=== PATIENT | female | born 1950 | race Caucasian/White ===

== ENCOUNTER 2022-05-25 09:00 | Outpatient (RCR) | payer MEDICARE, BC, SELFPAY | END 2022-06-28 11:31 | disposition home or self-care (01) | PROVIDERS: PCP Family Medicine; Visit Provider Orthopaedic Surgery | DX: M25.562 Pain in left knee (principal) | CPT/HCPCS: 97110 ==

== ENCOUNTER 2022-09-07 10:57 | Outpatient (CLI) | payer MEDICARE, BC, SELFPAY ==
[2022-09-07 11:09] VITALS: BP 186/77; PULSE 76; RESP 18; O2SAT 96
[2022-09-07] MEDS: TETRACAINE 0.5% OPHTH 1 DROP EYE-LEFT ×3 (11:11→11:39)
[2022-09-07] MEDS: BRIMONIDINE TARTRATE 0.2% OPHTH 1 DROP EYE-LEFT ×2 (11:12→11:48)
--- NOTE | 2022-09-07 13:37 | P.OPTPRC_ITS ---
Procedure Note Date of procedure: 09/07/22 Will [facility] bill your pro fee for this procedure?: Yes Procedure Description: SURGEON: Karley West MD PREOPERATIVE DIAGNOSIS: Posterior capsular opacity, left eye POSTOPERATIVE DIAGNOSIS: Posterior capsular opacity, left eye PROCEDURE: YAG laser capsulotomy, left eye ANESTHESIA: Topical. ESTIMATED BLOOD LOSS: None PATHOLOGY SPECIMEN: None COMPLICATIONS: None INDICATIONS: See consult note for details. The risks, benefits and alternatives of the procedure were explained to the patient, who elected to proceed and signed informed consent to do so. PROCEDURE: The patient was brought to the pre-holding area where the left eye was identified as the operative eye. I placed my initials above this eye. The patient received 2 sets of 1 drop of 0.5% tetracaine and 1 drop of 1% tropicamide. They also received 1 drop of 0.2% brimonidine. They received 1 drop of 0.5% tetracaine immediately prior to bringing them back for the procedure. The patient was then brought to the procedure room where the left eye was again identified as the operative eye. A YAG Nile capsulotomy lens was placed on the eye. The laser was administered using a total number of 15 shots with an energy of 2.4 mJ per shot for a total energy of 36 mJ. The patient tolerated the procedure well. DISPOSITION: The patient was taken back to the pre-holding area and given 1 drop of 0.2% brimonidine in the left eye. They were discharged to home in stable condition. The patient was instructed to call me or go to the emergency department with any sudden change, including dramatic loss of vision, severe pain in the eye or eyebrow region, nausea, or vomiting. The patient was instructed to use the 0.2% brimonidine 1 drop 2 times a day in the left eye for 1 week. The patient will follow up in the clinic in 1-2 weeks Surgeon: Karley West MD
== END 2022-09-07 11:54 | disposition home or self-care (01) ==
PROVIDERS: PCP Family Medicine; Visit Provider Ophthalmology
DX: H26.9 Unspecified cataract (principal)
CPT/HCPCS: 66821; A9270

== ENCOUNTER 2023-09-03 15:14 | Outpatient (CLI) | payer MEDICARE, BC, SELFPAY | END 2023-09-03 15:15 | disposition home or self-care (01) | LOC: AMB 09-06 11:44 | PROVIDERS: PCP Family Medicine; Visit Provider Emergency Medicine | DX: R53.1 Weakness (principal) | CPT/HCPCS: A0998 ==

== ENCOUNTER 2023-09-17 13:28 | Outpatient (CLI) | payer MEDICARE, BC, SELFPAY | END 2023-09-17 13:29 | disposition home or self-care (01) | LOC: AMB 09-18 10:12 | PROVIDERS: PCP Family Medicine; Visit Provider Family Medicine | DX: R20.0 Anesthesia of skin (principal); R53.1 Weakness | CPT/HCPCS: A0425; A0429 ==

== ENCOUNTER 2023-09-17 13:56 | Emergency (ER) | payer MEDICARE, BC, SELFPAY ==
[2023-09-17] VITALS (17 sets, daily range): BP systolic 146–182; BP diastolic 81–119; PULSE 67–90; TEMP 36.2; O2SAT 87–98; BMI 36.9
--- NOTE | 2023-09-17 14:37 | ED_ITS ---
HPI - General Adult General Time Seen by Provider: 14:37 Date Seen: 09/17/23 Chief complaint: Flank Pain Stated complaint: Flank pain Time Seen by Provider: 09/17/23 14:00 Source: patient and RN notes reviewed Mode of arrival: ambulatory Limitations: no limitations History of Present Illness HPI narrative: This 73-year-old female presents with her with concern of left-sided pain in left leg pain. History is complex. She admits she is sleep deprived it, oxycodone is still not helping her sleep due to her symptoms. About 4 weeks ago she was being treated for sciatica, eventually had a CT done in clinic with her primary provider Dr. Sterling. This showed a obstructing kidney stone on the left side reportedly and an ovarian cyst. She does endorse that she has had a follow-up ultrasound, there still working on the follow-up on the definitive care for the ovary. With the kidney stone found, she was having flank pain as well as left leg pain. Initially thought she was just having sciatica but the stone was found. Two weeks ago the parking enforcement manager had Sanjay get her off the floor as she fell because of her left leg symptoms, she is walking with a walker at home, does not really trust her leg to not give out. She feels like this left leg is no longer strong. She saw a urologist in [place] about 3 weeks ago, had a stent placed at [place]. She states they were not going to be able to do the stone removal until October. Her doctor called the urologist at [place], he was able to get her in and she had the left kidney stone removed on September 13. The urologist in [place] replace the stent last week, she is scheduled to see him this upcoming weekend likely have it removed. 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 She has had a numb left leg since then, states she did see Neurology, sounds if she had EMG is to diagnosis. She originally had a footdrop on this side in more brace. After about a year waiting, she was able to wean out of the brace. They stated that this nerve damage was idiopathic, had really no reason for it. They told her that the nerve would heal about an inch per month but she has never develope sensation back in this leg. It is numb from the hip down to the toes. She is not having any footdrop now. She did have a left total knee arthroplasty about a urine half ago, had a prior scope on this knee for cartilage damage. Her right knee has been replaced as well. She just noting that the left leg just seems to be giving out, does not really have any pain in the knee. She is getting sharp shooting pain up and down the leg, worse at night when she goes to bed. It is not precipitated by exercise. As far as urinary incontinence, she can not really tell as there has been incontinent since the stents have been placed at times. She has been using oxycodone for pain, this is not helping at night, she is not sleeping. She feels like she still having normal stools, is not noting constipation from her use of oxycodone. She knows that having stents in can be painful, does endorse ongoing left flank pain as well. No fevers. Related Data Home Medications Medication Instructions Recorded Confirmed cholecalciferol (vitamin D3) 25 25 mcg PO DAILY 06/14/22 09/17/23 mcg (1,000 unit) tablet diphenhydramine 25 2 tab PO .Bedtime 06/14/22 12/14/22 mg-acetaminophen 500 mg tablet fluoxetine 60 mg tablet 60 mg PO QAM 06/14/22 12/14/22 lisinopril 40 mg tablet 40 mg PO QDAY 06/14/22 09/17/23 rosuvastatin 10 mg tablet 10 mg PO .Bedtime 06/14/22 09/17/23 triamterene 37.5 1 tab PO DAILY 06/14/22 09/17/23 mg-hydrochlorothiazide 25 mg tablet fluoxetine 40 mg capsule 40 mg PO 12/14/22 12/14/22 cefdinir 300 mg capsule 300 mg PO Q12H 09/17/23 09/17/23 methocarbamol 500 mg tablet PO 09/17/23 omeprazole 40 mg capsule,delayed 40 mg PO DAILY 09/17/23 09/17/23 release oxycodone 5 mg tablet 5 mg PO Q6H PRN pain 09/17/23 09/17/23 Previous Rx's Medication Instructions Recorded gabapentin 100 mg capsule 100 mg PO QHS #10 caps 09/17/23 Allergies Allergy/AdvReac Type Severity Reaction Status Date / Time shellfish derived AdvReac Verified 09/17/23 14:15 Review of Systems Status of ROS: Reports: 10 or more systems reviewed and unremarkable except as noted in History and below [facility] Medical History High cholesterol ?E78.00 - Pure hypercholesterolemia, unspecified (ICD-10) Shingles ?B02.9 - Zoster without complications (ICD-10) Kidney stones ?N20.0 - Calculus of kidney (ICD-10) Surgical History History of cholecystectomy ?Z90.49 - Acquired absence of other specified parts of digestive tract (ICD- 10) Previous section (1981) ?Z98.891 - History of uterine scar from previous surgery (ICD-10) History of medial meniscus repair of left knee (12/08/06) ?Z98.890 - Other specified postprocedural states (ICD-10) 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) ?Z96.651 - Presence of right artificial knee joint (ICD-10) Status post left knee replacement (12/30/21) ?Z96.652 - Presence of left artificial knee joint (ICD-10) Social History Smoking Status: Never smoker Do you use any of these nicotine containing products: None Second hand tobacco smoke exposure: No How often do you have a drink containing alcohol: never How often do you have six or more drinks on one occasion: Never AUDIT-C Alcohol total score: 0 Non-prescribed substance use: denies use Exam Const: Vital Signs, click to edit/add: Vital Signs - 24 hr 09/17/23 13:58 09/17/23 14:31 09/17/23 14:32 Temperature 97.1 F L Pulse Rate 71 67 Pulse Rate [Right Pulse Oximeter] 83 Blood Pressure 167/88 H Blood Pressure [Le ft Upper Arm] 159/100 H Pulse Oximetry 98 93 95 Oxygen Delivery Me thod Room Air 09/17/23 14:45 09/17/23 15:00 09/17/23 15:02 Temperature Pulse Rate 76 73 72 Pulse Rate [Right Pulse Oximeter] Blood Pressure 182/104 H Blood Pressure [Le ft Upper Arm] Pulse Oximetry 97 94 93 Oxygen Delivery Me thod 09/17/23 16:01 09/17/23 16:02 09/17/23 16:15 Temperature Pulse Rate 77 75 79 Pulse Rate [Right Pulse Oximeter] Blood Pressure 146/97 H Blood Pressure [Le ft Upper Arm] Pulse Oximetry 97 98 96 Oxygen Delivery Me thod 09/17/23 16:30 09/17/23 16:32 Temperature Pulse Rate 70 69 Pulse Rate [Right Pulse Oximeter] Blood Pressure 153/81 H Blood Pressure [Le ft Upper Arm] Pulse Oximetry 96 96 Oxygen Delivery Me thod Patient is a very pleasant 73-year-old female in very talkative, speech is normal. She is alert, interactive, no parents stress, lying in the bed in exam room 8. Pupils equal round reactive, sclera clear, extraocular muscles intact. Symmetrical facial function. Neck is supple, no cervical adenopathy or thyromegaly masses or nodules. Lungs are clear, no wheezing or crackles, no tachypnea. CV regular rate and rhythm, no murmur, normal S1-S2, no S3 or S4. Abdomen is soft, nontender, no organomegaly or masses. She can lift each leg off the bed although on the left hip flexor, is maybe 4-5 instead of 5/5. Strength about the ankles is 5/5 and symmetric. There is no pitting edema in her lower extremities. She has normal sensation right leg, states the left leg he just feels numb when I touch it. Pulses are symmetric, no evidence of any vascular changes of her extremities. Documenting provider has reviewed patient's vital signs: yes Course Course ED Course: This is a difficult situation, patient has a known left leg idiopathic nerve damage of some sort, has left flank pain with known stent in place, no symptoms of infection. Is also an ovarian cyst of some sort. Do feel that we need to proceed with a lumbar MRI if I am able to secure this. Patient understands that we do not typically have coverage on the weekend, can see if we have staff that can do this at this time however. Certainly her stent can be giving her ongoing left flank pain, will get complement of labs including urinalysis, want to ensure no concern for infection. She indeed could have cord pathology or discogenic disease complicating the picture. If MRI of her back is not showing any evidence of anything acute, patient is idiopathic nerve damage which she reports might just be complicated by pain issues. Reevaluation(s) Time of Reevaluation #1: 17:47 Reevaluation #1: Reviewed with patient that her MRI is not suggestive of radiculopathy further the causation of her left leg symptoms. They do see the left adnexal mass, she reports she has had an ultrasound, her primary is working with her on definitive treatment of this as well. She likely just has ongoing pain from the stent as well, no evidence of infection at this time. She is on antibiotics, believe it is cefdinir. She should continue on this. Will certainly let her know if the urine culture shows any concerns. We are going to try gabapentin, do wonder if these leg symptoms are neuropathic or peripheral nerve pain, she may need to follow up with Neurology. She remembers taking gabapentin, tried once before, it did give her symptoms, sounds if she felt really lightheaded or woozy with it. We will try 100 mg just at bedtime, she is more than willing to try this, she states the pain at bedtime is really problematic for her. Thus, this really sounds like a neuropathic pain in the leg, think gabapentin might be a great place to start but will do so at a low dose of 100 mg. She understands that this may need to be titrated up with her primary care doctor. Vital Signs Vital signs: Initial Vital Signs Temperature 97.1 F L 09/17/23 13:58 Temperature Source Temporal Artery Scan 09/17/23 13:58 Pulse Rate 83 09/17/23 13:58 Blood Pressure 159/100 H 09/17/23 13:58 Blood Pressure Mean 119 H 09/17/23 13:58 Blood Pressure Position Semi-Fowlers 09/17/23 13:58 Pulse Oximetry 98 09/17/23 13:58 Oxygen Delivery Method Room Air 09/17/23 13:58 Vital Signs Temperature 97.1 F L 09/17/23 13:58 Pulse Rate 83 09/17/23 13:58 Blood Pressure 159/100 H 09/17/23 13:58 Pulse Oximetry 98 09/17/23 13:58 Oxygen Delivery Method Room Air 09/17/23 13:58 Temperature 97.1 F L 09/17/23 13:58 Pulse Rate 69 09/17/23 16:32 Blood Pressure 153/81 H 09/17/23 16:32 Pulse Oximetry 96 09/17/23 16:32 Oxygen Delivery Method Room Air 09/17/23 13:58 Medical Decision Making Lab Data Lab results reviewed: Yes I reviewed the patient's lab results Labs: Lab Results 09/17/23 09/17/23 Range/Units 15:11 15:25 WBC 8.88 (4.50-11.00) K/uL RBC 4.69 (4.00-5.20) m/uL Hgb 13.7 (12.0-16.0) gm/dL Hct 42.4 (33.0-51.0) % MCV 90 (80-100) fL MCH 29 (26-34) pg MCHC 32 (32-36) gm/dL RDW Coeff of Vilma 13.2 (11.5-15.5) % Plt Count 269 (140-440) K/uL Neut % (Auto) 67.3 (42.0-72.0) % Lymph % (Auto) 20.7 (20-44) % [place] % (Auto) 10.1 (0.0-11.0) % Eos % (Auto) 1.5 (0.0-7.0) % Baso % (Auto) 0.2 (0.0-3.0) % Neut # (Auto) 5.97 (1.7-7.0) K/uL Lymph # (Auto) 1.84 (0.90-2.90) K/uL [place] # (Auto) 0.90 (0.00-0.90) K/UL Eos # (Auto) 0.13 (0.00-0.50) K/uL Baso # (Auto) 0.02 (0.00-0.30) K/uL Abs Immat Gran (auto) 0.02 (0.00-0.30) K/uL Imm/Tot Granulo (auto) 0.2 % Sodium 136 (135-149) mmol/L Potassium 3.6 (3.6-5.1) mmol/L Chloride 105 (96-114) mmol/L Carbon Dioxide 26 (20-32) mmol/L Anion Gap 5 L (7-15) mEq/L BUN 16 (7-30) mg/dL Creatinine 0.5 (0.5-1.5) mg/dL Estimated Creat Clear 45.09 Estimated GFR 99 ml/min Glucose 105 (60-115) mg/dL Lactate 1.1 (0.5-1.9) mmol/L Calcium 8.9 (8.4-10.6) mg/dL Total Bilirubin 0.4 (0.1-1.5) mg/dL AST 23 (12-35) U/L ALT 18 (4-35) U/L Alkaline Phosphatase 60 (40-150) U/L C-Reactive Protein 0.8 (0.5-1.0) mg/dL Total Protein 6.9 (6.0-8.3) g/dL Albumin 3.7 (3.3-5.0) g/dL Urine Color Yellow (Yellow) Urine Appearance Cloudy A (Clear) Urine pH 7.0 (5.0-8.5) Ur Specific [place] 1.015 (1.000-1.030) Urine Protein 2+ A (Negative) Urine Glucose (UA) Negative (Negative) Urine Ketones Negative (Negative) Urine Blood 3+ A (Negative) Urine Nitrite Negative (Negative) Urine Bilirubin Negative (Negative) Urine Urobilinogen 0.2 (0.2-1.0) Ur Leukocyte Esterase 2+ A (Negative) Urine RBC 50-100 A (0-2) Urine WBC 5-10 A (0-5) Ur Squamous Epith Cells Few (None-Few) Urine Bacteria Few A (None) Imaging Data MR lumbar spine: Attestation: I have reviewed the pertinent imaging results. Radiologist's impression: [facility] Facility:[facility] Patient ID:?[id number] Site Patient ID:?[id number]. Site :?[id number] Study:?MRI Spine Lumbar WO-09/17/2023 4:08:22 PM Ordering Physician:Og Smith Final Report: Indication: Leg pain, numbness, weakness Technique: Multiplanar, multisequence, MRI of the lumbar spine, obtained without contrast. Comparison: CT abdomen pelvis 08/16/2023 Findings: Exaggerated lumbar lordosis. Trace retrolisthesis at L1-2, L2-3 and L3-4, trace anterolisthesis at L4-5 and L5-S1. No acute osseus abnormality. Unremarkable bone marrow signal. Conus medullaris terminates at approximately L2-3. No suspicious findings identified in the paraspinal soft tissues. Unremarkable including SI joints. Partially redemonstrated large left presumed adnexal cyst. T12-L1: Mild diffuse disc bulge. No neural foramina or spinal canal stenosis. L1-L2: Diffuse disc bulge, left asymmetric facet arthropathy. Mild bilateral neural foraminal narrowing. No spinal canal stenosis. L2-L3: Mild diffuse disc bulge, mild facet arthropathy. No significant neural f oraminal or spinal canal stenosis. L3-L4: Mild diffuse disc bulge, mild facet arthropathy. No significant neural foramina or spinal canal stenosis. L4-L5: Moderate facet arthropathy. No significant neural foraminal or spinal canal stenosis. L5-S1: Moderate facet arthropathy/ankylosis. No significant neural foraminal or spinal canal stenosis. Impression: 1. Exaggerated lumbar lordosis with multilevel trace degenerative spondylolisthesis. 2. Scattered spondylosis, without significant neural foraminal or spinal canal stenosis. 3. Redemonstration of large presumed left adnexal cyst, better assessed on prior CT abdomen and pelvis. Dictated by Eunice Fu MD @ 09/17/2023 4:51:01 PM (Electronic Signature) Critical Care Time Critical Care Time Critical Care Time: No Discharge Plan Discharge Clinical Impression: Neuropathy of left lower extremity, History of renal stent, Cyst of left ovary Patient Disposition: Home, Self-Care Condition: Stable Instructions: Peripheral Neuropathy (ED) Additional Instructions: Try gabapentin 100 mg at bedtime to start, this can be titrated up quite a bit, work with your primary care provider on doing this. You need to contact her tomorrow, see if you can get a follow-up within the next few days for re- evaluation/recheck. I would recommend considering going back to Neurology for further evaluation of your left leg symptoms. Bring a copy of the MRI report of your lumbar spine to your primary care provider. Can continue with your other medicines including oxycodone for pain management. Follow-up with urology as planned this week. Hopefully they will be able to take the stent out, this may help with some of the left flank pain. Need to continue to proceed with further workup and evaluation of the left ovarian cyst. Activity Level: Activity as Tolerated Prescriptions: New gabapentin 100 mg capsule 100 mg PO QHS Qty: 10 0RF No Action cholecalciferol (vitamin D3) 25 mcg (1,000 unit) tablet 25 mcg PO DAILY rosuvastatin 10 mg tablet 10 mg PO .Bedtime triamterene-hydrochlorothiazid 37.5-25 mg tablet 1 tab PO DAILY diphenhydramine-acetaminophen 25-500 mg tablet 2 tab PO .Bedtime lisinopril 40 mg tablet 40 mg PO QDAY fluoxetine 60 mg tablet 60 mg PO QAM fluoxetine 40 mg capsule 40 mg PO oxycodone 5 mg tablet 5 mg PO Q6H PRN (Reason: pain) methocarbamol 500 mg tablet PO omeprazole 40 mg capsule,delayed release(DR/EC) 40 mg PO DAILY cefdinir 300 mg capsule 300 mg PO Q12H Follow Up/Referrals: Wandy Sterling MD [Primary Care Provider] - Stand Alone Forms: [employer] Info Instructions
--- NOTE | 2023-09-17 14:59 | CRLHL7_ITS ---
For Patients: As a result of the Century Cures Act, medical imaging exams and procedure reports are released immediately into your electronic medical record. You may view this report before your referring provider. If you have questions, please contact your health care provider. Indication: Leg pain, numbness, weakness Technique: Multiplanar, multisequence, MRI of the lumbar spine, obtained without contrast. Comparison: CT abdomen pelvis 08/16/2023 Findings: Exaggerated lumbar lordosis. Trace retrolisthesis at L1-2, L2-3 and L3-4, trace anterolisthesis at L4-5 and L5-S1. No acute osseus abnormality. Unremarkable bone marrow signal. Conus medullaris terminates at approximately L2-3. No suspicious findings identified in the paraspinal soft tissues. Unremarkable including SI joints. Partially redemonstrated large left presumed adnexal cyst. T12-L1: Mild diffuse disc bulge. No neural foramina or spinal canal stenosis. L1-L2: Diffuse disc bulge, left asymmetric facet arthropathy. Mild bilateral neural foraminal narrowing. No spinal canal stenosis. L2-L3: Mild diffuse disc bulge, mild facet arthropathy. No significant neural foraminal or spinal canal stenosis. L3-L4: Mild diffuse disc bulge, mild facet arthropathy. No significant neural foramina or spinal canal stenosis. L4-L5: Moderate facet arthropathy. No significant neural foraminal or spinal canal stenosis. L5-S1: Moderate facet arthropathy/ankylosis. No significant neural foraminal or spinal canal stenosis. Impression: 1. Exaggerated lumbar lordosis with multilevel trace degenerative spondylolisthesis. 2. Scattered spondylosis, without significant neural foraminal or spinal canal stenosis. 3. Redemonstration of large presumed left adnexal cyst, better assessed on prior CT abdomen and pelvis. Dictated by Eunice Fu MD @ 09/17/2023 4:51:01 PM (Electronically Signed)
[2023-09-17 15:18] LABS: Basophils Absolute Auto 0.02 K/uL (0.00-0.30); Basophils Percent Auto 0.2 % (0.0-3.0); Eosinophils Absolute Auto 0.13 K/uL (0.00-0.50); Eosinophils Percent Auto 1.5 % (0.0-7.0); Hematocrit 42.4 % (33.0-51.0); Hemoglobin* 13.7 gm/dL (12.0-16.0); Immature Granulocytes Abs Auto 0.02 K/uL (0.00-0.30); Immature Granulocytes Pct Auto 0.2 %; Lactate* 1.1 mmol/L (0.5-1.9); Lymphocytes Absolute Auto 1.84 K/uL (0.90-2.90); Lymphocytes Percent Auto 20.7 % (20-44); Mean Corpuscular HGB Conc 32 gm/dL (32-36); Mean Corpuscular Hemoglobin 29 pg (26-34); Mean Corpuscular Volume 90 fL (80-100); Monocytes Percent Auto 10.1 % (0.0-11.0); Neutrophils Absolute Auto 5.97 K/uL (1.7-7.0); Neutrophils Percent Auto 67.3 % (42.0-72.0); Platelet Count* 269 K/uL (140-440); RDW Coefficient of Variation % 13.2 % (11.5-15.5); Red Blood Count 4.69 m/uL (4.00-5.20); White Blood Count* 8.88 K/uL (4.50-11.00)
[2023-09-17 15:23] LABS: Slide Review Reflex No
[2023-09-17 15:32] LABS: Appearance Urine Cloudy (Clear); Bilirubin Urine Negative (Negative); Blood Urine 3+ (Negative); Color Urine Yellow (Yellow); Glucose Urine Negative (Negative); Ketones Urine Negative (Negative); Leukocyte Esterase Urine 2+ (Negative); Nitrite Urine Negative (Negative); Protein Urine 2+ (Negative); Specific Gravity Urine 1.015 (1.000-1.030); Urobilinogen Urine 0.2 (0.2-1.0)
[2023-09-17 15:38] LABS: Albumin* 3.7 g/dL (3.3-5.0); Chloride* 105 mmol/L (96-114); Potassium* 3.6 mmol/L (3.6-5.1); Sodium* 136 mmol/L (135-149)
[2023-09-17 15:40] LABS: Creatinine* 0.5 mg/dL (0.5-1.5); Est. Creatinine Clearance* 45.09; Estimated Glomerular Filt Rate 99 ml/min
[2023-09-17 15:41] LABS: Alanine Aminotransferase* 18 U/L (4-35); Alkaline Phosphatase* 60 U/L (40-150); Anion Gap 5 mEq/L (7-15); Aspartate Amino Transferase* 23 U/L (12-35); Bilirubin Total* 0.4 mg/dL (0.1-1.5); Blood Urea Nitrogen* 16 mg/dL (7-30); Calcium* 8.9 mg/dL (8.4-10.6); Carbon Dioxide* 26 mmol/L (20-32); Glucose* 105 mg/dL (60-115); Total Protein* 6.9 g/dL (6.0-8.3)
[2023-09-17 15:45] LABS: C Reactive Protein* 0.8 mg/dL (0.5-1.0)
[2023-09-17 16:18] LABS: Bacteria Urine Few; RBC Urine 50-100 (0-2); Squamous Epithelial Cell Urine Few (None-Few)
== END 2023-09-17 18:15 | disposition home or self-care (01) ==
PROVIDERS: Emergency Provider Family Medicine; PCP Family Medicine
DX: G62.9 Polyneuropathy, unspecified (principal); N83.202 Unspecified ovarian cyst, left side
CPT/HCPCS: 36415; 72148; 80053; 81001; 83605; 85025; 86140; 87086; 99283; 99284

== ENCOUNTER 2023-09-22 14:30 | Outpatient (REF) | payer MEDICARE, BC, SELFPAY | END 2023-09-22 14:31 | disposition home or self-care (01) | LOC: NFLDREF 14:30 | PROVIDERS: PCP Family Medicine; Referring Provider Family Medicine; Visit Provider Obstetrics & Gynecology | DX: N83.202 Unspecified ovarian cyst, left side (principal) | CPT/HCPCS: 82378; 86301; 86304 ==

== ENCOUNTER 2023-09-28 07:50 | Outpatient (CLI) | payer MEDICARE, BC, SELFPAY | END 2023-09-28 07:51 | disposition home or self-care (01) | LOC: AMB 09-30 05:25 | PROVIDERS: PCP Family Medicine; Visit Provider Family Medicine | DX: R53.1 Weakness (principal) | CPT/HCPCS: A0998 ==

== ENCOUNTER 2023-09-30 18:07 | Observation (INO) | payer MEDICARE, BC, SELFPAY ==
[2023-09-30] VITALS (9 sets, daily range): BP systolic 124–160; BP diastolic 68–98; PULSE 62–82; RESP 16–20; TEMP 36.7–36.9; O2SAT 89–99; BMI 34.3; BMI 37.7
--- NOTE | 2023-09-30 18:39 | CRLHL7_ITS ---
For Patients: As a result of the Century Cures Act, medical imaging exams and procedure reports are released immediately into your electronic medical record. You may view this report before your referring provider. If you have questions, please contact your health care provider. INDICATION: Injury. TECHNIQUE: Three views of the right wrist. FINDINGS: Skeletal demineralization. Acute dorsally angulated and mildly impacted fracture of the distal right radius. Surrounding soft tissue swelling. Dictated by Guilherme Muir MD @ 09/30/2023 8:50:38 PM (Electronically Signed)
--- NOTE | 2023-09-30 18:42 | ED.UPPEXIN ---
HPI - Extremity Injury (Upper) General Chief Complaint: Extremity Pain/Injury, Upper <Zain Roberts MD - Last Filed: 09/30/23 20:46> Stated Complaint: Fall; possible broken wrist <Zain Roberts MD - Last Filed: 09/30/23 20:46> Time Seen by Provider: 09/30/23 18:07 <Zain Roberts MD - Last Filed: 09/30/23 20:46> History of Present Illness HPI narrative: This 73-year-old female comes in with an injury to her right wrist. She has been having pain in her low back radiating down her left leg and has been using a walker more readily because of increasing weakness from what sounds like a lumbar radiculopathy. Under these circumstances she lost her balance and fell onto her right hand and has injury to her right wrist. She does not report any other injury. She did not hit her head or have loss of consciousness. <Zain Roberts MD - Last Filed: 09/30/23 20:46> Related Data Home Medications: Home Medications Medication Instructions Recorded Confirmed cholecalciferol (vitamin D3) 25 25 mcg PO DAILY 06/14/22 09/22/23 mcg (1,000 unit) tablet diphenhydramine 25 2 tab PO .Bedtime 06/14/22 09/22/23 mg-acetaminophen 500 mg tablet lisinopril 40 mg tablet 40 mg PO QDAY 06/14/22 09/22/23 rosuvastatin 10 mg tablet 10 mg PO .Bedtime 06/14/22 09/22/23 triamterene 37.5 1 tab PO DAILY 06/14/22 09/22/23 mg-hydrochlorothiazide 25 mg tablet omeprazole 40 mg capsule,delayed 40 mg PO DAILY 09/17/23 09/22/23 release oxycodone 5 mg tablet 5 mg PO Q6H PRN pain 09/17/23 09/22/23 fluoxetine 40 mg capsule 80 mg PO 09/22/23 09/22/23 Previous Rx's Medication Instructions Recorded gabapentin 100 mg capsule 100 mg PO QHS #10 caps 09/17/23 <Zain Roberts MD - Last Filed: 09/30/23 20:46> Allergies/Adverse Reactions: Allergies Allergy/AdvReac Type Severity Reaction Status Date / Time shellfish derived AdvReac Verified 09/22/23 13:23 <Zain Roberts MD - Last Filed: 09/30/23 20:46> Review of Systems Status of ROS: Reports: 10 or more systems reviewed and unremarkable except as noted in History and below <Zain Roberts MD - Last Filed: 09/30/23 20:46> Narrative: Constitutional: No fevers, no weight gain or loss. Eyes: No discharge. No vision changes. HENT: No congestion, no sore throat, no ear pain. Cardiovascular: No chest pain, no palpitations. Respiratory: No shortness of breath, no wheezes, no cough. Gastrointestinal: No abdominal pain, no vomiting, no diarrhea. Genitourinary: No dysuria, no hematuria. Musculoskeletal: Right wrist injury as described above. Skin: No rashes, no pruritis. Neurological: No dizziness, weakness, sensory change, speech change. Endo/Heme/Allergies: No bruising or bleeding. No polydipsia. Pysch: no suicidality, no anxiety, no insomnia. All other systems reviewed and are negative. <Zain Roberts MD - Last Filed: 09/30/23 20:46> [facility] Medical History: Medical History High cholesterol ?E78.00 - Pure hypercholesterolemia, unspecified (ICD-10) Shingles ?B02.9 - Zoster without complications (ICD-10) Kidney stones ?N20.0 - Calculus of kidney (ICD-10) <Zain Roberts MD - Last Filed: 09/30/23 20:46> Surgical History: Surgical History History of cholecystectomy ?Z90.49 - Acquired absence of other specified parts of digestive tract (ICD-10) Previous section (1981) ?Z98.891 - History of uterine scar from previous surgery (ICD-10) History of medial meniscus repair of left knee (12/08/06) ?Z98.890 - Other specified postprocedural states (ICD-10) 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) ?Z96.651 - Presence of right artificial knee joint (ICD-10) Status post left knee replacement (12/30/21) ?Z96.652 - Presence of left artificial knee joint (ICD-10) <Zain Roberts MD - Last Filed: 09/30/23 20:46> Social History: Social History Smoking Status: Never smoker Do you use any of these nicotine containing products: None Second hand tobacco smoke exposure: No How often do you have a drink containing alcohol: never How often do you have six or more drinks on one occasion: Never AUDIT-C Alcohol total score: 0 Non-prescribed substance use: denies use <Zain Roberts MD - Last Filed: 09/30/23 20:46> Exam Narrative: Exam Narrative: Constitutional: Well-developed, well-nourished, no acute distress. HEENT: Normocephalic, atraumatic. Neck: Normal range of motion. Nontender. Supple. Heart: Regular. No murmurs. Normal rate. Intact distal pulses. Lungs: Clear to auscultation. No chest discomfort. No wheezes, rhonchi, or rales. Abdomen: Normal bowel sounds. Nontender. No rebound tenderness. Genitalia: Deferred. Back: No midline tenderness. Normal range of motion. Extremities: Right wrist appears to have a deformity typical of a fracture. There is mild swelling. She is moving her fingers normally. Skin: Intact. No rash. Warm. No erythema or pallor. Neurologic: No altered sensation. No weakness. Alert and oriented. Psychiatric: No suicidality. No anxiety or depression. No insomnia. Nursing notes and vitals signs are reviewed. <Zain Roberts MD - Last Filed: 09/30/23 20:46> Const: Vital Signs, click to edit/add: Vital Signs - 24 hr 09/30/23 18:22 Temperature 98.5 F Pulse Rate [Right Pulse Oximeter] 82 Respiratory Rate 18 Blood Pressure [Ri ght Upper Arm] 154/68 H Pulse Oximetry 97 Oxygen Delivery Me thod Room Air <Zain Roberts MD - Last Filed: 09/30/23 20:46> Vital Signs, click to edit/add: Vital Signs - 24 hr 09/30/23 18:22 Temperature 98.5 F Pulse Rate [Right Pulse Oximeter] 82 Respiratory Rate 18 Blood Pressure [Ri ght Upper Arm] 154/68 H Pulse Oximetry 97 Oxygen Delivery Me thod Room Air <Sarah Gunn MD - Last Filed: 09/30/23 20:41> Course Reevaluation(s) Time of Reevaluation #1: 20:40 <Sarah Gunn MD - Last Filed: 09/30/23 20:41> Reevaluation #1: Assisted Dr. Roberts for anesthesia/respiratory care while he performed wrist reduction. Please see his note for his procedure. Patient was on appropriate cardiac monitoring, capnography, pulse oximetry and supplemental oxygen. A single IV push of 60 mg propofol fall was given with achievement of conscious sedation but maintained respiratory status. Patient had no adverse effects, recovered without any intervention. <Sarah Gunn MD - Last Filed: 09/30/23 20:41> Vital Signs Vital signs: Initial Vital Signs Temperature 98.5 F 09/30/23 18:22 Temperature Source Temporal Artery Scan 09/30/23 18:22 Pulse Rate 82 09/30/23 18:22 Respiratory Rate 18 09/30/23 18:22 Blood Pressure 154/68 H 09/30/23 18:22 Blood Pressure Mean 96 09/30/23 18:22 Blood Pressure Position Sitting 09/30/23 18:22 Pulse Oximetry 97 09/30/23 18:22 Oxygen Delivery Method Room Air 09/30/23 18:22 Vital Signs Temperature 98.5 F 09/30/23 18:22 Pulse Rate 82 09/30/23 18:22 Respiratory Rate 18 09/30/23 18:22 Blood Pressure 154/68 H 09/30/23 18:22 Pulse Oximetry 97 09/30/23 18:22 Oxygen Delivery Method Room Air 09/30/23 18:22 Temperature 98.5 F 09/30/23 18:22 Pulse Rate 82 09/30/23 18:22 Respiratory Rate 18 09/30/23 18:22 Blood Pressure 154/68 H 09/30/23 18:22 Pulse Oximetry 97 09/30/23 18:22 Oxygen Delivery Method Room Air 09/30/23 18:22 <Zain Roberts MD - Last Filed: 09/30/23 20:46> Initial Vital Signs Temperature 98.5 F 09/30/23 18:22 Temperature Source Temporal Artery Scan 09/30/23 18:22 Pulse Rate 82 09/30/23 18:22 Respiratory Rate 18 09/30/23 18:22 Blood Pressure 154/68 H 09/30/23 18:22 Blood Pressure Mean 96 09/30/23 18:22 Blood Pressure Position Sitting 09/30/23 18:22 Pulse Oximetry 97 09/30/23 18:22 Oxygen Delivery Method Room Air 09/30/23 18:22 Vital Signs Temperature 98.5 F 09/30/23 18:22 Pulse Rate 82 09/30/23 18:22 Respiratory Rate 18 09/30/23 18:22 Blood Pressure 154/68 H 09/30/23 18:22 Pulse Oximetry 97 09/30/23 18:22 Oxygen Delivery Method Room Air 09/30/23 18:22 Temperature 98.5 F 09/30/23 18:22 Pulse Rate 82 09/30/23 18:22 Respiratory Rate 18 09/30/23 18:22 Blood Pressure 154/68 H 09/30/23 18:22 Pulse Oximetry 97 09/30/23 18:22 Oxygen Delivery Method Room Air 09/30/23 18:22 <Sarah Gunn MD - Last Filed: 09/30/23 20:41> Medications Administered Medications: Generic Name Dose Route Start Last Admin Trade Name Freq PRN Reason Stop Dose Admin Lidocaine HCl 30 ml 09/30/23 19:23 09/30/23 19:32 Lidocaine 1 % Pf 30 Ml INJECTION 30 ml ONCE PRN Administration <Zain Roberts MD - Last Filed: 09/30/23 20:46> Generic Name Dose Route Start Last Admin Trade Name Freq PRN Reason Stop Dose Admin Lidocaine HCl 30 ml 09/30/23 19:23 09/30/23 19:32 Lidocaine 1 % Pf 30 Ml INJECTION 30 ml ONCE PRN Administration <Sarah Gunn MD - Last Filed: 09/30/23 20:41> MDM - Extremity Injury (Upper) MDM Narrative Medical decision making narrative: This patient comes in with an injury to her right wrist. X-ray imaging shows a fracture of the distal radius with possible ulna involvement. Radiology report is pending. There is an angulation to this injury that would improve with the reduction. I did discuss options with the patient including hematoma block and propofol sedation. An attempt at hematoma block was made using 1% lidocaine. This provided partial relief but not sufficient enough to accurately reduce the fracture. Arrangements were then made for deep sedation for reduction of the right wrist. Anesthesia was contacted in planning to come in to assist with this but was called into a emergency . Dr. Diaz assisted in this procedure. After acquiring informed consent the patient received 60 mg of propofol intravenously to acquire adequate sedation. A reduction was performed and x-ray images at the bedside showed improved position. The patient was placed in a sugar-tong type splint using Ortho Glass material. This patient needs to use a walker to ambulate because of significant pain and weakness in her left leg. She states that she will be unable to carry out activities of daily living with her right wrist in a splint. I did speak with the hospitalist behavioral health consultant, Dr. Urias, who agrees to her admission into the hospital to arrange some kind a rehab option for her. <Zain Roberts MD - Last Filed: 09/30/23 20:46> Discharge Plan Discharge Clinical Impression: Acute lumbar radiculopathy, Fracture of wrist <Zain Roberts MD - Last Filed: 09/30/23 20:46> Patient Disposition: Admitted As Observation <Zain Roberts MD - Last Filed: 09/30/23 20:46> Condition: Improved <Zain Roberts MD - Last Filed: 09/30/23 20:46> Prescriptions: No Action cholecalciferol (vitamin D3) 25 mcg (1,000 unit) tablet 25 mcg PO DAILY rosuvastatin 10 mg tablet 10 mg PO .Bedtime triamterene-hydrochlorothiazid 37.5-25 mg tablet 1 tab PO DAILY diphenhydramine-acetaminophen 25-500 mg tablet 2 tab PO .Bedtime lisinopril 40 mg tablet 40 mg PO QDAY fluoxetine 40 mg capsule 80 mg PO oxycodone 5 mg tablet 5 mg PO Q6H PRN (Reason: pain) omeprazole 40 mg capsule,delayed release(DR/EC) 40 mg PO DAILY gabapentin 100 mg capsule 100 mg PO QHS Qty: 10 0RF <Zain Roberts MD - Last Filed: 09/30/23 20:46> Follow Up/Referrals: Wandy Sterling MD [Primary Care Provider] - <Zain Roberts MD - Last Filed: 09/30/23 20:46>
[2023-09-30] MEDS: LIDOCAINE 1 % PF 30 ML INJECTION (19:32)
--- NOTE | 2023-09-30 20:19 | CRLHL7_ITS ---
For Patients: As a result of the Cures Act, medical imaging exams and procedure reports are released immediately into your electronic medical record. You may view this report before your referring provider. If you have questions, please contact your health care provider. Indication: Postreduction. Technique: Two views of the right wrist. Comparison: Right wrist radiographs earlier same day, dated 09/30/2023. Findings/Impression: Improved alignment of the distal radial metaphyseal fracture, with persistent 3 mm radial displacement and 4 mm dorsal displacement of the distal fracture fragment. No significant dorsal angulation. Possible additional small triquetral fracture. Associated soft tissue swelling is present. Bones are osteopenic. Dictated by Meghann Charles MD @ 09/30/2023 9:44:37 PM (Electronically Signed)
[2023-09-30] MEDS: 0.9 % SODIUM CHLORIDE 500 ML 500 ML IV (20:25)
[2023-09-30] MEDS: PROPOFOL 10 MG/ML INJ 200 MG IV (20:26)
[2023-09-30] MEDS: HYDROmorphone 0.5 mg/0.5 ml inj 0.3 MG IVP (21:30)
[2023-09-30 21:57] LABS: PCR FLU A Negative PCR FLU A (Negative); PCR FLU B Negative PCR FLU B (Negative); PCR RSV Negative PCR RSV (Negative)
[2023-09-30 22:13] LABS: SARS PCR* Negative SARS-CoV-2 (Negative)
--- NOTE | 2023-09-30 22:19 | PM.IMHP1 ---
Hospitalist- H&P: PALMER History of Present Illness Time Seen by Provider: 22:00 Date Seen: 09/30/23 Chief complaint: Fall; possible broken wrist Narrative: Martha Brooks is a 73 year old female who's struggled with left leg pain and weakness over the past few months which has lead her to using a walker and having several falls recently. Today she tripped in her study and broke her right wrist. She says this all started a few months ago when she developed severe pain in her left hip that radiated down her left leg. She denies any incontinence of bowel or bladder. 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 She saw Dr. Sterling on several occasions for this pain and was initially prescribed a Medrol Dosepak along with oxycodone p.r.n.. She did not notice any improvement with either these medications. She really only use oxycodone at night to try to help her sleep, but noticed no difference in pain. Her doctor then ordered a CT, which showed a renal stone and an ovarian cyst. She was referred to a urologist at [facility] and a enterprise resource planning consultant here at [facility]. The urologist she saw put in the stent and wanted to do surgery on her kidney stone, but the stent caused increased pain and so she saw a different urologist at [facility] who took out the stent and removed the stone via lithotripsy. The enterprise resource planning consultant said that the ovarian cyst was not likely the cause of her pain. Martha continued to have significant pain and felt like her leg was getting weak, so she went back to her doctor then as referred her to a senior quality assurance specialist at [facility]. She has had an MRI of her lumbar spine, the results of which are below. She was also recently started on gabapentin and finish another higher dose Medrol Dosepak. She feels like the gabapentin has been helpful, but her leg continues to be weak and so she uses a walker. In the last week and a half she has fallen 4 times. Today was the 4th time. She was in her study wrapping presents when she tripped and caught herself with her outstretched hand. She immediately had pain in was unable to get off floor. Some friends came over to deliver presents to her and found her on the floor, helped her get up and get to the emergency room. The other 3 time she has fallen, her has been unable to get her up himself because he has Parkinson's. They have had to call EMS to get her off the floor. Today she and her said that they just would not be able to care for her safely at home with a broken wrist since she would not be able to use her walker well enough to ambulate independently. Review of Systems Status of ROS: Reports: 10 or more systems reviewed and unremarkable except as noted in History and below [facility] Medical History (Updated 10/01/23 @ 00:15 by Erum Urias MD) Ulcer of esophagus without bleeding ?K22.10 - Ulcer of esophagus without bleeding (ICD-10) Left peroneal nerve palsy ?G57.32 - Lesion of lateral popliteal nerve, left lower limb (ICD-10) Small vessel disease, cerebrovascular ?I67.9 - Cerebrovascular disease, unspecified (ICD-10) Major depressive disorder ?F32.9 - Major depressive disorder, single episode, unspecified (ICD-10) Benign neoplasm of colon ?D12.6 - Benign neoplasm of colon, unspecified (ICD-10) Essential hypertension ?I10 - Essential (primary) hypertension (ICD-10) High cholesterol ?E78.00 - Pure hypercholesterolemia, unspecified (ICD-10) Shingles ?B02.9 - Zoster without complications (ICD-10) Kidney stones ?N20.0 - Calculus of kidney (ICD-10) Surgical History (Updated 09/30/23 @ 22:01 by Erum Urias MD) H/O lithotripsy (~2008) ?Z98.890 - Other specified postprocedural states (ICD-10) H/O dilation and curettage ?Z98.890 - Other specified postprocedural states (ICD-10) H/O esophagogastroduodenoscopy ?Z98.890 - Other specified postprocedural states (ICD-10) H/O colonoscopy ?Z98.890 - Other specified postprocedural states (ICD-10) History of cholecystectomy ?Z90.49 - Acquired absence of other specified parts of digestive tract (ICD-10) Previous section (1981) ?Z98.891 - History of uterine scar from previous surgery (ICD-10) History of medial meniscus repair of left knee (12/08/06) ?Z98.890 - Other specified postprocedural states (ICD-10) 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 Lifelong nonsmoker. 1-2 glasses of wine per week. FULL CODE. What is your current living situation?: I presently have a place to live Problems where you live: no known problems Problems where you live details: n/a In the past 12 months, utilities in danger of being shut off: no In past 12 months, lack of transportation kept you from medical appts, meetings, work, or getting things needed for daily living: no In the past 12 mos, have been you worried that your food would run out before you had money to buy more?: never true In the past 12 mos, the food you bought just didn't last and you didn't have money to buy more?: never true Highest level of school completed/degree received: Doctoral degree Smoking Status: Never smoker Do you use any of these nicotine containing products: None Second hand tobacco smoke exposure: No How often do you have a drink containing alcohol: 2-4 times a month How often do you have six or more drinks on one occasion: Never AUDIT-C Alcohol total score: 2 Non-prescribed substance use: denies use Caffeine: Yes (coffee) How often does anyone, including family, friends and others, physically hurt you: never How often does anyone, including family, friends and others, insult or talk down to you: never How often does anyone, including family, friends and others, threaten you with harm: never How often does anyone, including family, friends and others, scream or curse at you: never service: No Meds Home Medications and Allergies Home Medications Medication Instructions Recorded Confirmed Type cholecalciferol (vitamin D3) 25 25 mcg PO DAILY 06/14/22 09/30/23 History mcg (1,000 unit) tablet lisinopril 40 mg tablet 40 mg PO QDAY 06/14/22 09/30/23 History rosuvastatin 10 mg tablet 10 mg PO DAILY 06/14/22 09/30/23 History triamterene 37.5 1 tab PO DAILY 06/14/22 09/30/23 History mg-hydrochlorothiazide 25 mg tablet omeprazole 40 mg capsule,delayed 40 mg PO DAILY 09/17/23 09/30/23 History release oxycodone 5 mg tablet 5 mg PO Q6H PRN pain 09/17/23 09/30/23 History fluoxetine 40 mg capsule 40 mg PO DAILY 09/22/23 09/30/23 History acetaminophen 500 mg tablet 500 - 1,000 mg PO Q6H PRN 09/30/23 09/30/23 History gabapentin 100 mg capsule See Rx Instructions PO .COMPLEX 09/30/23 09/30/23 History Allergies Allergy/AdvReac Type Severity Reaction Status Date / Time shellfish derived AdvReac Verified 09/22/23 13:23 Exam Narrative: Exam Narrative: General: No acute distress. Awake alert oriented x3. Affect: Agitated. HEENT: Normocephalic atraumatic, pupils equally round and reactive to light and accommodation. Oropharynx clear. Mucous membranes are moist. No cervical lymphadenopathy, thyromegaly or carotid bruits. No JVD. Cardiovascular: Regular rate and rhythm. No murmurs, gallops, or rubs. Chest: No increased work of breathing. Clear to auscultation bilaterally. No crackles or wheezes. Abdomen: Bowel sounds present. Soft, nondistended, nontender. No hepatosplenomegaly or masses. Back: Pain at left SI joint with palpation, reproduces pain. Tender to palpation down through left lateral thigh then through left anterior lower leg. Extremities: Right wrist casted, in sling. Straight leg raises are negative for pain bilaterally. Good passive ROM of both hips without pain. No edema, no cyanosis or clubbing. Skin: No jaundice, no pallor, no rashes. Neuro: Limited exam of right arm due to wrist fracture. Strength is 5/5 in other 3 extremities with the exception of mild left foot drop. Light touch sensation is diminished in left perales, otherwise is intact in face body and extremities. Const: Vital Signs, click to edit/add: Vital Signs - 24 hr 09/30/23 18:22 09/30/23 19:58 09/30/23 20:25 Temperature 98.5 F Pulse Rate [Pulse Oximeter] Pulse Rate [Right Pulse Oximeter] 82 64 Respiratory Rate 18 16 Blood Pressure [Le ft Arm] Blood Pressure [Ri ght Upper Arm] 154/68 H 140/78 H Pulse Oximetry 97 99 96 Oxygen Delivery Me thod Room Air Nasal Cannula Oxygen Flow Rate 4 09/30/23 20:30 09/30/23 20:35 09/30/23 20:40 Temperature Pulse Rate [Pulse Oximeter] Pulse Rate [Right Pulse Oximeter] 67 69 62 Respiratory Rate 16 16 16 Blood Pressure [Le ft Arm] Blood Pressure [Ri ght Upper Arm] 124/90 H 145/98 H 150/86 H Pulse Oximetry 89 99 99 Oxygen Delivery Me thod Oxygen Flow Rate 09/30/23 20:45 09/30/23 21:34 Temperature 98.3 F Pulse Rate [Pulse Oximeter] 68 Pulse Rate [Right Pulse Oximeter] 66 Respiratory Rate 16 20 Blood Pressure [Le ft Arm] 160/81 H Blood Pressure [Ri ght Upper Arm] 151/95 H Pulse Oximetry 99 97 Oxygen Delivery Me thod Room Air Oxygen Flow Rate Hospitalist - H&P: Result Labs Labs: Ordering Physician: Sarah Gunn M.D. Date of Service: 09/17/23 Procedure(s): MR lumbar spine wo con Accession Number(s): [id number] cc: Wandy Sterling M.D.; Sarah Gunn M.D.~ For Patients: As a result of the Century Cures Act, medical imaging exams and procedure reports are released immediately into your electronic medical record. You may view this report before your referring provider. If you have questions, please contact your health care provider. Indication: Leg pain, numbness, weakness Technique: Multiplanar, multisequence, MRI of the lumbar spine, obtained without contrast. Comparison: CT abdomen pelvis 08/16/2023 Findings: Exaggerated lumbar lordosis. Trace retrolisthesis at L1-2, L2-3 and L3-4, trace anterolisthesis at L4-5 and L5-S1. No acute osseus abnormality. Unremarkable bone marrow signal. Conus medullaris terminates at approximately L2-3. No suspicious findings identified in the paraspinal soft tissues. Unremarkable including SI joints. Partially redemonstrated large left presumed adnexal cyst. T12-L1: Mild diffuse disc bulge. No neural foramina or spinal canal stenosis. L1-L2: Diffuse disc bulge, left asymmetric facet arthropathy. Mild bilateral neural foraminal narrowing. No spinal canal stenosis. L2-L3: Mild diffuse disc bulge, mild facet arthropathy. No significant neural foraminal or spinal canal stenosis. L3-L4: Mild diffuse disc bulge, mild facet arthropathy. No significant neural foramina or spinal canal stenosis. L4-L5: Moderate facet arthropathy. No significant neural foraminal or spinal canal stenosis. L5-S1: Moderate facet arthropathy/ankylosis. No significant neural foraminal or spinal canal stenosis. Impression: 1. Exaggerated lumbar lordosis with multilevel trace degenerative spondylolisthesis. 2. Scattered spondylosis, without significant neural foraminal or spinal canal stenosis. 3. Redemonstration of large presumed left adnexal cyst, better assessed on prior CT abdomen and pelvis. Dictated by Eunice Fu MD @ 09/17/2023 4:51:01 PM (Electronically Signed) Ordering Physician: Zain Roberts M.D. Date of Service: 09/30/23 Procedure(s): XR wrist RT min 3V Accession Number(s): [id number] cc: Zain Roberts M.D.; Wandy Sterling M.D.~ For Patients: As a result of the Century Cures Act, medical imaging exams and procedure reports are released immediately into your electronic medical record. You may view this report before your referring provider. If you have questions, please contact your health care provider. INDICATION: Injury. TECHNIQUE: Three views of the right wrist. FINDINGS: Skeletal demineralization. Acute dorsally angulated and mildly impacted fracture of the distal right radius. Surrounding soft tissue swelling. Dictated by Guilherme Muir MD @ 09/30/2023 8:50:38 PM (Electronically Signed) Ordering Physician: Zain Roberts M.D. Date of Service: 09/30/23 Procedure(s): XR wrist RT 2V Accession Number(s): [id number] cc: Zain Roberts M.D.; Wandy Sterling M.D.~ For Patients: As a result of the Cures Act, medical imaging exams and procedure reports are released immediately into your electronic medical record. You may view this report before your referring provider. If you have questions, please contact your health care provider. Indication: Postreduction. Technique: Two views of the right wrist. Comparison: Right wrist radiographs earlier same day, dated 09/30/2023. Findings/Impression: Improved alignment of the distal radial metaphyseal fracture, with persistent 3 mm radial displacement and 4 mm dorsal displacement of the distal fracture fragment. No significant dorsal angulation. Possible additional small triquetral fracture. Associated soft tissue swelling is present. Bones are osteopenic. Dictated by Meghann Charles MD @ 09/30/2023 9:44:37 PM (Electronically Signed) Assessment and Plan Assessment and plan (1) Fracture of wrist: Problem comment: - reduced in the emergency department and casted. - I have increased her gabapentin and have ordered oxycodone for pain. I have also ordered p.r.n. IV hydromorphone for breakthrough pain and continuous pulse oximeter. - disposition will be an issue since she is unable to use her walker with a broken wrist. She will likely need rehab. Await PT and OT evaluations tomorrow. Status: Acute (2) Osteoporosis: Problem comment: Bones appear osteoporotic on x-ray of wrist. Patient is already on vitamin D. Will add calcium. Status: Suspected (3) Acute lumbar radiculopathy: Problem comment: - increase gabapentin, as this was helpful. Add lidocaine patch. PT and OT evaluations. [facility] I am not finding any thing to suggest a need for urgent neurosurgery consult. Status: Acute (4) Essential hypertension: Problem comment: Continue home antihypertensives. Status: Chronic (5) High cholesterol: Problem comment: Continue rosuvastatin. Status: Chronic Plan VTE prophylaxis: Low-dose nightly enoxaparin and SCDs.
--- NOTE | 2023-09-30 22:26 | ED.NURSE ---
witnessed 140 of propofol wasted with alice grace
--- NOTE | 2023-10-01 00:20 | PC.NURSE ---
Patient arrived at 2135 from ED accompanied by her . Patient pleasant, alert and oriented. Reported pain rated 3/10 in right wrist and left leg upon arrival. Numbness to left foot. Stand/Pivot transferred to bedside commode with gait belt and assist of two. VSS.?
[2023-10-01] MEDS: LIDOCAINE 5% PATCH 1 PATCH TRANSDERMA (00:47)
[2023-10-01] MEDS: HYDROmorphone 0.5 mg/0.5 ml inj IVP (00:48)
[2023-10-01] MEDS: OXYCODONE 5 MG TABLET PO ×2 (00:50→08:55)
[2023-10-01] MEDS: SODIUM CHLORIDE 0.9 % (FLUSH) 10 ML SYRINGE 5 ML IVF ×3 (00:50→19:55)
[2023-10-01 02:30] VITALS: BP 121/72; PULSE 67; PULSE 70; RESP 16; RESP 18; O2SAT 95; O2SAT 97
[2023-10-01] MEDS: GABAPENTIN 100 MG CAPSULE 200 MG PO ×2 (08:54→13:32)
[2023-10-01] MEDS: FLUOXETINE HCL 20 MG CAPSULE 40 MG PO (08:54)
[2023-10-01] MEDS: OMEPRAZOLE 20 MG CAPSULE DR 40 MG PO (08:54)
[2023-10-01] MEDS: ROSUVASTATIN CALCIUM 10 MG TABLET PO (08:55)
[2023-10-01] MEDS: TRIAMTERENE-HCTZ 37.5-25 MG TB 1 TAB PO (08:55)
[2023-10-01] MEDS: CALCIUM CARBONATE 500 MG TABLET PO (08:55)
[2023-10-01] MEDS: ACETAMINOPHEN 325 MG TABLET PO ×3 (08:55→19:09)
[2023-10-01] MEDS: lisinopriL 20 MG TABLET 40 MG PO (08:56)
[2023-10-01 09:00] VITALS: BP 113/65; PULSE 82; RESP 16; TEMP 35.5; O2SAT 94; O2SAT 98
--- NOTE | 2023-10-01 09:05 | P.ORCN_ITS ---
History of Present Illness HPI Date Seen: 10/01/23 Consult date: 10/01/23 Requesting physician: Erick Simmons Chief complaint: Fall; possible broken wrist Narrative: Orthopedics consulted on new patient. Pleasant 73-year-old female presents with acute right wrist injury after fall on the outstretched right arm dated 09/30/2023. Patient was unable to get up because of this fall, was discovered by friends, who brought her to the ER. X-rays revealed right wrist fracture, which was improved through reduction under conscious sedation via propofol in the ED. She was splinted with sugar-tong and provided sling. Patient typically uses walker for ambulation assistance due to left lower extremity issues, numbness, and weakness. Does not seem that the weakness is progressive. She started noticing this LLE pain and weakness July 2023. The pain is sharp, intermittent, shooting, and she feels is nerve related. Has disturbed her sleep in the past. However, she had a history of left kidney stone since treated with lithotripsy, which may have been the culprit for her back pain when sleeping. Because of this left lower extremity pain weakness, she uses a walker for assistance and has had approximately 4 falls in the last 1.5 weeks. Three of the falls summoned EMS, this last fall resulted in wrist fracture. She also has a chronic left footdrop, not currently wearing AFO, which she feels has been present for approximately 7 years, diagnosed as idiopathic. She sees primary through [facility], and has seen marketing programs specialist at [place] who have since prescribed her gabapentin and increased her oral steroids. She has a lumbar spine MRI from 09/17/2023 without grossly significant findings to explain the left lower extremity weakness and numbness. Because of these recurrent falls, and now wrist fracture, she was made inpatient due to her fall risk and new problem of right wrist fracture. Of note, she lives with her who has Parkinson's. Also note, on CT, they discovered a left ovarian cyst which women's health feel is not causing her back pain. Patient states that prior to her LLE shooting pain issues, if walking for 15 minutes, she was not experiencing left lower extremity pain, tightness, or calf discomfort. [facility] Medical History Ulcer of esophagus without bleeding ?K22.10 - Ulcer of esophagus without bleeding (ICD-10) Left peroneal nerve palsy ?G57.32 - Lesion of lateral popliteal nerve, left lower limb (ICD-10) Small vessel disease, cerebrovascular ?I67.9 - Cerebrovascular disease, unspecified (ICD-10) Major depressive disorder ?F32.9 - Major depressive disorder, single episode, unspecified (ICD-10) Benign neoplasm of colon ?D12.6 - Benign neoplasm of colon, unspecified (ICD-10) Essential hypertension ?I10 - Essential (primary) hypertension (ICD-10) High cholesterol ?E78.00 - Pure hypercholesterolemia, unspecified (ICD-10) Shingles ?B02.9 - Zoster without complications (ICD-10) Kidney stones ?N20.0 - Calculus of kidney (ICD-10) Surgical History H/O lithotripsy (~2008) ?Z98.890 - Other specified postprocedural states (ICD-10) H/O dilation and curettage ?Z98.890 - Other specified postprocedural states (ICD-10) H/O esophagogastroduodenoscopy ?Z98.890 - Other specified postprocedural states (ICD-10) H/O colonoscopy ?Z98.890 - Other specified postprocedural states (ICD-10) History of cholecystectomy ?Z90.49 - Acquired absence of other specified parts of digestive tract (ICD- 10) Previous section (1981) ?Z98.891 - History of uterine scar from previous surgery (ICD-10) History of medial meniscus repair of left knee (12/08/06) ?Z98.890 - Other specified postprocedural states (ICD-10) 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) ?Z96.651 - Presence of right artificial knee joint (ICD-10) Status post left knee replacement (12/30/21) ?Z96.652 - Presence of left artificial knee joint (ICD-10) Family History Mother Breast cancer Stroke Father Diabetes Cardiovascular disease Sister Osteoporosis Maternal Grandfather Alzheimers disease Brother Stroke Social History Narrative: Lives independently with in a handicap accessible house. Lifelong nonsmoker. 1-2 glasses of wine per week. FULL CODE. What is your current living situation?: I presently have a place to live Problems where you live: no known problems Problems where you live details: n/a In the past 12 months, utilities in danger of being shut off: no In past 12 months, lack of transportation kept you from medical appts, meetings, work, or getting things needed for daily living: no In the past 12 mos, have been you worried that your food would run out before you had money to buy more?: never true In the past 12 mos, the food you bought just didn't last and you didn't have money to buy more?: never true Highest level of school completed/degree received: Doctoral degree Smoking Status: Never smoker Do you use any of these nicotine containing products: None Second hand tobacco smoke exposure: No How often do you have a drink containing alcohol: 2-4 times a month How often do you have six or more drinks on one occasion: Never AUDIT-C Alcohol total score: 2 Non-prescribed substance use: denies use Caffeine: Yes (coffee) How often does anyone, including family, friends and others, physically hurt you : never How often does anyone, including family, friends and others, insult or talk down to you: never How often does anyone, including family, friends and others, threaten you with harm: never How often does anyone, including family, friends and others, scream or curse at you: never service: No Meds Home Medications and Allergies Home Medications Medication Instructions Recorded Confirmed Type cholecalciferol (vitamin D3) 25 25 mcg PO DAILY 06/14/22 09/30/23 History mcg (1,000 unit) tablet lisinopril 40 mg tablet 40 mg PO QDAY 06/14/22 09/30/23 History rosuvastatin 10 mg tablet 10 mg PO DAILY 06/14/22 09/30/23 History triamterene 37.5 1 tab PO DAILY 06/14/22 09/30/23 History mg-hydrochlorothiazide 25 mg tablet omeprazole 40 mg capsule,delayed 40 mg PO DAILY 09/17/23 09/30/23 History release fluoxetine 40 mg capsule 40 mg PO DAILY 09/22/23 09/30/23 History acetaminophen 500 mg tablet 500 - 1,000 mg PO Q6H PRN 09/30/23 09/30/23 History gabapentin 100 mg capsule See Rx Instructions PO .COMPLEX 09/30/23 09/30/23 History prednisone 10 mg tablet 10 mg PO .UD 10/01/23 10/01/23 History Allergies Allergy/AdvReac Type Severity Reaction Status Date / Time shellfish derived AdvReac Verified 09/22/23 13:23 Ortho Exam Narrative Exam Narrative: General: Well-developed, well-nourished, A&Ox 3, no apparent acute distress. Pulmonary: Breathing pattern regular, even, without apparent distress or audible wheeze present. Right Wrist/upper extremity: Sling in place Sugar-tong splint in place, which extends distal to the MCP joints both palmar and dorsal Digits mildly swelling, no ecchymosis or erythema Able to freely move her digits with some mild discomfort [place], warm, appropriate capillary refill digits; intact dermatomes and myotomes distally (radial, ulnar, and median nerve distributions) Lower Extremity Spine/Neuro: Of note, much of the exam was obtained sitting in her chair No obvious leg muscle atrophy compared to contralateral TTP anterior mid perales, adipose region; non-tender bone. Patellar reflex: 1/4+ Achilles reflex: 1/4+ Lower extremity clonus negative Straight leg raise: no increased radicular pain, or numbness Full, unimpaired hip ROM, no groin pain No saddle anesthesia, or bowel/bladder incontinence 4/5 strength hip flexion; 5/5 strength hip adduction 4-/5 strength knee extension; 4-/5 strength ankle dorsiflexion 4/5 strength toe dorsiflexion; unable to assess hip extension strength, 5/5 strength hip abduction strength 5/5 strength foot plantar flexion 5/5 strength toe plantar flexion 1+ DP/PT pulses. Distal digits are pink and warm with appropriate capillary refill; mildly decreased sensation L4, L5 distribution Const Vital Signs, click to edit/add: Vital Signs - 24 hr 09/30/23 18:22 09/30/23 19:58 09/30/23 20:25 Temperature 98.5 F Pulse Rate [Pulse Oximeter] Pulse Rate [Right Pulse Oximeter] 82 64 Respiratory Rate 18 16 Blood Pressure [Left Arm] Blood Pressure [Right Upper Arm] 154/68 H 140/78 H Pulse Oximetry 97 99 96 Oxygen Delivery Method Room Air Nasal Cannula Oxygen Flow Rate 4 09/30/23 20:30 09/30/23 20:35 09/30/23 20:40 Temperature Pulse Rate [Pulse Oximeter] Pulse Rate [Right Pulse Oximeter] 67 69 62 Respiratory Rate 16 16 16 Blood Pressure [Left Arm] Blood Pressure [Right Upper Arm] 124/90 H 145/98 H 150/86 H Pulse Oximetry 89 99 99 Oxygen Delivery Method Oxygen Flow Rate 09/30/23 20:45 09/30/23 21:34 09/30/23 23:50 Temperature 98.3 F 98.1 F Pulse Rate [Pulse Oximeter] 68 67 Pulse Rate [Right Pulse Oximeter] 66 Respiratory Rate 16 20 18 Blood Pressure [Left Arm] 160/81 H 129/70 Blood Pressure [Right Upper Arm] 151/95 H Pulse Oximetry 99 97 97 Oxygen Delivery Method Room Air Room Air Oxygen Flow Rate 10/01/23 02:30 10/01/23 02:30 10/01/23 02:30 Temperature Pulse Rate [Pulse Oximeter] 67 70 Pulse Rate [Right Pulse Oximeter] Respiratory Rate 18 18 16 Blood Pressure [Left Arm] 121/72 Blood Pressure [Right Upper Arm] Pulse Oximetry 97 95 Oxygen Delivery Method Room Air Room Air Oxygen Flow Rate Results Labs Labs: Laboratory Results - last 48 hr 09/30/23 21:05 SARS-CoV-2 (PCR) Negative SARS-CoV-2 Influenza Type A (PCR) Negative PCR FLU A Influenza Type B (PCR) Negative PCR FLU B RSV (PCR) Negative PCR RSV Diagnostic results Wrist/Hand x-ray: report reviewed and image reviewed Lumbar MRI with/without contrast: report reviewed and image reviewed Additional Comments: Three views right wrist ordered by different provider [facility] dated 09/30/2023. These images were reviewed and corroborated with the radiology report showing right wrist he metaphyseal fracture, displaced, dorsally angulated. Dorsal angulation is difficult to completely measure on inadequate lateral view, but measures approximately 22?. There is radial translation of the distal radius metaphysis of approximately 6.5 mm. No obvious increased widening at the DRUJ. Fracture is ulnar neutral. No obvious ulnar styloid fracture. Noted possible triquetral avulsion fracture with segment of dorsal radiolucency. Two views right wrist ordered by different provider [facility] dated 09/30/2023; these are post right wrist reduction images. These images were reviewed and corroborated with the radiology report showing improved alignment of the metaphyseal distal radius fracture, improved length now ulnar negative, with appropriate radial inclination. Distal radius metaphyseal translation radially approximately 3 mm. Improved alignment on lateral view with improved dorsal angulation. Now there is noted dorsal translation of the distal radius fracture fragment approximately 5-6 mm. The dorsal distal radius column this not aligned with the dorsal distal radius diaphysis. Still questionable radiolucency dorsal triquetral relief region, possible nondisplaced ulnar styloid fracture with a mild transverse radiolucency seen on PA view. Noncontrast MRI lumbar spine ordered by different provider [facility] dated 09/17/2023. These images were reviewed and corroborated with the radiology report showing: * T12-L1: Mild diffuse disc bulge, no neural foraminal or spinal canal stenosis * L1-L2: Diffuse disc bulge, left asymmetric facet arthropathy; mild bilateral neural foraminal narrowing; no spinal canal stenosis * L2-L3: Mild diffuse disc bulge, mild facet arthropathy fall; no significant neural foraminal or spinal canal stenosis * L3-L4: Mild diffuse disc bulge, mild facet arthropathy; no significant neural foraminal or spinal canal stenosis * L4-L5: Moderate facet arthropathy; no significant neural foraminal or spinal canal stenosis * L5-S1: Moderate facet arthropathy/ankylosis; no significant neural foraminal or spinal canal stenosis * Exaggerated lumbar lordosis with multilevel straight degenerative spondylolisthesis Assessment and Plan Assessment and plan (1) Fracture of wrist: Problem comment: - reduced in the emergency department and casted. - I have increased her gabapentin and have ordered oxycodone for pain. I have also ordered p.r.n. IV hydromorphone for breakthrough pain and continuous pulse oximeter. - disposition will be an issue since she is unable to use her walker with a broken wrist. She will likely need rehab. Would recommend platform walker. Await PT and OT evaluations tomorrow. Status: Acute Total time spent: Total time spent is greater than 50% in coordination of care (as documented) at patient's floor/unit and/or counseling patient: (2) Osteoporosis: Problem comment: Bones appear osteoporotic on x-ray of wrist. Patient is already on vitamin D. Will add calcium. Status: Suspected Total time spent: Total time spent is greater than 50% in coordination of care (as documented) at patient's floor/unit and/or counseling patient: (3) Acute lumbar radiculopathy: Problem comment: - increase gabapentin, as this was helpful. Add lidocaine patch. PT and OT evaluations. She [facility] has [facility]. I am not finding any thing to suggest a need for urgent neurosurgery consult. This appears more acute on chronic. Scheduled EMG/NCS [facility] 10/15/2022 Status: Acute Total time spent: Total time spent is greater than 50% in coordination of care (as documented) at patient's floor/unit and/or counseling patient: (4) Essential hypertension: Problem comment: Continue home antihypertensives. Status: Chronic Total time spent: Total time spent is greater than 50% in coordination of care (as documented) at patient's floor/unit and/or counseling patient: (5) High cholesterol: Problem comment: Continue rosuvastatin. Status: Chronic Total time spent: Total time spent is greater than 50% in coordination of care (as documented) at patient's floor/unit and/or counseling patient: Plan We had a thorough discussion regarding pathologies: Regarding the right wrist fracture: Continue splint for immobilization, sling for comfort, encouraged motion of her digits and elevation. Tylenol should be sufficient for pain. Explained the fracture pattern and post reduction images. While the fracture is in reasonable position, as this is her dominant arm, and lack of congruent dorsal column is present, she may require CRPP of the right wrist. We can decide this further after her orthopedic follow-up in approximately 10 days. At that point, we can remove the splint, acquire three views of the right wrist, and discuss further if non operative management can continue or if CRPP should be entertained. Would not advise any weight-bearing through this right wrist. Because of her need to use a walker as a result of LLE weakness, will speak with physical therapy to consider platform walker allowing patient to place weight through the elbow and mid-proximal forearm with weight-bearing. Either med/surg can call for patient next week to help set up an appointment with orthopedics regarding the right wrist, or she can call on her own. Regarding the left lower extremity: This appears to be more of an acute on chronic issue. There appears to be an obvious correlation between this left lower extremity weakness and pain and her frequent falls. She appears to have both dermatomes and myotomes impact regarding the L2, L3, L4, L5 distributions. Her lumbar spine MRI does not objectively support these clinical/exam findings. We understand that she has a chronic peroneal nerve palsy resulting and left footdrop. This has been present for the past at least 7 years per patient, and she no longer wears an AFO brace; she is not sure why she stopped wearing this AFO brace. Ultimately, this issue should be addressed in the outpatient setting, but because of her frequent falls, she presents as quite a fall risk especially now with this right wrist fracture. Likely a combination of L2-L5 radicular issues and peroneal nerve palsy are causing these falls. Would recommend continuing gabapentin, as she feels this is the most beneficial for pain. In discussion with hospitalist, we agree that discontinuing the oral steroids is a prudent option. If there is discomfort, we may consider naproxen for discomfort in addition to acetaminophen. She may benefit from an epidural steroid injection, as both a therapeutic and diagnostic treatment modality. Dr. Simmons will speak with Dr. Chu to see if this can be entertained early next week prior to discharge. If not, this could be ordered as an outpatient proced ure. She should see one of the non operative spine specialists at our orthopedic clinic. She is encouraged to call our orthopedic clinic to schedule this possibly for next week. I am not sure of their schedule at this time. Lastly, we discussed using a knee immobilizer to help with the give out issues that result in her falls. After further discussion, this is likely not the best treatment option due to her left footdrop. With the knee immobilizer in place, she has less knee flexion, thus losing the compensatory mechanism for her foot drop, and thus increasing fall risk. This could be an option if she were to wear a low-profile AFO brace in addition to the knee immobilizer. She is not too keen on this combination. Ultimately, patient should follow-up with our non op spine specialists at [facility] as well as our orthopedic clinic regarding her right wrist fracture. These will be separate appointments. Encouraged her to keep her October 15 EMG/NCS at [facility]. Thank you for allowing me to participate in the patient's care.
[2023-10-01] MEDS: SENNOSIDES/DOCUSATE TABLET 1 TAB PO (09:06)
--- NOTE | 2023-10-01 11:09 | PC.NURSE ---
Addendum entered by Giana Marroquin RN 10/01/23 13:15: BP at 1230 108/80. Dr. Simmons aware of pts recent history of dizziness. states she needs Neurontin and may reduce Lisinopril dose. Original Note: alert and oriented. vs wnl. note bp 113/64 . gave lisinopril 20mg instead of 40mg. will recheck bp this afternoon. ls clear. heart reg. good cms rue. rue in sling and elevated on a pillow. poss pulses. due to LLE weakness pivot pt from bed to comode to chair with asst 2 and belt. pt did well. pain controlled with oxycontin 5mg this am. stacey po. good bs. had bm this am. voided 200cc this am. family here and attentive. seen by PT/OT for devices and discharge planning.
[2023-10-01 12:40] VITALS: BP 108/80; PULSE 72; RESP 16; TEMP 36.1; O2SAT 96
[2023-10-01 15:00] VITALS: BP 96/70; PULSE 77; RESP 22; TEMP 37.1; O2SAT 97
--- NOTE | 2023-10-01 18:53 | P.IMPN_ITS ---
Progress Note: A&P Assessment and plan (1) Acute lumbar radiculopathy: Problem details: Despite relative normal MRI findings I suspect this is a radiculopathy from the lumbar spine. Recommend spine surgery consultation. Also recommend physical therapy. Oxycodone has not been helpful. She is concerned gabapentin is making her dizzy so will continue this because it has been helpful but also making her dizzy Status: Acute (2) Fracture of wrist: Problem details: - reduced in the emergency department and casted. - I have increased her gabapentin and have ordered oxycodone for pain. I have also ordered p.r.n. IV hydromorphone for breakthrough pain and continuous pulse oximeter. - disposition will be an issue since she is unable to use her walker with a broken wrist. She will likely need rehab. Would recommend platform walker. Await PT and OT evaluations tomorrow. Status: Acute (3) Essential hypertension: Problem details: Continue home antihypertensives. Status: Chronic (4) Cyst of left ovary: Problem details: Pending outpatient evaluation and management. 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 Status: Acute Plan Continue in hospital for further evaluation of mobility. Goal is to return home with her . Will need to assess her mobility given her left arm fracture is now making walking with a walker much more difficult. Family is hoping that she can use a wheelchair but to do this she would still need to be able to transfer from bed to chair and chair to chair. I spoke with the family today about a plan of care. Total time spent is 55 minutes, 40 minutes in coordination of care and discussing with patient and family ongoing evaluation management of left lower extremity pain and weakness, right distal radius fracture and associated disabilities. Subjective Date Seen: 10/01/23 Interval history: 73-year-old female admitted to the hospital after a fall at home causing a right distal radius fracture. This was partially reduced and splinted in the emerge ncy department. She is admitted to the hospital due to inability to care for herself in the context of her fracture and other medical problems. Since July of this year patient has been having pain weakness and numbness going down her left leg. It starts in her low back and radiates down the anterior thigh towards the top of her foot. The pain is been severe. She has gotten some relief from gabapentin. She received Medrol Dosepak for presumed lumbar radiculopathy but this was of no significant benefit. In August and September she had CT scan which showed that she had a large left-sided kidney stone and a large ovarian cyst. There is some question as to whether these were causing her problems. I urologist in [place] treated her kidney stone and subsequently removed the stent in her ureter. This did not help her back pain. She is pending further evaluation treatment of her ovarian cyst. She had an MRI of her lumbar spine which did not show marked radiculopathy or spinal stenosis or other degenerative changes to account for her pain and disability. She has had weakness in her left leg and over the past couple weeks. She has been walking with a walker and has had 4 episodes of falling at home. With the last episode yesterday she fractured her distal radius. No other serious injuries. She has not yet had physical therapy for her back. Today she was evaluated by therapy but it did not go well with a platform walker. She felt dizzy and struggled to walk. She lives at home with her who has been providing most of the cares at home with her disability. She has been walking with a walker. They have a wheelchair at home as well. She has not yet been able to stand and transfer bed to chair or chair to chair yet today. She is hoping to return home with her though is concerned that this may be too hard for him to manage. Her left leg has a longstanding history of a footdrop presumably due to a perineal nerve injury in the remote past. Exam Narrative: Exam Narrative: She is alert and in no distress. She gives her own history. Corroborated by family who are present. Back is unremarkable on inspection. She has some edema of the fingers of the right hand but intact pulses and good capillary refill and sensation. Right form is in a splint. Back is unremarkable on inspection. Lower extremity strength testing shows 5/5 strength on the right with hip flexion, knee flexion and extension, ankle dorsiflexion and plantar flexion. On the left side she has 4/5 hip flexion, 4/5 knee extension, 5/5 knee flexion, 4/5 ankle dorsiflexion and 5/5 ankle plantar flexion. Intact pulses. No pain with palpation or range of motion or strength testing on the left Const: Vital Signs, click to edit/add: Vital Signs - 24 hr 09/30/23 19:58 09/30/23 20:25 09/30/23 20:30 Temperature Pulse Rate [Pulse Oximeter] Pulse Rate [Right Pulse Oximeter] 64 67 Respiratory Rate 16 16 Blood Pressure [Le ft Arm] Blood Pressure [Ri ght Upper Arm] 140/78 H 124/90 H Pulse Oximetry 99 96 89 Oxygen Delivery Me thod Nasal Cannula Oxygen Flow Rate 4 09/30/23 20:35 09/30/23 20:40 09/30/23 20:45 Temperature Pulse Rate [Pulse Oximeter] Pulse Rate [Right Pulse Oximeter] 69 62 66 Respiratory Rate 16 16 16 Blood Pressure [Le ft Arm] Blood Pressure [Ri ght Upper Arm] 145/98 H 150/86 H 151/95 H Pulse Oximetry 99 99 99 Oxygen Delivery Me thod Oxygen Flow Rate 09/30/23 21:34 09/30/23 23:50 10/01/23 02:30 Temperature 98.3 F 98.1 F Pulse Rate [Pulse Oximeter] 68 67 67 Pulse Rate [Right Pulse Oximeter] Respiratory Rate 20 18 18 Blood Pressure [Le ft Arm] 160/81 H 129/70 Blood Pressure [Ri ght Upper Arm] Pulse Oximetry 97 97 Oxygen Delivery Me thod Room Air Room Air Oxygen Flow Rate 10/01/23 02:30 10/01/23 02:30 10/01/23 09:00 Temperature Pulse Rate [Pulse Oximeter] 70 Pulse Rate [Right Pulse Oximeter] Respiratory Rate 18 16 Blood Pressure [Le ft Arm] 121/72 Blood Pressure [Ri ght Upper Arm] Pulse Oximetry 97 95 98 Oxygen Delivery Me thod Room Air Room Air Room Air Oxygen Flow Rate 10/01/23 09:00 10/01/23 12:40 10/01/23 15:00 Temperature 96 F L 97 F L Pulse Rate [Pulse Oximeter] 82 72 Pulse Rate [Right Pulse Oximeter] Respiratory Rate 16 16 Blood Pressure [Le ft Arm] 113/65 108/80 Blood Pressure [Ri ght Upper Arm] Pulse Oximetry 94 96 97 Oxygen Delivery Me thod Room Air Room Air Room Air Oxygen Flow Rate 10/01/23 15:00 Temperature 98.8 F Pulse Rate [Pulse Oximeter] 77 Pulse Rate [Right Pulse Oximeter] Respiratory Rate 22 Blood Pressure [Le ft Arm] 96/70 Blood Pressure [Ri ght Upper Arm] Pulse Oximetry 97 Oxygen Delivery Me thod Room Air Oxygen Flow Rate Documenting provider has reviewed patient's vital signs: yes Labs Labs: Laboratory Results - last 24 hr 09/30/23 21:05 SARS-CoV-2 (PCR) Negative SARS-CoV-2 Influenza Type A (PCR) Negative PCR FLU A Influenza Type B (PCR) Negative PCR FLU B RSV (PCR) Negative PCR RSV
[2023-10-01 19:00] VITALS: BP 107/68; PULSE 80; RESP 20; TEMP 37.1; O2SAT 95
[2023-10-01] MEDS: ENOXAPARIN 40 MG/0.4 ML INJ SUBCUT (19:54)
[2023-10-01] MEDS: GABAPENTIN 300 MG CAPSULE 600 MG PO (19:54)
[2023-10-01] MEDS: LOPERAMIDE HCL 2 MG CAPSULE PO (19:54)
--- NOTE | 2023-10-01 22:56 | PC.NURSE ---
End of shift report [id number]: Patient alert and oriented x 4. Pain to right hand and left knee reported, managed with prn tylenol and scheduled gabapentin. Transferred well with minimal assist x 1 and pivot transfer. Denies any dizziness or lightheadedness.
[2023-10-02] VITALS (8 sets, daily range): BP systolic 116–159; BP diastolic 69–88; PULSE 70–86; RESP 16–20; TEMP 36.3–37.3; O2SAT 92–97
[2023-10-02] MEDS: OXYCODONE 5 MG TABLET PO ×3 (00:28→20:21)
[2023-10-02] MEDS: LIDOCAINE 5% PATCH 1 PATCH TRANSDERMA (00:29)
[2023-10-02] MEDS: ACETAMINOPHEN 325 MG TABLET PO ×3 (04:25→19:19)
[2023-10-02] MEDS: GABAPENTIN 100 MG CAPSULE 200 MG PO ×2 (07:48→11:50)
[2023-10-02] MEDS: OMEPRAZOLE 20 MG CAPSULE DR 40 MG PO (09:39)
[2023-10-02] MEDS: CALCIUM CARBONATE 500 MG TABLET PO (09:40)
[2023-10-02] MEDS: FLUOXETINE HCL 20 MG CAPSULE 40 MG PO (09:40)
[2023-10-02] MEDS: ROSUVASTATIN CALCIUM 10 MG TABLET PO (09:40)
[2023-10-02] MEDS: SODIUM CHLORIDE 0.9 % (FLUSH) 10 ML SYRINGE 5 ML IVF ×2 (09:40→20:16)
--- NOTE | 2023-10-02 13:43 | P.IMPN_ITS ---
Progress Note: A&P Assessment and plan (1) Acute lumbar radiculopathy: Problem details: Approximately 2 months of weakness in left hip flexion and knee extension associated with back pain radiating down the anterior left leg to the foot. Despite relative normal MRI findings I suspect this is a radiculopathy from the lumbar spine. Recommend spine surgery consultation. Also recommend physical therapy. Oxycodone has not been helpful. She is concerned gabapentin is making her dizzy so will continue this because it has been helpful but use cautiously because it is also making her dizzy. Status: Acute (2) Fracture of wrist: Problem details: - reduced in the emergency department and splinted. Mobility is much improved today. Goal is to discharge to home with the support of her family and outpatient nursing and therapy as well as needed durable medical equipment. Status: Acute (3) Essential hypertension: Problem details: Continue home antihypertensives. Status: Chronic (4) Cyst of left ovary: Problem details: Pending outpatient evaluation and management. I doubt this is causing her left lower extremity symptoms Status: Inactive (5) Neuropathy of left lower extremity: Problem details: Chronic peroneal nerve injury with footdrop. Status: Inactive Plan Continue in hospital pending arrangement of services and support at home so she can be safely discharged there, probably tomorrow Time Spent With Patient Total time spent: Total time spent today is 40 minutes, 30 minutes in coordination of care discussing with patient and family and other providers ongoing management of her disabilities Subjective Date Seen: 10/02/23 Interval history: 73-year-old female admitted to the hospital after a fall at home causing a right distal radius fracture. This was partially reduced and splinted in the emergency department. She is admitted to the hospital due to inability to care for herself in the context of her fracture and other medical problems. Since July of this year patient has been having pain weakness and numbness going down her left leg. It starts in her low back and radiates down the anterior thigh towards the top of her foot. The pain is been severe. She has gotten some relief from gabapentin. She received Medrol Dosepak for presumed lumbar radiculopathy but this was of no significant benefit. In August and September she had CT scan which showed that she had a large left-sided kidney stone and a large ovarian cyst. There is some question as to whether these were causing her problems. I urologist in [place] treated her kidney stone and subsequently removed the stent in her ureter. This did not help her back pain. She is pending further evaluation treatment of her ovarian cyst. She had an MRI of her lumbar spine which did not show marked radiculopathy or spinal stenosis or other degenerative changes to account for her pain and disability. She has had weakness in her left leg and over the past couple weeks. She has been walking with a walker and has had 4 episodes of falling at home. With the last episode yesterday she fractured her distal radius. No other serious injuries. She has not yet had physical therapy for her back. Today she was evaluated by therapy but it did not go well with a platform walker. She felt dizzy and struggled to walk. She lives at home with her who has been providing most of the cares at home with her disability. She has been walking with a walker. They have a wheelchair at home as well. She has not yet been able to stand and transfer bed to chair or chair to chair yet today. She is hoping to return home with her though is concerned that this may be too hard for him to manage. Her left leg has a longstanding history of a footdrop presumably due to a perineal nerve injury in the remote past. Today patient did much better with therapy. She was able to walk 30 ft with a platform walker. She was able to transfer bed to chair and chair to chair with standby assist. She notes severe anxiety associated with transfers and concern about falling. Left leg continues to be quite weak. She has no other concerns today. Exam Narrative: Exam Narrative: She is alert pleasant in no distress. Respirations are clear to auscultation. Cardiovascular: S1, S2, regular rate and rhythm. Abdomen is soft without tenderness or mass right upper extremity still has edema of the fingers but intact sensation and good capillary refill. Examination of her lower extremities show similar findings to yesterday with strength testing 4/5 in the left hip flexion, 4-/5 in knee extension, 4+ /5 in ankle dorsiflexion. The rest of the muscle groups on the left are normal 5/5 and the right side is 5/5 in hip flexion, knee flexion and extension, ankle dorsiflexion and plantar flexion. Const: Vital Signs, click to edit/add: Vital Signs - 24 hr 10/01/23 15:00 10/01/23 15:00 10/01/23 19:00 Temperature 98.8 F 98.8 F Pulse Rate [Pulse Oximeter] 77 80 Respiratory Rate 22 20 Blood Pressure [Le ft Arm] 96/70 107/68 Pulse Oximetry 97 97 95 Oxygen Delivery Me thod Room Air Room Air Room Air 10/02/23 00:15 10/02/23 00:15 10/02/23 00:15 Temperature 97.8 F Pulse Rate [Pulse Oximeter] 77 77 Respiratory Rate 18 18 18 Blood Pressure [Le ft Arm] 116/73 Pulse Oximetry 96 96 Oxygen Delivery Me thod Room Air Room Air 10/02/23 03:00 10/02/23 07:00 10/02/23 07:00 Temperature 97.5 F L Pulse Rate [Pulse Oximeter] 77 79 Respiratory Rate 18 16 16 Blood Pressure [Le ft Arm] 126/75 Pulse Oximetry 93 95 Oxygen Delivery Me thod Room Air Room Air 10/02/23 07:00 10/02/23 09:00 10/02/23 11:00 Temperature 97.9 F 97.3 F L Pulse Rate [Pulse Oximeter] 79 83 Respiratory Rate 16 16 Blood Pressure [Le ft Arm] 159/88 H 134/83 Pulse Oximetry 95 95 92 Oxygen Delivery Me thod Room Air Room Air Documenting provider has reviewed patient's vital signs: yes
--- NOTE | 2023-10-02 15:34 | PC.NURSE ---
Shift Note: Pt cooperative with cares, needs reassurance with transfers. Does well with assist x1 to BSC. Pain well controlled and pt diligent about elevation. Fingers swollen, but warm to touch with good cap refill. VS WNL and LS COA. She is hoping to shower tomorrow and discharge to home.
[2023-10-02] MEDS: GABAPENTIN 300 MG CAPSULE 600 MG PO (20:15)
[2023-10-02] MEDS: ENOXAPARIN 40 MG/0.4 ML INJ SUBCUT (20:16)
--- NOTE | 2023-10-02 22:51 | PC.NURSE ---
End of shift report: Alert and oriented x 4. Pain to left hip and left leg reported, pain managed with scheduled and PRN medications. Transferred with min assist of 1-2, ambulated with splinted walker with gait belt and SBA. Patient was able to ambulate into bathroom to void. CMS intact to right hand, non pitting edema to fingers, patient continues to elevate extremity on pillows.
[2023-10-03 03:00] VITALS: PULSE 68; RESP 18; O2SAT 96
[2023-10-03] MEDS: LIDOCAINE 5% PATCH 1 PATCH TRANSDERMA (04:43)
[2023-10-03] MEDS: OXYCODONE 5 MG TABLET PO (04:43)
--- NOTE | 2023-10-03 06:09 | PC.NURSE ---
Shift note: Injured upper right extremity is warm, pulse present. [place] 5-7/10 treated per eMAR with relief. Pt ambulates with assist of 1/SBA and walker.
[2023-10-03 07:00] VITALS: BP 148/85; PULSE 77; RESP 16; TEMP 36.7; O2SAT 95; O2SAT 96
[2023-10-03] MEDS: ROSUVASTATIN CALCIUM 10 MG TABLET PO (08:12)
[2023-10-03] MEDS: OMEPRAZOLE 20 MG CAPSULE DR 40 MG PO (08:12)
[2023-10-03] MEDS: CALCIUM CARBONATE 500 MG TABLET PO (08:13)
[2023-10-03] MEDS: FLUOXETINE HCL 20 MG CAPSULE 40 MG PO (08:13)
[2023-10-03 09:00] VITALS: O2SAT 95
--- NOTE | 2023-10-03 11:30 | PC.SOCIAL ---
Addendum entered by ROXANNE Stuart 10/04/23 10:13: Discharge planning: [facility] will also open pt for OT and TAX INTERN. Face to Face sheet was sent over to [facility]. Pt has assistance at home from , as well. Pt and were pleased that [facility] can open pt for PT tomorrow. Social work to follow-up as needed. Addendum entered by ROXANNE Stuart 10/03/23 12:58: Discharge planning: [facility] will open pt tomorrow for PT. Social work to follow-up as needed. Original Note: Discharge planning: Met with pt and to discuss discharge planning. Waiting to hear back from [facility] about openings next week. [facility] may have potential openings next week and asked for a referral to be sent over. Social work to follow-up as needed.
[2023-10-03] MEDS: GABAPENTIN 100 MG CAPSULE 200 MG PO (12:49)
[2023-10-03] MEDS: ACETAMINOPHEN 325 MG TABLET PO (12:49)
--- NOTE | 2023-10-03 14:13 | PC.NURSE ---
Patient discharged home self care accompanied by her , Conrado. Patient transferred Ax1 with platform walker and escorted out via W/C. Patient A&O, afebrile & VSS at time of discharge. Pain adequately controlled with PRN Tylenol, PRN oxycodone and scheduled gabapentin. Discharge instructions and education reviewed with patient and her who both verbalized understanding.
--- NOTE | 2023-10-03 14:51 | P.DS_ITS ---
DS: Providers Provider Date Seen: 10/03/23 Date of admission: 09/30/23 20:45 Primary care physician: Wandy Sterling MD Admitting Clinician: Erum Urias MD Attending Physician on discharge: Dimitri Simmons MD Date of Discharge: 10/03/23 DS: Diagnosis Discharge Diagnosis (1) Acute lumbar radiculopathy: Status: Acute Problem details: Approximately 2 months of weakness in left hip flexion and knee extension associated with back pain radiating down the anterior left leg to the foot. Despite relative normal MRI findings I suspect this is a radiculopathy from the lumbar spine. Recommend spine surgery consultation. Also recommend physical therapy. Oxycodone has not been helpful. She is concerned gabapentin is making her dizzy so will continue this because it has been helpful but use cautiously because it is also making her dizzy. (2) Fracture of wrist: Status: Acute Problem details: - reduced in the emergency department and splinted. Mobility is much improved today. Goal is to discharge to home with the support of her family and outpatient nursing and therapy as well as needed durable medical equipment. Follow-up with orthopedics in the next week for management of the distal radius fracture (3) Essential hypertension: Status: Chronic Problem details: Continue home antihypertensives. (4) Cyst of left ovary: Status: Inactive Problem details: Pending outpatient evaluation and management. I doubt this is causing her left lower extremity symptoms (5) Neuropathy of left lower extremity: Status: Inactive Problem details: Chronic peroneal nerve injury with footdrop. DS: Summary Hospital Course Hospital Course: 73-year-old female admitted to the hospital after a fall at home. With the fall she sustained a distal radius fracture. This was partially reduced in the emergency department and she was splinted. She is admitted to the hospital because she was unable to manage at home due to multiple disabilities. Her disabilities include her right wrist fracture impairing her ability to walk with a walker, her normal means of mobility. She also has weakness in her hip flexors and knee extensors on the left causing her leg to give way and making her prone to fall. She thinks this contributed to this current fall and wrist fracture. This left leg week miss has been associated with pain coming from her back radiating down her anterior left thigh to her foot. She did have an MRI of her lumbar spine which was relatively unremarkable prior to admission. She also has a chronic left footdrop which is mild longstanding. She is not using an AFO. During her hospital stay she had evaluation and treatment with physical therapy as well as Ermias Regan from the orthopedic clinic. With this she was able to transfer chair to chair and bed to chair and walk with a platform walker. With this she is discharged to home for outpatient follow-up Status at Discharge Functional status at discharge: uses cane/walker Overall status at discharge: patient is progressing back to baseline Time Spent with Patient Time attestation: Total time spent providing and/or coordinating discharge services: 35 minutes Time spent: Greater than 30 minutes Exam Narrative: Exam Narrative: She is alert and appears in no distress. Still has mild swelling of the fingers of the right hand with intact sensation and pulses. Moved well with standby assistance of therapy. Const: Vital Signs, click to edit/add: Vital Signs - 24 hr 10/02/23 15:00 10/02/23 15:00 10/02/23 19:00 Temperature 99.1 F 98.8 F Pulse Rate [Pulse Oximeter] 70 86 Respiratory Rate 20 20 18 Blood Pressure [Le ft Arm] 124/72 125/78 Pulse Oximetry 96 96 97 Oxygen Delivery Me thod Room Air Room Air Room Air 10/02/23 23:00 10/02/23 23:00 10/02/23 23:00 Temperature 98.6 F Pulse Rate [Pulse Oximeter] 71 71 Respiratory Rate 18 18 18 Blood Pressure [Le ft Arm] 135/69 Pulse Oximetry 96 96 Oxygen Delivery Me thod Room Air Room Air 10/03/23 03:00 10/03/23 07:00 10/03/23 07:00 Temperature 98.1 F Pulse Rate [Pulse Oximeter] 68 77 Respiratory Rate 18 16 16 Blood Pressure [Le ft Arm] 148/85 H Pulse Oximetry 96 96 95 Oxygen Delivery Me thod Room Air Room Air Room Air 10/03/23 09:00 Temperature Pulse Rate [Pulse Oximeter] Respiratory Rate Blood Pressure [Le ft Arm] Pulse Oximetry 95 Oxygen Delivery Me thod Documenting provider has reviewed patient's vital signs: yes Discharge Plan Discharge Disposition: Home w/ Parent or Adult Date of Admission: 09/30/23 20:45 Attending Provider on Discharge: Erick Simmons Consulting Providers: Ermias Regan Primary Care Provider: Wandy Sterling Condition: Improved Anticipated Discharge Date/Time: 10/03/23 11:05 Discharge Medications: New calcium carbonate [Oyster Shell Calcium 500] 500 mg calcium (1,250 mg) Tablet 500 mg PO BID Qty: 60 0RF oxycodone 5 mg tablet 5 mg PO Q4H PRN (Reason: pain) Qty: 30 0RF sennosides-docusate sodium [Stool Softener-Laxative] 8.6-50 mg Tablet 1 tab PO BID PRNQty: 30 0RF Continued cholecalciferol (vitamin D3) 25 mcg (1,000 unit) tablet 25 mcg PO DAILY rosuvastatin 10 mg tablet 10 mg PO DAILY triamterene-hydrochlorothiazid 37.5-25 mg tablet 1 tab PO DAILY lisinopril 40 mg tablet 40 mg PO QDAY fluoxetine 40 mg capsule 40 mg PO DAILY omeprazole 40 mg capsule,delayed release(DR/EC) 40 mg PO DAILY gabapentin 100 mg capsule See Rx Instructions PO .COMPLEX Patient Comments: 200 mg TIDWM, 300 mg HS Rx Instructions: orally; acetaminophen 500 mg tablet 500 - 1,000 mg PO Q6H PRN Discontinued prednisone 10 mg tablet 10 mg PO .UD Rx Instructions: TAKE ACCORDING TO TAPER Discharge Orders: Discharge Order (Routine); Ordered 10/03/23 Ordered By: Erick Simmons Patient Education: Oxycodone, Rapid Release (By mouth), Calcium Supplement (By mouth), Senna (By mouth), Wrist Fracture in Adults (DC), Fall Prevention (DC), Closed Reduction (GEN) Additional Instructions: See Ermias Regan at the orthopedic clinic in the next week regarding your wrist fracture. Keep your other appointments for EMG/nerve testing. Activity Level: Activity as Tolerated and Use Walker Discharge Diet: Regular Follow Up Appointments: Wandy Sterling MD [Primary Care Provider] - 10/19/23 9:05 am () Ermias Regan PA-C [Physician Powerhouse Helper] - 10/10/23 1:20 pm (Arrive at 1:10 pm for your appointment) Forms: [facility] Info Instructions
== END 2023-10-03 13:25 | disposition home or self-care (01) ==
LOC: ED 20:46 → MEDSURG 21:34
PROVIDERS: Admitting Provider Family Medicine; Emergency Provider Emergency Medicine Emergency Medical Services; PCP Family Medicine; Visit Provider Family Medicine
DX: S62.109A Fracture of unspecified carpal bone, unspecified wrist, initial encounter for closed fracture (principal); M54.16 Radiculopathy, lumbar region; R53.1 Weakness; M79.662 Pain in left lower leg; M79.672 Pain in left foot; R60.0 Localized edema; W19.XXXA Unspecified fall, initial encounter; G57.32 Lesion of lateral popliteal nerve, left lower limb; M21.372 Foot drop, left foot; R29.6 Repeated falls; I10 Essential (primary) hypertension; K21.9 Gastro-esophageal reflux disease without esophagitis; M81.0 Age-related osteoporosis without current pathological fracture; D12.6 Benign neoplasm of colon, unspecified; E78.00 Pure hypercholesterolemia, unspecified; N83.202 Unspecified ovarian cyst, left side; G57.92 Unspecified mononeuropathy of left lower limb; Z90.49 Acquired absence of other specified parts of digestive tract; Z98.891 History of uterine scar from previous surgery; Z96.653 Presence of artificial knee joint, bilateral; Z99.89 Dependence on other enabling machines and devices; Z98.890 Other specified postprocedural states
CPT/HCPCS: 25605; 73100; 73110; 87631; 96361; 96372; 96374; 96376; 97116; 97161; 97165; 97530; 97535; 99284; A9270; G0378; J1170; J1650; J2001; J2704; J7120

== ENCOUNTER 2023-10-18 08:44 | Day surgery (SDC) | payer MEDICARE, BC, SELFPAY ==
--- NOTE | 2023-10-16 13:52 | PC.SOCIAL ---
Received a phone call from Cora in admissions at [facility]. Cora is requesting information on pt that is set to have same day surgery on Monday (10/18/23) per family and family is requesting that pt go to [facility] for rehab. This worker instructed Cora to have the family reach out to the Ortho and discuss discharge plans. Phone call to Nurse Furniture Sales Consultant Paulie Sims to provide an update on pt. Social work will follow up as needed.
--- NOTE | 2023-10-17 13:19 | PC.SOCIAL ---
Social worK: At husbands request, faxed information from last hospital stay and home care notes to [facility] for evaluation for admit after same day surgery, wrist surgery tomorrow morning. Received email stating they can not provide post-op care at [facility], so are refusing patient. Called , Conrado, who confirms [facility] has contacted him to decline pt. He states he is contacting home advisor care agencies to provide extra help in the home and hopes to have this set up by tomorrow. Called Telemarketing Agent and informed her of [facility] decision.
[2023-10-18] VITALS (16 sets, daily range): BP systolic 130–157; BP diastolic 65–108; PULSE 72–92; RESP 14–23; TEMP 36.4–37.3; O2SAT 90–99; BMI 82.5
--- OUTSIDE RECORDS SUMMARY | 2023-10-18 09:18 | XMS_ITS | Encounter Summary ---
Author Name Unknown Organization [facility] Address [address] [place] [address] Care Team Providers Care Aircraft Air Conditioning Mechanic Name Role Phone Elsewhere, Pcp Primary Care Provider Unavailabl e Reason for Visit * Reason Onset Date Comments Error 10/12/2023 Encounter Details Date Type Department Care Team (Late st Contact Info) Description 10/12/2023 Clinical Communication Department of Neurology in [place], [place] [address] [phone] Seven Awan M.D. [address] [phone] Error Social History Tobacco Use Types Packs/Day Years Used Date Smoking Tobacco: Never Smokeless Tobacco: Never Nutrition Answer Date Recorded Nutrition: EVOO Fat Source Unknown 12/14 Nutrition: Servings of Fruits/Vegetables per Day Not on file 12/14/2020 Dental Answer Date Recorded Dental: Regular Dentist Unknown 12/16/19 21 Sex and Gender Information Value Date Recorded Sex Assigned at Not on file Gender Identity Not on file Sexual Orientation Not on file documented as of this encounter Plan of Treatment Not on file documented as of this encounter Visit Diagnoses Not on filedocumented in this encounter Care Teams Aircraft Air Conditioning Mechanic Relationship Specialty Start Date End Date Elsewhere, Pcp PCP - General Internal Medicine 09/11/23 documented as of this encounter
--- OUTSIDE RECORDS SUMMARY | 2023-10-18 09:18 | XMS_ITS ---
Author Name Unknown Organization [facility] Address [address] [place] [address] Care Team Providers Care Hog Dropper Name Role Phone Unavailable Unavailable Unavailable Surgery Details Not on file Complications Check Surgery Details section. Procedure Estimated Blood Loss Check Surgery Details section. Procedure Findings Check Surgery Details section. Procedure Specimens Taken Check Surgery Details section.
--- OUTSIDE RECORDS SUMMARY | 2023-10-18 09:18 | XMS_ITS | Encounter Summary ---
Author Name Unknown Organization [facility] Address [address] [place] [address] Care Team Providers Care Link Knitting Machine Operator Name Role Phone Elsewhere, Pcp Primary Care Provider Unavailabl e Encounter Details Date Type Department Care Team (Late st Contact Info) Description 10/13/2023 Clinical Communication Department of Spine in [place], [place] [address] [place] [phone] Prescheduling, Provider Social History Tobacco Use Types Packs/Day Years [...] on file documented as of this encounter Miscellaneous Notes * Telephone Encounter - Ifeoma Mg - 10/13/2023 3:43 PM [facility] Questionnaire SFILL TECHNICIAN documented in this encounter Plan of Treatment Not on file documented as of this encounter Visit Diagnoses Not on filedocumented in this encounter Care Teams Link Knitting Machine Operator Relationship Specialty Start Date End Date Elsewhere, Pcp PCP - General Internal Medicine 09/11/23 documented as of this encounter
--- OUTSIDE RECORDS SUMMARY | 2023-10-18 09:18 | XMS_ITS | Referral Summary ---
Author Name Unknown Organization [facility] Address [address] [place] [address] Care Team Providers Care Sexual Health Physician Name Role Phone Elsewhere, Pcp Primary Care Provider Unavailabl e Source Comments Patient records contain information from all sites at [facility]. For routine questions regarding patient records, call [phone] during business hours, M-F 8:00 AM - 5:00 PM Central Time. Record requests for emergency care only can be directed to [phone] at any time.[facility] Encounters Date Type Department Care Team Description 10/13/2023 Clinical Communication Department of Spine in [place], [place] [address] [place] [address] Prescheduling, Provider 10/12/2023 Clinical Communication Department of Neurology in [place], [place] [address] [place] [phone] Seven Awan M.D. Error 09/18/2023 11:30 AM METAL SASH SETTER Office Visit Department of Urology in [place], [place] [address], [place] [address] Sanam Avilez APRN, C.N.P. Stone Kidney (Primary Dx) 09/15/2023 Orders Only Department of Urology in [place], [place] [address], [place] [phone] Sanam Avilez APRN, C.N.P. 09/13/2023 7:20 AM METAL SASH SETTER - 09/13/2023 11:59 PM METAL SASH SETTER Hospital Encounter Department of Radiology in [address] [phone] Gilson Smith M.D. Lithotripsy Extracoporeal Shock Wave Status Post Discharge Disposition: Home or Self Care 09/11/2023 Orders Only Department of Urology in [address] [phone] Gilson Smith M.D. 09/11/2023 9:30 AM METAL SASH SETTER Office Visit Department of Family Medicine, [facility], in [address] [phone] Nataly Ferraro APRN C.N.PChava, D.N.PChava Preoperative Exam (Primary Dx); Nephrolithiasis Calcium Oxalate 09/07/2023 Clinical Communication Department of Urology in [address] [phone] Gilson Smith M.D. 09/07/2023 3:36 PM METAL SASH SETTER - 09/07/2023 11:59 PM METAL SASH SETTER Hospital Encounter Department of Laboratory Medicine in [address] [phone] Gilson Smith M.D. Nephrolithiasis Calcium Oxalate Discharge Disposition: Home or Self Care 09/07/2023 2:30 PM METAL SASH SETTER Comprehensive Visit Department of Urology in [address] [phone] Gilson Smith M.D. Nephrolithiasis Calcium Oxalate (Primary Dx) from Last 3 Months Allergies Active Allergy Reactions Criticality Noted Date Comments Shellfish Derived GI intolerance 08/01/2023 Medications Medication Sig Dispensed Refills Start Date End Date Status cholecalciferol (VITAMIN D3) 25 mcg (1,000 Unit) capsule Take 1 capsule by mouth daily. 0 08/24/2012 Active FLUoxetine (PROzac) 40 mg capsule Take 80 mg by mouth daily. 0 10/20/2022 Active lisinopriL (PRINIVIL,ZESTRIL ) 40 mg tablet Take 40 mg by mouth. 0 10/20/2022 Active omeprazole (PriLOSEC) [address] capsule Take 40 mg by mouth. 0 02/23/2023 Active oxyCODONE (ROXICODONE) 5 mg immediate release tablet Take 5 mg by mouth every 6 (six) hours as needed. 0 08/28/2023 Active rosuvastatin (CRESTOR) 10 mg tablet Take 10 mg by mouth daily. 0 10/20/2022 Active triamterene-hydro CHLOROthiazide (MAXZIDE-25) 37.5-25 mg per tablet Take 1 tablet by mouth every morning. Holding due to hypotension 0 10/20/2022 Active tamsulosin (FLOMAX) 0.4 mg 24 hr capsule Take 1 capsule (0.4 mg total) by mouth daily. 14 capsule 0 09/15/2023 Active gabapentin (NEURONTIN) 100 mg capsule Take 100 mg by mouth. 0 09/17/2023 Active cefdinir (OMNICEF) 300 mg capsule Take 1 capsule (300 mg total) by mouth every 12 (twelve) hours for 10 days. 20 capsule 0 09/11/2023 09/21/2023 Active Problems Problem Noted Date Diagnosed Date History Of Falling 09/11/2023 Immunizations Name Administration Dates Next Due Influenza (IM) Preservative Free 08/16/2011 Influenza TIV (IM) 09/10/2019, 8,07/18/2017,2012,06/22/2012,08/16/2011,08/03/2010,1 ,08/05/2008,08/15/2007 Influenza high dose QV(65 ye ars or older) (PF) 07/04/2022 Influenza, Quadrivalent, Adj uvanted, Preservative Free 06/28/2023,08/18/2021,06/23/2020 Influenza, Seasonal, Injectable 08/29/20 13,06/22/2012,08/03/2010,2008,08/05/2008,08/15/2007,09/06/2006,1 10/16/2004,09/02/2003 Influenza, Unspecified 09/10/2019,2017,07/18/2017,2015,09/30/2015,08/29/2013,06/22/2012,1 10/16/2010,08/03/2010,07/23/2009, 008,08/15/2007,09/06/2006,08/16/2005, PCV13 09/20/2016 PPSV23 09/26/2017 RZV (SHINGRIX) 10/15/2022,08/05/2022 SARS-COV-2 (COVID-19) - PFIZ ER BIVALENT TS(12 YEARS OR OLDER) 07/04/2022 Tdap 09/26/2017,12/06/2006 influenza high dose (65 year s or older) (PF) 07/08/2016,09/30/2015 influenza vaccine quad (FLUZONE/FLUARIX) (6 months and older)(PF) 07/17/2014 Social History Tobacco Use Types Packs/Day Years Used Date Smoking Tobacco: Never Smokeless Tobacco: Never Tobacco Cessation:Counseling Given: Not Answered Nutrition Answer Date Recorded Nutrition: EVOO Fat Source Unknown 12/14 Nutrition: Servings of Fruits/Vegetables per Day Not on file 12/14/2020 Dental Answer Date Recorded Dental: Regular Dentist Unknown 12/16/19 21 Sex and Gender Information Value Date Recorded Sex Assigned at Not on file Gender Identity Not on file Sexual Orientation Not on file Last Filed Vital Signs Vital Sign Reading Time Taken Comments Blood Pressure 123/79 09/11/2023 9:37 AM METAL SASH SETTER Pulse 85 09/11/2023 9:37 AM METAL SASH SETTER Temperature 36.4 ??C (97.5 ??F) 09/11/2023 9 :37 AM METAL SASH SETTER Respiratory Rate 18 09/11/2023 9:37 AM METAL SASH SETTER Oxygen Saturation 97% 09/11/2023 9:3 7 AM METAL SASH SETTER Room air Inhaled Oxygen Concentration - - Weight 103 kg (226 lb 10.1 oz) 09/11/20 9:37 AM METAL SASH SETTER With shoes Height 166.3 cm (5' 5.47) 09/11/2023 9 :37 AM METAL SASH SETTER With shoes Body Mass Index 37.17 09/11/2023 9:37 AM METAL SASH SETTER Plan of Treatment Not on file Medical Devices Implanted Type Area Obstetrics Gynecology Md Device Identifier Shelf Expiration Date Model / Serial / Lot Stent Other Stent Other Kidney Procedures Procedure Name Priority Date/Time Associated Diagnosis Comments [place] CYSTHRSCPY RMVL FB/STENT SMPL Routine 09/18/2023 11:30 AM METAL SASH SETTER Stone Kidney OUTSIDE MR NEURO Routine 09/17/2023 3:10 PM METAL SASH SETTER FL FLUORO LESS THAN 1 HOUR RAD - Routine (most inpatients and all outpatients) 09/13/2023 4:48 PM METAL SASH SETTER Lithotripsy Extracoporeal Shock Wave Status Post BACTERIAL CULTURE, AEROBIC + SUSC, URINE Routine 09/07/2023 4:16 PM METAL SASH SETTER Nephrolithiasis Calcium Oxalate OUTSIDE US BODY Routine 09/07/2023 10:05 AM METAL SASH SETTER OUTSIDE CT BODY Routine 08/28/2023 3:55 PM METAL SASH SETTER OUTSIDE FL GI Routine 08/23/2023 12:55 PM METAL SASH SETTER OUTSIDE CT BODY Routine 08/16/2023 9:00 AM METAL SASH SETTER from Last 3 Months Results * IL CYSTHRSCPY RMVL FB/STENT SMPL (09/18/2023 11:30 AM METAL SASH SETTER) Narrative Sanam Avilez APRN, C.N.P. - 09/18/2023 11:30 AM METAL SASH SETTER Sanam Avilez APRN, C.N.P. ? 09/18/2023 12:44 PM Cystoscopy Performed by: Sanam Avilez APRN, C.N.P. Authorized by: Sanam Avilez APRN, C.N.P. ?? Care team members present 1. Sanam Avilez APRN, C.N.P. 2. Zoila Dickerson R.N. IMPRESSION ?? negative cystoscopy Additional procedures performed: cystoscopy and stent removal ?? PROCEDURE DETAILS Urethra (female): ??Normal: yes ?? Sphincter: ??Characteristic: coapting ?? Bladder: ??Normal: yes ?? Ureteral stent removed: ??Side performed: ??Left Removal: simple ?? Utilizing grasping forceps ureteral stent is removed in its entirety without complication. ??The patient tolerated this well. Blue light imaging agent used: ??no A flexible cystoscope was inserted through the urethra into the bladder. Cystoscope was removed at the end of procedure. CONSENT Consent obtained: verbal Consent given by: patient The benefits, risks and alternatives to the procedure and the potential need for sedation or anesthesia as well as the names, roles, and responsibilities of healthcare team members performing significant interventional tasks were discussed with the patient and/or decision maker. UNIVERSAL PROTOCOL All relevant documentation and testing were reviewed and available. All required blood products, implants, devices and or special equipment were made available as applicable. Pre-procedure verification was conducted and the correct site was marked if required. A fire risk assessment was done as applicable. The procedural time-out to verify correct patient, correct side/site, and procedure was conducted prior to performing the procedure and confirmed in a procedural pause. PRE-PROCEDURE DETAILS Procedure purpose: ??Therapeutic Indications: ??Left ureteral stent removal Appropriate hand hygiene, gown, cap, mask, protective eyewear, sterile gloves, skin preparation, sterile drape, and strict aseptic technique were utilized as applicable for the procedure.: yes ?? Site preparation: ??Povidone-iodine SEDATION / ANESTHESIA Anesthesia method: topical application Topical application type: lidocaine POST-PROCEDURE DETAILS Procedure completed successfully: yes ?? Complications: no apparent complications ?? COMMENTS Results from stone analysis are not yet available. ??We discussed options for prevent Ng further stone formation. ??She does not drink large amounts of fluid during the day, this has likely causative factor for stone formation. ??We discussed that she should drink 80-100 oz of fluid each day. ??She should eat a wide variety foods in moderation, paying attention to portion sizes. ??We discussed avoiding high-protein diet and avoiding begin protein sources that are soy based. ??When results of stone analysis are available, we will contact her and discuss next steps going forward. ?? She should complete antibiotics as prescribed, continue Flomax for additional 2-3 days. ??All questions answered today. Abel Gleason APRNNChavaP. UROLOGY O RDERABLES * MR lumbar spine wo con-Outside MR Neuro (09/17/2023 3:10 PM METAL SASH SETTER) Narrative [facility] - 10/13/2023 3:33 PM METAL SASH SETTER This order has been created and auto-finalized to support the import of outside images. If available, original interpretation can be found on the Media Tab in Chart Review, in Document Viewer, or as an image in QREADS. If a re-interpretation or overread is required please follow defined workflow. ?? Provider Not In System IMG MRI PROCEDURE S Performing Organization Address [facility] Co de Phone Number [facility] NA * FL Fluoro Less Than 1 Hour (09/13/2023 4:48 PM METAL SASH SETTER) Narrative [id number] LOS SEMN - 09/13/2023 5:07 PM METAL SASH SETTER This exam does not require a radiologist review or interpretation. Please refer to the patient's medical record on this date for clinical details. Gilson Smith M.D. IMG FLUOROSCOPY PROC EDURES Performing Organization Address [facility] Co de Phone Number [phone] LOS SEMN * (ABNORMAL) Bacterial Culture, Aerobic + Susceptibility, Urine (09/07/2023 4:16 PM METAL SASH SETTER) Urine Culture Mixed microbiota (A) 09/08/2023 4:11 PM METAL SASH SETTER [facility] Urine (Urine, Midstream) 09/07/2023 4:16 PM METAL SASH SETTER 09/07/2023 7:41 PM METAL SASH SETTER Comment:Specimen Source Site : Urine Gilson Smith M.D. LAB MICROBIOLOGY - G ENERAL ORDERABLES Performing Organization Address [facility] Co de Phone Number [facility] [place] [address], [facility] MKTO [facility] [place] [address] [place] [id number] * US PELVIS COMPLETE TV-Outside US Body (09/07/2023 10:05 AM METAL SASH SETTER) 09/07/2023 10:0 2 AM METAL SASH SETTER Narrative [facility] - 09/07/2023 11:09 AM METAL SASH SETTER This order has been created and auto-finalized to support the import of outside images. If available, original interpretation can be found on the Media Tab in Chart Review, in Document Viewer, or as an image in QREADS. If a re-interpretation or overread is required please follow defined workflow. ?? Provider Not In System IMG US PROCEDURES Performing Organization Address [facility] de Phone Number [facility] NA * CT Abdomen Pelvis W-Outside CT Body (08/28/2023 3:55 PM METAL SASH SETTER) Only the most recent of2 resultswithin the time period is included. Narrative [facility] - 09/07/2023 10:50 AM METAL SASH SETTER This order has been created and auto-finalized to support the import of outside images. If available, original interpretation can be found on the Media Tab in Chart Review, in Document Viewer, or as an image in QREADS. If a re-interpretation or overread is required please follow defined workflow. ?? Provider Not In System IMG CT PROCEDURES Performing Organization Address [facility] de Phone Number [facility] NA * XR RETROGRADE PYELOGRAM W/WO KUB-Outside RF GI (08/23/2023 12:55 PM METAL SASH SETTER) Narrative [facility] - 09/07/2023 10:49 AM METAL SASH SETTER This order has been created and auto-finalized to support the import of outside images. If available, original interpretation can be found on the Media Tab in Chart Review, in Document Viewer, or as an image in QREADS. If a re-interpretation or overread is required please follow defined workflow. ?? Provider Not In System IMG FLUOROSCOPY P ROCEDURES Performing Organization Address [facility] de Phone Number [facility] NA from Last 3 Months Care Teams Sexual Health Physician Relationship Specialty Start Date End Date Elsewhere, Pcp PCP - General Internal Medicine 09/11/23
--- OUTSIDE RECORDS SUMMARY | 2023-10-18 09:18 | XMS_ITS | Clinical Summary ---
Author Name Unknown Organization [facility] Address [address] [place] [address] Care Team Providers Care Nut Orchardist Name Role Phone Elsewhere, Pcp Primary Care Provider Unavailabl e Source Comments Patient records contain information from all sites at [facility]. For routine questions regarding patient records, call [phone] during business hours, M-F 8:00 AM - 5:00 PM Central Time. Record requests for emergency care only can be directed to [phone] at any time.[facility] Allergies Active Allergy Reactions Criticality Noted Date [...] Date Diagnosed Date History Of Falling 09/11/2023 Encounters Date Type Department Care Team Description 10/13/2023 Clinical Communication Department of Spine in [place], [place] [address] [place] [address] Prescheduling, Provider 10/12/2023 Clinical Communication Department of Neurology in [place], [place] [address] [place] [phone] Seven Awan M.D. Error 09/18/2023 11:30 AM SPECIAL SHOPPER Office Visit Department of Urology in [address] [place] [phone] Sanam Avilez APRN, C.N.P. Stone Kidney (Primary Dx) 09/15/2023 Orders Only Department of Urology in [place], [place] [address] [place] [phone] Sanam Avilez APRN, C.N.P. 09/13/2023 7:20 AM SPECIAL SHOPPER - 09/13/2023 11:59 PM SPECIAL SHOPPER Hospital Encounter Department of Radiology in [address] [phone] Gilson Smith M.D. Lithotripsy Extracoporeal Shock Wave Status Post Discharge Disposition: Home or Self Care 09/11/2023 9:30 AM SPECIAL SHOPPER Office Visit Department of Family Medicine, [facility], in [address] [phone] Nataly Ferraro APRN, C.N.P., D.N.P. Preoperative Exam (Primary Dx); Nephrolithiasis Calcium Oxalate 09/11/2023 Orders Only Department of Urology in [address] [phone] Gilson Smith M.D. 09/07/2023 3:36 PM SPECIAL SHOPPER - 09/07/2023 11:59 PM SPECIAL SHOPPER Hospital Encounter Department of Laboratory Medicine in [address] [phone] Gilson Smith M.D. Nephrolithiasis Calcium Oxalate Discharge Disposition: Home or Self Care 09/07/2023 2:30 PM SPECIAL SHOPPER Comprehensive Visit Department of Urology in [address] [phone] Gilson Smith M.D. Nephrolithiasis Calcium Oxalate (Primary Dx) 09/07/2023 Clinical Communication Department of Urology in [address] [phone] Gilson Smith M.D. from Last 3 Months Immunizations Name Administration Dates Next Due Influenza [...] Comments Blood Pressure 123/79 09/11/2023 9:37 AM SPECIAL SHOPPER Pulse 85 09/11/2023 9:37 AM SPECIAL SHOPPER Temperature 36.4 ??C (97.5 ??F) 09/11/2023 9 :37 AM SPECIAL SHOPPER Respiratory Rate 18 09/11/2023 9:37 AM SPECIAL SHOPPER Oxygen Saturation 97% 09/11/2023 9:3 7 AM SPECIAL SHOPPER Room air Inhaled Oxygen Concentration - - Weight 103 kg (226 lb 10.1 oz) 09/11/20 9:37 AM SPECIAL SHOPPER With shoes Height 166.3 cm (5' 5.47) 09/11/2023 9 :37 AM SPECIAL SHOPPER With shoes Body Mass Index 37.17 09/11/2023 9:37 AM SPECIAL SHOPPER Plan of Treatment Health Maintenance Due Date Last Done Comments Bone Density Scan (Osteoporo sis Screen) 1950 CT Colonography 1950 Cologuard 1950 Colonoscopy 1950 Colorectal Cancer Screening 1950 FIT 1950 Hepatitis C Screening 1950 COVID-19 Vaccine (7 2022-2 4 season) 2023 06/28/2023, 07/04/2022, 02/12/2022, Additional history exists Depression Screening (Annual PHQ-2) 10/09/2023 Fall Risk Screen (Annual) 10/09/2023 Mammogram 10/20/2023 10/20/2022, 10/09, 10/13/2020, Additional history exists Creatinine Level (Kidney Fun ction Test) 08/28/2024 08/28/2023, 08/16/2023, 10/20/2022, Additional history exists Potassium Level 08/28/2024 08/28/2023, 08/09, 10/20/2022, Additional history exists Sodium Level 08/28/2024 08/28/2023, 10/09, 12/21/2021, Additional history exists Fasting Glucose for Diabetes Screening 08/28/2026 08/28/2023, 10/20/2022, 12/21/2021, Additional history exists DTaP,Tdap,and Td Vaccines (3 - Td or Tdap) 09/26/2027 09/26/2017, 12/06/2006 Pneumococcal vaccine (65+ years) Completed 09/26/20, 09/20/2016 Zoster Vaccines Completed 10/15/2022, 08/05/2022 Influenza Vaccine Completed 06/28/2023, , 07/04/2022, Additional history exists Medical Devices Implanted Type Area Ram Car Operator Device Identifier Shelf Expiration Date Model / Serial / Lot Stent Other Stent Other Kidney Procedures Procedure Name Priority Date/Time Associated Diagnosis Comments IN CYSTHRSCPY RMVL FB/STENT SMPL Routine 09/18/2023 11:30 AM SPECIAL SHOPPER Stone Kidney OUTSIDE MR NEURO Routine 09/17/2023 3:10 PM SPECIAL SHOPPER FL FLUORO LESS THAN 1 HOUR RAD - Routine (most inpatients and all outpatients) 09/13/2023 4:48 PM SPECIAL SHOPPER Lithotripsy Extracoporeal Shock Wave Status Post BACTERIAL CULTURE, AEROBIC + SUSC, URINE Routine 09/07/2023 4:16 PM SPECIAL SHOPPER Nephrolithiasis Calcium Oxalate OUTSIDE US BODY Routine 09/07/2023 10:05 AM SPECIAL SHOPPER OUTSIDE CT BODY Routine 08/28/2023 3:55 PM SPECIAL SHOPPER OUTSIDE FL GI Routine 08/23/2023 12:55 PM SPECIAL SHOPPER OUTSIDE CT BODY Routine 08/16/2023 9:00 AM SPECIAL SHOPPER from Last 3 Months Results * IN CYSTHRSCPY RMVL FB/STENT SMPL (09/18/2023 11:30 AM SPECIAL SHOPPER) Narrative Sanam Avilez APRN, C.N.P. - 09/18/2023 11:30 AM SPECIAL SHOPPER Sanam Avilez APRN, C.N.P. ? 09/18/2023 12:44 [...] additional 2-3 days. ??All questions answered today. Sanam Avilez APRN, C.N.P. UROLOGY O RDERABLES * MR lumbar spine wo con-Outside MR Neuro (09/17/2023 3:10 PM SPECIAL SHOPPER) Narrative IIDE - 10/13/2023 3:33 PM SPECIAL SHOPPER This order has been created and auto-finalized to support the import of outside images. If available, original interpretation can be found on the Media Tab in Chart Review, in Document Viewer, or as an image in QREADS. If a re-interpretation or overread is required please follow defined workflow. ?? Provider Not In System IMG MRI PROCEDURE S Performing Organization Address [facility] Co de Phone Number IIDE NA * FL Fluoro Less Than 1 Hour (09/13/2023 4:48 PM SPECIAL SHOPPER) Narrative [id number] LOS SEMN - 09/13/2023 5:07 PM SPECIAL SHOPPER This exam does not require a radiologist review or interpretation. Please refer to the patient's medical record on this date for clinical details. Gilson Smith M.D. IMG FLUOROSCOPY PROC EDURES Performing Organization Address [facility] Co de Phone Number [phone] LOS SEMN * (ABNORMAL) Bacterial Culture, Aerobic + Susceptibility, Urine (09/07/2023 4:16 PM SPECIAL SHOPPER) Urine Culture Mixed microbiota (A) 09/08/2023 4:11 PM SPECIAL SHOPPER TO Urine (Urine, Midstream) 09/07/2023 4:16 PM SPECIAL SHOPPER 09/07/2023 7:41 PM SPECIAL SHOPPER Comment:Specimen Source Site : Urine Gilson Smith M.D. LAB MICROBIOLOGY - G ENERAL ORDERABLES Performing Organization Address [facility] Co de Phone Number [facility] [address] [place] [address], [facility] [place] [facility] [place] [place] [address] * US PELVIS COMPLETE TV-Outside US Body (09/07/2023 10:05 AM SPECIAL SHOPPER) 09/07/2023 10:0 2 AM SPECIAL SHOPPER Narrative IIMS - 09/07/2023 11:09 AM SPECIAL SHOPPER This order has been created and auto-finalized to support the import of outside images. If available, original interpretation can be found on the Media Tab in Chart Review, in Document Viewer, or as an image in QREADS. If a re-interpretation or overread is required please follow defined workflow. ?? Provider Not In System IMG US PROCEDURES Performing Organization Address [facility] de Phone Number IIMS NA * CT Abdomen Pelvis W-Outside CT Body (08/28/2023 3:55 PM SPECIAL SHOPPER) Only the most recent of2 resultswithin the time period is included. Narrative IIDE - 09/07/2023 10:50 AM SPECIAL SHOPPER This order has been created and auto-finalized to support the import of outside images. If available, original interpretation can be found on the Media Tab in Chart Review, in Document Viewer, or as an image in QREADS. If a re-interpretation or overread is required please follow defined workflow. ?? Provider Not In System IMG CT PROCEDURES Performing Organization Address [facility] de Phone Number II NA * XR RETROGRADE PYELOGRAM W/WO KUB-Outside RF GI (08/23/2023 12:55 PM SPECIAL SHOPPER) Narrative IIDE - 09/07/2023 10:49 AM SPECIAL SHOPPER This order has been created and auto-finalized to support the import of outside images. If available, original interpretation can be found on the Media Tab in Chart Review, in Document Viewer, or as an image in QREADS. If a re-interpretation or overread is required please follow defined workflow. ?? Provider Not In System IMG FLUOROSCOPY P ROCEDURES Performing Organization Address [facility] de Phone Number II NA from Last 3 Months Care Teams Nut Orchardist Relationship Specialty Start Date End Date Elsewhere, Pcp PCP - General Internal Medicine 09/11/23
--- OUTSIDE RECORDS SUMMARY | 2023-10-18 09:19 | XMS_ITS | Encounter Summary ---
Author Name Unknown Organization [facility] Address [address] [place] [address] Care Team Providers Care Javascript Software Engineer Name Role Phone Elsewhere, Pcp Primary Care Provider Unavailabl e Reason for Visit * Reason Comments Pre-op Exam LITHOTRIPSY URETEROS COPY WITH LASER-LEFT- [place]- 2:30pmSGilson villafuerte MDSurgery - UrologyNPI: [id number] [address]&&[facility] [address] Phone: Hlx: Other Patient would like t o talk about anesthesia concerns. * Appointment Request (Routine) - Closed Specialty Diagnoses / Procedures Referred By Shawn t Referred To Contact Family Medicine Referral ID Status Reason Start Date Expiration Date Visits Re quested Visits Authorized [id number] Closed 09/07/2023 09/06/2024 1 1 Encounter Details Date Type Department Care Team (Late Contact Info) Description 09/11/2023 9:30 AM INJECTION MOLDING MACHINE TENDER Office Visit Department of Family Medicine, [facility], in [place], [place] [address] [place] [phone] Frankie-Nataly Moore APRN, C.N.P., D.N.P. [address] [phone] Preoperative Exam (Primary Dx); Nephrolithiasis Calcium Oxalate Social History Tobacco Use Types Packs/Day Years [...] on file documented as of this encounter Last Filed Vital Signs Vital Sign Reading Time Taken Comments Blood Pressure 123/79 09/11/2023 9:37 AM INJECTION MOLDING MACHINE TENDER Pulse 85 09/11/2023 9:37 AM INJECTION MOLDING MACHINE TENDER Temperature 36.4 ??C (97.5 ??F) 09/11/2023 9 :37 AM INJECTION MOLDING MACHINE TENDER Respiratory Rate 18 09/11/2023 9:37 AM INJECTION MOLDING MACHINE TENDER Oxygen Saturation 97% 09/11/2023 9:3 7 AM INJECTION MOLDING MACHINE TENDER Room air Inhaled Oxygen Concentration - - Weight 103 kg (226 lb 10.1 oz) 09/11/20 23 9:37 AM INJECTION MOLDING MACHINE TENDER With shoes Height 166.3 cm (5' 5.47) 09/11/2023 9 :37 AM INJECTION MOLDING MACHINE TENDER With shoes Body Mass Index 37.17 09/11/2023 9:37 AM INJECTION MOLDING MACHINE TENDER documented in this encounter H&P Notes * Nataly Ferraro APRN, C.N.P., D.N.P. - 09/11/2023 9:30 AM INJECTION MOLDING MACHINE TENDER SUBJECTIVE PREOPERATIVE HISTORY AND PHYSICAL CHIEF COMPLAINT/REASON FOR VISIT Martha Brooks is a 73 y.o. female who presents for evaluation of Pre- op Exam (LITHOTRIPSY URETEROSCOPY WITH LASER-LEFT- [place]- 2:30pm///Gilson Smith MD/Surgery - Urology/ /[address] [address]/ /Phone: /Fax: /)and Other (Patient would like to talk about anesthesia concerns. /). HISTORY OF PRESENT ILLNESS Martha Brooks is a very pleasant 73-year-old female who presents for preop evaluation for upcoming lithotripsy ureteroscopy with laser- rober, [place] 2:30 p.m. with Gilson Smith MD/surgery. Patient has a history of Left renal calculus- 1.5 cm left renal pelvis stone and had a urethral stent placed 08/23/23 at [facility] but had an unhappy experience with the surgeon there. The patient is now working with Dr. Gutiérrez at [place] for the upcoming surgery. She reports no recent cold no flu use, no allergy to latex, no chest pain or palpitation or shortness a breath. The patient has ongoing hypertension with a blood pressure currently 123/79 and is taking antihypertensive medication. She has a history of GERD for which she takes Prilosec. She also takes a statin daily for hyperlipidemia. Elizabeth reports experiencing a negative reaction to anesthesia during the stent placement, with dizziness and unspecified blood pressure issues. She denies a history of malignant hyperthermia. She reports taking about 400-800 mg of ibuprofen daily to help manage renal colic and to assist with sleep. Patient had no other concerns or questions at this time. Current Outpatient Medications Medication Sig Dispense Refill cholecalciferol (VITAMIN D3) 25 mcg (1,000 Unit) capsule Take 1 capsule by mouth daily. FLUoxetine (PROzac) 40 mg capsule Take 80 mg by mouth. lisinopriL (PRINIVIL,ZESTRIL) 40 mg tablet Take 40 mg by mouth. omeprazole (PriLOSEC) [address] capsule Take 40 mg by mouth. oxyCODONE (ROXICODONE) 5 mg immediate release tablet Take 5 mg by mouth every 6 (six) hours as needed. rosuvastatin (CRESTOR) 10 mg tablet Take 10 mg by mouth. triamterene-hydroCHLOROthiazide (MAXZIDE-25) 37.5-25 mg per tablet Take 1 tablet by mouth every morning. Holding due to hypotension cefdinir (OMNICEF) 300 mg capsule Take 1 capsule (300 mg total) by mouth every 12 (twelve) hours for 10 days. (Patient not taking: Reported on 09/11/2023) 20 capsule 0 cyclobenzaprine (FLEXERIL) 5 mg tablet Take 5 mg by mouth at bedtime as needed. HYDROcodone-acetaminophen (NORCO) 7.5-325 mg per tablet Take 1 tablet by mouth every 4 (four) hoursas needed. methocarbamoL (ROBAXIN) 500 mg tablet Take 500 mg by mouth. sucralfate (CARAFATE) 1 gram tablet TAKE 1 TABLET (1 G) BY MOUTH FOUR TIMES DAILY BEFORE MEALS AND AT BEDTIME FOR 7 DAYS. tamsulosin (FLOMAX) 0.4 mg 24 hr capsule Take 0.4 mg by mouth. No current facility-administered medications for this visit. Allergies Allergen Reactions Shellfish Derived GI intolerance REVIEW OF SYSTEMS General: Denies recent fever, weight loss, or extreme fatigue. Eyes: Denies double vision or sudden loss of vision. ENT: Denies sore throat, runny nose, ear pain, or hearing loss. Heart: Denies chest pain or irregular heartbeats. Respiratory: Denies cough, wheezing, or shortness of breath. Digestion: Denies nausea, vomiting, diarrhea, or constipation. Genitourinary: Denies frequent or painful urination. Skin: Denies rash, sores, excessive bruising, or change of a mole. Nerves/Brain: Denies headache, persistent weakness, or numbness. Endocrine: Denies excessive thirst or urination, cold or heat intolerance. Blood: Denies unusual bruising or bleeding, or enlarged lymph nodes. AANA PREANESTHESIA QUESTIONS: -Have you recently had a cold or the flu? no -Are you allergic to latex (rubber) products? no -Have you experienced chest pain? no -Do you have a heart condition? -Do you have hypertension (high blood pressure)? Yes, blood pressure today 123/79 in his currently on antihypertensive. -Do you experience shortness of breath? no -Do you have asthma, bronchitis, obstructive sleep apnea? no -Do you snore loudly or have any other breathing problems? no -Do you (or did you) smoke? no -Do you consume alcohol? A glass of wine maybe once a week per patient -Do you take or have you taken recreational drugs? no -Have you taken cortisone (steroids) in the last 6 months? no -Do you take any nonsteroidal or anti-inflammatory drugs (NSAIDS) such as aspirin, ibuprofen, naproxen? Yes; 800 mg ibuprofen daily to manage and by by daily renal colic. -Do you take herbal supplements, or complementary or alternative medicines?no -Do you have diabetes? no -Have you had hepatitis, liver disease, or jaundice? no -Do you have a thyroid condition? no -Do you have or have you ever had kidney disease? no -Do you have ulcers or other stomach disorders? History of GERD currently taking Prilosec. -Do you have a hiatal hernia? no -Do you have back or neck pain? no -Do you have numbness, weakness, or paralysis of your extremities? no -Do you have any muscle or nerve disease? no -Do you or any of your family have sickle cell trait? no -Have you or any blood relatives had difficulties with anesthesia? No history malignant hyperthermia. Patient reports recent history of renal stent placement and delayed recovery status post anesthesia: -Do you have bleeding problems? no -Do you have loose, chipped or false teeth, bridge work, or oral piercings (such as studs or rings)in your tongue or lip? no -Do you wear contact lenses? no -Have you ever received a blood transfusion? no ASA PS CLASSIFICATION: II MEDICAL HISTORY There is no problem list on file for this patient. No past surgical history on file. Social History Tobacco Use Smoking status: Never Smokeless tobacco: Never Vaping Use Vaping Use: never used No family history on file. OBJECTIVE Vitals: 09/11/23 0937 BP: 123/79 BP Location: Left arm Patient Position: Sitting Cuff Size: Regular Pulse: 85 Resp: 18 Temp: 36.4 ??C TempSrc: Temporal SpO2: 97% Weight: 103 kg Height: 166.3 cm Body mass index is 37.17 kg/m??. PHYSICAL EXAMINATION Constitutional Appearance: Normal appearance. HENT Head: Normocephalic and atraumatic. Right Ear: Tympanic membrane normal. Left Ear: Tympanic membrane normal. Mouth/Throat: Mouth: Mucous membranes are moist. Pharynx: Oropharynx is clear. Cardiovascular Rate and Rhythm: Normal rate and regular rhythm. Pulmonary Effort: Pulmonary effort is normal. Breath sounds: Normal breath sounds. Abdominal General: Bowel sounds are normal. Musculoskeletal General: Normal range of motion. Cervical back: Normal range of motion and neck supple. Comments: Ambulates with a cane Skin General: Skin is warm and dry. Neurological General: No focal deficit present. Mental Status: She is alert and oriented to person, place, and time. Psychiatric Mood and Affect: Mood normal. Behavior: Behavior normal. ASSESSMENT / PLAN #1 Nephrolithiasis Calcium Oxalate #2 Preoperative exam - based on her culture seeing mixed pool Dr. Smith sent cefdinir to pharmacy as he would like to treat this prior to operating room on Monday-patient informed and agree with this plan. Patientrequested prescription be transferred to [place]. RISK ASSESSMENT Cardiovascular Risk: -Patient is able to perform ADL's without assistance and able to walk up a flight of stairs withoutchest pain. -The patient does not have chest pain at rest and with exertion. METS >4. -Patient does not have a history of congestive heart failure. -The patient does not have a history of stroke and does not have a history of valvular disease. MEDICATIONS: Do not use any aspirin, nonsteroidal anti-inflammatory medications (ibuprofen, Advil, Motrin, Aleve) or fish oil 10 days prior to your procedure. Nothing to eat or drink after midnight the night before your procedure. Patient should take their regular medications the morning of surgery unless otherwise instructed. ASA PS classification: II Patient is medically optimized for the upcoming surgery. She will proceed with the upcoming surgeryas planned. Patient agreed with the plan all her questions were answered. Billin minutes spent with this patient. All questions were answered. The patient verbalized understanding and agreement with the above plan. Nataly Ferraro APRN, C.N.P., D.N.P. CTION MOLDING MACHINE TENDER documented in this encounter Plan of Treatment Not on file documented as of this encounter Visit Diagnoses Diagnosis Preoperative Exam- Primary Nephrolithiasis Calcium Oxalate documented in this encounter Care Teams Javascript Software Engineer Relationship Specialty Start Date End Date Elsewhere, Pcp PCP - General Internal Medicine 09/11/23 documented as of this encounter
--- OUTSIDE RECORDS SUMMARY | 2023-10-18 09:19 | XMS_ITS | Encounter Summary ---
Author Name Unknown Organization [facility] Address [address] [place] [address] Care Team Providers Care Agricultural Scientist Name Role Phone Elsewhere, Pcp Primary Care Provider Unavailabl e Reason for Referral * Outpatient (Routine) - Closed Specialty Diagnoses / Procedures Referred By Shawn t Referred To Contact Diagnoses Stone Kidney Procedures Cystoscopy Sanam Avilez APRN, C.N.P. [address] [place] [address] [facility] Region Referral ID Status Reason Start Date Expiration Date Visits Re quested Visits Authorized [id number] Closed 09/18/2023 09/17/2024 1 1 D SALES CONSULTANT Reason for Visit * Reason Comments Post-op Urolithiasis * Appointment Request (Routine) - Closed Specialty Diagnoses / Procedures Referred By Contac t Referred To Contact Urology Referral ID Status Reason Start Date Expiration Date Visits Re quested Visits Authorized [id number] Closed 09/07/2023 09/06/2024 1 1 Encounter Details Date Type Department Care Team (Late st Contact Info) Description 09/18/2023 11:30 AM FIELD SALES CONSULTANT Office Visit Department of Urology in [place], [place] [address] [place] [address] Sanam Avilez APRN, C.N.P. [address] [phone] Stone Kidney (Primary Dx) Social History Tobacco Use Types Packs/Day Years [...] on file documented as of this encounter Procedure Notes * Sanam Avilez APRN C.N.P. - 09/18/2023 11:30 AM CSTAssociated Order(s): Cystoscopy Post-Procedure Diagnose(s): Stone Kidney Cystoscopy Performed by: Sanam Avilez APRN, C.N.P. Authorized by: Sanam Avilez APRN C.N.P. Care team members present 1. Sanam Avilez APRN C.N.P. 2. Zoila Dickerson R.N. IMPRESSION negative cystoscopy Additional procedures performed: cystoscopy and stent removal PROCEDURE DETAILS Urethra (female): Normal: yes Sphincter: Characteristic: coapting Bladder: Normal: yes Ureteral stent removed: Side performed: Left Removal: simple Utilizing grasping forceps ureteral stent is removed in its entirety without complication. The patient tolerated this well. Blue light imaging agent used: no A flexible cystoscope was inserted through the [...] a procedural pause. PRE-PROCEDURE DETAILS Procedure purpose: Therapeutic Indications: Left ureteral stent removal Appropriate hand hygiene, gown, cap, mask, protective eyewear, sterile gloves, skin preparation, sterile drape, and strict aseptic technique were utilized as applicable for the procedure.: yes Site preparation: Povidone-iodine SEDATION / ANESTHESIA Anesthesia method: topical application Topical application type: lidocaine POST-PROCEDURE DETAILS Procedure completed successfully: yes Complications: no apparent complications COMMENTS Results from stone analysis are not yet available. We discussed options for prevent Ng further stone formation. She does not drink large amounts of fluid during the day, this has likely causative factor for stone formation. We discussed that she should drink 80-100 oz of fluid each day. She should eat a wide variety foods in moderation, paying attention to portion sizes. We discussed avoiding high-protein diet and avoiding begin protein sources that are soy based. When results of stone analysisare available, we will contact her and discuss next steps going forward. She should complete antibiotics as prescribed, continue Flomax for additional 2- 3 days. All questions answered today. D SALES CONSULTANT documented in this encounter Plan of Treatment Not on file documented as of this encounter Procedures Procedure Name Priority Date/Time Associated Diagnosis Comments ND CYSTHRSCPY RMVL FB/STENT SMPL Routine 09/18/2023 11:30 AM FIELD SALES CONSULTANT Stone Kidney documented in this encounter Results * ND CYSTHRSCPY RMVL FB/STENT SMPL (09/18/2023 11:30 AM FIELD SALES CONSULTANT) Narrative Sanam Avilez APRN, C.N.P. - 09/18/2023 11:30 AM FIELD SALES CONSULTANT Sanam Avilez APRN, C.N.P. ? 09/18/2023 12:44 [...] today. Sanam Avilez APRN, C.N.P. UROLOGY O NADIRERAELDER documented in this encounter Visit Diagnoses Diagnosis Stone Kidney- Primary documented in this encounter Care Teams Agricultural Scientist Relationship Specialty Start Date End Date Elsewhere, Pcp PCP - General Internal Medicine 09/11/23 documented as of this encounter
--- OUTSIDE RECORDS SUMMARY | 2023-10-18 09:19 | XMS_ITS | Clinical Summary ---
Author Name Unknown Organization [facility] Address [place], [place] [address] Care Team Providers Care Pot Fluxer Name Role Phone Wandy Sterling MD Primary Care Provide r Allergies Active Allergy Reactions Criticality Noted Date Comments Shellfish Derived Vomiting 08/01/2023 Medications Medication Sig Dispensed Refills Start Date End Date Status cholecalciferol (VITAMIN D) 1,000 unit capsule Take 1 capsule by mouth once daily. 0 08/24/20 12 Active lisinopriL (PRINIVIL; ZESTRIL) 40 mg tabletIndications: Essential hypertension Take 1 Tablet (40 mg) by mouth once daily. 90 Tablet 3 10/20/19 23 Active triamterene-hydroc hlorothiazide, 37.5-25 mg, (MAXZIDE-25) 37.5-25 mg tabletIndications: Essential hypertension Take 1 Tablet by mouth every morning. 90 Tablet 3 10/20/19 23 Active FLUoxetine (PROZAC) 40 mg capsuleIndications :Major depressive disorder, recurrent episode, mild (HC) Take 2 Capsules (80 mg) by mouth every morning. 180 Capsule 3 10/20/19 23 Active tamsulosin (FLOMAX) 0.4 mg capsuleIndications :Renal calculus, left Take 1 Capsule (0.4 mg) by mouth once daily after a meal. 30 Capsule 1 08/23/20 23 Active rosuvastatin (CRESTOR) 10 mg tabletIndications: Hyperlipidemia, unspecified hyperlipidemia type TAKE 1 TABLET BY MOUTH EVERYDAY AT BEDTIME 90 Tablet 2 09/08/20 23 Active oxyCODONE (ROXICODONE) 5 mg immediate release tabletIndications: S/P ureteral stent placement,Left flank pain Take 1 Tablet (5 mg) by mouth every 6 hours if needed for Pain. 12 Tablet 0 09/13/20 23 Active omeprazole (PRILOSEC) 40 mg Delayed-Release capsuleIndications :Chronic GERD TAKE 1 CAPSULE BY MOUTH EVERY DAY BEFORE A MEAL 90 Capsule 3 10/07/20 23 Active gabapentin (NEURONTIN) 100 mg capsuleIndications :Lumbar radiculopathy Take 3 Capsules (300 mg) by mouth two times daily. 60 Capsule 2 10/06/20 23 Active gabapentin (NEURONTIN) 100 mg capsuleIndications :Lumbar radiculopathy Take 2 capsules (200mg) in AM, 2 capsules (200mg) at noon, 2 capsules (200mg) at 6pm and 3 capsules (300mg) at bedtime. 180 Capsule 0 10/06/20 23 Active omeprazole (PRILOSEC) 40 mg Delayed-Release capsuleIndications :Chronic GERD Take 1 Capsule (40 mg) by mouth once daily before a meal. 60 Capsule 3 02/24/20 23 023 Discontinued HYDROcodone-acetam inophen ([place]) (7.5-325 mg/tablet)Indicati ons:Kidney stone on left side Take 1 Tablet by mouth every 4 hours if needed for Pain. Max acetaminophen dose: 4000mg in 24 hrs. 20 Tablet 0 08/25/20 23 023 Discontinued(*M ed complete/Regime n complete/Level of care change) cefuroxime axetil (CEFTIN) 250 mg tabletIndications: Kidney stone Take 1 Tablet (250 mg) by mouth two times daily for 7 days. 14 Tablet 0 09/13/20 23 023 gabapentin (NEURONTIN) 100 mg capsule Take 100 mg by mouth. 0 09/17/20 23 023 Discontinued(Re order (E-cancel not sent)) cefdinir (OMNICEF) 300 mg capsule Take 300 mg by mouth every 12 hours. 0 09/11/20 23 023 gabapentin (NEURONTIN) 100 mg capsuleIndications :Lumbar radiculopathy Take 1 Capsule (100 mg) by mouth two times daily. 60 Capsule 2 09/21/20 23 023 Discontinued(*M edication adjustment) predniSONE (DELTASONE) 10 mg tabletIndications: Lumbar radiculopathy Take 4 Tablets (40 mg) by mouth once daily with a meal for 3 days, THEN 3 Tablets (30 mg) once daily with a meal for 3 days, THEN 2 Tablets (20 mg) once daily with a meal for 3 days, THEN 1 Tablet (10 mg) once daily with a meal for 3 days. 30 Tablet 0 09/26/20 23 023 gabapentin (NEURONTIN) 100 mg capsuleIndications :Lumbar radiculopathy Take 1 Capsule (100 mg) by mouth two times daily. 60 Capsule 2 10/06/20 23 023 Discontinued(*M edication adjustment) Active Problems Problem Noted Date Diagnosed Date Ulcer of esophagus without bleeding 01/11/2018 Overview: EGD 01/2018 esophageal ulcer, repeat EGD in 3-6 months Left peroneal nerve palsy 12/08/2017 Small vessel disease, cerebrovascular 01/25/2017 Arthritis of knee 08/16/2011 Other and unspecified ovarian cyst 12/09/2008 Benign neoplasm of colon 04/04/2008 Overview: Colonoscopy 08/2013 normal repeat in 5 years Colonoscopy 10/2018 hyperplastic polyp, repeat in 5 years Major depressive disorder, recurrent episode, mi ld 04/04/2008 Unspecified essential hypertension 04/03/2007 Resolved Problems Problem Noted Date Diagnosed Date Resolved Date Pseudopolyposis of colon without complication 10/13/19 21 10/14/2021 S/P knee replacement 03/28/2011 011 halfway (current) use of anticoagulants 03/22/2011 08/16/2011 Overview: INR Goal Range: 1.5 - 2.5 Encounters Date Type Department Care Team Description 10/18/2023 Telephone [facility] [address] [place] [address] Wandy Sterling MD Questions (DISCUSS PATIENT) 10/17/2023 Telephone [facility] [address] [place] [address] Wandy Sterling MD Questions 10/13/2023 Telephone [facility] [address] [place] [address] Wandy Sterling MD Error-please disregard 10/13/2023 Telephone [facility] [address] [place] [address] Wandy Sterling MD Referral 10/12/2023 12:49 PM ASSEMBLY OPERATOR - 10/12/2023 11:59 PM ASSEMBLY OPERATOR Hospital Encounter [facility]EP [address] [place] [address] Wandy Sterling MD Beck, Elizabeth Haule, MD Prelesnik, Jane D Lumbar radiculopathy; Acute midline low back pain with left-sided sciatica 10/12/2023 Telephone [facility] [address] [place] [address] Wandy Sterling MD Results 10/12/2023 Travel 10/11/2023 11:15 AM ASSEMBLY OPERATOR Ancillary Procedure [facility] [address] [place] [address] 10/11/2023 Travel 10/11/2023 Telephone [facility] [address] [facility] [address] Wandy Sterling MD Prior Authorization (gabapentin (NEURONTIN) 100 mg capsule - PA NOT NEEDED) 10/06/[address] [facility] Scanner 1 scan: (1-Ord) [facility], MULTIPLE LAB RESULTS, 10/06/2023 10/06/2023 Refill [facility] [address] [place] [address] Wandy Sterling MD 10/06/2023 Telephone [facility] [address] [address] Wandy Sterling MD 10/06/2023 Transcribe Orders [facility] [address] [place] [address] Chang nSow MD 10/05/2023 Refill [facility] [address] [place] [address] Wandy Sterling MD Refill Request (Omeprazole) 10/04/2023 Telephone [facility] [address] [place] [address] Wandy Sterling MD Appointment (LUNBAR SPINE PAIN - Lumbar radiculopathy) 10/04/2023 Telephone [facility] [address] [place] [address] Wandy Sterling MD Appointment Request (LUNBAR SPINE PAIN - Lumbar radiculopathy) 09/30/2023 Orders Only [facility] Scanner 1 scan: (1-Ord) [facility], XR WRIST RT 2V, 09/30/2023 09/30/2023 Orders Only [facility] Scanner 1 scan: (1-Ord) [facility], RT WRIST, 09/30/2023 09/27/2023 Telephone [facility] [address], [place] [address] Wandy Sterling MD Stomach Flu 09/26/2023 Medical Messaging [facility] [address], [place] [address] Wandy Sterling MD Martha needs to talk with you 09/21/2023 9:45 AM ASSEMBLY OPERATOR Telemedicine [facility] [address], [place] [address] Milena Ramirez, PhD, LP Individual Therapy 09/19/2023 11:30 AM ASSEMBLY OPERATOR Office Visit [facility] [address], [place] [address] Wandy Sterling MD ER Follow up (Seen Monday for Left leg pain./Unable to support self to walk. /Getting the stent out helped with one source of pain.) 09/19/2023 Travel 09/19/2023 Orders Only [facility] Scanner 1 scan: (1-Ord) INCOMING RECORDS-MRI, [facility], 09/19/2023 09/19/2023 Orders Only [facility] Scanner 1 scan: (1-Ord) INCOMING RECORDS-LABS, [facility], 09/19/2023 09/17/2023 Orders Only [facility] Scanner 1 scan: (1-Ord) [facility], MRI LUMBAR SPINE W/O CONTRAST, 09/17/2023 09/13/2023 3:26 PM ASSEMBLY OPERATOR Anesthesia Event [facility] [address] [place] [address] Jaciel Perea, 09/13/2023 2:25 PM ASSEMBLY OPERATOR - 09/13/2023 3:49 PM ASSEMBLY OPERATOR Surgery [facility] [address] [place] [address] Gilson Smith MD LITHOTRIPSY URETEROSCOPY WITH LASER-LEFT 09/13/2023 1:17 PM ASSEMBLY OPERATOR - 09/13/2023 6:50 PM ASSEMBLY OPERATOR Hospital Encounter [facility] [address] [place] [address] Gilson Smith MD Kidney stone (Primary Dx); S/P ureteral stent placement; Left flank pain Discharge Disposition: Home Self Care 09/13/2023 Travel 09/07/2023 9:45 AM ASSEMBLY OPERATOR Ancillary Procedure [facility] [address] [place] [address] 09/07/2023 8:40 AM ASSEMBLY OPERATOR Office Visit [facility] [address] [place] [address] Wandy Sterling MD Follow Up (Stent for stone 08/23 and ER visit 08/28./Things have been getting worse. Left leg not holding her. /History of nerve damage 6 years ago left side waist to foot. Wonders if this is part of a the problem./Fell Monday,09/03. fell to the and was not able to get up. Had to call EMT, to get helped up. Knee caps re sore. Missed a very special concert./Has a fear of falling and life changing events./Needs pain control and ability to get some sleep./Does not like the oxycodone and how it makes her feel. ); Medication Management (Has been taking Tylenol and ibuprofen every 4 hours) 09/07/2023 Refill [facility] [address] [place] [address] Wandy Sterling MD Refill Request (Rosuvastatin) 09/07/2023 Travel 09/06/2023 9:00 AM ASSEMBLY OPERATOR Telemedicine [facility] [address] [place] [phone] Milena Ramirez, PhD, LP Individual Therapy 08/30/2023 10:30 AM ASSEMBLY OPERATOR Telemedicine [facility] [address] [place] [phone] Milena Ramirez, PhD, LP Individual Therapy 08/30/2023 Travel 08/28/2023 1:05 PM ASSEMBLY OPERATOR - 08/28/2023 6:00 PM ASSEMBLY OPERATOR Emergency [facility] Emergency Department [address] [place] [address] Pam Aden PA S/P ureteral stent placement (Primary Dx); Left flank pain Discharge Disposition: Home Self Care 08/28/2023 Orders Only [facility] [address] [facility] [address] Wandy Sterling MD <No scans attached> 08/28/2023 Travel 08/25/2023 Telephone [facility] [address] [facility] [place] [address] Wandy Sterling MD Medication Management (PAIN AND SLEEP MEDICATION ) 08/23/2023 12:16 PM ASSEMBLY OPERATOR Anesthesia Event [facility] [address] [place] [address] aSrwat Cordero MD Johnson, Sally K, BLU 08/23/2023 12:00 PM ASSEMBLY OPERATOR - 08/23/2023 1:19 PM ASSEMBLY OPERATOR Surgery [facility] [address] [place] [address] Harsh Manzano MD CYSTOSCOPY LEFT URETERAL STENT PLACEMENT, RETROGRADE 08/23/2023 10:25 AM ASSEMBLY OPERATOR - 08/23/2023 6:35 PM ASSEMBLY OPERATOR Hospital Encounter [facility] [address] [place] [address] Harsh Manzano MD Renal calculus, left (Primary Dx) Discharge Disposition: Home Self Care 08/22/2023 Travel 08/21/2023 3:40 PM ASSEMBLY OPERATOR Preop Visit [facility] [address] [place] [address] Vivi Jiang MD Preoperative Exam 08/21/2023 10:30 AM ASSEMBLY OPERATOR Telemedicine [facility] [address] [place] [address] Milena Ramirez, PhD, [facility] Trmt Plan 08/21/2023 Travel 08/19/2023 Travel 08/17/2023 9:30 AM ASSEMBLY OPERATOR Office Visit [facility] [address] [place] [address] Wandy Sterling MD Follow Up (Review results) 08/17/2023 Travel 08/16/2023 9:00 AM ASSEMBLY OPERATOR Orders Only [facility] [address] [place] [address] Lab, [place] [facility] 08/16/2023 8:30 AM ASSEMBLY OPERATOR Ancillary Procedure [facility] [address] [facility] [place] [address] 08/15/2023 9:00 AM ASSEMBLY OPERATOR Ancillary Procedure [facility] [address] [place] [address] 08/15/2023 Travel 08/10/2023 1:40 PM CDT Office Visit [facility] [address] [place] [address] Jaylene Pan PA Hip Pain/problem (Left hip pain extending into leg/foot) 08/10/2023 Travel 08/10/2023 Nurse Triage [facility] [address] [place] [address] Wandy Sterling MD Hip Pain/problem 08/04/2023 10:30 AM CDT Telemedicine [facility] [address] [place] [address] Milena Ramirez, PhD, LP Telehealth 08/04/2023 Travel 08/01/2023 10:05 AM CDT Office Visit [facility] [address] [place] [address] Wandy Sterling MD Abdominal Pain (Digestive issues, some has been ongoing, some a little worse. Discuss Omeprazole, helped with the vomiting but not the diarrhea. Pain last week ) 08/01/2023 Travel 07/24/2023 9:40 AM CDT Office Visit [facility] [address] [place] [address] Vivi Jiang MD Back Pain (Upper mid back pain, sudden and sharp lasted 15 min- radiated to chest) 07/24/2023 Travel 07/21/2023 10:30 AM CDT Telemedicine [facility] [address] [place] [address] Milena Ramirez, PhD, Telehealth 07/21/2023 Travel from Last 3 Months Immunizations Name Administration Dates Next Due AMB INFLUENZA IIV3 (AGE 65+ YRS) PF (Flu Clinic Only) 07/18/2018 AMB Influenza, IIV3 (Age >=3 years)(Flu Clinic Only) 08/05/2008 AMB Influenza, IIV4 PF (=>6 mos Flulaval,Fluzone Fluarix)(Flu Clinic Only) 07/17/2014 Amb Influenza, Inact (High-d ose) (Flu Clinic Only) 07/08/2016 COVID-19 vaccine (Moderna 100mcg/0.5mL) PF, MDV 06/28/2023 COVID-19 vaccine (Pfizer-Bio NTech 30mcg/0.3mL) PF, MDV 07/27/2021,01/01/2021,12/11/2020 Influenza Virus, Unspecified 06/28/2023, 08/18/2021,06/23/2020,2018,07/18/2018,07/18/2017,07/08/2016,1 12/01/2014,08/29/2013,06/22/2012, 011,08/03/2010,07/23/2009,08/05/2008,,09/06/2006,08/16/2005,09/02/20 03 Influenza, High-dose Inactivated 09/30/2015 Influenza, High-dose Quadriv alent Inactivated 07/04/2022 Influenza, IIV3 (Age >=3 years) 08/29/20 13,06/22/2012,08/16/2011,2009,07/23/2009,08/15/2007 Influenza, Inactivated AIIV4 (Age 65+ Years) Preserv Free 06/28/2023,08/18/2021,06/23/2020 Influenza, Inactivated IIV3 (Age 65+ Years) Preserv Free 09/10/2019,07/18/2017 Pneumococcal Poly,23-Valent (Pneumovax) 09/26/2017 Pneumococcal conj 13-Valent (Prevnar 13) 09/20/2016 Tdap 09/26/2017,12/06/2006 Zoster (Shingrix-RZV, recombinant) 10/15/2022, Family History Medical History Relation Name Comments Stroke Brother 2 Postoperative, age 56 Diabetes Father Heart Disease Father Other Maternal Grandfather Alzheim ers Cancer-breast Mother Marluz age 70's Stroke Mother Sanya Osteoporosis Sister 2 Age 52, spine f racture, scoliosis Anesthesia Problem No Family History Blood Disease No Family History Clotting disorder No Family History Relation Name Status Comments Brother 1 Herbert Alive Brother 2 Daughter 1 Lisa Alive Daughter 2 Ivanna Alive Father (Age 55) Maternal Grandfather (Age 80) Maternal Grandmother (Age 98) Mother Sanya Paternal Grandfather Paternal Grandmother Sister 1 Beyrl Alive Sister 2 Social History Tobacco Use Types Packs/Day Years Used Date Smoking Tobacco: Never Smokeless Tobacco: Never Tobacco Cessation:Counseling Given: Not Answered Alcohol Use Standard Drinks/Week Comments Yes 2 (1 standard drink = 0.6 oz pur e alcohol) one drink per week PHQ-2 Answer Date Recorded PHQ-2 TOTAL SCORE 6 08/04/2023 Social Connections Answer Date Recorded Frequency of Communication with Friends and Fami ly 0 09/07/2023 Financial Resource Strain Answer Date R ecorded Difficulty of Paying Living Expenses 3 09/07/2023 Difficulty of Paying Living Expenses Not on file 09/07/2023 Food Insecurity Answer Date Recorded Worried About Running Out of Food in the Last Ye ar 1 09/07/2023 Transportation Needs Answer Date Record ed Lack of Transportation (Medical) 1 09/07/2023 Housing Stability Answer Date Recorded Unable to Pay for Housing in the Last Year 1 09/07/2023 Sex and Gender Information Value Date Recorded Sex Assigned at Not on file Gender Identity Not on file Sexual Orientation Not on file Obstetrics History Para Term AB IAB SAB Ectopic Multiple Livin g Live Births 2 2 2 2 2 Date Outcome GA Total Labor Labor//3rd Weight Sex Delivery Anes PTL Mala A1 A5 Name Cl in Term Toshia ng Term Vag Toshia ng Last Filed Vital Signs Vital Sign Reading Time Taken Comments Blood Pressure 115/75 09/19/2023 11:47 AM ASSEMBLY OPERATOR Pulse 86 09/19/2023 11:47 AM ASSEMBLY OPERATOR Temperature 36.4 ??C (97.5 ??F) 09/13/2023 5:15 PM CS T Respiratory Rate 18 09/13/2023 6:15 PM ASSEMBLY OPERATOR Oxygen Saturation 98% 09/19/2023 11:47 AM ASSEMBLY OPERATOR Inhaled Oxygen Concentration - - Weight 103 kg (227 lb) 09/19/2023 11:47 AM ASSEMBLY OPERATOR Height 165.1 cm (5' 5) 08/28/2023 11:47 AM ASSEMBLY OPERATOR Body Mass Index 37.77 08/28/2023 11:47 AM ASSEMBLY OPERATOR Plan of Treatment Upcoming Encounters Date Type Department Care Team (Late st Contact Info) Description 10/19/2023 9:05 AM ASSEMBLY OPERATOR Office Visit [facility] [address] [place] [address] Wandy Sterling MD [address] [place] [address] 11/03/2023 10:30 AM ASSEMBLY OPERATOR Telemedicine [facility] [address] [place] [phone] Milena Ramirez, PhD, [address] [address] 11/08/2023 2:20 PM ASSEMBLY OPERATOR Office Visit [facility] [address] [facility] [address] [phone] Colette Gomez MD [address] [facility] [address] [address] 11/10/2023 10:30 AM ASSEMBLY OPERATOR Telemedicine [facility] [address] [place] [phone] Milena Ramirez, PhD, LP [address] [place] [address] Health Maintenance Due Date Last Done Comments COVID-19 vaccine series ( season) 2023 06/28/2023, 07/04/2022, 02/12/2022, Additional history exists Mammogram for age 45-75 10/20/2023 10/20/19 23, 10/18/2021, 10/13/2020, Additional history exists Medicare Wellness for age 65+ 10/20/2023, 10/14/2021, 10/13/2020, Additional history exists Colonoscopy through age 75 10/25/202310/25, 10/25/2018, 08/30/2013, Additional history exists Depression screening for age 12+ 08/04/2024 08/04/2023, 07/10/2023, 07/03/2023, Additional history exists BMI (ht and wt on same day) for age 18+ 08/21/2024 08/21/2023, 08/17/2023, 07/24/2023, Additional history exists Tetanus booster 09/26/2027 09/26/2017, 12/06/2006 Lipids for age 45-75 10/20/2027 10/20/2022, 10/14/2021, 10/13/2020, Additional history exists Pneumococcal series for age 65+ Completed 7, 09/20/2016 Tdap Completed 09/26/2017, 12/06/2006 DEXA/DXA scan for age 65+ Completed 10/16/2017, Hepatitis C screening for ag e 18-79 Completed 10/10/2019 Zoster (shingles) series for age 50+ Completed 10/15/2022, 08/05/2022 Influenza for age 65+ Completed 06/28/2023 , 06/28/2023, 07/04/2022, Additional history exists Medical Devices Implanted Type Area Juvenile Probation Officer Device Identifier Shelf Expiration Date Model / Serial / Lot Stent Uret [id number] Contour - [id number] Implanted:Qty: 1 on 08/23/2023 by Harsh Manzano MD at [facility] Left: Ureter [facility] 04/13/2026 [id number] / / [id number] Stent Uret [id number] Contour - [id number] Implanted:Qty: 1 on 09/13/2023 by Gilson Smith MD at [facility] Left: Ureter [facility] 03/28/2026 [id number] / / [id number] Procedures Procedure Name Priority Date/Time Associated Diagnosis Comments EMG PETER 10/12/2023 Lumbar radiculopathy Acute midline low back pain with left-sided sciatica XR SPINE LUMBAR 2 VIEWS FLEXION EXTENSION Routine 10/11/2023 11:48 AM ASSEMBLY OPERATOR Lumbar pain SCAN-LABORATORY REPORT 10/06/2023 12:00 AM ASSEMBLY OPERATOR SCAN-RADIOLOGY REPORT 09/30/2023 12:00 AM ASSEMBLY OPERATOR SCAN-RADIOLOGY REPORT 09/30/2023 12:00 AM ASSEMBLY OPERATOR SCAN CORRESP-LABORATORY RESULTS 09/19/2023 12:00 AM ASSEMBLY OPERATOR SCAN CORRESP-IMAGING 09/19/2023 12:00 AM ASSEMBLY OPERATOR SCAN-MRI INTERPRETATION 09/17/2023 12:00 AM ASSEMBLY OPERATOR STONE ANALYSIS Today 09/13/2023 4:48 PM ASSEMBLY OPERATOR PATH NON INSURANCE COORDINATOR CYTOLOGY Today 09/13/2023 4:34 PM ASSEMBLY OPERATOR PATH TISSUE EXAM Today 09/13/2023 4:31 PM ASSEMBLY OPERATOR SUPRAGLOTTIC-LMA Routine 09/13/2023 3:32 PM ASSEMBLY OPERATOR CYSTOSCOPY PLACEMENT URETERAL STENT Elective 09/13/2023 3:26 PM ASSEMBLY OPERATOR URINARY STONE Case Notes BIG C-[facility] Special Needs [id number] LITHOTRIPSY URETEROSCOPY WITH LASER Elective 09/13/2023 3:26 PM ASSEMBLY OPERATOR URINARY STONE Case Notes [facility] C-ARM Special Needs [id number] US PELVIS COMPLETE TV Routine 09/07/2023 11:49 AM ASSEMBLY OPERATOR Left ovarian cyst CT ABDOMEN PELVIS W STAT 08/28/2023 4 :03 PM ASSEMBLY OPERATOR URINALYSIS MICROSCOPIC STAT 08/28/2023 1:55 PM ASSEMBLY OPERATOR UA W/ SEDIMENT EXAM REFLEXED PER CRITERIA STAT 08/28/2023 1:55 PM ASSEMBLY OPERATOR BASIC METABOLIC PANEL STAT 08/28/2023 1:23 PM ASSEMBLY OPERATOR CBC W PLT NO DIFF STAT 08/28/2023 1:2 3 PM ASSEMBLY OPERATOR GLUCOSE METER Timed 08/23/2023 7:08 PM ASSEMBLY OPERATOR XR RETROGRADE PYELOGRAM W/WO KUB Routine 08/23/2023 12:45 PM ASSEMBLY OPERATOR ENDOTRACHEAL TUBE Routine 08/23/2023 12:40 PM ASSEMBLY OPERATOR ENDOTRACHEAL TUBE Routine 08/23/2023 12:40 PM ASSEMBLY OPERATOR ENDOTRACHEAL TUBE Routine 08/23/2023 12:40 PM ASSEMBLY OPERATOR CYSTOSCOPY PLACEMENT URETERAL STENT RETROGRADES Class E Urgent 08/23/2023 12:03 PM ASSEMBLY OPERATOR kidney stone POTASSIUM,ISTAT STAT 08/21/2023 4:10 PM ASSEMBLY OPERATOR Pre-op examination CT ABDOMEN PELVIS W PETER 08/16/2023 2 :39 PM ASSEMBLY OPERATOR Lumbar radiculopathy Severe back pain Abdominal mass, unspecified abdominal location CREATININE,ISTAT Routine 08/16/2023 8:57 AM ASSEMBLY OPERATOR Observation or evaluation for suspected condition XR SPINE LUMBAR 3 VIEWS Routine 08/15/2023 9:14 AM ASSEMBLY OPERATOR Lumbar radiculopathy from Last 3 Months Results * EMG (10/12/2023) Wandy Sterling MD NEUROLOGY ORD * XR SPINE LUMBAR 2 VIEWS FLEXION EXTENSION (10/11/2023 11:48 AM ASSEMBLY OPERATOR) Anatomical Region Laterality Modality Spine, LUMBAR SPINE Digital Radi ography 10/11/2023 11:4 8 AM ASSEMBLY OPERATOR Impressions 10/11/2023 2:52 PM ASSEMBLY OPERATOR Lateral Flexion-extension views of the lumbar spine were obtained. Grade 1 anterolisthesis of L4 on L5 is unchanged with flexion and extension. Grade 1 retrolisthesis of L1 on L2 is unchanged with flexion and extension. No dynamic instability. Mild loss of disc space height at L1-L2. Severe degenerative facet changes at L4-L5 and L5-S1. Narrative 10/11/2023 2:52 PM ASSEMBLY OPERATOR For Patients: As a result of the Cures Act, medical imaging exams and procedure reports are released immediately into your electronic medical record. You may view this report before your referring provider. If you have questions, please contact your health care provider. EXAM: XR SPINE LUMBAR 2 VIEWS FLEXION EXTENSION LOCATION: [facility] DATE: 10/11/2023 INDICATION: Lumbar Pain COMPARISON: CT abdomen and pelvis 08/28/2023. Procedure Note Michi Olmedo MD - 10/11/2023 For Patients: As a result of the Cures Act, medical imagingexams and procedure reports are released immediately into your electronicmedical record. You may view this report before your referring provider.If you have questions, please contact your health care provider. EXAM: XR SPINE LUMBAR 2 VIEWS FLEXION EXTENSION LOCATION: [facility] DATE: 10/11/2023 INDICATION: Lumbar Pain COMPARISON: CT abdomen and pelvis 08/28/2023. IMPRESSION: Lateral Flexion-extension views of the lumbar spine were obtained. Grade 1anterolisthesis of L4 on L5 is unchanged with flexion and extension. Grade1 retrolisthesis of L1 on L2 is unchanged with flexion and extension. Nodynamic instability. Mild loss of disc space height at L1-L2. Severedegenerative facet changes at L4-L5 and L5-S1. Chang Snow MD GENERAL IMAGING * SCAN-LABORATORY REPORT (10/06/2023 12:00 AM ASSEMBLY OPERATOR) Scanner OTHER * SCAN-RADIOLOGY REPORT (09/30/2023 12:00 AM ASSEMBLY OPERATOR) Only the most recent of2 resultswithin the time period is included. Anatomical Region Laterality Modality Other Scanner OTHER * SCAN CORRESP-LABORATORY RESULTS (09/19/2023 12:00 AM ASSEMBLY OPERATOR) Scanner OTHER * SCAN CORRESP-IMAGING (09/19/2023 12:00 AM ASSEMBLY OPERATOR) Anatomical Region Laterality Modality Other Scanner OTHER * SCAN-MRI INTERPRETATION (09/17/2023 12:00 AM ASSEMBLY OPERATOR) Anatomical Region Laterality Modality Other Scanner OTHER * STONE ANALYSIS (09/13/2023 4:48 PM ASSEMBLY OPERATOR) Source Comment 09/21/2023 8:06 PM ASSEMBLY OPERATOR [facility] Comment:Left Kidney Color Brown 09/21/2023 8:06 PM ASSEMBLY OPERATOR [facility] Size 3x3 mm 09/21/2023 8:06 PM ASSEMBLY OPERATOR [facility] Comment: Multiple pieces received. ??Dimensions of the largest piece reported. Weight 20 mg 09/21/2023 8:[address] [facility] ([facility]) Composition Comment 09/21/2023 8:[address] [facility] ([facility]) Comment:Percentage (Represen ts the % composition) Calcium Oxalate Monoh 60 % 09/21/2023 8:[address] [facility] ([facility]) Calcium Oxalate Dihyd 40 % 09/21/2023 8:[address] [facility] ([facility]) Comment Comment 09/21/2023 8:[address] [facility] ([facility]) Comment:Source Provided: Lef t Renal Pelvis Comment Comment 09/21/2023 8:[address] [facility] ([facility]) Comment: Calculus received wet. Wet calculi must be dried before analysis, which delays reporting of results. Leaving calculi wet (such as water, saline, blood, urine) may lead to changes in composition. Photo Comment 09/21/2023 8:[address] [facility] ([facility]) Comment:Photograph will foll ow under a separate cover Comment: Comment 09/21/2023 8:[address] [facility] ([facility]) Comment: Physician questions regarding Calculi Analysis contact [facility] at: [phone]. Please note: Comment 09/21/2023 8:[address] [facility] ([facility]) Comment: Calculi report will follow via computer, mail or digital media analyst delivery. Disclaimer: Comment 09/21/2023 8:[address] [facility] ([facility]) Comment: This test was developed and its performance characteristics determined by [facility]. ??It has not been cleared or approved by the Food and Drug Administration. Calculi (stone) CALCULUS SPECIMEN / Unknown Non-Blood / Unknown 09/13/2023 4:48 PM ASSEMBLY OPERATOR 09/13/2023 5:30 PM ASSEMBLY OPERATOR Narrative [facility] ([facility]) - 09/21/2023 8:06 PM ASSEMBLY OPERATOR Performed at: ??01 - [facility] [address] [place], [place] ??[id number] Nuclear Waste Process Operator: Huy Justin PhD, Phone: ??[phone] Gilson Smith MD SEND OUTS [facility]) [address] [place] [address], * PATH NON INSURANCE COORDINATOR CYTOLOGY (09/13/2023 4:34 PM ASSEMBLY OPERATOR) Case Report Medical Cytology Report ? Case: [id number] ? Authorizing Provider: ??Gilson Smith MD ? Collected: ? 09/13/2023 1634 ? Ordering Location: ? [facility] ?Received: ?09/13/2023 1719 ? Pathologist: ? Cora Arroyo MD ? Specimen: ?Left Renal Pelvis Brushing ? 09/15/2023 3:02 PM [facility] Final Diagnosis A) KIDNEY, LEFT, RENAL PELVIS, BRUSHIN. Negative for high grade urothelial carcinoma 2. Scant cellularity 09/15/2023 3:02 PM [facility] Comment According to the Leora system of reporting urinary tract cytology, the diagnosis of negative for high grade urothelial carcinoma indicates the sample is composed of benign urothelial cells and that cells that could remotely raise the suspicion of high grade urothelial carcinoma are absent. This does not and cannot exclude the possibility of a low grade urothelial neoplasm. 09/15/2023 3:02 PM [facility] Clinical Information History of left renal pelvis stone. ??Ureteroscopy demonstrated stone located in the renal pelvis, severe mucosal changes most consistent with chronic inflammation. Biopsy taken ([id number], severe chronic ureteritis with calcifications). 09/15/2023 3:02 PM [facility] Gross Description A) SOURCE: Renal pelvis brushing, left The specimen consists of a brush in 1 drop of fluid from which the following is prepared: ? -1 Papanicolaou stained ThinPrep slide 09/15/2023 3:02 PM [facility] Microscopic Description All slides were reviewed microscopically. Specimen adequacy: Adequate for interpretation. The microscopic appearance substantiates the diagnosis. 09/15/2023 3:02 PM [facility] Additional Information Cytology is screened at [facility] - [address] [address] and [facility] - [address] [place] [address] and [facility] - [address] [place] [address] Interpreted at [facility] - [address], [place] [address] 09/15/2023 3:02 PM [facility] Brushing (Left Renal Pelvis Brushing) 09/13/2023 4:34 PM ASSEMBLY OPERATOR 09/13/2023 5:19 PM ASSEMBLY OPERATOR Gilson Smith MD PATHOLOGY/CYTOLOGY [facility] [address] [place] [address], * PATH TISSUE EXAM (09/13/2023 4:31 PM ASSEMBLY OPERATOR) Case Report Pathology Report ?Case: [id number] ? Authorizing Provider: ??Gilson Smith MD ? Collected: ? 09/13/2023 1631 ? Ordering Location: ? [facility] ?Received: ?09/13/2023 1718 ? Pathologist: ? Ander Swanson MD ? Specimen: ?Biopsy, left renal pelvis biopsy ? 09/15/2023 1:11 PM ASSEMBLY OPERATOR [facility] Final Diagnosis A) LEFT RENAL PELVIS, BIOPSY: 1. Severe chronic ureteritis with calcifications 2. Negative for tumor and malignancy 09/15/2023 1:11 PM ASSEMBLY OPERATOR [facility] Clinical Information 73-year-old with a history of left renal pelvis stone. Ureteroscopy demonstrated stone located in the renal pelvis, severe mucosal changes most consistent with chronic inflammation. Biopsy taken. 09/15/2023 1:11 PM ASSEMBLY OPERATOR [facility] Gross Description A) Received in formalin, labeled with the patient's name and left renal pelvis biopsy, are 3 isaac-brown tissue fragments ranging between 0.1 and 0.2 cm in greatest dimension. ??The specimen is submitted entirely in 1 cassette. JAL 09/14/2023 ? 09/15/2023 1:11 PM ASSEMBLY OPERATOR [facility] Microscopic Description The final diagnosis is based on microscopic examination of appropriate sections of all specimens. 09/15/2023 1:11 PM ASSEMBLY OPERATOR [facility] Additional Information Interpreted at [facility] - [address] [place] [address] 09/15/2023 1:11 PM ASSEMBLY OPERATOR [facility] Biopsy BIOPSY SPECIMEN / Unknown 09/13/2023 4:31 PM ASSEMBLY OPERATOR 09/13/2023 5:18 PM ASSEMBLY OPERATOR Gilson Smith MD PATHOLOGY/CYTOLOGY [facility] [address] [place] [address], * Supraglottic (09/13/2023 3:32 PM ASSEMBLY OPERATOR) Narrative Devin Centeno CRNA - 09/13/2023 3:32 PM ASSEMBLY OPERATOR Devin Centeno CRNA ? 09/13/2023 ??3:32 PM Procedure: Supraglottic Patient location during procedure: OR Supraglottic Airway Properties Mask Ventilation: not attempted Type: i-gel Tube Size: 3 Insertion Attempts: 1 Placement Verification: auscultation and CO2 detection Assessment Assessment: atraumatic and dentition unchanged Jaciel Perea DO ANESTHESIA PX NOTE ORDERABLES * US PELVIS COMPLETE TV (09/07/2023 11:49 AM ASSEMBLY OPERATOR) Anatomical Region Laterality Modality Pelvis, OVARIES, UTERUS Ultrasou nd 09/07/2023 3:47 PM ASSEMBLY OPERATOR Narrative 09/07/2023 3:47 PM ASSEMBLY OPERATOR For Patients: ??As a result of the Cures Act, medical imaging exams and procedure reports are released immediately into your electronic medical record. ??You may view this report before your referring provider. ??If you have questions, please contact your health care provider. INDICATION: Left jaden pelvic/ovarian cyst identified on a CT August 10, 2023. 73 year-old postmenopausal female. Follow-up. TECHNIQUE: Transvaginal pelvic ultrasound. COMPARISON: Correlation is made with an abdominopelvic CT August 28, 2023. FINDINGS: There is a large left adnexal simple cyst without blood flow within this. No septations. No internal debris. This measures 8.9 x 6.4 x 5.9 cm. The right ovary is not seen. The uterus measures 6.1 x 5.2 x 3.2 cm. The endometrial stripe is heterogeneous and mildly thickened. This measures up to 8 mm. Hyperplasia or polyps are in the differential. Please correlate clinically. Hysterosonography or hysteroscopy may be helpful. No free pelvic fluid. IMPRESSION : Large simple cyst left adnexa measuring up to 8.9 cm likely of ovarian origin. Mildly thickened endometrial stripe measuring up to 8 mm. Hysterosonography or hysteroscopy may be helpful. Dictated by Tacho Hamlin MD @ Sep 07 2023 ??3:47PM (Electronically Signed) ?? Procedure Note Tacho Hamlin MD - 09/07/2023 For Patients: As a result of the Cures Act, medical imagingexams and procedure reports are released immediately into your electronicmedical record. You may view this report before your referring provider.If you have questions, please contact your health care provider. INDICATION: Left jaden pelvic/ovarian cyst identified on a CT August 10, 2023. 73year-old postmenopausal female. Follow-up. TECHNIQUE: Transvaginal pelvic ultrasound. COMPARISON: Correlation is made with an abdominopelvic CT August 28, 2023. FINDINGS: There is a large left adnexal simple cyst without blood flow within this.No septations. No internal debris. This measures 8.9 x 6.4 x 5.9 cm. The right ovary is not seen. The uterus measures 6.1 x 5.2 x 3.2 cm. The endometrial stripe isheterogeneous and mildly thickened. This measures up to 8 mm. Hyperplasiaor polyps are in the differential. Please correlate clinically.Hysterosonography or hysteroscopy may be helpful. No free pelvic fluid. IMPRESSION : Large simple cyst left adnexa measuring up to 8.9 cm likely of ovarianorigin. Mildly thickened endometrial stripe measuring up to 8 mm.Hysterosonography or hysteroscopy may be helpful. Dictated by Tacho Hamlin MD @ Sep 07 2023 3:47PM (Electronically Signed) Wandy Sterling MD US * CT Abdomen Pelvis w IV (Oral Contrast NO) (08/28/2023 4:03 PM ASSEMBLY OPERATOR) Only the most recent of2 resultswithin the time period is included. Anatomical Region Laterality Modality Abdomen, Pelvis, AORTA, LIVER, SPLEEN Computed Tomography 08/28/2023 4:44 PM ASSEMBLY OPERATOR Impressions 08/28/2023 4:44 PM ASSEMBLY OPERATOR 1. New left-sided double-J urinary stent in good position. Residual stone material in the left renal pelvis. Resolution of left-sided hydronephrosis though there is some persistent distention of left renal collecting system and less so the right renal collecting system. 2. No acute inflammatory process. 3. Persistent posterior left adnexal cystic mass likely of ovarian origin. Given the patient`s post postmenopausal state, consideration to excision is recommended. Please note that all CT scans at this facility use dose modulation, iterative reconstruction, and/or weight-based dosing when appropriate to reduce radiation dose to as low as reasonably achievable. Dictated by Tacho Hamlin MD @ 08/28/2023 4:44:27 PM (Electronically Signed) Narrative 08/28/2023 4:44 PM ASSEMBLY OPERATOR For Patients: ??As a result of the 21st Century Cures Act, medical imaging exams and procedure reports are released immediately into your electronic medical record. ??You may view this report before your referring provider. ??If you have questions, please contact your health care provider. INDICATION: Left flank pain. History of urinary tract calculi. Cystoscopy and left ureteral stent placement August 23, 2013. FINDINGS: There is a new left-sided double-J urinary stent in good position. There is fairly dense stone material within the left renal pelvis, image 76 series 2 measuring in aggregate 9 x 14 mm. No convincing evidence for stones along the course of the left ureter or within the urinary bladder. The previous identified left-sided hydronephrosis has essentially resolved or other still slight distention of the renal collecting system. Mild distention of the right renal collecting system may be chronic The uterus is unremarkable. There is a 7.4 x 6.7 cm cystic mass in the low left hemipelvis posterior to the uterus likely a left ovarian cyst previously measuring 7.8 x 6.4 cm with a small calcification at one edge. No right adnexal mass. Normal appendix. No evidence for diverticulitis. No evidence for colonic constipation. The liver, spleen, stomach and duodenum, and adrenal glands are within normal limits. Surgically absent gallbladder. Vascular calcification within a tortuous abdominal aorta and iliac arteries. Tiny fat containing umbilical hernia. 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 Multilevel degenerative facet arthropathy. Clear included lung bases. Procedure Note Tacho Hamlin MD - 08/28/2023 For Patients: As a result of the Cures Act, medical imagingexams and procedure reports are released immediately into your electronicmedical record. You may view this report before your referring provider.If you have questions, please contact your health care provider. INDICATION: Left flank pain. History of urinary tract calculi. Cystoscopy and leftureteral stent placement August 23, 2013. FINDINGS: There is a new left-sided double-J urinary stent in good position. Thereis fairly dense stone material within the left renal pelvis, image 76series 2 measuring in aggregate 9 x 14 mm. No convincing evidence forstones along the course of the left ureter or within the urinary bladder.The previous identified left-sided hydronephrosis has essentially resolvedor other still slight distention of the renal collecting system. Milddistention of the right renal collecting system may be chronic The uterus is unremarkable. There is a 7.4 x 6.7 cm cystic mass in the lowleft hemipelvis posterior to the uterus likely a left ovarian cystpreviously measuring 7.8 x 6.4 cm with a small calcification at one edge.No right adnexal mass. Normal appendix. No evidence for diverticulitis. No evidence for colonicconstipation. The liver, spleen, stomach and duodenum, and adrenal glands are withinnormal limits. Surgically absent gallbladder. Vascular calcificationwithin a tortuous abdominal aorta and iliac arteries. Tiny fat containingumbilical hernia. 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 Multileveldegenerative facet arthropathy. Clear included lung bases. IMPRESSION: 1. New left-sided double-J urinary stent in good position. Residual stonematerial in the left renal pelvis. Resolution of left-sided hydronephrosisthough there is some persistent distention of left renal collecting systemand less so the right renal collecting system. 2. No acute inflammatory process. 3. Persistent posterior left adnexal cystic mass likely of ovarian origin.Given the patient`s post postmenopausal state, consideration to excisionis recommended. Please note that all CT scans at this facility use dose modulation,iterative reconstruction, and/or weight-based dosing when appropriate toreduce radiation dose to as low as reasonably achievable. Dictated by Tacho Hamlin MD @ 08/28/2023 4:44:27 PM (Electronically Signed) Pam [place] CT * (ABNORMAL) URINALYSIS MICROSCOPIC (08/28/2023 1:55 PM ASSEMBLY OPERATOR) RBC >100(A) 0-2, None Seen /HPF 08/28/2023 2:20 PM ASSEMBLY OPERATOR [facility] WBC >100(A) 0-2, 3-5, None Seen /HPF 08/28/2023 2:20 PM ASSEMBLY OPERATOR [facility] BACTERIA Few None Seen, Rare, Few Bacteria/H PF 08/28/2023 2:20 PM ASSEMBLY OPERATOR [facility] EPITHELIAL CELLS Few None Seen, Few Epi/HPF 08/28/2023 2:20 PM ASSEMBLY OPERATOR [facility] HYALINE CASTS 3-5 0-2, 3-5 /LPF 08/28/2023 2:20 PM ASSEMBLY OPERATOR [facility] Urine URINE SPECIMEN / Unknown Non-Blood / Unknown 08/28/2023 1:55 PM ASSEMBLY OPERATOR 08/28/2023 2:06 PM ASSEMBLY OPERATOR Anw Ed Triage URINE [facility] [address] [place] [address], * (ABNORMAL) UA W/ SEDIMENT EXAM REFLEXED PER CRITERIA (08/28/2023 1:55 PM ASSEMBLY OPERATOR) COLOR Yellow Yellow Color 08/28/2023 2:20 PM ASSEMBLY OPERATOR [facility] CLARITY Cloudy(A) Clear Clarity 08/28/2023 2:20 PM ASSEMBLY OPERATOR [facility] SPECIFIC GRAVITY,URINE 1.020 1.010, 1.015, 1.020, 1.025 08/28/2023 2:20 PM ASSEMBLY OPERATOR [facility] PH,URINE 6.5 6.0, 7.0, 8.0, 5.5, 6.5, 7.5, 8.5 08/28/2023 2:20 PM ASSEMBLY OPERATOR [facility] UROBILINOGEN, QUALITATIVE Normal Normal EU/dl 08/28/2023 2:20 PM ASSEMBLY OPERATOR [facility] PROTEIN, URINE 100(A) Negative mg/dL 08/28/2023 2:20 PM ASSEMBLY OPERATOR [facility] GLUCOSE, URINE Negative Negative mg/dL 08/28/2023 2:20 PM ASSEMBLY OPERATOR [facility] KETONES,URINE Negative Negative mg/dL 08/28/2023 2:20 PM ASSEMBLY OPERATOR [facility] BILIRUBIN,URI NE Negative Negative 08/28/2023 2:20 PM ASSEMBLY OPERATOR [facility] OCCULT BLOOD,URINE Large(A) Negative 08/28/2023 2:20 PM ASSEMBLY OPERATOR [facility] NITRITE Negative Negative 08/28/2023 2:20 PM ASSEMBLY OPERATOR [facility] LEUKOCYTE ESTERASE Large(A) Negative 08/28/2023 2:20 PM ASSEMBLY OPERATOR [facility] Urine URINE SPECIMEN / Unknown Non-Blood / Unknown 08/28/2023 1:55 PM ASSEMBLY OPERATOR 08/28/2023 2:06 PM ASSEMBLY OPERATOR Anw Ed Triage URINE [facility] [address] [place] [address], * CBC W PLT NO DIFF (08/28/2023 1:23 PM ASSEMBLY OPERATOR) WHITE BLOOD COUNT 10.0 4.5 - 11.0 thou/cu mm 08/28/2023 2:01 PM ASSEMBLY OPERATOR [facility] RED BLOOD COUNT 4.75 4.00 - 5.20 mil/cu mm 08/28/2023 2:01 PM ASSEMBLY OPERATOR [facility] HEMOGLOBIN 13.9 12.0 - 16.0 g/dL 08/28/2023 2:01 PM ASSEMBLY OPERATOR [facility] HEMATOCRIT 42.6 33.0 - 51.0 % 08/28/2023 2:01 PM ASSEMBLY OPERATOR [facility] MCV 90 80 - 100 fL 08/28/2023 2:01 PM ASSEMBLY OPERATOR [facility] MCH 29.3 26.0 - 34.0 pg 08/28/2023 2:01 PM ASSEMBLY OPERATOR [facility] MCHC 32.6 32.0 - 36.0 g/dL 08/28/2023 2:01 PM ASSEMBLY OPERATOR [facility] RDW 13.3 11.5 - 15.5 % 08/28/2023 2:01 PM ASSEMBLY OPERATOR [facility] PLATELET COUNT 248 140 - 440 thou/cu mm 08/28/2023 2:01 PM ASSEMBLY OPERATOR [facility] MPV 10.5 6.5 - 11.0 fL 08/28/2023 2:01 PM ASSEMBLY OPERATOR [facility] NRBC 0.0 % 08/28/2023 2:01 PM ASSEMBLY OPERATOR [facility] ABS NRBC 0.0 thou /cu mm 08/28/2023 2:01 PM ASSEMBLY OPERATOR [facility] Blood BLOOD SPECIMEN / Unknown Venipuncture / Unknown 08/28/2023 1:23 PM ASSEMBLY OPERATOR 08/28/2023 1:45 PM ASSEMBLY OPERATOR Anw Ed Triage HEMATOLOGY [facility] [address] [place] [address], * (ABNORMAL) BASIC METABOLIC PANEL (08/28/2023 1:23 PM ASSEMBLY OPERATOR) SODIUM 138 136 - 145 mmol/L 08/28/2023 2:28 PM [facility] POTASSIUM 3.7 3.5 - 5.1 mmol/L 08/28/2023 2:28 PM [facility] CHLORIDE 101 98 - 107 mmol/L 08/28/2023 2:28 PM [facility] CO2,TOTAL 29 22 - 29 mmol/L 08/28/2023 2:28 PM [facility] ANION GAP 8 5 - 18 08/28/2023 2:28 PM [facility] GLUCOSE 103(H) 70 - 99 mg/dL 08/28/2023 2:28 PM [facility] CALCIUM 9.3 8.8 - 10.2 mg/dL 08/28/2023 2:28 PM [facility] BUN 22 8 - 23 mg/dL 08/28/2023 2:28 PM [facility] CREATININE 0.65 0.50 - 0.90 mg/dL 08/28/2023 2:28 PM [facility] BUN/CREAT RATIO 34(H) - 2:28 PM [facility] eGFR >90 >90 mL/min/1.7 3m2 08/28/2023 2:28 PM [facility] Comment:As of 2021, eG FR is calculated by the CKD-EPI creatinine equation without race adjustment. ??eGFR can be influenced by muscle mass, exercise, and diet. ??The reported eGFR is an estimation only and is only applicable if the renal function is stable. Blood BLOOD SPECIMEN / Unknown Venipuncture / Unknown 08/28/2023 1:23 PM ASSEMBLY OPERATOR 08/28/2023 1:45 PM ASSEMBLY OPERATOR Anw Ed Triage CHEMISTRY [facility] [address] [place] [address], [place] * (ABNORMAL) GLUCOSE METER (08/23/2023 7:08 PM ASSEMBLY OPERATOR) GLUCOSE METER 206(H) 65 - 100 mg/dL 08/23/2023 6:08 PM ASSEMBLY OPERATOR [facility] Blood BLOOD SPECIMEN / Unknown 08/23/2023 7:08 PM ASSEMBLY OPERATOR 08/23/2023 6:08 PM ASSEMBLY OPERATOR Harsh Manzano MD CHEMISTRY Performing Organization Address [facility] Co de Phone Number [facility] [address] [place] [phone], [place] * XR RETROGRADE PYELOGRAM W/WO KUB (08/23/2023 12:45 PM ASSEMBLY OPERATOR) Anatomical Region Laterality Modality KIDNEYS, Abdomen Digital Radiogr aphy Narrative 08/23/2023 12:19 PM ASSEMBLY OPERATOR 10 seconds fluoroscopy time was provided. ??See operative/procedure report for further information. Harsh Manzano MD GENERAL IM AGING * [facility] TUBE PR1, [facility] INSTRUMENT DISP PR10, HCHG STYLET PR1 (08/23/2023 12:40 PM ASSEMBLY OPERATOR) Narrative Mireya Ortiz CRNA - 08/23/2023 12:40 PM ASSEMBLY OPERATOR Mireya Ortiz CRNA ? 08/23/2023 12:40 PM Procedure: ETT Patient location during procedure: OR ETT Properties Mask Ventilation: not attempted Final Technique: video laryngoscopy, cricoid pressure and rapid sequence induction Type: straight Location: oral Cuffed: yes Tube Size: 7.0 mm Stylet: yes Laryngoscope Blade: Glidescope Blade Size: 4 Cormack-Lehane Grade View: 1 Insertion Attempts: 1 Placement Verification: auscultation, end tidal CO2 and symmetrical chest wall movement Assessment: pharynx clear, atraumatic and dentition unchanged Secured at: 22 Measured From: lips Difficulty: 0 (not difficult) Sarwat Cordero MD ANESTHESIA PX NOTE O RDERABLES * POTASSIUM,ISTAT (08/21/2023 4:10 PM ASSEMBLY OPERATOR) POTASSIUM, POCT 3.9 3.5 - 5.0 mmol/L 08/21/2023 4:14 PM ASSEMBLY OPERATOR [facility] Blood BLOOD SPECIMEN / Unknown 08/21/2023 4:10 PM ASSEMBLY OPERATOR 08/21/2023 4:14 PM ASSEMBLY OPERATOR Vivi Jiang MD CHEMISTRY Performing Organization Address City/[facility]/ZIP Co de Phone Number [facility] [address] [place] [address], [place] [phone] * (ABNORMAL) CREATININE,ISTAT (08/16/2023 8:57 AM ASSEMBLY OPERATOR) CREATININE, POCT 0.90 0.57 - 1.11 mg/dL 08/16/2023 8:59 AM ASSEMBLY OPERATOR [facility] Comment:Caution: Patients ta jerry Hydroxyurea have falsely increased iStat Creatinine results. Verify creatinine results ordering a Creatinine (42913.2) eGFR 68(L) >90 mL/min/1.7 3m2 08/16/2023 8:59 AM ASSEMBLY OPERATOR [facility] Comment:As of 2021, eG FR is calculated by the CKD-EPI creatinine equation without race adjustment. eGFR can be influenced by muscle mass, exercise, and diet. The reported eGFR is an estimation only and is only applicable if the renal function is stable. Blood BLOOD SPECIMEN / Unknown 08/16/2023 8:57 AM ASSEMBLY OPERATOR 08/16/2023 8:59 AM ASSEMBLY OPERATOR Wandy Sterling MD CHEMISTRY [facility] [address] [place] [address], [place] [phone] * XR SPINE LUMBAR 3 VIEWS (08/15/2023 9:14 AM ASSEMBLY OPERATOR) Anatomical Region Laterality Modality LUMBAR SPINE Computed Radiogr aphy 08/15/2023 10:2 2 AM ASSEMBLY OPERATOR Impressions 08/15/2023 10:22 AM ASSEMBLY OPERATOR Grade 1 degenerative spondylolisthesis of L4 on L5. Indeterminate 1.8 cm nodular density projecting to the left of the lumbar spine, not present on CT abdomen 10/29/2009. CT abdomen pelvis recommended for further evaluation. Dictated by Herbert Karimi MD @ Nov ??7 2022 10:22AM (Electronically Signed) ?? Narrative 08/15/2023 10:22 AM ASSEMBLY OPERATOR For Patients: ??As a result of the Cures Act, medical imaging exams and procedure reports are released immediately into your electronic medical record. ??You may view this report before your referring provider. ??If you have questions, please contact your health care provider. INDICATION: Pain TECHNIQUE: 3-view lumbar spine. COMPARISON: none FINDINGS: Mild leftward curvature lumbar spine. Postop changes of cholecystectomy. Ovoid density left retroperitoneum measuring 1.8 cm. Slight anterolisthesis of L4 on L5. Degenerative facet arthropathy L3 through S1. Discogenic spurring upper lumbar spine. No vertebral body compression fracture. Procedure Note Herbert Karimi MD - 08/15/2023 For Patients: As a result of the Cures Act, medical imagingexams and procedure reports are released immediately into your electronicmedical record. You may view this report before your referring provider.If you have questions, please contact your health care provider. INDICATION: Pain TECHNIQUE: 3-view lumbar spine. COMPARISON: none FINDINGS: Mild leftward curvature lumbar spine. Postop changes of cholecystectomy.Ovoid density left retroperitoneum measuring 1.8 cm. Slightanterolisthesis of L4 on L5. Degenerative facet arthropathy L3 through S1.Discogenic spurring upper lumbar spine. No vertebral body compressionfracture. IMPRESSION: Grade 1 degenerative spondylolisthesis of L4 on L5. Indeterminate 1.8 cm nodular density projecting to the left of the lumbarspine, not present on CT abdomen 10/29/2009. CT abdomen pelvis recommendedfor further evaluation. 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
--- OUTSIDE RECORDS SUMMARY | 2023-10-18 09:19 | XMS_ITS | Encounter Summary ---
Author Name Unknown Organization [facility] Address [address] [place] [address] Care Team Providers Care Sap Solutions Architect Name Role Phone Elsewhere, Pcp Primary Care Provider Unavailabl e Encounter Details Date Type Department Care Team (Late st Contact Info) Description 09/07/2023 Clinical Communication Department of Urology in [place], [place] [address] [phone] Gilson Smith M.D. [address] [phone] Social History Tobacco Use Types Packs/Day Years Used Date Smoking Tobacco: Never Assessed Nutrition Answer Date Recorded Nutrition: EVOO Fat [...] on filedocumented in this encounter Care Teams Sap Solutions Architect Relationship Specialty Start Date End Date Elsewhere, Pcp PCP - General Internal Medicine 09/11/23 documented as of this encounter
--- OUTSIDE RECORDS SUMMARY | 2023-10-18 09:19 | XMS_ITS | Encounter Summary ---
Author Name Unknown Organization [facility] Address [address] [place] [address] Care Team Providers Care Psychiatry Adult Physician Name Role Phone Elsewhere, Pcp Primary Care Provider Unavailabl e Reason for Referral * Outpatient (Routine) - Closed Specialty Diagnoses / Procedures Referred By Contac t Referred To Contact Diagnoses Lithotripsy Extracoporeal Shock Wave Status Post Procedures FL Fluoro Less Than 1 Hour Gilson Smith M.D. [address] [phone] [facility] Region Referral ID Status Reason Start Date Expiration Date Visits Re quested Visits Authorized [id number] Closed 09/13/2023 09/12/2024 1 1 L GUEST SERVICE AGENT Reason for Visit * Outpatient (Routine) - Closed Specialty Diagnoses / Procedures Referred By Contac t Referred To Contact Diagnoses Lithotripsy Extracoporeal Shock Wave Status Post Procedures FL Fluoro Less Than 1 Hour Gilson Smith M.D. [address] [phone] [facility] Referral ID Status Reason Start Date Expiration Date Visits Re quested Visits Authorized [id number] Closed 09/13/2023 09/12/2024 1 1 Encounter Details Date Type Department Care Team (Latest Contact Info) Description 09/13/2023 7:20 AM HOTEL GUEST SERVICE AGENT - 09/13/2023 11:59 PM [facility] Hospital Encounter Department of Radiology in [place], [place] [address] [place] [phone] Gilson Smith M.D. [address] [place] [phone] Lithotripsy Extracoporeal Shock Wave Status Post Discharge Disposition: Home or Self Care Social History Tobacco Use Types Packs/Day Years [...] on file documented as of this encounter Medications at Time of Discharge Medication Sig Dispensed Refills Start Date End Date cholecalciferol (VITAMIN D3) 25 mcg (1,000 Unit) capsule Take 1 capsule by mouth daily. 0 08/24/2012 FLUoxetine (PROzac) 40 mg capsule Take 80 mg by mouth daily. 0 10/20/2022 lisinopriL (PRINIVIL,ZESTRIL) 40 mg tablet Take 40 mg by mouth. 0 10/20/2022 omeprazole (PriLOSEC) [address] capsule Take 40 mg by mouth. 0 02/23/2023 oxyCODONE (ROXICODONE) 5 mg immediate release tablet Take 5 mg by mouth every 6 (six) hours as needed. 0 08/28/2023 rosuvastatin (CRESTOR) 10 mg tablet Take 10 mg by mouth daily. 0 10/20/2022 triamterene-hydroCHLO ROthiazide (MAXZIDE-25) 37.5-25 mg per tablet Take 1 tablet by mouth every morning. Holding due to hypotension 0 10/20/2022 cefdinir (OMNICEF) 300 mg capsule Take 1 capsule (300 mg total) by mouth every 12 (twelve) hours for 10 days. 20 capsule 0 09/11/2023 09/21/2023 documented as of this encounter Plan of Treatment Not on file documented as of this encounter Procedures Procedure Name Priority Date/Time Associated Diagnosis Comments FL FLUORO LESS THAN 1 HOUR RAD - Routine (most inpatients and all outpatients) 09/13/2023 4:48 PM HOTEL GUEST SERVICE AGENT Lithotripsy Extracoporeal Shock Wave Status Post documented in this encounter Results * FL Fluoro Less Than 1 Hour (09/13/2023 4:48 PM HOTEL GUEST SERVICE AGENT) Narrative [address] - 09/13/2023 5:07 PM HOTEL GUEST SERVICE AGENT This exam does not require a radiologist review or interpretation. Please refer to the patient's medical record on this date for clinical details. Gilson PEREZG FLUOROSCOPY PROC EDURES [address] documented in this encounter Visit Diagnoses Diagnosis Lithotripsy Extracoporeal Shock Wave Status Post documented in this encounter Care Teams Psychiatry Adult Physician Relationship Specialty Start Date End Date Elsewhere, Pcp PCP - General Internal Medicine 09/11/23 documented as of this encounter
--- OUTSIDE RECORDS SUMMARY | 2023-10-18 09:19 | XMS_ITS | Encounter Summary ---
Author Name Unknown Organization [facility] Address [address] [place] [address] Care Team Providers Care Service Assistant Name Role Phone Elsewhere, Pcp Primary Care Provider Unavailabl e Encounter Details Date Type Department Care Team (Late st Contact Info) Description 09/15/2023 Orders Only Department of Urology in [place], [place] [address] [place] [phone] Sanam Avilez, MINISTERIO, C.N.P. [address] [place] [phone] Social History Tobacco Use Types Packs/Day Years [...] on filedocumented in this encounter Care Teams Service Assistant Relationship Specialty Start Date End Date Elsewhere, Pcp PCP - General Internal Medicine 09/11/23 documented as of this encounter
--- OUTSIDE RECORDS SUMMARY | 2023-10-18 09:19 | XMS_ITS | Encounter Summary ---
Author Name Unknown Organization [facility] Address [address] [place] [address] Care Team Providers Care Medical Record Specialist Name Role Phone Elsewhere, Pcp Primary Care Provider Unavailabl e Encounter Details Date Type Department Care Team (Late st Contact Info) Description 09/11/2023 Orders Only Department of Urology in [place], [place] [address] [phone] Gilson Smith M.D. [address] [phone] Social History Tobacco Use Types Packs/Day Years [...] on filedocumented in this encounter Care Teams Medical Record Specialist Relationship Specialty Start Date End Date Elsewhere, Pcp PCP - General Internal Medicine 09/11/23 documented as of this encounter
--- OUTSIDE RECORDS SUMMARY | 2023-10-18 09:19 | XMS_ITS | Encounter Summary ---
Author Name Unknown Organization [facility] Address [address] [place] [address] Care Team Providers Care Senior Net Software Developer Name Role Phone Unavailable Primary Care Provider Unavailabl e Reason for Referral * Outpatient (Routine) - Closed Specialty Diagnoses / Procedures Referred By Shawn gomez Referred To Contact Urology Gilson Smith M.D. [address] [phone] [facility] Region Referral ID Status Reason Start Date Expiration Date Visits Re quested Visits Authorized [id number] Closed 09/07/2023 09/06/2026 1 1 ING ROBOT OPERATOR * Outpatient (Routine) - Closed Specialty Diagnoses / Procedures Referred By Shawn gomez Referred To Contact Family Medicine Diagnoses Nephrolithiasis Calcium Oxalate Gilson Smith M.D. [address] [place] [phone] [facility] Region Referral ID Status Reason Start Date Expiration Date Visits Re quested Visits Authorized [id number] Closed 09/07/2023 09/06/2024 1 1 ING ROBOT OPERATOR Reason for Visit * Reason Comments Consult Urolithiasis * Appointment Request (Routine) - Closed Specialty Diagnoses / Procedures Referred By Shawn gomez Referred To Contact Urology Referral ID Status Reason Start Date Expiration Date Visits Re quested Visits Authorized [id number] Closed 09/07/2023 09/06/2024 1 1 Encounter Details Date Type Department Care Team (Latest Contact Info) Description 09/07/2023 2:30 PM WELDING ROBOT OPERATOR Comprehensive Visit Department of Urology in [place], [place] [address] [place] [phone] Gilson Smith M.D. [address] [place] [phone] Nephrolithiasis Calcium Oxalate (Primary Dx) Social History Tobacco Use Types [...] on file documented as of this encounter Consult Notes * Gilson Smith M.D. - 09/07/2023 2:30 PM CST SUBJECTIVE CHIEF COMPLAINT / REASON FOR VISIT Chief Complaint Patient presents with Consult Urolithiasis REFERRING PROVIDER: Wandy Sterling MD HISTORY OF PRESENT ILLNESS This is a 73-year-old female was found to have a 14 mm stone in the left renal pelvis causing obstructive symptoms. A left ureteral stent was placed on August 23 for symptomatic relief. However, the patient is actually having increased symptoms. She is still having left flank pain, but now alsohas frequency and urgency related to urination. She is also concerned that all of this is causing some pain to radiate down her leg, contributing to weakness and balance issues. She is currently scheduled for a left percutaneous nephrolithotomy on October 12, 2023. She is hoping that something can be done earlier than that. MEDICAL HISTORY 1. Esophageal ulcer 2. Left peroneal nerve palsy 3. cerebrovascular disease 4. Benign neoplasm of the colon 5. History of depressive disorder 6. Hypertension, essential 7. Ovarian mass, evaluation pending 8. History of nephrolithiasis SURGICAL HISTORY 1. History of left ureteral stent placement 2. Cholecystectomy 3. section 4. Multiple colonoscopy and upper endoscopy 5. Arthroscopy left knee 6. Extracorporeal shockwave lithotripsy 2008 FAMILY HISTORY Cancer-breast Mother age 70's Stroke Mother Heart Disease Father Diabetes Father Osteoporosis Sister Age 52, spine fracture, scoliosis Stroke Brother Postoperative, age 56 Other Maternal Grandfather Alzheimer's Anesthesia Problem No Family History Blood Disease No Family History Clotting disorder No Family History SOCIAL HISTORY Social History Tobacco Use Smoking status: Not on file Smokeless tobacco: Not on file Substance Use Topics Alcohol use: Not on file CURRENT MEDICATIONS Current Outpatient Medications Medication Sig Dispense Refill cholecalciferol (VITAMIN D3) 25 mcg (1,000 Unit) capsule Take 1 capsule by mouth daily. cyclobenzaprine (FLEXERIL) 5 mg tablet Take 5 mg by mouth at bedtime as needed. FLUoxetine (PROzac) 40 mg capsule Take 80 mg by mouth. HYDROcodone-acetaminophen (NORCO) 7.5-325 mg per tablet Take 1 tablet by mouth every 4 (four) hoursas needed. lisinopriL (PRINIVIL,ZESTRIL) 40 mg tablet Take 40 mg by mouth. methocarbamoL (ROBAXIN) 500 mg tablet Take 500 mg by mouth. omeprazole (PriLOSEC) [address] capsule Take 40 mg by mouth. oxyCODONE (ROXICODONE) 5 mg immediate release tablet Take 5 mg by mouth every 6 (six) hours as needed. rosuvastatin (CRESTOR) 10 mg tablet Take 10 mg by mouth. sucralfate (CARAFATE) 1 gram tablet TAKE 1 TABLET (1 G) BY MOUTH FOUR TIMES DAILY BEFORE MEALS AND AT BEDTIME FOR 7 DAYS. tamsulosin (FLOMAX) 0.4 mg 24 hr capsule Take 0.4 mg by mouth. triamterene-hydroCHLOROthiazide (MAXZIDE-25) 37.5-25 mg per tablet Take 1 tablet by mouth every morning. Holding due to hypotension No current facility-administered medications for this visit. ALLERGIES/ CONTRAINDICATIONS Allergies Allergen Reactions Shellfish Derived GI intolerance OBJECTIVE PHYSICAL EXAMINATION General: Alert, oriented, using a walker Abdomen: Soft Skin: Normal DIAGNOSTICS CT scan of the abdomen and pelvis dated August 16, 2023, and August 28, 2023, along with a retrograde pyelogram on August 23, 2023 are all reviewed. I have reviewed the films and report. My comments are limited to the urinary tract. No solid renal masses. 1.5 cm left renal stone, this is located in the renal pelvis. It is causing obstruction, as identified on the first of the two CT scans. On the second one a stent is appropriately positioned. Some perinephric stranding is identified. Additional findings per radiology report. ASSESSMENT / PLAN 1. Left kidney stone, symptomatic Plan: The patient and I reviewed her films. Explained that standard treatment options for stones would include extracorporeal shockwave lithotripsy, ureteroscopy, and percutaneous nephrostolithotomy. We compared and contrasted all three options. I would argue that extracorporeal shockwave lithotripsy is not ideal given her stone size. I would be concerned that she may develop a Steinstrasse requiring additional treatment. We spent most of the time discussing the differences between ureteroscopy and percutaneous approach. I would argue that for an individual who already has a stent in place, and a stone that is less than 2 cm, ureteroscopy is the better option. It is less invasive, less costly andoffers nearly equivalent success rate. We discussed how the procedures carried out. This would be done on a same-day basis. We will try and schedule this in the near future. She will need preoperative medical clearance to include a physical exam and urine culture. We would see your approximately one week after surgery to remove the new indwelling stent. Literature regarding the procedures and stones are provided for the patient's benefit. Gilson Smith M.D. 09/07/23 3:24 PM WELDING ROBOT OPERATOR ING ROBOT OPERATOR documented in this encounter Plan of Treatment Scheduled Referrals Name Type Priority Associated Diagnoses Orde r Schedule Primary Care - ZAYRA consult (clinic) Outpatient Referral Routine Nephrolithiasis Calcium Oxalate Expected: 09/07/2023 (Approximate), Expires: 12/06/2024 Urology office visit (clinic) Outpatient Referral Routine Expected: 09/14/2023 (Approximate), Expires: 12/06/2024 documented as of this encounter Results * (ABNORMAL) Bacterial Culture, Aerobic + Susceptibility, Urine (09/07/2023 4:16 PM WELDING ROBOT OPERATOR) Urine Culture Mixed microbiota (A) 09/08/2023 4:11 PM WELDING ROBOT OPERATOR MKTO Urine (Urine, Midstream) 09/07/2023 4:16 PM WELDING ROBOT OPERATOR 09/07/2023 7:41 PM WELDING ROBOT OPERATOR Comment:Specimen Source Site : Urine Gilson Smith M.D. LAB MICROBIOLOGY - G ENERAL ORDERABLES [facility] [address] [place] [address], [facility] MKTO [facility] [place] [address] documented in this encounter Visit Diagnoses Diagnosis Nephrolithiasis Calcium Oxalate- Primary documented in this encounter
--- OUTSIDE RECORDS SUMMARY | 2023-10-18 09:19 | XMS_ITS | Encounter Summary ---
Author Name Unknown Organization [facility] Address [address] [place] [address] Care Team Providers Care Tactical Air Control Party Manager Name Role Phone Unavailable Primary Care Provider Unavailabl e Encounter Details Date Type Department Care Team (Latest Contact Info) Description 09/07/2023 3:36 PM SENIOR STRUCTURAL ENGINEER - 09/07/2023 11:59 PM [facility] Hospital Encounter Department of Laboratory Medicine in [place], [place] [address] [phone] Gilson Smith M.D. [address] [phone] Nephrolithiasis Calcium Oxalate Discharge Disposition: Home or Self Care Social [...] 10 mg by mouth daily. 0 10/20/2022 triamterene-hydroCHLOR Othiazide (MAXZIDE-25) 37.5-25 mg per tablet Take 1 tablet by mouth every morning. Holding due to hypotension 0 10/20/2022 cyclobenzaprine (FLEXERIL) 5 mg tablet Take 5 mg by mouth at bedtime as needed. 0 08/10/2023 09/11/2023 HYDROcodone-acetaminop hen (NORCO) 7.5-325 mg per tablet Take 1 tablet by mouth every 4 (four) hours as needed. 0 08/25/2023 09/11/2023 methocarbamoL (ROBAXIN) 500 mg tablet Take 500 mg by mouth. 0 08/28/20232022 sucralfate (CARAFATE) 1 gram tablet TAKE 1 TABLET (1 G) BY MOUTH FOUR TIMES DAILY BEFORE MEALS AND AT BEDTIME FOR 7 DAYS. 0 07/24/2023 09/11/2023 tamsulosin (FLOMAX) 0.4 mg 24 hr capsule Take 0.4 mg by mouth. 0 08/23/2023 09/11/2023 documented as of this encounter Plan of Treatment Not on file documented as of this encounter Procedures Procedure Name Priority Date/Time Associated Diagnosis Comments BACTERIAL CULTURE, AEROBIC + SUSC, URINE Routine 09/07/2023 4:16 PM SENIOR STRUCTURAL ENGINEER Nephrolithiasis Calcium Oxalate documented in this encounter Results * (ABNORMAL) Bacterial Culture, Aerobic + Susceptibility, Urine (09/07/2023 4:16 PM SENIOR STRUCTURAL ENGINEER) Urine Culture Mixed microbiota (A) 09/08/2023 4:11 PM SENIOR STRUCTURAL ENGINEER MKTO Urine (Urine, Midstream) 09/07/2023 4:16 PM SENIOR STRUCTURAL ENGINEER 09/07/2023 7:41 PM SENIOR STRUCTURAL ENGINEER Comment:Specimen Source Site : Urine Gilson Smith M.D. LAB MICROBIOLOGY - G ENERAL ORDERABLES [facility] [place] [address], [facility] MKTO [facility] [place] [address] [place] [address] documented in this encounter Visit Diagnoses Diagnosis Nephrolithiasis Calcium Oxalate documented in this encounter
--- OUTSIDE RECORDS SUMMARY | 2023-10-18 09:20 | XMS_ITS | Continuity of Care Document ---
Author Name Unknown Organization [facility] Address [address] [place] [address] Phone Care Team Providers Care Inspector Filters Name Role Phone Edy SOSA, PhD, Chang Unavailable Unavai lable Allergies, Adverse Reactions, Alerts Substance Reaction Status Criticality No Known Allergies Active No Inform ation Medications Medication Instructions Dosage Effective Dates (start - stop) Status Comments FLUOXETINE HCL (unknown strength) Not Available - Active VITAMIN D3 (unknown strength) Not Available - Active GABAPENTIN (unknown strength) Not Available - Active LISINOPRIL (unknown strength) Not Available - Active OMEPRAZOLE (unknown strength) Not Available - Active OXYCODONE HCL (unknown strength) Not Available - Active ROSUVASTATIN CALCIUM (unknown strength) Not Available - Active TRIAMTERENE-HYDROCHLORO THIAZID (unknown strength) Not Available - Active CALCIUM ACETATE (unknown strength) Not Available - Active Advance Directives Directive Yes / No Effective Date File Name No Information Encounters Encounter Description Practice Location Reason(s) For Visit Diagnoses Date Provider Providers Copied on Encounter [facility], [address], [place], [place], [id number], [place] tel:[phone] [facility] No Information Edy Downing. [facility], [address], [place], [address], [place]. tel:[phone] [facility], [address], [place], [place], [id number], [place] tel:[phone] [facility] [place] No Information [id number] Mary. [facility], [address], [place], [address], [place]. tel:[phone] Referring Provider: Wandy Sterling, [place] [address], [place], [address]. tel:[phone] Family History Family Member Type Diagnosis Age At Onset Mother Problem (finding) Stroke Father Problem (finding) Cardiovascular disease Mother Problem (finding) Cancer, unknown type Sister Problem (finding) Scoliosis Sister Problem (finding) Depression Father Problem (finding) Diabetes mellitus Payers Payer name Insurance type Covered republican ID Authoriza tion(s) Medicare MB [id number] [facility] [id number] [facility] [id number] Social History Type Description Quantity Date Captured Comments Alcohol Use Details Unknown Caffeine Use Details Unknown Tobacco Use Status No Information Smoking Status No Information Sex Female Chief Complaint And Reason For Visit No Information Reason For Referral Reason For Referral No Information Plan Of Treatment Date Type Action Status Appointment Martha Brooks History Of Present Illness Encounter Date Complaint History Of Prese nt Illness No Information Functional Status Date Functional Assessmen t No Information Instructions Date Instruction Additional Infor mation No Information Assessments Type Assessment Date No Information Patient Care Teams Name Effective Dates (start - stop) Status Members No Information
--- OUTSIDE RECORDS SUMMARY | 2023-10-18 09:20 | XMS_ITS | Continuity of Care Document ---
Author Name Unknown Address [address] [place] [address] Phone [phone] Organization [facility] Address [address] [place] [address] Care Team Providers Care Matching Machine Operator Name Role Phone [facility] Referring Provider Assessment Encounter Date Assessment Date Assessment LastModified by Organization Details LastModified Time 08/18/2023 08/18/2023 73F with large left kidney stone. Symptomatic. - Recommend PCNL to treat this large stone - if treatment delay due to scheduling, consider cysto/left ureteral stent prior - discussed post-op expectations; overnight hospital stay, risk of bleeding, repeat procedure, possible temporary stent veena Not available 08/18/2023 11:01:10 Plan of Treatment Reminders Order Date Submit Date Provider Last Modified By Organization Details Last Modified Time Details Appointments None record ed. Lab None record ed. Referral None record ed. Procedures None record ed. Surgeries None record ed. Imaging None record ed. Medication Orders None record ed. Patient TargetsNo targets recorded. Patient InstructionsNo instructions recorded. Reason for Referral Interventional Radiologist R vinod for Kidney stone LEFT PERCUTANEOUS NEPHROSTOMY TUBE PLACEMENT NEEDED FOR LEFT PERCUTANEOUS NEPHROLITHOTOMY (TO BE DONE IN THE OR ON THE SAME DAY). Referring Physician: Harsh Jolley, Urology, Encounter Date: 08/21/2023 Results Created Date Observation Date Name Description Value Unit Range Abnormal Flag LastModifiedBy Organization Detail LastModifiedTime 08/23/2008/23/2023 fluor oscop y (PROC ) No observ ation record ed. [email or web address] [facility] [address], [place], [address], 09/10/2023 01:59:42 Result Notes None recorded. Problems Name Status Onset Date Resolution Date Notes Provider Name and Address Organization Details Recorded Time Kidney stone Active 3 Harsh baxter MD, PHD [address] [facility],[address], [place], [address], [facility] 08/18/2023 10:39:59 Problem Notes None recorded. Procedures Surgical History Date Name Laterality Status Provider Name and Address Organization Details Recorded Time 8 ureteroscopy completed Radha Jason [facility], [facility] 08/18/2023 09:39:35 Imaging Results None recorded. Procedure Notes None recorded. Medical Equipment None Reported. Allergies No known drug allergies Medications Name Sig Start Date Stop Date Status Note LastModified by Organization Details LastModified Time fluoxetine 40 mg capsule TAKE 2 CAPSULES (80MG) BY MOUTH IN THE MORNING active Not Available Not Available No t Available sucralfate 1 gram tablet TAKE 1 TABLET (1 G) BY MOUTH FOUR TIMES DAILY BEFORE MEALS AND AT BEDTIME FOR 7 DAYS. active Not Available Not Available No t Available omeprazole 40 mg capsule,del ayed release TAKE 1 CAPSULE BY MOUTH EVERY DAY BEFORE A MEAL active Not Available Not Available No t Available triamterene 37.5 mg-hydrochl orothiazide 25 mg tablet TAKE 1 TABLET BY MOUTH EVERY DAY IN THE MORNING active Not Available Not Available No t Available methylpredn isolone 4 mg tablets in a dose pack TAKE BY MOUTH INSTRUCTE D PER PACKAGING : TAKE ALL TABLETS TOGETHER WITH BREAKFAST . active Not Available Not Available No t Available lisinopril 40 mg tablet TAKE 1 TABLET BY MOUTH EVERY DAY active Not Available Not Available No t Available fluoxetine 20 mg capsule TAKE 3 CAPSULES BY MOUTH DAILY. active Not Available Not Available No t Available oxycodone 5 mg tablet TAKE 1-2 TABLETS AT BEDTIME FOR PAIN/SLEE P active Not Available Not Available No t Available cyclobenzap rine 5 mg tablet TAKE 1 TABLET (5 MG) BY MOUTH EVERY DAY AT BEDTIME NEEDED FOR MUSCLE SPASM active Not Available Not Available No t Available rosuvastati n 10 mg tablet TAKE 1 TABLET BY MOUTH EVERYDAY AT BEDTIME active Not Available Not Available No t Available Paxlovid 300 mg (150 mg x 2)-100 mg tablets in a dose pack PLEASE SEE ATTACHED FOR DETAILED DIRECTION S 08/18 completed Not Available Not Available Not Available Vitals Date Recorded Body height Body mass index (BMI) Body weight Provider Name and Address Organization Details Last Updated DateTime 08/18/2023 165.1 cm 38.6 kg/m2 851772.43 g Radha prasad [facility] 08/18/2023 09:37:16 Social History Question Answer Notes LastModified by Organizat ion Details LastModified Time Tobacco Smoking Status Never Smoker Radha prasad [facility] 08/18/2023 09:38:48 What Is Your Level Of Alcohol Consumption? Moderate Information not available 08/18/2023 What Was The Date Of Your Most Recent Tobacco Screening? 08/18/2023 [email or web address] Information not available 08/18/2023 Sex: Female Functional Status None recorded. Mental Status None recorded. Family History Nothing Reported. Medical History Condition Response GERD/Acid Reflux Y Diabetes N High Blood Pressure Y Kidney Stones Y Depression N High Cholesterol Y Gynecological HistoryNo gynecological history recorded. Obstetrics History GPAL:G 0 P 0 0 0 0 Past Encounters Encounter ID Performer Location Encounter Start Date Encounter Closed Date Diagnosis/Indication [id number] Harsh Manzano MD, PHD [facility] [address] [place] [address] 08/18/2023 09:21:11 08/28/2023 13:58:22 Kidney stone Health Concerns Section Related Observation LastModified by Organization Detai ls LastModified Time None Recorded Concern Status LastModified by Organization Details LastModified Time None Recorded Payers Encounter Date Sequence Insurance Name Policy Number Policy Melvin Covered Member ID Melvin Member ID Guarantor Name 08/18/2023 2 [place] [id number] Martha L Postlethwaite [id number] Martha Postlethwaite 08/18/2023 1 [place] [employer] Martha L Postlethwaite [id number] Martha Postlethwaite Notes Date Note Type Note Provider Name and Address Organization Details Recorded Time 08/18/2023 text/html HPI Notes: 73F with kidney stones. Recent left sided back pain x 2 weeks. H/o stones in 2007. No fever or hematuria. Pain worse when laying down. Some improvement with oxycodone. 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
--- OUTSIDE RECORDS SUMMARY | 2023-10-18 09:20 | XMS_ITS | Clinical Summary ---
Author Name Unknown Organization [facility] Address [facility] [address] [place] [address] Care Team Providers Care Clinical Social Work Aide Name Role Phone Unavailable Primary Care Provider Unavailabl e Source Comments PLEASE NOTE, if this patient is a minor, it may be UNLAWFUL to discuss sensitive information that is contained in these records (such as FAMILY PLANNING, MENTAL HEALTH or SUBSTANCE ABUSE) with the minor patient's parent or other person without the patient's specific authorization.[facility] Social History Tobacco Use Types Packs/Day Years Used Date Smoking Tobacco: Never Assessed Sex and Gender Information Value Date Recorded Sex Assigned at Not on file Gender Identity Female 12/07/2020 12:50 PM PST Sexual Orientation Not on file Plan of Treatment Not on file
[2023-10-18] MEDS: SODIUM CHLORIDE 0.9 % (FLUSH) 10 ML SYRINGE IVF (09:48)
[2023-10-18] MEDS: LACTATED RINGERS 1000 ML 1,000 ML 100 ML IV (09:49)
--- NOTE | 2023-10-18 10:18 | W.ANESCHARGE ---
Anesthesia Charges Start Date/Time Anesthesia Start Date: 10/18/23 Anesthesia Start Time: 10:06 Stop Date/Time Anesthesia Stop Date: 10/18/23 Anesthesia Stop Time: 12:00 Summary Extremes of Age - Over 70 or under 1: MDA
--- NOTE | 2023-10-18 10:19 | W.PM.H&PU ---
History & Physical Update History & Physical Update H&P Reviewed and patient assessed: No changes noted
[2023-10-18] MEDS: CEFAZOLIN 2 GM in 0.9 % SODIUM CHLORIDE Mini-bag 100 ML IVPB (10:22)
--- NOTE | 2023-10-18 10:45 | CRLHL7_ITS ---
For Patients: As a result of the Century Cures Act, medical imaging exams and procedure reports are released immediately into your electronic medical record. You may view this report before your referring provider. If you have questions, please contact your health care provider. INDICATION: Reduction and fixation. TECHNIQUE: Intraoperative C-arm. IMPRESSION: 25.6 seconds of C-arm fluoroscopy. Two C-arm images frontal and lateral views of the right wrist intact plate and screw combination hardware with anatomic alignment. Dictated by Nish Arias MD @ 10/19/2023 10:24:08 AM (Electronically Signed)
[2023-10-18] MEDS: BUPIVACAINE 0.5% 30 ML INJECTION (11:29)
[2023-10-18] MEDS: LIDOCAINE 2%-EPI 1:200,000 20 ML INFILTRATI (11:29)
--- NOTE | 2023-10-18 11:30 | PM.ORPRC ---
Procedure Note Date of procedure: 10/18/23 Procedure: PREOPERATIVE DIAGNOSES: 1. Right distal radius fracture extra-articular dorsally angulated and displaced, acute, closed POSTOPERATIVE DIAGNOSES: 1. Right distal radius fracture extra-articular dorsally angulated and displaced, acute, closed NAME OF OPERATION: 1. Right distal radius open reduction with internal fixation of extra-articular dorsally angulated and displaced fracture 2. [id number] - intraoperative fluoroscopy up to 1 hour. SURGEON: Darshan Wright MD REGISTERED NURSE: Justine Price PA-C - Of note, an photographer assistant was critical for this case to aide in patient positioning, limb manipulation, tissue retraction, closure, and splinting. ANESTHESIA: General endotracheal anesthetic plus local IMPLANTS: Synthes dual column volar locking plate with 2.7 mm and 2.4 mm proximal nonlocking and locking screws, respectively. 2.4 mm distal locking pegs TOURNIQUET: 47 minutes at 225 torr. INDICATIONS: The patient is a pleasant, 73-year-old female who sustained a right wrist injury after a fall. They had difficulty with use of the extremity and deformity. Workup included xrays which revealed an unstable fracture. Given these findings, surgery was recommended to stablize the fracture. FINDINGS: Closed, dorsally angulated and displaced distal radius metaphyseal fracture. PROCEDURE: Following a thorough discussion of risks, benefits, and alternatives, consent was obtained and the operative extremity was marked. The patient was brought to the operating room and placed supine on the operating table. Induction of anesthesia was achieved. Appropriate time out was performed identifying proper patient, site and procedure. 2 g IV Ancef was administered within 1 hour of incision preoperatively. The right upper extremity was prepped and draped in the appropriate sterile fashion using ChloraPrep prep. The limb was exsanguinated and the tourniquet inflated. A longitudinal incision was made overlying the FCR tendon. Sharp incision through skin and subcutaneous tissue allowed identification of the FCR tendon. The superficial sheath was sharply divided, the tendon retracted ulnarly, and the deep fascial sheath also released. The FPL was retracted ulnarly and the pronator quadratus was sharply released from the radial border of the radius and subperiosteally elevated. The fracture was encountered and cleared of interposed periosteum / fracture hematoma. A reduction was performed and the appropriate plate selected. Temporary stabilization allowed C-arm fluoroscopy to confirm proper fracture reduction and plate positioning. The oblong hole was filled with a nonlocking screw followed by multiple distal locking pegs being careful to keep these in subchondral bone and extraarticular. Finally, the remaining proximal shaft screws were drilled and placed. Fluoroscopic imaging confirmed the improved position and showed the fracture to be stable. At this stage, the wound was thoroughly irrigated with normal saline. Closure performed with 0 Vicryl for the pronator quadratus, followed by deflation of the tourniquet. All major bleeding points were cauterized. Closure was then completed with 3-0 Vicryl for the subcutaneous, and 4-0 statafix for subcuticular closure. Dressings were applied along with a volar/dorsal splint. The patient was awoken from anesthesia and transferred to PACU in stable condition. PLAN: 1. Elevate operative extremity. 2. Ice, acetominphen or ibuprofen PRN. 3. Oxycodone for pain as needed. 4. Follow up with me in 10-16 days for wound check and splint removal.
--- NOTE | 2023-10-18 12:01 | P.ANES_ITS ---
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
[2023-10-18] MEDS: fentaNYL 100 MCG/2 ML inj 50 MCG IVP ×2 (12:08→12:21)
[2023-10-18] MEDS: HYDROmorphone 0.5 mg/0.5 ml inj IVP (12:13)
[2023-10-18] MEDS: OXYCODONE 5 MG TABLET PO (13:27)
[2023-10-18] MEDS: PROCHLORPERAZINE 5 MG/ML VIAL IV (15:00)
--- NOTE | 2023-10-18 15:39 | SUR.PHASEII ---
1530: Patient to restroom via wheelchair. Gait belt and assist of 2. Patient states she's too weak to get up using her walker. Dr. Wright notified of patient's continued complaints of dizziness, nausea, and vomiting. Creative/Art Director Alka states Med/Surg is full. PT called to assist patient with use of walker.
--- NOTE | 2023-10-18 16:04 | SUR.PHASEII ---
Caitlin PT in to assess patient. Patient ambulated 40 feet with gait belt and walker with stand by assist.
== END 2023-10-18 16:06 | disposition home or self-care (01) ==
PROVIDERS: PCP Family Medicine; Visit Provider Orthopaedic Surgery Sports Medicine
PROC: (CPT 25575; principal; 2023-10-18 10:45)
DX: S52.551A Other extraarticular fracture of lower end of right radius, initial encounter for closed fracture (principal)
CPT/HCPCS: 25607; 01830; 73110; 97161; 99100; A4580; A9270; C1713; J0665; J0690; J0780; J1100; J1170; J1885; J2371; J2405; J2704; J3010; J7120

== ENCOUNTER 2023-10-25 08:58 | Outpatient (CLI) | payer MEDICARE, BC, SELFPAY ==
--- OUTSIDE RECORDS SUMMARY | 2023-10-25 09:04 | XMS_ITS | Clinical Summary ---
Author Name Unknown Organization [facility] Address [address] [place] [address] Care Team Providers Care Early Childhood Specialist Name Role Phone Elsewhere, Pcp Primary Care Provider Unavailabl e Source Comments Patient records contain information from all sites at [facility]. For routine questions regarding patient records, call [phone] during business hours, M-F 8:00 AM - 5:00 PM Central Time. Record requests for emergency care only can be directed to [phone] at any time.[facility] Allergies Active Allergy Reactions Criticality Noted Date Comments Shellfish Derived GI intolerance 08/01/2023 Medications Medication Sig Dispensed Refills Start Date End Date Status cholecalciferol (VITAMIN D3) 25 mcg (1,000 Unit) capsule Take 1 capsule by mouth daily. 0 08/24/2012 Active FLUoxetine (PROzac) 40 mg capsule Take 80 mg by mouth daily. 0 10/20/2022 Active lisinopriL (PRINIVIL,ZESTRIL) 40 mg tablet Take 40 mg by mouth. 0 10/20/2022 Active omeprazole (PriLOSEC) [address] capsule Take 40 mg by mouth. 0 02/23/2023 Active oxyCODONE (ROXICODONE) 5 mg immediate release tablet Take 5 mg by mouth every 6 (six) hours as needed. 0 08/28/2023 Active rosuvastatin (CRESTOR) 10 mg tablet Take 10 mg by mouth daily. 0 10/20/2022 Active triamterene-hydroC HLOROthiazide (MAXZIDE-25) 37.5-25 mg per tablet Take 1 tablet by mouth every morning. Holding due to hypotension 0 10/20/2022 Active tamsulosin (FLOMAX) 0.4 mg 24 hr capsule Take 1 capsule (0.4 mg total) by mouth daily. 14 capsule 0 09/15/2023 Active gabapentin (NEURONTIN) 100 mg capsule Take 100 mg by mouth. 0 09/17/2023 Active Active Problems Problem Noted Date Diagnosed Date History Of Falling 09/11/2023 Encounters Date Type Department Care Team Description 10/23/2023 Clinical Communication Department of Obstetrics and Gynecology in [place], [place] [address] [place] [address] Prescheduling, Provider External Mass triage 10/13/2023 Clinical Communication Department of Spine in [place], [place] [address] [place] [address] Prescheduling, Provider 10/12/2023 Clinical Communication Department of Neurology in [address] [phone] Seven Awan M.D. Error 09/18/2023 11:30 AM SOLE POLISHER Office Visit Department of Urology in [address] [phone] Sanam Avilez APRN, C.N.P. Stone Kidney (Primary Dx) 09/15/2023 Orders Only Department of Urology in [place], [place] [address] [place] [phone] Sanam Avilez APRN, C.N.P. 09/13/2023 7:20 AM SOLE POLISHER - 09/13/2023 11:59 PM SOLE POLISHER Hospital Encounter Department of Radiology in [address] [phone] Gilson Smith M.D. Lithotripsy Extracoporeal Shock Wave Status Post Discharge Disposition: Home or Self Care 09/11/2023 9:30 AM SOLE POLISHER Office Visit Department of Family Medicine, [facility], in [address] [place] [address] Nataly Ferraro APRN, C.N.P., D.N.P. Preoperative Exam (Primary Dx); Nephrolithiasis Calcium Oxalate 09/11/2023 Orders Only Department of Urology in [address] [address] Gilson Smith M.D. 09/07/2023 3:36 PM SOLE POLISHER - 09/07/2023 11:59 PM SOLE POLISHER Hospital Encounter Department of Laboratory Medicine in [address] [phone] Gilson Smith M.D. Nephrolithiasis Calcium Oxalate Discharge Disposition: Home or Self Care 09/07/2023 2:30 PM SOLE POLISHER Comprehensive Visit Department of Urology in [address] [phone] Gilson Smith M.D. Nephrolithiasis Calcium Oxalate (Primary Dx) 09/07/2023 Clinical Communication Department of Urology in [address] [phone] Gilson Smith M.D. from Last 3 Months [...] Comments Blood Pressure 123/79 09/11/2023 9:37 AM SOLE POLISHER Pulse 85 09/11/2023 9:37 AM SOLE POLISHER Temperature 36.4 ??C (97.5 ??F) 09/11/2023 9 :37 AM SOLE POLISHER Respiratory Rate 18 09/11/2023 9:37 AM SOLE POLISHER Oxygen Saturation 97% 09/11/2023 9:3 7 AM SOLE POLISHER Room air Inhaled Oxygen Concentration - - Weight 103 kg (226 lb 10.1 oz) 09/11/20 9:37 AM SOLE POLISHER With shoes Height 166.3 cm (5' 5.47) 09/11/2023 9 :37 AM SOLE POLISHER With shoes Body Mass Index 37.17 09/11/2023 9:37 AM SOLE POLISHER Plan of Treatment Upcoming Encounters Date Type Department Care Team (Latest Contact Info) Description 10/31/2023 9:00 AM SOLE POLISHER Clinical Communication Virtual Review in [place], [place] [address] [place] [address] 11/01/2023 10:00 AM SOLE POLISHER Comprehensive Visit Department of Spine in [place], [place] [address] [place] [phone] Gerald Bermudez, COAL SAMPLE TESTER, C.N.P. [address] [place] [phone] Health Maintenance Due Date Last Done Comments Bone Density Scan (Osteoporo sis Screen) 1950 CT Colonography 1950 Cologuard 1950 Colonoscopy 1950 Colorectal Cancer Screening 1950 FIT 1950 Hepatitis C Screening 1950 COVID-19 Vaccine (2022- 4 season) 2023 06/28/2023, 07/04/2022, 02/12/2022, Additional [...] 09/26/2017, 12/06/2006 Pneumococcal vaccine (65+ years) Completed 09/26/20 17, 09/20/2016 Zoster Vaccines Completed 10/15/2022, 08/05/2022 Influenza Vaccine Completed 06/28/2023, , 07/04/2022, Additional history exists Medical Devices Implanted Type Area Print Support Specialist Device Identifier Shelf Expiration Date Model / Serial / Lot Stent Other Stent Other Kidney Procedures Procedure Name Priority Date/Time Associated Diagnosis Comments NC CYSTHRSCPY RMVL FB/STENT SMPL Routine 09/18/2023 11:30 AM SOLE POLISHER Stone Kidney OUTSIDE MR NEURO Routine 09/17/2023 3:10 PM SOLE POLISHER FL FLUORO LESS THAN 1 HOUR RAD - Routine (most inpatients and all outpatients) 09/13/2023 4:48 PM SOLE POLISHER Lithotripsy Extracoporeal Shock Wave Status Post BACTERIAL CULTURE, AEROBIC + SUSC, URINE Routine 09/07/2023 4:16 PM SOLE POLISHER Nephrolithiasis Calcium Oxalate OUTSIDE US BODY Routine 09/07/2023 10:05 AM SOLE POLISHER OUTSIDE CT BODY Routine 08/28/2023 3:55 PM SOLE POLISHER OUTSIDE FL GI Routine 08/23/2023 12:55 PM SOLE POLISHER OUTSIDE CT BODY Routine 08/16/2023 9:00 AM SOLE POLISHER from Last 3 Months Results * NC CYSTHRSCPY RMVL FB/STENT SMPL (09/18/2023 11:30 AM SOLE POLISHER) Narrative Sanam Avilez APRN, C.N.P. - 09/18/2023 11:30 AM SOLE POLISHER Sanam Avilez APRN, C.N.P. ? 09/18/2023 12:44 [...] wo con-Outside MR Neuro (09/17/2023 3:10 PM SOLE POLISHER) Narrative IIMS - 10/13/2023 3:33 PM SOLE POLISHER This order has been created and auto-finalized to support the import of outside images. If available, original interpretation can be found on the Media Tab in Chart Review, in Document Viewer, or as an image in QREADS. If a re-interpretation or overread is required please follow defined workflow. ?? Provider Not In System IMG MRI PROCEDURE S Performing Organization Address [facility] Co de Phone Number [facility] NA * FL Fluoro Less Than 1 Hour (09/13/2023 4:48 PM SOLE POLISHER) Narrative 8020 LOS SEMN - 09/13/2023 5:07 PM SOLE POLISHER This exam does not require a radiologist review or interpretation. Please refer to the patient's medical record on this date for clinical details. Gilson Smith M.D. IMG FLUOROSCOPY PROC EDURES Performing Organization Address [facility] Co de Phone Number 8020 LOS SEMN * (ABNORMAL) Bacterial Culture, Aerobic + Susceptibility, Urine (09/07/2023 4:16 PM SOLE POLISHER) Urine Culture Mixed microbiota (A) 09/08/2023 4:11 PM SOLE POLISHER MKTO Urine (Urine, Midstream) 09/07/2023 4:16 PM SOLE POLISHER 09/07/2023 7:41 PM SOLE POLISHER Comment:Specimen Source Site : Urine Gilson Smith M.D. LAB MICROBIOLOGY - G ENERAL ORDERABLES Performing Organization Address [facility] Co de Phone Number [facility] [address] [place] [address], [place] MKTO [facility] in [place] [address] [place] [address] * US PELVIS COMPLETE TV-Outside US Body (09/07/2023 10:05 AM SOLE POLISHER) 09/07/2023 10:0 2 AM SOLE POLISHER Narrative IIMS - 09/07/2023 11:09 AM SOLE POLISHER This order has been created and auto-finalized to support the import of outside images. If available, original interpretation can be found on the Media Tab in Chart Review, in Document Viewer, or as an image in QREADS. If a re-interpretation or overread is required please follow defined workflow. ?? Provider Not In System IMG US PROCEDURES Performing Organization Address [facility] de Phone Number [facility] NA * CT Abdomen Pelvis W-Outside CT Body (08/28/2023 3:55 PM SOLE POLISHER) Only the most recent of2 resultswithin the time period is included. Narrative IIMS - 09/07/2023 10:50 AM SOLE POLISHER This order has been created and auto-finalized to support the import of outside images. If available, original interpretation can be found on the Media Tab in Chart Review, in Document Viewer, or as an image in QREADS. If a re-interpretation or overread is required please follow defined workflow. ?? Provider Not In System IMG CT PROCEDURES Performing Organization Address [facility] Co de Phone Number [facility] NA * XR RETROGRADE PYELOGRAM W/WO KUB-Outside RF GI (08/23/2023 12:55 PM SOLE POLISHER) Narrative IIMS - 09/07/2023 10:49 AM SOLE POLISHER This order has been created and auto-finalized to support the import of outside images. If available, original interpretation can be found on the Media Tab in Chart Review, in Document Viewer, or as an image in QREADS. If a re-interpretation or overread is required please follow defined workflow. ?? Provider Not In System IMG FLUOROSCOPY P ROCEDURES Performing Organization Address [facility] Co de Phone Number [facility] NA from Last 3 Months Care Teams Early Childhood Specialist Relationship Specialty Start Date End Date Elsewhere, Pcp PCP - General Internal Medicine 09/11/23
--- OUTSIDE RECORDS SUMMARY | 2023-10-25 09:05 | XMS_ITS | Encounter Summary ---
Author Name Unknown Organization [facility] Address [address] [place] [address] Care Team Providers Care Director Family Name Role Phone Elsewhere, Pcp Primary Care Provider Unavailabl e Reason for Visit * Reason Onset Date Comments Error 10/12/2023 Encounter Details Date Type Department Care Team (Late st Contact Info) Description 10/12/2023 Clinical Communication Department of Neurology in [place], [place] [address] [phone] Seven Awan M.D. [address] [phone] Error Social History Tobacco Use [...] as of this encounter Plan of Treatment Upcoming Encounters Date Type Department Care Team (Latest Contact Info) Description 10/31/2023 9:00 AM CHIEF DIETITIAN Clinical Communication Virtual Review in [place], [place] [address] [place] [address] 11/01/2023 10:00 AM CHIEF DIETITIAN Comprehensive Visit Department of Spine in [place], [place] [address] [place] [address] Gerald Bermudez APRN, C.N.P. [address] [place] [address] documented as of this encounter Visit Diagnoses Not on filedocumented in this encounter Care Teams Director Family Relationship Specialty Start Date End Date Elsewhere, Pcp PCP - General Internal Medicine 09/11/23 documented as of this encounter
--- OUTSIDE RECORDS SUMMARY | 2023-10-25 09:05 | XMS_ITS | Encounter Summary ---
Author Name Unknown Organization [facility] Address [address] [place] [address] Care Team Providers Care Artillery Officer Name Role Phone Unavailable Primary Care Provider Unavailabl e Reason for Referral * Outpatient (Routine) - Closed Specialty Diagnoses / Procedures Referred By Shawn gomez Referred To Contact Urology Gilson Smith M.D. [address] [phone] [facility] Region Referral ID Status Reason Start Date Expiration Date Visits Re quested Visits Authorized [id number] Closed 09/07/2023 09/06/2026 1 1 DROPPER * Outpatient (Routine) - Closed Specialty Diagnoses / Procedures Referred By Shawn gomez Referred To Contact Family Medicine Diagnoses Nephrolithiasis Calcium Oxalate Gilson Smith M.D. [address] [place] [phone] [facility] Region Referral ID Status Reason Start Date Expiration Date Visits Re quested Visits Authorized [id number] Closed 09/07/2023 09/06/2024 1 1 DROPPER Reason for Visit * Reason Comments Consult Urolithiasis * Appointment Request (Routine) - Closed Specialty Diagnoses / Procedures Referred By Shawn gomez Referred To Contact Urology Referral ID Status Reason Start Date Expiration Date Visits Re quested Visits Authorized [id number] Closed 09/07/2023 09/06/2024 1 1 Encounter Details Date Type Department Care Team (Latest Contact Info) Description 09/07/2023 2:30 PM BUNG DROPPER Comprehensive Visit Department of Urology in [place], [place] [address] [place] [address] Gilson Smith M.D. [address] [place] [address] Nephrolithiasis Calcium Oxalate (Primary Dx) [...] benefit. Gilson Smith M.D. 09/07/23 3:24 PM BUNG DROPPER DROPPER documented in this encounter Plan of Treatment Upcoming Encounters Date Type Department Care Team (Latest Contact Info) Description 10/31/2023 9:00 AM BUNG DROPPER Clinical Communication Virtual Review in [place], [place] [address] [place] [address] 11/01/2023 10:00 AM BUNG DROPPER Comprehensive Visit Department of Spine in [address] [phone] Gerald Bermudez, DISABILITIES SERVICES OFFICER, C.N.P. [address] [place] [phone] Scheduled Referrals Name Type Priority Associated Diagnoses Orde r Schedule Primary Care - ZAYRA consult (clinic) Outpatient Referral Routine Nephrolithiasis Calcium Oxalate Expected: 09/07/2023 (Approximate), Expires: 12/06/2024 Urology office visit (clinic) Outpatient Referral Routine Expected: 09/14/2023 (Approximate), Expires: 12/06/2024 documented as of this encounter Results * (ABNORMAL) Bacterial Culture, Aerobic + Susceptibility, Urine (09/07/2023 4:16 PM BUNG DROPPER) Urine Culture Mixed microbiota (A) 09/08/2023 4:11 PM BUNG DROPPER MKTO Urine (Urine, Midstream) 09/07/2023 4:16 PM BUNG DROPPER 09/07/2023 7:41 PM BUNG DROPPER Comment:Specimen Source Site : Urine Gilson Smith M.D. LAB MICROBIOLOGY - G ENERAL ORDERABLES [facility] [address] [place] [address], [facility] MKTO [facility] in [place] [address] [place] [address] documented in this encounter Visit Diagnoses Diagnosis Nephrolithiasis Calcium Oxalate- Primary documented in this encounter
--- OUTSIDE RECORDS SUMMARY | 2023-10-25 09:05 | XMS_ITS | Encounter Summary ---
Author Name Unknown Organization [facility] Address [address] [place] [address] Care Team Providers Care Rules Examiner Name Role Phone Elsewhere, Pcp Primary Care Provider Unavailabl e Reason for Referral * Outpatient (Routine) - Closed Specialty Diagnoses / Procedures Referred By Shawn t Referred To Contact Diagnoses Stone Kidney Procedures Cystoscopy Sanam Avilez APRN, C.N.P. [address] [place] [address] [facility] Region Referral ID Status Reason Start Date Expiration Date Visits Re quested Visits Authorized [id number] Closed 09/18/2023 09/17/2024 1 1 E COORDINATOR Reason for Visit * Reason Comments Post-op Urolithiasis * Appointment Request (Routine) - Closed Specialty Diagnoses / Procedures Referred By Contac t Referred To Contact Urology Referral ID Status Reason Start Date Expiration Date Visits Re quested Visits Authorized [id number] Closed 09/07/2023 09/06/2024 1 1 Encounter Details Date Type Department Care Team (Late st Contact Info) Description 09/18/2023 11:30 AM VENUE COORDINATOR Office Visit Department of Urology in [place], [place] [address] [place] [address] Sanam Avilez APRN, C.N.P. [address] [phone] Stone Kidney (Primary Dx) Social History Tobacco [...] 2- 3 days. All questions answered today. E COORDINATOR documented in this encounter Plan of Treatment Upcoming Encounters Date Type Department Care Team (Latest Contact Info) Description 10/31/2023 9:00 AM VENUE COORDINATOR Clinical Communication Virtual Review in [place], [place] [address] [place] [address] 11/01/2023 10:00 AM VENUE COORDINATOR Comprehensive Visit Department of Spine in [address] [phone] Gerald Bermudez APRN, C.N.P. [address] [place] [phone] documented as of this encounter Procedures Procedure Name Priority Date/Time Associated Diagnosis Comments CA CYSTHRSCPY RMVL FB/STENT SMPL Routine 09/18/2023 11:30 AM VENUE COORDINATOR Stone Kidney documented in this encounter Results * CA CYSTHRSCPY RMVL FB/STENT SMPL (09/18/2023 11:30 AM VENUE COORDINATOR) Narrative Sanam Avilez APRN C.N.P. - 09/18/2023 11:30 AM VENUE COORDINATOR Sanam Avilez APRN C.N.P. ? 09/18/2023 12:44 PM Cystoscopy Performed by: Sanam Avilez APRN, C.N.P. Authorized by: Sanam Avilez APRN C.N.P. ?? Care team members present 1. [...] additional 2-3 days. ??All questions answered today. Santos Gleason APRNPChava UROLOGY O [facility] documented in this encounter Visit Diagnoses Diagnosis Stone Kidney- Primary documented in this encounter Care Teams Rules Examiner Relationship Specialty Start Date End Date Elsewhere, Pcp PCP - General Internal Medicine 09/11/23 documented as of this encounter
--- OUTSIDE RECORDS SUMMARY | 2023-10-25 09:05 | XMS_ITS | Encounter Summary ---
Author Name Unknown Organization [facility] Address [address] [place] [address] Care Team Providers Care Plastics Repairer Name Role Phone Elsewhere, Pcp Primary Care Provider Unavailabl e Reason for Visit * Reason Comments Pre-op Exam LITHOTRIPSY URETEROS COPY WITH LASER-LEFT- [place]- 2:30pmSGilson villafuerte MDSurgery - UrologyNPI: [id number] [address]&&[facility] [address] Phone: Bla: Other Patient would like t o talk about anesthesia concerns. * Appointment Request (Routine) - Closed Specialty Diagnoses / Procedures Referred By Shawn t Referred To Contact Family Medicine Referral ID Status Reason Start Date Expiration Date Visits Re quested Visits Authorized [id number] Closed 09/07/2023 09/06/2024 1 1 Encounter Details Date Type Department Care Team (Late Contact Info) Description 09/11/2023 9:30 AM ELECTRONICS ENGINEER Office Visit Department of Family Medicine, [facility], in [place], [place] [address] [place] [phone] Frankie-Nataly Moore APRN, C.N.P., D.N.P. [address] [phone] Preoperative Exam (Primary Dx); Nephrolithiasis Calcium Oxalate [...] Comments Blood Pressure 123/79 09/11/2023 9:37 AM ELECTRONICS ENGINEER Pulse 85 09/11/2023 9:37 AM ELECTRONICS ENGINEER Temperature 36.4 ??C (97.5 ??F) 09/11/2023 9 :37 AM ELECTRONICS ENGINEER Respiratory Rate 18 09/11/2023 9:37 AM ELECTRONICS ENGINEER Oxygen Saturation 97% 09/11/2023 9:3 7 AM ELECTRONICS ENGINEER Room air Inhaled Oxygen Concentration - - Weight 103 kg (226 lb 10.1 oz) 09/11/20 23 9:37 AM ELECTRONICS ENGINEER With shoes Height 166.3 cm (5' 5.47) 09/11/2023 9 :37 AM ELECTRONICS ENGINEER With shoes Body Mass Index 37.17 09/11/2023 9:37 AM ELECTRONICS ENGINEER documented in this encounter H&P Notes * Nataly Ferraro APRN, C.N.P., D.N.P. - 09/11/2023 9:30 AM ELECTRONICS ENGINEER SUBJECTIVE PREOPERATIVE HISTORY AND PHYSICAL CHIEF COMPLAINT/REASON FOR VISIT Martha Brooks is a 73 y.o. female who presents for evaluation of Pre- op Exam (LITHOTRIPSY URETEROSCOPY WITH LASER-LEFT- [place]- 2:30pm///Gilson Smith MD/Surgery - Urology/ /[address]/[place] [address]/ /Phone: /Fax: /)and Other (Patient would like to talk about anesthesia concerns. /). HISTORY OF PRESENT ILLNESS Martha Brooks is a very pleasant 73-year-old female who presents for preop evaluation for upcoming lithotripsy ureteroscopy with laser- orber, Davian 2:30 p.m. with Gilson Smith MD/surgery. Patient has a history of Left renal calculus- 1.5 cm left renal pelvis stone and had a urethral stent placed 08/23/23 at [facility] but had an unhappy experience with the surgeon there. The patient is now working with Dr. Gutiérrez at [place] for the upcoming surgery. She reports no [...] this plan. Patientrequested prescription be transferred to [place]. RISK ASSESSMENT Cardiovascular Risk: -Patient is able [...] above plan. Nataly Ferraro APRN, C.N.P., D.N.P. TRONICS ENGINEER documented in this encounter Plan of Treatment Upcoming Encounters Date Type Department Care Team (Latest Contact Info) Description 10/31/2023 9:00 AM ELECTRONICS ENGINEER Clinical Communication Virtual Review in [place], [place] 200 [place] [address] 11/01/2023 10:00 AM ELECTRONICS ENGINEER Comprehensive Visit Department of Spine in [address] [phone] Gerald Bermudez APRN, C.N.P. [address] [place] [phone] documented as of this encounter Visit Diagnoses Diagnosis Preoperative Exam- Primary Nephrolithiasis Calcium Oxalate documented in this encounter Care Teams Plastics Repairer Relationship Specialty Start Date End Date Elsewhere, Pcp PCP - General Internal Medicine 09/11/23 documented as of this encounter
--- OUTSIDE RECORDS SUMMARY | 2023-10-25 09:05 | XMS_ITS | Encounter Summary ---
Author Name Unknown Organization [facility] Address [address] [place] [address] Care Team Providers Care Electronic Warfare Technical Name Role Phone Elsewhere, Pcp Primary Care Provider Unavailabl e Encounter Details Date Type Department Care Team (Late Contact Info) Description 09/11/2023 Orders Only Department of Urology in [place], [place] [address] [phone] Gilson Smith M.D. [address] [phone] Social History Tobacco Use Types Packs/Day Years [...] (Latest Contact Info) Description 10/31/2023 9:00 AM BOILER ASSISTANT OPERATOR Clinical Communication Virtual Review in [place], [place] [address] [place] [address] 11/01/2023 10:00 AM BOILER ASSISTANT OPERATOR Comprehensive Visit Department of Spine in [place], [place] [address] [place] [address] Gerald Bermudez APRN, C.N.P. [address] [place] [address] documented as of this encounter Visit Diagnoses Not on filedocumented in this encounter Care Teams Electronic Warfare Technical Relationship Specialty Start Date End Date Elsewhere, Pcp PCP - General Internal Medicine 09/11/23 documented as of this encounter
--- OUTSIDE RECORDS SUMMARY | 2023-10-25 09:05 | XMS_ITS | Encounter Summary ---
Author Name Unknown Organization [facility] Address [address] [place] [address] Care Team Providers Care Counseling Services Manager Name Role Phone Elsewhere, Pcp Primary Care Provider Unavailabl e Encounter Details Date Type Department Care Team (Late st Contact Info) Description 09/07/2023 Clinical Communication Department of Urology in [place], [place] [address] [phone] Gilson Smith M.D. [address] [phone] Social History Tobacco Use Types Packs/Day Years [...] (Latest Contact Info) Description 10/31/2023 9:00 AM ASP NET PROGRAMMER Clinical Communication Virtual Review in [place], [place] [address] [place] [address] 11/01/2023 10:00 AM ASP NET PROGRAMMER Comprehensive Visit Department of Spine in [place], [place] [address] [place] [phone] KadleGerald shepard APRN, C.N.P. [address] [place] [address] documented as of this encounter Visit Diagnoses Not on filedocumented in this encounter Care Teams Counseling Services Manager Relationship Specialty Start Date End Date Elsewhere, Pcp PCP - General Internal Medicine 09/11/23 documented as of this encounter
--- OUTSIDE RECORDS SUMMARY | 2023-10-25 09:05 | XMS_ITS ---
Author Name Unknown Organization [facility] Address 200 [place] [address] Care Team Providers Care Wax Ball Molder Name Role Phone Unavailable Unavailable Unavailable Surgery Details Not on file Complications Check Surgery Details section. Procedure Estimated Blood Loss Check Surgery Details section. Procedure Findings Check Surgery Details section. Procedure Specimens Taken Check Surgery Details section.
--- OUTSIDE RECORDS SUMMARY | 2023-10-25 09:05 | XMS_ITS | Encounter Summary ---
Author Name Unknown Organization [facility] Address [address] [place] [address] Care Team Providers Care Ingot Header Name Role Phone Unavailable Primary Care Provider Unavailabl e Encounter Details Date Type Department Care Team (Latest Contact Info) Description 09/07/2023 3:36 PM MECHANISM ASSEMBLER - 09/07/2023 11:59 PM [facility] Hospital Encounter Department of Laboratory Medicine in [place], [place] [address] [phone] iGlson Smith M.D. [address] [phone] Nephrolithiasis Calcium Oxalate Discharge Disposition: [...] (Latest Contact Info) Description 10/31/2023 9:00 AM MECHANISM ASSEMBLER Clinical Communication Virtual Review in [place], [place] 200 [place] [address] 11/01/2023 10:00 AM MECHANISM ASSEMBLER Comprehensive Visit Department of Spine in [place], [place] [address] [place] [phone] Gerald Bermudez APRN, C.N.P. [address] [place] [phone] documented as of this encounter Procedures Procedure Name Priority Date/Time Associated Diagnosis Comments BACTERIAL CULTURE, AEROBIC + SUSC, URINE Routine 09/07/2023 4:16 PM MECHANISM ASSEMBLER Nephrolithiasis Calcium Oxalate documented in this encounter Results * (ABNORMAL) Bacterial Culture, Aerobic + Susceptibility, Urine (09/07/2023 4:16 PM MECHANISM ASSEMBLER) Urine Culture Mixed microbiota (A) 09/08/2023 4:11 PM MECHANISM ASSEMBLER JA Urine (Urine, Midstream) 09/07/2023 4:16 PM MECHANISM ASSEMBLER 09/07/2023 7:41 PM MECHANISM ASSEMBLER Comment:Specimen Source Site : Urine Gilson Smith M.D. LAB MICROBIOLOGY - G [facility] ORDERABLES [facility] [address] [place] [address], [facility] MKTO [facility] in [place] [address] [place] [address] documented in this encounter Visit Diagnoses Diagnosis Nephrolithiasis Calcium Oxalate documented in this encounter
--- OUTSIDE RECORDS SUMMARY | 2023-10-25 09:05 | XMS_ITS | Encounter Summary ---
Author Name Unknown Organization [facility] Address [address] [place] [address] Care Team Providers Care Fulfillment Coordinator Name Role Phone Elsewhere, Pcp Primary Care Provider Unavailabl e Reason for Visit * Reason Onset Date Comments External Mass triage 10/23/2023 Encounter Details Date Type Department Care Team (Latest Contact Info) Description 10/23/2023 Clinical Communication Department of Obstetrics and Gynecology in [place], [place] [address] [phone] Prescheduling, Provider External Mass triage Social History Tobacco Use Types Packs/Day Years [...] (Latest Contact Info) Description 10/31/2023 9:00 AM ENVIRONMENTAL HEALTH AND SAFETY MANAGER Clinical Communication Virtual Review in [place], [place] 200 [place] [address] 11/01/2023 10:00 AM ENVIRONMENTAL HEALTH AND SAFETY MANAGER Comprehensive Visit Department of Spine in [place], [place] [address] [place] [phone] Gerald Bermudez, RN TELE, C.N.P. [address] [place] [phone] documented as of this encounter Visit Diagnoses Not on filedocumented in this encounter Care Teams Fulfillment Coordinator Relationship Specialty Start Date End Date Elsewhere, Pcp PCP - General Internal Medicine 09/11/23 documented as of this encounter
--- OUTSIDE RECORDS SUMMARY | 2023-10-25 09:05 | XMS_ITS | Encounter Summary ---
Author Name Unknown Organization [facility] Address [address] [place] [address] Care Team Providers Care Leach Cell Operator Name Role Phone Elsewhere, Pcp Primary Care Provider Unavailabl e Encounter Details Date Type Department Care Team (Late st Contact Info) Description 09/15/2023 Orders Only Department of Urology in [place], [place] [address] [place] [phone] Sanam Avilez, MINISTERIO, C.N.P. [address] [phone] Social History Tobacco Use Types Packs/Day [...] (Latest Contact Info) Description 10/31/2023 9:00 AM INVESTIGATOR WELFARE Clinical Communication Virtual Review in [place], [place] [address] [place] [address] 11/01/2023 10:00 AM INVESTIGATOR WELFARE Comprehensive Visit Department of Spine in [place], [place] [address] [place] [address] Gerald Bermudez, MINISTERIO, C.N.P. [address] [place] [phone] documented as of this encounter Visit Diagnoses Not on filedocumented in this encounter Care Teams Leach Cell Operator Relationship Specialty Start Date End Date Elsewhere, Pcp PCP - General Internal Medicine 09/11/23 documented as of this encounter
--- OUTSIDE RECORDS SUMMARY | 2023-10-25 09:05 | XMS_ITS | Encounter Summary ---
Author Name Unknown Organization [facility] Address [address] [place] [address] Care Team Providers Care Welder Fitter Helper Name Role Phone Elsewhere, Pcp Primary Care Provider Unavailabl e Reason for Referral * Outpatient (Routine) - Closed Specialty Diagnoses / Procedures Referred By Contac t Referred To Contact Diagnoses Lithotripsy Extracoporeal Shock Wave Status Post Procedures FL Fluoro Less Than 1 Hour Gilson Smith M.D. [address] [phone] [facility] Region Referral ID Status Reason Start Date Expiration Date Visits Re quested Visits Authorized [id number] Closed 09/13/2023 09/12/2024 1 1 OL LUNCH MONITOR Reason for Visit * Outpatient (Routine) - Closed Specialty Diagnoses / Procedures Referred By Contac t Referred To Contact Diagnoses Lithotripsy Extracoporeal Shock Wave Status Post Procedures FL Fluoro Less Than 1 Hour Gilson Smith M.D. [address] [phone] [facility] Referral ID Status Reason Start Date Expiration Date Visits Re quested Visits Authorized [id number] Closed 09/13/2023 09/12/2024 1 1 Encounter Details Date Type Department Care Team (Latest Contact Info) Description 09/13/2023 7:20 AM SCHOOL LUNCH MONITOR - 09/13/2023 11:59 PM [facility] Hospital Encounter Department of Radiology in [place], [place] [address] [place] [address] Gilson Smith M.D. [address] [place] [phone] Lithotripsy Extracoporeal Shock Wave Status Post Discharge [...] (Latest Contact Info) Description 10/31/2023 9:00 AM SCHOOL LUNCH MONITOR Clinical Communication Virtual Review in [place], [place] [address] [place] [address] 11/01/2023 10:00 AM SCHOOL LUNCH MONITOR Comprehensive Visit Department of Spine in [place], [place] [address] [place] [phone] Gerald Bermudez APRN, C.N.P. [address] [place] [phone] documented as of this encounter Procedures Procedure Name Priority Date/Time Associated Diagnosis Comments FL FLUORO LESS THAN 1 HOUR RAD - Routine (most inpatients and all outpatients) 09/13/2023 4:48 PM SCHOOL LUNCH MONITOR Lithotripsy Extracoporeal Shock Wave Status Post documented in this encounter Results * FL Fluoro Less Than 1 Hour (09/13/2023 4:48 PM SCHOOL LUNCH MONITOR) Narrative 8020 LOS SEMN - 09/13/2023 5:07 PM SCHOOL LUNCH MONITOR This exam does not require a radiologist review or interpretation. Please refer to the patient's medical record on this date for clinical details. Gilson PEREZG FLUOROSCOPY PROC EDURES 8044 [address] SEMN documented in this encounter Visit Diagnoses Diagnosis Lithotripsy Extracoporeal Shock Wave Status Post documented in this encounter Care Teams Welder Fitter Helper Relationship Specialty Start Date End Date Elsewhere, Pcp PCP - General Internal Medicine 09/11/23 documented as of this encounter
--- OUTSIDE RECORDS SUMMARY | 2023-10-25 09:05 | XMS_ITS | Referral Summary ---
Author Name Unknown Organization [facility] Address [address] [place] [address] Care Team Providers Care Php Website Developer Name Role Phone Elsewhere, Pcp Primary Care Provider Unavailabl e Source Comments Patient records contain information from all sites at [facility]. For routine questions regarding patient records, call [phone] during business hours, M-F 8:00 AM - 5:00 PM Central Time. Record requests for emergency care only can be directed to [phone] at any time.[facility] Encounters Date Type Department Care Team Description 10/23/2023 Clinical Communication Department of Obstetrics and Gynecology in [place], [place] [address] [place] [phone] Prescheduling, Provider External Mass triage 10/13/2023 Clinical Communication Department of Spine in [place], [place] [address] [place] [address] Prescheduling, Provider 10/12/2023 Clinical Communication Department of Neurology in [place], [place] [address] [place] [address] Seven Awan M.D. Error 09/18/2023 11:30 AM ROLL TRUCKER Office Visit Department of Urology in [place], [place] [address] [place] [address] Sanam Avilez APRN, C.N.P. Stone Kidney (Primary Dx) 09/15/2023 Orders Only Department of Urology in [address] [phone] Sanam Avilez APRN, C.N.P. 09/13/2023 7:20 AM ROLL TRUCKER - 09/13/2023 11:59 PM ROLL TRUCKER Hospital Encounter Department of Radiology in [address] [phone] Gilson Smith M.D. Lithotripsy Extracoporeal Shock Wave Status Post Discharge Disposition: Home or Self Care 09/11/2023 Orders Only Department of Urology in [address] [phone] Gilson Smith M.D. 09/11/2023 9:30 AM ROLL TRUCKER Office Visit Department of Family Medicine, [facility], in [address] [phone] Nataly Ferraro APRN, C.N.P., D.N.PChava Preoperative Exam (Primary Dx); Nephrolithiasis Calcium Oxalate 09/07/2023 Clinical Communication Department of Urology in [address] [phone] Gilson Smith M.D. 09/07/2023 3:36 PM ROLL TRUCKER - 09/07/2023 11:59 PM ROLL TRUCKER Hospital Encounter Department of Laboratory Medicine in [address] [phone] Gilson Smith M.D. Nephrolithiasis Calcium Oxalate Discharge Disposition: Home or Self Care 09/07/2023 2:30 PM ROLL TRUCKER Comprehensive Visit Department of Urology in [address] [phone] Gilson Smith M.D. Nephrolithiasis Calcium Oxalate (Primary [...] Comments Blood Pressure 123/79 09/11/2023 9:37 AM ROLL TRUCKER Pulse 85 09/11/2023 9:37 AM ROLL TRUCKER Temperature 36.4 ??C (97.5 ??F) 09/11/2023 9 :37 AM ROLL TRUCKER Respiratory Rate 18 09/11/2023 9:37 AM ROLL TRUCKER Oxygen Saturation 97% 09/11/2023 9:3 7 AM ROLL TRUCKER Room air Inhaled Oxygen Concentration - - Weight 103 kg (226 lb 10.1 oz) 09/11/20 9:37 AM ROLL TRUCKER With shoes Height 166.3 cm (5' 5.47) 09/11/2023 9 :37 AM ROLL TRUCKER With shoes Body Mass Index 37.17 09/11/2023 9:37 AM ROLL TRUCKER Plan of Treatment Upcoming Encounters Date Type Department Care Team (Latest Contact Info) Description 10/31/2023 9:00 AM ROLL TRUCKER Clinical Communication Virtual Review in [place], [place] 200 [place] [address] 11/01/2023 10:00 AM ROLL TRUCKER Comprehensive Visit Department of Spine in [place], [place] [address] [place] [phone] Gerald Bermudez APRN, C.N.P. [address] [place] [phone] Medical Devices Implanted Type Area Director Of Intelligence Device Identifier Shelf Expiration Date Model / Serial / Lot Stent Other Stent Other Kidney Procedures Procedure Name Priority Date/Time Associated Diagnosis Comments [place] CYSTHRSCPY RMVL FB/STENT SMPL Routine 09/18/2023 11:30 AM ROLL TRUCKER Stone Kidney OUTSIDE MR NEURO Routine 09/17/2023 3:10 PM ROLL TRUCKER FL FLUORO LESS THAN 1 HOUR RAD - Routine (most inpatients and all outpatients) 09/13/2023 4:48 PM ROLL TRUCKER Lithotripsy Extracoporeal Shock Wave Status Post BACTERIAL CULTURE, AEROBIC + SUSC, URINE Routine 09/07/2023 4:16 PM ROLL TRUCKER Nephrolithiasis Calcium Oxalate OUTSIDE US BODY Routine 09/07/2023 10:05 AM ROLL TRUCKER OUTSIDE CT BODY Routine 08/28/2023 3:55 PM ROLL TRUCKER OUTSIDE FL GI Routine 08/23/2023 12:55 PM ROLL TRUCKER OUTSIDE CT BODY Routine 08/16/2023 9:00 AM ROLL TRUCKER from Last 3 Months Results * [place] CYSTHRSCPY RMVL FB/STENT SMPL (09/18/2023 11:30 AM ROLL TRUCKER) Narrative Sanam Avilez APRN, C.N.P. - 09/18/2023 11:30 AM ROLL TRUCKER Sanam Avilez APRN C.N.P. ? 09/18/2023 12:44 PM Cystoscopy Performed by: Sanam Avilez APRN C.N.P. Authorized by: Sanam Avilez APRN C.N.P. ?? Care team members present 1. Sanam Avilez APRN, C.N.P. 2. Zoila Dickreson R.N. IMPRESSION ?? negative cystoscopy Additional procedures [...] wo con-Outside MR Neuro (09/17/2023 3:10 PM ROLL TRUCKER) Narrative IIMS - 10/13/2023 3:33 PM ROLL TRUCKER This order has been created and auto-finalized to support the import of outside images. If available, original interpretation can be found on the Media Tab in Chart Review, in Document Viewer, or as an image in [email or web address]. If a re-interpretation or overread is required please follow defined workflow. ?? Provider Not In System IMG MRI PROCEDURE S Performing Organization Address [facility] Co de Phone Number IIAL NA * FL Fluoro Less Than 1 Hour (09/13/2023 4:48 PM ROLL TRUCKER) Narrative 8020 LOS SEMN - 09/13/2023 5:07 PM ROLL TRUCKER This exam does not require a radiologist review or interpretation. Please refer to the patient's medical record on this date for clinical details. Gilson Smith M.D. IMG FLUOROSCOPY PROC EDURES Performing Organization Address City/[facility] Co de Phone Number 8018 LOS SEMN * (ABNORMAL) Bacterial Culture, Aerobic + Susceptibility, Urine (09/07/2023 4:16 PM ROLL TRUCKER) Urine Culture Mixed microbiota (A) 09/08/2023 4:11 PM ROLL TRUCKER MKTO Urine (Urine, Midstream) 09/07/2023 4:16 PM ROLL TRUCKER 09/07/2023 7:41 PM ROLL TRUCKER Comment:Specimen Source Site : Urine Gilson Smith M.D. LAB MICROBIOLOGY - G ENERAL ORDERABLES Performing Organization Address [facility] de Phone Number [facility] [address] [place] [address], [facility] MKTO [facility] in [place] [address] [place] [address] * US PELVIS COMPLETE TV-Outside US Body (09/07/2023 10:05 AM ROLL TRUCKER) 09/07/2023 10:0 2 AM ROLL TRUCKER Narrative IIAL - 09/07/2023 11:09 AM ROLL TRUCKER This order has been created and auto-finalized to support the import of outside images. If available, original interpretation can be found on the Media Tab in Chart Review, in Document Viewer, or as an image in QREADS. If a re-interpretation or overread is required please follow defined workflow. ?? Provider Not In System IMG US PROCEDURES Performing Organization Address [facility] de Phone Number IIMS NA * CT Abdomen Pelvis W-Outside CT Body (08/28/2023 3:55 PM ROLL TRUCKER) Only the most recent of2 resultswithin the time period is included. Narrative IIAL - 09/07/2023 10:50 AM ROLL TRUCKER This order has been created and auto-finalized to support the import of outside images. If available, original interpretation can be found on the Media Tab in Chart Review, in Document Viewer, or as an image in QREADS. If a re-interpretation or overread is required please follow defined workflow. ?? Provider Not In System IMG CT PROCEDURES Performing Organization Address City/[facility] Co de Phone Number IIMS NA * XR RETROGRADE PYELOGRAM W/WO KUB-Outside RF GI (08/23/2023 12:55 PM ROLL TRUCKER) Narrative IIAL - 09/07/2023 10:49 AM ROLL TRUCKER This order has been created and auto-finalized to support the import of outside images. If available, original interpretation can be found on the Media Tab in Chart Review, in Document Viewer, or as an image in QREADS. If a re-interpretation or overread is required please follow defined workflow. ?? Provider Not In System IMG FLUOROSCOPY P ROCEDURES IIMS NA from Last 3 Months Care Teams Php Website Developer Relationship Specialty Start Date End Date Elsewhere, Pcp PCP - General Internal Medicine 09/11/23
--- OUTSIDE RECORDS SUMMARY | 2023-10-25 09:05 | XMS_ITS | Encounter Summary ---
Author Name Unknown Organization [facility] Address [address] [place] [address] Care Team Providers Care Force Dispatcher Name Role Phone Elsewhere, Pcp Primary Care Provider Unavailabl e Encounter Details Date Type Department Care Team (Late st Contact Info) Description 10/13/2023 Clinical Communication Department of Spine in [place], [place] [address] [place] [phone] Prescheduling, Provider Social History Tobacco Use Types [...] 10/13/2023 3:43 PM [facility] Questionnaire P SHEAR OPERATOR documented in this encounter Plan of Treatment Upcoming Encounters Date Type Department Care Team (Latest Contact Info) Description 10/31/2023 9:00 AM SCRAP SHEAR OPERATOR Clinical Communication Virtual Review in [place], [place] [address] [place] [address] 11/01/2023 10:00 AM SCRAP SHEAR OPERATOR Comprehensive Visit Department of Spine in [place], [place] [address] [place] [phone] Gerald Bermudez, MINISTERIO, C.N.P. [address] [place] [address] documented as of this encounter Visit Diagnoses Not on filedocumented in this encounter Care Teams Force Dispatcher Relationship Specialty Start Date End Date Elsewhere, Pcp PCP - General Internal Medicine 09/11/23 documented as of this encounter
--- OUTSIDE RECORDS SUMMARY | 2023-10-25 09:06 | XMS_ITS | Continuity of Care Document ---
Author Name Unknown Address [address] [place] [address] Phone [phone] Organization [facility] Address [address] [place] [address] Care Team Providers Care Software Administrator Name Role Phone [facility] Referring Provider Assessment Encounter Date Assessment [...] (PROC ) No observ ation record ed. [email or web address] [facility] [address] [place], [place], [address], 09/10/2023 01:59:42 Result Notes None recorded. Problems Name Status Onset Date Resolution Date Notes Provider Name and Address Organization Details Recorded Time Kidney stone Active 3 Harsh baxter MD, PHD [address] [facility],[address], [place], [address], [facility] 08/18/2023 10:39:59 Problem Notes None recorded. Procedures Surgical History Date Name Laterality Status Provider Name and Address Organization Details Recorded Time 8 ureteroscopy completed Radha [facility], [facility] 08/18/2023 09:39:35 Imaging Results None [...] Updated DateTime 08/18/2023 165.1 cm 38.6 kg/m2 940170.43 g Radha prasad [facility] 08/18/2023 09:37:16 Social History Question Answer Notes LastModified by Organizat ion Details LastModified Time Tobacco Smoking Status Never Smoker Radha prasad [facility] 08/18/2023 09:38:48 What Is Your Level Of Alcohol Consumption? Moderate [email or web address] Information not available 08/18/2023 What Was The Date Of Your Most Recent Tobacco Screening? 08/18/2023 [email or web address] Information not available 08/18/2023 Sex: Female Functional [...] Encounter Start Date Encounter Closed Date Diagnosis/Indication [id number] Harsh Manzano MD, PHD [facility] [address] [place] [address] 08/18/2023 09:21:11 08/28/2023 13:58:22 Kidney stone Health Concerns Section Related Observation LastModified by Organization Detai ls LastModified Time None Recorded Concern Status LastModified by Organization Details LastModified Time None Recorded Payers Encounter Date Sequence Insurance Name Policy Number Policy Melvin Covered Member ID Melvin Member ID Guarantor Name 08/18/2023 2 [place] [id number] Martha L Postlethwaite [id number] Martha Postlethwaite 08/18/2023 1 [place] [employer] Martha L Postlethwaite [id number] Martha Postlethwaite Notes Date Note Type [...] PSH: 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 08/18/2023 11:01:18 OBGyn Episode No OBEpisode recorded.
--- OUTSIDE RECORDS SUMMARY | 2023-10-25 09:06 | XMS_ITS | Continuity of Care Document ---
Author Name Unknown Organization [facility] Address [address] [place] [address] Phone Care Team Providers Care Appeals Board Referee Name Role Phone Edy SOSA, PhD, Chang [...] on Encounter [facility], [address], [place], [place], [id number], [place] tel:[phone] No Information Edy Downing. [facility] [place], [address], [place], [address], [place]. tel:[phone] [facility], [address], [place], [place], [id number], [place] tel:[phone] [facility] No Information Milton Mary. [facility], [address], [place], [address], [place]. tel:[phone] Referring Provider: Wandy Sterling [address], [place], [address]. tel:[phone] Family History Family Member Type Diagnosis Age At Onset Mother Problem (finding) Stroke Father Problem (finding) Cardiovascular disease Mother Problem (finding) Cancer, unknown type Sister Problem (finding) Scoliosis Sister Problem (finding) Depression Father Problem (finding) Diabetes mellitus Payers Payer name Insurance type Covered democrat ID Authoriza tion(s) Medicare [id number] [facility] [id number] [facility] [id number] Social History Type Description Quantity Date Captured Comments Sex Female Smoking Status No Information Chief Complaint And Reason For Visit No Information Reason For Referral Reason For Referral No Information Plan Of Treatment Date Type Action Status Appointment PostMartha monahan History Of Present Illness Encounter Date Complaint History Of Prese nt Illness No Information Functional Status Date Functional Assessmen t No Information Instructions Date Instruction Additional Infor mation No Information Assessments Type Assessment Date No Information Patient Care Teams Name Effective Dates (start - stop) Status Members No Information
--- OUTSIDE RECORDS SUMMARY | 2023-10-25 09:06 | XMS_ITS | Clinical Summary ---
Author Name Unknown Organization [facility] Address [place], [place] [address] Care Team Providers Care Seamer Elastic Band Name Role Phone Wandy Sterling MD Primary Care Provide r Allergies Active Allergy Reactions Criticality Noted Date Comments Shellfish Derived Vomiting 08/01/2023 Medications Medication Sig Dispensed Refills Start Date End Date Status cholecalciferol (VITAMIN D) 1,000 unit capsule Take 1 capsule by mouth once daily. 0 2 Active lisinopriL (PRINIVIL; ZESTRIL) 40 mg tabletIndications:E ssential hypertension Take 1 Tablet (40 mg) by mouth once daily. 90 Tablet 3 3 Active triamterene-hydroch lorothiazide, 37.5-25 mg, (MAXZIDE-25) 37.5-25 mg tabletIndications:E ssential hypertension Take 1 Tablet by mouth every morning. 90 Tablet 3 3 Active FLUoxetine (PROZAC) 40 mg capsuleIndications: Major depressive disorder, recurrent episode, mild (HC) Take 2 Capsules (80 mg) by mouth every morning. 180 Capsule 3 3 Active rosuvastatin (CRESTOR) 10 mg tabletIndications:H yperlipidemia, unspecified hyperlipidemia type TAKE 1 TABLET BY MOUTH EVERYDAY AT BEDTIME 90 Tablet 2 3 Active oxyCODONE (ROXICODONE) 5 mg immediate release tabletIndications:S /P ureteral stent placement,Left flank pain Take 1 Tablet (5 mg) by mouth every 6 hours if needed for Pain. 12 Tablet 0 12/06/202 3 Active omeprazole (PRILOSEC) 40 mg Delayed-Release capsuleIndications: Chronic GERD TAKE 1 CAPSULE BY MOUTH EVERY DAY BEFORE A MEAL 90 Capsule 3 3 Active gabapentin (NEURONTIN) 100 mg capsuleIndications: Lumbar radiculopathy Take 3 Capsules (300 mg) by mouth two times daily. 60 Capsule 2 3 Active gabapentin (NEURONTIN) 100 mg capsuleIndications: Lumbar radiculopathy Take 2 capsules (200mg) in AM, 2 capsules (200mg) at noon, 2 capsules (200mg) at 6pm and 3 capsules (300mg) at bedtime. 180 Capsule 0 3 Active celecoxib (CELEBREX) 200 mg capsuleIndications: Arthritis of knee Take 1 Capsule (200 mg) by mouth 2 times daily if needed for Pain (rare use). 60 Capsule 1 4 Active omeprazole (PRILOSEC) 40 mg Delayed-Release capsuleIndications: Chronic GERD Take 1 Capsule (40 mg) by mouth once daily before a meal. 60 Capsule 3 3 10/07/20 23 Discontinued tamsulosin (FLOMAX) 0.4 mg capsuleIndications: Renal calculus, left Take 1 Capsule (0.4 mg) by mouth once daily after a meal. 30 Capsule 1 3 10/19/19 24 Discontinued(*Me d complete/Regimen complete/Level of care change) gabapentin (NEURONTIN) 100 mg capsuleIndications: Lumbar radiculopathy Take 1 Capsule (100 mg) by mouth two times daily. 60 Capsule 2 3 10/06/20 23 Discontinued(*Me dication adjustment) predniSONE (DELTASONE) 10 mg tabletIndications:L umbar radiculopathy Take 4 Tablets (40 mg) by mouth once daily with a meal for 3 days, THEN 3 Tablets (30 mg) once daily with a meal for 3 days, THEN 2 Tablets (20 mg) once daily with a meal for 3 days, THEN 1 Tablet (10 mg) once daily with a meal for 3 days. 30 Tablet 0 3 10/08/20 23 gabapentin (NEURONTIN) 100 mg capsuleIndications: Lumbar radiculopathy Take 1 Capsule (100 mg) by mouth two times daily. 60 Capsule 2 3 10/06/20 23 Discontinued(*Me dication adjustment) Active Problems Problem Noted Date Diagnosed [...] 21 10/14/2021 S/P knee replacement 03/28/2011 011 residential (current) use of anticoagulants 03/22/2011 08/16/2011 Overview: INR Goal Range: 1.5 - 2.5 Encounters Date Type Department Care Team Description 10/24/2023 Telephone [facility] [address] [place] [address] Wandy Sterling MD Update ([facility] offered an appointment) 10/22/2023 Nurse Triage [facility] [address] [place] [address] Wandy Sterling MD Back Pain 10/20/2023 Telephone [facility] [address] [phone] Colette Gomez MD Referral 10/19/2023 9:05 AM SECURITY CONTROL CENTER OPERATOR Phone Office Visit [facility] [address] [place] [address] Wandy Sterling MD Follow Up (Discuss plan); Telehealth (No vitals taken) 10/19/2023 Telephone [facility] [address] [place] [phone] Colette Gomez MD 10/18/2023 Orders Only [facility] Scanner 1 scan: (1-Ord) [facility], XR WRIST RT MIN 3V, 10/18/2023 10/18/2023 Telephone [facility] [address] [place] [address] Wandy Sterling MD Questions (DISCUSS PATIENT) 10/17/2023 Telephone [facility] [address] [place] [address] Wandy Sterling MD Questions 10/13/2023 Telephone [facility] [address] [place] [address] Wandy Sterling MD Error-please disregard 10/13/2023 Telephone [facility] [address] [place] [address] Wandy Sterling MD Referral 10/12/2023 12:49 PM SECURITY CONTROL CENTER OPERATOR - 10/12/2023 11:59 PM SECURITY CONTROL CENTER OPERATOR Hospital Encounter [facility]/EEG/EP [address] [facility] [facility] [address] [place] [address] Wandy Sterling MD Beck, Elizabeth Haule, MD Prelesnik, Jane D Lumbar radiculopathy; Acute midline low back pain with left-sided sciatica 10/12/2023 Telephone [facility] [address] [place] [address] Wandy Sterling MD Results 10/12/2023 Travel 10/11/2023 11:15 AM SECURITY CONTROL CENTER OPERATOR Ancillary Procedure [facility] [address] [place] [address] 10/11/2023 Travel 10/11/2023 Telephone [facility] [address] [place] [address] Wandy Sterling MD Prior Authorization (gabapentin (NEURONTIN) 100 mg capsule - PA NOT NEEDED) 10/06/2023 Orders Only [facility] Scanner 1 scan: (1-Ord) [facility], MULTIPLE LAB RESULTS, 10/06/2023 10/06/2023 Refill [facility] [address] [place] [address] Wandy Sterling MD 10/06/2023 Telephone [facility] [address] [place] [address] Wandy Sterling MD 10/06/2023 Transcribe Orders [facility] [address] [facility] [address] [place] [address] Chang Snow MD 10/05/2023 Refill [facility] [address] [place] [address] Wandy Sterling MD Refill Request (Omeprazole) 10/04/2023 Telephone [facility] [address] [place] [address] Wandy Sterling MD Appointment (LUNBAR SPINE PAIN - Lumbar radiculopathy) 10/04/2023 Telephone [facility] [address] [place] [address] Wandy Sterling MD Appointment Request (LUNBAR SPINE PAIN - Lumbar radiculopathy) 09/30/2023 Orders Only [facility] Scanner 1 scan: (1-Ord) [facility], XR WRIST RT 2V, 09/30/2023 09/30/2023 Orders Only [facility] Scanner 1 scan: (1-Ord) [facility], RT WRIST, 09/30/2023 09/27/2023 Telephone [facility] [address] [place] [address] Wandy Sterling MD Stomach Flu 09/26/2023 Medical Messaging [facility] [address] [place] [address] Wandy Sterling MD Diana needs to talk with you 09/21/2023 9:45 AM SECURITY CONTROL CENTER OPERATOR Telemedicine [facility] [address] [place] [address] Milena Ramirez, PhD, LP Individual Therapy 09/19/2023 11:30 AM SECURITY CONTROL CENTER OPERATOR Office Visit [facility] [address] [place] [address] Wandy Sterling MD ER Follow up (Seen Monday for Left leg pain./Unable to support self to walk. /Getting the stent out helped with one source of pain.) 09/19/2023 Travel 09/19/2023 Orders Only [facility] Scanner 1 scan: (1-Ord) INCOMING RECORDS-MRI, [facility], 09/19/2023 09/19/2023 Orders Only [facility] Scanner 1 scan: (1-Ord) INCOMING RECORDS-LABS, [facility], 09/19/2023 09/17/2023 Orders Only [facility] Scanner 1 scan: (1-Ord) [facility], MRI LUMBAR SPINE W/O CONTRAST, 09/17/2023 09/13/2023 3:26 PM SECURITY CONTROL CENTER OPERATOR Anesthesia Event [facility] [address] [place] [address] Jaciel Perea, 09/13/2023 2:25 PM SECURITY CONTROL CENTER OPERATOR - 09/13/2023 3:49 PM SECURITY CONTROL CENTER OPERATOR Surgery [facility] [address] [place] [address] Gilson Smith MD LITHOTRIPSY URETEROSCOPY WITH LASER-LEFT 09/13/2023 1:17 PM SECURITY CONTROL CENTER OPERATOR - 09/13/2023 6:50 PM SECURITY CONTROL CENTER OPERATOR Hospital Encounter [facility] [address] [place] [address] Gilson Smith MD Kidney stone (Primary Dx); S/P ureteral stent placement; Left flank pain Discharge Disposition: Home Self Care 09/13/2023 Travel 09/07/2023 9:45 AM SECURITY CONTROL CENTER OPERATOR Ancillary Procedure [facility] [address] [place] [address] 09/07/2023 8:40 AM SECURITY CONTROL CENTER OPERATOR Office Visit [facility] [address] [facility] [address] Wandy Sterling MD Follow Up (Stent for [...] and ibuprofen every 4 hours) 09/07/2023 Refill [facility] [address] [facility] [place] [address] Wandy Sterling MD Refill Request (Rosuvastatin) 09/07/2023 Travel 09/06/2023 9:00 AM SECURITY CONTROL CENTER OPERATOR Telemedicine [address] [place] [address] Milena Ramirez, PhD, LP Individual Therapy 08/30/2023 10:30 AM [facility] Telemedicine [facility] [address] [place] [address] Milena Ramirez, PhD, LP Individual Therapy 08/30/2023 Travel 08/28/2023 1:05 PM SECURITY CONTROL CENTER OPERATOR - 08/28/2023 6:00 PM [facility] Emergency [facility] Emergency Department [address] [place] [address] Pam Aden PA S/P ureteral stent placement (Primary Dx); Left flank pain Discharge Disposition: Home Self Care 08/28/2023 Orders Only [place] [address] [address] [facility] [address] Wandy Sterling MD <No scans attached> 08/28/2023 Travel 08/25/[address] [place] [address] Wandy Sterling MD Medication Management (PAIN AND SLEEP MEDICATION ) 08/23/2023 12:16 PM SECURITY CONTROL CENTER OPERATOR Anesthesia Event [facility] [address] [place] [address] Sarwat Cordero MD Johnson, Sally Mikal, SOIL SCIENCE TEACHER 08/23/2023 12:00 PM SECURITY CONTROL CENTER OPERATOR - 08/23/2023 1:19 PM SECURITY CONTROL CENTER OPERATOR Surgery [facility] [address] [place] [address] Harsh Manzano MD CYSTOSCOPY LEFT URETERAL STENT PLACEMENT, RETROGRADE 08/23/2023 10:25 AM SECURITY CONTROL CENTER OPERATOR - 08/23/2023 6:35 PM SECURITY CONTROL CENTER OPERATOR Hospital Encounter [facility] [address] [place] [address] Harsh Manzano MD Renal calculus, left (Primary Dx) Discharge Disposition: Home Self Care 08/22/2023 Travel 08/21/2023 3:40 PM SECURITY CONTROL CENTER OPERATOR Preop Visit [facility] [address] [place] [address] Vivi Jiang MD Preoperative Exam 08/21/2023 10:30 AM SECURITY CONTROL CENTER OPERATOR Telemedicine [facility] [address] [place] [address] [facility] PhD[facility] 08/21/2023 Travel 08/19/2023 Travel 08/17/2023 9:30 AM SECURITY CONTROL CENTER OPERATOR Office Visit [facility] [address] [place] [address] Wandy Sterling MD Follow Up (Review results) 08/17/2023 Travel 08/16/2023 9:00 AM SECURITY CONTROL CENTER OPERATOR Orders Only [facility] [address] [place] [address] Lab, [facility] 08/16/2023 8:30 AM SECURITY CONTROL CENTER OPERATOR Ancillary Procedure [facility] [address] [place] [address] 08/15/2023 9:00 AM SECURITY CONTROL CENTER OPERATOR Ancillary Procedure [facility] [address] [place] [address] 08/15/2023 Travel 08/10/2023 1:40 PM CDT Office Visit [facility] [address] [address] Jaylene Pan PA Hip Pain/problem (Left hip pain extending into leg/foot) 08/10/2023 Travel 08/10/2023 Nurse Triage [facility] [address] [facility] [place] [address] Wandy Sterling MD Hip Pain/problem 08/04/2023 10:30 AM CDT Telemedicine [facility] [address] [facility] [place] [address] Milena Ramirez, PhD, Telehealth 08/04/2023 Travel 08/01/2023 10:05 AM CDT Office Visit [facility] [address] [facility] [place] [address] Wandy Sterling MD Abdominal Pain (Digestive issues, some has been ongoing, some a little worse. Discuss Omeprazole, helped with the vomiting but not the diarrhea. Pain last week ) 08/01/2023 Travel from Last 3 Months Immunizations Name [...] Other Maternal Grandfather Alzheim ers Cancer-breast Mother Sanya age 70's Stroke Mother Marluz Osteoporosis Sister 2 Age 52, spine f racture, scoliosis Anesthesia Problem No Family History Blood Disease No Family History Clotting disorder No Family History Relation Name Status Comments Brother 1 Herbert Alive Brother 2 Daughter 1 Lisa Alive Daughter 2 Ivanna Alive Father (Age 55) Maternal Grandfather (Age 80) Maternal Grandmother (Age 98) Mother Marjean Paternal Grandfather Paternal Grandmother Sister 1 Beryl Alive Sister 2 Social History Tobacco Use [...] 2 2 Date Outcome GA Total Labor Labor/2nd/3rd Weight Sex Delivery Anes PTL Mala A1 A5 Name Cl in Term Toshia ng Term Vag Toshia ng Last Filed Vital Signs Vital Sign Reading Time Taken Comments Blood Pressure 115/75 09/19/2023 11:47 AM SECURITY CONTROL CENTER OPERATOR Pulse 86 09/19/2023 11:47 AM SECURITY CONTROL CENTER OPERATOR Temperature 36.4 ??C (97.5 ??F) 09/13/2023 5:15 PM CS T Respiratory Rate 18 09/13/2023 6:15 PM SECURITY CONTROL CENTER OPERATOR Oxygen Saturation 98% 09/19/2023 11:47 AM SECURITY CONTROL CENTER OPERATOR Inhaled Oxygen Concentration - - Weight 103 kg (227 lb) 09/19/2023 11:47 AM SECURITY CONTROL CENTER OPERATOR Height 165.1 cm (5' 5) 08/28/2023 11:47 AM SECURITY CONTROL CENTER OPERATOR Body Mass Index 37.77 08/28/2023 11:47 AM SECURITY CONTROL CENTER OPERATOR Plan of Treatment Upcoming Encounters Date Type Department Care Team (Late st Contact Info) Description 11/03/2023 10:30 AM SECURITY CONTROL CENTER OPERATOR Telemedicine [facility] [address] [facility] [phone] Milena Ramirez, PhD, LP [address] [place] [address] 11/08/2023 2:20 PM SECURITY CONTROL CENTER OPERATOR Office Visit [facility] [address] [place] [address] [place] [phone] Colette Gomez MD [address] [facility] [address] [place] [address] 11/10/2023 10:30 AM SECURITY CONTROL CENTER OPERATOR Telemedicine [facility] [address] [place] [phone] Milena Ramirez, PhD, LP [address] [place] [address] Health Maintenance Due Date Last Done Comments [...] history exists Medical Devices Implanted Type Area Seed District Sales Manager Device Identifier Shelf Expiration Date Model / Serial / Lot Stent Uret [id number] Contour - [id number] Implanted:Qty: 1 on 08/23/2023 by Harsh Manzano MD at [facility] Left: Ureter [facility] 04/13/2026 [id number] / / [id number] Stent Uret [id number] Contour - [id number] Implanted:Qty: 1 on 09/13/2023 by Gilson Smith MD at [facility] Left: Ureter [facility] 03/28/2026 [id number] / / [id number] Procedures Procedure Name Priority Date/Time Associated Diagnosis Comments SCAN-RADIOLOGY REPORT 10/18/2023 12:00 AM SECURITY CONTROL CENTER OPERATOR EMG PETER 10/12/2023 Lumbar radiculopathy Acute midline low back pain with left-sided sciatica XR SPINE LUMBAR 2 VIEWS FLEXION EXTENSION Routine 10/11/2023 11:48 AM SECURITY CONTROL CENTER OPERATOR Lumbar pain SCAN-LABORATORY REPORT 10/06/2023 12:00 AM SECURITY CONTROL CENTER OPERATOR SCAN-RADIOLOGY REPORT 09/30/2023 12:00 AM SECURITY CONTROL CENTER OPERATOR SCAN-RADIOLOGY REPORT 09/30/2023 12:00 AM SECURITY CONTROL CENTER OPERATOR SCAN CORRESP-LABORATORY RESULTS 09/19/2023 12:00 AM SECURITY CONTROL CENTER OPERATOR SCAN CORRESP-IMAGING 09/19/2023 12:00 AM SECURITY CONTROL CENTER OPERATOR SCAN-MRI INTERPRETATION 09/17/2023 12:00 AM SECURITY CONTROL CENTER OPERATOR STONE ANALYSIS Today 09/13/2023 4:48 PM SECURITY CONTROL CENTER OPERATOR PATH NON MAINTENANCE MGR CYTOLOGY Today 09/13/2023 4:34 PM SECURITY CONTROL CENTER OPERATOR PATH TISSUE EXAM Today 09/13/2023 4:31 PM SECURITY CONTROL CENTER OPERATOR SUPRAGLOTTIC-LMA Routine 09/13/2023 3:32 PM SECURITY CONTROL CENTER OPERATOR CYSTOSCOPY PLACEMENT URETERAL STENT Elective 09/13/2023 3:26 PM SECURITY CONTROL CENTER OPERATOR URINARY STONE Case Notes [facility] C-[facility] Special Needs [id number] LITHOTRIPSY URETEROSCOPY WITH LASER Elective 09/13/2023 3:26 PM SECURITY CONTROL CENTER OPERATOR URINARY STONE Case Notes [facility] Special Needs [id number] US PELVIS COMPLETE TV Routine 09/07/2023 11:49 AM SECURITY CONTROL CENTER OPERATOR Left ovarian cyst CT ABDOMEN PELVIS W STAT 08/28/2023 4 :03 PM SECURITY CONTROL CENTER OPERATOR URINALYSIS MICROSCOPIC STAT 08/28/2023 1:55 PM SECURITY CONTROL CENTER OPERATOR UA W/ SEDIMENT EXAM REFLEXED PER CRITERIA STAT 08/28/2023 1:55 PM SECURITY CONTROL CENTER OPERATOR BASIC METABOLIC PANEL STAT 08/28/2023 1:23 PM SECURITY CONTROL CENTER OPERATOR CBC W PLT NO DIFF STAT 08/28/2023 1:2 3 PM SECURITY CONTROL CENTER OPERATOR GLUCOSE METER Timed 08/23/2023 7:08 PM SECURITY CONTROL CENTER OPERATOR XR RETROGRADE PYELOGRAM W/WO KUB Routine 08/23/2023 12:45 PM SECURITY CONTROL CENTER OPERATOR ENDOTRACHEAL TUBE Routine 08/23/2023 12:40 PM SECURITY CONTROL CENTER OPERATOR ENDOTRACHEAL TUBE Routine 08/23/2023 12:40 PM SECURITY CONTROL CENTER OPERATOR ENDOTRACHEAL TUBE Routine 08/23/2023 12:40 PM SECURITY CONTROL CENTER OPERATOR CYSTOSCOPY PLACEMENT URETERAL STENT RETROGRADES Class E Urgent 08/23/2023 12:03 PM SECURITY CONTROL CENTER OPERATOR kidney stone POTASSIUM,ISTAT STAT 08/21/2023 4:10 PM SECURITY CONTROL CENTER OPERATOR Pre-op examination CT ABDOMEN PELVIS W PETER 08/16/2023 2 :39 PM SECURITY CONTROL CENTER OPERATOR Lumbar radiculopathy Severe back pain Abdominal mass, unspecified abdominal location CREATININE,ISTAT Routine 08/16/2023 8:57 AM SECURITY CONTROL CENTER OPERATOR Observation or evaluation for suspected condition XR SPINE LUMBAR 3 VIEWS Routine 08/15/2023 9:14 AM SECURITY CONTROL CENTER OPERATOR Lumbar radiculopathy from Last 3 Months Results * SCAN-RADIOLOGY REPORT (10/18/2023 12:00 AM SECURITY CONTROL CENTER OPERATOR) Only the most recent of3 resultswithin the time period is included. Anatomical Region Laterality Modality Other Scanner OTHER * EMG (10/12/2023) Wandy Sterling MD NEUROLOGY ORD * XR SPINE LUMBAR 2 VIEWS FLEXION EXTENSION (10/11/2023 11:48 AM SECURITY CONTROL CENTER OPERATOR) Anatomical Region Laterality Modality Spine, LUMBAR SPINE Digital Radi ography 10/11/2023 11:4 8 AM SECURITY CONTROL CENTER OPERATOR Impressions 10/11/2023 2:52 PM SECURITY CONTROL CENTER OPERATOR Lateral Flexion-extension views of the lumbar spine were obtained. Grade 1 anterolisthesis of L4 on L5 is unchanged with flexion and extension. Grade 1 retrolisthesis of L1 on L2 is unchanged with flexion and extension. No dynamic instability. Mild loss of disc space height at L1-L2. Severe degenerative facet changes at L4-L5 and L5-S1. Narrative 10/11/2023 2:52 PM SECURITY CONTROL CENTER OPERATOR For Patients: As a result of the Century Cures Act, medical imaging exams and procedure reports are released immediately into your electronic medical record. You may view this report before your referring provider. If you have questions, please contact your health care provider. EXAM: XR SPINE LUMBAR 2 VIEWS FLEXION EXTENSION LOCATION: [facility] DATE: 10/11/2023 INDICATION: Lumbar Pain COMPARISON: CT abdomen and pelvis 08/28/2023. Procedure Note Michi Olmedo MD - 10/11/2023 For Patients: As a result of the Century Cures Act, medical imagingexams and procedure reports are released immediately into your electronicmedical record. You may view this report before your referring provider.If you have questions, please contact your health care provider. EXAM: XR SPINE LUMBAR 2 VIEWS FLEXION EXTENSION LOCATION: [facility] DATE: 10/11/2023 INDICATION: Lumbar Pain COMPARISON: [...] IMAGING * SCAN-LABORATORY REPORT (10/06/2023 12:00 AM SECURITY CONTROL CENTER OPERATOR) Scanner OTHER * SCAN CORRESP-LABORATORY RESULTS (09/19/2023 12:00 AM SECURITY CONTROL CENTER OPERATOR) Scanner OTHER * SCAN CORRESP-IMAGING (09/19/2023 12:00 AM SECURITY CONTROL CENTER OPERATOR) Anatomical Region Laterality Modality Other Scanner OTHER * SCAN-MRI INTERPRETATION (09/17/2023 12:00 AM SECURITY CONTROL CENTER OPERATOR) Anatomical Region Laterality Modality Other Scanner OTHER * STONE ANALYSIS (09/13/2023 4:48 PM SECURITY CONTROL CENTER OPERATOR) Source Comment 09/21/2023 8:06 PM SECURITY CONTROL CENTER OPERATOR [facility] Comment:Left Kidney Color Brown 09/21/2023 8:06 PM SECURITY CONTROL CENTER OPERATOR [facility] Size 3x3 mm 09/21/2023 8:06 PM [facility] ([facility]) Comment: Multiple pieces received. ??Dimensions of the largest piece reported. Weight 20 mg 09/21/2023 8:06 PM [facility] ([facility]) Composition Comment 09/21/2023 8:06 PM [facility] ([facility]) Comment:Percentage (Represen ts the % composition) Calcium Oxalate Monoh 60 % 09/21/2023 8:06 PM [facility] ([facility]) Calcium Oxalate Dihyd 40 % 09/21/2023 8:06 PM [facility] ([facility]) Comment Comment 09/21/2023 8:06 PM [facility] ([facility]) Comment:Source Provided: Lef t Renal Pelvis Comment Comment 09/21/2023 8:06 PM [facility] ([facility]) Comment: Calculus received wet. Wet calculi must be dried before analysis, which delays reporting of results. Leaving calculi wet (such as water, saline, blood, urine) may lead to changes in composition. Photo Comment 09/21/2023 8:06 PM [facility] ([facility]) Comment:Photograph will foll ow under a separate cover Comment: Comment 09/21/2023 8:06 PM [facility] ([facility]) Comment: Physician questions regarding Calculi Analysis contact [facility] at: [phone]. Please note: Comment 09/21/2023 8:06 PM [facility] ([facility]) Comment: Calculi report will follow via computer, mail or loading manager delivery. Disclaimer: Comment 09/21/2023 8:06 PM [facility] ([facility]) Comment: This test was developed and its performance characteristics determined by [employer]. ??It has not been cleared or approved by the Food and Drug Administration. Calculi (stone) CALCULUS SPECIMEN / Unknown Non-Blood / Unknown 09/13/2023 4:48 PM SECURITY CONTROL CENTER OPERATOR 09/13/2023 5:30 PM [facility] Narrative [facility] ([facility]) - 09/21/2023 8:06 PM SECURITY CONTROL CENTER OPERATOR Performed at: ??01 - [facility] [place] [address] [facility], [place], [place] ??[id number] Horse Breeder: Huy Jusitn PhD, Phone: ??[phone] Gilson Smith MD SEND OUTS [facility] ([facility]) [address] [place] [id number], * PATH NON MAINTENANCE MGR CYTOLOGY (09/13/2023 4:34 PM SECURITY CONTROL CENTER OPERATOR) Case Report Medical Cytology Report ? Case: [id number] ? Authorizing Provider: ??Gilson Smith MD ? Collected: ? 09/13/2023 1634 ? Ordering Location: ? [facility] ?Received: ?09/13/2023 1719 ? Pathologist: ? Cora Arroyo MD ? Specimen: ?Left Renal Pelvis Brushing ? 09/15/2023 3:02 PM SECURITY CONTROL CENTER OPERATOR [facility] Final Diagnosis A) KIDNEY, LEFT, RENAL PELVIS, BRUSHIN. Negative for high grade urothelial carcinoma 2. Scant cellularity 09/15/2023 3:02 PM SECURITY CONTROL CENTER OPERATOR [facility] LABORAT[facility] Comment According to the Leora system of reporting urinary tract cytology, the diagnosis of negative for high grade urothelial carcinoma indicates the sample is composed of benign urothelial cells and that cells that could remotely raise the suspicion of high grade urothelial carcinoma are absent. This does not and cannot exclude the possibility of a low grade urothelial neoplasm. 09/15/2023 3:02 PM SECURITY CONTROL CENTER OPERATOR [facility] Clinical Information History of left renal pelvis stone. ??Ureteroscopy demonstrated stone located in the renal pelvis, severe mucosal changes most consistent with chronic inflammation. 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 09/15/2023 3:02 PM SECURITY CONTROL CENTER OPERATOR [facility]- ENTRSD LABORATORY Gross Description A) SOURCE: Renal pelvis brushing, left The specimen consists of a brush in 1 drop of fluid from which the following is prepared: ? -1 Papanicolaou stained ThinPrep slide 09/15/2023 3:02 PM SECURITY CONTROL CENTER OPERATOR [facility] LABOR[facility]ORY Microscopic Description All slides were reviewed microscopically. Specimen adequacy: Adequate for interpretation. The microscopic appearance substantiates the diagnosis. 09/15/2023 3:02 PM SECURITY CONTROL CENTER OPERATOR [facility] ENTRSD LABORATORY Additional Information Cytology is screened at [facility] Laboratory, Central Laboratory - [address] [address] and [facility] Laboratory - [address] [place] [address] and [facility] Laboratory - [address] [place] [address] Interpreted at [facility], Central Laboratory - [address] [address] 09/15/2023 3:02 PM [facility] ENTRSD LABORATORY Brushing (Left Renal Pelvis Brushing) 09/13/2023 4:34 PM SECURITY CONTROL CENTER OPERATOR 09/13/2023 5:19 PM SECURITY CONTROL CENTER OPERATOR Gilson Smith MD PATHOLOGY/CYTOLOGY [facility] [address] [place] [address], * PATH TISSUE EXAM (09/13/2023 4:31 PM SECURITY CONTROL CENTER OPERATOR) Case Report Pathology Report ?Case: [id number] ? Authorizing Provider: ??Gilson Smith MD ? Collected: ? 09/13/2023 1631 ? Ordering Location: ? [facility] ?Received: ?09/13/2023 1718 ? Pathologist: ? Ander Swanson MD ? Specimen: ?Biopsy, left renal pelvis biopsy ? 09/15/2023 1:11 PM SECURITY CONTROL CENTER OPERATOR [facility] Final Diagnosis A) LEFT RENAL PELVIS, BIOPSY: 1. Severe chronic ureteritis with calcifications 2. Negative for tumor and malignancy 09/15/2023 1:11 PM SECURITY CONTROL CENTER OPERATOR [facility] Clinical Information 73-year-old with a history of left renal pelvis stone. Ureteroscopy demonstrated stone located in the renal pelvis, severe mucosal changes most consistent with chronic inflammation. Biopsy taken. 09/15/2023 1:11 PM SECURITY CONTROL CENTER OPERATOR [facility]AL LABORATORY Gross Description A) Received in formalin, labeled with the patient's name and left renal pelvis biopsy, are 3 isaac-brown tissue fragments ranging between 0.1 and 0.2 cm in greatest dimension. ??The specimen is submitted entirely in 1 cassette. SHANTELLE 09/14/2023 ? 09/15/2023 1:11 PM SECURITY CONTROL CENTER OPERATOR [facility] LABORATORY-C ENTRAL LABORATORY Microscopic Description The final diagnosis is based on microscopic examination of appropriate sections of all specimens. 09/15/2023 1:11 PM SECURITY CONTROL CENTER OPERATOR [facility] Additional Information Interpreted at [facility], Central Laboratory - [address] [address] 09/15/2023 1:11 PM SECURITY CONTROL CENTER OPERATOR [facility] LABORAT[facility] Biopsy BIOPSY SPECIMEN / Unknown 09/13/2023 4:31 PM SECURITY CONTROL CENTER OPERATOR 09/13/2023 5:18 PM SECURITY CONTROL CENTER OPERATOR Gilson Smith MD PATHOLOGY/CYTOLOGY [facility] LABORATORY-CENTRAL LABORATORY [address] [place] [address], * Supraglottic (09/13/2023 3:32 PM SECURITY CONTROL CENTER OPERATOR) Narrative Devin Centeno SOIL SCIENCE TEACHER - 09/13/2023 3:32 PM SECURITY CONTROL CENTER OPERATOR Devin Centeno, BLU ? 09/13/2023 ??3:32 PM Procedure: Supraglottic Patient location during procedure: OR Supraglottic Airway Properties Mask Ventilation: not attempted Type: i-gel Tube Size: 3 Insertion Attempts: 1 Placement Verification: auscultation and CO2 detection Assessment Assessment: atraumatic and dentition unchanged Jacile Perea DO ANESTHESIA PX NOTE ORDERABLES * US PELVIS COMPLETE TV (09/07/2023 11:49 AM SECURITY CONTROL CENTER OPERATOR) Anatomical Region Laterality Modality Pelvis, OVARIES, UTERUS Ultrasou nd 09/07/2023 3:47 PM SECURITY CONTROL CENTER OPERATOR Narrative 09/07/2023 3:47 PM SECURITY CONTROL CENTER OPERATOR For Patients: ??As a result of [...] IV (Oral Contrast NO) (08/28/2023 4:03 PM SECURITY CONTROL CENTER OPERATOR) Only the most recent of2 resultswithin the time period is included. Anatomical Region Laterality Modality Abdomen, Pelvis, AORTA, LIVER, SPLEEN Computed Tomography 08/28/2023 4:44 PM SECURITY CONTROL CENTER OPERATOR Impressions 08/28/2023 4:44 PM SECURITY CONTROL CENTER OPERATOR 1. New left-sided double-J urinary stent [...] PM (Electronically Signed) Narrative 08/28/2023 4:44 PM SECURITY CONTROL CENTER OPERATOR For Patients: ??As a result of [...] @ 08/28/2023 4:44:27 PM (Electronically Signed) Pam GALLEGOS CT * (ABNORMAL) URINALYSIS MICROSCOPIC (08/28/2023 1:55 PM SECURITY CONTROL CENTER OPERATOR) RBC >100(A) 0-2, None Seen /HPF 08/28/2023 2:20 PM SECURITY CONTROL CENTER OPERATOR [facility] LAB[facility] WBC >100(A) 0-2, 3-5, None Seen /HPF 08/28/2023 2:20 PM SECURITY CONTROL CENTER OPERATOR [facility] TRAL LABORATORY BACTERIA Few None Seen, Rare, Few Bacteria/H PF 08/28/2023 2:20 PM SECURITY CONTROL CENTER OPERATOR [facility] TRAL LABORATORY EPITHELIAL CELLS Few None Seen, Few Epi/HPF 08/28/2023 2:20 PM SECURITY CONTROL CENTER OPERATOR [facility] LAB[facility] HYALINE CASTS 3-5 0-2, 3-5 /LPF 08/28/2023 2:20 PM SECURITY CONTROL CENTER OPERATOR [facility] LAB[facility]ORY Urine URINE SPECIMEN / Unknown Non-Blood / Unknown 08/28/2023 1:55 PM SECURITY CONTROL CENTER OPERATOR 08/28/2023 2:06 PM SECURITY CONTROL CENTER OPERATOR Anw Ed Triage URINE [facility] [address] [place] [address], [place] * (ABNORMAL) UA W/ SEDIMENT EXAM REFLEXED PER CRITERIA (08/28/2023 1:55 PM SECURITY CONTROL CENTER OPERATOR) COLOR Yellow Yellow Color 08/28/2023 2:20 PM SECURITY CONTROL CENTER OPERATOR [facility] TRAL LABORATORY CLARITY Cloudy(A) Clear Clarity 08/28/2023 2:20 PM SECURITY CONTROL CENTER OPERATOR [facility] LABORATORY SPECIFIC GRAVITY,URINE 1.020 1.010, 1.015, 1.020, 1.025 08/28/2023 2:20 PM SECURITY CONTROL CENTER OPERATOR [facility] PH,URINE 6.5 6.0, 7.0, 8.0, 5.5, 6.5, 7.5, 8.5 08/28/2023 2:20 PM SECURITY CONTROL CENTER OPERATOR [facility] LAB[facility]ORY UROBILINOGEN, QUALITATIVE Normal Normal EU/dl 08/28/2023 2:20 PM SECURITY CONTROL CENTER OPERATOR [facility] TRAL LABORATORY PROTEIN, URINE 100(A) Negative mg/dL 08/28/2023 2:20 PM SECURITY CONTROL CENTER OPERATOR [facility] TRAL LABORATORY GLUCOSE, URINE Negative Negative mg/dL 08/28/2023 2:20 PM SECURITY CONTROL CENTER OPERATOR [facility] TRAL LABORATORY KETONES,URINE Negative Negative mg/dL 08/28/2023 2:20 PM SECURITY CONTROL CENTER OPERATOR [facility] TRAL LABORATORY BILIRUBIN,URI NE Negative Negative 08/28/2023 2:20 PM SECURITY CONTROL CENTER OPER[facility] OCCULT BLOOD,URINE Large(A) Negative 08/28/2023 2:20 PM SECURITY CONTROL CENTER OPERATOR [facility] TRAL LABORATORY NITRITE Negative Negative 08/28/2023 2:20 PM SECURITY CONTROL CENTER OPERATOR [facility] LEUKOCYTE ESTERASE Large(A) Negative 08/28/2023 2:20 PM SECURITY CONTROL CENTER OPERATOR [facility] LAB[facility]ORY Urine URINE SPECIMEN / Unknown Non-Blood / Unknown 08/28/2023 1:55 PM SECURITY CONTROL CENTER OPERATOR 08/28/2023 2:06 PM SECURITY CONTROL CENTER OPERATOR Anw Ed Triage URINE [facility] [address] [place] [address], * CBC W PLT NO DIFF (08/28/2023 1:23 PM SECURITY CONTROL CENTER OPERATOR) WHITE BLOOD COUNT 10.0 4.5 - 11.0 thou/cu mm 08/28/2023 2:01 PM SECURITY CONTROL CENTER OPERATOR [facility] LAB[facility] RED BLOOD COUNT 4.75 4.00 - 5.20 mil/cu mm 08/28/2023 2:01 PM SECURITY CONTROL CENTER OPERATOR [facility] HEMOGLOBIN 13.9 12.0 - 16.0 g/dL 08/28/2023 2:01 PM SECURITY CONTROL CENTER OPERATOR [facility] HEMATOCRIT 42.6 33.0 - 51.0 % 08/28/2023 2:01 PM SECURITY CONTROL CENTER OPERATOR [facility] MCV 90 80 - 100 fL 08/28/2023 2:01 PM SECURITY CONTROL CENTER OPERATOR [facility] MCH 29.3 26.0 - 34.0 pg 08/28/2023 2:01 PM SECURITY CONTROL CENTER OPERATOR [facility] MCHC 32.6 32.0 - 36.0 g/dL 08/28/2023 2:01 PM SECURITY CONTROL CENTER OPERATOR [facility] RDW 13.3 11.5 - 15.5 % 08/28/2023 2:01 PM SECURITY CONTROL CENTER OPERATOR [facility] PLATELET COUNT 248 140 - 440 thou/cu mm 08/28/2023 2:01 PM SECURITY CONTROL CENTER OPERATOR [facility] MPV 10.5 6.5 - 11.0 fL 08/28/2023 2:01 PM SECURITY CONTROL CENTER OPERATOR [facility] NRBC 0.0 % 08/28/2023 2:01 PM SECURITY CONTROL CENTER OPERATOR [facility] ABS NRBC 0.0 thou /cu mm 08/28/2023 2:01 PM SECURITY CONTROL CENTER OPERATOR [facility] Blood BLOOD SPECIMEN / Unknown Venipuncture / Unknown 08/28/2023 1:23 PM SECURITY CONTROL CENTER OPERATOR 08/28/2023 1:45 PM SECURITY CONTROL CENTER OPERATOR Anw Ed Triage HEMATOLOGY [facility] [address] [place] [address], * (ABNORMAL) BASIC METABOLIC PANEL (08/28/2023 1:23 PM SECURITY CONTROL CENTER OPERATOR) SODIUM 138 136 - 145 mmol/L 08/28/2023 2:28 PM [facility] TRAL LABORATORY POTASSIUM 3.7 3.5 - 5.1 mmol/L 08/28/2023 2:28 PM [facility] TRAL LABORATORY CHLORIDE 101 98 - 107 mmol/L 08/28/2023 2:28 PM [facility] TRAL LABORATORY CO2,TOTAL 29 22 - 29 mmol/L 08/28/2023 2:28 PM [facility] TRAL LABORATORY ANION GAP 8 5 - 18 08/28/2023 2:28 PM [facility] TRAL LABORATORY GLUCOSE 103(H) 70 - 99 mg/dL 08/28/2023 2:28 PM [facility] TRAL LABORATORY CALCIUM 9.3 8.8 - 10.2 mg/dL 08/28/2023 2:28 PM [facility] TRAL LABORATORY BUN 22 8 - 23 mg/dL 08/28/2023 2:28 PM [facility] TRAL LABORATORY CREATININE 0.65 0.50 - 0.90 mg/dL 08/28/2023 2:28 PM [facility] TRAL LABORATORY BUN/CREAT RATIO 34(H) 10 - 20 2:28 PM [facility] TRAL LABORATORY eGFR >90 >90 mL/min/1.7 3m2 08/28/2023 2:28 PM [facility] TRAL LABORATORY Comment:As of 2021, eG FR is calculated by the CKD-EPI creatinine equation without race adjustment. ??eGFR can be influenced by muscle mass, exercise, and diet. ??The reported eGFR is an estimation only and is only applicable if the renal function is stable. Blood BLOOD SPECIMEN / Unknown Venipuncture / Unknown 08/28/2023 1:23 PM SECURITY CONTROL CENTER OPERATOR 08/28/2023 1:45 PM SECURITY CONTROL CENTER OPERATOR Anw Ed Triage CHEMISTRY Performing Organization Address City/[facility]/ZIP Co de Phone Number [facility] [address] [place] [address], [place] * (ABNORMAL) GLUCOSE METER (08/23/2023 7:08 PM SECURITY CONTROL CENTER OPERATOR) GLUCOSE METER 206(H) 65 - 100 mg/dL 08/23/2023 6:08 PM SECURITY CONTROL CENTER OPERATOR [facility] Blood BLOOD SPECIMEN / Unknown 08/23/2023 7:08 PM SECURITY CONTROL CENTER OPERATOR 08/23/2023 6:08 PM SECURITY CONTROL CENTER OPERATOR Harsh Manzano MD CHEMISTRY Performing Organization Address [facility] Co de Phone Number [facility] [address] [place] [address], [place] * XR RETROGRADE PYELOGRAM W/WO KUB (08/23/2023 12:45 PM SECURITY CONTROL CENTER OPERATOR) Anatomical Region Laterality Modality KIDNEYS, Abdomen Digital Radiogr aphy Narrative 08/23/2023 12:19 PM SECURITY CONTROL CENTER OPERATOR 10 seconds fluoroscopy time was provided. ??See operative/procedure report for further information. Harsh Manzano MD GENERAL IM AGING * [facility] TUBE PR1, [facility] INSTRUMENT DISP PR10, [facility] STYLET PR1 (08/23/2023 12:40 PM SECURITY CONTROL CENTER OPERATOR) Narrative Mireya Ortiz CRNA - 08/23/2023 12:40 PM SECURITY CONTROL CENTER OPERATOR Mireya Ortiz CRNA ? 08/23/2023 12:40 [...] O RDERABLES * POTASSIUM,ISTAT (08/21/2023 4:10 PM SECURITY CONTROL CENTER OPERATOR) POTASSIUM, POCT 3.9 3.5 - 5.0 mmol/L 08/21/2023 4:14 PM SECURITY CONTROL CENTER OPERATOR [facility] Blood BLOOD SPECIMEN / Unknown 08/21/2023 4:10 PM SECURITY CONTROL CENTER OPERATOR 08/21/2023 4:14 PM SECURITY CONTROL CENTER OPERATOR Vivi Jiang MD CHEMISTRY [facility] [address] [place] [address], [place] [phone] * (ABNORMAL) CREATININE,ISTAT (08/16/2023 8:57 AM SECURITY CONTROL CENTER OPERATOR) CREATININE, POCT 0.90 0.57 - 1.11 mg/dL 08/16/2023 8:59 AM SECURITY CONTROL CENTER OPERATOR [facility] Comment:Caution: Patients ta jerry Hydroxyurea have falsely increased iStat Creatinine results. Verify creatinine results ordering a Creatinine (16569.2) eGFR 68(L) >90 mL/min/1.7 3m2 08/16/2023 8:59 AM SECURITY CONTROL CENTER OPERATOR [facility] Comment:As of 2021, eG FR is calculated by the CKD-EPI creatinine equation without race adjustment. eGFR can be influenced by muscle mass, exercise, and diet. The reported eGFR is an estimation only and is only applicable if the renal function is stable. Blood BLOOD SPECIMEN / Unknown 08/16/2023 8:57 AM SECURITY CONTROL CENTER OPERATOR 08/16/2023 8:59 AM SECURITY CONTROL CENTER OPERATOR Wandy Sterling MD CHEMISTRY [facility] [address] [address], [place] [phone] * XR SPINE LUMBAR 3 VIEWS (08/15/2023 9:14 AM SECURITY CONTROL CENTER OPERATOR) Anatomical Region Laterality Modality LUMBAR SPINE Computed Radiogr aphy 08/15/2023 10:2 2 AM SECURITY CONTROL CENTER OPERATOR Impressions 08/15/2023 10:22 AM SECURITY CONTROL CENTER OPERATOR Grade 1 degenerative spondylolisthesis of L4 on L5. Indeterminate 1.8 cm nodular density projecting to the left of the lumbar spine, not present on CT abdomen 10/29/2009. CT abdomen pelvis recommended for further evaluation. Dictated by Herbert Karimi MD @ Nov ??2022 10:22AM (Electronically Signed) ?? Narrative 08/15/2023 10:22 AM SECURITY CONTROL CENTER OPERATOR For Patients: ??As a result of [...] Aug 15 2023 10:22AM (Electronically Signed) Wandy SYKES IMAGI NG from Last 3 Months Advance Directives Documents on File Type Date Recorded Patient Risk Assessment Consultant Expl anation Healthcare Directive 11/14/2019 2:03 PM [...] Code Status Discussion: Not Discussed Care Teams Seamer Elastic Band Relationship Specialty Start Date End Date Wandy Sterling MD [address] [place] [address] PCP - General 01/28/06
--- OUTSIDE RECORDS SUMMARY | 2023-10-25 09:06 | XMS_ITS | Clinical Summary ---
Author Name Unknown Organization [facility] Address [facility] [address] [place] [address] Care Team Providers Care Technical Mgr Name Role Phone Unavailable Primary Care Provider [...]
--- NOTE | 2023-10-25 09:15 | CRLHL7_ITS ---
For Patients: As a result of the Century Cures Act, medical imaging exams and procedure reports are released immediately into your electronic medical record. You may view this report before your referring provider. If you have questions, please contact your health care provider. INDICATION: Low back pain. COMPARISON: 09/17/2023. TECHNIQUE: Sagittal T1, T2, and STIR sequences. Axial T1 and T2 weighted sequences. FINDINGS: Stable grade 1 anterolisthesis of L4 on L5 and L5 on S1 measures approximately 4 mm. Otherwise, normal alignment. No fractures. No vertebral body loss of height. No ligamentous injury. No suspicious osseous lesions. Normal conus terminates at L2. No intradural mass or lesion. No abnormal enhancement. [id number]: Mild disc degeneration. No spinal canal neural foraminal narrowing. L1-2: Disc degeneration. Diffuse disc bulge eccentric to the left. No narrowing of the spinal canal. No narrowing of the right neural foramen. Moderate narrowing of the left neural foramen. Mild facet arthropathy. L2-3: Disc generation posted disc bulge. No narrowing of the spinal canal. Mild narrowing of the bilateral foramina. L3-4: Disc degeneration. Posterior disc bulge. No narrowing of the spinal canal. No neural foraminal narrowing. Mild facet arthropathy. L4-5: Disc degeneration posted disc bulge. No narrowing of spinal canal. No neural foraminal narrowing. Mild facet arthropathy. L5-S1: Disc degeneration. Posterior disc bulge. No narrowing of spinal canal. No impingement of the traversing S1 nerve roots. No neural foraminal narrowing. Normal visualized SI joints. Normal perispinal soft tissues. IMPRESSION: 1. Stable grade 1 anterolisthesis of L4 on L5 and L5 on S1. 2. Otherwise normal alignment. No fractures 3. No abnormal enhancement 4. At L1-2, disc degeneration. Diffuse disc bulge asymmetric to the left. No narrowing of the spinal canal. Moderate narrowing of the left neuroforamen. 5. At L2-3, mild narrowing of the bilateral neural foramina 6. Stable lumbar spondylosis Dictated by Taran Rasmussen MD @ 10/25/2023 12:15:57 PM (Electronically Signed)
--- NOTE | 2023-10-25 10:15 | CRLHL7_ITS ---
For Patients: As a result of the Century Cures Act, medical imaging exams and procedure reports are released immediately into your electronic medical record. You may view this report before your referring provider. If you have questions, please contact your health care provider. EXAM: MRI OF THE PELVIS, WITH AND WITHOUT CONTRAST CLINICAL INDICATION: Lumbosacral plexopathy. COMPARISON CROSS-SECTIONAL IMAGING STUDIES: MRI from 10/25/2023 and 09/17/2023. TECHNICAL: Multiplanar multisequence MRI of the pelvis with and without contrast. FINDINGS: OSSEOUS STRUCTURES AND OTHER JOINTS: No fracture, marrow edema or marrow replacement process. Mild degenerative changes of the sacroiliac joints. Marginal osteophytes are seen at the hips with small bilateral joint effusions, incompletely assessed on large [id number] imaging. MUSCULOTENDINOUS STRUCTURES AND BURSAE: Tendons and visualized musculotendinous units are intact. No muscle atrophy, or edema to suggest strain changes. Piriformis muscle mass is symmetric, right to left, without atrophy or edema. INTRAPELVIC CONTENTS: There is a simple appearing left adnexal cyst that is posterior to the uterus measuring 7.6 x 7.0 x 7.8 cm. No internal septations or enhancing components are identified. This cyst causes mass effect on the adjacent rectum. A fat plane is preserved between this cyst and the adjacent sacral nerve roots. Scattered colonic diverticula without findings of diverticulitis. NEUROVASCULAR STRUCTURES: No abnormality involving the visualized sacral nerve roots or proximal femoral or proximal sciatic nerves. No aneurysmal dilation of the visualized distal aorta or iliac arterial circulation. OTHER FINDINGS: None. IMPRESSION: 1. Normal MRI appearance of the lumbosacral plexus. Please refer to separate dictation of the same day lumbar spine MRI. 2. Simple appearing left adnexal cyst measuring 7.8 cm. Recommend 6-12 month follow-up with pelvic ultrasound to document stability. Dictated by Inez Horn MD @ 10/25/2023 3:03:11 PM (Electronically Signed)
== END 2023-10-25 08:59 | disposition home or self-care (01) ==
LOC: MRI 08:58
PROVIDERS: PCP Family Medicine; Visit Provider Family Medicine
DX: G54.1 Lumbosacral plexus disorders (principal); M51.36 Other intervertebral disc degeneration, lumbar region; M54.50 Low back pain, unspecified; N83.8 Other noninflammatory disorders of ovary, fallopian tube and broad ligament; R29.898 Other symptoms and signs involving the musculoskeletal system; N85.8 Other specified noninflammatory disorders of uterus
CPT/HCPCS: 72158; 72197; A9575

== ENCOUNTER 2024-04-15 10:00 | Outpatient (RCR) | payer MEDICARE, BC, SELFPAY ==
--- NOTE | 2023-12-18 15:14 | PT.OPEX ---
Please sign the attached physical therapy evaluation completed on 12/18/23. Thank you. PT [facility] PT [facility] Outpatient Eval Start: 12/15/23 14:10 Freq: Status: Active Protocol: Document 12/18/23 08:03 TLQ (Rec: 12/18/23 15:09 TLQ [id number]) E-signed By Lore Bob DPT Physical Therapy Outpatient Evaluation Insurance Information Recert Due Date 03/17/24 Insurance Name Medicare B,Blue Cross/Blue Shield Medical Diagnosis Polyneuropathy G62.9 Treating Diagnosis Impaired balance R26.81 Abnormal gait R26.9 Muscle weakness M62.81 Referring MD Darshan Wright MD Subjective Subjective Started having shooting pains in July 2023, started feeling weaker and falling to the point that she needed a walker. Fell in September and broke her right wrist which prompted her to start home health services which were completed 10/04/23-12/11/23. Determined to begin walking more with her FWW, has only been leaving her home for medical appointments which she used a wheelchair for. Wants to strengthen her left leg as it has been weaker since July. Frequently goes to [facility] for assessments of her current symptoms of weakness and balance difficulties. Gets B12 shots at [facility] due to deficiency. Home is ADA accessible on the main level, has one staircase to reach the basement but has not been able to use in months as it is steep and only has one railing. Plans to have an aide at home 2x/week (Monday's and Monday's) to assist her with completing her exercises she gets during PT. Reports hx of L-sided weakness in 2015 which resulted in foot drop and temporary use of an AFO, this has improved and she no longer requires an orthotic to assist with walking. PMHx: R distal radius fracture (ORIF 10/18/23), depression, HTN, hx of TKA, arthritis, osteoporosis *eval started late due to time needed to fill out initial paperwork* Pain Comments R wrist pain Current Work Status Retired Preferred Name Martha Precautions Treatment Precautions/Contraindications WBAT on R wrist Weight Bearing Status Weight Bear as Tolerated Therapy Limitations/Systems Review Not Limited Objective Other/Pertinent Objective BALANCE 30 second STS: 5 reps, requires use of B arms on armrests, decreased WB through RUE (<10 reps female 70-74 indicates fall risk) TU seconds, use of FWW (> 13.5 seconds indicates fall risk) Servin Balance Scale: not completed due to time constraints GAIT ambulates with use of FWW, decreased WB through RUE, forward trunk flexion gait speed: 0.48 m/s with FWW (<1.0 m/s indicates fall risk) STAIR NAVIGATION: step to pattern with 2 rails, R foot leading ascending, L foot leading descending ENDURANCE 2MWT: 58.19 meters with FWW, no rest breaks STRENGTH hip flexion R 4+, L 3+ hip extension R 4, L 4- hip abduction R 4+, L 4 hip adduction R 4+, L 4- knee flexion R 4+, L 4 knee extension R 4+, L 3+ ankle dorsiflexion 4-, hx of foot drop on L ankle plantarflexion: able to raise up on toes while seated Assessment Assessment/Impression Martha is a 73-year-old woman who presents to outpatient physical therapy to address functional weakness and impaired mobility. At this time cause of symptoms is idiopathic, onset in July 2023, currently being followed at [facility] to determine specific diagnosis. Began Home Health services in September 2023 following further limitations in mobility due to a right wrist fracture. Due to improvements in home mobility Martha is prepared to begin outpatient services in order to progress her gait and strength to increase her interactions in the community. Muscle weakness observed with MMT today, increased weakness on the LLE, most difficulty with hip flexion and knee extension today. Functional weakness also observed with sit to stand assessments, partially limited by WB status of her RUE following recovery from wrist fracture. Patient is at risk for falls based on time to complete TUG and repetitions completed during 30 second sit to stand, plan to complete Servin Balance Scale at upcoming visit. Based on examination findings Martha is a great candidate for outpatient therapy services to address strength, balance, and mobility to improve safety with mobility both in and outside of her home. Primary Functional Limitations impaired gait, slow dillon, muscle weakness, LLE weakness, stair navigation, endurance Plan of Care Rehabilitation Potential Good Physical Therapy Goals In 6 weeks: - Martha will be able to complete sit to stand transfers with equal WB through UE's for improved tolerance to mobility in regard to healing R wrist fracture. - Martha will navigate 4 steps with use of 1 railing to progress toward using her stairs at home. - Time to complete TUG with LRD will improve to <20 seconds for improved safety with transitions and gait. In 14 weeks: - Martha will ambulate 500' with LRD for increased endurance required for community ambulation. - Gross L hip strength will improve to 4/5 for improved ability to navigate stairs and complete transfers. - Patient will increase repetitions to 10 during 30 second sit to stand for decreased risk of falls during transfers. - Martha will complete TUG with LRD in <15 seconds for decreased risk of falling with transitional movements. Treatment Plan/Direct Interventions Gait Training,Manual Therapy, Neuromuscular Re-ed,Self-Care/ Home Management,Therapeutic Activities,Therapeutic Exercises Frequency/Duration 2x/week for 6 week followed by 1x/week for 8 weeks Patient Will Be Discharged From Therapy Completion of LTG(s),Skills Plateau,Independent w/HEP, Independently Progressing Evaluation Billing Untimed Code Treatment Minutes 35 Complexity Low Certification Information Initial Certification Date 12/18/23 Ending Certification Date 03/17/24 Provider Signature Shows Agreement With POC & Medical Necessity Physician Signature & Date Requested Please Sign/Date Here Physician Comment/Change : Physician NPI Number #
--- NOTE | 2024-03-11 12:05 | PT.OPDNX ---
Please review and sign the attached physical therapy progress/recertification note. Most recent visit on 03/11/24. Thank you. PT [facility] Daily Note PT [facility] Daily Note Start: 12/15/23 14:10 Freq: Status: Active Protocol: Document 03/11/24 07:21 TLQ (Rec: 03/11/24 12:03 TLQ [id number]) E-signed By Lore Bob DPT PT [facility] Daily Progress Note Visit Information Note Type Daily Note,Recert/Progress Note Visit Number [id number] Insurance Information Recert Due Date 03/17/24 Insurance Name Medicare B,Blue Cross/Blue Shield Medical Diagnosis Polyneuropathy G62.9 Treating Diagnosis Impaired balance R26.81 Abnormal gait R26.9 Muscle weakness M62.81 Referring MD Darshan Wright MD Subjective Subjective Feeling more confident walking in a parking lot with her cane. Still not comfortable going longer distances with her cane. Preferred Name Martha Precautions Treatment Precautions/Contraindications PMHx: R distal radius fracture (ORIF 10/18/23), depression, HTN, hx of TKA, arthritis, osteoporosis Weight Bearing Status Weight Bear as Tolerated Home Exercise Home Exercise Comments Access Code: [email or web address] URL: [email or web address] Prepared by: Lore Bob Exercises: - Sit to Stand with Arms Crossed - 2 x daily - 7 x weekly - 10 reps - Standing Romberg to 1/2 Tandem Stance - 2 x daily - 7 x weekly - 3 reps - 30 seconds hold - Narrow Stance with Counter Support - 2 x daily - 7 x weekly - 3 reps - 30 seconds hold - Staggered Stance Forward Backward Weight Shift with Counter Support - 2 x daily - 5 x weekly - 10 reps - Push-Up on Counter - 2 x daily - 5 x weekly - 10 reps - Standing March with Counter Support - 2 x daily - 5 x weekly - 10 reps - Standing Hip Abduction with Counter Support - 2 x daily - 5 x - Seated Calf Stretch with Strap - 1-2 x daily - 3 reps - 30 seconds hold weekly - 10 reps Objective Other/Pertinent Objective BALANCE 30 second STS: 5 reps, requires use of B arms on armrests, decreased WB through RUE (<10 reps female 70-74 indicates fall risk) --> 6 reps with use of B arms on armrests --> 7 reps with use of B arms / TU seconds, use of FWW (> 13.5 seconds indicates fall risk) --> 22 seconds with FWW --> 17 seconds with quad cane in R hand Servin Balance Scale: 37/56 (<45 /56 indicates fall risk) GAIT ambulates with use of FWW, decreased WB through RUE, forward trunk flexion gait speed: 0.48 m/s with FWW (<1.0 m/s indicates fall risk) STAIR NAVIGATION: step to pattern with 2 rails, R foot leading ascending, L foot leading descending ENDURANCE 2MWT: 58.19 meters with FWW, no rest breaks STRENGTH hip flexion R 4+, L 3+ --> R 5 , L 4 hip extension R 4, L 4- --> 5 B hip abduction R 4+, L 4 --> 5 B hip adduction R 4+, L 4- --> 5 B knee flexion R 4+, L 4 --> 5 B knee extension R 4+, L 3+ --> R 5, L 4+ ankle dorsiflexion 4-, hx of foot drop on L ankle plantarflexion: able to raise up on toes while seated Patient Instructed in Risks/Benefits Yes Therapeutic Exercise Therapeutic Exercise Minutes (minutes) 16 Therapeutic Exercise: To Restore for strength and endurance: Functional Status - precor recumbent bike (seat 6) L2 x6 minutes - mini marches using counter prn x20 reps total - mini lunges with counter support x10 reps each - side steps along counter, decreasing support as able 4x5 steps each - counter push ups x10 reps Therapeutic Activity Therapeutic Activity Minutes (minutes) 16 Therapeutic Activities Comments - sit to stand: with cushion on chair x10 reps without UE support, completed second set with 9#KB, no weight today - step ups on 4 box with unilateral counter support x10 reps each leg leading - NBOS on firm surface with e. c. x30 seconds *seated rest prn* other interventions not completed today: - modified tandem stance with counter support prn x30 second holds (ND) - romberg stance with head turns x30 second bouts, slow movements (ND) - static balance in NBOS on airex x30 second holds (ND) Gait & Stair Training Gait Training/Stairs Minutes (minutes) 8 Gait & Stair Training Comments - gait with single point cane: cane in R hand with step- through pattern, 1x300 ft with seated rest between, dillon decreases with fatigue - gait with single point cane: 1x150 ft with horizontal head turns x50 ft with slowed dillon, with cognitive task x100 ft fatigues - obstacle navigation with single point cane: over foam beam, on/off medium stepping stones with CGA (not done) Treatment Minutes Timed Code Treatment Minutes 40 Total Treatment Time 40 Billing Units Gait Training/Stairs Units 1 Therapeutic Activity Units 1 Therapeutic Exercise Units 1 Assessment/Impression Assessment/Impression Martha returns to physical therapy today reporting increased use of her cane for short distance community ambulation, continues to look at her feet while walking and reports not feeling confident to use her cane for longer distances at this time. Using her 4WW for longer distance community ambulation. Demonstrates improvements in lower extremity strength both with MMT and 30 second STS today, specific results indicated above under objective measures. Since starting this POC she has demonstrated good improvements in muscle strength and balance. Working on progressing functional strength for stair/step navigation and dynamic balance /gait endurance to navigate short and long distances in the community using LRD. Recommend up to 2-3 additional visit to continue this progression of function gait and mobility training. Plan of Care Physical Therapy Goals In 6 weeks: - Martha will be able to complete sit to stand transfers with equal WB through UE's for improved tolerance to mobility in regard to healing R wrist fracture. (MET) - Martha will navigate 4 steps with use of 1 railing to progress toward using her stairs at home. (MET) - Time to complete TUG with LRD will improve to <20 seconds for improved safety with transitions and gait. ( MET) In 14 weeks: - Martha will ambulate 500' with LRD for increased endurance required for community ambulation. ( PROGRESSING) - Gross L hip strength will improve to 4/5 for improved ability to navigate stairs and complete transfers. (MET) - Patient will increase repetitions to 10 during 30 second sit to stand for decreased risk of falls during transfers. (PROGRESSING) - Martha will complete TUG with LRD in <15 seconds for decreased risk of falling with transitional movements. ( PROGRESSING) Daily Plan of Care Continue per POC Daily Plan of Care Comments Next visit: reassess TUG, gait speed POC: quad strength functional strength: sit<> stand, stair elizabeth. gait/endurance with LRD balance Recertification Information Initial Certification Date 12/18/23 Recertification Start Date 03/17/24 Recertification Due Date 06/15/24 Reasons to Continue Skilled Therapy see assessment above Rehabilitation Potential Good Continued Plan of Care and Interventions Therapeutic exercise Therapeutic activity Gait training Stair training Neuromuscular re-education Patient education Provider Signature Shows Agreement With POC & Medical Necessity Physician Comment/Change Comment or Changes Physician NPI Number #
== END 2024-06-26 11:45 | disposition home or self-care (01) ==
PROVIDERS: PCP Family Medicine; Visit Provider Orthopaedic Surgery Sports Medicine
DX: G62.9 Polyneuropathy, unspecified (principal); Z98.890 Other specified postprocedural states; Z51.89 Encounter for other specified aftercare
CPT/HCPCS: 97110; 97116; 97140; 97161; 97530

== ENCOUNTER 2025-02-13 18:59 | Outpatient (CLI) | payer MEDICARE, BC, SELFPAY | END 2025-02-13 19:00 | disposition home or self-care (01) | PROVIDERS: PCP Family Medicine; Visit Provider Student in an Organized Health Care Education/Training Program | DX: R42 Dizziness and giddiness (principal); R11.0 Nausea | CPT/HCPCS: A0425; A0429 ==

== ENCOUNTER 2025-02-13 19:31 | Observation (INO) | payer MEDICARE, BC, SELFPAY ==
[2025-02-13] VITALS (7 sets, daily range): BP systolic 166; BP diastolic 89; PULSE 71–82; RESP 16; TEMP 36.6; O2SAT 80–96; BMI 37.1
--- NOTE | 2025-02-13 20:35 | ED_ITS ---
HPI - Nausea/Vomiting/Diarrhea General Time Seen by Provider: 20:35 Date Seen: 02/13/25 Chief complaint: Nausea/Vomiting Stated complaint: nausea, vomiting Time Seen by Provider: 02/13/25 20:35 Source: patient, RN notes reviewed and old records reviewed Mode of arrival: ambulatory Limitations: no limitations History of Present Illness HPI Narrative: Martha is a 75-year-old female who comes to the emergency room with her with a history of endometrial cancer status post hysterectomy postop day 1., problems with anesthesia including dizziness and nausea who comes to the [facility] for evaluation for nausea vertigo and feeling poorly. Martha notes that for 2 weeks she has had a cough. Initially started on [facility] room where many members of her family also became ill. She notes her has had the same. She notes that she actually went on a vacation after a week and when she returned the cough seemed to worsen a bit. When she presented for her surgery yesterday she was honest with the anesthesiologist and let them know about her continued cough. She did not receive a chest x-ray but they did do an albuterol treatment prior to general anesthesia. She notes that when she awoke however she was very dizzy and describes the room spinning. She was also nauseated and had some vomiting. They ended up keeping her overnight at male. She states that if she was perfectly still in bed she did well. This morning she was awoken at 0400 hours and made to walk to show that she was able to ambulate. At that point they took out a catheter that had been in place. She notes that she still had vertigo especially when being upright but they discharged her home. States that she had oxycodone and anti nausea medication to take at home but the side effects listed were dizziness and she was worried about worsening her symptoms. Patient notes that she has had a idiopathic peripheral neuropathy diagnosis by mail in the past that caused some weakness. She has actually improved from that but today notes that she is worried that her balance is quite off and that she felt like she was going to fall backwards. She was trying to use her walker at home. Sitting up increases her symptoms. No unusual hearing issues. Associated nausea: Yes Related Data Home Medications ?Medication ?Instructions ?Recorded ?Confirmed cholecalciferol (vitamin D3) 25 25 mcg PO DAILY 06/14/22 02/13/25 mcg (1,000 unit) tablet lisinopril 40 mg tablet 40 mg PO QDAY 06/14/22 02/13/25 rosuvastatin 10 mg tablet 10 mg PO DAILY 06/14/22 02/13/25 triamterene 37.5 1 tab PO DAILY 06/14/22 02/13/25 mg-hydrochlorothiazide 25 mg tablet fluoxetine 40 mg capsule 40 mg PO DAILY 09/22/23 02/13/25 acetaminophen 500 mg tablet 500 - 1,000 mg PO Q6H PRN 09/30/23 01/23/24 gabapentin 100 mg capsule See Rx Instructions PO .COMPLEX 09/30/23 02/13/25 ondansetron HCl 4 mg tablet 4 mg PO Q8H PRN 02/13/25 02/13/25 oxycodone 5 mg tablet PO 02/13/25 Previous Rx's ?Medication ?Instructions ?Recorded calcium carbonate (Oyster Shell 500 mg PO BID #60 tabs 10/03/23 Calcium 500) ondansetron 4 mg disintegrating 4 mg PO Q8H #15 tabs 10/18/23 tablet Allergies Allergy/AdvReac Type Severity Reaction Status Date / Time shellfish derived AdvReac Verified 01/23/24 09:09 Review of Systems Status of ROS: Reports: 10 or more systems reviewed and unremarkable except as noted in History and below Const: Denies: fever or chills Eyes: Denies: change in vision ENMT: Reports: vertigo; Denies: throat pain or nasal congestion Cardio: Denies: chest pain, swelling of feet/ankles or shortness of breath with exertion Resp: Reports: cough; Denies: shortness of breath GI: Reports: nausea and vomiting; Denies: abdominal pain or diarrhea : Denies: painful urination Neuro: Reports: vertigo; Denies: headache PFSH PFSH Medical History Ulcer of esophagus without bleeding ?K22.10 - Ulcer of esophagus without bleeding (ICD-10) Left peroneal nerve palsy ?G57.32 - Lesion of lateral popliteal nerve, left lower limb (ICD-10) Small vessel disease, cerebrovascular ?I67.9 - Cerebrovascular disease, unspecified (ICD-10) Major depressive disorder ?F32.9 - Major depressive disorder, single episode, unspecified (ICD-10) Benign neoplasm of colon ?D12.6 - Benign neoplasm of colon, unspecified (ICD-10) Essential hypertension ?I10 - Essential (primary) hypertension (ICD-10) High cholesterol ?E78.00 - Pure hypercholesterolemia, unspecified (ICD-10) Shingles ?B02.9 - Zoster without complications (ICD-10) Kidney stones ?N20.0 - Calculus of kidney (ICD-10) Surgical History History of open reduction and internal fixation (ORIF) procedure (10/18/23) ?Z98.890 - Other specified postprocedural states (ICD-10) H/O lithotripsy (~2008) ?Z98.890 - Other specified postprocedural states (ICD-10) H/O dilation and curettage ?Z98.890 - Other specified postprocedural states (ICD-10) H/O esophagogastroduodenoscopy ?Z98.890 - Other specified postprocedural states (ICD-10) H/O colonoscopy ?Z98.890 - Other specified postprocedural states (ICD-10) History of cholecystectomy ?Z90.49 - Acquired absence of other specified parts of digestive tract (ICD- 10) Previous section (1981) ?Z98.891 - History of uterine scar from previous surgery (ICD-10) History of medial meniscus repair of left knee (12/08/06) ?Z98.890 - Other specified postprocedural states (ICD-10) 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) ?Z96.651 - Presence of right artificial knee joint (ICD-10) Status post left knee replacement (12/30/21) ?Z96.652 - Presence of left artificial knee joint (ICD-10) Family History Mother Breast cancer Stroke Father Diabetes Cardiovascular disease Sister Osteoporosis Maternal Grandfather Alzheimers disease Brother Stroke Social History Narrative: Lives independently with in a handicap accessible house. Lifelong nonsmoker. 1-2 glasses of wine per week. FULL CODE. What is your current living situation?: I presently have a place to live Problems where you live: no known problems Problems where you live details: n/a In the past 12 months, utilities in danger of being shut off: no In past 12 months, lack of transportation kept you from medical appts, meetings, work, or getting things needed for daily living: no In the past 12 mos, have been you worried that your food would run out before you had money to buy more?: never true In the past 12 mos, the food you bought just didn't last and you didn't have money to buy more?: never true Highest level of school completed/degree received: Doctoral degree Smoking Status: Never smoker Do you use any of these nicotine containing products: None Second hand tobacco smoke exposure: No How often do you have a drink containing alcohol: 2-4 times a month How often do you have six or more drinks on one occasion: Never AUDIT-C Alcohol total score: 2 Non-prescribed substance use: denies use Caffeine: Yes (coffee) How often does anyone, including family, friends and others, physically hurt you : never How often does anyone, including family, friends and others, insult or talk down to you: never How often does anyone, including family, friends and others, threaten you with harm: never How often does anyone, including family, friends and others, scream or curse at you: never service: No Exam Narrative: Exam Narrative: Patient is alert and oriented. Mentation is normal. EOM is full pupils equal round and reactive no nystagmus in the semi recumbent position. Head is atraumatic TMs without fluid or erythema. Eyebrow raise smile intact. She is articulate in speech. Neck is supple without lymphadenopathy. Heart with regular rate and rhythm and lungs are clear but she does have decreased breath sounds in the bases left greater than right. Abdomen is soft it is nontender. Patient has Steri-Strips over surgical wounds that are not oozing. There is significant bruising noted in the right lower quadrant but again no underlying tenderness or fluctuance. Lower extremities without edema. Patient is able to raise all extremities and his dextrose. Upper extremity strength is intact. I do sit patient up. She does have some nystagmus when sitting up when looking in the extremes of view but more prominently on the left. She does feel better at rest. Const: Vital Signs, click to edit/add: Vital Signs - 24 hr 02/13/25 19:37 Temperature 98 F Pulse Rate [Pulse Oximeter] 71 Respiratory Rate 16 Blood Pressure [Ri ght Upper Arm] 166/89 H Pulse Oximetry 96 Oxygen Delivery Me thod Room Air Course Course ED Course: History is somewhat challenging as patient has overlapping symptoms. Patient felt that this may be an anesthesia reaction as she has had that in the past. However, they had changed her anesthesia in December after she had a procedure and really had no problems. According to her they use the same anesthesia as that time. No reports of new numbness or tingling. History of vertigo in the past and further in the conversation she reports lightheadedness prior to the surgery. Also of issue is this ongoing respiratory cough that other members of the family have had most likely indicating viral infection. Will add a chest x-ray to check for any pneumonia. Because vertigo symptoms have been ongoing for 24 hours I did not activate concerns for stroke. Her symptoms seem to match more with a a peripheral vertigo. However given her age I have ordered a CT of the head. Will also check a CBC, comprehensive panel, urinalysis, troponin EKG. Will treat patient with 1 L of saline as well as oral Ativan 0.5 mg p.o.. Reevaluation(s) Reevaluation #1: Patient noted improvement with the Ativan and Zofran. Head CT without evidence of acute stroke. Did have patient get up to walk and while she is improved still feels unbalanced. Liver enzymes are elevated compared to previous. Patient has no right upper quadrant pain. Vital Signs Vital signs: Initial Vital Signs Temperature 98 F 02/13/25 19:37 Temperature Source Temporal Artery Scan 02/13/25 19:37 Pulse Rate 71 02/13/25 19:37 Respiratory Rate 16 02/13/25 19:37 Blood Pressure 166/89 H 02/13/25 19:37 Blood Pressure Mean 114 H 02/13/25 19:37 Blood Pressure Position Sitting 02/13/25 19:37 Pulse Oximetry 96 02/13/25 19:37 Oxygen Delivery Method Room Air 02/13/25 19:37 Vital Signs Temperature 98 F 02/13/25 19:37 Pulse Rate 71 02/13/25 19:37 Respiratory Rate 16 02/13/25 19:37 Blood Pressure 166/89 H 02/13/25 19:37 Pulse Oximetry 96 02/13/25 19:37 Oxygen Delivery Method Room Air 02/13/25 19:37 Temperature 98 F 02/13/25 19:37 Pulse Rate 71 02/13/25 19:37 Respiratory Rate 16 02/13/25 19:37 Blood Pressure 166/89 H 02/13/25 19:37 Pulse Oximetry 96 02/13/25 19:37 Oxygen Delivery Method Room Air 02/13/25 19:37 Medications Administered Medications: Discontinued Medications Generic Name Dose Route Start Last Admin Trade Name Sonyq PRN Reason Stop Dose Admin Sodium Chloride 1,000 mls @ 1,000 mls/hr 02/13/25 21:08 02/13/25 23:05 0.9 % Sodium Chloride 1000 Ml IV 02/13/25 22:07 Infused .Q1H MAEVE Infusion Lorazepam 0.5 mg 02/13/25 21:06 02/13/25 21:28 Lorazepam 0.5 Mg Tablet PO 02/13/25 21:07 0.5 mg ONCE ONE Administration Ondansetron HCl 4 mg 02/13/25 21:08 02/13/25 21:28 Ondansetron 2 Mg/Ml Inj IVP 02/13/25 21:09 4 mg ONCE ONE Administration MDM - Nausea/Vomiting/Diarrhea MDM Narrative Medical decision making narrative: 1. Vertigo-exam suggests a peripheral process but patient notes imbalance which is likely complicated by pre-existing peripheral neuropathy. This has occurred after 4 hour surgical procedure under general anesthesia yesterday for hysterectomy secondary to endometrial cancer. Fluids are given. Oral Ativan did seem to greatly help symptoms however they are still present. Will suggest admission as she does not feel safe going home. MRI of the brain for ongoing vertigo as needed in the morning. 2. Nausea-resolved with Zofran 3. Cough-no evidence of underlying pneumonia and O2 sats are reassuring. This most likely represents a post viral cough. 4. Elevated liver enzymes-ALT AST in the 100s. Patient is absent of gallbladder. No right upper quadrant pain. Likely needs ultrasound for further evaluation. 4. Disposition-care transferred to [facility]. Dr Whipple accepts this patient for transfer to the floor. Does request CTA chest abdomen and pelvis and urinalysis prior to leaving the ED. patient is receptive of this plan. Medical Records Attestation: I reviewed the patient's medical records. Lab Data Attestation: I reviewed the patient's lab results. Labs: Lab Results 02/13/25 02/13/25 Range/Units 21:30 21:33 WBC 15.04 H (4.50-11.00) K/uL RBC 4.03 (4.00-5.20) m/uL Hgb 12.1 (12.0-16.0) gm/dL Hct 36.8 (33.0-51.0) % MCV 91 (80-100) fL MCH 30 (26-34) pg MCHC 33 (32-36) gm/dL RDW Coeff of Vilma 12.9 (11.5-15.5) % Plt Count 224 (140-440) K/uL Neut % (Auto) 85.1 H (42.0-72.0) % Lymph % (Auto) 7.4 L (20-44) % Stearns % (Auto) 6.6 (0.0-11.0) % Eos % (Auto) 0.6 (0.0-7.0) % Baso % (Auto) 0.1 (0.0-3.0) % Neut # (Auto) 12.80 H (1.7-7.0) K/uL Lymph # (Auto) 1.10 (0.90-2.90) K/uL Stearns # (Auto) 1.00 H (0.00-0.90) K/UL Eos # (Auto) 0.10 (0.00-0.50) K/uL Baso # (Auto) 0.00 (0.00-0.30) K/uL Abs Immat Gran (auto) 0.00 (0.00-0.30) K/uL Imm/Tot Granulo (auto) 0.2 % Sodium 138 (135-149) mmol/L Potassium 3.9 (3.6-5.1) mmol/L Chloride 104 (96-114) mmol/L Carbon Dioxide 29 (20-32) mmol/L Anion Gap 5 L (7-15) mEq/L BUN 23 (7-30) mg/dL Creatinine 0.5 (0.5-1.5) mg/dL Estimated Creat Clear 45.50 Estimated GFR 98 ml/min Glucose 125 H (60-115) mg/dL Calcium 8.4 (8.4-10.6) mg/dL Total Bilirubin 0.7 (0.1-1.5) mg/dL AST 105 H (12-35) U/L ALT 154 H (4-35) U/L Alkaline Phosphatase 64 (40-150) U/L Total Protein 6.7 (6.0-8.3) g/dL Albumin 3.6 (3.3-5.0) g/dL SARS-CoV-2 (PCR) Negative SARS-CoV-2 (Negative) Influenza Type A (PCR) Negative PCR FLU A (Negative) Influenza Type B (PCR) Negative PCR FLU B (Negative) RSV (PCR) Negative PCR RSV (Negative) Imaging Data Chest x-ray: Attestation: I have reviewed the pertinent imaging results. Radiologist's impression: Cardiovascular and mediastinum: Heart size and vasculature are normal in caliber and appearance. Lungs and pleural spaces: Left basilar atelectasis. No sign of infiltrate or mass. No sign of pleural effusion. No pneumothorax. Bones and soft tissues: No significant findings. IMPRESSION: Left basilar atelectasis. No acute or significant findings. CT scan - head: Attestation: I have reviewed the pertinent imaging results. Radiologist's impression: Brain: No acute hemorrhage. No acute infarct. No significant mass effect or midline shift. No gross evidence of a mass lesion or cerebral edema. Mild chronic microvascular ischemic disease. Ventricles: No acute abnormality appreciated. Orbits, sinuses, mastoids: No acute abnormality appreciated. Mild sinus disease. Calvarium and soft tissues: No acute abnormality appreciated. Impression: No acute abnormality appreciated. ECG Data Attestation: I personally reviewed and interpreted this ECG as follows: ECG interpretation date: 02/13/25 Interpretation: EKG by my read shows sinus rhythm at a rate of 75. No acute ST or T-wave changes Discharge Plan Discharge Prescriptions: No Action cholecalciferol (vitamin D3) 25 mcg (1,000 unit) tablet 25 mcg PO DAILY rosuvastatin 10 mg tablet 10 mg PO DAILY triamterene-hydrochlorothiazid 37.5-25 mg tablet 1 tab PO DAILY lisinopril 40 mg tablet 40 mg PO QDAY fluoxetine 40 mg capsule 40 mg PO DAILY gabapentin 100 mg capsule See Rx Instructions PO .COMPLEX Patient Comments: 200 mg TIDWM, 300 mg HS Rx Instructions: orally; acetaminophen 500 mg tablet 500 - 1,000 mg PO Q6H PRN calcium carbonate [Oyster Shell Calcium 500] 500 mg calcium (1,250 mg) Tablet 500 mg PO BID Qty: 60 0RF ondansetron 4 mg tablet,disintegrating 4 mg PO Q8H Qty: 15 0RF ondansetron HCl 4 mg tablet 4 mg PO Q8H PRN oxycodone 5 mg tablet PO Follow Up/Referrals: Wandy Sterling MD [Primary Care Provider] -
--- NOTE | 2025-02-13 21:06 | CRLHL7_ITS ---
For Patients: As a result of the Cures Act, medical imaging exams and procedure reports are released immediately into your electronic medical record. You may view this report before your referring provider. If you have questions, please contact your health care provider. INDICATION: Chest congestion. TECHNIQUE: Chest 1 views. COMPARISON: None. FINDINGS: Cardiovascular and mediastinum: Heart size and vasculature are normal in caliber and appearance. Lungs and pleural spaces: Left basilar atelectasis. No sign of infiltrate or mass. No sign of pleural effusion. No pneumothorax. Bones and soft tissues: No significant findings. IMPRESSION: Left basilar atelectasis. No acute or significant findings. Dictated by Sánchez Lanier MD @ 02/13/2025 10:00:37 PM (Electronically Signed)
--- NOTE | 2025-02-13 21:15 | CRLHL7_ITS ---
For Patients: As a result of the Century Cures Act, medical imaging exams and procedure reports are released immediately into your electronic medical record. You may view this report before your referring provider. If you have questions, please contact your health care provider. Indication: Vertigo Technique: Noncontrast CT through the head with multiplanar reformats Comparison: CT head performed 03/08/2019 Findings: Brain: No acute hemorrhage. No acute infarct. No significant mass effect or midline shift. No gross evidence of a mass lesion or cerebral edema. Mild chronic microvascular ischemic disease. Ventricles: No acute abnormality appreciated. Orbits, sinuses, mastoids: No acute abnormality appreciated. Mild sinus disease. Calvarium and soft tissues: No acute abnormality appreciated. Impression: No acute abnormality appreciated. Please note that all CT scans at this facility use dose modulation, iterative reconstruction, and/or weight-based dosing when appropriate to reduce radiation dose to as low as reasonably achievable. Dictated by Regulo Ferrer MD @ 02/13/2025 10:33:22 PM (Electronically Signed)
[2025-02-13] MEDS: ONDANSETRON 2 MG/ML inj 4 MG IVP (21:28)
[2025-02-13] MEDS: 0.9 % SODIUM CHLORIDE 1000 ml 1,000 ML IV (21:28)
[2025-02-13] MEDS: LORazepam 0.5 MG TABLET PO (21:28)
[2025-02-13 21:40] LABS: Basophils Percent Auto 0.1 % (0.0-3.0); Eosinophils Percent Auto 0.6 % (0.0-7.0); Hematocrit 36.8 % (33.0-51.0); Hemoglobin* 12.1 gm/dL (12.0-16.0); Immature Granulocytes Pct Auto 0.2 %; Lymphocytes Percent Auto 7.4 % (20-44); Mean Corpuscular HGB Conc 33 gm/dL (32-36); Mean Corpuscular Hemoglobin 30 pg (26-34); Mean Corpuscular Volume 91 fL (80-100); Monocytes Percent Auto 6.6 % (0.0-11.0); Neutrophils Percent Auto 85.1 % (42.0-72.0); Platelet Count* 224 K/uL (140-440); RDW Coefficient of Variation % 12.9 % (11.5-15.5); Red Blood Count 4.03 m/uL (4.00-5.20); White Blood Count* 15.04 K/uL (4.50-11.00)
[2025-02-13 21:41] LABS: Slide Review Reflex No
--- OUTSIDE RECORDS SUMMARY | 2025-02-13 21:52 | XMS_ITS | Encounter Summary ---
Author Organization [facility] Address [address] [place] [address] Care Team Providers Care Faucet Polisher Name Role Phone Elsewhere, Pcp Primary Care Provider Unavailabl e Reason for Referral * Outpatient (Routine) - Closed Specialty Diagnoses / Procedures Referred By Shawn gomez Referred To Contact Obstetrics and Gynecology Diagnoses Cancer Uterus Endometrial Personal History Jayy Miller M.D. [address] [place] [address] Phone: tel: fax: [facility] Referral ID Status Reason Start Date Expiration Date Visits Re quested Visits Authorized [id number] Closed 12/25/2024 06/26/2026 1 1 Encounter Details Date Type Department Care Team (Late st Contact Info) Description 12/24/2024 Results Follow-Up Department of Obstetrics and Gynecology in [place], [place] [address] [place] [phone] Jayy Miller M.D. [address] [place] [phone] Surgical Pathology, Frozen Lab Social History Tobacco Use Types Packs/Day Years Used Date Smoking Tobacco: Never Passive Smoke Exposure: Never Smokeless Tobacco: Never Alcohol Use Standard Drinks/Week Comments Yes 3 (1 standard drink = 0.6 oz pur e alcohol) [facility] Utilities Answer Date Recorded In the past 12 months has th e electric, gas, oil, or water company threatened to shut off services in your home? Yes 12/26/2024 PHQ-2 Answer Date Recorded PHQ-2 Score 2 [...] the money to buy more. Never true 12/27/19 Within the past 12 months, t he food you bought just didn't last and you didn't have money to get more. Never true 12/26/2024 PRAPARE - Transportation Answer Date Re corded In the past 12 months, has l ack of transportation kept you from medical appointments or from getting medications? No 12/08 In the past 12 months, has l ack of transportation kept you from meetings, work, or from getting things needed for daily living? No 12/26/2024 Nutrition Answer Date Recorded On average, how [...] your living situation today? I have a [facility] place to live 12/26/2024 Comments No Sex and Gender Information Value Date Recorded Sex Assigned at Female 10/29/2023 4:34 PM [employer] Legal Sex Female 8:57 AM [employer] Gender Identity Female 10/29/2023 4:34 PM [employer] Sexual Orientation Straight 10/29/2023 4: 34 PM [employer]ICER documented as of this encounter Plan of Treatment Scheduled Referrals Name Type Priority Associated Diagnoses Orde r Schedule Obstetrics and Gynecology - Gynecologic oncology surgery consult (clinic) Outpatient Referral Routine Cancer Uterus Endometrial Personal History Expected: 12/25/2024, Expires: 03/27/2026 documented as of this encounter Visit Diagnoses Diagnosis Cancer Uterus Endometrial Personal History- Primary documented in this encounter Care Teams Faucet Polisher Relationship Specialty Start Date End Date Elsewhere, Pcp PCP - General Internal Medicine 09/11/23 documented as of this encounter
--- OUTSIDE RECORDS SUMMARY | 2025-02-13 21:52 | XMS_ITS | Encounter Summary ---
Author Organization [facility] Address [address] [place] [address] Care Team Providers Care Clay Molder Name Role Phone Elsewhere, Pcp Primary Care Provider Unavailabl e Encounter Details Date Type Department Care Team (Late st Contact Info) Description 02/12/2025 7:15 AM CDT - 02/12/2025 12:27 PM CDT Surgery [facility] OR [address] [place] [address] Abigail Rasmussen M.D. [address] [place] [address] ROBOTIC-ASSISTED HYSTERECTOMY TOTAL ABDOMINAL. Social History Tobacco Use Types Packs/Day Years Used Date Smoking Tobacco: Never Passive Smoke Exposure: Never Smokeless Tobacco: Never Alcohol Use Standard Drinks/Week Comments Yes 2 (1 standard drink = 0.6 oz pur e alcohol) [facility] Utilities Answer Date Recorded [...] your living situation today? I have a [facility] place to live 02/13/2025 Comments No Sex and Gender Information Value Date Recorded Sex Assigned at Female 10/29/2023 4:34 PM MANAGEMENT EXPERT Legal Sex Female 8:57 AM MANAGEMENT EXPERT Gender Identity Female 10/29/2023 4:34 PM MANAGEMENT EXPERT Sexual Orientation Straight 10/29/2023 4: 34 PM MANAGEMENT EXPERT documented as of this encounter Last Filed [...] AM CDT DISCHARGE SUMMARY BRIEF OVERVIEW Hospital: [facility] Discharge Provider: Abigail Rasmussen M.D. Primary Team: [facility] Gynecologic Surgery - Rasmussen Primary Care [...] Abigail Rasmussen M.D.Warring, Simrit K, M.D., M.S. [facility] OR DISCHARGE DISPOSITION Home or Self Care [1] ACTIVE ISSUES REQUIRING FOLLOW UP See AVS OUTPATIENT FOLLOW UP For appointment details refer to your Patient Appointment Guide. TEST RESULTS PENDING AT DISCHARGE Pending Labs Order Current Status [facility] Endometrial Carcinoma Panel, Next-Generation Sequencing, Tumor Collected (02/12/25 105) Mismatch Repair (MMR) Protein Immunohistochemistry Only, Tumor Collected (02/12/25 105) Cytology Non-SENIOR PARTNER In process Surgical Pathology, Frozen Lab Preliminary [...] OF PROCEDURE(S): Robotic-Assisted Total Abdominal Hysterectomy, Left Sondheimer Pelvic Lymphadenectomy PROCEDURAL COMPLICATIONS: None POSTOPERATIVE COURSE: Uncomplicated. The patient was admitted POD#0 for postanesthesia dizziness. On POD#1 her dizziness resolved and she ambulated without difficulty. She was discharged home after meeting milestones. PATHOLOGY: Will follow-up final pathology. CYTOLOGY: Order Name Source Comment Collection Info Order Time [facility] ORDER, B Blood, Venous PINK PINK PINK PINK PINK PINK PINK PINK PINK PINK PI: Justyn Cruz M.D. SC: Lubna Forbes R.N. IRB#: [id number] GRANADO: [id number] Study Alias: [facility] Subject ID: [id number] Visit: ENROLLMENT Collection Instructions: Draw tubes provided in Kit Special Instructions: * Forward this document and samples to Juju CHIRINOS * Study Collection only? YES / NO 02/12/2025 6:57 AM Region: [facility] Number of tubes for this collection [...] be released immediately? Manual release only CYTOLOGY NON-SENIOR PARTNER Pelvis Collected By: Abigail Rasmussen M.D. 02/12/2025 [...] arranged with your surgical team at the [place] [address]. You will be contacted with your appointment details. Any questions regarding your appointment shouldbe directed to the leasing coordinator at . CONTACT INFORMATION Instructions and Contact Information for Concerns, Issues, or Problems -If you experience a medical emergency, please call your local emergency response telephone number.For other questions, call the [facility] 24-hr telephone number: . Ask to be [...] For urgent questions and/or concerns, call the [facility] marble machine operator at and request to speak to the physician safety companion for your surgical team. NOTE TO CAREGIVERS - If the patient appears very ill or is not easy to arouse take her directly to the nearest emergency room or call [phone] for emergency assistance. Do not wait to [...] you want to locate the nearest MARY-authorized handmade tile artist to you, this can be found at: https://apps.deadiversion.2CatalyzePodPoster.gov/pubdispsearch/spring/ If you currently smoke cigarettes, cigars, e-cigarettes, or pipes; chew tobacco; or have done so inthe past 12 months, it is important to quit. Talk with your physician about different ways to stop smoking. For additional information about smoking cessation, go to: http://www.[facility].org/stop-smoking or call 658-418-7259. CONSULTS ORDERED DURING THIS ADMISSION IP CONSULT TO CARE MANAGEMENT CONDITION AT DISCHARGE stable Discharge instructions were provided to the patient and caregiver(s). documented in this encounter Discharge Instructions * Discharge Instructions* Adair Zarate - 02/13/2025 8:23 AM CDT You were discharged from the [facility] Gynecologic Surgery - Rasmussen Service. Please identify this service name if you call with questions after hospitalization. * Attachments The following attachments cannot be sent through Care Everywhere. * Ondansetron (By mouth, Into the mouth) (Serbian) documented in this encounter Medications at Time [...] for SIC teaching. Chely Rogers M.D., M.S. SENIOR PARTNER ONC Fellow Please direct questions/concerns to service [...] the patient that in our practice at [facility], we sometimes perform overlapping surgeries, meaning that [...] Discharge Planning (ESDP 15) Previous Assessment: No Retail Loss Prevention Investigator Services Used: No Primary Language: Serbian Retail Loss Prevention Investigator Services Used: No Person(s) Present During Interview: patient History of Present Illness #1 Malignant Neoplasm Of Uterus (HCC) Social History Marital Status: Family / Household: Lives with Support System: spouse, children, family members, and friends/neighbors Primary Caregiver: self Social Drivers of Health with Concerns Utilities: At Risk (12/26/2024) [facility] Utilities Threatened with loss of utilities: Yes Intimate Partner Violence: Not on file OBJECTIVE Finance/Insurance Primary insurance: MEDICARE A AND B Secondary insurance: [employer] benefits: No Advance Directives Legal Decision Maker: Self Baseline Functional Status Baseline Activities of Daily Living Mobility: Modified independent Dressing: Independent Feeding: Independent Bathing: Independent Grooming: Independent Toileting: Independent Behavior: Pleasant, Appropriate, Calm, Cooperative, Oriented Communication: Talks, Understands speaking, Understands Serbian Shopping: Independent Medication Management: Independent Housekeeping: Independent Meal Prep: Independent Assistive Devices: Cane, Tub/shower chair/bench, Grab bars - toilet, Grab bars - wall, Hand held shower, Eyeglasses, Cellphone, Blood pressure cuff Transportation: Independent to drive Managing Finances: Independent Baseline Services/Resources Primary care clinic and provider: PCP Wandy Sterling MD [address] [place] [address] Additional Resources: Additional Services: NA Anticipated Needs Functional Status: None Assistive Devices: None Anticipated Modifications to the Patient's Home: None Transportation Needs: Support from family Does the patient need discharge transport arranged?: No Phone Number for Ride/Caregiver: Conrado [phone] Anticipated Discharge Destination: Home or Self Care Referrals Initiated: None project systems engineer provided Care Management Brochure ([id number]), information regarding the dismissal process, and the Senior Linkage Line ([place] Board on Aging) handout. ASSESSMENT / PLAN ASSESSMENT: The project systems engineer [facility] with [facility] to discuss her current hospitalization and home going needs. The patient was unaccompanied. The patient was a reliable historian. The role of RNCase Heddler Tier was reviewed. The patient reviewed her prior level of care and support system. The patient receives support from her , children, and extended family. When case management entered the room, the patient was lying in bed watching television, alert, andoriented. Upon meeting with the patient, the watch case polisher introduced themselves, their role within the multidisciplinary [...] be provided by her and children . project systems engineer recommendations include: home delivery of groceries and [...] will be provided by family-- Conrado . project systems engineer encouraged the patient to reach out with [...] Post-op Diagnosis Malignant Neoplasm Of Uterus (HCC) Museum Informatics Specialist A licensed investment sales assistant actively participated and was necessary for [...] Non metastatic. Method: ICG. Left lymph node: Sondheimer Lymph Nodes. Left lymph node: External iliac. Right lymph node: Not Assessed. Description of Procedure The patient was prepped and draped in synchronous position in [facility]. After sterile prep and drape, a [...] location and the right lateral location. An design assistant port was placed in the right paramedian location. We then took down the omental adhesion using Endoshears. We were then able to place the eugenio-umbilical robotic trocar. The robot was then docked. The patient had a previous bilateral salpingo-oophorectomy. We began by dividing the round ligament, developing each pararectal space, and identifying the ureter. Sondheimer lymph nodes were visualizedon the left and [...] compromised. Hemostasis was satisfactory. The fascia of design assistant port was closed with the Salty-Camron [...] OF PROCEDURE(S): Robotic-Assisted Total Abdominal Hysterectomy, Left Sondheimer Pelvic Lymphadenectomy PROCEDURAL COMPLICATIONS: None POSTOPERATIVE COURSE: Uncomplicated. The patient was admitted POD#0 for postanesthesia dizziness. On POD#1 her dizziness resolved and she ambulated without difficulty. She was discharged home after meeting milestones. PATHOLOGY: Will follow-up final pathology. CYTOLOGY: Order Name Source Comment Collection Info Order Time [facility] ORDER, B Blood, Venous PINK PINK PINK PINK PINK PINK PINK PINK PINK PINK PI: Justyn Cruz M.D. SC: Lubna Forbes R.N. IRB#: [id number] GRANADO: [id number] Study Taylor: Paul Subject ID: [id number] Visit: ENROLLMENT Collection Instructions: Draw tubes provided in Kit Special Instructions: * Forward this document and samples to TREVEve APPIAH_Carlee * Study Collection only? YES / NO 02/12/2025 6:57 AM Region: [facility] Number of tubes for this collection [...] be released immediately? Manual release only CYTOLOGY NON-SENIOR PARTNER Pelvis Collected By: Abigail Rasmussen M.D. 02/12/2025 [...] arranged with your surgical team at the [place] [address]. You will be contacted with your appointment details. Any questions regarding your appointment shouldbe directed to the leasing coordinator at . CONTACT INFORMATION Instructions and Contact Information for Concerns, Issues, or Problems -If you experience a medical emergency, please call your local emergency response telephone number.For other questions, call the [facility] 24-hr telephone number: . Ask to be [...] For urgent questions and/or concerns, call the [facility] marble machine operator at and request to speak to the physician safety companion for your surgical team. NOTE TO CAREGIVERS - If the patient appears very ill or is not easy to arouse take her directly to the nearest emergency room or call [phone] for emergency assistance. Do not wait to [...] programs or using U.S. Drug Enforcement Agency (MAYR)-authorized collectors. Otherwise, the following opioid medications can be flushed down the toilet when the medication is no longer needed: Oxycodone tablets, Hydromorphone tablets, Percocet tablets, Morphine tablets, Oxycontin tablets. If you want to locate the nearest MARY-authorized handmade tile artist to you, this can be found at: https://apps.deadiversion.2CatalyzePodPoster.gov/pubdispsearch/spring/ If you currently smoke cigarettes, cigars, e-cigarettes, or pipes; chew tobacco; or have done so inthe past 12 months, it is important to quit. Talk with your physician about different ways to stop smoking. For additional information about smoking cessation, go to: http://www.[facility].org/stop-smoking or call 754-313-5794. documented in this encounter Plan of Treatment Pending Results Name Type Priority Associated Diagnoses Date /Time Surgical Pathology, Frozen Lab Pathology and Cytology Routine Malignant Neoplasm Of Uterus (HCC) 02/12/2025 10:13 AM CDT Scheduled Orders Name Type Priority Associated Diagnoses Orde r Schedule Mismatch Repair (MMR) Protei n Immunohistochemistry Only, Tumor Lab Routine Malignant Neoplasm Of Uterus (HCC) Release Upon Ordering for 1 Occurrences starting 02/12/2025 until 02/21/2025 [facility] Endometrial Carcinoma Panel, Next-Generation Sequencing, Tumor Lab Routine Malignant Neoplasm Of Uterus (HCC) Release Upon Ordering for 1 Occurrences starting 02/12/2025 until 02/21/2025 Scheduled Referrals Name Type Priority Associated Diagnoses Order Schedule Obstetrics and Gynecology Post Op (clinic) Outpatient Referral Routine Expected: 03/20/2025 (Approximate), Expires: 02/13/2028 documented as of this encounter Goals Goal Patient Goal Type Associated Problems Recent Progress Patient-Stated? Author [facility] HYSTERECTOMY EIN OR CAH ON RAMP ([id number]) Care Plan [facility] HYSTERECTOMY EIN OR CAH ON RAMP ([id number]) No Hanane York R.N. documented as of this encounter Procedures Procedure Name Priority Date/Time Associated Diagnosis Comments REMOTE OXIMETRY MONITORING CONT. Routine 02/13/2025 1:35 AM CDT REMOTE OXIMETRY MONITORING CONT. Routine 02/13/2025 1:35 AM CDT ADULT OXYGEN THERAPY Routine 02/12/2025 12:20 PM CDT SURGICAL PATHOLOGY, FROZEN LAB Routine 02/12/2025 10:13 AM CDT Malignant Neoplasm Of Uterus (HCC) CYTOLOGY NON-SENIOR PARTNER Routine 02/12/2025 9:35 AM CDT Malignant Neoplasm Of Uterus (HCC) [facility] ORDER, B Routine 8:00 AM CDT Clinical Research Exam LYMPHADENECTOMY SENTINEL PELVIC 02/12/2025 7:35 AM CDT Malignant Neoplasm Of Uterus (HCC) ROBOTIC-ASSISTED HYSTERECTOMY TOTAL ABDOMINAL 02/12/2025 7:35 AM CDT Malignant Neoplasm Of Uterus (HCC) documented in this encounter Results * Cytology Non-SENIOR PARTNER (02/12/2025 9:35 AM CDT) 02/13/2025 3:22 PM [...] M.D. LAB SURG PATH ORDERABLES Final Result [facility] [address] [place] [address], [facility] DTL [address] [place] [address] * [facility], Blood (02/12/2025 8:00 AM CDT) Number of Specimens 5 02/12/2025 8:00 AM CDT HSS Blood (Blood, Venous) 02/12/2025 8:00 AM CDT 02/12/2025 8:00 AM CDT Justyn Cruz M.D. LAB RESEARCH NO RESULT ROUTING Final Result [facility] [place] [address] [place] [address], [facility] H[facility] [address] [place] [address] documented in this encounter Visit Diagnoses Diagnosis [...] (PWA) 0745 (Given - Provider: Geri Barron RChavaN.) acetaminophen tablet 1,000 mg (TylenoL) 1,000 mg, oral, Every 6 hours, First dose (after last modification) on Jennifer 02/13/25 at 0230, not to exceed 4 grams in 24 hours. 0142 (Given - Provid er: Melanie Mccormick RChavaN.)0734 (Given - Provider: Justyn Carpio RMacie.) aprepitant injection 32 mg (Aponvie) (COMPLETED) 32 mg, intravenous, Once, On Mon02/12/25 at 0730, For 1 dose, Pre-Op, Restriction Criteria (Pharmacy will review and approve if criteria met): Meet restriction criteria 0745 (Given - Provider: Geri Barron RChavaN.) ceFAZolin injection 2,000 mg (Ancef) (COMPLETED) 2,000 [...] FLUoxetine orderable was interchanged for FLUoxetine tablet/capsule 09 (Given - Provid er: Justyn Carpio R.N.) [...] benefit. 1744 (Given - Provider: Tiffanie TubbsSChavaNChava, R.N.)2503 (Given - Provider: Melanie Mccormick R.N.) 0435 [...] from OR - Provider: Abigail Marquez M.S.NChava, RChavaNChava)1740 (New Bag - Provider: Liliana Tubbs, R.NChava)2043 (New Bag - Provider: Melanie Mcocrmick R.N.) 0508 (Rate/Dose Verify - Provider: Melanie [...] 6 hours 1337 (Given - Provider: Erick J Kluczny, R.N.) acetaminophen tablet 1,000 mg (TylenoL) (CANCELED) 1,000 mg, oral, Every 6 hours PRN, pain, Starting on Mon02/12/25 at 1930, not to exceed 4 grams in 24 hours. 192 (Given - Provider: Cristy Rich R.N.) BUPivacaine [...] 2036 (Given - Provider: Melanie Mccormick R.N.) 3943 (Given - Provider: Justyn Carpio RMacie.) oxyCODONE IR tablet 10 mg (Roxicodone)(Linked Group [...] received in previous 6 hours, Starting on Mon02/12/25 at [...] intrathecal dose given. documented in this encounter Additional Health Concerns Active Problems Noted Date Diagnosed Date [facility] HYSTERECTOMY EIN OR CAH ON RAMP ([id number] /[id number]) 12/27/2024 documented as of this encounter Care Teams Clay Molder Relationship Specialty Start Date End Date Elsewhere, Pcp PCP - General Internal Medicine 09/11/23 documented as of this encounter
--- OUTSIDE RECORDS SUMMARY | 2025-02-13 21:52 | XMS_ITS | Encounter Summary ---
Author Organization [facility] Address [address] [place] [address] Care Team Providers Care Foreign Agent Name Role Phone Elsewhere, Pcp Primary Care Provider Unavailabl e Encounter Details Date Type Department Care Team (Late st Contact Info) Description 02/12/2025 8:05 AM CDT Anesthesia Event [facility] OR [address] [place] [address] Cassandra Davenport M.D. [address] [place] [phone] Suzanna Hernández APRN, BLU, DNAP [address] [place] [phone] Anesthesia Record Procedure Summary Procedure Name Responsible [...] Anes CS Handoff I, Suzanna cage APRN, LINE TECHNICIAN, DNAP, attest that I have reconciled the controlled substances and that I have reviewed all the significant information with the next anesthesia provider assuming care of this patient. 0902 Proc Start 0922 Anes CS Handoff I, April B enson, EVAPORATOR REPAIRER, LINE TECHNICIAN, MNA, attest that I have reconciled the controlled substances and that I have reviewed all the significant information with the next anesthesia provider assuming care of this patient. 1132 Anes CS Handoff I, Suzanna Mekhi cage, EVAPORATOR REPAIRER, LINE TECHNICIAN, DNAP, attest that I have reconciled the [...] 1209 02/12/25 0818 by Suzanna Hernández APRN, LINE TECHNICIAN, DNAP 02/12/25 1209 by April Gross APRN, LINE TECHNICIAN, MNA OPA/NPA Placement Date: 05/02; Placement Time: [...] drink = 0.6 oz pur e alcohol) [facility] Utilities Answer Date Recorded In the [...] Sex Assigned at Female 10/29/2023 4:34 PM WOOD BOX MAKER Legal Sex Female 8:57 AM WOOD BOX MAKER Gender Identity Female 10/29/2023 4:34 PM WOOD BOX MAKER Sexual Orientation Straight 10/29/2023 4: 34 PM WOOD BOX MAKER documented as of this encounter OR Notes * Anesthesia Postprocedure Evaluation - Cassandra Davenport M.D. - 02/12/2025 1:30 PM CDT Patient: Martha Elizabeth Postlethwaite Procedure Summary Date: 02/12/25 Room / Location: [address] [facility] [place], [place] Anesthesia Start: 08 Anesthesia Stop: 122 [...] * Anesthesia Procedure Notes - Suzanna Hernández, EVAPORATOR REPAIRER, LINE TECHNICIAN, DNAP - 02/12/2025 8:42 AM CDTAssociated Order(s): [...] ETT location: oral VL device: glide scope Delong scope blade size: 3 Tube size: 7 [...] diagnosis: Malignant Neoplasm Uterus (HCC) [C55]. Location: [address] [facility] [place], [place] Providers: Abigail Rasmussen M.D. Pertinent components [...] with patient /legal guardian or through an supply cataloguer. The use of blood products not discussed Approval to Proceed: approved for anesthesia documented in this encounter Plan of Treatment Not on file documented as of this encounter Goals Goal Patient Goal Type Associated Problems Recent Progress Patient-Stated? Author [facility] HYSTERECTOMY EIN OR CAH ON RAMP ([id number]) Care Plan [facility] HYSTERECTOMY EIN OR CAH ON RAMP ([id number]) No Hanane York, RChavaNChava Follow your after-visit instructions Care Plan Follow your after-visit instructions No Chely Rogers M.D., M.S. documented as of this encounter Procedures Procedure Name Priority Date/Time Associated Diagnosis Comments LDA ANE ENDOTRACHEAL AIRWAY Routine 02/12/2025 8:18 AM CDT documented in this encounter Results * LDA ANE ENDOTRACHEAL AIRWAY (02/12/2025 8:18 AM CDT) Narrative Suzanna Hernández APRN, CRNA, DNAP - 02/12/2025 8:18 AM CDT Suzanna Hernández APRN, CRNA, DNAP 02/12/2025 8:42 AM Airway Date/Time: 02/12/2025 8:18 AM Performed by: Suzanna Hernández APRN, CRNA DNAVandana Authorized by: Cassandra Davenport M.D. Patient location during procedure: OR / Procedure Area PROCEDURE DETAILS: Mask difficulty assessment: easy mask Final airway type: video laryngoscope Laryngeal Manipulation: no Final best view of glottic structures - Cormack/Lehane Score: grade 2A ETT location: oral VL device: glide scope Delong scope blade size: 3 Tube size: 7 [...] CDT 200 mg documented in this encounter Additional Health Concerns Active Problems Noted Date Diagnosed Date [facility] HYSTERECTOMY EIN OR CAH ON RAMP ([id number]) 12/27/2024 Follow your after-visit instructions 02/12/2025 documented as of this encounter Care Teams Foreign Agent Relationship Specialty Start Date End Date Elsewhere, Pcp PCP - General Internal Medicine 09/11/23 documented as of this encounter
--- OUTSIDE RECORDS SUMMARY | 2025-02-13 21:52 | XMS_ITS | Data Portability ---
Author Organization [place] [facility] [place] [facility], [facility] Address [address] [place] [address] Care Team Providers Care Motorcycle Designer Name Role Phone [facility] Referring Provider Assessment Encounter Date Assessment Date [...] Patient InstructionsNo instructions recorded. Reason for Referral None Reported. Results Created Date Observation Date Name Description Value Unit Range Abnormal Flag Note LastModifiedBy Organization Detail LastModifiedTime 08/23/20 23 08/23/2023 fluor oscop y (PROC ) No observ ation record ed. [email or web address] [facility] [address], [place], [address], 09/10/2023 01:59:42 Result Notes None recorded. Problems Name Problem SNOMED Code Status Onset Date Resolution Date Notes Provider Name and Address Organization Details Recorded Time Kidney stone 52064920 Active 023 Harsh corbin MD, PHD [address], [place], [address] , [facility] 08/18/2023 10:39:59 Problem Notes None recorded. Procedures Surgical History Date Name Laterality Status Provider Name and Address Organization Details Recorded Time 8 ureteroscopy completed Radha Jason [facility] 08/18/2023 09:39:35 Imaging Results Imaging Date Name Status LastModified by Organiz ation Details LastModified Time 08/23/2023 fluoroscopy (PROC) completed [email or web address] [address], [place], [address], 09/10/2023 01:59:42 Procedure Notes None recorded. Medical Equipment None [...] Updated DateTime 08/18/2023 165.1 cm 38.6 kg/m2 748754.43 g Radha Jason [facility] 08/18/2023 09:37:16 Social History Question Answer Notes LastModified by Organizat ion Details LastModified Time Tobacco Smoking Status Never Smoker Radha Jason shanice [facility] 08/18/2023 09:38:48 What Is Your Level Of Alcohol Consumption? Moderate [email or web address] Information not available 08/18/2023 What Was The Date Of Your Most Recent Tobacco Screening? 08/18/2023 [email or web address] Information not available 08/18/2023 Sex: Unknown Functional Status None recorded. Mental Status None recorded. Family History Nothing Reported. Medical History Condition Response High Blood Pressure Y Kidney Stones Y Depression N GERD/Acid Reflux Y High Cholesterol Y Diabetes N Gynecological HistoryNo gynecological history recorded. Obstetrics History GPAL:G 0 P 0 0 0 0 Past Encounters Encounter ID Performer Location Encounter Start Date Encounter Closed Date Diagnosis/Indication Diagnosis SNOMED-CT Code Diagnosis ICD10 Code Diagnosis Note [id number] Harsh corbin MD, PHD [facility] [address] [place] [phone] 08/18/2023 09:21:11 08/28/2023 13:58:22 Kidney stone 96651221 N20.0 Health Concerns Section Related Observation LastModified by Organization Detai ls LastModified Time None Recorded Concern Status LastModified by Organization Details LastModified Time None Recorded Advance Directives Directive None Recorded Payers Insurance Date Sequence Insurance Name Policy Number Policy Melvin Covered Member ID Melvin Member ID Guarantor Name 10/03/2023 1 [place]: [employer] Martha L Postlethwaite [id number] Martha Postlethwaite 10/03/2023 2 [place] [id number] Martha L Postlethwaite [id number] Martha Postlethwaite Notes Date Note Type Note Provider Name and Address Organization Details Recorded Time 08/18/2023 text/html 73F with kidney stones. Recent left sided back pain x 2 weeks. H/o stones in 2007. No fever or hematuria. Pain worse when laying down. Some improvement with oxycodone. 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
--- OUTSIDE RECORDS SUMMARY | 2025-02-13 21:52 | XMS_ITS | Encounter Summary ---
Author Organization [facility] Address [address] [place] [address] Care Team Providers Care Bus Trolley And Taxi Instructor Name Role Phone Elsewhere, Pcp Primary Care Provider Unavailabl e Reason for Visit * Reason Comments Pre-op Exam Pre op Hysterectomy 5-7 with [facility] Appointment Request (Routine) - Closed Specialty Diagnoses / Procedures Referred By Shawn gomez Referred To Contact Family Medicine Referral ID Status Reason Start Date Expiration Date Visits Re quested Visits Authorized [id number] Closed 01/14/2025 04/16/2026 1 1 Encounter Details Date Type Department Care Team (Late st Contact Info) Description 01/21/2025 9:30 AM CDT Office Visit Department of Family Medicine, [facility], in [place], [place] [address] [place] [phone] FrankieDonte Moore APRN, C.N.P., D.N.P. [address] [place] [phone] Infection Wound Postoperative Initial (Primary Dx); Preoperative Exam Social History Tobacco Use Types Packs/Day Years Used Date Smoking Tobacco: Never Passive Smoke Exposure: Never Smokeless Tobacco: Never Tobacco Cessation:Counseling Given: Not Answered Alcohol Use Standard Drinks/Week Comments Yes 2 (1 standard drink = 0.6 oz pur e alcohol) [facility] Utilities Answer Date Recorded In the past 12 months has [facility] Monitoring Division, oil, or water [employer] threatened to shut off services in your [...] money to buy more. Never true 12/27/19 25 Within the past 12 months, t [...] your living situation today? I have a [facility] place to live 12/26/2024 Comments No Sex and Gender Information Value Date Recorded Sex Assigned at Female 10/29/2023 4:34 PM SECURITY SOFTWARE ENGINEER Legal Sex Female 8:57 AM SECURITY SOFTWARE ENGINEER Gender Identity Female 10/29/2023 4:34 PM SECURITY SOFTWARE ENGINEER Sexual Orientation Straight 10/29/2023 4: 34 PM SECURITY SOFTWARE ENGINEER documented as of this encounter Last Filed Vital Signs Vital Sign Reading Time Taken Comments Blood Pressure 125/80 01/21/2025 9:23 AM CDT Pulse 87 01/21/2025 9:23 AM CDT Temperature 36.4 C (97.5 F) 01/21/2025 9:23 AM CDT Respiratory Rate - - Oxygen Saturation 93% 01/21/2025 9:23 AM CDT room air Inhaled Oxygen Concentration - - Weight 110 kg (241 lb 11.8 oz) 01/21/2025 9:23 A M CDT Height 162 cm (5' 3.78) 01/21/2025 9:23 AM CDT Body Mass Index 41.78 01/21/2025 9:23 AM CDT documented in this encounter H&P Notes * Donte Patel APRN, C.N.P., D.N.P. - 01/21/2025 9:30 AM CDT SUBJECTIVE PREOPERATIVE HISTORY AND PHYSICAL CHIEF COMPLAINT/REASON FOR VISIT Martha Brooks is a 74 y.o. female who presents for evaluation of Pre- op Exam (Pre op Hysterectomy 5- with [place]). HISTORY OF PRESENT ILLNESS Martha Brooks is a very pleasant 74-year-old female PMH hypertension, GERD, MS, prediabetes, history of falling and currently ambulates with a cane, pernicious anemia, with endometrial cancer who presents for preoperative evaluation for a hysterectomy. She underwent surgery in December to remove an ovarian cyst, during which her ovaries and fallopian tubes were also removed. A polyp in her uterus tested positive for cancer, leading to a diagnosis of endometrial cancer. She is scheduled for a hysterectomy on February 12, following her 75th birthday celebr ations, including a trip to [facility]. She has experienced some patchy bleeding since her last surgery, which she attributes to her endometrial cancer diagnosis. In addition she reports draining fluid at her belly button and suspects this is from the previous surgery, the area is sore and has not improved. She reports wiping the area causes soreness. She has experienced nausea and dizziness with anesthesia in the past but had no issues during her recent surgery at [facility]. She also had difficulty urinating post-surgery, which required teaching of self-catheterization before discharge but was able to void when she arrived home. She hopes to avoid this issue in the upcoming surgery by receiving fluids during the procedure. She has a family history of anesthesia complications, as her grandmother from anesthesia during a minor surgery-unsure if this was a malignant hypothermia. She has a history of hypertension, managed with Maxzide and lisinopril. No heart conditions, shortness of breath, chest pain, sleep apnea, or snoring. She consumes alcohol occasionally, about one to two glasses of wine or beer per week, and does not use tobacco or NSAIDs. She has a history of prediabetes but no liver disease, jaundice, stomach ulcers, hernia, neck pain, back pain, paralysis, or sickle cell trait. Current Medications[1] Allergies[2] REVIEW OF SYSTEMS General: Denies recent fever, [...] no -Do you have a heart condition? no -Do you have hypertension (high blood pressure)? History of hypertension, currently take Maxzide, lisinopril, -Do you experience shortness of breath? no -Do you have asthma, bronchitis, obstructive sleep apnea? no -Do you snore loudly or have any other breathing problems? no -Do you (or did you) smoke? no -Do you consume alcohol? Occasional glass avoid -Do you take or have you taken recreational drugs? no -Have you taken cortisone (steroids) in the last 6 months? no -Do you take any nonsteroidal or anti-inflammatory drugs (NSAIDS) such as aspirin, ibuprofen, naproxen? no -Anticoagulation: no - Bleeding or clotting disorders: no. -Do you take herbal supplements, or complementary or alternative medicines? no -Do you have diabetes? History of prediabetes -Have you had hepatitis, liver disease, or jaundice? no -Do you have a thyroid condition? no -Do you have or have you ever had kidney disease? no -Do you have ulcers or other stomach disorders? no -Do you have a hiatal hernia? no -Do you have back or neck pain? no -Do you have numbness, weakness, or paralysis of your extremities? no -Do you have any muscle or nerve disease? no -Do you or any of your family have sickle cell trait? no -Have you or any blood relatives had difficulties with anesthesia? no -Do you have bleeding problems? no -Do you have loose, chipped or false teeth, bridge work, or oral piercings (such as studs or rings)in your tongue or lip? no -Do you wear contact lenses? no -Have you ever received a blood transfusion? no -(Women) Are you ? no - History Bacterial Endocarditis: no -Obstructive sleep apnea: No history of sleep apnea -Mallampati Class: II. -Infection/Immunosuppression: no. -GERD: History GERD without esophagitis. -History of MRSA skin infections: no ASA PS CLASSIFICATION: II MEDICAL HISTORY Problem List[3] Surgical History[4] Social History[5] Family History[6] OBJECTIVE Vitals: 01/21/25 0923 BP: 125/80 BP Location: Right arm Patient Position: Sitting Cuff Size: Large Pulse: 87 Temp: 36.4 ??C TempSrc: Temporal SpO2: 93% Weight: 110 kg Height: 162 cm Body mass index is 41.78 kg/m??. PHYSICAL EXAMINATION Constitutional Appearance: Normal appearance. HENT Head: Normocephalic and atraumatic. Right Ear: Tympanic membrane normal. Left Ear: Tympanic membrane normal. Mouth/Throat: Mouth: Mucous membranes are moist. Pharynx: Oropharynx is clear. Eyes Pupils: Pupils are equal, round, and reactive to light. Cardiovascular Rate and Rhythm: Normal rate and regular rhythm. Pulses: Normal pulses. Heart sounds: Normal heart sounds. Pulmonary Effort: Pulmonary effort is normal. Breath sounds: Normal breath sounds. Abdominal General: Bowel sounds are normal. Musculoskeletal General: Normal range of motion. Cervical back: Normal range of motion and neck supple. Skin General: Skin is warm and dry. Capillary Refill: Capillary refill takes less than 2 seconds. Neurological General: No focal deficit present. Mental Status: She is alert and oriented to person, place, and time. Psychiatric Mood and Affect: Mood normal. Behavior: Behavior normal. ASSESSMENT / PLAN #1 Preoperative exam - This patient is medically optimized for the above-mentioned procedure. - She is capable of achieving greater than 4 METS without cardiopulmonary symptoms. - Advised no aspirin-containing products 7 days prior to procedure. - Follow-up as needed. #2 Infection Wound Postoperative Initial Patient reports draining of fluid at umbilical region since last surgery. Upon physical examinationnoted slight purulent discharge, no odor noted, patient denies pain at the site currently, will go ahead and swab for culture. - Bacterial Culture, Aerobic + Susceptibility - cephalexin (Keflex) 500 mg capsule; Take 1 capsule (500 mg total) by mouth 2 (two) times a day for 7 days., Starting Mon01/21/2025, Until Mon01/28/2025, Normal All questions answered and patient voiced understanding and agreed with the plan. Donte Patel APRN, C.N.P., D.N.P. Addendum: Wound culture came back positive schaalia turicensis susceptible to amoxicillin. We will go ahead and discontinue the Keflex and send amoxicillin to pharmacy and probiotic. Contact patient via telephone to inform of change. [1] Current Outpatient Medications Medication Sig Dispense Refill acetaminophen (TylenoL) 500 mg tablet Take 2 tablets (1,000 mg total) by mouth every 6 (six) hours as needed for pain. Alternate with ibuprofen every 3 hours. Do not exceed 4000 mg or 4 g in 24 hours. cholecalciferol (VITAMIN D3) 25 mcg (1,000 Unit) capsule Take 1 capsule by mouth daily. cyanocobalamin (VITAMIN B12) 500 mcg SL tablet Dissolve 1,000 mcg in the mouth daily. famotidine (PEPCID) 10 mg tablet Take 10 mg by mouth as needed for heartburn. FLUoxetine (PROzac) 40 mg capsule Take 80 mg by mouth daily. gabapentin (NEURONTIN) 100 mg capsule Take 200 mg by mouth at bedtime. ibuprofen 200 mg tablet Take 3 tablets (600 mg total) by mouth every 6 (six) hours as needed for pain. Alternate with acetaminophen every 3 hours. lisinopriL (PRINIVIL,ZESTRIL) 40 mg tablet Take 40 mg by mouth daily. miSOPROStoL (Cytotec) 200 mcg tablet Take 200 mcg by mouth as directed. One the night before surgery and one the morning of surgery oxyCODONE (Roxicodone) 5 mg immediate release tablet Take 1 tablet (5 mg total) by mouth every 6 (six) hours as needed for pain Indication: Acute Pain. Not relieved by over the counter pain medications. 10 tablet 0 rosuvastatin (CRESTOR) 10 mg tablet Take 10 mg by mouth daily. sennosides-docusate sodium (Senokot-S) 8.6-50 mg per tablet Take 1 tablet by mouth 2 (two) times a day as needed for constipation. While on narcotics. triamterene-hydroCHLOROthiazide (MAXZIDE-25) 37.5-25 mg per tablet Take 1 tablet by mouth every morning. cephalexin (Keflex) 500 mg capsule Take 1 capsule (500 mg total) by mouth 2 (two) times a day for 7days. 14 capsule 0 No current facility-administered medications for this visit. [2] Allergies Allergen Reactions Shellfish Derived GI intolerance [3] Patient Active Problem List Diagnosis History Of Falling Hypertension Essential Primary Anemia Pernicious Deficiency Vitamin B12 Gastroesophageal Reflux Disease Without Esophagitis Nodule Thyroid Polyp Colon Personal History, Unspecified Type Radiculopathy Lumbosacral PreDiabetes Unspecified Ovarian Cyst Left Side Multiple Sclerosis (HCC) Malignant Neoplasm Of Uterus (HCC) [4] Past Surgical History: Procedure Laterality Date SECTION March 1982 DILATATION AND CURETTAGE 1997 EXTRACTION CATARACT WITH INSERTION INTRAOCULAR LENS Bilateral GALLBLADDER SURGERY 1996 KIDNEY STONE SURGERY KNEE ARTHROPLASTY Bilateral 2010 & 2021 Bilateral Knees LAPAROSCOPIC SALPINGO-OOPHORECTOMY Bilateral 12/13/2024 Procedure: LAPAROSCOPIC SALPINGO-OOPHORECTOMY, BILATERAL SALPINGO-OOPHORECTOMY,; Surgeon: Yara Sawant M.B.B.S.; Location: [facility] OR OPERATIVE HYSTEROSCOPY N/A 12/13/2024 Procedure: OPERATIVE HYSTEROSCOPY, poylpectomy.; Surgeon: Yara Sawant M.B.B.S.; Location:[facility] OR OPERATIVE LAPAROSCOPY N/A 12/13/2024 Procedure: OPERATIVE LAPAROSCOPY, umbilical hernia reapair.; Surgeon: Yara Sawant M.B.B.S.; Location: [facility] OR SALPINGECTOMY 2024 TONSILLECTOMY 1954 WRIST SURGERY Right 11/2023 [5] Social History Tobacco Use Smoking status: Never Passive exposure: Never Smokeless tobacco: Never Vaping Use Vaping status: never used Substance Use Topics Alcohol use: Yes Alcohol/week: 2.0 standard drinks of alcohol Types: 1 Glasses of wine, 1 Standard drinks or equivalent per week Drug use: Never [6] Family History Problem Relation Name Age of Onset Breast cancer Mother mother age 50 Stroke Mother mother age 90 Transient ischemic attack Mother mother age 90 Dementia Mother mother 90age Coronary artery disease Father father age 55 Diabetes Father father age 30 Drug abuse Brother brother age 15 documented in this encounter Miscellaneous Notes * Addendum Note - Donte Patel APRN, C.N.P., D.N.P. - 01/21/2025 9:30 AM CDTAddended by: DONTE PATEL on: 01/25/2025 12:04 PM Modules accepted: Orders documented in this encounter Plan of Treatment Not on file documented as of this encounter Goals Goal Patient Goal Type Associated Problems Recent Progress Patient-Stated? Author [facility] HYSTERECTOMY EIN OR CAH ON RAMP ([id number]) Care Plan [facility] HYSTERECTOMY EIN OR CAH ON RAMP ([id number]) No Hanane York, Andressa. documented as of this encounter Procedures Procedure Name Priority Date/Time Associated Diagnosis Comments BACTERIAL CULTURE, AEROBIC + SUSC Routine 01/21/2025 10:06 AM CDT Infection Wound Postoperative Initial documented in this encounter Results * (ABNORMAL) Bacterial Culture, Aerobic + Susceptibility (01/21/2025 10:06 AM CDT) Bacterial Culture, Aerobic + Susc With skin microbiota(A) 01/25/2025 6:03 AM CDT MKTO Bacterial Culture, Aerobic + Susc SCHAALIA (ACTINOMYCES) TURICENSIS 3+ (A) 01/25/2025 6:03 AM CDT MKTO Comment: Notify Microbiology if organism is to be sent to [facility] for susceptibility testing. Skin (Umbilicus) 01/21/2025 10:06 AM CDT 01/21/2025 7:04 PM CDT Comment:Specimen Source Site : Skin us Donte Patel APR N, C.N.P., D.N.P. LAB MICROBIOLOGY - GENERAL ORDERABLES Final Result [facility] [address] [place] [address], [facility] [place] MKTO [facility] [place] [address] [place] [address] documented in this encounter Visit Diagnoses Diagnosis Infection Wound Postoperative Initial- Primary Preoperative Exam documented in this encounter Additional Health Concerns Active Problems Noted Date Diagnosed Date [facility] HYSTERECTOMY EIN OR CAH ON RAMP ([id number]) 12/27/2024 documented as of this encounter Care Teams Bus Trolley And Taxi Instructor Relationship Specialty Start Date End Date Elsewhere, Pcp PCP - General Internal Medicine 09/11/23 documented as of this encounter
--- OUTSIDE RECORDS SUMMARY | 2025-02-13 21:52 | XMS_ITS | Encounter Summary ---
Author Organization [facility] Address [address] [place] [address] Care Team Providers Care Burner Machine Operator Name Role Phone Elsewhere, Pcp Primary Care Provider Unavailabl e Encounter Details Date Type Department Care Team (Late st Contact Info) Description 02/13/2025 Results Follow-Up Department of Obstetrics and Gynecology, Division of Gynecologic Oncology in [place], [place] [address] [place] [phone] Abigail Rasmussen M.D. [address] [place] [phone] Cytology Non-PRINT LINE TAILER Social History Tobacco Use Types Packs/Day Years Used Date Smoking Tobacco: Never Passive Smoke Exposure: Never Smokeless Tobacco: Never Alcohol Use Standard Drinks/Week Comments Yes 2 (1 standard drink = 0.6 oz pur e alcohol) [facility] Utilities Answer Date Recorded In the past 12 months has e [employer], gas, oil, or water [email or web address] threatened to shut off services in your [...] your living situation today? I have a [facility] place to live 02/13/2025 Comments No Sex and Gender Information Value Date Recorded Sex Assigned at Female 10/29/2023 4:34 PM FUEL TANK SEALER AND TESTER Legal Sex Female 8:57 AM FUEL TANK SEALER AND TESTER Gender Identity Female 10/29/2023 4:34 PM FUEL TANK SEALER AND TESTER Sexual Orientation Straight 10/29/2023 4: 34 PM FUEL TANK SEALER AND TESTER documented as of this encounter Plan of Treatment Not on file documented as of this encounter Goals Goal Patient Goal Type Associated Problems Recent Progress Patient-Stated? Author [facility] HYSTERECTOMY EIN OR CAH ON RAMP ([id number]) Care Plan [facility] HYSTERECTOMY EIN OR CAH ON RAMP ([id number]) No Hanane York R.N. Follow your after-visit instructions Care Plan Follow your after-visit instructions No Chely Rogers M.D., M.S. documented as of this encounter Visit Diagnoses Not on filedocumented in this encounter Additional Health Concerns Active Problems Noted Date Diagnosed Date [facility] HYSTERECTOMY EIN OR CAH ON RAMP ([id number]) 12/27/2024 Follow your after-visit instructions 02/12/2025 documented as of this encounter Care Teams Burner Machine Operator Relationship Specialty Start Date End Date Elsewhere, Pcp PCP - General Internal Medicine 09/11/23 documented as of this encounter
--- OUTSIDE RECORDS SUMMARY | 2025-02-13 21:52 | XMS_ITS | Clinical Summary ---
Author Organization [facility] Address [address] [place] [id number] Care Team Providers Care Chief Compliance Officer Name Role Phone Wandy Sterling MD Primary Care Provide r Allergies Active Allergy Reactions Criticality Noted Date Comments Shellfish Derived Vomiting,GI Upset Low 08/01/2023 Extreme vomiting and diahrrea Extreme vomiting and diahrrea Medications cholecalciferol (VITAMIN D) 1,000 unit capsule Take 1 capsule by mouth once daily. 0 2 Active acetaminophen (TYLENOL EXTRA STRGTH) 500 mg tablet Take 2 Tablets by mouth every 6 hours if needed for Pain. 3 Active cyanocobalamin, vitamin B-12, [address] 1,000 mcg under the tongue once daily. Active lisinopriL (PRINIVIL; ZESTRIL) 40 mg tabletIndications:E ssential hypertension Take 1 Tablet (40 mg) by mouth once daily. 90 Tablet 3 5 Active rosuvastatin (CRESTOR) 10 mg tabletIndications:H yperlipidemia, unspecified hyperlipidemia type Take 1 Tablet (10 mg) by mouth at bedtime. 90 Tablet 3 5 Active triamterene-hydroch lorothiazide, 37.5-25 mg, (MAXZIDE-25) 37.5-25 mg tabletIndications:E ssential hypertension Take 1 Tablet by mouth once daily in the morning. 90 Tablet 3 5 Active gabapentin (NEURONTIN) 100 mg capsuleIndications: Lumbar radiculopathy Take 2 Capsules (200 mg) by mouth at bedtime. 180 Capsule 3 5 Active FLUoxetine (PROZAC) 40 mg capsuleIndications: Major depressive disorder, recurrent episode, mild TAKE 2 CAPSULES (80MG) BY MOUTH IN THE MORNING 180 Capsule 3 5 Active Active Problems Problem Noted Date Diagnosed Date Paresis of single lower extremity 10/31/2024 Closed fracture of right wrist 11/09/2023 Left leg weakness 11/09/2023 Ulcer of esophagus without bleeding 01/11/2018 Overview (01/11/2018): EGD 01/2018 esophageal ulcer, repeat EGD in 3-6 months Left peroneal nerve palsy 12/08/2017 Small vessel disease, cerebrovascular 01/25/2017 Arthritis of knee 08/16/2011 Other and unspecified ovarian cyst 12/09/2008 Benign neoplasm of colon 04/04/2008 Overview (10/26/2018): Colonoscopy 08/2013 normal repeat in 5 years Colonoscopy 10/2018 hyperplastic polyp, repeat in 5 years Major depressive disorder, recurrent episode, mi ld 04/04/2008 Unspecified essential hypertension 04/03/2007 Resolved Problems Problem Noted Date Diagnosed Date Resolved Date Pseudopolyposis of colon without complication 10/13/19 21 10/14/2021 S/P knee replacement 03/28/2011 011 detention (current) use of anticoagulants 03/22/2011 08/16/2011 Overview (03/22/2011): INR Goal Range: 1.5 - 2.5 Encounters Date Type Department Care Team Description 02/07/2025 9:45 AM CDT Telemedicine [facility] [address] [facility] [place] [phone] Milena Ramirez, PhD, LP Individual Therapy 01/24/2025 9:45 AM CDT Telemedicine [facility] [address] [facility] [address] Milena Ramirez, PhD, LP Individual Therapy 01/17/2025 9:45 AM CDT Telemedicine [facility] [address] [facility] [place] [phone] Milena Ramirez, PhD, LP Individual Therapy 01/10/2025 10:30 AM CDT Telemedicine [facility] [address] [facility] [place] [phone] Milena Ramirez, PhD, LP Individual Therapy 12/27/2024 9:45 AM CDT Telemedicine [facility] [address] [place] [phone] Milena Ramirez, PhD, LP Individual Therapy 12/25/2024 Telephone [facility] [address] [place] [address] Wandy Sterling MD Results (Pathology [facility]); Follow Up 12/20/2024 9:45 AM CDT Telemedicine [facility] [address] [place] [phone] Milena Ramirez, PhD, LP Individual Therapy 11/29/2024 9:00 AM MACHINE RIVETER Telemedicine [facility] [address] [place] [phone] Milena Ramirez, PhD, LP Individual Therapy 11/29/2024 Travel 11/22/2024 9:45 AM MACHINE RIVETER Telemedicine [facility] [address] [place] [phone] Milena Ramirez, PhD, LP Individual Therapy 11/22/2024 Travel from Last 3 Months Immunizations Immunization Administration Dates Next Due AMB INFLUENZA IIV3 (AGE 65+ YRS) PF (Flu Clinic Only) 07/18/2018 AMB Influenza, IIV3 (Age >=3 years)(Flu Clinic Only) 08/05/2008 AMB Influenza, IIV4 PF (=>6 mos Flulaval,Fluzone Fluarix)(Flu Clinic Only) 07/17/2014 Amb Influenza, Inact (High-d ose) (Flu Clinic Only) 07/08/2016 COVID-19 VACCINE SPIKEVAX (M ODERNA 50MCG/0.5ML) 12YO+ PFS 12/11/2023 COVID-19 vaccine (Moderna 100mcg/0.5mL) PF, MDV 06/28/2023 COVID-19 vaccine (Pfizer-Bio NTech 30mcg/0.3mL) PF, MDV 07/27/2021,01/01/2021,12/11/2020 INFLUENZA, IIV3 PF (AGE >= 6 MO) 08/16/2011 Influenza Virus, Unspecified 06/28/2023, 08/18/2021,06/23/2020,2018,07/18/2018,07/18/2017,07/08/2016,1 12/01/2014,08/29/2013,06/22/2012, 011,08/03/2010,07/23/2009,08/05/2008,,09/06/2006,08/16/2005,09/02/20 03 Influenza, High-dose Inactivated 08/01/2024,09/09 Influenza, High-dose Quadriv alent Inactivated 07/04/2022 Influenza, [...] Sanya Paternal Grandfather Paternal Grandmother Sister 1 Beryl Alive Sister 2 Social History Tobacco Use Types Packs/Day Years Used Date Smoking Tobacco: Never Smokeless Tobacco: Never Tobacco Cessation:Counseling Given: Yes Alcohol Use Standard Drinks/Week Comments Yes 2 (1 standard drink = 0.6 oz pur e alcohol) one drink per week PHQ-2 Answer Date Recorded PHQ-2 TOTAL SCORE 2 11/29/2024 Social Connections Answer Date Recorded Do you often feel lonely or isolated from those around you? 0 09/12/2024 Financial Resource Strain Answer Date R ecorded Difficulty of Paying Living Expenses 3 09/12/2024 Difficulty of Paying Living Expenses Not on file 09/12/2024 Food Insecurity Answer Date Recorded Do you worry your food will run out before you are able to buy more? 1 09/12/2024 Transportation Needs Answer Date Record ed Does lack of transportation keep you from medica l appointments? 1 09/12/2024 Does lack of transportation keep you from work, meetings or getting things that you need? 1 09/12/2024 Housing Stability Answer Date Recorded What is your housing situation today? 1 09/12/2024 Utilities Answer Date Recorded Do you have trouble paying f or utilities (for example, heat, electricity, water, phone)? 1 09/12/2024 Comments No Sex and Gender Information Value Date Recorded Sex Assigned at Not on file Legal Sex Female 5:24 AM MACHINE RIVETER Gender Identity Not on file Sexual Orientation Not on file Occupation Industry Job Start Date Job End Date Retired Not on file Not on file Not on file Obstetrics History Para Term AB IAB SAB Ectopic Multiple Livin g Live Births 2 2 2 2 2 Date Outcome GA Total Labor Labor/2nd/3rd Weight Sex Type Anes PTL Mala A1 A5 Name Clin Term C-Sec tion Living Term Vag Living Last Filed Vital Signs Vital Sign Reading Time Taken Comments Blood Pressure 106/71 10/31/2024 10:12 AM MACHINE RIVETER Pulse 72 10/31/2024 10:12 AM MACHINE RIVETER Temperature 36.4 C (97.5 F) 09/13/2023 5:15 PM MACHINE RIVETER Respiratory Rate 18 09/13/2023 6:15 PM MACHINE RIVETER Oxygen Saturation 95% 10/31/2024 10:12 AM MACHINE RIVETER Inhaled Oxygen Concentration - - Weight 108 kg (238 lb) 10/31/2024 10:12 AM MACHINE RIVETER Height 165.1 cm (5' 5) 10/31/2024 10:12 AM MACHINE RIVETER Body Mass Index 39.61 10/31/2024 10:12 AM MACHINE RIVETER Plan of Treatment Upcoming Encounters Date Type Department Care Team (Late st Contact Info) Description 02/21/2025 9:45 AM CDT Telemedicine [facility] [address] [place] [phone] Milena Ramirez, PhD, LP [address] [place] [address] Health Maintenance Due Date Last Done Comments RSV vaccine for adults or (1 - 1-dose 75+ series) 2025 COVID-19 vaccine series ( season) 2025 01/20/2025, 08/01/2024, 12/11/2023, Additional history exists BMI (ht and wt on same day) for age 18+ 10/31/2025 10/31/2024, 09/12/2024, 08/21/2023, Additional history exists Medicare Wellness for age 65+ 11/01/2025, 10/20/2022, 10/14/2021, Additional history exists Depression screening for age 12+ 11/29/2025 11/29/2024, 11/22/2024, 11/14/2024, Additional history exists Tetanus booster 09/26/2027 09/26/2017, 12/06/2006 Colonoscopy through age 75 12/07/202812/07 ([facility] 10/25/2018, 10/25/2018, Additional history exists Lipids for age 45-75 10/10/2029 10/10/2024, 03/25/2024, 10/20/2022, Additional history exists Pneumococcal series for age 50+ Completed 7, 09/20/2016 Tdap Completed 09/26/2017, 12/06/2006 DEXA/DXA scan for age 65+ Completed 10/16/2017, Hepatitis C screening for ag e 18-79 Completed 10/10/2019 Zoster (shingles) series for age 50+ Completed 10/15/2022, 08/05/2022 Influenza Vaccine Completed 08/01/2024, , 06/28/2023, Additional history exists Medical Devices Implanted Type Area Racing Secretary And Handicapper Device Identifier Shelf Expiration Date Model / Serial / Lot Stent Uret [id number] Contour - [id number] Implanted:Qty: 1 on 08/23/2023 by Harsh Manzano MD at [facility] Left: [facility] 04/13/2026 [id number] / / [id number] Stent Uret [id number] Contour - [id number] Implanted:Qty: 1 on 09/13/2023 by Gilson Smith MD at [facility] Left: [employer] [facility] 03/28/2026 [id number] / / [id number] Procedures Procedure Name Priority Date/Time Associated Diagnosis Comments LIPID PANEL W REFLEX MEASURED LDL Routine 10/10/2024 2:22 PM MACHINE RIVETER Hyperlipidemia, unspecified hyperlipidemia type ANTI HCV Routine 10/10/2019 1:15 PM MACHINE RIVETER Encounter for hepatitis C screening test for low risk patient COLONOSCOPY 10/25/2018 8:24 AM MACHINE RIVETER XR DXA BONE DENSITY 2 SITES AXIAL Routine 10/16/2017 2:26 PM MACHINE RIVETER Asymptomatic postmenopausal state from Last 3 Months or Most Recently Relevant to Health Maintenance Results * (ABNORMAL) LIPID PANEL W REFLEX MEASURED LDL (10/10/2024 2:22 PM MACHINE RIVETER) CHOLESTEROL, TOTAL 124 <200 mg/dL [facility] HDL CHOLESTEROL 43(L) > OR = 50 mg/dL [facility] TRIGLYCERIDES 140 <150 mg/dL [facility] LDL-CHOLESTEROL 59 mg/dL (calc) [facility] Comment: Reference range: <100 Desirable range <100 mg/dL for primary prevention; <70 mg/dL for patients with CHD or diabetic patients with > or = 2 CHD risk factors. LDL-C is now calculated using the Dimitry calculation, which is a validated novel method providing better accuracy than the Friedewald equation in the estimation of LDL-C. Myron SS et al. NAZIA. 2013;310(98): 2790-5751 (http://education.Dweho/faq/GRL928) CHOL/HDLC RATIO 2.9 <5.0 (calc) [facility] NON HDL CHOLESTEROL 81 <130 mg/dL (calc) [facility] Comment: For patients with diabetes plus 1 major ASCVD risk factor, treating to a non-HDL-C goal of <100 mg/dL (LDL-C of <70 mg/dL) is considered a therapeutic option. Blood BLOOD SPECIMEN / Unknown 10/10/2024 2:22 PM MACHINE RIVETER 10/10/2024 2:23 PM MACHINE RIVETER Wandy Sterling MD CHEMISTRY Final Result Performing Organization Address City/State/[facility] Co de Phone Number [employer] [facility] [address] [place] [address], [facility] [address] [place] [address] * ANTI HCV (10/10/2019 1:15 PM MACHINE RIVETER) Pathologist [facility] HEPATITIS C ANTIBODY Non-React mcay Non-React macy 10/10/2019 7:34 PM MACHINE RIVETER [facility] Comment:Antibodies to HCV no t detected; does not exclude the possibility of exposure to HCV. Blood BLOOD SPECIMEN / Unknown Butterfly / Unknown 10/10/2019 1:15 PM MACHINE RIVETER 10/10/2019 1:15 PM MACHINE RIVETER us Wandy Sterling MD SEND OUTS Final Result [facility] [address] [place] [address], [place] * COLONOSCOPY (10/25/2018 8:24 AM MACHINE RIVETER) 10/25/2018 8:24 AM MACHINE RIVETER Narrative Transcriptions Myron Graham MD - 10/25/2018 9:08 AM CST [facility]: [facility] Procedure Date: 10/25/2018 Gender: Female Date of : 1950 Admit Type: Outpatient Procedure: Colonoscopy Proceduralist: Myron Graham MD , Miroslava Mendoza (Nurse) Indications/Pre-Op Diagnosis: Surveillance: Personal history ofadenomatous polyps on last colonoscopy 5 years ago, Last colonoscopy: August 2013 Medications: Fentanyl 100 micrograms IV, Midazolam 2 mgIV, The level of sedation administered wasmoderate Procedure Description: The patient had risks, benefits and alternatives explained to andgave informed consent. The patient had a stable cardiopulmonary status and judged an adequate candidate for conscious sedation. The Colon CF-[id number] [id number] was passed through the anus and advancedto the cecum, identified by appendiceal orifice and ileocecal valve. The colonoscopy was performed without difficulty. The patient toleratedthe procedure well. The quality of the bowel preparation was good. The ileocecal valve, appendiceal orifice, and rectum were photographed. Complications: No immediate complications. Estimated Blood Loss & Specimen: Estimated blood loss: none. Specimen collected - Yes and sent to Laboratory Findings: The perianal and digital rectal examinations were normal. A 3 mm polyp was found in the transverse colon. The polyp wassessile. The polyp was removed with a cold biopsy forceps. Resection and retrieval were complete. A 2 mm polyp was found in the descending colon. The polyp wassessile. The polyp was removed with a cold biopsy forceps. Resection and retrieval were complete. The colon (entire examined portion) was mildly redundant. The exam was otherwise without abnormality on direct and retroflexion views. Impressions/Post-Op Diagnosis: - One 3 mm polyp in the transverse colon, removed with a cold biopsy forceps. Resected and retrieved. - One 2 mm polyp in the descending colon, removed with a cold biopsy forceps. Resected and retrieved. - Redundant colon. - The examination was otherwise normal on direct and retroflexionviews. Recommendation: - Patient has a contact number available for emergencies. The signsand symptoms of potential delayed complications were discussed with the patient. Return to normal activities tomorrow. Written discharge instructions were provided to the patient. - Resume previous diet. - Continue present medications. - Await pathology results. - Repeat colonoscopy in 5 years for surveillance. Moderate Sedation: Moderate (conscious) sedation was administered by the endoscopy nurse and supervised by the endoscopist. The following parameters were monitored: oxygen saturation, heart rate, respiratory rate, blood pressure, adequacy of pulmonary ventilation and reponse to care. [facility] flow[facility] and nursing notes for moderate sedation details. Total physician intraservice time was 21 minutes. Myron Graham MD 10/25/2018 9:08:09 AM This report has been signed electronically. Note Initiated On: 10/25/2018 8:24 AM Procedure Code(s): --- Professional --- 88301, Colonoscopy, flexible; with biopsy, single or multiple Diagnosis Code(s): --- Professional --- Z86.010, Personal history of colonicpolyps D12.3, Benign neoplasm of transverse colon (hepatic flexure or splenic flexure) D12.4, Benign neoplasm of descending colon Q43.8, Other specified congenitalmalformations of intestine CPT copyright 2017 [employer]. All rights reserved. The codes documented in this report are preliminary and upon sales relationship manager reviewmay be revised to meet current compliance requirements. Scope In: 8:44:14 AM Scope Withdrawal Time 0 hours 12 minutes 25 seconds Scope Out: 9:03:35 AM us Myron Graham MD PROCEDURE ORD Final Res ult * (ABNORMAL) XR DXA BONE DENSITY 2 SITES AXIAL (10/16/2017 2:26 PM MACHINE RIVETER) Anatomical Region Laterality Modality Spine, HIPS, HIPL, HIPR Other Narrative 10/20/2017 4:29 PM MACHINE RIVETER Please see scanned document for results of this study. 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
--- OUTSIDE RECORDS SUMMARY | 2025-02-13 21:53 | XMS_ITS | Encounter Summary ---
Author Organization [facility] Address [address] [place] [address] Care Team Providers Care Transcription Specialist Name Role Phone Elsewhere, Pcp Primary Care Provider Unavailabl e Encounter Details Date Type Department Care Team (Late st Contact Info) Description 02/13/2025 Clinical Communication Department of Obstetrics and Gynecology, Division of Gynecologic Oncology in [place], [place] [address] [place] [address] Tim Bailey M.D., M.P.H. [address] [place] [phone] Social History Tobacco Use Types Packs/Day Years Used Date Smoking Tobacco: Never Passive Smoke Exposure: Never Smokeless Tobacco: Never Alcohol Use Standard Drinks/Week Comments Yes 2 (1 standard drink = 0.6 oz pur e alcohol) [facility] Utilities Answer Date Recorded In the past 12 months has [employer], gas, oil, or water [employer] threatened to shut off services in your [...] your living situation today? I have a [facility] place to live 02/13/2025 Comments No Sex and Gender Information Value Date Recorded Sex Assigned at Female 10/29/2023 4:34 PM AUTO PARTS CLERK Legal Sex Female 8:57 AM AUTO PARTS CLERK Gender Identity Female 10/29/2023 4:34 PM AUTO PARTS CLERK Sexual Orientation Straight 10/29/2023 4: 34 PM AUTO PARTS CLERK documented as of this encounter Miscellaneous Notes * Telephone Encounter - Tim Bailey M.D., M.P.H. - 02/13/2025 6:19 PM CDT Martha Brooks is a [address] Rasmussen who is postop day 1 from a robotic-assisted total abdominal hysterectomy and left pelvic sentinel lymphadenectomy. She was discharged from the hospital earlier today after meeting milestones. She is contacting the on-call gynecology service for several complaints. She reports that she feels that she has taken a step back since she has gotten home. She has had extreme dizziness where it feels like the room is spinning around her. She feels like she is falling over, but has not had any actual falls. She describes feeling diaphoretic. She did have sinus congestion going into surgery, but does not think she has had any aural fullness that could lead to vertigosecondary to inner ear barometric derangements. She has taken ibuprofen and an herbal cough drop today, but did not use any narcotics out of concern for exacerbation of her dizziness. She also has abdominal pain, extreme nausea, and has had 1 episode of bilious emesis. She did have 1 bowel movement today. She says that she is voiding okay. In summary, this is a patient who is postop day 1 from the above surgery with Dr. Rasmussen. She is contacting the on-call service because of vertiginous symptoms, nausea, abdominal pain, and 1 episode of bilious emesis. I advised her to go to her local emergency room for evaluation, and mentioned that they could reach out to our service for questions or to arrange transfer for direct admission toour service. The patient reports that she can not ambulate at this time due to her vertigo. I advised her to contact EMS services so that they could assist her with getting in her vehicle, or so thatthey could take her by ambulance to her local emergency department. Tim Bailey M.D., M.P.H. PGY1 Obstetrics and Gynecology documented in this encounter Plan of Treatment Not on file documented as of this encounter Goals Goal Patient Goal Type Associated Problems Recent Progress Patient-Stated? Author [facility] HYSTERECTOMY EIN OR CAH ON RAMP ([id number]) Care Plan [facility] HYSTERECTOMY EIN OR CAH ON RAMP ([id number]) No Hanane York R.N. Follow your after-visit instructions Care Plan Follow your after-visit instructions No Chely Rogers M.D., M.S. documented as of this encounter Visit Diagnoses Not on filedocumented in this encounter Additional Health Concerns Active Problems Noted Date Diagnosed Date [facility] HYSTERECTOMY EIN OR CAH ON RAMP ([id number]) 12/27/2024 Follow your after-visit instructions 02/12/2025 documented as of this encounter Care Teams Transcription Specialist Relationship Specialty Start Date End Date Elsewhere, Pcp PCP - General Internal Medicine 09/11/23 documented as of this encounter
--- OUTSIDE RECORDS SUMMARY | 2025-02-13 21:53 | XMS_ITS ---
Author Organization [facility] Address [address] [place] [address] Care Team Providers Care Fine Grade Bulldozer Operator Name Role Phone Elsewhere, Pcp Primary Care Provider Unavailabl e Active Problems * This document contains information received from the source organization and may not represent a complete record from that organization. Problem Noted Date Diagnosed Date Malignant Neoplasm Of Uterus 12/27/2024 Multiple Sclerosis 11/08/2024 Unspecified Ovarian Cyst Left Side 07/25/2024 PreDiabetes 01/09/2024 Overview (01/09/2024): Impaired fasting glucose prediabetes 12/21/2021 glucose 108 mg dL, 10/20/2022 105 mg dL and 08/28/2023 glucose 103 mg dL with 11/10/2023 A1c 5.8% in prediabetes range (5.7-6.4%) Lifestyle activity and weight loss Radiculopathy Lumbosacral 12/20/2023 Deficiency Vitamin B12 11/22/2023 Gastroesophageal Reflux Disease Without Esophagi tis 11/22/2023 Nodule Thyroid 11/22/2023 Polyp Colon Personal History, Unspecified Type 0 11/22/2023 Anemia Pernicious 11/14/2023 History Of Falling 09/11/2023 Hypertension Essential Primary 04/03/2007 Current Treatment and Therapy Plans No current plan information found. Past Treatment and Therapy Plans No past plan information found. Lifetime Dose Tracking * Chemical Lifetime Dose Automatic Entry Manual Entr y Radiation 15.78 mGy 15.78 mGy 0 mGy Fluoro Time 0.477 minutes 0.477 minutes 0 minutes
--- OUTSIDE RECORDS SUMMARY | 2025-02-13 21:53 | XMS_ITS | Clinical Summary ---
Author Organization [facility] Address [address] [place] [address] Care Team Providers Care Public Relations Professional Name Role Phone Elsewhere, Pcp Primary Care Provider Unavailabl e Source Comments Patient records contain information from all sites at [facility]. For routine questions regarding patient records, call [phone] during business hours, M-F 8:00 AM - 5:00 PM Central Time. Record requests for emergency care only can be directed to [phone] at any time.[facility] Allergies Active Allergy Reactions Criticality Noted Date Comments Shellfish Derived GI intolerance Low 08/01/2023 Medications * This document contains information received from the source organization and may not represent a complete record from that organization. cholecalciferol (VITAMIN D3) 25 mcg (1,000 Unit) capsule Take 1 capsule by mouth daily. 012 Active FLUoxetine (PROzac) 40 mg capsule Take 80 mg by mouth daily. 023 Active lisinopriL (PRINIVIL,ZESTRI L) 40 mg tablet Take 40 mg by mouth daily. 023 Active rosuvastatin (CRESTOR) 10 mg tablet Take 10 mg by mouth daily. 023 Active triamterene-hydr oCHLOROthiazide (MAXZIDE-25) 37.5-25 mg per tablet Take 1 tablet by mouth every morning. 023 Active gabapentin (NEURONTIN) 100 mg capsule Take 200 mg by mouth at bedtime. Active famotidine (PEPCID) 10 mg tablet Take 10 mg by mouth 2 (two) times a day as needed for heartburn or indigestion. Active cyanocobalamin (VITAMIN B12) 500 mcg SL tablet Dissolve 1,000 mcg in the mouth daily. Active sennosides-docus ate sodium (Senokot-S) 8.6-50 mg per tablet Take 1 tablet by mouth 2 (two) times a day as needed for constipation. While on narcotics. Active acetaminophen (TylenoL) 500 mg tablet Take 2 tablets (1,000 mg total) by mouth every 6 (six) hours as needed for pain. Alternate with ibuprofen every 3 hours. Do not exceed 4000 mg or 4 g in 24 hours. Active ibuprofen 200 mg tablet Take 3 tablets (600 mg total) by mouth every 6 (six) hours as needed for pain. Alternate with acetaminophen every 3 hours. Active oxyCODONE (Roxicodone) 5 mg immediate release tabletIndication s:Acute Pain Take 1 tablet (5 mg total) by mouth every 6 (six) hours as needed for pain Indication: Acute Pain. Not relieved by over the counter pain medications. 10 tablet 02/13/20 25 4:47 PM CDT Active ondansetron (Zofran) 4 mg tabletIndication s:Malignant Neoplasm Of Uterus (HCC) Take 1 tablet (4 mg total) by mouth every 6 (six) hours as needed for nausea. 10 tablet 02/14/20 25 9:57 AM CDT Active miSOPROStoL (Cytotec) 200 mcg tablet Take 200 mcg by mouth as directed. One the night before surgery and one the morning of surgery 2024 Discontinued(S top Taking at Discharge) acetaminophen (TylenoL) 500 mg tablet Take 2 tablets (1,000 mg total) by mouth every 6 (six) hours as needed for pain. Alternate with ibuprofen every 3 hours. Do not exceed 4000 mg or 4 g in 24 hours. 2024 Discontinued(S top Taking at Discharge) ibuprofen 200 mg tablet Take 3 tablets (600 mg total) by mouth every 6 (six) hours as needed for pain. Alternate with acetaminophen every 3 hours. 2024 Discontinued(S top Taking at Discharge) oxyCODONE (Roxicodone) 5 mg immediate release tabletIndication s:Acute Pain Take 1 tablet (5 mg total) by mouth every 6 (six) hours as needed for pain Indication: Acute Pain. Not relieved by over the counter pain medications. 10 tablet 12/14/19 5:[address] [facility]AIL[place] 025 2024 Discontinued(S top Taking at Discharge) cephalexin (Keflex) 500 mg capsuleIndicatio ns:Infection Wound Postoperative Initial Take 1 capsule (500 mg total) by mouth 2 (two) times a day for 7 days. 14 capsule 025 2024 L.acidoph-L.bulg -B.bif-S.therm (Bacid) 1 billion cell- 250 mg per tabletIndication s:Infection Wound Postoperative Initial Take 1 tablet by mouth 2 (two) times a day with meals for 7 days. 14 tablet 025 2024 amoxicillin (AmoxiL) 500 mg capsuleIndicatio ns:Infection Wound Postoperative Initial Take 1 capsule (500 mg total) by mouth 3 (three) times a day for 5 days. 15 capsule 025 2024 oxyCODONE (Roxicodone) 5 mg immediate release tabletIndication s:Acute Pain Take 1 tablet (5 mg total) by mouth every 6 (six) hours as needed for pain Indication: Acute Pain. Not relieved by over the counter pain medications. 10 tablet 025 2024 Discontinued Active Problems Problem Noted Date Diagnosed Date Malignant Neoplasm [...] Of Falling 09/11/2023 Hypertension Essential Primary 04/03/2007 Encounters * This document contains information received from the source organization and may not represent a complete record from that organization. Date Type Department Care Team Description 02/13/2025 Clinical Communication Department of Obstetrics and Gynecology, Division of Gynecologic Oncology in [place], [place] [address] [place] [address] Tim Bailey M.D., M.P.H. 02/13/2025 Results Follow-Up Department of Obstetrics and Gynecology, Division of Gynecologic Oncology in [place], [place] [address] [place] [address] Abigail Rasmussen M.D. Cytology Non-ASSAULT AMPHIBIOUS VEHICLE CREWMAN 02/12/2025 8:05 AM CDT Anesthesia Event [facility] [address] [place] [address] Cassandra Davenport M.D. Suzanna Hernández APRN, BORING MILL OPERATOR, DNAP 02/12/2025 7:15 AM CDT - 02/12/2025 12:27 PM CDT Surgery [facility] [address] [place] [address] Abigail Rasmussen M.D. ROBOTIC-ASSISTED HYSTERECTOMY TOTAL ABDOMINAL. 02/12/2025 5:54 AM CDT - 02/13/2025 11:34 AM CDT Hospital Encounter [facility], [facility], Fifth Floor [address] [place] [address] Abigail Rasmussen M.D. Clinical Research Exam; Malignant Neoplasm Of Uterus (HCC) Discharge Disposition: Home or Self Care 01/21/2025 9:30 AM CDT Office Visit Department of Family Medicine, [facility], in [address] [address] Nataly Ferraro APRN, C.N.P., D.N.P. Infection Wound Postoperative Initial (Primary Dx); Preoperative Exam 12/27/2024 2:30 PM CDT Comprehensive Visit Department of Obstetrics and Gynecology, Division of Gynecologic Oncology in [place], [place] [address] [place] [address] Abigail Rasmussen M.D. Cancer Uterus Endometrial Personal History 12/24/2024 Results Follow-Up Department of Obstetrics and Gynecology in [place], [place] [address] [place] [address] Jayy Miller M.D. Surgical Pathology, Frozen Lab 12/13/2024 1:[address] [place] Ancillary Procedure Department of General Surgery 12/13/2024 1:[address] [place] Anesthesia Event [facility] [address] [place] [address] Stephon Cole M.D., J.Vasyl. Wandy Sullivan APRN, BORING MILL OPERATOR, Ph.D. 12/13/2024 12:[address] [place] - 12/13/2024 3:[address] [place] Surgery [facility] [address] [place] [address] Yara Sawant M.B.B.S. LAPAROSCOPIC SALPINGO-OOPHORECTO MY, BILATERAL SALPINGO-OOPHORECTO MY, 12/13/2024 9:[address] [place] - 12/13/2024 9:[address] [place] Hospital Encounter [facility] [address] [place] [address] Yara Sawant M.B.B.S. Unspecified Ovarian Cyst Left Side Discharge Disposition: Home or Self Care from Last 3 Months Immunizations Immunization Administration Dates Next Due Influenza TIV (IM) 09/10/2019, 8,07/18/2017,2012,06/22/2012,08/16/2011,08/03/2010,1 ,08/05/2008,08/15/2007 Influenza high dose QV(65 ye ars or older) (PF) 07/04/2022 Influenza, Quadrivalent, Adj uvanted, Preservative Free 06/28/2023,08/18/2021,06/23/2020 Influenza, Seasonal, Injectable 08/29/20 13,06/22/2012,08/03/2010,2008,08/05/2008,08/15/2007,09/06/2006,1 10/16/2004,09/02/2003 Influenza, Unspecified 06/28/2023,2020,06/23/2020,2018,07/18/2018,07/18/2017,07/08/2016,1 12/01/2014,08/29/2013,06/22/2012, 011,08/03/2010,07/23/2009,08/05/2008,,09/06/2006,08/16/2005,09/02/20 03 PCV13 09/20/2016 PPSV23 09/26/2017 RZV (SHINGRIX) 10/15/2022,08/05/2022 SARS-COV-2 (COVID-19) - MODE RNA (12 YEARS AND OLDER) Fall Seasonal 12/11/2023,11/22/2023(Deferred: Patient Refused - Pt. reports up to date and will bring in next visit.) SARS-COV-2 (COVID-19) - PFIZ ER BIVALENT TS(Discontinued)(12 YEARS OR OLDER) 07/04/2022 Tdap 09/26/2017,12/06/2006 influenza trivalent high dos e (HD)(PF) 08/01/2024,07/08/2016,09/30/2015 influenza trivalent vaccine (6 months and older)(PF) 08/16/2011 influenza vaccine quad (FLUZONE/FLUARIX) (6 months and older)(PF) 07/17/2014 Family History Medical History Relation Name Comments Drug abuse Brother brother age 15 Coronary artery disease Father father age 55 Diabetes Father father age 30 Breast cancer Mother mother age 50 Dementia Mother mother 90age Stroke Mother mother age 90 Transient ischemic attack Mother mother ag e 90 Relation Name Status Comments Brother brother Father father Mother mother Social History Tobacco Use Types Packs/Day Years Used Date Smoking Tobacco: Never Passive Smoke Exposure: Never Smokeless Tobacco: Never Tobacco Cessation:Counseling Given: Not Answered Alcohol Use Standard Drinks/Week Comments Yes 2 (1 standard drink = 0.6 oz pur e alcohol) [facility] Utilities Answer Date Recorded In [...] living situation today? I have a [facility] place to live 02/13/2025 Comments No Sex and Gender Information Value Date Recorded Sex Assigned at Female 10/29/2023 4:[address] [place] Legal Sex Female 8:[address] [place] Gender Identity Female 10/29/2023 4:[address] [place] Sexual Orientation Straight 10/29/2023 4: [address] [place] Last Filed Vital Signs Vital Sign Reading [...] Mass Index 41 02/12/2025 7:16 AM CDT Plan of Treatment Health Maintenance Due Date Last Done Comments CT Colonography 1950 Cologuard 1950 Mammogram 01/08/2025 01/09/2024, 10/09, 10/20/2022, Additional history exists RSV vaccine - (32-36 weeks) or 60+ years (1 - 1-dose 75+ series) 2025 Creatinine Level (Kidney Function Test) 11/08/2025 11/08/2024, 03/25/2024, 11/10/2023, Additional history exists Fasting Glucose for Diabetes Screening 11/08/2025 11/08/2024, 03/25/2024, 12/01/2023, Additional history exists Potassium Level 11/08/2025 11/08/2024, 03/09, 11/10/2023, Additional history exists Sodium Level 11/08/2025 11/08/2024, 03/09, 11/10/2023, Additional history exists Office Visit for Blood Pressure Check / Re-check 01/21/2026 01/21/2025 DTaP,Tdap,and Td Vaccines (3 - Td or Tdap) 09/26/2027 09/26/2017, 12/06/2006 Colonoscopy 12/04/2028 12/04/2023, 10/25/2018 Colorectal Cancer Surveillance 12/04/2028 Pneumococcal vaccine (50+ years) Completed 09/26/2017, 09/20/2016 Bone Density Scan (Osteoporosis Screen) Discontinued 10/16/2017 Zoster Vaccines Completed 10/15/2022, 08/05/2022 Hepatitis B Screening Discontinued 11/10/2023 Hepatitis C Screening Completed 11/10/2023 Influenza Vaccine Completed 08/01/2024, , 06/28/2023, Additional history exists Depression Screening (Annual PHQ-2) Completed 11/08/2024 COVID-19 Vaccine Completed 01/20/2025, , 12/11/2023, Additional history exists Fall Risk Screen (Annual) Completed 02/12/2025 IPV Vaccines Aged Out No longer eligi ble based on patient's age to complete this topic Goals Goal Patient Goal Type Associated Problems Recent Progress Patient-Stated? Author [facility] HYSTERECTOMY EIN OR CAH ON RAMP ([id number]) Care Plan [facility] HYSTERECTOMY EIN OR CAH ON RAMP ([id number]) No Hanane York, RChavaN. Follow your after-visit instructions Care Plan Follow your after-visit instructions No Chely Rogers M.D., M.S. Medical Devices Implanted Type Area Investigator Claims Device Identifier Shelf Expiration Date Model / Serial / Lot Hardware E.G. Pins/Screws/R ods Hardware e.g. pins/screws/ rods Right: Wrist Description:Oct 2023 Knee Implant Knee Implant Bilateral : Knee Description:2010 & 2021 Ocular Lens Ocular Lens Bilateral : Eye Explanted Type Area Investigator Claims Device Identifier Shelf Expiration Date Model / Serial / Lot Stent Other Explanted:09/08 (Quantity not on file) Stent Other Kidney Procedures Procedure Name Priority Date/Time Associated Diagnosis Comments REMOTE OXIMETRY MONITORING CONT. Routine 02/13/2025 1:35 AM CDT REMOTE OXIMETRY MONITORING CONT. Routine 02/13/2025 1:35 AM CDT ADULT OXYGEN THERAPY Routine 02/12/2025 12:20 PM CDT SURGICAL PATHOLOGY, [facility] Routine 02/12/2025 10:13 AM CDT Malignant Neoplasm Of Uterus (HCC) CYTOLOGY NON-ASSAULT AMPHIBIOUS VEHICLE CREWMAN Routine 02/12/2025 9:35 AM CDT Malignant Neoplasm Of Uterus (HCC) LDA ANE ENDOTRACHEAL AIRWAY Routine 02/12/2025 8:18 AM CDT MISC RESEARCH ORDER, B Routine 02/12/2025 8:00 AM CDT Clinical Research Exam LYMPHADENECTOMY SENTINEL PELVIC 02/12/2025 7:35 AM CDT Malignant Neoplasm Of Uterus (HCC) ROBOTIC-ASSISTED HYSTERECTOMY TOTAL ABDOMINAL 02/12/2025 7:35 AM CDT Malignant Neoplasm Of Uterus (HCC) BACTERIAL CULTURE, AEROBIC + SUSC Routine 01/21/2025 10:06 AM CDT Infection Wound Postoperative Initial SURGICAL PATHOLOGY, [facility] Routine 12/13/2024 3:[address] [place] Unspecified Ovarian Cyst Left Side SURGERY IMAGE EXAM Routine 12/13/2024 1: [address] [place] LDA ANE ENDOTRACHEAL AIRWAY Routine 12/13/2024 1:[address] [place] OPERATIVE LAPAROSCOPY 12/13/2024 12:[address] [place] Unspecified Ovarian Cyst Left Side OPERATIVE HYSTEROSCOPY 12/13/2024 12:[address] [place] Unspecified Ovarian Cyst Left Side LAPAROSCOPIC SALPINGO-OOPHORECTOMY 12/13/2024 12:[address] [place] Unspecified Ovarian Cyst Left Side BASIC METABOLIC PANEL, S/P Routine 11/08/2024 12:[address] [place] Preanesthetic Medical Exam BI BREAST DIAGNOSTIC BILATERAL WITH TOMOSYNTHESIS RAD - Routine (most inpatients and all outpatients) 01/09/2024 10:41 AM CDT Intra Abdominal And Pelvic Swelling Mass And Lump Unspecified Site Lump In The Left Breast Lower Inner Quadrant COLONOSCOPY Routine 12/04/2023 12:[address] [place] Polyp Colon Personal History HCV AB SCRN W/REFLEX TO HCV PCR, S Routine 11/10/2023 8:[address] [place] Weakness Leg Left Multiple Sclerosis (HCC) Demyelinating Disease Central Nervous System (HCC) HEPATITIS B SURFACE ANTIGEN Routine 11/10/2023 8:[address] [place] Weakness Leg Left Multiple Sclerosis (HCC) Demyelinating Disease Central Nervous System (HCC) from Last 3 Months or Most Recently Relevant to Health Maintenance Results * Cytology Non-ASSAULT AMPHIBIOUS VEHICLE CREWMAN (02/12/2025 9:35 AM CDT) 02/13/2025 3:22 PM [...] M.D. LAB SURG PATH ORDERABLES Final Result [facility] [address] [place] [address], [facility] [address] [place] [address] * LDA ANE ENDOTRACHEAL AIRWAY (02/12/2025 8:18 AM CDT) Narrative Gudlin, Suzanna Sol APRN, CRNA, DNAP - 02/12/2025 8:18 AM [...] ETT location: oral VL device: glide scope [place] scope blade size: 3 Tube size: 7 [...] Davenport M.D. ANESTHESIA ORDERABLES Final Re sult * Misc Research, Blood (02/12/2025 8:00 AM CDT) Number of Specimens 5 02/12/2025 8:00 AM CDT [facility] Blood (Blood, Venous) 02/12/2025 8:00 AM CDT 02/12/2025 8:00 AM CDT Justyn Cruz M.D. LAB RESEARCH NO RESULT ROUTING Final Result [facility] [address] [place] [address], [facility] [address] [place] [address] * (ABNORMAL) Bacterial Culture, Aerobic + Susceptibility (01/21/2025 10:06 AM CDT) Bacterial Culture, Aerobic + Susc With skin microbiota(A) 01/25/2025 6:03 AM CDT [facility] Bacterial Culture, Aerobic + Susc SCHAALIA (ACTINOMYCES) TURICENSIS 3+ (A) 01/25/2025 6:03 AM CDT [facility] Comment: Notify Microbiology if organism is to be sent to [facility] for susceptibility testing. Skin (Umbilicus) 01/21/2025 10:06 AM CDT 01/21/2025 7:04 PM CDT Comment:Specimen Source Site : Skin us Nataly Ferraro APR N, C.N.P., D.N.P. LAB MICROBIOLOGY - GENERAL ORDERABLES Final Result [facility] [address] [place] [address], [place] [place] [address] * Surgical Pathology, Frozen Lab (12/13/2024 3:[address] [facility]) 12/17/2024 10:39 AM CDT [facility] Report electronically signed by Majo Schmid M.D. I verify that I have examined all relevant slides/material s for the specimen(s) and rendered or confirmed the diagnosis. 12/17/2024 10:39 AM CDT [facility] Gross Description A. Received fresh labeled left fallopian tube and left ovary is a 29 g, 8.9 x 5.5 x 1 cm deflated ovarian cyst with a 5 x 0.5 cm fimbriated fallopian tube. The ovarian cyst shows a smooth outer surface and lining. The wall thickness is uniform (0.1 cm) and the cyst contains minimal serous fluid. No ovarian parenchyma is identified. The fallopian tube shows multiple paratubal cysts. Keyboard Specialist tissue submitted for permanent sections. Grossed by Jimi Vann, ROSY([facility] B. Received fresh labeled right fallopian tube, right ovarian mass, right ovary is an 8.8 g, 2.9 x 1.5 x 1.5 cm ovary with 6.5 x 0.5 cm fallopian tube. The ovary has a smooth outer surface and cystic and solid cut surface. There is a 0.8 x 0.6 x 0.5 cm protruding cyst from the ovary. The fallopian tube has multiple paratubal cysts. Keyboard Specialist tissue submitted for permanent sections. Grossed by Jimi Vann PA([facility]). C. Received fresh labeled uterine polyps is a 2.1 x 1.0 x 0.5 cm aggregate of friable pink-isaac tissue fragments. All submitted for permanent sections. Grossed by Jimi Vann, ROSY([facility]). 12/17/2024 10:39 AM CDT [facility] Block Summary A Left fallopian tube and left ovary A1 Left ovary cyst 1 A2 Left ovary cyst 2 A3 Left ovary cyst 3 A4 Left fallopian tube A5 Left fimbria B Right fallopian tube, right ovarian mass, right ovary B1 Right ovary and fallopian tube B2 Right fimbria C Uterine polyps C1 Uterine polyps 12/17/2024 10:39 AM CDT [facility] Interpretation FINAL DIAGNOSIS A. Ovary and fallopian tube, left, salpingo-oophor ectomy: Ovary: Serous cystadenoma. Fallopian tube: Unremarkable fallopian tube including fimbria and complete cross-section. B. Ovary, fallopian tube and mass, right, salpingo-oophor ectomy: Ovary: Endometriotic cyst with mucinous and eosinophilic metaplasia. Fallopian tube unremarkable fallopian tube including fimbria and complete cross-section C. Endometrium, polypectomy: Endometrioid adenocarcinoma, FIGO grade 1, arising in a background of complex atypical hyperplasia. Digital imaging was used in the diagnostic assessment of this case. 12/17/2024 10:39 AM CDT [facility] Tissue (Fallopian Tube, Left) 12/13/2024 3:[address] [place] Tissue (Fallopian Tube, Right) 12/13/2024 3:[address] [place] Tissue (Uterus) 12/13/2024 3 :[address] [place] Yara RojasBChavaS. LAB SURG PATH ORDER PILAR Final Result Performing Organization Address City/State/[facility] Co de Phone Number [facility] [address] [place] [address], [place] [facility] [address] [place] [address] * lap-Surgery Image Exam (12/13/2024 1:[address] [facility]) 12/13/2024 1:[address] [place] Narrative IIMS - 12/13/2024 4:[address] [place] This order has been created and auto-finalized to support the import of images acquired without order. The clinical documentation to support these images can be found on the encounter that produced images. us Provider Not In System IMG NON RAD IMAGING PROCE DURES Final Result Performing Organization Address [facility] Co de Phone Number II NA * LDA ANE ENDOTRACHEAL AIRWAY (12/13/2024 1:[address] [facility]AIL[place]) Narrative Wandy Sullivan APRN, CRNA, Ph.D. - 12/13/2024 1:[address] [place] Wandy Sullivan APRN, CRNA, Ph.D. 12/13/2024 1:49 PM Airway Date/Time: 12/13/2024 1:32 PM Performed by: Wandy Sullivan APRN, CRNA, Ph.D. Authorized by: Stephon Cole M.D., J.D. Patient location during procedure: OR / Procedure Area PROCEDURE DETAILS: Mask difficulty assessment: oral/nasal airway needed Final airway type: video laryngoscope Laryngeal Manipulation: no Final best view of glottic structures - Cormack/Lehane Score: grade 2A ETT location: oral VL device: glide scope [place] scope blade size: 3 Tube size: 7 ETT distance at teeth/gum: 22 Oral tube type: standard ETT Cuffed: yes Number of attempt to successful placement: 1 Airway confirmation: bilateral breath sounds, positive ETCO2 and bilateral chest rise Other previous techniques attempted: none Additional Comments Short chin PRE PROCEDURE DETAILS: Pre evaluation for airway management: procedure Urgency: elective Preop assessment of probable difficulty: questionable / suspicious difficult airway Preoxygenation: bag valve mask SEDATION / ANESTHESIA Anesthesia method: anesthesia POST PROCEDURE DETAILS: Procedure outcome: successful Notable Events: no complications Stephon Cole M.D., J.D. ANESTHESIA ORDER PILAR Final Result * (ABNORMAL) Basic Metabolic Panel (11/08/2024 12:[address] [place]) Potassium, P 4.2 3.6 - 5.2 mmol/L 11/08/2024 6:[address] [facility] OWAT Sodium, P 140 135 - 145 mmol/L 11/08/2024 6:[address] [facility] Chloride, P 103 98 - 107 mmol/L 11/08/2024 6:[address] [facility] OW[place] Bicarbonate, P 26 22 - 29 mmol/L 11/08/2024 6:[address] [facility] Anion Gap, P 11 7 - 15 11/08/2024 6:[address] [facility] OW[facility] BUN (Blood Urea Nitrogen), P 23(H) 6 - 21 mg/dL 11/08/2024 6:[address] [facility] [facility] Creatinine 0.66 0.59 - 1.04 mg/dL 11/08/2024 6:[address] [facility] OW[facility] Estimated GFR (eGFR) >90 >=60 mL/min/BSA 11/08/2024 6:[address] [facility] OWAT Comment: Estimated GFR calculated using the 2020 CKD_EPI creatinine equation. Calcium, Total, P 9.2 8.8 - 10.2 mg/dL 11/08/2024 6:[address] [facility] OWAT Glucose, P 93 70 - 140 mg/dL 11/08/2024 6:[address] [facility] OWAT Blood (Blood, Venous) 11/08/2024 12:[address] [place] 11/08/2024 5:[address] [place] us Justyn Valladares APRN, C.N.P., M.S.N. LAB BLOOD ADD-ON Final Result [facility] [address] [place] [address], [facility] [place] [address] [place] [address] * BI Breast Diagnostic Bilateral with Tomosynthesis (01/09/2024 10:41 AM CDT) Anatomical Region Laterality Modality Breast, Breast Imaging RST L OS, Breast Imaging ARZ LOS, Breast Imaging FLA LOS Bilateral Mammography Addenda Addendum by Diamante Moss M.D. on 01/10/2024 4:53 PM CDT ADDENDUM: AMENDMENT TO ADD COMPARISON EXAMS COMPARISON EXAMS: Outside bilateral screening mammograms without intravenous contrast dated 10/20/2022, 10/18/2021, 10/13/2020, 10/10/2019, 09/27/2018 and 09/26/2017. Left breast targeted ultrasound 10/18/2021. FINDINGS: When compared to prior exams, no suspicious findings are evident. The calcifications in the right slightly lower inner breast at posterior depth are stable dating back to at least mammogram 10/13/2020 and are deemed benign by stability. The lobulated mass in the left breast at 12:30 8 cm from the nipple is stable to slightly decreased in size since outside ultrasound 10/18/2021 measuring 1.2 x 0.5 x 0.9 cm; previously 1.4 x 0.4 x 1.3 cm in keeping with a benign process, most likely a soft tissue hemangioma given the previous echogenic appearance. RECOMMENDATIONS: Annual Screening Mammogram ASSESSMENT: BI-RADS: 2: Benign. Impressions 01/09/2024 12:37 PM CDT 1. Lobulated isoechoic mass in the left breast with color Doppler flow is probably benign and may be on the basis of a fibroadenoma or hemangioma; however comparison with prior exams is recommended. 2. A small group of round, coarse calcifications in the right breast are probably benign, but comparison with prior exams is recommended. RECOMMENDATION: Comparison With Prior Exam(s) Comparison with outside mammogram. ASSESSMENT: BI-RADS: 0 - Incomplete: Need Prior Mammograms for Comparison. Narrative 01/09/2024 12:37 PM CDT EXAM: BI BREAST DIAGNOSTIC BILATERAL WITH TOMOSYNTHESIS, BI ULTRASOUND BREAST FOCUSED LEFT INDICATION: CT directed left breast evaluation. COMPARISON: CT chest 12/07/2023. No prior mammograms are available for comparison purposes. DENSITY: b. There are scattered areas of fibroglandular density. FINDINGS: Bilateral diagnostic mammogram was obtained for a mass identified in the left breast on CT chest 12/07/2023. There is a persistent lobulated mass in the left upper slightly outer breast at posterior depth which persists with spot compression. In the right lower slightly inner breast at far posterior depth is a group of round, coarse calcifications measuring 5 x 5 x 6 mm located 8.8 cm from the nipple. Targeted ultrasound of the left breast at 12:00 8 cm from the nipple demonstrates a lobulated isoechoic mass with scattered cystic spaces and color Doppler flow measuring 1.2 x 0.5 x 1.9 cm. Both the boot and shoe laborer and Dr. Moss participated in the ultrasound evaluation. Findings and management were discussed with the patient. All questions were addressed. Procedure Note Diamante Moss M.D. - 01/09/2024 EXAM: BI BREAST DIAGNOSTIC BILATERAL WITH TOMOSYNTHESIS, BI ULTRASOUNDBREAST FOCUSED LEFT INDICATION: CT directed left breast evaluation. COMPARISON: CT chest 12/07/2023. No prior mammograms are available forcomparison purposes. DENSITY: b. There are scattered areas of fibroglandular density. FINDINGS: Bilateral diagnostic mammogram was obtained for a massidentified in the left breast on CT chest 12/07/2023. There is a persistentlobulated mass in the left upper slightly outer breast at posterior depthwhich persists with spot compression. In the right lower slightly inner breast at far posterior depth is a groupof round, coarse calcifications measuring 5 x 5 x 6 mm located 8.8 cm fromthe nipple. Targeted ultrasound of the left breast at 12:00 8 cm from the nippledemonstrates a lobulated isoechoic mass with scattered cystic spaces andcolor Doppler flow measuring 1.2 x 0.5 x 1.9 cm. Both the boot and shoe laborer and Dr. Moss participated in the ultrasoundevaluation. Findings and management were discussed with the patient. Allquestions were addressed. IMPRESSION: 1. Lobulated isoechoic mass in the left breast with color Doppler flow isprobably benign and may be on the basis of a fibroadenoma or hemangioma;however comparison with prior exams is recommended. 2. A small group of round, coarse calcifications in the right breast areprobably benign, but comparison with prior exams is recommended. RECOMMENDATION: Comparison With Prior Exam(s) Comparison with outside mammogram. ASSESSMENT: BI-RADS: 0 - Incomplete: Need Prior Mammograms forComparison. Grupo Rojas B Landon., B.A.O., Ph.D. [facility] BI PROCEDURES Edited Result - Final * Colonoscopy (12/04/2023 12:[address] [facility]) 12/04/2023 12:[address] [facility] Impressions [facility] - 12/04/2023 2:[address] [facility] Post-op Diagnoses: - The entire examined colon is normal on direct and retroflexion views. - No specimens collected. Narrative [facility] - 12/04/2023 2:[address] [facility] GI Patient Name: Martha Brooks Date of : 1950 Age: 73 Procedure Date: 12/04/2023 Procedure: Colonoscopy Providers: Vik Hatfield MD Referring Provider: Alta Donnelly Pre-op Diagnoses: High risk colon cancer surveillance: Personal history of colonic polyps Recommendation: - Return to referring physician. - NEGATIVE SCREENING COLONOSCOPY: This exam was negative for any precancerous colorectal polyps with an adequate bowel preparation. For average risk patients (no family history of colon cancer in first degree relatives and no personal history of polyps), the recommended interval for screening colonoscopy is 10 years. Colonoscopy may need to be repeated earlier if new symptoms develop or if there is a change in the patient's family history which would place them at increased risk of colorectal cancer. Findings: The entire examined colon appeared normal on direct and retroflexion views. Procedural Details: The patient was seen, evaluated, history reviewed, airway and heart-lung exams were performed by licensed provider and were satisfactory for planned level of sedation care. The risks, benefits and alternatives for the procedure and sedation were discussed and informed consent was obtained. A procedural pause was conducted in the presence of assisting personnel to verify the correct patient identity and procedure to be performed. Throughout the procedure, the patient's blood pressure, pulse, and oxygen saturations were monitored continuously. The Colonoscope was introduced under direct vision through the anus and advanced to the cecum, identified by appendiceal orifice and ileocecal valve. The colonoscopy was performed without difficulty. The patient tolerated the procedure well. The quality of the bowel preparation was evaluated using the BBPS ([place] Bowel Preparation Scale) with scores of: Right Colon = 2 (minor amount of residual staining, small fragments of stool and/or opaque liquid, but mucosa seen well), Transverse Colon = 2 (minor amount of residual staining, small fragments of stool and/or opaque liquid, but mucosa seen well) and Left Colon = 2 (minor amount of residual staining, small fragments of stool and/or opaque liquid, but mucosa seen well). The total BBPS score equals 6. The ileocecal valve, appendiceal orifice, and rectum were photographed. Estimated Blood Loss: Estimated blood loss: none. Complications: No immediate complications. Sedation: Moderate (conscious) sedation was administered by the nurse and supervised by the endoscopist. The patient's oxygen saturation, heart rate, blood pressure and response to care were monitored. Total physician intraservice time was 56 minutes. Attending Participation: I personally performed the entire procedure. Vik Hatfield MD 12/04/2023 2:24:02 PM This report has been signed electronically. Number of Addenda: 0 us Alta Donnelly M.D. GI PROCEDURE ORDERABLES Fin al Result Performing Organization Address City/[facility]/ZIP Co de Phone Number [facility] * HCV Ab Scrn w/Reflex to HCV PCR, Serum (11/10/2023 8:[address] [facility]AIL[facility]) HCV Ab Screen, S Negative Negative 11/10/2023 11:[address] [facility] Comment:Iezicg-og-vgzfoi rat io is <1.00. Blood (Blood, Venous) 11/10/2023 8:[address] [facility] 11/10/2023 10:[address] [facility]AIL[facility] Grupo Rojas, B .Ch., B.A.O., Ph.D. LAB MICROBIOLOGY - BLOOD ORDERABLES Final Result [facility] [address] [place] [address] [facility] [address] [place] [address] * Hepatitis B Surface Antigen (11/10/2023 8:[address] [facility]AIL[facility]) HBs Antigen, S Negative Negative 11/10/2023 11:[address] [facility] Blood (Blood, Venous) 11/10/2023 8:[address] [facility] 11/10/2023 10:[address] [facility]AIL[facility] Grupo Rojas, B .Paul., B.A.O., Ph.D. LAB MICROBIOLOGY - BLOOD ORDERABLES Final Result [facility] [address] [place] [address] [facility] [address] [place] [id number] from Last 3 Months or Most Recently Relevant to Health Maintenance Additional Health Concerns Active Problems Noted Date Diagnosed Date [facility] HYSTERECTOMY EIN OR CAH ON RAMP ([id number] 1/[id number]) 12/27/2024 Follow your after-visit instructions 02/12/2025 Insurance 2015 [place] [id number] [facility] MEDICARE Advance Directives For more information, please contact: [phone] * Full Code (Latest Code Status on File) Date Activated Date Inactivated Comments 02/12/2025 3:35 PM 02/13/2025 1:34 PM Question Answer Comments Full Code: Not Discussed Due to: Patient not available * Full Code Date Activated Date Inactivated Comments 02/12/2025 6:57 AM 02/12/2025 3:35 PM Question Answer Comments Full Code: Discussed * Full Code Date Activated Date Inactivated Comments 12/13/2024 10:16 AM 12/13/2024 11:18 PM Question Answer Comments Full Code: Discussed Care Teams Public Relations Professional Relationship Specialty Start Date End Date Elsewhere, Pcp PCP - General Internal Medicine 09/11/23
--- OUTSIDE RECORDS SUMMARY | 2025-02-13 21:53 | XMS_ITS | Encounter Summary ---
Author Organization [facility] Address [address] [place] [address] Care Team Providers Care Pilot Fuel Engineer Name Role Phone Elsewhere, Pcp Primary Care Provider Unavailabl e Reason for Referral * Outpatient (Routine) - Authorized Specialty Diagnoses / Procedures Referred By Shawn t Referred To Contact Obstetrics and Gynecology Chely Rogers M.D., M.S. [address] [place] [address] Phone: tel: fax: [facility] Referral ID Status Reason Start Date Expiration Date V isits Requested Visits Authorized [id number] Authorized 02/12/2025 08/14/2026 1 1 Scheduling Instructions Postop in 6 weeks with AEROSOL LINE OPERATOR/PA or wealth management consultant Encounter Details Date Type Department Care Team (Latest Contact Info) Description 02/12/2025 5:54 AM CDT - 02/13/2025 11:34 AM CDT Hospital Encounter , [facility], [facility], Fifth Floor [address] [place] [address] Abigail Rasmussen M.D. [address] [place] [address] Clinical Research Exam; Malignant Neoplasm Of Uterus (HCC) Discharge Disposition: Home or Self Care Social History Tobacco Use Types Packs/Day Years Used Date Smoking Tobacco: Never Passive Smoke Exposure: Never Smokeless Tobacco: Never Alcohol Use Standard Drinks/Week Comments Yes 2 (1 standard drink = 0.6 oz pur e alcohol) [facility] Utilities Answer Date Recorded In the past [...] your living situation today? I have a [facility] place to live 02/13/2025 Comments No Sex and Gender Information Value Date Recorded Sex Assigned at Female 10/29/2023 4:34 PM PRINT LINE SUPERVISOR Legal Sex Female 8:57 AM PRINT LINE SUPERVISOR Gender Identity Female 10/29/2023 4:34 PM PRINT LINE SUPERVISOR Sexual Orientation Straight 10/29/2023 4: 34 PM PRINT LINE SUPERVISOR documented as of this encounter Last Filed [...] AM CDT DISCHARGE SUMMARY BRIEF OVERVIEW Hospital: [facility] Discharge Provider: Abigail Rasmussen M.D. [...] [1] ACTIVE ISSUES REQUIRING FOLLOW UP See [facility] OUTPATIENT FOLLOW UP For appointment details refer to your Patient Appointment Guide. TEST RESULTS PENDING AT DISCHARGE Pending Labs Order Current Status [facility] Endometrial Carcinoma Panel, Next-Generation Sequencing, Tumor Collected (02/12/25 105) Mismatch Repair (MMR) Protein Immunohistochemistry Only, Tumor Collected (02/12/25 105) Cytology Non-CRISIS SPECIALIST In process Surgical Pathology, Frozen Lab Preliminary [...] OF PROCEDURE(S): Robotic-Assisted Total Abdominal Hysterectomy, Left [place] Pelvic Lymphadenectomy PROCEDURAL COMPLICATIONS: None POSTOPERATIVE COURSE: Uncomplicated. The patient was admitted POD#0 for postanesthesia dizziness. On POD#1 her dizziness resolved and she ambulated without difficulty. She was discharged home after meeting milestones. PATHOLOGY: Will follow-up final pathology. CYTOLOGY: Order Name Source Comment Collection Info Order Time [facility] ORDER, B Blood, Venous PINK PINK PINK PINK PINK PINK PINK PINK PINK PINK PI: Justyn Cruz M.D. SC: Lubna Forbes R.N. IRB#: [id number] GRANADO: [id number] Study Alias: Paul Subject ID: [id number] Visit: ENROLLMENT Collection Instructions: Draw tubes provided in Kit Special Instructions: * Forward this document and [facility] Anuelcole[facility] * Study Collection only? YES / NO 02/12/2025 6:57 AM Region: [place] Region Number of tubes for this collection [...] be released immediately? Manual release only CYTOLOGY NON-CRISIS SPECIALIST Pelvis Collected By: Abigail Rasmussen M.D. 02/12/2025 [...] arranged with your surgical team at the [place] [address]. You will be contacted with your appointment details. Any questions regarding your appointment shouldbe directed to the human resources coordinator at . CONTACT INFORMATION Instructions and Contact Information for Concerns, Issues, or Problems -If you experience a medical emergency, please call your local emergency response telephone number.For other questions, call the [facility] 24-hr telephone number: . Ask to be [...] For urgent questions and/or concerns, call the [facility] seed yeast operator at and request to speak to the physician financial planning consultant for your surgical team. NOTE TO CAREGIVERS [...] you want to locate the nearest MARY-authorized legal collector to you, this can be found at: https://apps.deadiversion.[employer] [facility] [employer].gov/pubdispsearch/spring/main If you currently smoke cigarettes, cigars, e-cigarettes, or pipes; chew tobacco; or have done so inthe past 12 months, it is important to quit. Talk with your physician about different ways to stop smoking. For additional information about smoking cessation, go to: http://www.[facility].org/stop-smoking or call 203-992-9996. CONSULTS ORDERED DURING THIS ADMISSION IP CONSULT TO CARE MANAGEMENT CONDITION AT DISCHARGE stable Discharge instructions were provided to the patient and caregiver(s). documented in this encounter Discharge Instructions * Discharge Instructions* Adair Zarate - 02/13/2025 8:23 AM CDT You were discharged from the [facility] Gynecologic Surgery - Rasmussen Service. Please identify this service name if you call with questions after hospitalization. * Attachments The following attachments cannot be sent through Care Everywhere. * Ondansetron (By mouth, Into the mouth) ([place] Islander) documented in this encounter Medications at Time [...] for SIC teaching. Chely Rogers M.D., M.S. CRISIS SPECIALIST ONC Fellow Please direct questions/concerns to service pager. * Vivi Lucio PharmChavaD., R.Ph., [facility] - 02/12/2025 8:32 PM CDT [...] method is an electrochemiluminescence assay manufactured by [employer] and performed on the Kosta system. [...] the patient that in our practice at [facility], we sometimes perform overlapping surgeries, meaning that [...] Discharge Planning (ESDP 15) Previous Assessment: No Manager Freelance Services Used: No Primary Language: [place] Islander Manager Freelance Services Used: No Person(s) Present During Interview: patient History of Present Illness #1 Malignant Neoplasm Of Uterus (HCC) Social History Marital Status: Family / Household: Lives with Support System: spouse, children, family members, and friends/neighbors Primary Caregiver: self Social Drivers of Health with Concerns Utilities: At Risk (12/26/2024) [facility] Utilities Threatened with loss of utilities: Yes Intimate Partner Violence: Not on file OBJECTIVE Finance/Insurance Primary insurance: MEDICARE A AND B Secondary insurance: [place] benefits: No Advance Directives Legal Decision Maker: Self Baseline Functional Status Baseline Activities of Daily Living Mobility: Modified independent Dressing: Independent Feeding: Independent Bathing: Independent Grooming: Independent Toileting: Independent Behavior: Pleasant, Appropriate, Calm, Cooperative, Oriented Communication: Talks, Understands speaking, Understands [place] Islander Shopping: Independent Medication Management: Independent Housekeeping: Independent Meal Prep: Independent Assistive Devices: Cane, Tub/shower chair/bench, Grab bars - toilet, Grab bars - wall, Hand held shower, Eyeglasses, Cellphone, Blood pressure cuff Transportation: Independent to drive Managing Finances: Independent Baseline Services/Resources Primary care clinic and provider: PCP Wandy Sterling MD [address] [place] [address] Additional Resources: Additional Services: NA Anticipated Needs Functional Status: None Assistive Devices: None Anticipated Modifications to the Patient's Home: None Transportation Needs: Support from family Does the patient need discharge transport arranged?: No Phone Number for Ride/Caregiver: Conrado [phone] Anticipated Discharge Destination: Home or Self Care Referrals Initiated: None wood gluer provided Care Management Brochure ([id number]), information regarding the dismissal process, and the Senior Linkage Line ([place] Board on Aging) handout. ASSESSMENT / PLAN ASSESSMENT: The wood gluer met with Martha Elizabeth Eliotmegan to discuss her current hospitalization and home going needs. The patient was unaccompanied. The patient was a reliable historian. The role of wood gluer was reviewed. The patient reviewed her prior level of care and support system. The patient receives support from her , children, and extended family. When case management entered the room, the patient was lying in bed watching television, alert, andoriented. Upon meeting with the patient, the ed case manager introduced themselves, their role within [...] be provided by her and children . wood gluer recommendations include: home delivery of groceries and [...] will be provided by family-- Conrado . wood gluer encouraged the patient to reach out with [...] Post-op Diagnosis Malignant Neoplasm Of Uterus (HCC) Belting Inspector A lpn medical assistant actively participated and was necessary for [...] Non metastatic. Method: ICG. Left lymph node: [place] Lymph Nodes. Left lymph node: External iliac. Right lymph node: Not Assessed. Description of Procedure The patient was prepped and draped in synchronous position in [facility]. After sterile prep and drape, a Joseph [...] location and the right lateral location. An occupational therapist assistant port was placed in the right paramedian location. We then took down the omental adhesion using Endoshears. We were then able to place the eugenio-umbilical robotic trocar. The robot was then docked. The patient had a previous bilateral salpingo-oophorectomy. We began by dividing the round ligament, developing each pararectal space, and identifying the ureter. [place] lymph nodes were visualizedon the left and [...] compromised. Hemostasis was satisfactory. The fascia of occupational therapist assistant port was closed with the Salty-Camron [...] OF PROCEDURE(S): Robotic-Assisted Total Abdominal Hysterectomy, Left [place] Pelvic Lymphadenectomy PROCEDURAL COMPLICATIONS: None POSTOPERATIVE COURSE: Uncomplicated. The patient was admitted POD#0 for postanesthesia dizziness. On POD#1 her dizziness resolved and she ambulated without difficulty. She was discharged home after meeting milestones. PATHOLOGY: Will follow-up final pathology. CYTOLOGY: Order Name Source Comment Collection Info Order Time [facility] ORDER, B Blood, Venous PINK PINK PINK PINK PINK PINK PINK PINK PINK PINK PI: Justyn Cruz M.D. SC: Lubna Forbes R.N. IRB#: [id number] GRANADO: [id number] Study Alias: [facility] Subject ID: [id number] Visit: ENROLLMENT Collection Instructions: Draw tubes provided in Kit Special Instructions: * Forward this document and samples to Juju CHIRINOS * Study Collection only? YES / NO 02/12/2025 6:57 AM Region: [facility] Number of tubes for this collection [...] be released immediately? Manual release only CYTOLOGY NON-CRISIS SPECIALIST Pelvis Collected By: Abigail Rasmussen M.D. 02/12/2025 [...] arranged with your surgical team at the [place] [address]. You will be contacted with your appointment details. Any questions regarding your appointment shouldbe directed to the human resources coordinator at . CONTACT INFORMATION Instructions and Contact Information for Concerns, Issues, or Problems -If you experience a medical emergency, please call your local emergency response telephone number.For other questions, call the [facility] 24-hr telephone number: . Ask to be [...] For urgent questions and/or concerns, call the [facility] seed yeast operator at and request to speak to the physician financial planning consultant for your surgical team. NOTE TO CAREGIVERS - If the patient appears very ill or is not easy to arouse take her directly to the nearest emergency room or call [phone] for emergency assistance. Do not wait to [...] you want to locate the nearest MARY-authorized legal collector to you, this can be found at: https://apps.deadiversion.[employer].gov/pubdispsearch/spring/main If you currently smoke cigarettes, cigars, e-cigarettes, or pipes; chew tobacco; or have done so inthe past 12 months, it is important to quit. Talk with your physician about different ways to stop smoking. For additional information about smoking cessation, go to: http://www.[facility].org/stop-smoking or call 811-895-1371. documented in this encounter Plan of Treatment [...] for 1 Occurrences starting 02/12/2025 until 02/21/2025 [facility] Endometrial Carcinoma Panel, Next-Generation Sequencing, Tumor Lab Routine Malignant Neoplasm Of Uterus (HCC) Release Upon Ordering for 1 Occurrences starting 02/12/2025 until 02/21/2025 Scheduled Referrals Name Type Priority Associated Diagnoses Order Schedule Obstetrics and Gynecology Post Op (clinic) Outpatient Referral Routine Expected: 03/20/2025 (Approximate), Expires: 02/13/2028 documented as of this encounter Goals Goal Patient Goal Type Associated Problems Recent Progress Patient-Stated? Author [facility] HYSTERECTOMY EIN OR CAH ON RAMP ([id number]) Care Plan [facility] HYSTERECTOMY EIN OR CAH ON RAMP ([id number]) Hanane Sahu R.N. documented as of this encounter Procedures Procedure Name Priority Date/Time Associated Diagnosis Comments REMOTE OXIMETRY MONITORING CONT. Routine 02/13/2025 1:35 AM CDT REMOTE OXIMETRY MONITORING CONT. Routine 02/13/2025 1:35 AM CDT ADULT OXYGEN THERAPY Routine 02/12/2025 12:20 PM CDT SURGICAL PATHOLOGY, [facility] LAB Routine 02/12/2025 10:13 AM CDT Malignant Neoplasm Of Uterus (HCC) CYTOLOGY NON-CRISIS SPECIALIST Routine 02/12/2025 9:35 AM CDT Malignant Neoplasm Of Uterus (HCC) MISC RESEARCH ORDER, B Routine 8:00 AM CDT Clinical Research Exam LYMPHADENECTOMY SENTINEL PELVIC 02/12/2025 7:35 AM CDT Malignant Neoplasm Of Uterus (HCC) ROBOTIC-ASSISTED HYSTERECTOMY TOTAL ABDOMINAL 02/12/2025 7:35 AM CDT Malignant Neoplasm Of Uterus (HCC) documented in this encounter Results * Cytology Non-CRISIS SPECIALIST (02/12/2025 9:35 AM CDT) 02/13/2025 3:22 PM [...] PATH ORDERABLES Final Result Performing Organization Address [facility] Co de Phone Number [facility] [address] [place] [address] * [facility] Research, Blood (02/12/2025 8:00 AM CDT) Number of Specimens 5 02/12/2025 8:00 AM CDT HSS Blood (Blood, Venous) 02/12/2025 8:00 AM CDT 02/12/2025 8:00 AM CDT us Justyn Cruz M.D. LAB RESEARCH NO RESULT ROUTING Final Result Performing Organization Address [facility] Co de Phone Number [facility] [address] [place] [address], [address] [address] documented in this encounter Visit Diagnoses Diagnosis [...] oral, Every 6 hours, First dose on Mon02/13/25 at 1730, start 6 hours after last [...] additional analgesic benefit. 1744 (Given - Provider: Liliana Tubbs, RChavaNChava)2303 (Given - Provider: Melanie Mccormick R.N.) 0435 [...] 1600 1614 (Continued from OR - Provider: Liliana Tubbs, RChavaNChava)1740 (New Bag - Provider: Liliana Tubbs, R.NChava)2043 (New Bag - Provider: Melanie Mccormick R.N.) 0508 (Rate/Dose Verify - Provider: Melanie Mccormick R.N.)0629 (Stopped - Provider: Melanie Mccormick R.N.) Lactated Ringer's (CANCELED) 20 mL/hr, intravenous, Continuous, Starting on Mon02/12/25 at 1200, PACU & Post-Op 1215 (Continued from OR - Provider: Erick J Kluczny, R.N.) PRN Medication Order 02/11/2025 02/12/2025 02/13/2025 [...] hours 1337 (Given - Provider: Erick Reyes REverton) acetaminophen tablet 1,000 mg (TylenoL) (CANCELED) 1,000 [...] prochlorperazine). 2036 (Given - Provider: Melanie Mccormick RMacie.) 0743 (Given - Provider: Justyn Carpio R.N.) [...] Concerns Active Problems Noted Date Diagnosed Date [facility] HYSTERECTOMY EIN OR CAH ON RAMP ([id number] /[id number]) 12/27/2024 documented as of this encounter Care Teams Pilot Fuel Engineer Relationship Specialty Start Date End Date Elsewhere, Pcp PCP - General Internal Medicine 09/11/23 documented as of this encounter
--- OUTSIDE RECORDS SUMMARY | 2025-02-13 21:53 | XMS_ITS | Clinical Summary ---
Author Organization [facility] Address [address] [place] [address] Care Team Providers Care Education Rep Name Role Phone Unavailable Primary Care Provider [...] Years Used Date Smoking Tobacco: Never Assessed Comments Unknown Sex and Gender Information Value Date Recorded Sex Assigned at Not on file Legal Sex Female 12:49 PM PST Gender Identity Female 12/07/2020 12:50 PM PST Sexual Orientation Not on file Plan of Treatment Not on file
[2025-02-13 22:09] LABS: Albumin* 3.6 g/dL (3.3-5.0); Chloride* 104 mmol/L (96-114); Potassium* 3.9 mmol/L (3.6-5.1); Sodium* 138 mmol/L (135-149)
[2025-02-13 22:12] LABS: Alanine Aminotransferase* 154 U/L (4-35); Alkaline Phosphatase* 64 U/L (40-150); Anion Gap 5 mEq/L (7-15); Aspartate Amino Transferase* 105 U/L (12-35); Bilirubin Total* 0.7 mg/dL (0.1-1.5); Blood Urea Nitrogen* 23 mg/dL (7-30); Calcium* 8.4 mg/dL (8.4-10.6); Carbon Dioxide* 29 mmol/L (20-32); Creatinine* 0.5 mg/dL (0.5-1.5); Estimated Glomerular Filt Rate 98 ml/min; Glucose* 125 mg/dL (60-115); Total Protein* 6.7 g/dL (6.0-8.3)
[2025-02-13 22:17] LABS: PCR FLU A Negative PCR FLU A (Negative); PCR FLU B Negative PCR FLU B (Negative); PCR RSV Negative PCR RSV (Negative); SARS PCR* Negative SARS-CoV-2 (Negative)
[2025-02-14] VITALS (9 sets, daily range): BP systolic 123–167; BP diastolic 78–96; PULSE 64–79; RESP 16–18; TEMP 36.7–37.4; O2SAT 93–95; BMI 42.3
--- NOTE | 2025-02-14 | CRLHL7_ITS ---
For Patients: As a result of the Century Cures Act, medical imaging exams and procedure reports are released immediately into your electronic medical record. You may view this report before your referring provider. If you have questions, please contact your health care provider. INDICATION: Clinical suspicion for PE, elevated LFTs. TECHNIQUE: CT chest PE was acquired with 100 cc Omnipaque 350 IV contrast. COMPARISON: None. FINDINGS: Heart and vasculature: Contrast opacification of the pulmonary arterial tree is adequate. No sign of pulmonary embolism. Heart size is normal. Thoracic aorta and pulmonary artery are normal in caliber. Coronary artery calcifications. Atherosclerotic calcifications of the aorta. Lungs and pleura: No overtly suspicious nodular or definite acute infiltrate. Mild subsegmental atelectasis and/or scarring. No pleural effusions, pleural thickening, or pneumothorax. Lymph nodes/mediastinum: No pathologic mediastinal, hilar, or axillary adenopathy. Chest wall: No masses. Extensive left chest wall emphysema, possibly related to recent surgery. Upper abdomen: No acute or significant findings. Small hiatal hernia. Bones: No acute or suspicious lesions. IMPRESSION: 1. No definite acute findings. Specifically, no evidence of pulmonary embolism. 2. Extensive left chest wall superficial soft tissue emphysema may be related to recent surgery. Please note that all CT scans at this facility use dose modulation, iterative reconstruction, and/or weight-based dosing when appropriate to reduce radiation dose to as low as reasonably achievable. Dictated by Herbert Mendoza MD @ 02/14/2025 2:20:37 AM (Electronically Signed)
--- NOTE | 2025-02-14 | CRLHL7_ITS ---
For Patients: As a result of the Century Cures Act, medical imaging exams and procedure reports are released immediately into your electronic medical record. You may view this report before your referring provider. If you have questions, please contact your health care provider. INDICATION: Elevated LFTs, hysterectomy 02/13/2025, nausea. TECHNIQUE: CT abdomen and pelvis acquired with 70 cc of Isovue 370 IV contrast. COMPARISON: 08/16/2023. FINDINGS: Lower chest: Unremarkable. Liver: Unremarkable. Normal in size and attenuation. No suspicious masses. Gallbladder and bile ducts: Cholecystectomy. No biliary dilatation. Pancreas: Unremarkable. No mass or inflammation. Spleen: Unremarkable. Normal in size. No masses. Adrenal glands: Unremarkable. No nodules. Kidneys: Unremarkable. No suspicious masses, stones, or hydronephrosis. GI tract: Small hiatal hernia. Normal in caliber. No sign of mass or inflammation. Normal appendix. Vasculature: Atherosclerotic calcifications of the aorta and branch vessels. Abdominal aorta is normal in caliber. Mesenteric arteries are patent. Lymph nodes: No lymphadenopathy. Peritoneum/Abdominal Wall: Scattered foci of pneumoperitoneum, possibly related to recent surgery. Extraperitoneal emphysema also present. Abdominal/pelvic superficial soft tissue thickening and emphysema, possibly related to recent surgery. Pelvis: Bladder intraluminal emphysema, possibly related to recent catheterization. Hysterectomy. Bones: No acute or suspicious lesions. IMPRESSION: 1. No definite acute findings. 2. Scattered pneumoperitoneum and extensive abdominal/pelvic wall superficial soft tissue emphysema may be related to recent surgery. Please note that all CT scans at this facility use dose modulation, iterative reconstruction, and/or weight-based dosing when appropriate to reduce radiation dose to as low as reasonably achievable. Dictated by Herbert Mendoza MD @ 02/14/2025 2:31:13 AM (Electronically Signed)
[2025-02-14 01:38] LABS: Appearance Urine Clear (Clear); Bilirubin Urine Negative (Negative); Blood Urine 1+ (Negative); Color Urine Yellow (Yellow); Glucose Urine Negative (Negative); Ketones Urine Negative (Negative); Leukocyte Esterase Urine Negative (Negative); Nitrite Urine Negative (Negative); Protein Urine Negative (Negative); Urobilinogen Urine 0.2 (0.2-1.0); pH Urine 6.5 (5.0-8.5)
[2025-02-14 01:50] LABS: RBC Urine 0-2 (0-2); WBC Urine 0-2 (0-5)
--- NOTE | 2025-02-14 03:03 | W.PM.TELEH&P ---
Telehealth- H&P: HPI History of Present Illness Date Seen: 02/14/25 Chief complaint: nausea, vomiting Narrative: Martha Brooks is seen as an Interactive Telehealth visit. Martha Brooks is a 75 year old male who Has a past medical history significant for endometrial cancer status post hysterectomy 02/12/2025, hypertension, hypercholesterolemia, who now presents to the emergency department with increasing dizziness, nausea, and emesis. Patient also notes worsening cough over the past 2 weeks. She has a history of postoperative nausea and vomiting related to general anesthesia. Prior surgeries include cholecystectomy, bilateral TKA, and ovarian cyst removal. She denies any fever or chills. She does note some abdominal tenderness/soreness from surgery 1 day prior to admission. She has noted positive flatus as well as urination postoperatively. Additionally she was kept overnight at [facility] for observation given her symptoms postoperatively. She states she was not much improved on discharge and subsequently presented to the emergency department locally after further discussion with [facility] physician. In the emergency department basic laboratory evaluation revealed normal kidney function. Elevation of LFTs. WBC count of 15 with neutrophilic shift. CTA chest abdomen pelvis did not note any acute findings of pulmonary embolism. Left chest wall superficial soft tissue emphysema as well as scattered pneumoperitoneum and superficial soft tissue emphysema was noted. Patient was given IV fluids, Ativan, IV Zofran and subsequently admitted for further management. Review of Systems Status of ROS: Reports: 10 or more systems reviewed and unremarkable except as noted in History and below [facility] Medical History (Updated 02/14/25 @ 03:14 by Courtney Whipple MD) High cholesterol ?E78.00 - Pure hypercholesterolemia, unspecified (ICD-10) Ulcer of esophagus without bleeding ?K22.10 - Ulcer of esophagus without bleeding (ICD-10) Left peroneal nerve palsy ?G57.32 - Lesion of lateral popliteal nerve, left lower limb (ICD-10) Small vessel disease, cerebrovascular ?I67.9 - Cerebrovascular disease, unspecified (ICD-10) Major depressive disorder ?F32.9 - Major depressive disorder, single episode, unspecified (ICD-10) Benign neoplasm of colon ?D12.6 - Benign neoplasm of colon, unspecified (ICD-10) Essential hypertension ?I10 - Essential (primary) hypertension (ICD-10) Shingles ?B02.9 - Zoster without complications (ICD-10) Kidney stones ?N20.0 - Calculus of kidney (ICD-10) Surgical History (Updated 02/14/25 @ 03:14 by Courtney Whipple MD) History of open reduction and internal fixation (ORIF) procedure (10/18/23) ?Z98.890 - Other specified postprocedural states (ICD-10) H/O lithotripsy (~2008) ?Z98.890 - Other specified postprocedural states (ICD-10) H/O dilation and curettage ?Z98.890 - Other specified postprocedural states (ICD-10) H/O esophagogastroduodenoscopy ?Z98.890 - Other specified postprocedural states (ICD-10) H/O colonoscopy ?Z98.890 - Other specified postprocedural states (ICD-10) History of cholecystectomy ?Z90.49 - Acquired absence of other specified parts of digestive tract (ICD-10) Previous section (1981) ?Z98.891 - History of uterine scar from previous surgery (ICD-10) History of medial meniscus repair of left knee (12/08/06) ?Z98.890 - Other specified postprocedural states (ICD-10) 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) ?Z96.651 - Presence of right artificial knee joint (ICD-10) Status post left knee replacement (12/30/21) ?Z96.652 - Presence of left artificial knee joint (ICD-10) Family History Mother Breast cancer Stroke Father Diabetes Cardiovascular disease Sister Osteoporosis Maternal Grandfather Alzheimers disease Brother Stroke Social History Narrative: Lives independently with in a handicap accessible house. Lifelong nonsmoker. 1-2 glasses of wine per week. FULL CODE. What is your current living situation?: I presently have a place to live Problems where you live: no known problems Problems where you live details: n/a In the past 12 months, utilities in danger of being shut off: no In past 12 months, lack of transportation kept you from medical appts, meetings, work, or getting things needed for daily living: no In the past 12 mos, have been you worried that your food would run out before you had money to buy more?: never true In the past 12 mos, the food you bought just didn't last and you didn't have money to buy more?: never true Highest level of school completed/degree received: Doctoral degree Smoking Status: Never smoker Do you use any of these nicotine containing products: None Second hand tobacco smoke exposure: No How often do you have a drink containing alcohol: 2-4 times a month How often do you have six or more drinks on one occasion: Never AUDIT-C Alcohol total score: 2 Non-prescribed substance use: denies use Caffeine: Yes (coffee) How often does anyone, including family, friends and others, physically hurt you: never How often does anyone, including family, friends and others, insult or talk down to you: never How often does anyone, including family, friends and others, threaten you with harm: never How often does anyone, including family, friends and others, scream or curse at you: never service: No Meds Home Medications and Allergies Home Medications ?Medication ?Instructions ?Recorded ?Confirmed ?Type cholecalciferol (vitamin D3) 25 25 mcg PO DAILY 06/14/22 02/13/25 History mcg (1,000 unit) tablet lisinopril 40 mg tablet 40 mg PO QDAY 06/14/22 02/13/25 History rosuvastatin 10 mg tablet 10 mg PO DAILY 06/14/22 02/13/25 History triamterene 37.5 1 tab PO DAILY 06/14/22 02/13/25 History mg-hydrochlorothiazide 25 mg tablet fluoxetine 40 mg capsule 40 mg PO DAILY 09/22/23 02/13/25 History acetaminophen 500 mg tablet 500 - 1,000 mg PO Q6H PRN 09/30/23 01/23/24 History gabapentin 100 mg capsule See Rx Instructions PO .COMPLEX 09/30/23 02/13/25 History ondansetron HCl 4 mg tablet 4 mg PO Q8H PRN 02/13/25 02/13/25 History oxycodone 5 mg tablet PO 02/13/25 History Allergies Allergy/AdvReac Type Severity Reaction Status Date / Time shellfish derived AdvReac Verified 01/23/24 09:09 Exam Narrative Exam Narrative: Physical Exam GENERAL: ?vital signs reviewed, well developed and nourished, in no distress HEENT: pupils are equal round and reactive to light, extraocular movements are grossly within normal limits and oral mucosa is moist. NECK: Supple without lymphadenopathy or thyromegaly according to nursing staff examination observation HEART: Regular rate and rhythm without any rubs, murmurs, or gallops. LUNGS: Clear to auscultation bilaterally with good air movement throughout ABDOMEN: Observation from nurse assisted exam, abdomen appears soft, appropriately TTP 2/2 recent surgery, and nondistended with Positive bowel sounds noted. EXTREMITIES: Strength and sensation is observed to be grossly within normal limits in the upper and lower extremities.? No focal strength deficit is observed. SKIN:? Ecchymosis noted on abdomen Const Vital Signs, click to edit/add: Vital Signs - 24 hr 02/13/25 19:37 02/13/25 21:49 02/13/25 22:00 Temperature 98 F Pulse Rate 76 77 Pulse Rate [Pulse Oximeter] 71 Respiratory Rate 16 Blood Pressure [Left Arm] Blood Pressure [Right Upper Arm] 166/89 H Pulse Oximetry 96 94 92 Oxygen Delivery Method Room Air 02/13/25 22:15 02/13/25 22:30 02/13/25 23:11 Temperature Pulse Rate 75 82 Pulse Rate [Pulse Oximeter] Respiratory Rate Blood Pressure [Left Arm] Blood Pressure [Right Upper Arm] Pulse Oximetry 91 80 L 95 Oxygen Delivery Method 02/13/25 23:15 02/14/25 01:44 02/14/25 01:44 Temperature 98.7 F Pulse Rate 72 Pulse Rate [Pulse Oximeter] 79 Respiratory Rate 17 17 Blood Pressure [Left Arm] 167/96 H Blood Pressure [Right Upper Arm] Pulse Oximetry 96 93 Oxygen Delivery Method Room Air Room Air Hospitalist - H&P: Result Labs Labs: Short CBC 02/13/25 Range/Units 21:33 WBC 15.04 H (4.50-11.00) K/uL Hgb 12.1 (12.0-16.0) gm/dL Hct 36.8 (33.0-51.0) % Plt Count 224 (140-440) K/uL BMP 02/13/25 21:33 Sodium 138 Potassium 3.9 Chloride 104 Carbon Dioxide 29 BUN 23 Creatinine 0.5 Glucose 125 H Calcium 8.4 Liver Function 05/08/25 Range/Units 21:33 Total Bilirubin 0.7 (0.1-1.5) mg/dL AST 105 H (12-35) U/L ALT 154 H (4-35) U/L Alkaline Phosphatase 64 (40-150) U/L Albumin 3.6 (3.3-5.0) g/dL Urine 02/14/25 Range/Units 01:30 Urine Color Yellow (Yellow) Urine Appearance Clear (Clear) Urine pH 6.5 (5.0-8.5) Ur Specific [place] 1.010 (1.000-1.030) Urine Protein Negative (Negative) Urine Glucose (UA) Negative (Negative) Imaging CT scan - abdomen: Radiologist's impression: 1. No definite acute findings. 2. Scattered pneumoperitoneum and extensive abdominal/pelvic wall superficial soft tissue emphysema may be related to recent surgery. CT scan - chest: Radiologist's impression: 1. No definite acute findings. Specifically, no evidence of pulmonary embolism. 2. Extensive left chest wall superficial soft tissue emphysema may be related to recent surgery. Assessment and Plan Assessment and plan (1) Peripheral neuropathy: Status: Acute (2) H/O: hysterectomy: Status: Acute (3) Post-operative complication: Status: Acute (4) Dizziness: Status: Acute (5) Hypertension: Status: Acute (6) High cholesterol: Problem comment: Continue rosuvastatin. Status: Acute Plan 75 year old male who Has a past medical history significant for endometrial cancer status post hysterectomy 02/12/2025, hypertension, hypercholesterolemia, who now presents to the emergency department with increasing dizziness, nausea, and emesis and worsening cough over the past 2 weeks. Suspect (PONV) postoperative nausea vomiting in the setting of general anesthesia Place scopolamine patch Continue with IV fluid hydration IV Zofran 4 mg every 4 as needed Cough in the setting of recent surgery Incentive spirometery every hour while awake Initiate ceftriaxone and azithromycin Follow-up UA POD #2 hysterectomy CTA chest abdomen pelvis with noted pneumoperitoneum and emphysema likely related to recent surgery, if worsening signs or symptoms would consult general surgery Encourage ambulation Pain control Hypertension Hold diuretics Resume lisinopril in the a.m. Hypercholesterolemia Resume home statin Total Time Spent Total Time Spent: 65 minutes Telehealth: Statement Statement Telehealth Visit: Today's History and Physical is provided via interactive telehealth by Courtney Whipple MD.? Patient is located at [facility].? Provider is located at [facility].? Nursing staff assisted with the patient's exam. The visit being done today meets criteria for a telehealth visit and the patient or patient?s parent/guardian is aware the visit is a telehealth visit. Camera Start Time: 03:16 Camera End Time: 03:49
[2025-02-14] MEDS: 0.9 % SODIUM CHLORIDE 1000 ml 1,000 ML 75 ML IV ×2 (04:17→17:31)
[2025-02-14] MEDS: ACETAMINOPHEN INJ 1,000 MG/100 ML VIAL 400 MG IVPB (04:18)
[2025-02-14] MEDS: SCOPOLAMINE 1 MG/3 DAY PATCH 1 PATCH TRANSDERMA (04:25)
[2025-02-14] MEDS: cefTRIAXone 2 GM in 0.9 % SODIUM CHLORIDE Mini-bag 100 ML IVPB (04:57)
[2025-02-14] MEDS: AZITHROMYCIN 500 MG in 0.9 % SODIUM CHLORIDE 250 ml 250 ML 255 MG IVPB (05:30)
--- NOTE | 2025-02-14 06:49 | PC.NURSE ---
Shift note ([id number]): Patient admitted from ED at 0145. Pleasant, alert and oriented. Ambulated with walker, gait belt and assist of one. Per Pt?uses cane at baseline. Pt did report having some dizziness when sitting up on side of bed. Educated to call for nurse when needing to use bathroom or get up. Reported tolerating pain rated 3/10 at abdominal surgical site. ?
--- NOTE | 2025-02-14 07:47 | P.IMPN_ITS ---
Assessment and Plan Assessment and plan (1) Post-operative complication: Problem comment: nonspecific; potentially slow clearing from anesthesia and OR time -patient does have an elevated WBC count and elevated LFTs. This could be from surgery. There could be an infection. CT scan was unremarkable. 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 If she fevers or white count is up trending it would be best to discuss this with Dr. Rasmussen the team at [facility]. Consider transfer. -no evidence of cardiac ischemia, heart failure, neuro event, dehydration, anemia. -likely continue observation for 24 more hours and discharged Status: Acute (2) Dizziness: Problem comment: -not vertigo. no nystagmus or positional effect. -more of an unsteady gait and lightheadedness. -continue PT/OT, scopolamine. IV fluids. -patient had a cough for a week prior to surgery; admitting doc started azithro and ceftriaxone for possible CAP or aspiration -CT chest clear; will stop antibiotics Status: Acute (3) Endometrial cancer, grade I: Problem comment: dx December 2024; surgery February [address] [facility] [address] Rasmussen Status: Acute (4) History of hysterectomy for cancer: Problem comment: C. Endometrium, polypectomy: Endometrioid adenocarcinoma, FIGO grade 1, arising in a background of complex atypical hyperplasia. 02/12/2025 ROBOTIC-ASSISTED HYSTERECTOMY TOTAL ABDOMINAL., LYMPHADENECTOMY SENTINEL PELVIC. Abigail Rasmussen M.D.Warring, Simrit K, M.D., M.S. Status: Acute (5) Major depressive disorder: Problem comment: fluoxetine 40 Status: Acute (6) Hypertension: Problem comment: maxzide daily lisinopril 40 Status: Acute (7) Peripheral neuropathy: Problem comment: Left leg weakness chronically gabapentin Status: Acute Subjective Date Seen: 02/14/25 Interval history: Daily Progress Note - Hospital Medicine Day #: 1 CC: Acute nausea, dizziness, postoperatively POD: 2 (robotic hysterectomy with sentinel node bx - [facility] 02/12/25) 24 HOUR UPDATE: Since arriving on the floor early this morning patient is modestly improved. She is tolerating clear diet. She is using her walker with 1 assist. I appreciate the PT evaluation. No nystagmus, no positional changes. This is not acute vertigo. A scopolamine patch was placed in the ED. Review of [facility] chart and I spoke with the BUSINESS SYSTEMS ADMINISTRATOR-[facility]C fellow during rounds this morning. She underwent surgery in December to remove an ovarian cyst, during which her ovaries and fallopian tubes were also removed. A polyp in her uterus tested positive for cancer, leading to a diagnosis of endometrial cancer. She is scheduled for a hysterectomy on February 12, following her 75th birthday celebrations, including a trip to [facility]. She has experienced some patchy bleeding since her last surgery, which she attributes to her endometrial cancer diagnosis. Notable Labs, Micro, Rads, Interventions: CBC was notable for it initially a white blood cell count of 15 last night, 12.7 this morning. Hemoglobin has dropped to 11.2 which is likely dilutional. Mildly alkalotic. Basic electrolytes and renal function are normal. AST/ALT were elevated last night and less so this morning. GGT 66. Troponin negative. CRP 4.5. Normal procalcitonin, normal TSH. UA normal C. Endometrium, polypectomy: Endometrioid adenocarcinoma, FIGO grade 1, arising in a background of complex atypical hyperplasia. Imaging reviewed. Objective: Vitals: see above Lungs: Clear. Cardiac: S1S2. Neuro exam: No acute findings. No nystagmus. Generalized weakness if antalgic gait. Disposition/Potential discharge - Likely home in the next 24-48 hours Today I spent 50minutes seeing the patient, reviewing [facility] and [facility] notes/diagnostics, discussing the care plan with our care time that includes social work, PT/OT, pharmacy, RT, long term and documenting my impressions and plan in the medical record. PMH: HTN, HLD, pernicious anemia, depression, multiple sclerosis, ulcer of esophagus w/o bleeding, arthritis, hyperplastic polyp colon, left peroneal nerve palsy, lumbosacral radiculopathy, small vessel disease cerebrovascular, GERD, B12 deficiency, kidney stone, cataract, history of falling, initial anesthesia complication. ASSESSMENT / PLAN #1 Preoperative exam - This patient is medically optimized for the above-mentioned procedure. - She is capable of achieving greater than 4 METS without cardiopulmonary symptoms. - Advised no aspirin-containing products 7 days prior to procedure. - Follow-up as needed. #2 Infection Wound Postoperative Initial Patient reports draining of fluid at umbilical region since last surgery. Upon physical examination noted slight purulent discharge, no odor noted, patient denies pain at the site currently, will go ahead and swab for culture. - Bacterial Culture, Aerobic + Susceptibility - cephalexin (Keflex) 500 mg capsule; Take 1 capsule (500 mg total) by mouth 2 (two) times a day for 7 days., Starting Mon01/21/2025, Until Mon01/28/2025, Normal Provider:Milena Rebolledo, PhD, LP (Psychology) Date of Service: 01/17/2025 Individuals Present: patient Outpatient Individual Therapy DIAGNOSIS: Major Depression, MARILY Exam Const: Vital Signs, click to edit/add: Vital Signs - 24 hr 02/13/25 19:37 02/13/25 21:49 02/13/25 22:00 Temperature 98 F Pulse Rate 76 77 Pulse Rate [Pulse Oximeter] 71 Respiratory Rate 16 Blood Pressure [Le ft Arm] Blood Pressure [Ri ght Upper Arm] 166/89 H Pulse Oximetry 96 94 92 Oxygen Delivery Me thod Room Air 02/13/25 22:15 02/13/25 22:30 02/13/25 23:11 Temperature Pulse Rate 75 82 Pulse Rate [Pulse Oximeter] Respiratory Rate Blood Pressure [Le ft Arm] Blood Pressure [Ri ght Upper Arm] Pulse Oximetry 91 80 L 95 Oxygen Delivery Me thod 02/13/25 23:15 02/14/25 01:44 02/14/25 01:44 Temperature 98.7 F Pulse Rate 72 Pulse Rate [Pulse Oximeter] 79 Respiratory Rate 17 17 Blood Pressure [Le ft Arm] 167/96 H Blood Pressure [Ri ght Upper Arm] Pulse Oximetry 96 93 Oxygen Delivery Me thod Room Air Room Air Labs Labs: Laboratory Results - last 24 hr 02/13/25 02/13/25 02/14/25 21:30 21:33 01:30 WBC 15.04 H RBC 4.03 Hgb 12.1 Hct 36.8 MCV 91 MCH 30 MCHC 33 RDW Coeff of Vilma 12.9 Plt Count 224 Neut % (Auto) 85.1 H Lymph % (Auto) 7.4 L [place] % (Auto) 6.6 Eos % (Auto) 0.6 Baso % (Auto) 0.1 Neut # (Auto) 12.80 H Lymph # (Auto) 1.10 [place] # (Auto) 1.00 H Eos # (Auto) 0.10 Baso # (Auto) 0.00 Abs Immat Gran (auto) 0.00 Imm/Tot Granulo (auto) 0.2 Sodium 138 Potassium 3.9 Chloride 104 Carbon Dioxide 29 Anion Gap 5 L BUN 23 Creatinine 0.5 Estimated Creat Clear 45.50 Estimated GFR 98 Glucose 125 H Calcium 8.4 Total Bilirubin 0.7 AST 105 H ALT 154 H Alkaline Phosphatase 64 Total Protein 6.7 Albumin 3.6 Urine Color Yellow Urine Appearance Clear Urine pH 6.5 Ur Specific [place] 1.010 Urine Protein Negative Urine Glucose (UA) Negative Urine Ketones Negative Urine Blood 1+ A Urine Nitrite Negative Urine Bilirubin Negative Urine Urobilinogen 0.2 Ur Leukocyte Esterase Negative Urine RBC 0-2 Urine WBC 0-2 Ur Squamous Epith Cells None Urine Bacteria None SARS-CoV-2 (PCR) Negative SARS-CoV-2 Influenza Type A (PCR) Negative PCR FLU A Influenza Type B (PCR) Negative PCR FLU B RSV (PCR) Negative PCR RSV
[2025-02-14 08:34] LABS: HCO3 VBG 27 mmol/L (21-28); PCO2 VBG 35 mmHG (40-50); PO2 VBG 57.4 mmHG (25-47); pH VBG 7.501 (7.32-7.43)
[2025-02-14 08:51] LABS: Chloride* 107 mmol/L (96-114)
[2025-02-14 08:52] LABS: Albumin* 3.4 g/dL (3.3-5.0); Potassium* 4.1 mmol/L (3.6-5.1); Sodium* 139 mmol/L (135-149)
[2025-02-14 08:55] LABS: Alanine Aminotransferase* 121 U/L (4-35); Alkaline Phosphatase* 54 U/L (40-150); Anion Gap 7 mEq/L (7-15); Aspartate Amino Transferase* 72 U/L (12-35); Bilirubin Direct* 0.4 mg/dL (0.0-0.5); Bilirubin Total* 0.6 mg/dL (0.1-1.5); Blood Urea Nitrogen* 17 mg/dL (7-30); Calcium* 8.2 mg/dL (8.4-10.6); Carbon Dioxide* 25 mmol/L (20-32); Creatinine* 0.5 mg/dL (0.5-1.5); Est. Creatinine Clearance* 41.97; Estimated Glomerular Filt Rate 98 ml/min; Gamma Glutamyl Transpeptidase* 66 U/L (8-55); Glucose* 98 mg/dL (60-115); Lipase* 35 U/L (23-300); Phosphorus* 2.9 mg/dL (2.5-4.5); Total Protein* 6.4 g/dL (6.0-8.3)
[2025-02-14 08:58] LABS: C Reactive Protein* 4.5 mg/dL (0.5-1.0)
[2025-02-14] MEDS: SODIUM CHLORIDE 0.9 % (FLUSH) 10 ML SYRINGE 5 ML IVF ×2 (09:08→20:03)
[2025-02-14 09:09] LABS: Basophils Percent Auto 0.2 % (0.0-3.0); Eosinophils Percent Auto 2.4 % (0.0-7.0); Hematocrit 34.3 % (33.0-51.0); Hemoglobin* 11.2 gm/dL (12.0-16.0); Immature Granulocytes Pct Auto 0.2 %; Lymphocytes Percent Auto 10.5 % (20-44); Mean Corpuscular HGB Conc 33 gm/dL (32-36); Mean Corpuscular Hemoglobin 30 pg (26-34); Mean Corpuscular Volume 92 fL (80-100); Monocytes Percent Auto 8.4 % (0.0-11.0); Neutrophils Percent Auto 78.3 % (42.0-72.0); Platelet Count* 221 K/uL (140-440); Red Blood Count 3.74 m/uL (4.00-5.20); Troponin I* < 0.01 ng/mL (0.01-0.04)
[2025-02-14] MEDS: lisinopriL 20 MG TABLET 40 MG PO (09:09)
[2025-02-14] MEDS: FLUOXETINE HCL 20 MG CAPSULE 40 MG PO (09:09)
[2025-02-14] MEDS: ROSUVASTATIN CALCIUM 10 MG TABLET PO (09:09)
[2025-02-14 09:10] LABS: Slide Review Reflex No
[2025-02-14 09:12] LABS: Procalcitonin* 0.06 ng/mL (<0.50)
[2025-02-14] MEDS: ACETAMINOPHEN 325 MG TABLET PO (15:57)
--- NOTE | 2025-02-14 18:37 | PC.NURSE ---
Pt is doing well today. VSS. Afebrile. Abdominal pain was minimum and controlled with PRN Tylenol. Nausea has subsided; tolerating regular diet well. Dizziness has improved, however is still present while walking. Pt has been sitting up in her chair and walking in her room frequently and tolerating that activity well.
[2025-02-14] MEDS: GABAPENTIN 100 MG CAPSULE 200 MG PO (20:03)
[2025-02-15 02:49] VITALS: BP 153/80; PULSE 74; RESP 16; TEMP 36.9; O2SAT 91
[2025-02-15] MEDS: ACETAMINOPHEN 325 MG TABLET PO (06:13)
[2025-02-15] MEDS: AZITHROMYCIN 250 MG TABLET 500 MG PO (06:14)
[2025-02-15 06:23] LABS: HCO3 VBG 29 mmol/L (21-28); PCO2 VBG 44 mmHG (40-50); PO2 VBG 43.4 mmHG (25-47); pH VBG 7.429 (7.32-7.43)
[2025-02-15 06:27] LABS: Basophils Percent Auto 0.2 % (0.0-3.0); Eosinophils Percent Auto 5.3 % (0.0-7.0); Hematocrit 34.4 % (33.0-51.0); Hemoglobin* 11.2 gm/dL (12.0-16.0); Immature Granulocytes Pct Auto 0.5 %; Mean Corpuscular HGB Conc 33 gm/dL (32-36); Mean Corpuscular Hemoglobin 30 pg (26-34); Mean Corpuscular Volume 93 fL (80-100); Monocytes Percent Auto 9.1 % (0.0-11.0); Neutrophils Percent Auto 69.9 % (42.0-72.0); Platelet Count* 220 K/uL (140-440); RDW Coefficient of Variation % 13.1 % (11.5-15.5); Red Blood Count 3.72 m/uL (4.00-5.20); White Blood Count* 11.72 K/uL (4.50-11.00)
[2025-02-15 06:33] LABS: Slide Review Reflex No
[2025-02-15 06:42] LABS: Albumin* 3.1 g/dL (3.3-5.0); Chloride* 106 mmol/L (96-114); Potassium* 3.4 mmol/L (3.6-5.1); Sodium* 139 mmol/L (135-149)
[2025-02-15 06:44] LABS: Blood Urea Nitrogen* 14 mg/dL (7-30); Creatinine* 0.5 mg/dL (0.5-1.5); Est. Creatinine Clearance* 41.97; Estimated Glomerular Filt Rate 98 ml/min
[2025-02-15 06:45] LABS: Alanine Aminotransferase* 84 U/L (4-35); Alkaline Phosphatase* 68 U/L (40-150); Anion Gap 5 mEq/L (7-15); Aspartate Amino Transferase* 36 U/L (12-35); Bilirubin Direct* 0.3 mg/dL (0.0-0.5); Bilirubin Total* 0.5 mg/dL (0.1-1.5); Calcium* 8.1 mg/dL (8.4-10.6); Carbon Dioxide* 28 mmol/L (20-32); Glucose* 87 mg/dL (60-115); Phosphorus* 3.2 mg/dL (2.5-4.5); Total Protein* 5.9 g/dL (6.0-8.3)
--- NOTE | 2025-02-15 06:46 | PC.NURSE ---
End of shift report [id number]: VSS. Afebrile. Rates pain from a 7-0, prn pain meds offered and given. Denies dizziness. Ambulates SBA with walker. Abdomen lap sites are well approximated and C/D/I. Tolerating regular diet. Pt continues to have intermittent nonproductive cough. Pt went on walk in hallway this shift with , tolerated well. ?
[2025-02-15 07:25] VITALS: PULSE 70
[2025-02-15 07:30] VITALS: BP 146/89; PULSE 90; RESP 16; TEMP 36.9; O2SAT 92
--- NOTE | 2025-02-15 07:38 | PC.NURSE ---
Patient refused to sign BARRERA form. She went from IN patient to Out patient and was not happy about it and refused to sign form.
--- NOTE | 2025-02-15 09:02 | P.DS_ITS ---
DS: Providers Provider Time Seen by Provider: 08:32 Date Seen: 02/15/25 Date of admission: 02/14/25 12:18 Primary care physician: Wandy Sterling MD Admitting Clinician: Courtney Whipple MD Consults: 02/14/25 04:11 Consult to Physical Therapy [CONS] Routine Comment: Reason(s) for PT Consult:: Evaluate and Treat Any Restrictions?:: No Restrictions Attending Physician on discharge: Erum Urias MD Date of Discharge: 02/15/25 DS: Diagnosis Discharge Diagnosis (1) Post-operative complication: Status: Acute Problem details: nonspecific; potentially slow clearing from anesthesia and OR time -patient does have an elevated WBC count and elevated LFTs. This could be from surgery. There could be an infection. CT scan was unremarkable. 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 If she fevers or white count is up trending it would be best to discuss this with Dr. Rasmussen the team at [facility]. Consider transfer. -no evidence of cardiac ischemia, heart failure, neuro event, dehydration, anemia. -likely continue observation for 24 more hours and discharged - 02/15 WBC and LFT are improving. Dizziness, nausea and emesis have resolved. D/c home. (2) Dizziness: Status: Resolved Problem details: -not vertigo. no nystagmus or positional effect. -more of an unsteady gait and lightheadedness. -continue PT/OT, scopolamine. IV fluids. -patient had a cough for a week prior to surgery; admitting doc started azithro and ceftriaxone for possible CAP or aspiration -CT chest clear; will stop antibiotics - 02/15 suspect this was post op/anesthesia related (3) Endometrial cancer, grade I: Status: Acute Problem details: dx December 2024; surgery February [address] [facility] [address] Rasmussen (4) History of hysterectomy for cancer: Status: Acute Problem details: C. Endometrium, polypectomy: Endometrioid adenocarcinoma, FIGO grade 1, arising in a background of complex atypical hyperplasia. 02/12/2025 ROBOTIC-ASSISTED HYSTERECTOMY TOTAL ABDOMINAL., LYMPHADENECTOMY SENTINEL PELVIC. Abigail Rasmussen M.D.Warring, Simrit K, M.D., M.S. (5) Major depressive disorder: Status: Chronic Problem details: fluoxetine 40 (6) Hypertension: Status: Chronic Problem details: maxzide daily lisinopril 40 (7) Peripheral neuropathy: Status: Chronic Problem details: Left leg weakness chronically gabapentin (8) Post-nasal drainage: Status: Acute Problem details: - suspect this is causing night time cough - suspect this may be due to seasonal allergies vs sinusitis vs bronchitis - complete course of azithromycin, starting mucinex, flonase, danielle. F/u with PCP this week if not better. (9) Hypokalemia: Status: Acute Problem details: - mild, asymptomatic - replace orally prior to discharge DS: Summary Hospital Course Hospital Course: This is a 75-year-old female with hypertension and hypercholesterolemia who was recently diagnosed with endometrial cancer for which she is status post hysterectomy 02/12/2025 and was admitted to the emergency department on 02/13/2025 for concerns of dizziness, nausea, and emesis that had been going on since surgery. Martha notes that she had nasal congestion, chest congestion, and nighttime cough that started around January 27, 2025 and has lingered since then. Other family members who are at the [facility] on that day also had similar symptoms. She has not had any fevers, chills, shortness of breath, or chest pain. She does not recall any history of seasonal allergies. She let the anesthesiologist know about this lingering illness prior to general anesthesia on 02/12/2025. With regards to dizziness, nausea, and emesis, these have been improving she was able to eat several meals yesterday without problem. Overnight her main concern is that she was coughing more and felt like her cold was coming back. She had been using NyQuil and DayQuil daily prior to her surgery, but has not had any since then. She is feeling much better now sitting up in the chair, her symptoms that brought her in have resolved and her cough f rom last night has gotten much better since sitting up as well. She desires discharge home. Time Spent with Patient Time attestation: Total time spent providing and/or coordinating discharge services: Today I spent 40 minutes seeing the patient, completing the discharge, reviewing Expanse and EPIC notes/diagnostics/labs, discussing the care plan with our care team that includes social work, PT/OT, pharmacy, RT, jail and documenting my impressions and plan in the medical record. Exam Narrative: Exam Narrative: General: No acute distress. Awake, alert, oriented x3. Talkative. No pallor. No jaundice. HEENT: No nystagmus. Face is nontender to palpation. Oropharynx clear. Mucous membranes moist. Cardiovascular: Regular rate and rhythm. No murmurs, gallops, or rubs. Respiratory: Clear to auscultation bilaterally. No wheezes or crackles. Abdomen: Bowel sounds present. Laparoscopic surgical wounds are clean, dry, and intact. Large area of ecchymosis without hematoma over right abdomen surrounding surgical site. Soft, nondistended, nontender. Extremities: No lower extremity edema. Const: Vital Signs, click to edit/add: Vital Signs - 24 hr 02/14/25 11:00 02/14/25 15:00 02/14/25 15:00 Temperature 98.0 F 99.1 F Pulse Rate Pulse Rate [Pulse Oximeter] 64 64 64 Respiratory Rate 18 18 18 Blood Pressure [Le ft Arm] 146/84 H 142/82 H Pulse Oximetry 95 94 Oxygen Delivery Tx thod Room Air Room Air 02/14/25 15:00 02/14/25 15:57 02/14/25 19:00 Temperature 99.1 F 99.4 F Pulse Rate 64 Pulse Rate [Pulse Oximeter] 72 Respiratory Rate 18 Blood Pressure [Le ft Arm] 147/78 H Pulse Oximetry [address] [facility] 02/14/25 22:19 02/14/25 23:00 02/14/25 23:00 Temperature 99 F Pulse Rate 70 Pulse Rate [Pulse Oximeter] 69 69 Respiratory Rate 16 16 Blood Pressure [Le ft Arm] 123/93 H Pulse Oximetry [address] 02/15/25 02:49 02/15/25 07:25 02/15/25 07:30 Temperature 98.4 F 98.5 F Pulse Rate 70 Pulse Rate [Pulse Oximeter] 74 90 Respiratory Rate 16 16 Blood Pressure [Le ft Arm] 153/80 H 146/89 H Pulse Oximetry [address] [facility] Room Air 02/15/25 07:30 Temperature Pulse Rate Pulse Rate [Pulse Oximeter] 90 Respiratory Rate 16 Blood Pressure [Le ft Arm] Pulse Oximetry Oxygen Delivery Tx thod DS: Data Data Completed and Pending Completed studies during hospitalization: 02/13/2025 EKG: Sinus rhythm with marked sinus arrhythmia, 75 beats per minute. Nonspecific ST abnormality. Ordering Physician: Geri Chen M.D. Date of Service: 02/13/25 Procedure(s): XR chest 1V portable Accession Number(s): [id number] cc: Geri Chen M.D.; Wandy Sterling M.D.~ For Patients: As a result of the Cures Act, medical imaging exams and procedure reports are released immediately into your electronic medical record. You may view this report before your referring provider. If you have questions, please contact your health care provider. INDICATION: Chest congestion. TECHNIQUE: Chest 1 views. COMPARISON: None. FINDINGS: Cardiovascular and mediastinum: Heart size and vasculature are normal in caliber and appearance. Lungs and pleural spaces: Left basilar atelectasis. No sign of infiltrate or mass. No sign of pleural effusion. No pneumothorax. Bones and soft tissues: No significant findings. IMPRESSION: Left basilar atelectasis. No acute or significant findings. Dictated by Sánchez Lanier MD @ 02/13/2025 10:00:37 PM (Electronically Signed) Ordering Physician: Geri Chen M.D. Date of Service: 02/13/25 Procedure(s): CT head/brain wo con Accession Number(s): [id number] cc: Geri Chen M.D.; Wandy Sterling M.D.~ For Patients: As a result of the Cures Act, medical imaging exams and procedure reports are released immediately into your electronic medical record. You may view this report before your referring provider. If you have questions, please contact your health care provider. Indication: Vertigo Technique: Noncontrast CT through the head with multiplanar reformats Comparison: CT head performed 03/08/2019 Findings: Brain: No acute hemorrhage. No acute infarct. No significant mass effect or midline shift. No gross evidence of a mass lesion or cerebral edema. Mild chronic microvascular ischemic disease. Ventricles: No acute abnormality appreciated. Orbits, sinuses, mastoids: No acute abnormality appreciated. Mild sinus disease. Calvarium and soft tissues: No acute abnormality appreciated. Impression: No acute abnormality appreciated. Please note that all CT scans at this facility use dose modulation, iterative reconstruction, and/or weight-based dosing when appropriate to reduce radiation dose to as low as reasonably achievable. Dictated by Regulo Ferrer MD @ 02/13/2025 10:33:22 PM (Electronically Signed) Ordering Physician: Geri Chen M.D. Date of Service: 02/14/25 Procedure(s): CT abdomen pelvis w con Accession Number(s): [id number] cc: Geri Chen M.D.; Wandy Sterling M.D.~ For Patients: As a result of the Century Cures Act, medical imaging exams and procedure reports are released immediately into your electronic medical record. You may view this report before your referring provider. If you have questions, please contact your health care provider. INDICATION: Elevated LFTs, hysterectomy 02/13/2025, nausea. TECHNIQUE: CT abdomen and pelvis acquired with 70 cc of Isovue 370 IV contrast. COMPARISON: 08/16/2023. FINDINGS: Lower chest: Unremarkable. Liver: Unremarkable. Normal in size and attenuation. No suspicious masses. Gallbladder and bile ducts: Cholecystectomy. No biliary dilatation. Pancreas: Unremarkable. No mass or inflammation. Spleen: Unremarkable. Normal in size. No masses. Adrenal glands: Unremarkable. No nodules. Kidneys: Unremarkable. No suspicious masses, stones, or hydronephrosis. GI tract: Small hiatal hernia. Normal in caliber. No sign of mass or inflammation. Normal appendix. Vasculature: Atherosclerotic calcifications of the aorta and branch vessels. Abdominal aorta is normal in caliber. Mesenteric arteries are patent. Lymph nodes: No lymphadenopathy. Peritoneum/Abdominal Wall: Scattered foci of pneumoperitoneum, possibly related to recent surgery. Extraperitoneal emphysema also present. Abdominal/pelvic superficial soft tissue thickening and emphysema, possibly related to recent surgery. Pelvis: Bladder intraluminal emphysema, possibly related to recent catheterization. Hysterectomy. Bones: No acute or suspicious lesions. IMPRESSION: 1. No definite acute findings. 2. Scattered pneumoperitoneum and extensive abdominal/pelvic wall superficial soft tissue emphysema may be related to recent surgery. Please note that all CT scans at this facility use dose modulation, iterative reconstruction, and/or weight-based dosing when appropriate to reduce radiation dose to as low as reasonably achievable. Dictated by Herbert Mendoza MD @ 02/14/2025 2:31:13 AM (Electronically Signed) Ordering Physician: Geri Chen M.D. Date of Service: 02/14/25 Procedure(s): CT angio chest PE protocol Accession Number(s): [id number] cc: Geri Chen M.D.; Wandy Sterling M.D.~ ADDENDUM INDICATION: Clinical suspicion for PE, elevated LFTs. TECHNIQUE: CT chest PE was acquired with 100 cc Omnipaque 350 IV contrast. COMPARISON: None. FINDINGS: Heart and vasculature: Contrast opacification of the pulmonary arterial tree is adequate. No sign of pulmonary embolism. Heart size is normal. Thoracic aorta and pulmonary artery are normal in caliber. Coronary artery calcifications. Atherosclerotic calcifications of the aorta. Lungs and pleura: No overtly suspicious nodular or definite acute infiltrate. Mild subsegmental atelectasis and/or scarring. No pleural effusions, pleural thickening, or pneumothorax. Lymph nodes/mediastinum: No pathologic mediastinal, hilar, or axillary adenopathy. Chest wall: No masses. Extensive left chest wall emphysema, possibly related to recent surgery. Upper abdomen: No acute or significant findings. Small hiatal hernia. Bones: No acute or suspicious lesions. IMPRESSION: 1. No definite acute findings. Specifically, no evidence of pulmonary embolism. 2. Extensive left chest wall superficial soft tissue emphysema may be related to recent surgery. Please note that all CT scans at this facility use dose modulation, iterative reconstruction, and/or weight-based dosing when appropriate to reduce radiation dose to as low as reasonably achievable. Dictated by Herbert Mendoza MD @ 02/14/2025 2:20:37 AM ----- ADDENDUM ----- Technique correction: 95 cc of Isovue 370 administered intravenously. Dictated by Herbert Mendoza MD @ Feb 14 2025 2:21AM (Electronically Signed) For Patients: As a result of the Century Cures Act, medical imaging exams and procedure reports are released immediately into your electronic medical record. You may view this report before your referring provider. If you have questions, please contact your health care provider. INDICATION: Clinical suspicion for PE, elevated LFTs. TECHNIQUE: CT chest PE was acquired with 100 cc Omnipaque 350 IV contrast. COMPARISON: None. FINDINGS: Heart and vasculature: Contrast opacification of the pulmonary arterial tree is adequate. No sign of pulmonary embolism. Heart size is normal. Thoracic aorta and pulmonary artery are normal in caliber. Coronary artery calcifications. Atherosclerotic calcifications of the aorta. Lungs and pleura: No overtly suspicious nodular or definite acute infiltrate. Mild subsegmental atelectasis and/or scarring. No pleural effusions, pleural thickening, or pneumothorax. Lymph nodes/mediastinum: No pathologic mediastinal, hilar, or axillary adenopathy. Chest wall: No masses. Extensive left chest wall emphysema, possibly related to recent surgery. Upper abdomen: No acute or significant findings. Small hiatal hernia. Bones: No acute or suspicious lesions. IMPRESSION: 1. No definite acute findings. Specifically, no evidence of pulmonary embolism. 2. Extensive left chest wall superficial soft tissue emphysema may be related to recent surgery. Please note that all CT scans at this facility use dose modulation, iterative reconstruction, and/or weight-based dosing when appropriate to reduce radiation dose to as low as reasonably achievable. Dictated by Herbert Mendoza MD @ 02/14/2025 2:20:37 AM (Electronically Signed) Labs on day of discharge: Labs from last 24 hours 02/15/25 02/14/25 06:08 08:25 WBC 11.72 H 12.70 H RBC 3.72 L 3.74 L Hgb 11.2 L 11.2 L Hct 34.4 34.3 MCV 93 92 MCH 30 30 MCHC 33 33 RDW Coeff of Vilma 13.1 13.0 Plt Count 220 221 Neut % (Auto) 69.9 78.3 H Lymph % (Auto) 15.0 L 10.5 L Mcdonough % (Auto) 9.1 8.4 Eos % (Auto) 5.3 2.4 Baso % (Auto) 0.2 0.2 Neut # (Auto) 8.20 H 9.90 H Lymph # (Auto) 1.80 1.30 Mcdonough # (Auto) 1.10 H 1.10 H Eos # (Auto) 0.60 H 0.30 Baso # (Auto) 0.00 0.00 Abs Immat Gran (auto) 0.10 0.00 Imm/Tot Granulo (auto) 0.5 0.2 VBG pH 7.429 VBG pCO2 44 VBG pO2 43.4 VBG HCO3 29 H Sodium 139 139 Potassium 3.4 L 4.1 Chloride 106 107 Carbon Dioxide 28 25 Anion Gap 5 L 7 BUN 14 17 Creatinine 0.5 0.5 Estimated Creat Clear 41.97 41.97 Estimated GFR 98 98 Glucose 87 98 Calcium 8.1 L 8.2 L Phosphorus 3.2 2.9 Total Bilirubin 0.5 0.6 Direct Bilirubin 0.3 0.4 GGT 66 H AST 36 H 72 H ALT 84 H 121 H Alkaline Phosphatase 68 54 Troponin I < 0.01 C-Reactive Protein 5.0 H 4.5 H Total Protein 5.9 L 6.4 Albumin 3.1 L 3.4 Lipase 35 Procalcitonin 0.06 TSH 2.130 Discharge Plan Discharge Disposition: Home, Self-Care Date of Admission: 02/14/25 12:18 Attending Provider on Discharge: Erum Urias Primary Care Provider: Wandy Sterling Condition: Improved Anticipated Discharge Date/Time: 02/15/25 09:21 Discharge Medications: New azithromycin 250 mg Tablet 250 mg PO Q24H 4 Days Qty: 4 0RF fexofenadine 180 mg Tablet 180 mg PO DAILY Qty: 14 0RF fluticasone propionate 50 mcg/actuation [place],Suspension 1 spray intranasal DAILY Qty: 16 0RF guaifenesin [Mucinex] 600 mg Tablet Extended Release 12hr 1,200 mg PO BID Qty: 10 0RF Continued cholecalciferol (vitamin D3) 25 mcg (1,000 unit) tablet 25 mcg PO DAILY rosuvastatin 10 mg tablet 10 mg PO DAILY triamterene-hydrochlorothiazid 37.5-25 mg tablet 1 tab PO DAILY lisinopril 40 mg tablet 40 mg PO DAILY fluoxetine 40 mg capsule 40 mg PO DAILY gabapentin 100 mg capsule 200 mg PO HS acetaminophen 500 mg tablet 500 - 1,000 mg PO Q6H PRN ondansetron HCl 4 mg tablet 4 mg PO Q8H PRN oxycodone 5 mg tablet 5 mg PO Q6H PRN cyanocobalamin (vitamin B-12) 1,000 mcg tablet, sublingual 1,000 mcg sublingual DAILY famotidine 10 mg tablet 10 mg PO BID PRN ibuprofen [Advil] 200 mg tablet 600 mg PO Q6H PRN sennosides-docusate sodium [2-in-1 Laxative] 8.6-50 mg tablet 1 tab-cap PO BID PRN ondansetron 4 mg tablet,disintegrating 4 mg PO Q6H PRN (Reason: nausea and vomiting) Discharge Orders: Discharge Order (Routine); Ordered 02/15/25 Ordered By: Erum Urias Additional Instructions: Take mucinex, danielle and flonase or OTC equivalents. Stop mucinex when feeling better or after 5 days, whichever comes first. You can wean off the danielle and flonase after a week or two, if symptoms return, you may restart them for the duration of the allergy season. If your respiratory symptoms have not improved, see your PCP later this week. You have been prescribed an antibiotic. Take all of it as prescribed. 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 Activity Level: No Restrictions Discharge Diet: Regular Follow Up Appointments: Wandy Sterling MD [Primary Care Provider] - Forms: Qbaka Info Instructions
[2025-02-15] MEDS: POTASSIUM BICARB 25 MEQ EFFERVESCENT TAB PO (09:29)
[2025-02-15] MEDS: ROSUVASTATIN CALCIUM 10 MG TABLET PO (09:29)
[2025-02-15] MEDS: lisinopriL 20 MG TABLET 40 MG PO (09:29)
[2025-02-15] MEDS: guaiFENesin 600 MG TAB.ER.12H 1200 MG PO (09:29)
[2025-02-15] MEDS: TRIAMTERENE-HCTZ 37.5-25 MG TB 1 TAB PO (09:30)
[2025-02-15] MEDS: FEXOFENADINE 180 MG TABLET PO (09:30)
[2025-02-15] MEDS: FLUOXETINE HCL 20 MG CAPSULE 40 MG PO (09:30)
[2025-02-15] MEDS: FLUTICASONE PROPIONATE NASAL 1 SPRAY NOSTRIL-B (09:31)
--- NOTE | 2025-02-15 10:57 | PC.NURSE ---
discharge. pt has been pleasant. no pain this am. SL is patent and was d/c intact. Denies dizziness. Ambulates SBA with walker. x5 Abdomen lap sites are well approximated and steri strips. bruising to right lower abd and flack an md is aware. Tolerating regular diet. Pt continues to have intermittent nonproductive cough. went over discharge packet with pt and . went over medications, no appt. instruction and education. she went over and signed personal belonging sheet/ tele was d/c shegot a w/c ride out with all belongings and paperwork. l
== END 2025-02-15 10:50 | disposition home or self-care (01) ==
LOC: ED 21:50 → MEDSURG 02-14 12:37
PROVIDERS: Family Medicine; Admitting Provider Internal Medicine; Emergency Provider Family Medicine; PCP Family Medicine; Visit Provider Internal Medicine
DX: T81.9XXA Unspecified complication of procedure, initial encounter (principal); Z90.710 Acquired absence of both cervix and uterus; D72.829 Elevated white blood cell count, unspecified; R74.01 Elevation of levels of liver transaminase levels; R05.9 Cough, unspecified; E87.6 Hypokalemia; E78.00 Pure hypercholesterolemia, unspecified; G62.9 Polyneuropathy, unspecified; R29.898 Other symptoms and signs involving the musculoskeletal system; R42 Dizziness and giddiness; R09.82 Postnasal drip; R09.81 Nasal congestion; C54.1 Malignant neoplasm of endometrium; I10 Essential (primary) hypertension; F32.9 Major depressive disorder, single episode, unspecified; M81.0 Age-related osteoporosis without current pathological fracture; Z98.890 Other specified postprocedural states
CPT/HCPCS: 36415; 70450; 71045; 71275; 74177; 80053; 80069; 80076; 81001; 82803; 82977; 83690; 84145; 84443; 84484; 85025; 86140; 87631; 93005; 96361; 96365; 96366; 96367; 96368; 96375; 97161; 99284; 99285; A9270; G0378; J0131; J0456; J0696; J2405; J7030; J7050; Q9967

== ENCOUNTER 2025-03-18 16:51 | Outpatient (CLI) | payer MEDICARE, BC, SELFPAY | END 2025-03-18 16:52 | disposition home or self-care (01) | LOC: AMB 03-19 14:40 | PROVIDERS: PCP Family Medicine; Visit Provider Family Medicine | DX: R07.89 Other chest pain (principal) | CPT/HCPCS: A0425; A0427 ==

== ENCOUNTER 2025-03-18 17:29 | Inpatient (IN) | payer MEDICARE, BC, SELFPAY ==
--- OUTSIDE RECORDS SUMMARY | 2025-02-12 05:54 | XMS_ITS | Encounter Summary ---
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 [address] [place] [address] Phone: tel: fax: [facility] Referral ID Status Reason Start Date Expiration Date V isits Requested Visits Authorized [id number] Authorized 02/12/2025 08/14/2026 1 1 Scheduling Instructions Postop in 6 weeks with LADLE CLEANER/PA or railroad design consultant Encounter Details Date Type Department Care Team (Latest Contact Info) Description 02/12/2025 5:54 AM CDT - 02/13/2025 11:34 AM CDT Hospital Encounter [facility], [facility], [facility], Fifth Floor [address] [place] [address] Abigail Rasmussen M.D. [address] [place] [address] Clinical Research Exam; Malignant Neoplasm Of Uterus (HCC) Discharge Disposition: Home or Self Care Social History Tobacco Use Types Packs/Day Years Used Date Smoking Tobacco: Never Passive Smoke Exposure: Never Smokeless Tobacco: Never Alcohol Use Standard Drinks/Week Comments Yes 2 (1 standard drink = 0.6 oz pur e alcohol) [facility] Utilities Answer Date Recorded In the past 12 months has th e electric, gas, oil, or water company threatened to shut off services in your home? No 02/13/2025 Humiliation, Afraid, Rape, and Kick questionnair e Answer Date Recorded Within the last year, have y ou been afraid of your partner or ex-partner? No 02/13/2025 Within the last year, have y ou been humiliated or emotionally abused in other ways by your partner or ex-partner? No Within the last year, have y ou been kicked, hit, slapped, or otherwise physically hurt by your partner or ex-partner? No 02/13/2025 Within the last year, have y ou been raped or forced to have any kind of sexual activity by your partner or ex-partner? No 02/13/2025 PHQ-2 Answer Date Recorded PHQ-2 Score 2 11/05/2024 Exercise Vital Sign Answer Date Recorde d On average, how many days pe r week do you engage in moderate to strenuous exercise (like a brisk walk)? 0 days 12/26/2024 On average, how many minutes do you engage in exercise at this level? 0 min 12/26/2024 Hunger Vital Sign Answer Date Recorded Within the past 12 months, y ou worried that your food would run out before you got the money to buy more. Never true 02/14/20 25 Within the past 12 months, t he food you bought just didn't last and you didn't have money to get more. Never true 02/13/2025 PRAPARE - Transportation Answer Date Re corded In the past 12 months, has l ack of transportation kept you from medical appointments or from getting medications? No 05/2025 In the past 12 months, has l ack of transportation kept you from meetings, work, or from getting things needed for daily living? No 02/13/2025 Nutrition Answer Date Recorded On average, how many serving s of fruits and vegetables do you eat per day (serving size is equal to 1 cup or approximately the size of a tennis ball)? 3-5 12/26/2024 Dental Answer Date Recorded Dental: Regular Dentist Yes 11/06/19 Employment Answer Date Recorded Employment status Retired 12/26/2024 Housing Stability Answer Date Recorded What is your living situation today? 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 Legal Sex Female 8:57 AM MATRIX BATH OPERATOR Gender Identity Female 10/29/2023 4:34 PM MATRIX BATH OPERATOR Sexual Orientation Straight 10/29/2023 4: 34 PM MATRIX BATH OPERATOR documented as of this encounter Last Filed Vital Signs Vital Sign Reading Time Taken Comments Blood Pressure 152/73 02/13/2025 10:55 AM CDT Pulse 76 02/13/2025 10:55 AM CDT Temperature 37 C (98.6 F) 02/13/2025 10:55 AM CDT Respiratory Rate 16 02/13/2025 10:55 AM CDT Oxygen Saturation 94% 02/13/2025 10:55 AM CDT Inhaled Oxygen Concentration - - Weight 110 kg (241 lb 10 oz) 02/12/2025 7:16 AM CDT Height 163.5 cm (5' 4.37) 02/12/2025 7:16 AM CD T Body Mass Index 41 02/12/2025 7:16 AM CDT documented in this encounter Discharge Summaries * Chely Rogers M.D., M.S. - 02/13/2025 7:00 AM CDT DISCHARGE SUMMARY BRIEF OVERVIEW Hospital: [facility] Discharge Provider: Abigail Rasmussen M.D. Primary Team: RST Gynecologic Surgery - [place] Primary Care Providers: Elsewhere, Pcp (General) No address on file Primary Care Provider Phone Number: None Primary Care Provider Fax Number: None Other Providers: none Admission Date: 02/12/2025 Discharge Date: 02/12/2025 PRINCIPAL DIAGNOSIS Malignant Neoplasm Of Uterus (HCC) SECONDARY DIAGNOSES Principal Problem: Malignant Neoplasm Of Uterus (HCC) Resolved Problems: * No resolved hospital problems. * Surgery Information This Encounter Past Procedures (02/14/2024 to Today) Date Procedures Providers Loc / Dept 02/12/2025 ROBOTIC-ASSISTED HYSTERECTOMY TOTAL ABDOMINAL., LYMPHADENECTOMY SENTINEL PELVIC. Abigail Rasmussen M.D.Warring, Simrit K, M.D., M.S. RST ROEI OR DISCHARGE DISPOSITION Home or Self Care [1] ACTIVE ISSUES REQUIRING FOLLOW UP See [facility] OUTPATIENT FOLLOW UP For appointment details refer to your Patient Appointment Guide. TEST RESULTS PENDING AT DISCHARGE Pending Labs Order Current Status [facility] Endometrial Carcinoma Panel, Next-Generation Sequencing, Tumor Collected (02/12/25 105) Mismatch Repair (MMR) Protein Immunohistochemistry Only, Tumor Collected (02/12/25 105) Cytology Non-SWITCH MAKER In process Surgical Pathology, Frozen Lab Preliminary result DETAILS OF HOSPITAL STAY REASON FOR ADMISSION Malignant Neoplasm Of Uterus (HCC) HOSPITAL COURSE DISCHARGE SUMMARY Admission Date: 02/12/2025 Discharge Date: 02/13/2025 Discharge Provider: Abigail Rasmussen M.D. Responsible Author(s): Tim Bailey M.D., M.P.H. PRIMARY DIAGNOSIS #1 Malignant Neoplasm Of Uterus (HCC) BRIEF HOSPITAL COURSE Surgeon: Abigail Rasmussen M.D. Warring, Simrit K, M.D., M.S. PROCEDURE DATE: 02/12/2025 TYPE OF PROCEDURE(S): Robotic-Assisted Total Abdominal Hysterectomy, Left [place] Pelvic Lymphadenectomy PROCEDURAL COMPLICATIONS: None POSTOPERATIVE COURSE: Uncomplicated. The patient was admitted POD#0 for postanesthesia dizziness. On POD#1 her dizziness resolved and she ambulated without difficulty. She was discharged home after meeting milestones. PATHOLOGY: Will follow-up final pathology. CYTOLOGY: Order Name Source Comment Collection Info Order Time [facility] [place] RESEARCH ORDER, B Blood, Venous PINK PINK PINK PINK PINK PINK PINK PINK PINK PINK PI: Justyn Cruz M.D. SC: Lubna Forbes R.N. IRB#: [id number] GRANADO: [id number] Study Alias: Paul Subject ID: [id number] Visit: ENROLLMENT Collection Instructions: Draw tubes provided in Kit Special Instructions: * Forward this document and samples to [facility] Anuelcole_[email or web address] * Study Collection only? YES / NO 02/12/2025 6:57 AM Region: [place] Number of tubes for this collection (30): 5 MMR PROTEIN, IHC ONLY, TUMOR Uterus Collected By: Abigail Rasmussen M.D. 02/12/2025 10:57 AM Should the communication of this result to the patient's portal be released immediately? Manual release only MAYOCOMPLETE ENDOMETRIAL PANEL Uterus Collected By: Abigail Rasmussen M.D. 02/12/2025 10:57 AM Should the communication of this result to the patient's portal be released immediately? Manual release only CYTOLOGY NON-SWITCH MAKER Pelvis Collected By: Abigail Rasmussen M.D. 02/12/2025 9:35 AM Should the communication of this result to the patient's portal be released immediately? Manual release only SURGICAL PATHOLOGY, [facility] Pelvis Collected By: Abigail Rasmussen M.D. 02/12/2025 10:13 AM Should the communication of this result to the patient's portal be released immediately? Manual release only DISMISSAL LABS: Hemoglobin: Lab Results Component Value Date HGB 14.4 11/08/2024 Creatinine: Lab Results Component Value Date CREATININE 0.66 11/08/2024 CONDITION AT DISCHARGE Stable DISCHARGE DISPOSITION Home/Self Care FOLLOW-UP RECOMMENDATIONS A postoperative appointment will be arranged with your surgical team at the [place] [address]. You will be contacted with your appointment details. Any questions regarding your appointment shouldbe directed to the development coordinator at . CONTACT INFORMATION Instructions and Contact Information for Concerns, Issues, or Problems -If you experience a medical emergency, please call your local emergency response telephone number.For other questions, call the [facility] 24-hr telephone number: . Ask to be connected to the following service: Gynecologic Surgery - Abigail Rasmussen M.D. If you experience any of the following symptoms contact your surgical team: - Fever greater than 101 Fahrenheit - Abdominal pain that persists for more than 4 hours or any severe abdominal pain - Vomiting, inability to tolerate oral intake for more than 4 hours - Inability to empty your bladder or suprapubic catheter dysfunction - Constipation that is not relieved by dismissal or over the counter medications (see below) - Incision redness, especially if associated with pus or increasing tenderness HOW TO CONTACT YOUR SURGICAL TEAM: DURING BUSINESS HOURS: From 8 a.m. to 5 p.m. Monday through Monday call AFTER HOURS, WEEKENDS OR HOLIDAYS: For urgent questions and/or concerns, call the [facility] pneumatic jack operator at and request to speak to the physician train station agent for your surgical team. NOTE TO CAREGIVERS - If the patient appears very ill or is not easy to arouse take her directly to the nearest emergency room or call 911 for emergency assistance. Do not wait to reach your surgical team. We will be happy to work with the emergency team nearest to you! INFORMATION FOR CONTINUING CARE POSTOPERATIVE RESTRICTIONS/INSTRUCTIONS: LIFTING: No lifting greater than 15 pounds for six weeks. PELVIC REST: No douching, tampons, or intercourse for six weeks. If prescribed, vaginal estrogen cream may be used during the postoperative period. DRIVING: No driving while on narcotics. Driving may be resumed initially with a competent passengerone to two weeks after surgery if no longer taking narcotics. EXERCISE: For six weeks your exercise should be limited to walking. You may walk as far as you wish, as long as you increase your level of exertion gradually and avoid slippery surfaces. You may climb stairs as needed to get around, but should not use stair climbing for exercise. VAGINAL DISCHARGE: You may develop a vaginal discharge and intermittent vaginal spotting after surgery and up to 6 weeks postoperatively. The discharge may have an odor and may change in color but itis normal. This is due to dissolving stitches. Contact your surgical team if you develop vaginal orvulvar irritation along with a discharge. Also contact your surgical team if you have vaginal discharge that smells like urine or stool. WOUND CARE: If you have a band-aid or bandage on your wound, you may remove it the day after dismissal. You may wash the wound with mild soap and water. You may shower at any time but should avoid immersing any abdominal incisions in water for at least two weeks after surgery or until the wound is completely healed. If given, please shower with Hibiclens soap until bottle is completely finished. Keep your wound clean and dry. You should observe your incision for signs of infection which includeredness, warmth, drainage or fever. CONSTIPATION REMEDIES: Patients are often constipated after surgery or with use of oral narcotic medicine. You should continue to take the stool softener, Senokot-S during the next six weeks, and consume adequate amounts of water. If you have not had a bowel movement for 3 days after dismissal, or are uncomfortable and unable to pass stool, please try one or all of the following measures: Milk of Magnesia - 30 cc by mouth every 12 hours Dulcolax suppository - One suppository per rectum every 4-6 hours Metamucil, Fibercon or other bulk former - use as directed Fleets Enema Prunes or Prune juice If you continue to have constipation after trying the above remedies, you should contact your surgical team using the contact information listed above. PAIN MEDICATIONS: Take your pain medications as instructed. It is best to take pain medications before your pain becomes severe. This will allow you to take less medication yet have better pain relief. For the first 2or 3 days it may be helpful to take your pain medications on a regular schedule (e.g. every 4 to 6 hours). This will help you to keep your pain under better control. You should then begin to take fewer medications each day until you no longer need them. Do not take pain medication on an empty stomach. This may lead to nausea and vomiting. MEDICATION DISPOSAL (Information adapted from the FDA.gov website on Safe Disposal of Medicines) Some medicines come with disposal instructions. If you received disposal instructions for a medicine, you should dispose of that medicine as directed. Proper disposal of medication keeps others safe by ensuring these medicines are not used again or accidentally ingested and avoid causing harm. Almost all medicines can be safely disposed of by using medicine take-back programs or using U.S. Drug Enforcement Agency (MARY)-authorized collectors. Otherwise, the following opioid medications can be flushed down the toilet when the medication is no longer needed: Oxycodone tablets, Hydromorphone tablets, Percocet tablets, Morphine tablets, Oxycontin tablets. If you want to locate the nearest MARY-authorized advisor consultant to you, this can be found at: https://apps.deadiversion.[place].gov/pubdispsearch/spring/main If you currently smoke cigarettes, cigars, e-cigarettes, or pipes; chew tobacco; or have done so inthe past 12 months, it is important to quit. Talk with your physician about different ways to stop smoking. For additional information about smoking cessation, go to: http://www.[facility].org/stop-smoking or call 831-286-6415. CONSULTS ORDERED DURING THIS ADMISSION IP CONSULT TO CARE MANAGEMENT CONDITION AT DISCHARGE stable Discharge instructions were provided to the patient and caregiver(s). documented in this encounter Discharge Instructions * Discharge Instructions* Adair Zarate - 02/13/2025 8:23 AM CDT You were discharged from the [facility] Gynecologic Surgery - Rasmussen Service. Please identify this service name if you call with questions after hospitalization. * Attachments The following attachments cannot be sent through Care Everywhere. * Ondansetron (By mouth, Into the mouth) (Mexican) documented in this encounter Medications at Time of Discharge acetaminophen (TylenoL) 500 mg tablet Take 2 tablets (1,000 mg total) by mouth every 6 (six) hours as needed for pain. Alternate with ibuprofen every 3 hours. Do not exceed 4000 mg or 4 g in 24 hours. 02/12/2025 cholecalciferol (VITAMIN D3) 25 mcg (1,000 Unit) capsule Take 1 capsule by mouth daily. 08/24/2012 cyanocobalamin (VITAMIN B12) 500 mcg SL tablet Dissolve 1,000 mcg in the mouth daily. famotidine (PEPCID) 10 mg tablet Take 10 mg by mouth 2 (two) times a day as needed for heartburn or indigestion. FLUoxetine (PROzac) 40 mg capsule Take 80 mg by mouth daily. 10/20/2022 gabapentin (NEURONTIN) 100 mg capsule Take 200 mg by mouth at bedtime. 09/17/2023 ibuprofen 200 mg tablet Take 3 tablets (600 mg total) by mouth every 6 (six) hours as needed for pain. Alternate with acetaminophen every 3 hours. 02/12/2025 lisinopriL (PRINIVIL,ZESTRI L) 40 mg tablet Take 40 mg by mouth daily. 10/20/2022 ondansetron (Zofran) 4 mg tabletIndication s:Malignant Neoplasm Of Uterus (HCC) Take 1 tablet (4 mg total) by mouth every 6 (six) hours as needed for nausea. 10 tablet 02/13/2025 9:57 AM CDT 02/13/2025 oxyCODONE (Roxicodone) 5 mg immediate release tabletIndication s:Acute Pain Take 1 tablet (5 mg total) by mouth every 6 (six) hours as needed for pain Indication: Acute Pain. Not relieved by over the counter pain medications. 10 tablet 02/12/2025 4:47 PM CDT 02/12/2025 rosuvastatin (CRESTOR) 10 mg tablet Take 10 mg by mouth daily. 10/20/2022 sennosides-docus ate sodium (Senokot-S) 8.6-50 mg per tablet Take 1 tablet by mouth 2 (two) times a day as needed for constipation. While on narcotics. 12/13/2024 triamterene-hydr oCHLOROthiazide (MAXZIDE-25) 37.5-25 mg per tablet Take 1 tablet by mouth every morning. 10/20/2022 documented as of this encounter Progress Notes * Chely Rogers M.D., M.S. - 02/13/2025 5:50 AM CDT Gynecologic Oncology Progress Note Admission Date: 02/12/2025 Current Date: 02/13/2025 Martha Brooks is a 75 y.o. with G1 uterine cancer who is 1 Day Post-Op Procedure(s) (LRB): ROBOTIC-ASSISTED HYSTERECTOMY TOTAL ABDOMINAL. (N/A) LYMPHADENECTOMY SENTINEL PELVIC. (Left) Subjective: Admitted for persistent postoperative dizziness that has since resolved. Void trial pending at this time. Otherwise pain well controlled, no N/V, tolerating po intake. Objective: Current Vital Signs 24h Vital Sign Ranges T 36.9 ??C Temp Av.7 ??C Min: 36.4 ??C Max: 37.1 ??C BP 145/88 BP Min: 108/75 Max: 175/82 HR 70 Pulse Av.8 Min: 68 Max: 81 RR 17 Resp Av.5 Min: 13 Max: 17 SaO2 97 % SpO2 Av.1 % Min: 87 % Max: 98 % Physical exam: General appearance: AAO Lungs: normal work of breathing Heart: regular rate and rhythm Abdomen: soft, non distended, appropriately tender postoperative Skin: robotic incisions covered with primapore, no signs of infection Current Shift I/O 24 Hour I/O Time Ins Outs 02/12 1901 - 02/13 700 In: 708.7 Out: 530 [Urine:455] 02/12 701 - 02/13 700 In: 2766 [P.O.:300] Out: 1505 [Urine:1355] Assessment & Plan: 75 y.o. who is 1 Day Post-Op Procedure(s) (LRB): ROBOTIC-ASSISTED HYSTERECTOMY TOTAL ABDOMINAL. (N/A) LYMPHADENECTOMY SENTINEL PELVIC. (Left) Hospital Problems: #1 Malignant Neoplasm Of Uterus (HCC) Patient admitted postoperative for persistent dizziness related to anesthesia. The dizziness has resolved. Void trial pending this morning. Patient is meeting postoperative milestones for discharge today. If she does not pass void trial then plan for SIC teaching. Chely Rogers M.D., M.S. SWITCH MAKER ONC Fellow Please direct questions/concerns to service pager. * Vivi Lucio PharmChavaD., R.Ph., [facility] - 02/12/2025 8:32 PM CDT Images from the original note were not included. Admission Medication History Note Adherence issues: No concerns Medication list source: Patient and Pharmacy or dispense records Prior to Admission Medications Med List Status: Pharmacy Complete Set By: Vivi Lucio PharmChavaDChava, R.Ph., BCPS at 58:30 PM Taking? Last Dose Informant Start Date End Date LT cholecalciferol (VITAMIN D3) 25 mcg (1,000 Unit) capsule 02/11/2025 -- 08/24/12 -- Take 1 capsule by mouth daily. cyanocobalamin (VITAMIN B12) 500 mcg SL tablet 02/11/2025 -- -- -- Dissolve 1,000 mcg in the mouth daily. famotidine (PEPCID) 10 mg tablet Past Month -- -- -- Take 10 mg by mouth 2 (two) times a day as needed for heartburn or indigestion. FLUoxetine (PROzac) 40 mg capsule 02/11/2025 -- 10/20/22 -- Take 80 mg by mouth daily. gabapentin (NEURONTIN) 100 mg capsule 02/11/2025 Self 09/17/23 -- Take 200 mg by mouth at bedtime. lisinopriL (PRINIVIL,ZESTRIL) 40 mg tablet 02/12/2025 at Morning Self 10/20/22 -- Take 40 mg by mouth daily. rosuvastatin (CRESTOR) 10 mg tablet 02/12/2025 at Morning -- 10/20/22 -- Take 10 mg by mouth daily. sennosides-docusate sodium (Senokot-S) 8.6-50 mg per tablet -- -- 12/13/24 -- Take 1 tablet by mouth 2 (two) times a day as needed for constipation. While on narcotics. triamterene-hydroCHLOROthiazide (MAXZIDE-25) 37.5-25 mg per tablet 02/11/2025 at Morning -- 10/20/22 -- Take 1 tablet by mouth every morning. -- -- -- -- * Tim Bailey M.D., M.P.H. - 02/12/2025 7:54 PM CDT Gynecology Progress Note SUBJECTIVE REASON FOR EVALUATION Martha Brooks is a 75 y.o. who is POD#0 from a Robotic-assisted hysterectomy and left SLN biopsy. I saw the patient on the post-op recovery floor for complaints of ongoing dizziness. She states that she is still feeling dizzy since leaving the OR, and she suspects this is related to her anesthesia exposure. She states that her dizziness is consistent with previous postoperative dizziness episodes, which also resulted in a protracted recovery phase; she has been in the postoperative phase for 6 hours without improvement. She also has a headache at this time, and she suspects it is due to caffeine withdrawal as it is consistent with this headache phenotype. She has no other acute concerns at this time. She has not ambulated. Her pain is 5/10 and is tolerable. She expresses that she does not feel safe going home due to the dizziness and requests admission overnight. OBJECTIVE VITAL SIGNS Blood Pressure: 150/86 Pulse Rate: 70 Temperature: 36.7 ??C PHYSICAL EXAM Constitutional: Patient is lying comfortably in bed and is not in acute distress. Neuro: Alert and oriented to self, location, and situation. Psych: Speech is linear and goal-directed, with normal rate and tone. Resp: Breathing comfortably on room air with appropriate O2 saturation Card: Regular rate and rhythm on monitor ASSESSMENT 75 y.o. F who is POD#0 from the above surgery with Dr. Rasmussen. She continues to have postoperative dizziness which is consistent with her previous perioperative experiences. She does not feel that she can safely ambulate at this time, and so we will admit her overnight to continue monitored recovering. Plan for void trial with catheter removal once ambulatory. I will not obtain any diagnostic studies at this time, but will order studies as clinically indicated. PLAN #1 Postoperative Dizziness -Admitted for continued monitored postoperative recovery -No labs at this time; will order as clinically indicated -Void trial with joseph removal once ambulatory Electronically signed: Tim Bailey M.D., M.P.H. PGY1 Obstetrics and Gynecology documented in this encounter H&P Notes * Chely Rogers M.D., M.S. - 02/12/2025 8:11 AM CDT SUBJECTIVE REFERRING PROVIDER Abigail Rasmussen M.D. REASON FOR VISIT Consult HISTORY OF PRESENT CONDITION Chief complaint: Endometrial Cancer Mrs. Brooks is a 75 y.o. who presents in consultation at the request of Abigail Rasmussen M.D. for an opinion regarding grade 1 endometrial cancer. The patient was followed through 2023 for a benign appearing left adnexal mass. Given the benign appearance, surgery was scheduled for time when the patient had improved mobility. On December 13, 2024 she underwent laparoscopic bilateral salpingo-oophorectomy and hysteroscopy with polypectomy. Final pathology cystadenoma of the left ovary. The endometrial polyps showed a grade 1 endometrial cancer arising in a background of hyperplasia. The patient presents today with her Conrado to discuss management. She reports that her recovery from her surgery has been unremarkable. FINAL DIAGNOSIS A. Ovary and fallopian tube, left, salpingo-oophorectomy: Ovary: Serous cystadenoma. Fallopian tube: Unremarkable fallopian tube including fimbria and complete cross-section. B. Ovary, fallopian tube and mass, right, salpingo-oophorectomy: Ovary: Endometriotic cyst with mucinous and eosinophilic metaplasia. Fallopian tube unremarkable fallopian tube including fimbria and complete cross-section C. Endometrium, polypectomy: Endometrioid adenocarcinoma, FIGO grade 1, arising in a background of complex atypical hyperplasia. Labs: 11/08/24: Hgb 14.4, PLT 205. . BMI 40.92 (12/13/24). PMH: HTN, HLD, pernicious anemia, depression, multiple sclerosis, ulcer of esophagus w/o bleeding, arthritis, hyperplastic polyp colon, left peroneal nerve palsy, lumbosacral radiculopathy, small vessel disease cerebrovascular, GERD, B12 deficiency, kidney stone, cataract, history of falling, initial anesthesia complication. PSH: Lap BSO, hysteroscopy, polypectomy, umbilical hernia repair (12/13/24). Cholecystectomy, , right wrist surgery (11/2023), bilateral knee arthroplasty (2010, 2021), lithotripsy, D&C (1997). The following portions of the patient's history were reviewed and updated as appropriate: allergies, current medications, family history, medical history, social history, surgical history and problemlist. FAMILY HISTORY Breast, ovarian, colon, or uterine cancer-related family history includes Breast cancer in her mother. REVIEW OF SYSTEMS A comprehensive review of systems was negative except as noted in HPI. OBJECTIVE VITAL SIGNS Body mass index is 41 kg/m??. ECOG status: 0 PHYSICAL EXAM 1. General: Well appearing, no apparent distress, alert and oriented. GYNSURG Exam Amb DIAGNOSTICS Hemoglobin Date Value Ref Range Status 11/08/2024 14.4 11.6 - 15.0 g/dL Final EXT Hemoglobin Date Value Ref Range Status 08/28/2023 13.9 12.0 - 16.0 g/dL Final Leukocytes Date Value Ref Range Status 11/08/2024 8.4 3.4 - 9.6 x10(9)/L Final EXT Leukocytes Date Value Ref Range Status 08/28/2023 10.0 4.5 - 11.0 thou/cu mm Final Platelet Count Date Value Ref Range Status 11/08/2024 205 157 - 371 x10(9)/L Final EXT Platelet Count Date Value Ref Range Status 08/28/2023 248 140 - 440 thou/cu mm Final Glucose, P Date Value Ref Range Status 11/08/2024 93 70 - 140 mg/dL Final Creatinine Date Value Ref Range Status 11/08/2024 0.66 0.59 - 1.04 mg/dL Final Cancer Ag 125 (CA 125), S Date Value Ref Range Status 01/09/2024 24 <46 U/mL Final Comment: ----ADDITIONAL INFORMATION---- The testing method is an electrochemiluminescence assay manufactured by [employer] and performed on the Kosta system. Values obtained with different assay methods or kits may be different and cannot be used interchangeably. Test results cannot be interpreted as absolute evidence for the presence or absence of malignant disease. Albumin, S Date Value Ref Range Status 11/10/2023 4100 3500 - 5000 mg/dL Final 11/10/2023 4.0 3.5 - 5.0 g/dL Final 11/10/2023 4.0 3.5 - 5.0 g/dL Final Hemoglobin A1c, B Date Value Ref Range Status 11/10/2023 5.8 (H) 4.0 - 5.6 % Final Comment: Hemoglobin A1c values of 5.7-6.4 percent indicate an increased risk for developing diabetes mellitus. In diabetic patients, HbA1c goals should be discussed with healthcare provider. PATHOLOGY, LAST 30 DAYS No results found for this or any previous visit (from the past 720 hours). IMAGING RESULTS, LAST 7 DAYS - IMPRESSION ONLY No results found. ASSESSMENT / PLAN Visit diagnosis: #1 Malignant Neoplasm Of Uterus (HCC) I discussed with the patient that the primary treatment for endometrial cancer is surgery. This includes a total hysterectomy and sentinel lymph node biopsies. I will plan to perform this in a laparoscopic fashion using the robot. The procedure and its risks and benefits were discussed in detail. The patient had difficulty voiding after her 12/13/24 procedure. Will leave Joseph in place and complete an active voiding trial. Surgery is scheduled for February 12, 2025. The patient has an upcoming trip for her 75th birthday and other obligations. Given that this is a FIGO grade 1 tumor arising in hyperplasia, we discussed that there is a very low risk of progression in just 8 weeks following the hysteroscopy. Immunohistochemistry (IHC) Testing We discussed that a screening test will be performed on your uterine tissue after surgery if endometrial cancer is found. This screening test is called Immunohistochemistry. It can help find out if the endometrial cancer may have been caused by an inherited gene mutation known as Allison Syndrome. Allison syndrome is a genetic condition that greatly increases a person's risk of developing certain types of cancer. Your IHC screening results will be available a few weeks after surgery. You will receive a phone call to discuss the results of this testing once your results are available. PATIENT EDUCATION Ready to learn, no apparent learning barriers were identified; learning preferences include listening. Explained diagnosis and treatment plan; patient expressed understanding of the content. INFORMED CONSENT Discussed the risks, benefits, and alternatives of the procedure and of possible blood transfusion.Discussed the necessity of other members of the healthcare team participating in the procedure. Allquestions answered and consent given. I discussed with the patient that in our practice at [facility], we sometimes perform overlapping surgeries, meaning that I will be present for the entire critical portion of the surgery, and that my team members will assist me with the noncritical portions of the procedure. BILLING I personally spent over half of a total 45 minutes in counseling and discussion with the patient and coordination of care as described above. Chely Rogers M.D., M.S. * Chely Rogers M.D., M.S. - 02/12/2025 8:11 AM CDT Day of Surgery H&P: Indications for Procedure: The patient was examined and the Pre-op diagnosis and planned procedure remain unchanged History of Present Illness: Reviewed and unchanged from the previous documentation - refer to the prior outpatient note for details. Allergies, Medications, Past Medical and Surgical History: Allergies reviewed and updated as necessary. Medical history reviewed and updated as necessary. Surgical history reviewed and updated as necessary. Medications reviewed and updated as necessary. Physical Exam: General: Alert, oriented, and not in distress HEENT: Unchanged from prior outpatient exam Heart: Unchanged from prior outpatient exam Lungs: Unchanged from prior exam. Abdomen: Unchanged from prior outpatient exam. Musculoskeletal/Extremities: Unchanged from prior outpatient exam. Neurological: Unchanged from prior outpatient exam Assessment and Plan: Plan Unchanged documented in this encounter Consult Notes * Mark Newman RMacie. 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 Services Used: No Person(s) Present During Interview: patient History of Present Illness #1 Malignant Neoplasm Of Uterus (HCC) Social History Marital Status: Family / Household: Lives with Support System: spouse, children, family members, and friends/neighbors Primary Caregiver: self Social Drivers of Health with Concerns Utilities: At Risk (12/26/2024) [facility] Utilities Threatened with loss of utilities: Yes Intimate Partner Violence: Not on file OBJECTIVE Finance/Insurance Primary insurance: MEDICARE A AND B Secondary insurance: [employer] benefits: No Advance Directives Legal Decision Maker: Self Baseline Functional Status Baseline Activities of Daily Living Mobility: Modified independent Dressing: Independent Feeding: Independent Bathing: Independent Grooming: Independent Toileting: Independent Behavior: Pleasant, Appropriate, Calm, Cooperative, Oriented Communication: Talks, Understands speaking, Understands Mexican Shopping: Independent Medication Management: Independent Housekeeping: Independent Meal Prep: Independent Assistive Devices: Cane, Tub/shower chair/bench, Grab bars - toilet, Grab bars - wall, Hand held shower, Eyeglasses, Cellphone, Blood pressure cuff Transportation: Independent to drive Managing Finances: Independent Baseline Services/Resources Primary care clinic and provider: PCP Wandy Sterling MD [address] [place] [address] Additional Resources: Additional Services: NA Anticipated Needs Functional Status: None Assistive Devices: None Anticipated Modifications to the Patient's Home: None Transportation Needs: Support from family Does the patient need discharge transport arranged?: No Phone Number for Ride/Caregiver: Con[place]ado [phone] Anticipated Discharge Destination: Home or Self Care Referrals Initiated: None assistive technology trainer provided Care Management Brochure ([id number]), information regarding the dismissal process, and the Senior Linkage Line ([place] Board on Aging) handout. ASSESSMENT / PLAN ASSESSMENT: The assistive technology trainer met with Martha Elizabeth Eliotmegan to discuss her current hospitalization and home going needs. The patient was unaccompanied. The patient was a reliable historian. The role of assistive technology trainer was reviewed. The patient reviewed her prior level of care and support system. The patient receives support from her , children, and extended family. When case management entered the room, the patient was lying in bed watching television, alert, andoriented. Upon meeting with the patient, the case management specialist introduced themselves, their role within the multidisciplinary care team, along with the purpose of today's visit. The patient verbalized understanding and was in agreement with discussions. Martha resides with spouse/significant other in a single level home and with bedroom and bathroom onsame level with level entry. Housekeeping, grocery shopping, meal prep, and other household responsibilities have previously been completed by patient and patient's . The patient states prior to this hospital stay she was independent in all daily cares, she drives and will return to doing so as able. The patient states she utilizes a cane at base line when leavingher home, but has access to a walker, and manual wheelchair if needed. The patient denies any financial concerns, or the use of any formal outside services that need to be reconnected by case management. At this time, the care team has not identified any skilled post-hospital discharge care needs that require the assistance of the Care Management Team. The patient's potential needs at dismissal based on their home setting, previous needs and responsibilities, homebound status, and relevant assessments were discussed. The patient will be safe and supported to discharge home with spouse/S.O. when medically ready. Support will be provided by her and children . assistive technology trainer recommendations include: home delivery of groceries and discussing needed assistance with family, friends, or neighbors . Pending hospital course and medical readiness, no barriers to dismissal have been identified at this time. The following hospital-based consult orders and/or referrals placed or requested: None. PLAN: The patient agrees with the following plan. Patient's Anticipated Discharge Destination: Home or Self Care Transportation upon dismissal will be provided by family-- Conrado . assistive technology trainer encouraged the patient to reach out with any questions/concerns. Care Management will sign-off. Please reconsult Care Management if any transition planning needs are identified Signed by: Mark Newman R.N. 02/13/2025 documented in this encounter Nursing Notes * Justyn Carpio R.N. - 02/13/2025 11:27 AM CDT Discharge Summary Patient discharged to home self care with . Discharge information reviewed, education provided, and questions were addressed. * Abigail Marquez M.S.N., R.N. - 02/12/2025 6:06 PM CDT Received pt from PACU- pt vitally stable. Pt with dizziness- unable to ambulate. Pt stood at side of bed x3 with 2 person assist. Sx notified- see provider orders. Plan of care ongoing. documented in this encounter OR Notes * Op Note - Abigail Rasmussen M.D. 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 Findings No mapping of sentinel lymph nodes to the right pelvic nodes. Two negative left sentinel lymph nodes Frozen showed 1.4 cm FIGO grade 1 endometrial cancer confined to the endometrium. Complications None Cancer: Endometrial. Primary surgery. Non metastatic. Method: ICG. Left lymph node: [place] Lymph Nodes. Left lymph node: External iliac. Right lymph node: Not Assessed. Description of Procedure The patient was prepped and draped in synchronous position in [facility]. After sterile prep and drape, a Joseph catheter was placed. The cervix was injected at 3 and 9 o'clock with ICG dye, and a V-Care device was then inserted. Gloves and gowns were changed, and we began by directly entering the abdomen. A small incision was made in the left upper quadrant and using a Veress needle the peritoneal cavity was entered, and a pneumoperitoneum was established including trocar placement. Thelaparoscope was inserted and examination of the peritoneal cavity revealed an omental adhesion in the region of the umbilicus . An additional robotic port was placed in the left lateral location and the right lateral location. An litigation legal assistant port was placed in the right paramedian location. We then took down the omental adhesion using Endoshears. We were then able to place the eugenio-umbilical robotic trocar. The robot was then docked. The patient had a previous bilateral salpingo-oophorectomy. We began by dividing the round ligament, developing each pararectal space, and identifying the ureter. [place] lymph nodes were visualizedon the left and removed. Care was taken to identify vascular and nerve structures to avoid compromise. Hemostasis was ascertained. There was no mapping on the right. We then proceeded with hysterectomy. Beginning on the left side, the ureter was identified, The cardinal ligaments were skeletonized,identifying the uterine vessels, which were sealed and transected, being free of the ureter bilaterally. An identical procedure was performed on the right side. The bladder flap was developed and theuterosacral ligaments were transected. The vagina was incised, and a circumferential incision was made, removing the uterus, tubes and ovaries transvaginally. The vagina was closed in a double layer fashion using Stratafix suture, incorporating the uterosacral ligaments into the cuff closure. The ur eters were followed from the pelvic brim to the vaginal cuff closure, and were not compromised. Hemostasis was satisfactory. The fascia of litigation legal assistant port was closed with the Salty-Camron device. All trocars were removed. The skin of all sites was closed with 3-0 Monocryl. The patient was taken to recovery in stable condition. Abigail Rasmussen M.D. * Brief Op Note - Chely Rogers M.D., M.S. - 02/12/2025 7:15 AM CDT Pre-op Diagnosis Malignant Neoplasm Of Uterus (HCC) Post-op Diagnosis Malignant Neoplasm Of Uterus (HCC) Findings Preoperative diagnosis G1 endometrioid adenocarcinoma on polypectomy specimen. Intraoperative findings include omental adhesions to the umbilicus which were taken down prior to camera port placement. No obvious abdominal or pelvic disease otherwise. Absent bilateral fallopian tubes and ovaries from previous surgery. Right sentinel lymph nodes did not map. Given low risk frozen pathology report for zaida involvement, did not proceed with right pelvic lymphadenectomy. Frozen pathology: Left sentinel lymph node negative for malignancy, Uterus with 1.4 cm tumor grade 1 endometrioid adenocarcinoma, no myometrial invasion. Joseph catheter placed intraoperative. Plan for OBG void trial postop given hx of urinary retention postop. Of note, at the conclusion of the procedure left labia majora swelling appreciated, consistent withcrepitus no hematoma. Complications None Chely Rogers M.D., M.S. documented in this encounter Miscellaneous Notes * Hospital Course - Tim Bailey M.D., M.P.H. - 02/13/2025 2:34 AM CDT DISCHARGE SUMMARY Admission Date: 02/12/2025 Discharge Date: 02/13/2025 Discharge Provider: Abigail Rasmussen M.D. Responsible Author(s): Tim Bailey M.D., M.P.H. PRIMARY DIAGNOSIS #1 Malignant Neoplasm Of Uterus (HCC) BRIEF HOSPITAL COURSE Surgeon: Abigail Rasmussen M.D. Warring, Simrit K, M.D., M.S. PROCEDURE DATE: 02/12/2025 TYPE OF PROCEDURE(S): Robotic-Assisted Total Abdominal Hysterectomy, Left [place] Pelvic Lymphadenectomy PROCEDURAL COMPLICATIONS: None POSTOPERATIVE COURSE: Uncomplicated. The patient was admitted POD#0 for postanesthesia dizziness. On POD#1 her dizziness resolved and she ambulated without difficulty. She was discharged home after meeting milestones. PATHOLOGY: Will follow-up final pathology. CYTOLOGY: Order Name Source Comment Collection Info Order Time [facility] [place] RESEARCH ORDER, B Blood, Venous PINK PINK PINK PINK PINK PINK PINK PINK PINK PINK PI: Justyn Cruz M.D. SC: Lubna Forbes R.N. IRB#: [id number] GRANADO: [id number] Study Alias: [facility] Subject ID: [id number] Visit: ENROLLMENT Collection Instructions: Draw tubes provided in Kit Special Instructions: * Forward this document and samples to Juju CHIRINOS * Study Collection only? YES / NO 02/12/2025 6:57 AM Region: [facility] Number of tubes for this collection (1-30): 5 MMR PROTEIN, IHC ONLY, TUMOR Uterus Collected By: Abigail Rasmussen M.D. 02/12/2025 10:57 AM Should the communication of this result to the patient's portal be released immediately? Manual release only MAYOCOMPLETE ENDOMETRIAL PANEL Uterus Collected By: Abigail Rasmussen M.D. 02/12/2025 10:57 AM Should the communication of this result to the patient's portal be released immediately? Manual release only CYTOLOGY NON-SWITCH MAKER Pelvis Collected By: Abigail Rasmussen M.D. 02/12/2025 9:35 AM Should the communication of this result to the patient's portal be released immediately? Manual release only SURGICAL PATHOLOGY, [facility] Pelvis Collected By: Abigail Rasmussen M.D. 02/12/2025 10:13 AM Should the communication of this result to the patient's portal be released immediately? Manual release only DISMISSAL LABS: Hemoglobin: Lab Results Component Value Date HGB 14.4 11/08/2024 Creatinine: Lab Results Component Value Date CREATININE 0.66 11/08/2024 CONDITION AT DISCHARGE Stable DISCHARGE DISPOSITION Home/Self Care FOLLOW-UP RECOMMENDATIONS A postoperative appointment will be arranged with your surgical team at the [place] [address]. You will be contacted with your appointment details. Any questions regarding your appointment shouldbe directed to the development coordinator at . CONTACT INFORMATION Instructions and Contact Information for Concerns, Issues, or Problems -If you experience a medical emergency, please call your local emergency response telephone number.For other questions, call the [facility] 24-hr telephone number: . Ask to be connected to the following service: Gynecologic Surgery - Abigail Rasmussen M.D. If you experience any of the following symptoms contact your surgical team: - Fever greater than 101 Fahrenheit - Abdominal pain that persists for more than 4 hours or any severe abdominal pain - Vomiting, inability to tolerate oral intake for more than 4 hours - Inability to empty your bladder or suprapubic catheter dysfunction - Constipation that is not relieved by dismissal or over the counter medications (see below) - Incision redness, especially if associated with pus or increasing tenderness HOW TO CONTACT YOUR SURGICAL TEAM: DURING BUSINESS HOURS: From 8 a.m. to 5 p.m. Monday through Monday call AFTER HOURS, WEEKENDS OR HOLIDAYS: For urgent questions and/or concerns, call the [facility] pneumatic jack operator at and request to speak to the physician train station agent for your surgical team. NOTE TO CAREGIVERS - If the patient appears very ill or is not easy to arouse take her directly to the nearest emergency room or call [phone] for emergency assistance. Do not wait to reach your surgical team. We will be happy to work with the emergency team nearest to you! INFORMATION FOR CONTINUING CARE POSTOPERATIVE RESTRICTIONS/INSTRUCTIONS: LIFTING: No lifting greater than 15 pounds for six weeks. PELVIC REST: No douching, tampons, or intercourse for six weeks. If prescribed, vaginal estrogen cream may be used during the postoperative period. DRIVING: No driving while on narcotics. Driving may be resumed initially with a competent passengerone to two weeks after surgery if no longer taking narcotics. EXERCISE: For six weeks your exercise should be limited to walking. You may walk as far as you wish, as long as you increase your level of exertion gradually and avoid slippery surfaces. You may climb stairs as needed to get around, but should not use stair climbing for exercise. VAGINAL DISCHARGE: You may develop a vaginal discharge and intermittent vaginal spotting after surgery and up to 6 weeks postoperatively. The discharge may have an odor and may change in color but itis normal. This is due to dissolving stitches. Contact your surgical team if you develop vaginal orvulvar irritation along with a discharge. Also contact your surgical team if you have vaginal discharge that smells like urine or stool. WOUND CARE: If you have a band-aid or bandage on your wound, you may remove it the day after dismissal. You may wash the wound with mild soap and water. You may shower at any time but should avoid immersing any abdominal incisions in water for at least two weeks after surgery or until the wound is completely healed. If given, please shower with Hibiclens soap until bottle is completely finished. Keep your wound clean and dry. You should observe your incision for signs of infection which includeredness, warmth, drainage or fever. CONSTIPATION REMEDIES: Patients are often constipated after surgery or with use of oral narcotic medicine. You should continue to take the stool softener, Senokot-S during the next six weeks, and consume adequate amounts of water. If you have not had a bowel movement for 3 days after dismissal, or are uncomfortable and unable to pass stool, please try one or all of the following measures: Milk of Magnesia - 30 cc by mouth every 12 hours Dulcolax suppository - One suppository per rectum every 4-6 hours Metamucil, Fibercon or other bulk former - use as directed Fleets Enema Prunes or Prune juice If you continue to have constipation after trying the above remedies, you should contact your surgical team using the contact information listed above. PAIN MEDICATIONS: Take your pain medications as instructed. It is best to take pain medications before your pain becomes severe. This will allow you to take less medication yet have better pain relief. For the first 2or 3 days it may be helpful to take your pain medications on a regular schedule (e.g. every 4 to 6 hours). This will help you to keep your pain under better control. You should then begin to take fewer medications each day until you no longer need them. Do not take pain medication on an empty stomach. This may lead to nausea and vomiting. MEDICATION DISPOSAL (Information adapted from the FDA.gov website on Safe Disposal of Medicines) Some medicines come with disposal instructions. If you received disposal instructions for a medicine, you should dispose of that medicine as directed. Proper disposal of medication keeps others safe by ensuring these medicines are not used again or accidentally ingested and avoid causing harm. Almost all medicines can be safely disposed of by using medicine take-back programs or using U.S. Drug Enforcement Agency (MARY)-authorized collectors. Otherwise, the following opioid medications can be flushed down the toilet when the medication is no longer needed: Oxycodone tablets, Hydromorphone tablets, Percocet tablets, Morphine tablets, Oxycontin tablets. If you want to locate the nearest MARY-authorized advisor consultant to you, this can be found at: https://apps.deadiversion.[employer].gov/pubdispsearch/spring/main If you currently smoke cigarettes, cigars, e-cigarettes, or pipes; chew tobacco; or have done so inthe past 12 months, it is important to quit. Talk with your physician about different ways to stop smoking. For additional information about smoking cessation, go to: http://www.mayoclinic.org/stop-smoking or call [phone]. documented in this encounter Plan of Treatment Upcoming Encounters Date Type Department Care Team (Late st Contact Info) Description 03/19/2025 11:30 AM CDT Office Visit Department of Obstetrics and Gynecology, Division of Gynecologic Oncology in [place], [place] [address] [place] [address] Stephanie Clay APRN, C.N.P. [address] [place] [address] Scheduled Referrals Name Type Priority Associated Diagnoses Order Schedule Obstetrics and Gynecology Post Op (clinic) Outpatient Referral Routine Expected: 03/20/2025 (Approximate), Expires: 02/13/2028 documented as of this encounter Procedures Procedure Name Priority Date/Time Associated Diagnosis Comments PULSE OXIMETRY WITH REMOTE OVERVIEW Routine 02/13/2025 1:35 AM CDT PULSE OXIMETRY WITH REMOTE OVERVIEW Routine 02/13/2025 1:35 AM CDT ADULT OXYGEN THERAPY Routine 02/12/2025 12:20 PM CDT MAYOCOMPLETE ENDOMETRIAL PANEL Routine 02/12/2025 10:56 AM CDT Malignant Neoplasm Of Uterus (HCC) MMR PROTEIN, IHC ONLY, TUMOR Routine 02/12/2025 10:56 AM CDT Malignant Neoplasm Of Uterus (HCC) SURGICAL PATHOLOGY, [facility] LAB Routine 02/12/2025 10:13 AM CDT Malignant Neoplasm Of Uterus (HCC) CYTOLOGY NON-SWITCH MAKER Routine 02/12/2025 9:35 AM CDT [facility] Routine 8:00 AM CDT Clinical Research Exam LYMPHADENECTOMY SENTINEL PELVIC 02/12/2025 7:35 AM CDT Malignant Neoplasm Of Uterus (HCC) ROBOTIC-ASSISTED HYSTERECTOMY TOTAL ABDOMINAL 02/12/2025 7:35 AM CDT Malignant Neoplasm Of Uterus (HCC) documented in this encounter Results * [facility], Next-Generation Sequencing, Tumor (02/12/2025 10:56 AM CDT) Result The results provided within this report represent molecular testing results only. Please refer to the Surgical Pathology report for the integrated molecular and pathology diagnosis (if applicable). Provided diagnosis: endometrial adenocarcinoma Microsatellite Instability (MSI) status: Stable (KASSI) No reportable sequence variants were detected within the analyzed regions of the tested genes listed in the method description. This test does not include NTRK fusion testing. Clinically approved therapy is available for patients with metastatic or unresectable solid tumors with an NTRK fusion [fda.gov/drugs]. If clinically indicated, consider NTRK Gene Fusion Panel (NTRK) for 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 Please refer to [employer] or call for more information. 03/05/2025 4:23 PM CDT DTL Additional Information CLINICAL TRIALS Possible clinical trials of benefit for this patient can be found at the following sites: 1) ClinicalTrials.gov: www.clinicaltrials. gov/ct2/search/adva nced 2) [facility]: www.[facility]/resear ch/clinical-trials/ 3) National Cancer [place]: www.cancer.gov/clin icaltrials/search 03/05/2025 4:23 PM CDT DTL Specimen Tissue, Tumor 03/05/2025 4:23 PM CDT DTL Tissue ID [id number] 03/05/2025 4:23 PM CDT DTL Method Microscopic examination is performed by a pathologist to identify areas of tumor for enrichment by macrodissection. Next generation sequencing is performed to test for the presence of microsatellite instability and a mutation within most coding regions and exon/intron boundaries of the following genes: DEMARCO, ATR, BRCA1, BRCA2, CDK12, CTNNB1, EPCAM, ERBB2, FBXW7, L1CAM, MLH1, MSH2, MSH6, NBN, PALB2, PMS2, POLE, KED1L9V, and TP53. Variant nomenclature is based on build GRCh37 (hg19). For details about gene transcripts (RefSeq accession numbers), specific targeted regions of each gene, and additional information on this test, see www.[employer]. [employer] (Test ID MCECP). 03/05/2025 4:23 PM CDT DTL Disclaimer This test cannot differentiate between somatic and germline alterations. Additional testing may be necessary to clarify the significance of results if there is a potential hereditary risk. DNA variants of uncertain significance may be identified. A negative result does not rule out the presence of a variant that may be present but below the limits of detection of this assay. The analytical sensitivity of this assay for sequence reportable alterations is 5% mutant allele frequency with a minimum coverage of 500X in a sample with at least 20% tumor content. Point mutations and small insertion/deletion mutations will be detected in the DEMARCO, ATR, BRCA1, BRCA2, CDK12, CTNNB1, EPCAM, ERBB2, FBXW7, L1CAM, MLH1, MSH2, MSH6, NBN, PALB2, PMS2, POLE, TSE2O7P, and TP53 genes only. This test may detect single exon deletions but does not detect multi-exon deletions, duplications, larger-scale genomic copy number variants, copy neutral loss of heterozygosity (IMAN), or epigenetic modifications such as promoter methylation. DELINS of 1,000 bp or less are detectable with at least 50 or more supporting reads. This test cannot reliably determine if a variant identified in PMS2 exons 11-15 originated from PMS2 or the highly homologous pseudogene PMS2CL. In the instance that a reportable variant is detected in PMS2 exons 11-15, additional testing will be recommended in the patient report. Variant allele frequency (VAF) is the percentage of sequencing reads supporting a specific variant divided by the total sequencing reads at that position. In somatic testing, VAF should be interpreted in the context of several factors including, but not limited to: tumor purity/heterogeneit y/copy number status (ploidy, gains/losses, loss of heterozygosity) and sequencing artifact/misalignme nt [PMID: 32657043, PMID: 74683460]. Rare polymorphisms may be present that could lead to false-negative or false-positive results. The presence or absence of a variant may not be predictive of response to therapy in all patients. Test results should be interpreted in the context of clinical, tumor sampling, histopathological, and other laboratory data. If results obtained do not match other clinical or laboratory findings, contact the laboratory for discussion. Misinterpretation of results may occur if the information provided is inaccurate and/or incomplete. Reliable results are dependent on adequate specimen collection and processing. This test has been validated on cytology slides and formalin-fixed, paraffin-embedded tissues; other types of fixatives are discouraged. Improper treatment of tissues, such as decalcification, may cause PCR failure. This test was developed and its performance characteristics determined by [facility] in a manner consistent with CLIA requirements. This test has not been cleared or approved by the U.S. Food and Drug Administration. 03/05/2025 4:23 PM CDT DTL Released By Juvenal Mendoza M.D., Ph.D. 03/05/2025 4:23 PM CDT DTL Interpretation No clinically significant gene mutations informative for diagnosis, prognosis or predictive of response to therapy were identified within the analyzed genes. Test results should be interpreted in the context of clinical findings, tumor sampling, histopathology, and other laboratory data. If results obtained do not match other clinical or laboratory findings, please contact the laboratory. If additional guidance is desired, surgical pathology consultation is available from [facility] ( ). MSI: Stable (KASSI) NO evidence of microsatellite instability was detected suggesting the presence of normal DNA mismatch repair function within the tumor. Current data suggest that advanced stage solid tumors with intact mismatch repair (KASSI) are less likely to be responsive to treatment with immunotherapies such as anti-PD-1 therapies [PMID 76814091, PMID 91302289]. However, lenvatinib in combination with pembrolizumab has been FDA-approved for patients with advanced endometrial carcinoma with intact mismatch repair (KASSI) and who have disease progression following prior systemic therapy but are not candidates for curative surgery or radiation [PMID: 18572509, PMID: 90435873]. 03/05/2025 4:23 PM CDT DTL Tissue (Uterus) 02/12/2025 1 0:56 AM CDT us Abigail Rasmussen M.D. LAB GENETIC TESTING Final Result [facility] [address] [place] [address], [facility] [address] [place] [address] * Mismatch Repair (MMR) Protein Immunohistochemistry Only, Tumor (02/12/2025 10:56 AM CDT) MLH1 IHC Performed 03/03/2025 5:00 PM CDT DTL MSH2 IHC Performed 03/03/2025 5:00 PM CDT DTL MSH6 IHC Performed 03/03/2025 5:00 PM CDT DTL PMS2 IHC Performed 03/03/2025 5:00 PM CDT DTL Result Provided diagnosis: endometrial adenocarcinoma IHC: Normal expression of MLH1, MSH2, MSH6, and PMS2 03/03/2025 5:00 PM CDT DTL Specimen Tissue, Tumor 03/03/2025 5:00 PM CDT DTL Tissue ID [id number] 03/03/2025 5:00 PM CDT DTL Released By Juvenal Mendoza M.D., Ph.D. 03/03/2025 5:00 PM CDT DTL Result Summary INTACT PROTEIN EXPRESSION 03/03/2025 5:00 PM CDT DTL Interpretation The results of the IHC analysis suggest the presence of normal DNA mismatch repair function within the tumor. However, these results do not completely rule out the possibility of defective DNA mismatch repair within the tumor because approximately 5% of cases with defective mismatch repair do not show absence of protein expression by IHC (Mod Pathol. 2019;335):871-879 (PMID: 74540461)). THERAPEUTIC IMPLICATIONS Current data suggest that in advanced stage solid tumors, targeted immunotherapies such as anti-PD-1 therapies are more likely to be effective in mismatch repair-deficient tumors than in mismatch repair-proficient tumors (Science. 2017 May 05;357(8817):409- 413 (PMID 97844885); J Clin Oncol. 2018 Oct 28:[id number] (PMID 36297760)). For interpretation of therapeutic implications of these results, MSI analysis should be considered to confirm KASSI/MSI-L status in this tumor due to the possibility of discordance between IHC and MSI results. HEREDITARY IMPLICATIONS These results decrease the likelihood but do not eliminate the possibility that this individual has Allison syndrome (LS). These results also do not exclude the possibility that this individual's tumor is due to an inherited defect in another gene not involved in DNA mismatch repair. A significant fraction of clinically defined LS cases (30% or more) do not have defective DNA mismatch repair as the underlying genetic basis of their disease. Additionally, we cannot rule out the possibility that this individual or family has LS because this tumor could represent a sporadic occurrence. If there is a strong personal or family history of LS related cancers for this individual or if this individual has multiple tumors, consider microsatellite instability (MSI) testing (MSI / Microsatellite Instability, Tumor) on this tumor or a different tumor to further evaluate the possible role of defective DNA mismatch repair for this individual or family. A genetic consultation may be of benefit. ADDITIONAL INFORMATION Consideration of these results, in light of other clinical information, may aid in clinical management decisions for this patient. These data should be interpreted in the context of the histopathologic findings. A surgical pathology consult may be ordered separately. 03/03/2025 5:00 PM CDT DTL Comment: ----ADDITIONAL INFORMATION---- Immunohistochemical staining (IHC) is used to determine the presence or absence of protein expression for one or more of the following: MLH1, MSH2, MSH6, and PMS2. Lymphocytes and normal epithelium exhibit strong nuclear staining to serve as positive internal controls for staining of these proteins. Test results should be interpreted in the context of clinical findings, family history, and other laboratory data. If results obtained do not match other clinical or laboratory findings, please contact the laboratory for possible interpretation. Misinterpretation of results may occur if the information provided is inaccurate or incomplete. This test was developed and its performance characteristics determined by [facility] in a manner consistent with CLIA requirements. This test has not been cleared or approved by the U.S. Food and Drug Administration. Tissue (Uterus) 02/12/2025 1 0:56 AM CDT Abigail Rasmussen M.D. LAB GENETIC TESTING Final Result [facility] [address] [place] [address], [facility] DT [address] [facility] [address] [place] [address] * Surgical Pathology, Frozen Lab (02/12/2025 10:13 AM CDT) 02/18/2025 3:13 PM CDT METH Report electronically signed by Sarwat Joya M.D. I verify that I have examined all relevant slides/materials for the specimen(s) and rendered or confirmed the diagnosis. 02/18/2025 3:13 PM CDT METH Frozen Intraoperative Report A. Lymph nodes, left pelvic, sentinel biopsy: Multiple (2) lymph nodes are negative for metastatic carcinoma. B. Uterus, hysterectomy: Endometrioid adenocarcinoma, FIGO grade 1, 1.4 cm in size, confined to the endometrium. Cervix negative for tumor. Signed by Crystal CooperB.S. 02/12/2025 10:50 PM 02/18/2025 3:13 PM CDT METH Gross Description A. Received fresh labeled left pelvic sentinel lymph node are multiple (3) lymph nodes: (a) 0.4 x 0.3 x 0.3 cm, (b) 0.7 x 0.5 x 0.4 cm, and (c) 0.9 x 0.5 x 0.4 cm. Blue dye is not identified in the lymph nodes. All submitted for frozen and permanent sections. Grossed by SAV Palafox PA (ASCP). B. Received fresh labeled uterus and cervix is a 79 gram uterus with cervix without attached bilateral fallopian tubes and ovaries. The uterine serosa is smooth. There is a 1.4 x 1.0 x 0.4 cm polypoid isaac-white mass in the anterior endometrium of the endometrial cavity, grossly invading 0.2 cm. The myometrial thickness is 1.8 cm. There are no uterine leiomyomas. There is a 0.3 x 0.2 x 0.2 cm isaac-yellow nodule away from the mass, on the anterior endometrium. Warehouse Inventory Clerk tissue submitted for frozen and permanent sections. Grossed by SAV Palafox PA (ASCP). Entire mass is submitted on 02/17/2025 by Ayala Rocha M.S., PA([facility]). 02/18/2025 3:13 PM CDT METH Block Summary A Left pelvic sentinel lymph node A1 Left pelvic sentinel lymph node a-frozen A2 Left pelvic sentinel lymph node b-frozen A3 Left pelvic sentinel lymph node c-frozen B Uterus and cervix B1 Anterior cervix- frozen B2 Posterior cervix - frozen B3 Mass - frozen B4 Anterior endometrial nodule - frozen B5 Mass 2 B6 Mass 3 02/18/2025 3:13 PM CDT METH Addendum Integrated histologic-molecu lar classification of the endometrial carcinoma. Histological diagnosis: Endometrioid carcinoma ? p53 status by (molecular): Wild-type ? MMR status (IHC and molecular ): Proficient ? POLE hotspot mutation (by NGS): Not detected ? Molecular classification: No specific molecular profile (NSMP/copy number-low) Comment: For full [facility] report, please refer to Case #[id number]. Test results for (IHC or SWEETIE) testing are valid for specimens fixed between 6 and 72 hours. Delay to fixation, under fixation or over fixation fall outside of guidelines and may affect these results. The following test(s) will be performed in the Genomics Laboratory: [facility] Endometrial Panel (MCECP) MMR Protein, IHC Only, Tumor (IHC) Results will be reported separately in the patient's medical record. Signed by Kathy Claudio M.D. 02/19/2025 3:31 PM 03/06/2025 5:24 PM CDT METH Comment:REVISED RESULTS Interpretation FINAL DIAGNOSIS A. Lymph nodes, left pelvic, sentinel biopsy: Two (2) lymph nodes, negative for tumor. Immunohistochemic al stains for AE1/AE3 are negative (blocks A1-A2). B. Uterus, hysterectomy: Endometrial endometrioid adenocarcinoma, FIGO grade 1, forming a 1.4 cm in the uterine corpus. Carcinoma involves superficial adenomyosis; myoinvasion is not identified. Lymphovascular invasion is not identified. The cervix is negative for tumor. See synoptic report. SYNOPTIC REPORT: Endometrial Carcinoma Procedure: Radical hysterectomy Specimen Integrity: Intact Tumor Site: Endometrium Tumor Size: 1.4 cm Histologic Type: Endometrioid carcinoma, NOS Histologic Grade: FIGO grade 1 Myometrial Invasion: Not identified Adenomyosis: Present, involved by carcinoma Uterine Serosa Involvement: Not identified Lower Uterine Segment Involvement: Not identified Cervical Stromal Involvement: Not identified Other Tissue/Organs Involvement: Not identified Peritoneal / Ascitic Fluid: Negative for malignancy ([id number]) Lymphatic and / or Vascular Invasion: Not identified Margin Status: All margins negative for invasive carcinoma Regional Lymph Node Status Regional Lymph Nodes Present All Regional Lymph Nodes Negative for Tumor Total Number of Pelvic Nodes Examined: 2 Number of Pelvic [place] Nodes Examined: 2 Total Number of Para-aortic Nodes Examined: 0 Total Number of Para-aortic [place] Nodes Examined: 0 Distant Metastasis: Not applicable Pathologic Staging (AJCC, 8th edition) Modified Classification not applicable pT Category:pT1a T Suffix: Not applicable pN Category: pN0 N Suffix: (sn) pM Category: Not applicable FIGO Stage (2022): IA1 The synoptic report incorporates information from all relevant surgical material and includes all required data elements of the current CAP Cancer Protocol. Digital imaging was used in the diagnostic assessment of this case. 03/06/2025 5:24 PM CDT METH Tissue (Pelvis) 02/12/2025 1 0:13 AM CDT Tissue (Uterus) 02/12/2025 1 0:55 AM CDT Abigail Rasmussen M.D. LAB SURG PATH ORDERABLES Edited Result - Final Performing Organization Address [facility] Co de Phone Number [facility] [address] [place] [address], [facility] METH [address] [facility] [address] [place] [address] * Cytology Non-SWITCH MAKER (02/12/2025 9:35 AM CDT) 02/13/2025 3:22 PM CDT DTL Report electronically signed by Vik Thorne M.D. I verify that I have examined all relevant slides/materi als for the specimen(s) and rendered or confirmed the diagnosis. 02/13/2025 3:22 PM CDT DTL Gross Description Received 100 cc of blood tinged fluid. 02/13/2025 3:22 PM CDT DTL Source A. Peritoneal, Pelvis, washing 02/13/2025 3:22 PM CDT DTL Interpretation A. Peritoneal, Pelvis, washing (ThinPrep): Negative for malignancy. 02/13/2025 3:22 PM CDT DTL Fluid (Pelvis) 02/12/2025 9: 35 AM CDT us Abigail Rasmussen M.D. LAB SURG PATH ORDERABLES Final Result Performing Organization Address [facility] Co de Phone Number [facility] [address] [place] [address], [facility] DTL [address] [facility] [address] [place] [address] * [facility], [facility] (02/12/2025 8:00 AM CDT) Number of Specimens 5 02/12/2025 8:00 AM CDT HSS Blood (Blood, Venous) 02/12/2025 8:00 AM CDT 02/12/2025 8:00 AM CDT Justyn Cruz M.D. LAB RESEARCH NO RESULT ROUTING Final Result [facility] [address] [place] [address], [place] [facility] [address] [place] [address] documented in this encounter Visit Diagnoses Diagnosis Malignant Neoplasm Of Uterus (HCC)- Primary Clinical Research Exam documented in this encounter Admitting Diagnoses Diagnosis Malignant Neoplasm Of Uterus (HCC) documented in this encounter Administered Medications Inactive Administered Medications - up to 3 most recent administrations Medication Order MAR Action Action Date Dose Rate Site acetaminophen tablet 1,000 mg (TylenoL) 1,000 mg, oral, Once, On Mon02/12/25 at 0715, For 1 dose, Pre-Op, In Pre Op holding (PWA) Given 02/12/2025 7:45 AM CDT 1,000 mg acetaminophen tablet 1,000 mg (TylenoL) 1,000 mg, oral, Once as needed, other, If patient has not received in the previous 6 hours, Starting on Mon02/12/25 at 1220, For 1 dose, PACU (only), Oral unless RASS less than -1 or nausea/vomiting. Do not use if given in last 6 hours Given 02/12/2025 1:37 PM CDT 1,000 mg acetaminophen tablet 1,000 mg (TylenoL) 1,000 mg, oral, Every 6 hours PRN, pain, Starting on Mon02/12/25 at 1930, not to exceed 4 grams in 24 hours. Given 02/12/2025 7:22 PM CDT 1,000 mg acetaminophen tablet 1,000 mg (TylenoL) 1,000 mg, oral, Every 6 hours, First dose (after last modification) on Jennifer 02/13/25 at 0230, not to exceed 4 grams in 24 hours. Given 02/13/2025 7:34 AM CDT 1,000 mg Given 02/13/2025 1:42 AM CDT 1,000 mg aprepitant injection 32 mg (Aponvie) 32 mg, intravenous, Once, On Mon02/12/25 at 0730, For 1 dose, Pre-Op, Restriction Criteria (Pharmacy will review and approve if criteria met): Meet restriction criteria Given 02/12/2025 7:45 AM CDT 32 mg D5W infusion 1-999 mL/hr, intravenous, As needed, Medications Incompatible with 0.9% NaCL, Starting on Mon02/12/25 at 2116, Infuse at the same rate as the piggyback until tubing clears or up to a volume of 20 mL pre and post infusion for medications incompatible with 0.9% NaCL. Use 50 mL bag then discard. FLUoxetine capsule 80 mg (PROzac) 80 mg, oral, Daily, First dose on Jennifer 02/13/25 at 0900, FLUoxetine orderable was interchanged for FLUoxetine tablet/capsule Given 02/13/2025 9:53 AM CDT 80 mg ketorolac injection 15 mg (ToradoL) 15 mg, intravenous, Every 6 hours, First dose on Mon02/12/25 at 1730, For 4 doses, start no sooner than 6 hours after last intraoperative dose. Adult IV push rate: Over 15 seconds. Peds IV push rate: Over 1 minute. Doses > 15 mg IV/IM are discouraged due to lack of additional analgesic benefit. Given 02/13/2025 4:35 AM CDT 15 mg Given 02/12/2025 11:03 PM CDT 15 mg Given 02/12/2025 5:44 PM CDT 15 mg Lactated Ringer's 40 mL/hr, intravenous, Continuous, Starting on Mon02/12/25 at 1600 Rate/Dose Verify 02/13/2025 5:08 AM CDT 40 mL/hr 40 mL/hr New Bag 02/12/2025 8:43 PM CDT 40 mL/hr 40 mL/hr New Bag 02/12/2025 5:40 PM CDT 40 mL/hr 40 mL/hr Lactated Ringer's 20 mL/hr, intravenous, Continuous, Starting on Mon02/12/25 at 1200, PACU & Post-Op Continued from OR 02/12/2025 12:15 PM CDT 20 mL/hr 20 mL/hr NaCl 0.9% infusion 1-999 mL/hr, intravenous, As needed, Between Consecutive Piggyback Medications, Starting on Mon02/12/25 at 2116, For 7 days, Infuse at the same rate as the piggyback until tubing clears or up to a volume of 20 mL. Select for IV medication administration when no maintenance IV available or when IV medications are not compatible with maintenance fluid. NaCl 0.9% infusion 1-999 mL/hr, intravenous, As needed, Post Medications (Hazardous/Low Fluid Volume), Starting on Mon02/12/25 at 2116, For 7 days, Infuse at the same rate as the medication until tubing cleared of medication, then discard. ondansetron (PF) injection 4 mg (Zofran) 4 mg, intravenous, Every 6 hours PRN, nausea, vomiting, Starting on Mon02/12/25 at 1535, For 48 hours, Reassess for nausea or vomiting after at least 10 minutes. If nausea or vomiting persists administer next ordered antiemetic medications (order for antiemetic medication administration ondansetron then haloperidol then prochlorperazine). Given 02/13/2025 7:43 AM CDT 4 mg Given 02/12/2025 8:37 PM CDT 4 mg oxyCODONE IR tablet 10 mg (Roxicodone) 10 mg, oral, Every 4 hours PRN, severe pain or score 7-10 of 10, Starting on Mon02/12/25 at 1535, Administer if pain is unrelieved by acetaminophen. For patients that received intrathecal analgesia, start 24 hours after intrathecal dose given. oxyCODONE IR tablet 5 mg (Roxicodone) 5 mg, oral, Once as needed, For pain 4 or greater, Starting on Mon02/12/25 at 1220, For 1 dose, PACU (only) Given 02/12/2025 1:37 PM CDT 5 mg oxyCODONE IR tablet 5 mg (Roxicodone) 5 mg, oral, Every 4 hours PRN, moderate pain or score 4-6 of 10, Starting on Mon02/12/25 at 1535, Administer if pain is unrelieved by acetaminophen. For patients that received intrathecal analgesia, start 24 hours after intrathecal dose given. rosuvastatin tablet 10 mg (Crestor) 10 mg, oral, Daily, First dose on Jennifer 02/13/25 at 0900 Given 02/13/2025 9:53 AM CDT 10 mg sodium chloride 0.9 % injection 10 mL 10 mL, intravenous, As needed, line care, Peripheral Intravenous Catheter and Rapid Infusion Catheter, Starting on Mon02/12/25 at 2116, Prior to blood sampling, post blood transfusion or post blood sampling. sodium chloride 0.9 % injection 3 mL 3 mL, intravenous, As needed, line care, Peripheral Intravenous Catheter and Rapid Infusion Catheter, Starting on Mon02/12/25 at 2116, Prior to and following infusion and between multiple consecutive infusions. Given 02/13/2025 7:43 AM CDT 3 mL sodium chloride 0.9 % injection 3 mL 3 mL, intravenous, Every 24 hours scheduled, First dose on Jennifer 02/13/25 at 0900, Peripheral Intravenous Catheter and Rapid Infusion Catheter: When no infusion to maintain patency. documented in this encounter Active and Recently Administered Medications Times are shown in CDT. Scheduled Medication Order 02/11/2025 02/12/2025 02/13/2025 acetaminophen tablet 1,000 mg (TylenoL) (COMPLETED) 1,000 mg, oral, Once, On Mon02/12/25 at 0715, For 1 dose, Pre-Op, In Pre Op holding (PWA) 0745 (Given - Provider: Geri Barron R.N.) acetaminophen tablet 1,000 mg (TylenoL) 1,000 mg, oral, Every 6 hours, First dose (after last modification) on Jennifer 02/13/25 at 0230, not to exceed 4 grams in 24 hours. 0142 (Given - Provid er: Melanie Mccormick RChavaNChava)0734 (Given - Provider: Justyn Carpio R.N.) aprepitant injection 32 mg (Aponvie) (COMPLETED) 32 mg, intravenous, Once, On Mon02/12/25 at 0730, For 1 dose, Pre-Op, Restriction Criteria (Pharmacy will review and approve if criteria met): Meet restriction criteria 0745 (Given - Provider: Geri Barron R.N.) ceFAZolin injection 2,000 mg (Ancef) (COMPLETED) 2,000 mg (rounded from 2,675 mg = 25 mg/kg 107 kg), intravenous, Once, On Mon02/12/25 at 0815, For 1 dose, Intra-Op, Preoperatively within 1 hour prior to surgical incision For immediate IV push administration, reconstitute vial per IVAG or package insert instructions. See IVAG for administration guidelines., Drug Monitoring Program: Pharmacist to adjust medication dosing based on indication and drug clearance factors., Indications: Prophylaxis, surgical 0853 (Given - Provider: Suzanna Hernández APRN, BLU, DNAP) FLUoxetine capsule 80 mg (PROzac) 80 mg, oral, Daily, First dose on Jennifer 02/13/25 at 0900, FLUoxetine orderable was interchanged for FLUoxetine tablet/capsule 0953 (Given - Provid er: Justyn Carpio RChavaN.) gabapentin capsule 200 mg (Neurontin) 200 mg, oral, Daily at bedtime, First dose on Jennifer 02/13/25 at 2100 heparin (porcine) injection 5,000 Units (COMPLETED) 5,000 Units, subcutaneous, Once, On Mon02/12/25 at 0815, For 1 dose, Intra-Op, Administer prior to induction of anesthesia. 0834 (Given - Provider: Suzanna Hernández APRN, BLU, DNAP - Comment: SQ Abdomen, LLQ) ibuprofen tablet 600 mg(Linked Group 1) 600 mg, oral, Every 6 hours, First dose on Jennifer 02/13/25 at 1730, start 6 hours after last ketorolac dose administered. ketorolac injection 15 mg (ToradoL)(Linked Group 1) 15 mg, intravenous, Every 6 hours, First dose on Mon02/12/25 at 1730, For 4 doses, start no sooner than 6 hours after last intraoperative dose. Adult IV push rate: Over 15 seconds. Peds IV push rate: Over 1 minute. Doses > 15 mg IV/IM are discouraged due to lack of additional analgesic benefit. 1744 (Given - Provider: Tiffanie TubbsSChavaNChava, R.N.)2303 (Given - Provider: Melanie Mccormick RChavaN.) 0435 (Given - Provider: Melanie Mccormick RChavaN.)1130 (Due) rosuvastatin tablet 10 mg (Crestor) 10 mg, oral, Daily, First dose on Jennifer 02/13/25 at 0900 0953 (Given - Provid er: Justyn Carpio RChavaNChava) sodium chloride 0.9 % injection 3 mL 3 mL, intravenous, Every 24 hours scheduled, First dose on Jennifer 02/13/25 at 0900, Peripheral Intravenous Catheter and Rapid Infusion Catheter: When no infusion to maintain patency. 0954 (Not Given - Provider: Justyn Carpio R.N. - Reason: Other - Comment: discharging) Continuous Medication Order 02/11/2025 02/12/2025 02/13/2025 Lactated Ringer's (CANCELED) 40 mL/hr, intravenous, Continuous, Starting on Mon02/12/25 at 1600 1614 (Continued from OR - Provider: Tiffanie TubbsS.NChava, R.N.)1740 (New Bag - Provider: Tiffanie TubbsSChavaNChava, R.N.)2043 (New Bag - Provider: Melanie Mccormick R.N.) 0508 (Rate/Dose Verify - Provider: Melanie Mccormick R.N.)0629 (Stopped - Provider: Melanie Mccormick R.N.) Lactated Ringer's (CANCELED) 20 mL/hr, intravenous, Continuous, Starting on Mon02/12/25 at 1200, PACU & Post-Op 1215 (Continued from OR - Provider: Erick Reyes R.N.) PRN Medication Order 02/11/2025 02/12/2025 02/13/2025 acetaminophen tablet 1,000 mg (TylenoL) (COMPLETED)(Linked Group 2) 1,000 mg, oral, Once as needed, other, If patient has not received in the previous 6 hours, Starting on Mon02/12/25 at 1220, For 1 dose, PACU (only), Oral unless RASS less than -1 or nausea/vomiting. Do not use if given in last 6 hours 1337 (Given - Provider: Erick Reyes R.N.) acetaminophen tablet 1,000 mg (TylenoL) (CANCELED) 1,000 mg, oral, Every 6 hours PRN, pain, Starting on Mon02/12/25 at 1930, not to exceed 4 grams in 24 hours. 1922 (Given - Provider: Cristy Rich R.N.) BUPivacaine 0.5 % (5 mg/mL) injection (Marcaine) (CANCELED) As needed, Starting on Mon02/12/25 at 1145, Intra-Op 1145 (Given - Provider: Chely Rogers M.D., M.S.) D5W infusion 1-999 mL/hr, intravenous, As needed, Medications Incompatible with 0.9% NaCL, Starting on Mon02/12/25 at 2116, Infuse at the same rate as the piggyback until tubing clears or up to a volume of 20 mL pre and post infusion for medications incompatible with 0.9% NaCL. Use 50 mL bag then discard. famotidine tablet 10 mg (Pepcid) 10 mg, oral, 2 times daily PRN, heartburn, indigestion, Starting on Mon02/12/25 at 2203, Drug Monitoring Program: Pharmacist to adjust medication dosing based on indication and drug clearance factors. haloperidol lactate injection 1 mg (HaldoL) 1 mg, intravenous, Every 6 hours PRN, nausea, vomiting, Starting on Mon02/12/25 at 1535, For 48 hours, Total of 3 doses in 24 hour period. RASS must be -2 or higher to administer. Reassess for nausea or vomiting after at least 10 minutes. If nausea or vomiting persists administer next ordered antiemetic medications (order for antiemetic medication administration ondansetron then haloperidol then prochlorperazine) HYDROmorphone (PF) injection 0.2 mg (Dilaudid) 0.2 mg, intravenous, Every 2 hour PRN, for breakthrough pain, Starting on Mon02/12/25 at 1535, Unrelieved 30 minutes after PRN oral pain medication is used; if unable to take oral pain medication; or if pain is greater than or equal to 7, use instead of oral pain medication. NaCl 0.9% infusion 1-999 mL/hr, intravenous, As needed, Between Consecutive Piggyback Medications, Starting on Mon02/12/25 at 2115, For 7 days, Infuse at the same rate as the piggyback until tubing clears or up to a volume of 20 mL. Select for IV medication administration when no maintenance IV available or when IV medications are not compatible with maintenance fluid. NaCl 0.9% infusion 1-999 mL/hr, intravenous, As needed, Post Medications (Hazardous/Low Fluid Volume), Starting on Mon02/12/25 at 2115, For 7 days, Infuse at the same rate as the medication until tubing cleared of medication, then discard. naloxone injection 0.2 mg (Narcan) 0.2 mg, intravenous, As needed, respiratory depression, Starting on Mon02/12/25 at 1535, For RASS Score -4 or less, respiratory rate of less than 8 breaths/min. Notify provider/service and rapid response team (if available at institution). ondansetron (PF) injection 4 mg (Zofran) 4 mg, intravenous, Every 6 hours PRN, nausea, vomiting, Starting on Mon02/12/25 at 1535, For 48 hours, Reassess for nausea or vomiting after at least 10 minutes. If nausea or vomiting persists administer next ordered antiemetic medications (order for antiemetic medication administration ondansetron then haloperidol then prochlorperazine). 2036 (Given - Provider: Melanie Mccormick REverton) 0743 (Given - Provider: Justyn Carpio REver[place]) oxyCODONE IR tablet 10 mg (Roxicodone)(Linked Group 3) 10 mg, oral, Every 4 hours PRN, severe pain or score 7-10 of 10, Starting on Mon02/12/25 at 1535, Administer if pain is unrelieved by acetaminophen. For patients that received intrathecal analgesia, start 24 hours after intrathecal dose given. oxyCODONE IR tablet 5 mg (Roxicodone) (COMPLETED) 5 mg, oral, Once as needed, For pain 4 or greater, Starting on Mon02/12/25 at 1220, For 1 dose, PACU (only) 1337 (Given - Provider: Erick Reyes RMacie.) oxyCODONE IR tablet 5 mg (Roxicodone)(Linked Group 3) 5 mg, oral, Every 4 hours PRN, moderate pain or score 4-6 of 10, Starting on Mon02/12/25 at 1535, Administer if pain is unrelieved by acetaminophen. For patients that received intrathecal analgesia, start 24 hours after intrathecal dose given. prochlorperazine injection 5 mg (Compazine) 5 mg, intravenous, Every 6 hours PRN, nausea, vomiting, Starting on Mon02/12/25 at 1535, For 48 hours, RASS must be -2 or higher to administer. Reassess for nausea/vomiting after at least 10 minutes. If nausea or vomiting persists administer next ordered antiemetic medications (order for antiemetic medication administration ondansetron then haloperidol then prochlorperazine) sodium chloride 0.9 % injection 10 mL 10 mL, intravenous, As needed, line care, Peripheral Intravenous Catheter and Rapid Infusion Catheter, Starting on Mon02/12/25 at 2116, Prior to blood sampling, post blood transfusion or post blood sampling. sodium chloride 0.9 % injection 3 mL 3 mL, intravenous, As needed, line care, Peripheral Intravenous Catheter and Rapid Infusion Catheter, Starting on Mon02/12/25 at 2116, Prior to and following infusion and between multiple consecutive infusions. 0743 (Given - Provid er: Justyn Carpio R.N.) Linked Groups Order Group 1: ketorolac injection 15 mg (ToradoL)Jump to med 15 mg, intravenous, Every 6 hours, First dose on 02/12/25 at 1730, For 4 doses, start no sooner than 6 hours after last intraoperative dose. Adult IV push rate: Over 15 seconds. Peds IV push rate: Over 1 minute. Doses > 15 mg IV/IM are discouraged due to lack of additional analgesic benefit. Followed by ibuprofen tablet 600 mgJump to med 600 mg, oral, Every 6 hours, First dose on Jennifer 02/13/25 at 1730, start 6 hours after last ketorolac dose administered. Group 2: acetaminophen tablet 1,000 mg (TylenoL) (COMPLETED)Jump to med 1,000 mg, oral, Once as needed, other, If patient has not received in the previous 6 hours, Starting on 02/12/25 at 1220, For 1 dose, PACU (only), Oral unless RASS less than -1 or nausea/vomiting. Do not use if given in last 6 hours Or acetaminophen injection 1,000 mg (COMPLETED) 1,000 mg, intravenous, at 400 mL/hr, Administer over 15 Minutes, Once as needed, other, If patient has not received in previous 6 hours, Starting on 02/12/25 at 1220, For 1 dose, PACU (only), Oral unless RASS less than -1 or nausea/vomiting. Do not use if given in last 6 hours, Restriction Criteria (Pharmacy will review and approve if criteria met): Unable to take or tolerate medications administered via the enteral route or orally (not just NPO) Group 3: oxyCODONE IR tablet 5 mg (Roxicodone)Jump to med 5 mg, oral, Every 4 hours PRN, moderate pain or score 4-6 of 10, Starting on Mon02/12/25 at 1535, Administer if pain is unrelieved by acetaminophen. For patients that received intrathecal analgesia, start 24 hours after intrathecal dose given. Or oxyCODONE IR tablet 10 mg (Roxicodone)Jump to med 10 mg, oral, Every 4 hours PRN, severe pain or score 7-10 of 10, Starting on Mon02/12/25 at 1535, Administer if pain is unrelieved by acetaminophen. For patients that received intrathecal analgesia, start 24 hours after intrathecal dose given. 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
--- OUTSIDE RECORDS SUMMARY | 2025-02-12 07:15 | XMS_ITS | Encounter Summary ---
Author Organization [facility] Address [address] [place] [address] Care Team Providers Care Administration Dean Name Role Phone Elsewhere, Pcp Primary Care Provider Unavailabl e Encounter Details Date Type Department Care Team (Late st Contact Info) Description 02/12/2025 7:15 AM CDT - 02/12/2025 12:27 PM CDT Surgery [facility] MAIN OR [address] [place] [address] Abigail Rasmussen M.D. [address] [place] [address] ROBOTIC-ASSISTED HYSTERECTOMY TOTAL ABDOMINAL. Social History Tobacco Use Types Packs/Day Years Used Date Smoking Tobacco: Never Passive Smoke Exposure: Never Smokeless Tobacco: Never Alcohol Use Standard Drinks/Week Comments Yes 2 (1 standard drink = 0.6 oz pur e alcohol) [facility] Utilities Answer Date Recorded In the past 12 months has e electric, gas, oil, or water company [...] Date Recorded Dental: Regular Dentist Yes 11/06/19 24 Employment Answer Date Recorded Employment status Retired 12/26/2024 Housing Stability Answer Date Recorded What is your living situation today? I have a [facility] place to live 02/13/2025 Comments No Sex and Gender Information Value Date Recorded Sex Assigned at Female 10/29/2023 4:34 PM WOODWORKER HELPER Legal Sex Female 8:57 AM WOODWORKER HELPER Gender Identity Female 10/29/2023 4:34 PM WOODWORKER HELPER Sexual Orientation Straight 10/29/2023 4: 34 PM WOODWORKER HELPER documented as of this encounter Last Filed Vital Signs Vital Sign Reading Time Taken Comments Blood Pressure 108/75 02/12/2025 12:19 PM CDT Pulse 72 02/12/2025 12:19 PM CDT Temperature 36.6 C (97.9 F) 02/12/2025 12:19 PM CDT Respiratory Rate 14 02/12/2025 12:19 PM CDT Oxygen Saturation 97% 02/12/2025 12:19 PM CDT Inhaled Oxygen Concentration - - Weight 110 kg (241 lb 10 oz) 02/12/2025 7:16 AM CDT Height 163.5 cm (5' 4.37) 02/12/2025 7:16 AM CD T Body Mass Index 41 02/12/2025 7:16 AM CDT documented in this encounter Discharge Summaries * Chely Rgoers M.D., M.S. - 02/13/2025 7:00 AM CDT DISCHARGE SUMMARY BRIEF OVERVIEW Hospital: [facility] Discharge Provider: Abigail Rasmussen M.D. Primary Team: [facility] Gynecologic Surgery - Rasmussen Primary Care Providers: Elsewhere, Pcp (General) No [...] Abigail Rasmussen M.D.Warring, Simrit K, M.D., M.S. [facility] OR DISCHARGE DISPOSITION Home or Self Care [1] ACTIVE ISSUES REQUIRING FOLLOW UP See AVS OUTPATIENT FOLLOW UP For appointment details refer to your Patient Appointment Guide. TEST RESULTS PENDING AT DISCHARGE Pending Labs Order Current Status [facility] Endometrial Carcinoma Panel, Next-Generation Sequencing, Tumor Collected (02/12/25 105) Mismatch Repair (MMR) Protein Immunohistochemistry Only, Tumor Collected (02/12/25 105) Cytology Non-STRAP CUTTING MACHINE OPERATOR In process Surgical Pathology, Frozen Lab Preliminary [...] OF PROCEDURE(S): Robotic-Assisted Total Abdominal Hysterectomy, Left Lacombe Pelvic Lymphadenectomy PROCEDURAL COMPLICATIONS: None POSTOPERATIVE COURSE: Uncomplicated. The patient was admitted POD#0 for postanesthesia dizziness. On POD#1 her dizziness resolved and she ambulated without difficulty. She was discharged home after meeting milestones. PATHOLOGY: Will follow-up final pathology. CYTOLOGY: Order Name Source Comment Collection Info Order Time [facility] RESEARCH ORDER, B Blood, Venous PINK PINK PINK PINK PINK PINK PINK PINK PINK PINK PI: Justyn Cruz M.D. SC: Lubna Forbes R.N. IRB#: [id number] GRANADO: [id number] Study Alias: [facility] Subject ID: [id number] Visit: ENROLLMENT Collection Instructions: Draw tubes provided in Kit Special Instructions: * Forward this document and samples to Juju CHIRINOS * Study Collection only? YES / NO 02/12/2025 6:57 AM Region: [facility] Number of tubes for this collection [...] be released immediately? Manual release only CYTOLOGY NON-STRAP CUTTING MACHINE OPERATOR Pelvis Collected By: Abigail Rasmussen M.D. 02/12/2025 [...] arranged with your surgical team at the [place] [address]. You will be contacted with your appointment details. Any questions regarding your appointment shouldbe directed to the implant coordinator at . CONTACT INFORMATION Instructions and Contact Information for Concerns, Issues, or Problems -If you experience a medical emergency, please call your local emergency response telephone number.For other questions, call the [facility] 24-hr telephone number: . Ask to be [...] For urgent questions and/or concerns, call the [facility] winchman/crane operator at and request to speak to the physician breakdown person for your surgical team. NOTE TO CAREGIVERS - If the patient appears very ill or is not easy to arouse take her directly to the nearest emergency room or call 239 for emergency assistance. Do not wait to [...] you want to locate the nearest MARY-authorized delinquent tax collector to you, this can be found at: https://apps.deadiversion.AliNarr8.gov/pubdispsearch/spring/ If you currently smoke cigarettes, cigars, e-cigarettes, or pipes; chew tobacco; or have done so inthe past 12 months, it is important to quit. Talk with your physician about different ways to stop smoking. For additional information about smoking cessation, go to: http://www.[facility].org/stop-smoking or call 115-427-0428. CONSULTS ORDERED DURING THIS ADMISSION IP CONSULT TO CARE MANAGEMENT CONDITION AT DISCHARGE stable Discharge instructions were provided to the patient and caregiver(s). documented in this encounter Discharge Instructions * Discharge Instructions* Adair Zarate - 02/13/2025 8:23 AM CDT You were discharged from the [facility] Gynecologic Surgery - Rasmussen Service. Please identify this service name if you call with questions after hospitalization. * Attachments The following attachments cannot be sent through Care Everywhere. * Ondansetron (By mouth, Into the mouth) (Somali) documented in this encounter Medications at Time [...] for SIC teaching. Chely Rogers M.D., M.S. STRAP CUTTING MACHINE OPERATOR ONC Fellow Please direct questions/concerns to service pager. * Vivi Lucio, Pharm.D., R.Ph., BCPS - 02/12/2025 8:32 PM CDT Images from [...] method is an electrochemiluminescence assay manufactured by [employer] and performed on the Kosta system. [...] the patient that in our practice at [facility], we sometimes perform overlapping surgeries, meaning that [...] this encounter Consult Notes * Mark Newman R.N. - 02/13/2025 8:32 AM CDTAssociated Order(s): IP CONSULT TO CARE MANAGEMENT Discharge Planning Assessment SUBJECTIVE Assessment Information Referral Data Referral Source: Nurse Referral Name: Melanie Mccormick Andressa Pabon Referral Reason: Discharge Planning (ESDP 15) Previous Assessment: No Classroom Monitor Services Used: No Primary Language: Somali Classroom Monitor Services Used: No Person(s) Present During Interview: patient History of Present Illness #1 Malignant Neoplasm Of Uterus (HCC) Social History Marital Status: Family / Household: Lives with Support System: spouse, children, family members, and friends/neighbors Primary Caregiver: self Social Drivers of Health with Concerns Utilities: At Risk (12/26/2024) [facility] Utilities Threatened with loss of utilities: Yes Intimate Partner Violence: Not on file OBJECTIVE Finance/Insurance Primary insurance: MEDICARE A AND B Secondary insurance: UTOPY benefits: No Advance Directives Legal Decision Maker: Self Baseline Functional Status Baseline Activities of Daily Living Mobility: Modified independent Dressing: Independent Feeding: Independent Bathing: Independent Grooming: Independent Toileting: Independent Behavior: Pleasant, Appropriate, Calm, Cooperative, Oriented Communication: Talks, Understands speaking, Understands Somali Shopping: Independent Medication Management: Independent Housekeeping: Independent Meal Prep: Independent Assistive Devices: Cane, Tub/shower chair/bench, Grab bars - toilet, Grab bars - wall, Hand held shower, Eyeglasses, Cellphone, Blood pressure cuff Transportation: Independent to drive Managing Finances: Independent Baseline Services/Resources Primary care clinic and provider: PCP Wandy Sterling MD [address] [place] [address] Additional Resources: Additional Services: NA Anticipated Needs Functional Status: None Assistive Devices: None Anticipated Modifications to the Patient's Home: None Transportation Needs: Support from family Does the patient need discharge transport arranged?: No Phone Number for Ride/Caregiver: Conrado [phone] Anticipated Discharge Destination: Home or Self Care Referrals Initiated: None tool profiling machine set up operator provided Care Management Brochure ([id number]), information regarding the dismissal process, and the Senior Linkage Line ([place] Board on Aging) handout. ASSESSMENT / PLAN ASSESSMENT: The tool profiling machine set up operator met with Martha [facility] to discuss her current hospitalization and home going needs. The patient was unaccompanied. The patient was a reliable historian. The role of tool profiling machine set up operator was reviewed. The patient reviewed her prior level of care and support system. The patient receives support from her , children, and extended family. When case management entered the room, the patient was lying in bed watching television, alert, andoriented. Upon meeting with the patient, the telephonic nurse case manager introduced themselves, their role within the multidisciplinary [...] be provided by her and children . tool profiling machine set up operator recommendations include: home delivery of groceries and [...] will be provided by family-- Conrado . tool profiling machine set up operator encouraged the patient to reach out with [...] Post-op Diagnosis Malignant Neoplasm Of Uterus (HCC) Engineer/Conductor A family readiness support assistant actively participated and was necessary for one [...] Non metastatic. Method: ICG. Left lymph node: Lacombe Lymph Nodes. Left lymph node: External iliac. Right lymph node: Not Assessed. Description of Procedure The patient was prepped and draped in synchronous position in [facility]. After sterile prep and drape, a [...] location and the right lateral location. An retail assistant manager port was placed in the right paramedian location. We then took down the omental adhesion using Endoshears. We were then able to place the eugenio-umbilical robotic trocar. The robot was then docked. The patient had a previous bilateral salpingo-oophorectomy. We began by dividing the round ligament, developing each pararectal space, and identifying the ureter. Lacombe lymph nodes were visualizedon the left and [...] compromised. Hemostasis was satisfactory. The fascia of retail assistant manager port was closed with the Salty-Camron device. [...] OF PROCEDURE(S): Robotic-Assisted Total Abdominal Hysterectomy, Left Lacombe Pelvic Lymphadenectomy PROCEDURAL COMPLICATIONS: None POSTOPERATIVE COURSE: Uncomplicated. The patient was admitted POD#0 for postanesthesia dizziness. On POD#1 her dizziness resolved and she ambulated without difficulty. She was discharged home after meeting milestones. PATHOLOGY: Will follow-up final pathology. CYTOLOGY: Order Name Source Comment Collection Info Order Time [facility] RESEARCH ORDER, B Blood, Venous PINK PINK PINK PINK PINK PINK PINK PINK PINK PINK PI: Justyn Cruz M.D. SC: Lubna Forbes R.N. IRB#: [id number] GRANADO: [id number] Study Taylor: Paul Subject ID: [id number] Visit: ENROLLMENT Collection Instructions: Draw tubes provided in Kit Special Instructions: * Forward this document and samples to TREVEve APPIAH_Carlee * Study Collection only? YES / NO 02/12/2025 6:57 AM Region: [facility] Number of tubes for this collection (30): [...] be released immediately? Manual release only CYTOLOGY NON-STRAP CUTTING MACHINE OPERATOR Pelvis Collected By: Abigail Rasmussen M.D. 02/12/2025 [...] arranged with your surgical team at the [place] [address]. You will be contacted with your appointment details. Any questions regarding your appointment shouldbe directed to the implant coordinator at . CONTACT INFORMATION Instructions and Contact Information for Concerns, Issues, or Problems -If you experience a medical emergency, please call your local emergency response telephone number.For other questions, call the [facility] 24-hr telephone number: . Ask to be [...] For urgent questions and/or concerns, call the [facility] winchman/crane operator at and request to speak to the physician breakdown person for your surgical team. NOTE TO CAREGIVERS - If the patient appears very ill or is not easy to arouse take her directly to the nearest emergency room or call [phone] for emergency assistance. Do not wait to [...] directed. Proper disposal of medication keeps others safeby ensuring these medicines are not used again [...] you want to locate the nearest MARY-authorized delinquent tax collector to you, this can be found at: https://apps.deadiversion.AliNarr8.gov/pubdispsearch/spring/ If you currently smoke cigarettes, cigars, e-cigarettes, or pipes; chew tobacco; or have done so inthe past 12 months, it is important to quit. Talk with your physician about different ways to stop smoking. For additional information about smoking cessation, go to: http://www.[facility].org/stop-smoking or call 705-442-9666. documented in this encounter Plan of Treatment Upcoming Encounters Date Type Department Care Team (Late st Contact Info) Description 03/19/2025 11:30 AM CDT Office Visit Department of Obstetrics and Gynecology, Division of Gynecologic Oncology in [place], [place] [address] [place] [phone] Stephanie Clay, RADIOGRAPHIC TECHNOLOGIST, C.N.P. [address] [place] [phone] Scheduled Referrals Name Type Priority Associated Diagnoses [...] CDT Malignant Neoplasm Of Uterus (HCC) CYTOLOGY NON-STRAP CUTTING MACHINE OPERATOR Routine 02/12/2025 9:35 AM CDT Malignant Ne[facility]us (HCC) [facility], B Routine 8:00 AM CDT Clinical Research Exam LYMPHADENECTOMY SENTINEL PELVIC 02/12/2025 7:35 AM CDT Malignant Neoplasm Of Uterus (HCC) ROBOTIC-ASSISTED HYSTERECTOMY TOTAL ABDOMINAL 02/12/2025 7:35 AM CDT Malignant Neoplasm Of Uterus (HCC) documented in this encounter Results * [facility] Endometrial Carcinoma Panel, Next-Generation Sequencing, Tumor (02/12/2025 [...] 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 Please refer to Doormen. or call for more information. 03/05/2025 4:23 PM CDT DTL Additional Information CLINICAL TRIALS Possible clinical trials of benefit for this patient can be found at the following sites: 1) ClinicalTrials.gov: www.clinicaltrials. gov/ct2/search/adva nced 2) [facility]: www.[facility]/resear ch/clinical-trials/ 3) National Cancer [place]: www.cancer.gov/clin icaltrials/search 03/05/2025 4:23 PM CDT DTL Specimen Tissue, Tumor 03/05/2025 4:23 PM CDT DTL Tissue ID [id number] 03/05/2025 4:23 PM CDT DTL Method Microscopic [...] MLH1, MSH2, MSH6, NBN, PALB2, PMS2, POLE, PIH4X4K, and TP53. Variant nomenclature is based on build GRCh37 (hg19). For details about gene transcripts (RefSeq accession numbers), specific targeted regions of each gene, and additional information on this test, see www.[employer]. OneBuckResume (Test ID MCECP). 03/05/2025 4:23 PM CDT [...] MLH1, MSH2, MSH6, NBN, PALB2, PMS2, POLE, VTV1Z8K, and TP53 genes only. This test may [...] of heterozygosity) and sequencing artifact/misalignme nt [PMID: 14412180, PMID: 50878206]. Rare polymorphisms may be present that could [...] developed and its performance characteristics determined by [facility] in a manner consistent with CLIA requirements. [...] desired, surgical pathology consultation is available from [facility] ( ). MSI: Stable (KASSI) NO evidence of microsatellite instability was detected suggesting the presence of normal DNA mismatch repair function within the tumor. Current data suggest that advanced stage solid tumors with intact mismatch repair (KASSI) are less likely to be responsive to treatment with immunotherapies such as anti-PD-1 therapies [PMID 59282418, PMID 13317305]. However, lenvatinib in combination with pembrolizumab has been FDA-approved for patients with advanced endometrial carcinoma with intact mismatch repair (KASSI) and who have disease progression following prior systemic therapy but are not candidates for curative surgery or radiation [PMID: 77773802, PMID: 96805652]. 03/05/2025 4:23 PM CDT DTL Tissue (Uterus) 02/12/2025 1 0:56 AM CDT Abigail Rasmussen M.D. LAB GENETIC TESTING Final Result [facility] [place] [address] [place] [address], [facility] DTL [address] [place] [address] * Mismatch Repair (MMR) Protein Immunohistochemistry Only, [...] 03/03/2025 5:00 PM CDT DTL Tissue ID [id number] 03/03/2025 5:00 PM CDT DTL Released By [...] of protein expression by IHC (Mod Pathol. 2019;33(5):871-879 (PMID: 12784936)). THERAPEUTIC IMPLICATIONS Current data suggest that in advanced stage solid tumors, targeted immunotherapies such as anti-PD-1 therapies are more likely to be effective in mismatch repair-deficient tumors than in mismatch repair-proficient tumors (Science. 2017 May 05;357(0879):409- 413 (PMID 56787434); J Clin Oncol. 2018 Oct 28:[id number] (PMID 11541365)). For interpretation of therapeutic implications of these [...] developed and its performance characteristics determined by [facility] in a manner consistent with CLIA requirements. This test has not been cleared or approved by the U.S. Food and Drug Administration. Tissue (Uterus) 02/12/2025 1 0:56 AM CDT Abigail Rasmussen M.D. LAB GENETIC TESTING Final Result [facility] [place] [address] [place] [address], [facility] DTL [address] [place] [address] * Surgical Pathology, Frozen Lab (02/12/2025 10:13 [...] frozen and permanent sections. Grossed by SAV Palafox, ROSY (ASCP). B. Received fresh labeled uterus and [...] from the mass, on the anterior endometrium. Chief Airport Guide tissue submitted for frozen and permanent sections. Grossed by SAV Palafox, ROSY ([facility]). Entire mass is submitted on 02/17/2025 by Ayala Rocha M.S., PA([facility]). 02/18/2025 3:13 PM CDT METH Block Summary [...] molecular profile (NSMP/copy number-low) Comment: For full MCECP report, please refer to Case #[id number]. Test results for (IHC or SWEETIE) testing are valid for specimens fixed between 6 and 72 hours. Delay to fixation, under fixation or over fixation fall outside of guidelines and may affect these results. The following test(s) will be performed in the Genomics Laboratory: [facility] Endometrial Panel ([facility]) MMR Protein, IHC Only, Tumor (IHC) Results [...] Pelvic Nodes Examined: 2 Number of Pelvic Lacombe Nodes Examined: 2 Total Number of Para-aortic Nodes Examined: 0 Total Number of Para-aortic Lacombe Nodes Examined: 0 Distant Metastasis: Not applicable [...] SURG PATH ORDERABLES Edited Result - Final [facility] [place] [address] [place] [address], [facility] METH [address] [place] [address] * Cytology Non-STRAP CUTTING MACHINE OPERATOR (02/12/2025 9:35 AM CDT) 02/13/2025 3:22 PM [...] PATH ORDERABLES Final Result Performing Organization Address [facility]/ZIP Co de Phone Number [address] [address], [facility] DTL [address] [place] [address] * [facility] Research, Blood (02/12/2025 8:00 AM CDT) Number of Specimens 5 02/12/2025 8:00 AM CDT HSS Blood (Blood, Venous) 02/12/2025 8:00 AM CDT 02/12/2025 8:00 AM CDT us Justyn Cruz M.D. LAB RESEARCH NO RESULT ROUTING Final Result Performing Organization Address [facility] Co de Phone Number [address] [address], [facility] HSS [address] [address] documented in this encounter Visit Diagnoses Diagnosis Malignant Neoplasm Of Uterus (HCC)- Primary Clinical Research Exam Malignant Neoplasm Of Uterus (HCC) documented in this encounter Admitting Diagnoses Diagnosis [...] Given 02/12/2025 7:45 AM CDT 32 mg BUPivacaine 0.5 % (5 mg/mL) injection (Marcaine) As needed, Starting on Mon02/12/25 at 1145, Intra-Op Given 02/12/2025 11:45 AM CDT 30 mL D5W infusion 1-999 mL/hr, intravenous, As needed, [...] FLUoxetine tablet/capsule Given 02/13/2025 9:53 AM CDT 8 0 mg ketorolac injection 15 mg (ToradoL) 15 [...] hours, First dose (after last modification) on Mon02/13/25 at 0230, not to exceed 4 grams in 24 hours. 0142 (Given - Provid er: Melanie Mccormick R.N.)0734 (Given - Provider: Justyn Carpio R.N.) aprepitant [...] Prophylaxis, surgical 0853 (Given - Provider: Suzanna Hernández, RADIOGRAPHIC TECHNOLOGIST, MANAGER ORANGE, DNAP) FLUoxetine capsule 80 mg (PROzac) 80 mg, oral, Daily, First dose on Mon02/13/25 at 0900, FLUoxetine orderable was interchanged for FLUoxetine tablet/capsule 0953 (Given - Provid er: Justyn Carpio R.N.) gabapentin capsule 200 mg (Neurontin) 200 mg, oral, Daily at bedtime, First dose on Mon02/13/25 at 2100 heparin (porcine) injection 5,000 Units (COMPLETED) 5,000 Units, subcutaneous, Once, On Mon02/12/25 at 0815, For 1 dose, Intra-Op, Administer prior to induction of anesthesia. 0834 (Given - Provider: Suzanna Hernández APRN, MANAGER ORANGE, DNAP - Comment: SQ Abdomen, LLQ) ibuprofen [...] additional analgesic benefit. 1744 (Given - Provider: Abigail Marquez M.S.NChava, R.N.)2303 (Given - Provider: Melanie Mccormick R.N.) 0435 (Given - Provider: Melanie Mccormick R.N.)1130 (Due) rosuvastatin tablet 10 mg (Crestor) 10 mg, oral, Daily, First dose on Jennifer 02/13/25 at 0900 0953 (Given - Provid er: Justyn Carpio R.N.) sodium chloride 0.9 % injection 3 mL [...] 1600 1614 (Continued from OR - Provider: Abigail Marquez M.S.NChava, R.N.)1740 (New Bag - Provider: Abigail Marquez M.S.NChava, R.N.)2043 (New Bag - Provider: Melanie Mccormick [...] prochlorperazine). 2036 (Given - Provider: Melanie Mccormick R.N.) 0743 (Given - Provider: Justyn Carpio R.N.) oxyCODONE IR tablet 10 mg (Roxicodone)(Linked Group [...] (only) 1337 (Given - Provider: Erick Reyes R.N.) oxyCODONE IR tablet 5 mg (Roxicodone)(Linked Group [...] or score 4-6 of 10, Starting on 02/12/25 at 1535, Administer if pain is unrelieved by acetaminophen. For patients that received intrathecal analgesia, start 24 hours after intrathecal dose given. Or oxyCODONE IR tablet 10 mg (Roxicodone)Jump to med 10 mg, oral, Every 4 hours PRN, severe pain or score 7-10 of 10, Starting on 02/12/25 at 1535, Administer if pain is unrelieved by acetaminophen. For patients that received intrathecal analgesia, start 24 hours after intrathecal dose given. documented in this encounter Care Teams Administration Dean Relationship Specialty Start Date End Date Elsewhere, Pcp PCP - General Internal Medicine 09/11/23 documented as of this encounter
--- OUTSIDE RECORDS SUMMARY | 2025-02-12 08:05 | XMS_ITS | Encounter Summary ---
Author Organization [facility] Address [address] [place] [id number] Care Team Providers Care Hse Specialist Name Role Phone Elsewhere, Pcp Primary Care Provider Unavailabl e Encounter Details Date Type Department Care Team (Late st Contact Info) Description 02/12/2025 8:05 AM CDT Anesthesia Event [facility] [address] [place] [phone] Cassandra Davenport M.D. [address] [place] [phone] Suzanna Hernández APRN, BLU, DNAP [address] [place] [phone] Anesthesia Record Procedure Summary Procedure Name Responsible Anesthesiologist Anesthesia Start Time Anesthesia Stop Time ROBOTIC-ASSISTED HYSTERECTOMY TOTAL ABDOMINAL. Cassandra Davenport M.D. 02/12/25 0805 02/12/25 1221 Events Date Time Event Comment 02/12/2025 0745 0805 An Start Machine/Equipme nt Checked Infection Precautions Followed Procedure/Site Verified NPO Status Verified Supine Standard ASA Monitors Applied 0814 An Induction 0818 An Intubation 0819 Turnover to Proceduralist 0834 an trey now 0901 Anes CS Handoff I, Suzanna cage APRN, MACHINE TOOL REBUILDER, DNAP, attest that I have reconciled the controlled substances and that I have reviewed all the significant information with the next anesthesia provider assuming care of this patient. 0902 Proc Start 0922 Anes CS Handoff I, April B enson, RIVER BOAT CAPTAIN, MACHINE TOOL REBUILDER, MNA, attest that I have reconciled the controlled substances and that I have reviewed all the significant information with the next anesthesia provider assuming care of this patient. 1132 Anes CS Handoff I, Suzanna Mekhi cage, RIVER BOAT CAPTAIN, MACHINE TOOL REBUILDER, DNAP, attest that I have reconciled the controlled substances and that I have reviewed all the significant information with the next anesthesia provider assuming care of this patient. 1159 Turnover to ANE Staff 1200 Proc Fin 1209 Airway Removal Criteria Met 1209 Extubation/Airway Removed 1210 an stop data 1221 An End I completed my handoff to the receiving staff during which we 1. Identified the patient 2. Identified the responsible provider 3. Reviewed the pertinent medical history 4. Discussed the surgical course 5. Reviewed intra-op anesthesia management and issues during anesthesia 6. Set expectations for post-procedure period 7. Allowed opportunity for questions and acknowledgement of understanding. Meds Name Total fentanyl injection 50 mcg/mL 250 mcg lidocaine 2% (mg) injection 60 mg rocuronium 10 mg/mL injection 150 mg phenylephrine 100 mcg/mL injection 400 m cg ondansetron 4 mg/2 mL injection 4 mg sugammadex 100 mg/mL injection 200 mg propofol 10 mg/mL infusion 2,889.06 mg propofol 10 mg/mL injection 190 mg dexAMETHasone (Decadron) injection 4 mg/ mL 8 mg heparin (porcine) injection 5,000 Units 5,000 Units ceFAZolin injection 2,000 mg (Ancef) 2 g HYDROmorphone (Dilaudid) PF injection 2 mg/mL 0.6 mg ketorolac (ToradoL) injection 15 mg/mL 1 5 mg Lactated Ringers Free Drip 1,700 mL * Agents No agents on file. * Blood No blood administrations on file. Lines, Drains, and Airways Type Details Placement Removal Scope Sites Abdomen; 1; Umbilicu s; 2; Umbilicus, Lower; 3; Right; 4; Left; Steristrips and Primapore 12/13/24 1447 by Scope Sites 02/12/25; Abdomen; 1 ; Medial, Mid; 2; Right; 3; Right, Distal; 4; Left, Upper; 5; Left, Lower 02/12/25 0000 by Prashant King Ed.D., M.A., R.N. Indwelling Urinary Catheter Placement Date: 02/12/25; Size: 16 Fr.; Balloon Size: 10 mL (10ml in); Urine Returned: Yes; Removal Date: 02/13/25; Removal Time: 532; Removal Reason: Per order 02/12/25 0000 by Prashant King Ed.D. M.AChava, R.NChava 02/13/25 0533 by Cata Machado Peripheral IV Placement Date: 05/02; Placement Time: 740; Catheter Size: 18 G; Orientation: Distal, Left, Lower, Posterior; Location: Forearm; Site Prep: Chlorhexidine (Preferred); Technique: Anatomical landmarks; Inserted by: pineda; Insertion Attempts: 1; Removal Date: 02/13/25; Removal Time: 105; Removal Reason: Patient discharged 02/12/25 0741 by Juliette Vital 02/13/25 1055 by Justyn Carpio, R.NChava ETT Placement Date: 05/02; Placement Time: 817 (created via procedure documentation); Mask Ventilation: Easy mask; Technique: Video laryngoscopy; Type: Standard ETT; Single Lumen Tube Size: 7 mm; Cuffed: Yes; Location: Oral; Grade View: Grade 2A; Insertion Attempts: 1; Placement Verification: Bilateral breath sounds, Positive ETCO2, Symmetrical chest wall movement; Removal Date: 02/12/25; Removal Time: 1209 02/12/25 0818 by Suzanna Hernández APRN, MACHINE TOOL REBUILDER, DNAP 02/12/25 1209 by April Gross APRN, MACHINE TOOL REBUILDER, MNA OPA/NPA Placement Date: 05/02; Placement Time: 914 (placed in OR); Non-Surgical Airway Device: Oral pharyngeal airway; Removal Date: 02/12/25; Removal Time: 1245 02/12/25 0915 by Erick Reyes, R.NChava 02/12/25 124 by Erick Reyes, R.N. documented in this encounter Social History Tobacco Use Types Packs/Day Years Used Date Smoking Tobacco: Never Passive Smoke Exposure: Never Smokeless Tobacco: Never Alcohol Use Standard Drinks/Week Comments Yes 2 (1 standard drink = 0.6 oz pur e alcohol) [facility] Utilities Answer Date Recorded In [...] money to buy more. Never true 02/14/20 Within the past 12 months, t he [...] your living situation today? I [place] place to live 02/13/2025 Comments No Sex and Gender Information Value Date Recorded Sex Assigned at Female 10/29/2023 4:34 PM HUMAN CAPITAL CONSULTANT Legal Sex Female 8:57 AM HUMAN CAPITAL CONSULTANT Gender Identity Female 10/29/2023 4:34 PM HUMAN CAPITAL CONSULTANT Sexual Orientation Straight 10/29/2023 4: 34 PM HUMAN CAPITAL CONSULTANT documented as of this encounter OR Notes * Anesthesia Postprocedure Evaluation - Cassandra Davenport M.D. - 02/12/2025 1:30 PM CDT Patient: Martha Elizabeth Postlethwaite Procedure Summary Date: 02/12/25 Room / Location: [address] Formerly [facility] in [place], [place] Anesthesia Start: 08 Anesthesia Stop: 122 Procedures: ROBOTIC-ASSISTED HYSTERECTOMY TOTAL ABDOMINAL. LYMPHADENECTOMY SENTINEL PELVIC. (Left) Diagnosis: Malignant Neoplasm Of Uterus (HCC) (Malignant Neoplasm Uterus (HCC) [C55].) Providers: Abigail Rasmussen M.D. Responsible Provider: Cassandra Davenport M.D. Anesthesia Type: general ASA Status: 3 Anesthesia Type: general Last vitals Vitals Value Taken Time BP 115/62 02/12/25 13:15 Temp 36.6 ??C 02/12/25 12:19 Pulse 83 02/12/25 13:29 Resp 15 02/12/25 13:29 SpO2 94 % 02/12/25 13:29 Vitals shown include unfiled device data. Please reference Vitals flowsheet for most recent vital signs. Anesthesia Post Evaluation Patient Disposition: dismissal Cardiovascular status: hemodynamics (HR & BP) acceptable Respiratory status: patent airway with spontaneous effort Temperature: normothermic Oxygen requirements: room air Level of consciousness: awake Pain score: pain adequately controlled and/or at baseline Post Op nausea/vomiting: none Hydration status: euvolemic Notable Events No notable events documented. * Anesthesia Procedure Notes - Suzanna Hernández, RIVER BOAT CAPTAIN, MACHINE TOOL REBUILDER, DNAP - 02/12/2025 8:42 AM CDTAssociated Order(s): Airway Airway Date/Time: 02/12/2025 8:18 AM Performed by: Suzanna Hernández APRN, CRNA, DNAP Authorized by: Cassandra Davenport M.D. Patient location during procedure: OR / Procedure Area PROCEDURE DETAILS: Mask difficulty assessment: easy mask Final airway type: video laryngoscope Laryngeal Manipulation: no Final best view of glottic structures - Cormack/Lehane Score: grade 2A ETT location: oral VL device: glide scope [place] scope blade size: 3 Tube size: 7 ETT distance at teeth/gum: 22 Oral tube type: standard ETT Cuffed: yes Leak Test Performed: no Number of attempt to successful placement: 1 Airway confirmation: bilateral breath sounds, positive ETCO2 and bilateral chest rise Other previous techniques attempted: none PRE PROCEDURE DETAILS: Pre evaluation for airway management: procedure Urgency: elective Preop assessment of probable difficulty: questionable / suspicious difficult airway Preoxygenation: bag valve mask SEDATION / ANESTHESIA Anesthesia method: anesthesia POST PROCEDURE DETAILS: Procedure outcome: successful Notable Events: no complications * Anesthesia Preprocedure Evaluation - Cassandra Davenport M.D. - 02/12/2025 7:44 AM CDT Preprocedure Anesthesia & H&P Assessment Procedure Summary Date/Time: 02/12/25 0715 Procedures: ROBOTIC-ASSISTED HYSTERECTOMY TOTAL ABDOMINAL. LYMPHADENECTOMY SENTINEL PELVIC. (Bilateral) Diagnosis: Malignant Neoplasm Of Uterus (HCC) [C55] Pre-op diagnosis: Malignant Neoplasm Uterus (HCC) [C55]. Location: [address] Formerly [facility] / [facility] in [place], [place] Providers: Abigail Rasmussen M.D. Pertinent components of the patient's history including current problem list, medical history, surgical history, family history, social history, medications and allergies were reviewed. Present illness and pre-op diagnosis were confirmed. The planned surgery / procedure was verified with the patient / legal guardian. The patient's general health condition remains unchanged RELEVANT COMORBID CONDITIONS CV (+) Hypertension Essential Primary ENDO (+) Nodule Thyroid NEURO (+) Deficiency Vitamin B12 GI (+) Gastroesophageal Reflux Disease Without Esophagitis OBJECTIVE PHYSICAL EXAMINATION Airway (HEENT) Mallampati: III TM Distance: <3 FB Neck ROM: Full Mouth Opening: <3 cm Facies (pediatrics): normal Cardiovascular Rhythm: Regular Cardiovascular Assessment: cardiovascular normal Functional Capacity: >4 METS Pulmonary Pulmonary Assessment: Clear General / Constitutional Constitutional Assessment: Overweight General State of Health:: calm Neurological Neurologic Assessment: alert Dental Dental Assessment: dentition intact ASSESSMENT / PLAN ANESTHESIA PLAN ASA: 3 Anesthesia Plan: general Patient seen and allergies reviewed, anesthesia plan and risks discussed directly with patient /legal guardian or through an chronometer repairer. The use of blood products not discussed Approval to Proceed: approved for anesthesia documented in this encounter Plan of Treatment Upcoming Encounters Date Type Department Care Team (Late st Contact Info) Description 03/19/2025 11:30 AM CDT Office Visit Department of Obstetrics and Gynecology, Division of Gynecologic Oncology in [place], [place] [address] [place] [phone] Stephanie Clay APRN, C.N.P. [address] [place] [phone] documented as of this encounter Procedures Procedure Name Priority Date/Time Associated Diagnosis Comments LDA ANE ENDOTRACHEAL AIRWAY Routine 02/12/2025 8:18 AM CDT documented in this encounter Results * LDA ANE ENDOTRACHEAL AIRWAY (02/12/2025 8:18 AM CDT) Narrative Suzanna Hernández APRN, CRNA, DNAVandana - 02/12/2025 8:18 AM CDT Suzanna Hernández APRN, CRNA, DNAVandana 02/12/2025 8:42 AM Airway Date/Time: 02/12/2025 8:18 AM Performed by: Suzanna Hernández APRN, CRNA DNAP Authorized by: Cassandra Davenport M.D. Patient location during procedure: OR / Procedure Area PROCEDURE DETAILS: Mask difficulty assessment: easy mask Final airway type: video laryngoscope Laryngeal Manipulation: no Final best view of glottic structures - Cormack/Lehane Score: grade 2A ETT location: oral VL device: glide scope [place] scope blade size: 3 Tube size: 7 ETT distance at teeth/gum: 22 Oral tube type: standard ETT Cuffed: yes Leak Test Performed: no Number of attempt to successful placement: 1 Airway confirmation: bilateral breath sounds, positive ETCO2 and bilateral chest rise Other previous techniques attempted: none PRE PROCEDURE DETAILS: Pre evaluation for airway management: procedure Urgency: elective Preop assessment of probable difficulty: questionable / suspicious difficult airway Preoxygenation: bag valve mask SEDATION / ANESTHESIA Anesthesia method: anesthesia POST PROCEDURE DETAILS: Procedure outcome: successful Notable Events: no complications Cassandra Davenport M.D. ANESTHESIA ORDERABLES Final Re sult documented in this encounter Visit Diagnoses Not on filedocumented in this encounter Administered Medications Inactive Administered Medications - up to 3 most recent administrations Medication Order MAR Action Action Date Dose Rate Site ceFAZolin injection 2,000 mg (Ancef) 2,000 mg (rounded from 2,675 mg = [...] indication and drug clearance factors., Indications: Prophylaxis, surgicalIndications:Prophylaxis, surgical Given 02/12/2025 8:53 AM CDT 2 g dexAMETHasone injection (Decadron) intravenous, As needed, Starting on Mon02/12/25 at 0839, Anesthesia Intra-op Given 02/12/2025 8:39 AM CDT 8 mg fentaNYL injection (Sublimaze) intravenous, As needed, Starting on Mon02/12/25 at 0814, Anesthesia Intra-op Given 02/12/2025 11:10 AM CDT 50 mcg Given 02/12/2025 10:37 AM CDT 50 mcg Given 02/12/2025 9:11 AM CDT 50 mcg heparin (porcine) injection 5,000 Units 5,000 Units, subcutaneous, Once, On Mon02/12/25 at 0815, For 1 dose, Intra-Op, Administer prior to induction of anesthesia. Given 02/12/2025 8:34 AM CDT 5,000 Units HYDROmorphone (PF) injection (Dilaudid) intravenous, As needed, Starting on Mon02/12/25 at 0940, Anesthesia Intra-op Given 02/12/2025 10:37 AM CDT 0.2 mg Given 02/12/2025 9:40 AM CDT 0.4 mg ketorolac injection (ToradoL) intravenous, As needed, Starting on Mon02/12/25 at 1141, Anesthesia Intra-op Given 02/12/2025 11:41 AM CDT 15 mg Lactated Ringer's intravenous, Continuous Infusion: Per Instructions PRN, Starting on Mon02/12/25 at 0811, Anesthesia Intra-op New Bag 02/12/2025 8:52 AM CDT New Bag 02/12/2025 8:11 AM CDT lidocaine (PF) (cardiac) injection intravenous, As needed, Starting on Mon02/12/25 at 0814, Anesthesia Intra-op Given 02/12/2025 8:14 AM CDT 60 mg ondansetron (PF) injection (Zofran) intravenous, As needed, Starting on Mon02/12/25 at 1050, Anesthesia Intra-op Given 02/12/2025 10:50 AM CDT 4 mg phenylephrine injection intravenous, As needed, Starting on Mon02/12/25 at 0835, Anesthesia Intra-op Given 02/12/2025 8:53 AM CDT 200 mcg Given 02/12/2025 8:43 AM CDT 100 mcg Given 02/12/2025 8:35 AM CDT 100 mcg propofol 10 mg/mL infusion (Diprivan) intravenous, Continuous Infusion: Per Instructions PRN, Starting on Mon02/12/25 at 0815, Anesthesia Intra-op Rate/Dose Change 02/12/2025 11:41 AM CDT 75 mcg/kg/min 49.32 mL/hr Rate/Dose Change 02/12/2025 11:11 AM CDT 115 mcg/kg/min 75 .624 mL/hr Rate/Dose Change 02/12/2025 9:50 AM CDT 125 mcg/kg/min 82. 2 mL/hr propofoL injection (Diprivan) intravenous, As needed, Starting on Mon02/12/25 at 0815, Anesthesia Intra-op Given 02/12/2025 9:12 AM CDT 50 mg Given 02/12/2025 8:15 AM CDT 140 mg rocuronium injection (Zemuron) intravenous, As needed, Starting on Mon02/12/25 at 0816, Anesthesia Intra-op Given 02/12/2025 11:29 AM CDT 10 mg Given 02/12/2025 10:28 AM CDT 20 mg Given 02/12/2025 9:53 AM CDT 20 mg sugammadex injection (Bridion) intravenous, As needed, Starting on Mon02/12/25 at 1159, Anesthesia Intra-op Given 02/12/2025 11:59 AM CDT 200 mg documented in this encounter Care Teams Hse Specialist Relationship Specialty Start Date End Date Elsewhere, Pcp PCP - General Internal Medicine 09/11/23 documented as of this encounter
[2025-03-18] VITALS (13 sets, daily range): BP systolic 123–165; BP diastolic 67–86; PULSE 66–82; RESP 15–20; TEMP 36.7–36.8; O2SAT 93–98; BMI 40.8
--- OUTSIDE RECORDS SUMMARY | 2025-03-18 17:32 | XMS_ITS | Encounter Summary ---
Author Organization [facility] Address [address] [place] [address] Care Team Providers Care Mail Processing Machine Operator Name Role Phone Elsewhere, Pcp Primary Care Provider Unavailabl e Encounter Details Date Type Department Care Team (Late st Contact Info) Description 02/18/2025 Clinical Communication Department of Obstetrics and Gynecology, Division of Gynecologic Oncology in [place], [place] [address] [place] [phone] Abigail Rasmussen M.D. [address] [place] [phone] Social History Tobacco Use Types Packs/Day Years Used Date Smoking Tobacco: Never Passive Smoke Exposure: Never Smokeless Tobacco: Never Alcohol Use Standard Drinks/Week Comments Yes 2 (1 standard drink = 0.6 oz pur e alcohol) [facility] Utilities Answer Date Recorded In the past 12 months has e charity: water, gas, oil, or water [employer] threatened to shut off services in your [...] your living situation today? 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 - 02/18/2025 6:02 PM CDT Called patient in follow-up. She reports that her nausea and dizziness have resolved. Her cold symptoms are improving. We reviewed pathology that showed a FIGO grade 1 tumor with no myoinvasion and no LVSI. [place] nodes were negative. She will plan on having her 6 week post-op in [place], then may have her surveillance in [place]. Answered all questions. Abigail Rasmussen M.D. documented in this encounter Plan of Treatment Upcoming Encounters Date Type Department Care Team (Late st Contact Info) Description 03/19/2025 11:30 AM CDT Office Visit Department of Obstetrics and Gynecology, Division of Gynecologic Oncology in [place], [place] [address] [place] [phone] Stephanie Clay, MINISTERIO, C.N.P. [address] [place] [phone] documented as of this encounter Visit Diagnoses Not on filedocumented in this encounter Care Teams Mail Processing Machine Operator Relationship Specialty Start Date End Date Elsewhere, Pcp PCP - General Internal Medicine 09/11/23 documented as of this encounter
--- OUTSIDE RECORDS SUMMARY | 2025-03-18 17:32 | XMS_ITS ---
Author Organization [facility] Address [address] [place] [address] Care Team Providers Care Printing Plate Clerk Name Role Phone Elsewhere, Pcp Primary Care [...]
--- OUTSIDE RECORDS SUMMARY | 2025-03-18 17:32 | XMS_ITS | Encounter Summary ---
Author Organization [facility] Address [address] [place] [address] Care Team Providers Care Newspaper Reporter Name Role Phone Elsewhere, Pcp Primary Care Provider Unavailabl e Encounter Details Date Type Department Care Team (Late st Contact Info) Description 02/13/2025 Clinical Communication Department of Obstetrics and Gynecology, Division of Gynecologic Oncology in [place], [place] [address] [place] [address] Tim Bailey M.D., M.P.H. [address] [place] [phone] Social History Tobacco Use Types Packs/Day Years Used Date Smoking Tobacco: Never Passive Smoke Exposure: Never Smokeless Tobacco: Never Alcohol Use Standard Drinks/Week Comments Yes 2 (1 standard drink = 0.6 oz pur e alcohol) [facility] Utilities Answer Date Recorded In the past 12 months has [employer], gas, oil, or water [employer] threatened to shut off services in your [...] your living situation today? I have a [facility] place to live 02/13/2025 Comments No Sex and Gender Information Value Date Recorded Sex Assigned at Female 10/29/2023 4:34 PM POWER CHISEL OPERATOR Legal Sex Female 8:57 AM POWER CHISEL OPERATOR Gender Identity Female 10/29/2023 4:34 PM POWER CHISEL OPERATOR Sexual Orientation Straight 10/29/2023 4: 34 PM POWER CHISEL OPERATOR documented as of this encounter Miscellaneous Notes * Telephone Encounter - Chely Rogers M.D., M.S. - 02/14/2025 7:33 PM CDT Contacted the patient this morning to follow-up. Late entry note due to patient care. Patient went to her local ED for evaluation. She endorsed that she was admitted overnight and was currently in the hospital. The hospitalist caring for her at her local hospital was in the room when I called therefore I was able to talk directly to the hospitalist. The physician noted that workup in the emergency department including CT chest abdomen pelvis and labs were negative for any acute postoperative complications. No workup identified a cause for her symptoms of dizziness, nausea, vomiting. At this time they believe it is postoperative nausea and vomiting related to anesthesia. They opted to admit her overnight for additional testing specifically cardiac testing. We thanked them fortheir care of the patient and told them we were available if there are any concerns regarding postoperative complications or if we can assist in any way. Discussed with Dr. Rasmussen. Chely Rogers M.D., M.S. Harmonic Analyst Onc Fellow * Telephone Encounter - Tim Bailey M.D., [...] and Gynecology, Division of Gynecologic Oncology in [place], [place] [address] [place] [phone] Stephanie Clay, CUSTOM FURRIER, C.N.P. [address] [place] [address] documented as of this encounter Visit Diagnoses Not on filedocumented in this encounter Care Teams Newspaper Reporter Relationship Specialty Start Date End Date Elsewhere, Pcp PCP - General Internal Medicine 09/11/23 documented as of this encounter
--- OUTSIDE RECORDS SUMMARY | 2025-03-18 17:32 | XMS_ITS | Clinical Summary ---
Author Organization [facility] Address [address] [place] [address] Care Team Providers Care Debt Counselor Name Role Phone Unavailable Primary Care Provider [...]
--- OUTSIDE RECORDS SUMMARY | 2025-03-18 17:32 | XMS_ITS | Clinical Summary ---
Author Organization [facility] Address [address] [place] [address] Care Team Providers Care Egg Buyer Name Role Phone Wandy Sterilng MD Primary Care Provide r Allergies Active [...] 21 10/14/2021 S/P knee replacement 03/28/2011 011 [facility] (current) use of anticoagulants 03/22/2011 08/16/2011 Overview (03/22/2011): INR Goal Range: 1.5 - 2.5 Encounters Date Type Department Care Team Description 03/18/2025 Nurse Triage [facility] [address] [place] [address] Wandy Sterling MD Chest Pain 03/13/2025 9:45 AM CDT Telemedicine [facility] [address] [place] [phone] Milena Ramirez, PhD, LP Individual Therapy 03/06/2025 9:45 AM CDT Telemedicine [facility] [address] [place] [phone] Milena Ramirez, PhD, LP Trmt Plan 02/21/2025 9:45 AM CDT Telemedicine [facility] [address] [place] [phone] Milena Ramirez, PhD, LP Individual Therapy 02/14/2025 Orders Only [facility] Scanner 1 scan: (1-Ord) [facility] , ABDOMEN PELVIS W CON , 02/14/2025 02/14/2025 Orders Only [facility] Scanner 1 scan: (1-Ord) [facility], ANGIO CHEST PE PROTOCOL , 02/14/2025 02/13/2025 Orders Only [facility] Scanner 1 scan: (1-Ord) [facility], HEAD/BRAIN WO CON , 02/13/2025 02/13/2025 Orders Only [facility] Scanner 1 scan: (1-Ord) [facility], CHEST 1V PORTABLE , 02/13/2025 02/07/2025 9:45 AM CDT Telemedicine [facility] [address] [facility] [place] [phone] Milena Ramirez, PhD, LP Individual Therapy 01/24/2025 9:45 AM CDT Telemedicine [facility] [address] [place] [phone] Milena Ramirez, PhD, LP Individual Therapy 01/17/2025 9:45 AM CDT Telemedicine [facility] [address] [place] [phone] Milena Ramirez, PhD, LP Individual Therapy 01/10/2025 10:30 AM CDT Telemedicine [facility] [address] [place] [phone] Milena Ramirez, PhD, LP Individual Therapy 12/27/2024 9:45 AM CDT Telemedicine [facility] [address] [place] [phone] Milena Ramirez, PhD, LP Individual Therapy 12/25/2024 Telephone [facility] [address] [facility] [address] Wandy Sterling MD Results (Pathology [facility]); Follow Up 12/20/2024 9:45 AM CDT Telemedicine [facility] [address] [place] [phone] Milena Ramirez, PhD, LP Individual Therapy from Last 3 Months Immunizations Immunization Administration [...] Cancer-breast Mother Sanya age 70's Stroke Mother Sanya Osteoporosis Sister [...] on file Legal Sex Female 5:24 AM ELECTRIC RAZOR MECHANIC Gender Identity Not on file Sexual Orientation [...] Comments Blood Pressure 106/71 10/31/2024 10:12 AM ELECTRIC RAZOR MECHANIC Pulse 72 10/31/2024 10:12 AM ELECTRIC RAZOR MECHANIC Temperature 36.4 C (97.5 F) 09/13/2023 5:15 PM ELECTRIC RAZOR MECHANIC Respiratory Rate 18 09/13/2023 6:15 PM ELECTRIC RAZOR MECHANIC Oxygen Saturation 95% 10/31/2024 10:12 AM ELECTRIC RAZOR MECHANIC Inhaled Oxygen Concentration - - Weight 108 kg (238 lb) 10/31/2024 10:12 AM ELECTRIC RAZOR MECHANIC Height 165.1 cm (5' 5) 10/31/2024 10:12 AM ELECTRIC RAZOR MECHANIC Body Mass Index 39.61 10/31/2024 10:12 AM ELECTRIC RAZOR MECHANIC Plan of Treatment Upcoming Encounters Date Type Department Care Team (Late st Contact Info) Description 03/21/2025 9:45 AM CDT Telemedicine [facility] [address] [place] [phone] Milena Ramirez, PhD, LP [address] [place] [address] 03/26/2025 9:45 AM CDT Telemedicine [facility] [address] [facility] [place] [phone] Milena Ramirez, PhD, LP [address] [place] [address] 04/03/2025 9:45 AM CDT Telemedicine [facility] [address] [place] [phone] Milena Ramirez, PhD, LP [address] [address] Health Maintenance Due Date Last Done Comments RSV vaccine for adults or (1 - 1-dose 75+ series) 2025 COVID-19 vaccine series (2023- season) 2025 01/20/2025, 08/01/2024, 12/11/2023, Additional history exists BMI (ht and wt on same day) for age 18+ 10/31/2025 10/31/2024, 09/12/2024, 08/21/2023, Additional history exists Medicare Wellness for age 65+ 11/01/2025 10/31/2024, 10/20/2022, 10/14/2021, Additional history exists Depression screening for age 12+ 11/29/2025 11/29/2024, 11/22/2024, 11/14/2024, Additional history exists Tetanus booster 09/26/2027 09/26/2017, 12/06/2006 Colonoscopy through age 75 12/07/202812/07 (Completed outside of [facility]), 10/25/2018, 10/25/2018, Additional history exists Lipids for age 45-75 10/10/2029 10/10/2024, 03/25/2024, 10/20/2022, Additional history exists Pneumococcal series for age 50+ Completed 09/26/2017, 09/20/2016 Tdap Completed 09/26/2017, 12/06/2006 DEXA/DXA scan for age 65+ Completed 10/16/2017, Hepatitis C screening for age 18-79 Completed 10/10/2019 Zoster (shingles) series for age 50+ Completed 10/15/2022, 08/05/2022 Influenza Vaccine Completed 08/01/2024, , 06/28/2023, Additional history exists Hepatitis B series for 19+ Aged Out N o longer eligible based on patient's age to complete this topic Medical Devices Implanted Type Area Wire Sawyer Device Identifier Shelf Expiration Date Model / Serial / Lot Stent Uret [id number] Contour - [id number] Implanted:Qty: 1 on 08/23/2023 by Harsh Manzano MD at [facility] Left: Ureter [facility] 04/13/2026 [id number] / / [id number] Stent Uret [id number] Contour - [id number] Implanted:Qty: 1 on 09/13/2023 by Gilson Smith MD at [facility] Left: Ureter [facility] 03/28/2026 [id number] / / [id number] Procedures Procedure Name Priority Date/Time Associated Diagnosis Comments SCAN-CT INTERPRETATION 5 12:00 AM CDT SCAN-CT INTERPRETATION 5 12:00 AM CDT SCAN-CT INTERPRETATION 5 12:00 AM CDT SCAN-RADIOLOGY REPORT 02/13/2025 12:00 AM CDT LIPID PANEL W REFLEX MEASURED LDL Routine 10/10/2024 2:22 PM ELECTRIC RAZOR MECHANIC Hyperlipidemia, unspecified hyperlipidemia type ANTI HCV Routine 10/10/2019 1:15 PM ELECTRIC RAZOR MECHANIC Encounter for hepatitis C screening test for low risk patient COLONOSCOPY 10/25/2018 8:24 AM ELECTRIC RAZOR MECHANIC XR DXA BONE DENSITY 2 SITES AXIAL Routine 10/16/2017 2:26 PM ELECTRIC RAZOR MECHANIC Asymptomatic postmenopausal state from Last 3 Months or Most Recently Relevant to Health Maintenance Results * SCAN-CT INTERPRETATION (02/14/2025 12:00 AM CDT) Only the most recent of3 resultswithin the time period is included. Anatomical Region Laterality Modality Other us Scanner OTHER Final Result * SCAN-RADIOLOGY REPORT (02/13/2025 12:00 AM CDT) Anatomical Region Laterality Modality Other us Scanner OTHER Final Result * (ABNORMAL) LIPID PANEL W REFLEX MEASURED LDL (10/10/2024 2:22 PM ELECTRIC RAZOR MECHANIC) CHOLESTEROL, TOTAL 124 <200 mg/dL [facility] HDL CHOLESTEROL 43(L) > OR = 50 mg/dL [facility] TRIGLYCERIDES 140 <150 mg/dL [facility] LDL-CHOLESTEROL 59 mg/dL (calc) [facility] Comment: Reference range: <100 Desirable range <100 mg/dL for primary prevention; <70 mg/dL for patients with CHD or diabetic patients with > or = 2 CHD risk factors. LDL-C is now calculated using the Dimitry calculation, which is a validated novel method providing better accuracy than the Friedewald equation in the estimation of LDL-C. Myron UGALDE et al. NAZIA. 2013;310(19): 3818-0012 (http://education.Aspectiva/faq/FFQ332) CHOL/HDLC RATIO 2.9 <5.0 (calc) [facility] NON HDL CHOLESTEROL 81 <130 mg/dL (calc) [facility] Comment: For patients with diabetes plus 1 major ASCVD risk factor, treating to a non-HDL-C goal of <100 mg/dL (LDL-C of <70 mg/dL) is considered a therapeutic option. Blood BLOOD SPECIMEN / Unknown 10/10/2024 2:22 PM ELECTRIC RAZOR MECHANIC 10/10/2024 2:23 PM ELECTRIC RAZOR MECHANIC Wandy Sterling MD CHEMISTRY Final Result [employer] [facility] [address] [place] [address], [facility] [address] [place] [address] * ANTI HCV (10/10/2019 1:15 PM ELECTRIC RAZOR MECHANIC) Pathologist [facility] HEPATITIS C ANTIBODY Non-React macy Non-React macy 10/10/2019 7:34 PM ELECTRIC RAZOR MECHANIC [facility] Comment:Antibodies to HCV no t detected; does not exclude the possibility of exposure to HCV. Blood BLOOD SPECIMEN / Unknown Butterfly / Unknown 10/10/2019 1:15 PM ELECTRIC RAZOR MECHANIC 10/10/2019 1:15 PM ELECTRIC RAZOR MECHANIC us Wandy Sterling MD SEND OUTS Final Result [facility] [address] [place] [address], [place] * COLONOSCOPY (10/25/2018 8:24 AM ELECTRIC RAZOR MECHANIC) 10/25/2018 8:24 AM ELECTRIC RAZOR MECHANIC Narrative Transcriptions Myron Graham MD - 10/25/2018 9:08 AM CST Patient Name: Martha Brooks Procedure Date: 10/25/2018 Gender: Female Date of [...] candidate for conscious sedation. The Colon CF-H180AL [id number] was passed through the anus and advancedto [...] reponse to care. Please refer to the [facility] flowsheets and nursing notes for moderate sedation details. Total physician intraservice time was 21 minutes. Myron Graham MD 10/25/2018 9:08:09 AM This report has been signed electronically. Note Initiated On: 10/25/2018 8:24 AM Procedure Code(s): --- Professional --- 74245, Colonoscopy, flexible; with biopsy, single or multiple Diagnosis Code(s): --- Professional --- Z86.010, Personal history of colonicpolyps D12.3, Benign neoplasm of transverse colon (hepatic flexure or splenic flexure) D12.4, Benign neoplasm of descending colon Q43.8, Other specified congenitalmalformations of intestine CPT copyright 2017 [employer]. All rights reserved. The codes documented in this report are preliminary and upon lye machine operator reviewmay be revised to meet current compliance requirements. Scope In: 8:44:14 AM Scope Withdrawal Time 0 hours 12 minutes 25 seconds Scope Out: 9:03:35 AM us Myron Graham MD PROCEDURE ORD Final Res ult * (ABNORMAL) XR DXA BONE DENSITY 2 SITES AXIAL (10/16/2017 2:26 PM ELECTRIC RAZOR MECHANIC) Anatomical Region Laterality Modality Spine, HIPS, HIPL, HIPR Other Narrative 10/20/2017 4:29 PM ELECTRIC RAZOR MECHANIC Please see scanned document for results of this study. 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
--- OUTSIDE RECORDS SUMMARY | 2025-03-18 17:32 | XMS_ITS | Data Portability ---
Author Organization [place] [facility] Address [address] [place] [address] Care Team Providers Care Water Inspector Name Role Phone [facility] Referring Provider Assessment Encounter Date Assessment [...] (PROC ) No observ ation record ed. [email or web address] [facility] [address] [place], [place], [address], 09/10/2023 01:59:42 Result Notes None recorded. Problems Name Problem SNOMED Code Status Onset Date Resolution Date Notes Provider Name and Address Organization Details Recorded Time Kidney stone 85206267 Active 023 Harsh corbin MD, PHD [address] [facility],[address], [place], [address] , [facility] 08/18/2023 10:39:59 Problem Notes None recorded. Procedures Surgical History Date Name Laterality Status Provider Name and Address Organization Details Recorded Time 8 ureteroscopy completed [address] Jason [facility] 08/18/2023 09:39:35 Imaging Results None [...] Updated DateTime 08/18/2023 165.1 cm 38.6 kg/m2 639629.43 g [facility] 08/18/2023 09:37:16 Social History Question Answer Notes LastModified by Organizat ion Details LastModified Time Tobacco Smoking Status Never Smoker Radha Eren prasad [place] [facility] 08/18/2023 09:38:48 What Was The Date Of Your Most Recent Tobacco Screening? 08/18/2023 [email or web address] Information not available 08/18/2023 Sex: Unknown Functional Status Question Answer Note LastModified by Organization D etails LastModified Time What is your level of alcohol consumption? Moderate Information not available 08/18/2023 Mental Status None recorded. Family History Nothing Reported. Medical History Condition Response Diabetes N High Blood Pressure Y Kidney Stones Y High Cholesterol Y GERD/Acid Reflux Y Depression N Gynecological HistoryNo gynecological history recorded. Obstetrics History GPAL:G 0 P 0 0 0 0 Past Encounters Encounter ID Performer Location Encounter Start Date Encounter Closed Date Diagnosis/Indication Diagnosis SNOMED-CT Code Diagnosis ICD10 Code Diagnosis Note [id number] Harsh corbin MD, PHD [facility] [address] [place] [phone] 08/18/2023 09:21:11 08/28/2023 13:58:22 Kidney stone 36665485 N20.0 Health Concerns Section Related Observation LastModified by Organization Detai ls LastModified Time None Recorded Concern Status LastModified by Organization Details LastModified Time None Recorded Advance Directives Directive None Recorded Payers Insurance Date Sequence Insurance Name Policy Number Policy Melvin Covered Member ID Melvin Member ID Guarantor Name 10/03/2023 1 [place]: [employer] Martha L Postlethwaite [id number] Martha Postlethwaite 10/03/2023 2 [place] [id number] Martha L Postlethwaite [id number] Martha Postlethwaite Notes Date Note Type [...] HTN, MDD, stones (2007)PSH: 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
--- OUTSIDE RECORDS SUMMARY | 2025-03-18 17:32 | XMS_ITS | Clinical Summary ---
Author Organization [facility] Address [address] [place] [address] Care Team Providers Care Behavioral Modification Assistant Name Role Phone Elsewhere, Pcp Primary Care Provider Unavailabl e Source Comments Patient records contain information from all sites at [facility]. For routine questions regarding patient records, call [phone] during business hours, M-F 8:00 AM - 5:00 PM Central Time. Record requests for emergency care only can be directed to [phone] at any time.[facility] Allergies Active Allergy Reactions Criticality Noted Date Comments Shellfish Derived GI intolerance Low 08/01/2023 Medications * This document contains information received from the source organization and may not represent a complete record from that organization. cholecalcifero l (VITAMIN D3) 25 mcg (1,000 Unit) capsule Take 1 capsule by mouth daily. 2 Active FLUoxetine (PROzac) 40 mg capsule Take 80 mg by mouth daily. 3 Active lisinopriL (PRINIVIL,ZEST RIL) 40 mg tablet Take 40 mg by mouth daily. 3 Active rosuvastatin (CRESTOR) 10 mg tablet Take 10 mg by mouth daily. 3 Active triamterene-hy droCHLOROthiaz keila (MAXZIDE-25) 37.5-25 mg per tablet Take 1 tablet by mouth every morning. 3 Active gabapentin (NEURONTIN) 100 mg capsule Take 200 mg by mouth at bedtime. 3 Active famotidine (PEPCID) 10 mg tablet Take 10 mg by mouth 2 (two) times a day as needed for heartburn or indigestion. Active cyanocobalamin (VITAMIN B12) 500 mcg SL tablet Dissolve 1,000 mcg in the mouth daily. Active sennosides-doc usate sodium (Senokot-S) 8.6-50 mg per tablet Take 1 tablet by mouth 2 (two) times a day as needed for constipation. While on narcotics. 5 Active acetaminophen (TylenoL) 500 mg tablet Take 2 tablets (1,000 mg total) by mouth every 6 (six) hours as needed for pain. Alternate with ibuprofen every 3 hours. Do not exceed 4000 mg or 4 g in 24 hours. 5 Active ibuprofen 200 mg tablet Take 3 tablets (600 mg total) by mouth every 6 (six) hours as needed for pain. Alternate with acetaminophen every 3 hours. 5 Active oxyCODONE (Roxicodone) 5 mg immediate release tabletIndicati ons:Acute Pain Take 1 tablet (5 mg total) by mouth every 6 (six) hours as needed for pain Indication: Acute Pain. Not relieved by over the counter pain medications. 10 tablet 02/12/2025 4:47 PM CDT 5 Active ondansetron (Zofran) 4 mg tabletIndicati ons:Malignant Neoplasm Of Uterus (HCC) Take 1 tablet (4 mg total) by mouth every 6 (six) hours as needed for nausea. 10 tablet 02/13/2025 9:57 AM CDT 5 Active Active Problems Problem Noted Date [...] organization. Date Type Department Care Team Description 02/18/2025 Clinical Communication Department of Obstetrics and Gynecology, Division of Gynecologic Oncology in [place], [place] [address] [place] [address] Abigail Rasmussen M.D. 02/13/2025 Clinical Communication Department of Obstetrics and Gynecology, Division of Gynecologic Oncology in [place], [place] [address] [place] [address] Tim Bailey M.D., M.P.H. 02/13/2025 Results Follow-Up Department of Obstetrics and Gynecology, Division of Gynecologic Oncology in [place], [place] [address] [place] [address] Abigail Rasmussen M.D. Cytology Non-ELECTRICAL ACCESSORIES II ASSEMBLER, Surgical Pathology, Frozen Lab, Mismatch Repair (MMR) Protein Immunohistochemistry Only, Tumor, [facility] [place] Endometrial Carcinoma Panel, Next-Generation Sequencing, Tumor 02/12/2025 8:05 AM CDT Anesthesia Event [facility] OR [address] [place] [address] Cassandra Davenport M.D. Suzanna Hernández, MINISTERIO, SUPERVISOR ASSEMBLY, DNAP 02/12/2025 7:15 AM CDT - 02/12/2025 12:27 PM CDT Surgery [facility] [address] [place] [address] Abigail Rasmussen M.D. ROBOTIC-ASSISTED HYSTERECTOMY TOTAL ABDOMINAL. 02/12/2025 5:54 AM CDT - 02/13/2025 11:34 AM CDT Hospital Encounter [facility], [facility], Fifth Floor [address] [place] [address] Abigail Rasmussen M.D. Clinical Research Exam; Malignant Neoplasm Of Uterus (HCC) Discharge Disposition: Home or Self Care 01/21/2025 9:30 AM CDT Office Visit Department of Family Medicine, [facility], in [place], [place] [address] [place] [address] Nataly Ferraro APRN, C.N.P., D.N.P. Infection Wound Postoperative Initial (Primary Dx); Preoperative Exam 12/27/2024 2:30 PM CDT Comprehensive Visit Department of Obstetrics and Gynecology, Division of Gynecologic Oncology in [place], [place] [address] [place] [address] Abigail Rasmussne M.D. Cancer Uterus Endometrial Personal History 12/24/2024 Results Follow-Up Department of Obstetrics and Gynecology in [place], [place] [address] [place] [address] Jayy Miller M.D. Surgical Pathology, Frozen Lab from Last 3 Months Immunizations Immunization Administration [...] drink = 0.6 oz pur e alcohol) [facility] Utilities Answer Date Recorded In the past 12 months has e electric, gas, oil, or water [employer] threatened to shut off services in your [...] your living situation today? I have a [facility] place to live 02/13/2025 Comments No Sex and Gender Information Value Date Recorded Sex Assigned at Female 10/29/2023 4:34 PM HEALTH AND SAFETY TECHNICIAN Legal Sex Female 8:57 AM HEALTH AND SAFETY TECHNICIAN Gender Identity Female 10/29/2023 4:34 PM HEALTH AND SAFETY TECHNICIAN Sexual Orientation Straight 10/29/2023 4: 34 PM HEALTH AND SAFETY TECHNICIAN Last Filed Vital Signs Vital Sign Reading [...] 02/12/2025 7:16 AM CDT Plan of Treatment Upcoming Encounters Date Type Department Care Team (Late st Contact Info) Description 03/19/2025 11:30 AM CDT Office Visit Department of Obstetrics and Gynecology, Division of Gynecologic Oncology in [place], [place] [address] [place] [address] Stephanie Clay, COMPUTER ARTIST, C.N.P. [address] [place] [address] Health Maintenance Due Date Last Done Comments [...] this topic Medical Devices Implanted Type Area Range Management Specialist Device Identifier Shelf Expiration Date Model / Serial / Lot Hardware E.G. Pins/Screws/R ods Hardware e.g. pins/screws/ rods Right: Wrist Description:Oct 2023 Knee Implant Knee Implant Bilateral : Knee Description:2010 & 2021 Ocular Lens Ocular Lens Bilateral : Eye Explanted Type Area Range Management Specialist Device Identifier Shelf Expiration Date Model [...] CDT Malignant Neoplasm Of Uterus (HCC) CYTOLOGY NON-ELECTRICAL ACCESSORIES II ASSEMBLER Routine 02/12/2025 9:35 AM CDT Malignant Neoplasm [...] 10:06 AM CDT Infection Wound Postoperative Initial BASIC METABOLIC PANEL, S/P Routine 11/08/2024 12:33 PM HEALTH AND SAFETY TECHNICIAN Preanesthetic Medical Exam BI BREAST DIAGNOSTIC BILATERAL WITH TOMOSYNTHESIS RAD - Routine (most inpatients and all outpatients) 01/09/2024 10:41 AM CDT Intra Abdominal And Pelvic Swelling Mass And Lump Unspecified Site Lump In The Left Breast Lower Inner Quadrant COLONOSCOPY Routine 12/04/2023 12:48 PM HEALTH AND SAFETY TECHNICIAN Polyp Colon Personal History HCV AB SCRN W/REFLEX TO HCV PCR, S Routine 11/10/2023 8:31 AM HEALTH AND SAFETY TECHNICIAN Weakness Leg Left 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 Please refer to [employer] or call for more information. 03/05/2025 4:23 PM CDT DTL Additional Information CLINICAL TRIALS Possible clinical trials of benefit for this patient can be found at the following sites: 1) ClinicalTrials.gov: www.clinicaltrials. gov/ct2/search/adva nced 2) [facility]: www.[facility]/resear ch/clinical-trials/ 3) National Cancer [place]: www.cancer.gov/clin icaltrials/search 03/05/2025 4:23 PM CDT DTL Specimen Tissue, Tumor 03/05/2025 4:23 PM CDT DTL Tissue ID [id number] 03/05/2025 4:23 PM CDT DTL Method Microscopic [...] MLH1, MSH2, MSH6, NBN, PALB2, PMS2, POLE, HXJ2D6L, and TP53. Variant nomenclature is based on build GRCh37 (hg19). For details about gene transcripts (RefSeq accession numbers), specific targeted regions of each gene, and additional information on this test, see www.[employer] Referrals (Test ID MCECP). 03/05/2025 4:23 PM CDT [...] MLH1, MSH2, MSH6, NBN, PALB2, PMS2, POLE, LQL5A9V, and TP53 genes only. This test may [...] of heterozygosity) and sequencing artifact/misalignme nt [PMID: 43522243, PMID: 23333964]. Rare polymorphisms may be present that could [...] developed and its performance characteristics determined by [facility] in a manner consistent with CLIA requirements. [...] desired, surgical pathology consultation is available from [facility] ( ). MSI: Stable (KASSI) NO evidence of microsatellite instability was detected suggesting the presence of normal DNA mismatch repair function within the tumor. Current data suggest that advanced stage solid tumors with intact mismatch repair (KASSI) are less likely to be responsive to treatment with immunotherapies such as anti-PD-1 therapies [PMID 06672097, PMID 48712417]. However, lenvatinib in combination with pembrolizumab has been FDA-approved for patients with advanced endometrial carcinoma with intact mismatch repair (KASSI) and who have disease progression following prior systemic therapy but are not candidates for curative surgery or radiation [PMID: 44319941, PMID: 16500780]. 03/05/2025 4:23 PM CDT DTL Tissue (Uterus) 02/12/2025 1 0:56 AM CDT Abigail Rasmussen M.D. LAB GENETIC TESTING Final Result [facility] [address] [place] [address], [facility] DTL [address] [place] [address] * Mismatch Repair (MMR) Protein Immunohistochemistry Only, [...] 03/03/2025 5:00 PM CDT DTL Tissue ID [id number] 03/03/2025 5:00 PM CDT DTL Released By [...] expression by IHC (Mod Pathol. 2019;33(5):871-879 (PMID: 60210096)). THERAPEUTIC IMPLICATIONS Current data suggest that in advanced stage solid tumors, targeted immunotherapies such as anti-PD-1 therapies are more likely to be effective in mismatch repair-deficient tumors than in mismatch repair-proficient tumors (Science. 2017 May 05;357(6774):409- 413 (PMID 06870589); J Clin Oncol. 2018 Oct 20:IBV5146984809 (PMID 89364326)). For interpretation of therapeutic implications of these [...] developed and its performance characteristics determined by [facility] in a manner consistent with CLIA requirements. This test has not been cleared or approved by the U.S. Food and Drug Administration. Tissue (Uterus) 02/12/2025 1 0:56 AM CDT Abigail Rasmussen M.D. LAB GENETIC TESTING Final Result [facility] [address] [place] [address], [facility] [address] [place] [address] * Surgical Pathology, Frozen Lab (02/12/2025 10:13 [...] permanent sections. Grossed by SAV Palafox PA ([facility]). B. Received fresh labeled uterus and cervix [...] from the mass, on the anterior endometrium. Freight Shipping Agent tissue submitted for frozen and permanent sections. Grossed by SAV Palafox PA ([facility]). Entire mass is submitted on 02/17/2025 by Ayala Rocha M.S., ROSY([facility]). 02/18/2025 3:13 PM CDT METH Block [...] full MCECP report, please refer to Case #[id number]. Test results for (IHC or SWEETIE) testing are valid for specimens fixed between 6 and 72 hours. Delay to fixation, under fixation or over fixation fall outside of guidelines and may affect these results. The following test(s) will be performed in the Genomics Laboratory: [facility] [place] Endometrial Panel (MCECP) MMR Protein, IHC Only, [...] Pelvic Nodes Examined: 2 Number of Pelvic [place] Nodes Examined: 2 Total Number of Para-aortic Nodes Examined: 0 Total Number of Para-aortic [place] Nodes Examined: 0 Distant Metastasis: Not applicable [...] Tissue (Uterus) 02/12/2025 1 0:55 AM CDT us Abigail Rasmussen M.D. LAB SURG PATH ORDERABLES Edited Result - Final Performing Organization Address City/[facility]/ZIP Co de Phone Number [facility] [address] [place] [address], [facility] METH [address] [place] [address] * Cytology Non-ELECTRICAL ACCESSORIES II ASSEMBLER (02/12/2025 9:35 AM CDT) 02/13/2025 3:22 PM [...] PATH ORDERABLES Final Result Performing Organization Address City/[facility]/ZIP Co de Phone Number [facility] [address] [place] [address], [place] DTL [address] [facility] [address] [place] [address] * LDA ANE ENDOTRACHEAL AIRWAY (02/12/2025 8:18 [...] ETT location: oral VL device: glide scope [place] scope blade size: 3 Tube size: 7 [...] of Specimens 5 02/12/2025 8:00 AM CDT [facility] Blood (Blood, Venous) 02/12/2025 8:00 AM CDT 02/12/2025 8:00 AM CDT Justyn Cruz M.D. LAB RESEARCH NO RESULT ROUTING Final Result [facility] [address] [place] [address], [place] [facility] [address] [place] [address] * (ABNORMAL) Bacterial Culture, Aerobic + Susceptibility (01/21/2025 10:06 AM CDT) Bacterial Culture, Aerobic + Susc With skin microbiota(A) 01/25/2025 6:03 AM CDT [facility] Bacterial Culture, Aerobic + Susc SCHAALIA (ACTINOMYCES) TURICENSIS 3+ (A) 01/25/2025 6:03 AM CDT MK Comment: Notify Microbiology if organism is to be sent to [facility] for susceptibility testing. Skin (Umbilicus) 01/21/2025 10:06 AM CDT 01/21/2025 7:04 PM CDT Comment:Specimen Source Site : Skin Nataly Pabon, C.N.P., D.N.P. LAB MICROBIOLOGY - GENERAL ORDERABLES Final Result [facility] [address] [place] [address], [facility] in [place] [address] [place] [address] * (ABNORMAL) Basic Metabolic Panel (11/08/2024 12:33 PM HEALTH AND SAFETY TECHNICIAN) Potassium, P 4.2 3.6 - 5.2 mmol/L 11/08/2024 6:35 PM HEALTH AND SAFETY TECHNICIAN OWAT Sodium, P 140 135 - 145 mmol/L 11/08/2024 6:35 PM HEALTH AND SAFETY TECHNICIAN OW[place] Chloride, P 103 98 - 107 mmol/L 11/08/2024 6:35 PM HEALTH AND SAFETY TECHNICIAN OW[place] Bicarbonate, P 26 22 - 29 mmol/L 11/08/2024 6:35 PM HEALTH AND SAFETY TECHNICIAN OW[place] Anion Gap, P 11 7 - 15 11/08/2024 6:35 PM HEALTH AND SAFETY TECHNICIAN OW[place] BUN (Blood Urea Nitrogen), P 23(H) 6 - 21 mg/dL 11/08/2024 6:35 PM HEALTH AND SAFETY TECHNICIAN OWAT Creatinine 0.66 0.59 - 1.04 mg/dL 11/08/2024 6:35 PM HEALTH AND SAFETY TECHNICIAN OWAT Estimated GFR (eGFR) >90 >=60 mL/min/BSA 11/08/2024 6:35 PM HEALTH AND SAFETY TECHNICIAN OWAT Comment: Estimated GFR calculated using the 2020 CKD_EPI creatinine equation. Calcium, Total, P 9.2 8.8 - 10.2 mg/dL 11/08/2024 6:35 PM HEALTH AND SAFETY TECHNICIAN OWAT Glucose, P 93 70 - 140 mg/dL 11/08/2024 6:35 PM HEALTH AND SAFETY TECHNICIAN OW[place] Blood (Blood, Venous) 11/08/2024 12:33 PM HEALTH AND SAFETY TECHNICIAN 11/08/2024 5:54 PM HEALTH AND SAFETY TECHNICIAN us Justyn Valladares APRN, C.N.P., M.S.N. LAB BLOOD ADD-ON Final Result [facility] [address] [place] [address], [place] OW[facility] [place] [address] [place] [address] * BI Breast Diagnostic Bilateral with Tomosynthesis [...] x 0.5 x 1.9 cm. Both the jacquard loom heddles tier and Dr. Moss participated in the ultrasound [...] x 0.5 x 1.9 cm. Both the jacquard loom heddles tier and Dr. Moss participated in the ultrasoundevaluation. [...] - Incomplete: Need Prior Mammograms forComparison. Grupo Rojas, B .Ch., B.A.O., Ph.D. [facility] BI PROCEDURES Edited Result - Final * Colonoscopy (12/04/2023 12:48 PM HEALTH AND SAFETY TECHNICIAN) 12/04/2023 12:4 8 PM HEALTH AND SAFETY TECHNICIAN Impressions [facility] - 12/04/2023 2:24 PM HEALTH AND SAFETY TECHNICIAN Post-op Diagnoses: - The entire examined colon is normal on direct and retroflexion views. - No specimens collected. Narrative [facility] - 12/04/2023 2:24 PM HEALTH AND SAFETY TECHNICIAN Gonda 9 GI GI Patient Name: Martha [...] bowel preparation was evaluated using the BBPS ([place] Bowel Preparation Scale) with scores of: Right [...] M.D. GI PROCEDURE ORDERABLES Fin al Result [facility] NA * HCV Ab Scrn w/Reflex to HCV PCR, Serum (11/10/2023 8:31 AM HEALTH AND SAFETY TECHNICIAN) HCV Ab Screen, S Negative Negative 11/10/2023 11:52 AM HEALTH AND SAFETY TECHNICIAN [facility] Comment:Pbukvk-ss-yqcndg rat io is <1.00. Blood (Blood, Venous) 11/10/2023 8:31 AM HEALTH AND SAFETY TECHNICIAN 11/10/2023 10:44 AM HEALTH AND SAFETY TECHNICIAN Grupo Rojas, B .Ch., B.A.O., Ph.D. LAB MICROBIOLOGY - BLOOD ORDERABLES Final Result [facility] [address] [place] [address] [facility] [address] [place] [address] * Hepatitis B Surface Antigen (11/10/2023 8:31 AM HEALTH AND SAFETY TECHNICIAN) HBs Antigen, S Negative Negative 11/10/2023 11:34 AM HEALTH AND SAFETY TECHNICIAN [facility] Blood (Blood, Venous) 11/10/2023 8:31 AM HEALTH AND SAFETY TECHNICIAN 11/10/2023 10:44 AM HEALTH AND SAFETY TECHNICIAN us Grupo Rojas, Shani .Ch., B.A.O., Ph.D. LAB MICROBIOLOGY - BLOOD ORDERABLES Final Result [facility] [address] [place] [address] [facility] [address] [place] [address] from Last 3 Months or Most Recently Relevant to Health Maintenance Insurance [address] [place] KIRILL Garcia [id number] [facility] MEDICARE Advance Directives For more information, please contact: [phone] * Full Code (Latest Code Status on [...] Answer Comments Full Code: Discussed Care Teams Behavioral Modification Assistant Relationship Specialty Start Date End Date Elsewhere, Pcp PCP - General Internal Medicine 09/11/23
--- OUTSIDE RECORDS SUMMARY | 2025-03-18 17:32 | XMS_ITS | Encounter Summary ---
Author Organization [facility] Address [address] [place] [address] Care Team Providers Care Graduate Studies Dean Name Role Phone Elsewhere, Pcp Primary Care Provider Unavailabl e Encounter Details Date Type Department Care Team (Latest Contact Info) Description 02/13/2025 Results Follow-Up Department of Obstetrics and Gynecology, Division of Gynecologic Oncology in [place], [place] [address] [place] [address] Abigail Rasmussen M.D. [address] [place] [phone] Cytology Non-STEWARD/STEWARDESS TOURIST CLASS, Surgical Pathology, Frozen Lab, Mismatch Repair (MMR) Protein Immunohistochemistry Only, Tumor, [facility] Endometrial Carcinoma Panel, Next-Generation Sequencing, Tumor Social History Tobacco Use Types Packs/Day Years Used Date Smoking Tobacco: Never Passive Smoke Exposure: Never Smokeless Tobacco: Never Alcohol Use Standard Drinks/Week Comments Yes 2 (1 standard drink = 0.6 oz pur e alcohol) [facility] Utilities Answer Date Recorded In [...] your living situation today? I have a [facility] place to live 02/13/2025 Comments No Sex and Gender Information Value Date Recorded Sex Assigned at Female 10/29/2023 4:34 PM WINDING OPERATOR Legal Sex Female 8:57 AM WINDING OPERATOR Gender Identity Female 10/29/2023 4:34 PM WINDING OPERATOR Sexual Orientation Straight 10/29/2023 4: 34 PM WINDING OPERATOR documented as of this encounter Miscellaneous Notes * Result Encounter Note - Abigail Rasmussen M.D. - 02/18/2025 6:00 PM CDT I have reviewed the final pathology report and the identified diagnosis is consistent with the patient's clinical presentation. documented in this encounter Plan of Treatment Upcoming Encounters Date Type Department Care Team (Late st Contact Info) Description 03/19/2025 11:30 AM CDT Office Visit Department of Obstetrics and Gynecology, Division of Gynecologic Oncology in [place], [place] [address] [place] [phone] Stephanie Clay, SOUVENIR ASSEMBLER, C.N.P. [address] [place] [address] documented as of this encounter Visit Diagnoses Not on filedocumented in this encounter Care Teams Graduate Studies Dean Relationship Specialty Start Date End Date Elsewhere, Pcp PCP - General Internal Medicine 09/11/23 documented as of this encounter
--- OUTSIDE RECORDS SUMMARY | 2025-03-18 17:32 | XMS_ITS | Data Portability ---
Author Organization [place] [facility] Address [address] [place] [address] Care Team Providers Care Aluminum Siding Applicator Name Role Phone [facility] Referring Provider Assessment Encounter Date Assessment [...] (PROC ) No observ ation record ed. [email or web address] [facility] [address] [place], [place], [address], 09/10/2023 01:59:42 Result Notes None recorded. Problems Name Problem SNOMED Code Status Onset Date Resolution Date Notes Provider Name and Address Organization Details Recorded Time Kidney stone 97187511 Active 023 Harsh corbin MD, PHD [address] [facility],[address], [place], [address] , [facility] 08/18/2023 10:39:59 Problem Notes None recorded. Procedures Surgical History Date Name Laterality Status Provider Name and Address Organization Details Recorded Time 8 ureteroscopy completed Radha Jason [facility] 08/18/2023 09:39:35 Imaging Results None [...] Updated DateTime 08/18/2023 165.1 cm 38.6 kg/m2 693329.43 g [facility] 08/18/2023 09:37:16 Social History Question Answer Notes LastModified by Organizat ion Details LastModified Time Tobacco Smoking Status Never Smoker Radha Eren prasad [place] [facility] 08/18/2023 09:38:48 What Was The Date Of Your Most Recent Tobacco Screening? 08/18/2023 [email or web address] Information not available 08/18/2023 Sex: Unknown Functional [...] SNOMED-CT Code Diagnosis ICD10 Code Diagnosis Note [id number] Harsh corbin MD, PHD [facility] [address] [place] [address] 08/18/2023 09:21:11 08/28/2023 13:58:22 Kidney stone 14045416 N20.0 Health Concerns Section Related Observation LastModified by Organization Detai ls LastModified Time None Recorded Concern Status LastModified by Organization Details LastModified Time None Recorded Advance Directives Directive None Recorded Payers Insurance Date Sequence Insurance Name Policy Number Policy Melvin Covered Member ID Melvin Member ID Guarantor Name 10/03/2023 1 [place]: [employer] Martha L Postlethwaite [id number] Martha Postlethwaite 10/03/2023 2 [place] [id number] Martha L Postlethwaite [id number] Martha Postlethwaite Notes Date Note Type [...] Foster, EnglishTob:EtOH: FamHx: Harsh Manzano MD, PHD [address] [place] [address],[address], [phone], [facility] 08/18/2023 11:01:18 OBGyn Episode No OBEpisode recorded.
--- NOTE | 2025-03-18 18:07 | ED.GENADULT ---
HPI - General Adult General Chief complaint: Chest Pain Stated complaint: Chest Pain Time Seen by Provider: 03/18/25 18:07 History of Present Illness HPI narrative: patient started with chest pain started with sharp pain upper back between the shoulder blades and radiated to front of chest. noted starting at 1330. had an EKG with EMS and given ASA 324mg and NTGx2 with relief of pain. pain was 5 and went down to 3/10 scale. #22 SL in left hand. 75-year-old woman presenting to the emergency department after fairly abruptly started to have upper back pain between her shoulder blades and then demonstrates that is rating around the rib margins to the front. Was with grandkids at the time and vomiting in the parking lot with onset of this pain. It is sharp. Not pleuritic. Not short of breath nor with cough With concern of atypical presentation cardiac related chest pain in a woman reasonably thought that should be evaluated. Has received nitroglycerin and aspirin from EMS Has had quite around of medical struggles lately culminating with February 12 hysterectomy for endometrial cancer. She did have nausea for some time after the surgery. Notes that this seems to be improving. No concerns of incisional/wound infection. She did have a cholecystectomy with cholelithiasis many years ago. Related Data Home Medications ?Medication ?Instructions ?Recorded ?Confirmed cholecalciferol (vitamin D3) 25 25 mcg PO DAILY 06/14/22 03/18/25 mcg (1,000 unit) tablet lisinopril 40 mg tablet 40 mg PO DAILY 06/14/22 03/18/25 rosuvastatin 10 mg tablet 10 mg PO DAILY 06/14/22 03/18/25 triamterene 37.5 1 tab PO DAILY 06/14/22 03/18/25 mg-hydrochlorothiazide 25 mg tablet fluoxetine 40 mg capsule 40 mg PO DAILY 09/22/23 03/18/25 acetaminophen 500 mg tablet 500 - 1,000 mg PO Q6H PRN 09/30/23 03/18/25 gabapentin 100 mg capsule 200 mg PO HS 09/30/23 03/18/25 cyanocobalamin (vitamin B-12) 1,000 mcg sublingual DAILY 02/14/25 03/18/25 1,000 mcg sublingual tablet famotidine 10 mg tablet 10 mg PO BID PRN 02/14/25 03/18/25 ibuprofen 200 mg tablet (Advil) 600 mg PO Q6H PRN 02/14/25 03/18/25 Previous Rx's ?Medication ?Instructions ?Recorded fexofenadine 180 mg tablet 180 mg PO DAILY #14 tabs 02/15/25 Allergies Allergy/AdvReac Type Severity Reaction Status Date / Time shellfish derived AdvReac Verified 03/18/25 19:45 Review of Systems Status of ROS: Reports: 6 or more systems reviewed and unremarkable except as noted in History and below PFSH [facility] Medical History Fracture of phalanx of finger ?S62.609A - Fracture of unspecified phalanx of unspecified finger, initial encounter for closed fracture (ICD-10) Osteoporosis ?M81.0 - Age-related osteoporosis without current pathological fracture (ICD-10) High cholesterol ?E78.00 - Pure hypercholesterolemia, unspecified (ICD-10) Ulcer of esophagus without bleeding ?K22.10 - Ulcer of esophagus without bleeding (ICD-10) Left peroneal nerve palsy ?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 - Lesion of lateral popliteal nerve, left lower limb (ICD-10) Small vessel disease, cerebrovascular ?I67.9 - Cerebrovascular disease, unspecified (ICD-10) Major depressive disorder ?F32.9 - Major depressive disorder, single episode, unspecified (ICD-10) Benign neoplasm of colon ?D12.6 - Benign neoplasm of colon, unspecified (ICD-10) Essential hypertension ?I10 - Essential (primary) hypertension (ICD-10) Shingles ?B02.9 - Zoster without complications (ICD-10) Kidney stones ?N20.0 - Calculus of kidney (ICD-10) Surgical History History of hysterectomy for cancer ?Z90.710 - Acquired absence of both cervix and uterus (ICD-10) History of open reduction and internal fixation (ORIF) procedure (10/18/23) ?Z98.890 - Other specified postprocedural states (ICD-10) H/O lithotripsy (~2008) ?Z98.890 - Other specified postprocedural states (ICD-10) H/O dilation and curettage ?Z98.890 - Other specified postprocedural states (ICD-10) H/O esophagogastroduodenoscopy ?Z98.890 - Other specified postprocedural states (ICD-10) H/O colonoscopy ?Z98.890 - Other specified postprocedural states (ICD-10) History of cholecystectomy ?Z90.49 - Acquired absence of other specified parts of digestive tract (ICD-10) Previous section (1981) ?Z98.891 - History of uterine scar from previous surgery (ICD-10) History of medial meniscus repair of left knee (12/08/06) ?Z98.890 - Other specified postprocedural states (ICD-10) 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) ?Z96.651 - Presence of right artificial knee joint (ICD-10) Status post left knee replacement (12/30/21) ?Z96.652 - Presence of left artificial knee joint (ICD-10) Family History Mother Breast cancer Stroke Father Diabetes Cardiovascular disease Sister Osteoporosis Maternal Grandfather Alzheimers disease Brother Stroke Social History Narrative: Lives independently with in a handicap accessible house. Lifelong nonsmoker. 1-2 glasses of wine per week. FULL CODE. What is your current living situation?: I presently have a place to live Problems where you live: no known problems Problems where you live details: n/a In the past 12 months, utilities in danger of being shut off: no In past 12 months, lack of transportation kept you from medical appts, meetings, work, or getting things needed for daily living: no In the past 12 mos, have been you worried that your food would run out before you had money to buy more?: never true In the past 12 mos, the food you bought just didn't last and you didn't have money to buy more?: never true Highest level of school completed/degree received: Doctoral degree Smoking Status: Never smoker Do you use any of these nicotine containing products: None Second hand tobacco smoke exposure: No How often do you have a drink containing alcohol: 2-4 times a month How often do you have six or more drinks on one occasion: Never AUDIT-C Alcohol total score: 2 Non-prescribed substance use: denies use Caffeine: Yes (coffee) How often does anyone, including family, friends and others, physically hurt you: never How often does anyone, including family, friends and others, insult or talk down to you: never How often does anyone, including family, friends and others, threaten you with harm: never How often does anyone, including family, friends and others, scream or curse at you: never service: No Exam Narrative: Exam Narrative: Very pleasant. Good energy. Pleasantly talkative. Breathing easily. Lungs are clear. Heart in regular rate and rhythm. Abdomen is soft with a little bit of tenderness in the paraspinal musculature of the mid back but especially in the epigastrium little bit to the left. Extremities are well perfused. Const: Vital Signs, click to edit/add: Vital Signs - 24 hr 03/18/25 17:40 03/18/25 17:47 03/18/25 17:50 Temperature 98.2 F Pulse Rate 80 Pulse Rate [Pulse Oximeter] 82 Respiratory Rate 18 15 Blood Pressure Blood Pressure [Ri ght Upper Arm] 127/77 Pulse Oximetry 98 96 96 Oxygen Delivery Me thod Room Air 03/18/25 18:01 03/18/25 18:31 03/18/25 19:01 Temperature Pulse Rate 72 69 67 Pulse Rate [Pulse Oximeter] Respiratory Rate 18 15 20 Blood Pressure 123/71 128/80 126/68 Blood Pressure [Ri ght Upper Arm] Pulse Oximetry 96 97 95 Oxygen Delivery Me thod 03/18/25 19:32 03/18/25 20:29 03/18/25 20:31 Temperature Pulse Rate 66 72 74 Pulse Rate [Pulse Oximeter] Respiratory Rate 17 18 18 Blood Pressure 130/74 164/73 H 143/72 H Blood Pressure [Ri ght Upper Arm] Pulse Oximetry 98 96 94 Oxygen Delivery Me thod 03/18/25 21:01 Temperature 98.2 F Pulse Rate 74 Pulse Rate [Pulse Oximeter] Respiratory Rate 18 Blood Pressure 133/67 Blood Pressure [Ri ght Upper Arm] Pulse Oximetry 95 Oxygen Delivery Me thod Documenting provider has reviewed patient's vital signs: yes Course Vital Signs Vital signs: Initial Vital Signs Temperature 98.2 F 03/18/25 17:40 Temperature Source Temporal Artery Scan 03/18/25 17:40 Pulse Rate 82 03/18/25 17:40 Pulse Rhythm Regular 03/18/25 17:40 Respiratory Rate 18 03/18/25 17:40 Blood Pressure 127/77 03/18/25 17:40 Blood Pressure Mean 93 03/18/25 17:40 Blood Pressure Position Sitting 03/18/25 17:40 Pulse Oximetry 98 03/18/25 17:40 Oxygen Delivery Method Room Air 03/18/25 17:40 Vital Signs Temperature 98.2 F 03/18/25 17:40 Pulse Rate 82 03/18/25 17:40 Respiratory Rate 18 03/18/25 17:40 Blood Pressure 127/77 03/18/25 17:40 Pulse Oximetry 98 03/18/25 17:40 Oxygen Delivery Method Room Air 03/18/25 17:40 Temperature 98.2 F 03/18/25 21:01 Pulse Rate 74 03/18/25 21:01 Respiratory Rate 18 03/18/25 21:01 Blood Pressure 133/67 03/18/25 21:01 Pulse Oximetry 95 03/18/25 21:01 Oxygen Delivery Method Room Air 03/18/25 17:40 Medications Administered Medications: Generic Name Dose Route Start Last Admin Trade Name Freq PRN Reason Stop Dose Admin Fentanyl 50 mcg 03/18/25 22:02 03/18/25 22:16 Fentanyl 100 Mcg/2 Ml Inj IVP 03/18/25 22:03 50 mcg ONCE ONE Administration Discontinued Medications Generic Name Dose Route Start Last Admin Trade Name Freq PRN Reason Stop Dose Admin Hydromorphone HCl 0.5 mg 03/18/25 19:35 03/18/25 19:40 Hydromorphone 0.5 Mg/0.5 Ml Inj IVP 03/18/25 19:36 0.5 mg ONCE ONE Administration Sodium Chloride 1,000 mls @ 1,000 mls/hr 03/18/25 20:16 03/18/25 21:37 0.9 % Sodium Chloride 1000 Ml IV 03/18/25 21:15 Infused .Q1H ONE Infusion Medical Decision Making MDM Narrative Medical decision making narrative: I have reviewed EKG. Does not look to show ischemia. I think does warrant cardiac workup but will check other labs. Would have concern about gallbladder disease however reports that no longer has her gallbladder. Transaminases come back quite elevated but with normal bilirubin and alk-phos. Requesting ultrasound and would add on a lipase I am alarmed however as her pain is described as quite severe intense. Will be given Dilaudid. Need to replace infiltrated IV. This required ultrasound guidance. Vascular dissection is in differential as well. Lipase markedly elevated at nearly 27,000. Ductal stone? Anticipated ultrasound but consulted with ultrasound and General surgery and thought of uncertain benefit INDICATION: SEVERE MID BACK PAIN AND EPIGASTRIC PAIN. TECHNIQUE: CT chest without contrast and CT chest, abdomen and pelvis acquired with 100 cc Omnipaque 350 IV contrast, dissection protocol. Multiplanar reformats were obtained. Axial MIP reconstructions were obtained. COMPARISON: None. FINDINGS: CHEST: Cardiovascular structures: The unenhanced images demonstrate no evidence of aortic intramural thrombus. Thoracic aorta is normal in caliber without evidence of dissection. Heart size is borderline enlarged.. Mediastinum and savana: No mass or adenopathy. Lungs and pleura: Lungs are clear. No pleural effusions. Chest wall and axilla: No mass or adenopathy. Bones: Unremarkable for age. ABDOMEN AND PELVIS: Liver: Unremarkable. Gallbladder and bile ducts: Gallbladder is absent. No significant intra or extrahepatic biliary ductal dilatation. Pancreas: Mild fat stranding near the head of the pancreas. Body and tail the pancreas are unremarkable. No significant edema. Mild fluid near the body and tail the pancreas. Spleen: Unremarkable. Adrenal glands: Unremarkable. Kidneys: Unremarkable. GI tract: Unremarkable. Vascular structures: Abdominal aorta is normal in caliber without evidence of dissection. Mesenteric arteries are patent. Lymph nodes: Unremarkable. Miscellaneous: Unremarkable. No free air or significant free fluid. Pelvic Organs: Unremarkable. Bones: Unremarkable for age. IMPRESSION: 1. No aortic dissection identified. No acute aortic process identified. 2. Inflammatory stranding near the head of the 5th and adjacent to the duodenum. Findings may be related to duodenitis or pancreatitis. Small fluid is also noted adjacent to the body and tail of the pancreas and in the transverse mesocolon. Pancreas appears non edematous. No peripancreatic fluid collections. 3. Status post cholecystectomy. Please note that all CT scans at this facility use dose modulation, iterative reconstruction, and/or weight-based dosing when appropriate to reduce radiation dose to as low as reasonably achievable. Dictated by Marci Recinos MD @ 03/18/2025 8:55:23 PM Curious abrupt onset to this pancreatitis. Notes her cholesterol to be pretty good. Uncertain triglyceride level. Maintains that rarely drinks alcohol. White count is mildly elevated. Pain is increasing again and felt like the 0.5 mg of Dilaudid to take a bit of the edge off but still quite present; will trial dosing of fentanyl. Discussed with hospitalist for admission. Is enjoying ice chips but trial of Jell-O was very uncomfortable. Medical Records Medical records reviewed: Yes I reviewed the patient's medical records Lab Data Lab results reviewed: Yes I reviewed the patient's lab results Labs: Lab Results 03/18/25 03/18/25 03/18/25 Range/Units 17:50 18:10 21:03 WBC 12.30 H (4.50-11.00) K/uL RBC 4.45 (4.00-5.20) m/uL Hgb 13.1 (12.0-16.0) gm/dL Hct 40.3 (33.0-51.0) % MCV 91 (80-100) fL MCH 29 (26-34) pg MCHC 33 (32-36) gm/dL RDW Coeff of Vilma 13.6 (11.5-15.5) % Plt Count 149 (140-440) K/uL Neut % (Auto) 82.6 H (42.0-72.0) % Lymph % (Auto) 9.8 L (20-44) % [place] % (Auto) 7.2 (0.0-11.0) % Eos % (Auto) 0.2 (0.0-7.0) % Baso % (Auto) 0.0 (0.0-3.0) % Neut # (Auto) 10.20 H (1.7-7.0) K/uL Lymph # (Auto) 1.20 (0.90-2.90) K/uL [place] # (Auto) 0.90 (0.00-0.90) K/UL Eos # (Auto) 0.00 (0.00-0.50) K/uL Baso # (Auto) 0.00 (0.00-0.30) K/uL Abs Immat Gran (auto) 0.00 (0.00-0.30) K/uL Imm/Tot Granulo (auto) 0.2 % D-Dimer Quant (PE/DVT) 1.99 H (0.00-0.50) ug/ml Sodium 141 (135-149) mmol/L Potassium 3.8 (3.6-5.1) mmol/L Chloride 105 (96-114) mmol/L Carbon Dioxide 29 (20-32) mmol/L Anion Gap 7 (7-15) mEq/L BUN 26 (7-30) mg/dL Creatinine 0.7 (0.5-1.5) mg/dL Estimated Creat Clear 43.74 Estimated GFR 90 ml/min Glucose 162 H (60-115) mg/dL Calcium 9.4 (8.4-10.6) mg/dL Total Bilirubin 1.0 (0.1-1.5) mg/dL Direct Bilirubin 0.5 (0.0-0.5) mg/dL AST 703 H (12-35) U/L ALT 267 H (4-35) U/L Alkaline Phosphatase 119 (40-150) U/L Troponin I < 0.01 (0.01-0.04) ng/mL C-Reactive Protein < 0.5 L (0.5-1.0) mg/dL Total Protein 6.5 (6.0-8.3) g/dL Albumin 3.7 (3.3-5.0) g/dL Lipase 30608 H (23-300) U/L Ethyl Alcohol < 0.01 (0.01-0.03) % Lab Acknowledgement Test Added Test Added POC Troponin I 0.00 L (0.01-0.04) ng/ml 03/18/25 Range/Units 21:54 WBC (4.50-11.00) K/uL RBC (4.00-5.20) m/uL Hgb (12.0-16.0) gm/dL Hct (33.0-51.0) % MCV (80-100) fL MCH (26-34) pg MCHC (32-36) gm/dL RDW Coeff of Vilma (11.5-15.5) % Plt Count (140-440) K/uL Neut % (Auto) (42.0-72.0) % Lymph % (Auto) (20-44) % [place] % (Auto) (0.0-11.0) % Eos % (Auto) (0.0-7.0) % Baso % (Auto) (0.0-3.0) % Neut # (Auto) (1.7-7.0) K/uL Lymph # (Auto) (0.90-2.90) K/uL [place] # (Auto) (0.00-0.90) K/UL Eos # (Auto) (0.00-0.50) K/uL Baso # (Auto) (0.00-0.30) K/uL Abs Immat Gran (auto) (0.00-0.30) K/uL Imm/Tot Granulo (auto) % D-Dimer Quant (PE/DVT) (0.00-0.50) ug/ml Sodium (135-149) mmol/L Potassium (3.6-5.1) mmol/L Chloride (96-114) mmol/L Carbon Dioxide (20-32) mmol/L Anion Gap (7-15) mEq/L BUN (7-30) mg/dL Creatinine (0.5-1.5) mg/dL Estimated Creat Clear Estimated GFR ml/min Glucose (60-115) mg/dL Calcium (8.4-10.6) mg/dL Total Bilirubin (0.1-1.5) mg/dL Direct Bilirubin (0.0-0.5) mg/dL AST (12-35) U/L ALT (4-35) U/L Alkaline Phosphatase (40-150) U/L Troponin I (0.01-0.04) ng/mL C-Reactive Protein (0.5-1.0) mg/dL Total Protein (6.0-8.3) g/dL Albumin (3.3-5.0) g/dL Lipase (23-300) U/L Ethyl Alcohol (0.01-0.03) % Lab Acknowledgement Test Added POC Troponin I (0.01-0.04) ng/ml ECG Data Attestation: I personally reviewed and interpreted this ECG as follows: (Normal sinus at a rate of 85. Looks similar to prior.) Discharge Plan Discharge Clinical Impression: Pancreatitis, Hepatitis Patient Disposition: Admitted As Observation Condition: Improved
[2025-03-18 18:29] LABS: Eosinophils Percent Auto 0.2 % (0.0-7.0); Hematocrit 40.3 % (33.0-51.0); Hemoglobin* 13.1 gm/dL (12.0-16.0); Immature Granulocytes Pct Auto 0.2 %; Lymphocytes Percent Auto 9.8 % (20-44); Mean Corpuscular HGB Conc 33 gm/dL (32-36); Mean Corpuscular Hemoglobin 29 pg (26-34); Mean Corpuscular Volume 91 fL (80-100); Monocytes Percent Auto 7.2 % (0.0-11.0); Neutrophils Percent Auto 82.6 % (42.0-72.0); Platelet Count* 149 K/uL (140-440); RDW Coefficient of Variation % 13.6 % (11.5-15.5); Red Blood Count 4.45 m/uL (4.00-5.20)
--- NOTE | 2025-03-18 18:29 | CRLHL7_ITS ---
For Patients: As a result of the Century Cures Act, medical imaging exams and procedure reports are released immediately into your electronic medical record. You may view this report before your referring provider. If you have questions, please contact your health care provider. INDICATION: Mid upper back pain. TECHNIQUE: Chest 1 view. COMPARISON: 02/13/2025. FINDINGS: Cardiovascular and mediastinum: Heart size and vasculature are normal in caliber and appearance. Lungs and pleural spaces: Lungs are clear. No pleural effusion, or pneumothorax. Bones and soft tissues: Unremarkable for age. IMPRESSION: No evidence of an acute pulmonary process. Dictated by Vik Gallo MD @ 03/18/2025 7:00:51 PM (Electronically Signed)
[2025-03-18 18:30] LABS: Slide Review Reflex No
[2025-03-18 18:48] LABS: Albumin* 3.7 g/dL (3.3-5.0); Chloride* 105 mmol/L (96-114)
[2025-03-18 18:49] LABS: D Dimer Quantitative* 1.99 ug/ml (0.00-0.50); Potassium* 3.8 mmol/L (3.6-5.1); Sodium* 141 mmol/L (135-149)
[2025-03-18 18:51] LABS: Alanine Aminotransferase* 267 U/L (4-35); Anion Gap 7 mEq/L (7-15); Aspartate Amino Transferase* 703 U/L (12-35); Blood Urea Nitrogen* 26 mg/dL (7-30); Carbon Dioxide* 29 mmol/L (20-32); Creatinine* 0.7 mg/dL (0.5-1.5); Est. Creatinine Clearance* 43.74; Estimated Glomerular Filt Rate 90 ml/min
[2025-03-18 18:52] LABS: Alkaline Phosphatase* 119 U/L (40-150); Bilirubin Direct* 0.5 mg/dL (0.0-0.5); Calcium* 9.4 mg/dL (8.4-10.6); Glucose* 162 mg/dL (60-115); Total Protein* 6.5 g/dL (6.0-8.3)
[2025-03-18 18:54] LABS: C Reactive Protein* < 0.5 mg/dL (0.5-1.0)
--- NOTE | 2025-03-18 19:29 | CRLHL7_ITS ---
For Patients: As a result of the Century Cures Act, medical imaging exams and procedure reports are released immediately into your electronic medical record. You may view this report before your referring provider. If you have questions, please contact your health care provider. INDICATION: SEVERE MID BACK PAIN AND EPIGASTRIC PAIN. TECHNIQUE: CT chest without contrast and CT chest, abdomen and pelvis acquired with 100 cc Omnipaque 350 IV contrast, dissection protocol. Multiplanar reformats were obtained. Axial MIP reconstructions were obtained. COMPARISON: None. FINDINGS: CHEST: Cardiovascular structures: The unenhanced images demonstrate no evidence of aortic intramural thrombus. Thoracic aorta is normal in caliber without evidence of dissection. Heart size is borderline enlarged.. Mediastinum and savana: No mass or adenopathy. Lungs and pleura: Lungs are clear. No pleural effusions. Chest wall and axilla: No mass or adenopathy. Bones: Unremarkable for age. ABDOMEN AND PELVIS: Liver: Unremarkable. Gallbladder and bile ducts: Gallbladder is absent. No significant intra or extrahepatic biliary ductal dilatation. Pancreas: Mild fat stranding near the head of the pancreas. Body and tail the pancreas are unremarkable. No significant edema. Mild fluid near the body and tail the pancreas. Spleen: Unremarkable. Adrenal glands: Unremarkable. Kidneys: Unremarkable. GI tract: Unremarkable. Vascular structures: Abdominal aorta is normal in caliber without evidence of dissection. Mesenteric arteries are patent. Lymph nodes: Unremarkable. Miscellaneous: Unremarkable. No free air or significant free fluid. Pelvic Organs: Unremarkable. Bones: Unremarkable for age. IMPRESSION: 1. No aortic dissection identified. No acute aortic process identified. 2. Inflammatory stranding near the head of the 5th and adjacent to the duodenum. Findings may be related to duodenitis or pancreatitis. Small fluid is also noted adjacent to the body and tail of the pancreas and in the transverse mesocolon. Pancreas appears non edematous. No peripancreatic fluid collections. 3. Status post cholecystectomy. Please note that all CT scans at this facility use dose modulation, iterative reconstruction, and/or weight-based dosing when appropriate to reduce radiation dose to as low as reasonably achievable. Dictated by Marci Recinos MD @ 03/18/2025 8:55:23 PM (Electronically Signed)
[2025-03-18 19:33] LABS: Troponin I* < 0.01 ng/mL (0.01-0.04)
[2025-03-18] MEDS: HYDROmorphone 0.5 mg/0.5 ml inj IVP (19:40)
[2025-03-18] MEDS: 0.9 % SODIUM CHLORIDE 1000 ml 1,000 ML IV (20:25)
[2025-03-18 20:47] LABS: Lipase* 26860 U/L (23-300)
[2025-03-18 21:26] LABS: Ethanol* < 0.01 % (0.01-0.03)
[2025-03-18] MEDS: fentaNYL 100 MCG/2 ML inj 50 MCG IVP (22:16)
[2025-03-18 22:39] LABS: Triglycerides* 50 mg/dL (40-149)
--- NOTE | 2025-03-18 23:58 | PM.IMHP1 ---
Assessment and Plan Assessment and plan (1) Pancreatitis: Problem comment: - acute pancreatitis, possible causes: History of cholecystectomy many years ago, possibly area of retained stone, but seems less likely after this many years. Triglycerides are 50, so this is not caused by hypertriglyceridemia. Very little alcohol use, although did have a drink the night prior. Cause is unclear. AST and ALT are also elevated, may benefit from MRCP tomorrow if these are worsening symptoms are not improved. - admit for bowel rest with clears and IV fluids, septum control with IV ondansetron and p.r.n. Dilaudid Status: Acute (2) Hepatitis: Problem comment: - as above Status: Acute (3) Endometrial cancer, grade I: Problem comment: dx December 2024; hysterectomy February [address] [facility] [address] [place] Status: Acute (4) Hypertension: Problem comment: maxzide daily lisinopril 40 Status: Chronic (5) Major depressive disorder: Problem comment: fluoxetine 40 Status: Chronic Hospitalist- H&P: HPI History of Present Illness Time Seen by Provider: 23:10 Date Seen: 03/18/25 Chief complaint: Chest Pain Narrative: Martha Brooks is a 75 year old female s/p hysterectomy on 02/12/25 for endometrial cancer, also has a history of hypertension, hypercholesterolemia, and nonbleeding esophageal ulcer in 2018 who presented through the emergency department for acute onset of abdominal pain. She was doing well today, watching her grandkids when she started eating a sandwich around 1:30 p.m. and suddenly felt terrible pain in her upper back between her shoulder blades that then radiated around under her ribs her epigastrium. She then had fairly severe nausea with 7 bouts of emesis. She was found to have pancreatitis on imaging and via labs. She has never had pancreatitis before. She had a cholecystectomy many years ago. She has occasional alcohol use, but did have 1 alcoholic drink last night with a very rich meal, which she notes was different than how she usually eats because she had gone out with her daughter who is in town. She denies any fevers or chills. Nothing seemed to make the pain better or worse. Review of Systems Status of ROS: Reports: 10 or more systems reviewed and unremarkable except as noted in History and below Medical Decision Making Medical Decision Making Code Status: DNR/DNI Has patient completed a Health Care Directive: Yes During This Stay, Who Would You Like To Make Decisions For You In The Event You Are Unable To Make Them For Yourself?: PFSH PFS Medical History (Updated 03/19/25 @ 00:54 by Erum Urias MD) Anemia, pernicious (11/14/23) ?D51.0 - Vitamin B12 deficiency anemia due to intrinsic factor deficiency (ICD-10) Peripheral neuropathy ?G62.9 - Polyneuropathy, unspecified (ICD-10) Hypertension ?I10 - Essential (primary) hypertension (ICD-10) Hypokalemia ?E87.6 - Hypokalemia (ICD-10) Endometrial cancer, grade I ?C54.1 - Malignant neoplasm of endometrium (ICD-10) Post-nasal drainage ?R09.82 - Postnasal drip (ICD-10) Fracture of phalanx of finger ?S62.609A - Fracture of unspecified phalanx of unspecified finger, initial encounter for closed fracture (ICD-10) Osteoporosis ?M81.0 - Age-related osteoporosis without current pathological fracture (ICD-10) High cholesterol ?E78.00 - Pure hypercholesterolemia, unspecified (ICD-10) Ulcer of esophagus without bleeding ?K22.10 - Ulcer of esophagus without bleeding (ICD-10) Left peroneal nerve palsy ?G57.32 - Lesion of lateral popliteal nerve, left lower limb (ICD-10) Small vessel disease, cerebrovascular ?I67.9 - Cerebrovascular disease, unspecified (ICD-10) Major depressive disorder ?F32.9 - Major depressive disorder, single episode, unspecified (ICD-10) Benign neoplasm of colon ?D12.6 - Benign neoplasm of colon, unspecified (ICD-10) Essential hypertension ?I10 - Essential (primary) hypertension (ICD-10) Shingles ?B02.9 - Zoster without complications (ICD-10) Kidney stones ?N20.0 - Calculus of kidney (ICD-10) Surgical History (Updated 03/19/25 @ 00:47 by Erum Urias MD) History of hysterectomy for cancer ?Z90.710 - Acquired absence of both cervix and uterus (ICD-10) History of open reduction and internal fixation (ORIF) procedure (10/18/23) ?Z98.890 - Other specified postprocedural states (ICD-10) H/O lithotripsy (~2008) ?Z98.890 - Other specified postprocedural states (ICD-10) H/O dilation and curettage ?Z98.890 - Other specified postprocedural states (ICD-10) H/O esophagogastroduodenoscopy ?Z98.890 - Other specified postprocedural states (ICD-10) H/O colonoscopy ?Z98.890 - Other specified postprocedural states (ICD-10) History of cholecystectomy ?Z90.49 - Acquired absence of other specified parts of digestive tract (ICD-10) Previous section (1981) ?Z98.891 - History of uterine scar from previous surgery (ICD-10) History of medial meniscus repair of left knee (12/08/06) ?Z98.890 - Other specified postprocedural states (ICD-10) 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) ?Z96.651 - Presence of right artificial knee joint (ICD-10) Status post left knee replacement (12/30/21) ?Z96.652 - Presence of left artificial knee joint (ICD-10) Family History Mother Breast cancer Stroke Father Diabetes Cardiovascular disease Sister Osteoporosis Maternal Grandfather Alzheimers disease Brother Stroke Social History (Updated 03/19/25 @ 00:47 by Erum Urias MD) Narrative: Lives independently with in a handicap accessible house. Lifelong nonsmoker. 1-2 glasses of wine per week. What is your current living situation?: I presently have a place to live Problems where you live: no known problems Problems where you live details: n/a In the past 12 months, utilities in danger of being shut off: no In past 12 months, lack of transportation kept you from medical appts, meetings, work, or getting things needed for daily living: no In the past 12 mos, have been you worried that your food would run out before you had money to buy more?: never true In the past 12 mos, the food you bought just didn't last and you didn't have money to buy more?: never true Highest level of school completed/degree received: Doctoral degree Smoking Status: Never smoker Do you use any of these nicotine containing products: None Second hand tobacco smoke exposure: No How often do you have a drink containing alcohol: 2-4 times a month How often do you have six or more drinks on one occasion: Never AUDIT-C Alcohol total score: 2 Non-prescribed substance use: denies use Caffeine: Yes (coffee) How often does anyone, including family, friends and others, physically hurt you: never How often does anyone, including family, friends and others, insult or talk down to you: never How often does anyone, including family, friends and others, threaten you with harm: never How often does anyone, including family, friends and others, scream or curse at you: never service: No Meds Home Medications and Allergies Home Medications ?Medication ?Instructions ?Recorded ?Confirmed ?Type cholecalciferol (vitamin D3) 25 25 mcg PO DAILY 06/14/22 03/18/25 History mcg (1,000 unit) tablet lisinopril 40 mg tablet 40 mg PO DAILY 06/14/22 03/18/25 History rosuvastatin 10 mg tablet 10 mg PO DAILY 06/14/22 03/18/25 History triamterene 37.5 1 tab PO DAILY 06/14/22 03/18/25 History mg-hydrochlorothiazide 25 mg tablet fluoxetine 40 mg capsule 40 mg PO DAILY 09/22/23 03/18/25 History acetaminophen 500 mg tablet 500 - 1,000 mg PO Q6H PRN 09/30/23 03/18/25 History gabapentin 100 mg capsule 200 mg PO HS 09/30/23 03/18/25 History cyanocobalamin (vitamin B-12) 1,000 mcg sublingual DAILY 02/14/25 03/18/25 History 1,000 mcg sublingual tablet famotidine 10 mg tablet 10 mg PO BID PRN 02/14/25 03/18/25 History ibuprofen 200 mg tablet (Advil) 600 mg PO Q6H PRN 02/14/25 03/18/25 History fexofenadine 180 mg tablet 180 mg PO DAILY #14 tabs 02/15/25 03/18/25 Rx Allergies Allergy/AdvReac Type Severity Reaction Status Date / Time shellfish derived AdvReac Verified 03/18/25 19:45 Exam Narrative: Exam Narrative: General: No acute distress. Awake alert oriented x3. HEENT: Normocephalic atraumatic, pupils equally round and reactive to light and accommodation. Oropharynx clear. Mucous membranes are moist. No cervical lymphadenopathy, thyromegaly or carotid bruits. No JVD. Cardiovascular: Regular rate and rhythm. No murmurs, gallops, or rubs. Chest: No increased work of breathing. Clear to auscultation bilaterally. No crackles or wheezes. Abdomen: Bowel sounds present. Soft, nondistended, tender in the epigastrium and slightly off to the right upper quadrant as well. No rebound tenderness or guarding. No hepatosplenomegaly or masses. Extremities: No edema, no cyanosis or clubbing. Skin: No jaundice, no pallor, no rashes on visible skin. Const: Vital Signs, click to edit/add: Vital Signs - 24 hr 03/18/25 17:40 03/18/25 17:47 03/18/25 17:50 Temperature 98.2 F Pulse Rate 80 Pulse Rate [Pulse Oximeter] 82 Respiratory Rate 18 15 Blood Pressure Blood Pressure [Le ft Arm] Blood Pressure [Ri ght Upper Arm] 127/77 Pulse Oximetry 98 96 96 Oxygen Delivery Me thod Room Air 03/18/25 18:01 03/18/25 18:31 03/18/25 19:01 Temperature Pulse Rate 72 69 67 Pulse Rate [Pulse Oximeter] Respiratory Rate 18 15 20 Blood Pressure 123/71 128/80 126/68 Blood Pressure [Le ft Arm] Blood Pressure [Ri ght Upper Arm] Pulse Oximetry 96 97 95 Oxygen Delivery Me thod 03/18/25 19:32 03/18/25 20:29 03/18/25 20:31 Temperature Pulse Rate 66 72 74 Pulse Rate [Pulse Oximeter] Respiratory Rate 17 18 18 Blood Pressure 130/74 164/73 H 143/72 H Blood Pressure [Le ft Arm] Blood Pressure [Ri ght Upper Arm] Pulse Oximetry 98 96 94 Oxygen Delivery Me thod 03/18/25 21:01 03/18/25 21:32 03/18/25 22:32 Temperature 98.2 F 98.2 F Pulse Rate 74 80 Pulse Rate [Pulse Oximeter] 82 Respiratory Rate 18 18 18 Blood Pressure 133/67 152/82 H Blood Pressure [Le ft Arm] Blood Pressure [Ri ght Upper Arm] 127/77 Pulse Oximetry 95 96 Oxygen Delivery Me thod 03/18/25 22:40 Temperature 98.1 F Pulse Rate Pulse Rate [Pulse Oximeter] 66 Respiratory Rate 20 Blood Pressure Blood Pressure [Le ft Arm] 165/86 H Blood Pressure [Ri ght Upper Arm] Pulse Oximetry 93 Oxygen Delivery Me thod Room Air Hospitalist - H&P: Result Labs Labs: Short CBC 03/18/25 Range/Units 18:10 WBC 12.30 H (4.50-11.00) K/uL Hgb 13.1 (12.0-16.0) gm/dL Hct 40.3 (33.0-51.0) % Plt Count 149 (140-440) K/uL BMP 03/18/25 18:10 Sodium 141 Potassium 3.8 Chloride 105 Carbon Dioxide 29 BUN 26 Creatinine 0.7 Glucose 162 H Calcium 9.4 Cardiac Enzymes 03/18/25 Range/Units 18:10 Troponin I < 0.01 (0.01-0.04) ng/mL Liver Function 03/18/25 Range/Units 18:10 Total Bilirubin 1.0 (0.1-1.5) mg/dL Direct Bilirubin 0.5 (0.0-0.5) mg/dL AST 703 H (12-35) U/L ALT 267 H (4-35) U/L Alkaline Phosphatase 119 (40-150) U/L Albumin 3.7 (3.3-5.0) g/dL 03/18/2025 EKG: Normal sinus rhythm, 85 beats per minute, nonspecific ST and T-wave abnormality. Ordering Physician: Herbert Leung M.D. Date of Service: 03/18/25 Procedure(s): XR chest 1V portable Accession Number(s): [id number] cc: Herbert Leung M.D.; Wandy Sterling M.D.~ For Patients: As a result of the 21st Century Cures Act, medical imaging exams and procedure reports are released immediately into your electronic medical record. You may view this report before your referring provider. If you have questions, please contact your health care provider. INDICATION: Mid upper back pain. TECHNIQUE: Chest 1 view. COMPARISON: 02/13/2025. FINDINGS: Cardiovascular and mediastinum: Heart size and vasculature are normal in caliber and appearance. Lungs and pleural spaces: Lungs are clear. No pleural effusion, or pneumothorax. Bones and soft tissues: Unremarkable for age. IMPRESSION: No evidence of an acute pulmonary process. Dictated by Vik Gallo MD @ 03/18/2025 7:00:51 PM (Electronically Signed) Ordering Physician: Herbert Leung M.D. Date of Service: 03/18/25 Procedure(s): CT angio CAP aortic dissection Accession Number(s): [id number] cc: Herbert Leung M.D.; Wandy Sterling M.D.~ For Patients: As a result of the Cures Act, medical imaging exams and procedure reports are released immediately into your electronic medical record. You may view this report before your referring provider. If you have questions, please contact your health care provider. INDICATION: SEVERE MID BACK PAIN AND EPIGASTRIC PAIN. TECHNIQUE: CT chest without contrast and CT chest, abdomen and pelvis acquired with 100 cc Omnipaque 350 IV contrast, dissection protocol. Multiplanar reformats were obtained. Axial MIP reconstructions were obtained. COMPARISON: None. FINDINGS: CHEST: Cardiovascular structures: The unenhanced images demonstrate no evidence of aortic intramural thrombus. Thoracic aorta is normal in caliber without evidence of dissection. Heart size is borderline enlarged.. Mediastinum and savana: No mass or adenopathy. Lungs and pleura: Lungs are clear. No pleural effusions. Chest wall and axilla: No mass or adenopathy. Bones: Unremarkable for age. ABDOMEN AND PELVIS: Liver: Unremarkable. Gallbladder and bile ducts: Gallbladder is absent. No significant intra or extrahepatic biliary ductal dilatation. Pancreas: Mild fat stranding near the head of the pancreas. Body and tail the pancreas are unremarkable. No significant edema. Mild fluid near the body and tail the pancreas. Spleen: Unremarkable. Adrenal glands: Unremarkable. Kidneys: Unremarkable. GI tract: Unremarkable. Vascular structures: Abdominal aorta is normal in caliber without evidence of dissection. Mesenteric arteries are patent. Lymph nodes: Unremarkable. Miscellaneous: Unremarkable. No free air or significant free fluid. Pelvic Organs: Unremarkable. Bones: Unremarkable for age. IMPRESSION: 1. No aortic dissection identified. No acute aortic process identified. 2. Inflammatory stranding near the head of the 5th and adjacent to the duodenum. Findings may be related to duodenitis or pancreatitis. Small fluid is also noted adjacent to the body and tail of the pancreas and in the transverse mesocolon. Pancreas appears non edematous. No peripancreatic fluid collections. 3. Status post cholecystectomy. Please note that all CT scans at this facility use dose modulation, iterative reconstruction, and/or weight-based dosing when appropriate to reduce radiation dose to as low as reasonably achievable. Dictated by Marci Recinos MD @ 03/18/2025 8:55:23 PM (Electronically Signed)
[2025-03-19 00:20] VITALS: PULSE 78
[2025-03-19] MEDS: LACTATED RINGERS 1000 ML 1,000 ML 125 ML IV ×2 (00:40→10:05)
[2025-03-19 04:10] VITALS: BP 156/90; PULSE 88; RESP 18; TEMP 36.7; O2SAT 97
[2025-03-19] MEDS: SODIUM CHLORIDE 0.9 % (FLUSH) 10 ML SYRINGE 5 ML IVF ×3 (04:25→20:36)
[2025-03-19] MEDS: HYDROmorphone 0.5 mg/0.5 ml inj IVP ×3 (04:25→20:36)
[2025-03-19] MEDS: ONDANSETRON 2 MG/ML inj 4 MG IVP ×2 (04:31→08:34)
[2025-03-19 06:23] LABS: Basophils Absolute Auto 0.02 K/uL (0.00-0.30); Basophils Percent Auto 0.3 % (0.0-3.0); Eosinophils Absolute Auto 0.12 K/uL (0.00-0.50); Eosinophils Percent Auto 1.6 % (0.0-7.0); Hemoglobin* 12.5 gm/dL (12.0-16.0); Immature Granulocytes Abs Auto 0.09 K/uL (0.00-0.30); Immature Granulocytes Pct Auto 1.2 %; Lymphocytes Percent Auto 11.7 % (20-44); Mean Corpuscular HGB Conc 32 gm/dL (32-36); Mean Corpuscular Hemoglobin 29 pg (26-34); Mean Corpuscular Volume 92 fL (80-100); Monocytes Percent Auto 10.3 % (0.0-11.0); Neutrophils Percent Auto 74.9 % (42.0-72.0); Platelet Count* 208 K/uL (140-440); RDW Coefficient of Variation % 13.7 % (11.5-15.5); Red Blood Count 4.25 m/uL (4.00-5.20); White Blood Count* 7.41 K/uL (4.50-11.00)
[2025-03-19 06:24] LABS: Slide Review Reflex No
[2025-03-19 06:37] LABS: Albumin* 3.4 g/dL (3.3-5.0); Chloride* 108 mmol/L (96-114); Potassium* 3.8 mmol/L (3.6-5.1); Sodium* 141 mmol/L (135-149)
[2025-03-19 06:40] LABS: Alanine Aminotransferase* 593 U/L (4-35); Alkaline Phosphatase* 136 U/L (40-150); Anion Gap 6 mEq/L (7-15); Bilirubin Total* 0.8 mg/dL (0.1-1.5); Blood Urea Nitrogen* 22 mg/dL (7-30); Calcium* 9.1 mg/dL (8.4-10.6); Carbon Dioxide* 27 mmol/L (20-32); Creatinine* 0.5 mg/dL (0.5-1.5); Est. Creatinine Clearance* 43.74; Estimated Glomerular Filt Rate 98 ml/min; Glucose* 92 mg/dL (60-115); Total Protein* 6.1 g/dL (6.0-8.3)
[2025-03-19 06:49] LABS: Aspartate Amino Transferase* 777 U/L (12-35); Lipase* > 4000 U/L (23-300)
--- NOTE | 2025-03-19 06:54 | PC.NURSE ---
Pt is alert and oriented x3. Afebrile. Pt reports 4/10 pain in upper chest that radiates back, managed with PRN medication. Pt reports pain has gotten ?better? than it was when she first came to the hospital. Pt is up SBA with walker and IV pole, voiding, and tolerating a clear liquid diet. ??
[2025-03-19 07:00] VITALS: BP 149/76; PULSE 71; RESP 15; TEMP 36.7; O2SAT 94
--- NOTE | 2025-03-19 07:26 | CRLHL7_ITS ---
For Patients: As a result of the Century Cures Act, medical imaging exams and procedure reports are released immediately into your electronic medical record. You may view this report before your referring provider. If you have questions, please contact your health care provider. Indication: Pancreatitis, hepatitis. Technique: Multisequence multiplanar MRI of the abdomen without IV contrast. Comparison: CTA chest/abdomen/pelvis dated 03/18/2025. Findings: Suboptimal study secondary to motion artifact on several sequences. Liver: No significant hepatic steatosis. Bile ducts: Within normal limits postcholecystectomy. Gallbladder: Post cholecystectomy. Pancreas: Mild interstitial edema and peripancreatic fluid, compatible with acute pancreatitis. No pancreatic duct dilation. Spleen: Unremarkable. Adrenals: Unremarkable. Kidneys: Trace bilateral pelvicaliectasis. Retroperitoneum: No lymphadenopathy. Visualized Bowel and mesentery: Visualized bowel is nondilated. Vessels: Unremarkable for an unenhanced study. Abdominal wall: No acute abdominal wall abnormality. Bones: Multilevel degenerative changes of the spine. No suspicious/aggressive focal osseous lesion. Impression: Mild pancreatic interstitial edema and peripancreatic fluid, compatible with acute pancreatitis. Dictated by Meghann Charles MD @ 03/19/2025 1:28:22 PM (Electronically Signed)
[2025-03-19] MEDS: lisinopriL 20 MG TABLET 40 MG PO (09:55)
[2025-03-19] MEDS: FLUOXETINE HCL 20 MG CAPSULE 40 MG PO (09:55)
[2025-03-19] MEDS: TRIAMTERENE-HCTZ 37.5-25 MG TB 1 TAB PO (09:55)
[2025-03-19] MEDS: ACETAMINOPHEN 325 MG TABLET 650 MG PO ×2 (10:47→17:50)
[2025-03-19 15:00] VITALS: BP 164/96; PULSE 68; RESP 20; TEMP 36.7; O2SAT 93
--- NOTE | 2025-03-19 15:07 | P.IMPN_ITS ---
Assessment and Plan Assessment and plan (1) Pancreatitis: Problem comment: - acute pancreatitis, possible causes: History of cholecystectomy many years ago, possibly area of retained stone, but seems less likely after this many years. Triglycerides are 50, so this is not caused by hypertriglyceridemia. Very little alcohol use, although did have a drink the night prior. Cause is unclear. AST and ALT are also elevated, may benefit from MRCP tomorrow if these are worsening symptoms are not improved. - admit for bowel rest with clears and IV fluids, septum control with IV ondansetron and p.r.n. Dilaudid Status: Acute (2) Hepatitis: Problem comment: - as above Status: Acute (3) Endometrial cancer, grade I: Problem comment: dx December 2024; hysterectomy February [address] [place] [address] Rasmussen Status: Acute Plan 75-year-old female with clinical and biochemical pancreatitis and hepatitis of uncertain etiology. She is status post cholecystectomy. She reports minimal alcohol ingestion. No other apparent cause for these conditions is present. I believe she is clinically improving. Will advance diet and continue to monitor for symptoms and improvement in her laboratory studies. Total Time Spent Total Time Spent: Total time spent today is 55 minutes in reviewing outside records, coordination of care, discussing with patient ongoing evaluation management of idiopathic pancreatitis. Subjective Date Seen: 03/19/25 Interval history: Martha Brooks is a 75 year old female s/p hysterectomy on 02/12/25 for stage I endometrial cancer, also has a history of hypertension, hypercholesterolemia, and nonbleeding esophageal ulcer in 2018 who presented through the emergency department for acute onset of abdominal pain. She was doing well today, watching her grandkids when she started eating a sandwich around 1:30 p.m. and suddenly felt terrible pain in her upper back between her shoulder blades that then radiated around under her ribs her epigastrium. She then had fairly severe nausea with 7 bouts of emesis. She was found to have pancreatitis on imaging and via labs. She has never had pancreatitis before. She had a cholecystectomy many years ago. She has occasional alcohol use, but did have 1 alcoholic drink last night with a very rich meal, which she notes was different than how she usually eats because she had gone out with her daughter who is in town. She denies any fevers or chills. Nothing seemed to make the pain better or worse. 03/19/2025: Patient reports still having pain. Pain medications are providing adequate relief. She underwent MRCP today which showed pancreatitis without other significant abnormality including no apparent obstruction. She reports being hungry today. She has been on clear liquids so far and tolerating that well. Reviewing outside records I see that she had endoscopy done 7 years ago showing esophageal ulcers. She was having reflux symptoms at that time. She was on a PPI for a while following that and reports having no significant symptoms or need for reflux therapy since that time. Biopsies from that showed erosive reflux esophagitis. Exam Narrative: Exam Narrative: She is alert and appears in no distress. She is oriented to her circumstances. Respirations are clear to auscultation. Cardiovascular: S1, S2, regular rate and rhythm. Abdomen: Bowel sounds active. Abdomen is soft with mild to moderate epigastric tenderness. No mass. No peritonitis. Extremities without edema. Const: Vital Signs, click to edit/add: Vital Signs - 24 hr 03/18/25 17:40 03/18/25 17:47 03/18/25 17:50 Temperature 98.2 F Pulse Rate 80 Pulse Rate [Pulse Oximeter] 82 Respiratory Rate 18 15 Blood Pressure Blood Pressure [Le ft Arm] Blood Pressure [Ri ght Upper Arm] 127/77 Pulse Oximetry 98 96 96 Oxygen Delivery Me od Room Air 03/18/25 18:01 03/18/25 18:31 03/18/25 19:01 Temperature Pulse Rate 72 69 67 Pulse Rate [Pulse Oximeter] Respiratory Rate 18 15 20 Blood Pressure 123/71 128/80 126/68 Blood Pressure [Le ft Arm] Blood Pressure [Ri ght Upper Arm] Pulse Oximetry 96 97 95 Oxygen Delivery Nj thod 03/18/25 19:32 03/18/25 20:29 03/18/25 20:31 Temperature Pulse Rate 66 72 74 Pulse Rate [Pulse Oximeter] Respiratory Rate 17 18 18 Blood Pressure 130/74 164/73 H 143/72 H Blood Pressure [Le ft Arm] Blood Pressure [Ri ght Upper Arm] Pulse Oximetry 98 96 94 Oxygen Delivery Me thod 03/18/25 21:01 03/18/25 21:32 03/18/25 22:32 Temperature 98.2 F 98.2 F Pulse Rate 74 80 Pulse Rate [Pulse Oximeter] 82 Respiratory Rate 18 18 18 Blood Pressure 133/67 152/82 H Blood Pressure [Le ft Arm] Blood Pressure [Ri ght Upper Arm] 127/77 Pulse Oximetry 95 96 Oxygen Delivery Me thod 03/18/25 22:40 03/19/25 00:20 03/19/25 00:20 Temperature 98.1 F Pulse Rate Pulse Rate [Pulse Oximeter] 66 78 Respiratory Rate 20 Blood Pressure Blood Pressure [Le ft Arm] 165/86 H Blood Pressure [Ri ght Upper Arm] Pulse Oximetry 93 Oxygen Delivery Me thod Room Air Room Air 03/19/25 04:10 03/19/25 07:00 03/19/25 07:00 Temperature 98.1 F 98.0 F Pulse Rate Pulse Rate [Pulse Oximeter] 88 71 71 Respiratory Rate 18 15 15 Blood Pressure Blood Pressure [Le ft Arm] 156/90 H 149/76 H Blood Pressure [Ri ght Upper Arm] Pulse Oximetry 97 94 Oxygen Delivery Me thod Room Air Room Air 03/19/25 07:00 Temperature Pulse Rate Pulse Rate [Pulse Oximeter] Respiratory Rate 15 Blood Pressure Blood Pressure [Le ft Arm] Blood Pressure [Ri ght Upper Arm] Pulse Oximetry 94 Oxygen Delivery Me thod Room Air Documenting provider has reviewed patient's vital signs: yes Labs Labs: Laboratory Results - last 24 hr 03/18/25 03/18/25 03/18/25 17:50 18:10 21:03 WBC 12.30 H RBC 4.45 Hgb 13.1 Hct 40.3 MCV 91 MCH 29 MCHC 33 RDW Coeff of Vilma 13.6 Plt Count 149 Neut % (Auto) 82.6 H Lymph % (Auto) 9.8 L Stanley % (Auto) 7.2 Eos % (Auto) 0.2 Baso % (Auto) 0.0 Neut # (Auto) 10.20 H Lymph # (Auto) 1.20 Stanley # (Auto) 0.90 Eos # (Auto) 0.00 Baso # (Auto) 0.00 Abs Immat Gran (auto) 0.00 Imm/Tot Granulo (auto) 0.2 D-Dimer Quant (PE/DVT) 1.99 H Sodium 141 Potassium 3.8 Chloride 105 Carbon Dioxide 29 Anion Gap 7 BUN 26 Creatinine 0.7 Estimated Creat Clear 43.74 Estimated GFR 90 Glucose 162 H Calcium 9.4 Total Bilirubin 1.0 Direct Bilirubin 0.5 AST 703 H ALT 267 H Alkaline Phosphatase 119 Troponin I < 0.01 C-Reactive Protein < 0.5 L Total Protein 6.5 Albumin 3.7 Triglycerides 50 Lipase 88023 H Ethyl Alcohol < 0.01 Lab Acknowledgement Test Added Test Added POC Troponin I 0.00 L 03/18/25 03/19/25 21:54 05:58 WBC 7.41 RBC 4.25 Hgb 12.5 Hct 39.0 MCV 92 MCH 29 MCHC 32 RDW Coeff of Vilma 13.7 Plt Count 208 Neut % (Auto) 74.9 H Lymph % (Auto) 11.7 L Stanley % (Auto) 10.3 Eos % (Auto) 1.6 Baso % (Auto) 0.3 Neut # (Auto) 5.60 Lymph # (Auto) 0.90 Stanley # (Auto) 0.80 Eos # (Auto) 0.12 Baso # (Auto) 0.02 Abs Immat Gran (auto) 0.09 Imm/Tot Granulo (auto) 1.2 D-Dimer Quant (PE/DVT) Sodium 141 Potassium 3.8 Chloride 108 Carbon Dioxide 27 Anion Gap 6 L BUN 22 Creatinine 0.5 Estimated Creat Clear 43.74 Estimated GFR 98 Glucose 92 Calcium 9.1 Total Bilirubin 0.8 Direct Bilirubin AST 777 H ALT 593 H Alkaline Phosphatase 136 Troponin I C-Reactive Protein Total Protein 6.1 Albumin 3.4 Triglycerides Lipase > 4000 H Ethyl Alcohol Lab Acknowledgement Test Added POC Troponin I Imaging MRI - abdomen: Radiologist's impression: Indication: Pancreatitis, hepatitis. Technique: Multisequence multiplanar MRI of the abdomen without IV contrast. Comparison: CTA chest/abdomen/pelvis dated 03/18/2025. Findings: Suboptimal study secondary to motion artifact on several sequences. Liver: No significant hepatic steatosis. Bile ducts: Within normal limits postcholecystectomy. Gallbladder: Post cholecystectomy. Pancreas: Mild interstitial edema and peripancreatic fluid, compatible with acute pancreatitis. No pancreatic duct dilation. Spleen: Unremarkable. Adrenals: Unremarkable. Kidneys: Trace bilateral pelvicaliectasis. Retroperitoneum: No lymphadenopathy. Visualized Bowel and mesentery: Visualized bowel is nondilated. Vessels: Unremarkable for an unenhanced study. Abdominal wall: No acute abdominal wall abnormality. Bones: Multilevel degenerative changes of the spine. No suspicious/aggressive focal osseous lesion. Impression: Mild pancreatic interstitial edema and peripancreatic fluid, compatible with acute pancreatitis.
--- NOTE | 2025-03-19 19:39 | PC.NURSE ---
End of shift [id number] - RN took over pt care at approximately 1200. Pt alert, oriented, cooperative. Up independent in room, tolerating RA and advance of diet per MD order. Denied pain and n/v before and after eating, reported headache and given medication per MAR with pt reporting improvement. Appears to be resting in bed with call light within reach.
[2025-03-19 20:30] VITALS: BP 157/94; PULSE 63; RESP 16; TEMP 36.7; O2SAT 100
[2025-03-19] MEDS: GABAPENTIN 100 MG CAPSULE 200 MG PO (20:35)
[2025-03-19] MEDS: ROSUVASTATIN CALCIUM 10 MG TABLET PO (20:35)
[2025-03-19 23:00] VITALS: BP 133/64; PULSE 63; RESP 16; TEMP 36.8; O2SAT 97
[2025-03-20] MEDS: ACETAMINOPHEN 325 MG TABLET 650 MG PO ×2 (02:39→08:14)
[2025-03-20 03:00] VITALS: BP 138/82; PULSE 69; RESP 16; TEMP 36.8; O2SAT 96
--- NOTE | 2025-03-20 05:25 | PC.NURSE ---
[id number] Pt slept well during the night, denies N/V, pain x1 during the evening, relief with prn pain med. tolerating po intake.
[2025-03-20 06:27] LABS: Basophils Absolute Auto 0.02 K/uL (0.00-0.30); Basophils Percent Auto 0.2 % (0.0-3.0); Eosinophils Absolute Auto 0.24 K/uL (0.00-0.50); Eosinophils Percent Auto 2.6 % (0.0-7.0); Hematocrit 39.4 % (33.0-51.0); Hemoglobin* 12.5 gm/dL (12.0-16.0); Immature Granulocytes Abs Auto 0.01 K/uL (0.00-0.30); Immature Granulocytes Pct Auto 0.1 %; Lymphocytes Percent Auto 6.4 % (20-44); Mean Corpuscular HGB Conc 32 gm/dL (32-36); Mean Corpuscular Hemoglobin 29 pg (26-34); Mean Corpuscular Volume 92 fL (80-100); Neutrophils Percent Auto 81.7 % (42.0-72.0); Platelet Count* 196 K/uL (140-440); RDW Coefficient of Variation % 13.8 % (11.5-15.5); Red Blood Count 4.28 m/uL (4.00-5.20); White Blood Count* 9.08 K/uL (4.50-11.00)
[2025-03-20 06:29] LABS: Slide Review Reflex No
[2025-03-20 06:40] LABS: Albumin* 3.3 g/dL (3.3-5.0); Chloride* 104 mmol/L (96-114); Potassium* 3.7 mmol/L (3.6-5.1); Sodium* 138 mmol/L (135-149)
[2025-03-20 06:43] LABS: Alanine Aminotransferase* 377 U/L (4-35); Alkaline Phosphatase* 127 U/L (40-150); Anion Gap 5 mEq/L (7-15); Aspartate Amino Transferase* 239 U/L (12-35); Bilirubin Total* 0.7 mg/dL (0.1-1.5); Blood Urea Nitrogen* 11 mg/dL (7-30); Calcium* 8.6 mg/dL (8.4-10.6); Carbon Dioxide* 29 mmol/L (20-32); Creatinine* 0.5 mg/dL (0.5-1.5); Est. Creatinine Clearance* 43.74; Estimated Glomerular Filt Rate 98 ml/min; Glucose* 106 mg/dL (60-115); Lipase* 265 U/L (23-300); Total Protein* 6.1 g/dL (6.0-8.3)
[2025-03-20] MEDS: FLUOXETINE HCL 20 MG CAPSULE 40 MG PO (08:14)
[2025-03-20] MEDS: lisinopriL 20 MG TABLET 40 MG PO (08:15)
[2025-03-20] MEDS: SODIUM CHLORIDE 0.9 % (FLUSH) 10 ML SYRINGE 5 ML IVF (08:15)
[2025-03-20] MEDS: TRIAMTERENE-HCTZ 37.5-25 MG TB 1 TAB PO (08:15)
[2025-03-20 08:46] VITALS: BP 144/96; PULSE 68; RESP 18; TEMP 36.8; O2SAT 92
[2025-03-20 08:56] VITALS: BMI 40.0
[2025-03-20 11:09] VITALS: BP 133/84; PULSE 80; RESP 16; TEMP 36.9; O2SAT 96
--- NOTE | 2025-03-20 13:46 | P.DS_ITS ---
DS: Providers Provider Date Seen: 03/20/25 Date of admission: 03/19/25 00:08 Primary care physician: Wandy Sterling MD Admitting Clinician: Erum Urias MD Attending Physician on discharge: Dimitri Simmons MD Date of Discharge: 03/20/25 DS: Diagnosis Discharge Diagnosis (1) Pancreatitis: Status: Acute Problem details: - acute pancreatitis, possible causes: History of cholecystectomy many years ago, possibly area of retained stone, but seems less likely after this many years. Triglycerides are 50, so this is not caused by hypertriglyceridemia. Very little alcohol use, although did have a drink the night prior. Cause is unclear. AST and ALT are also elevated, may benefit from MRCP tomorrow if these are worsening symptoms are not improved. - admit for bowel rest with clears and IV fluids, septum control with IV ondansetron and p.r.n. Dilaudid (2) Hepatitis: Status: Acute Problem details: Improving (3) Endometrial cancer, grade I: Status: Acute Problem details: dx December 2024; hysterectomy February [address] [place] [address] Rasmussen DS: Summary Hospital Course Hospital Course: Martha Brooks is a 75 year old female s/p hysterectomy on 02/12/25 for stage I endometrial cancer, also has a history of hypertension, hypercholesterolemia, and nonbleeding esophageal ulcer in 2018 who presented t [facility] the emergency department for acute onset of abdominal pain. She was doing well today, watching her grandkids when she started eating a sandwich around 1:30 p.m. and suddenly felt terrible pain in her upper back between her shoulder blades that then radiated around under her ribs her epigastrium. She then had fairly severe nausea with 7 bouts of emesis. She was found to have pancreatitis on imaging and via labs. She has never had pancreatitis before. She had a cholecystectomy many years ago. She has occasional alcohol use, but did have 1 alcoholic drink last night with a very rich meal, which she notes was different than how she usually eats because she had gone out with her daughter who is in town. She denies any fevers or chills. Nothing seemed to make the pain better or worse. 03/19/2025: Patient reports still having pain. Pain medications are providing adequate relief. She underwent MRCP today which showed pancreatitis without other significant abnormality including no apparent obstruction. She reports being hungry today. She has been on clear liquids so far and tolerating that well. Reviewing outside records I see that she had endoscopy done 7 years ago showing esophageal ulcers. She was having reflux symptoms at that time. She was on a PPI for a while following that and reports having no significant symptoms or need for reflux therapy since that time. Biopsies from that showed erosive reflux esophagitis. 03/20/2025: Patient reports feeling much better. Her abdominal pain is resolved. She tolerated some food last evening and was able to eat a normal breakfast this morning with no recurrent pain or nausea vomiting. She has a posterior headache this morning but otherwise feeling well. Headache improved during the day. Status at Discharge Functional status at discharge: independent ambulation Overall status at discharge: patient is progressing back to baseline Time Spent with Patient Time attestation: Total time spent providing and/or coordinating discharge services: 40 minutes Time spent: Greater than 30 minutes Exam Narrative: Exam Narrative: She is alert in no distress. She has some mild tenderness at the base of the posterior skull at the insertion of the cervical muscles. Abdomen is soft without tenderness or mass. Const: Vital Signs, click to edit/add: Vital Signs - 24 hr 03/19/25 15:00 03/19/25 15:00 03/19/25 20:30 Temperature 98.0 F 98.1 F Pulse Rate [Pulse Oximeter] 68 63 Respiratory Rate 20 20 16 Blood Pressure [Le ft Arm] 164/96 H 157/94 H Blood Pressure [Ri ght Arm] Pulse Oximetry 93 93 100 Oxygen Delivery Me thod Room Air Room Air Room Air 03/19/25 23:00 03/19/25 23:00 03/20/25 03:00 Temperature 98.2 F 98.2 F Pulse Rate [Pulse Oximeter] 63 69 Respiratory Rate 16 16 16 Blood Pressure [Le ft Arm] Blood Pressure [Ri ght Arm] 133/64 138/82 Pulse Oximetry 97 97 96 Oxygen Delivery Me thod Room Air Room Air Room Air 03/20/25 07:00 03/20/25 08:46 03/20/25 11:09 Temperature 98.3 F 98.4 F Pulse Rate [Pulse Oximeter] 68 80 Respiratory Rate 18 16 Blood Pressure [Le ft Arm] Blood Pressure [Ri ght Arm] 144/96 H 133/84 Pulse Oximetry 92 96 Oxygen Delivery Me thod Room Air Room Air Room Air DS: Data Data Completed and Pending Labs on day of discharge: Labs from last 24 hours 03/20/25 06:07 WBC 9.08 RBC 4.28 Hgb 12.5 Hct 39.4 MCV 92 MCH 29 MCHC 32 RDW Coeff of Vilma 13.8 Plt Count 196 Neut % (Auto) 81.7 H Lymph % (Auto) 6.4 L Ector % (Auto) 9.0 Eos % (Auto) 2.6 Baso % (Auto) 0.2 Neut # (Auto) 7.40 H Lymph # (Auto) 0.60 L Ector # (Auto) 0.80 Eos # (Auto) 0.24 Baso # (Auto) 0.02 Abs Immat Gran (auto) 0.01 Imm/Tot Granulo (auto) 0.1 Sodium 138 Potassium 3.7 Chloride 104 Carbon Dioxide 29 Anion Gap 5 L BUN 11 Creatinine 0.5 Estimated Creat Clear 43.74 Estimated GFR 98 Glucose 106 Calcium 8.6 Total Bilirubin 0.7 Direct Bilirubin 0.0 AST 239 H ALT 377 H Alkaline Phosphatase 127 Total Protein 6.1 Albumin 3.3 Lipase 265 Discharge Plan Discharge Disposition: Home, Self-Care Date of Admission: 03/19/25 00:08 Attending Provider on Discharge: Erick Simmons Primary Care Provider: Wandy Sterling Condition: Improved Anticipated Discharge Date/Time: 03/20/25 10:00 Discharge Medications: Continued cholecalciferol (vitamin D3) 25 mcg (1,000 unit) tablet 25 mcg PO DAILY rosuvastatin 10 mg tablet 10 mg PO DAILY triamterene-hydrochlorothiazid 37.5-25 mg tablet 1 tab PO DAILY lisinopril 40 mg tablet 40 mg PO DAILY fluoxetine 40 mg capsule 40 mg PO DAILY gabapentin 100 mg capsule 200 mg PO HS acetaminophen 500 mg tablet 500 - 1,000 mg PO Q6H PRN cyanocobalamin (vitamin B-12) 1,000 mcg tablet, sublingual 1,000 mcg sublingual DAILY famotidine 10 mg tablet 10 mg PO BID PRN fexofenadine 180 mg Tablet 180 mg PO DAILY Qty: 14 0RF Changed ibuprofen [Advil] 200 mg tablet 400 mg PO Q6H PRNQty: 100 0RF Discharge Orders: Discharge Order (Routine); Ordered 03/20/25 Ordered By: Erick Simmons Patient Education: Pancreatitis (DC) Additional Instructions: I recommend the following limits for pain medicines at home: Ibuprofen 400 mg up to every 6 hours. Acetaminophen 1000 mg 3 times a day for maximum of 3000 mg per day. Avoid alcohol. Activity Level: No Restrictions Discharge Diet: Regular Follow Up Appointments: Wandy Sterling MD [Primary Care Provider, Family Practice] Referral Note: As needed for recurrent abdominal pain Forms: [facility]
--- NOTE | 2025-03-20 15:10 | PC.NURSE ---
Pt doing well today. VSS. Denies abdominal pain. Pt denies nausea, no emesis episodes today. Pt tolerating regular diet. Ambulating independently in room. Pt discharged home via at 1505. Pt belongings and discharge instructions signed. Education reviewed, no questions or concerns at this time.
== END 2025-03-20 15:05 | disposition home or self-care (01) | DRG 439 ==
LOC: ED 22:09 → MEDSURG 22:26
PROVIDERS: Family Medicine; Admitting Provider Family Medicine; Emergency Provider Family Medicine; PCP Family Medicine; Visit Provider Family Medicine
DX: K85.90 Acute pancreatitis without necrosis or infection, unspecified (principal); B17.9 Acute viral hepatitis, unspecified; E78.00 Pure hypercholesterolemia, unspecified; C54.1 Malignant neoplasm of endometrium; I10 Essential (primary) hypertension; F32.9 Major depressive disorder, single episode, unspecified; Z90.710 Acquired absence of both cervix and uterus; Z90.49 Acquired absence of other specified parts of digestive tract; Z96.651 Presence of right artificial knee joint; Z96.652 Presence of left artificial knee joint
CPT/HCPCS: 36415; 71045; 71275; 74174; 74181; 80048; 80053; 80076; 82077; 83690; 84478; 84484; 85025; 85379; 86140; 93005; 94761; 99284; 99285; A9270; J1171; J2405; J3010; J7030; J7120; Q9967

== ENCOUNTER 2025-08-03 18:47 | Outpatient (CLI) | payer OTHER, MEDICARE, BC, SELFPAY | END 2025-08-03 18:48 | disposition home or self-care (01) | LOC: AMB 08-08 01:08 | PROVIDERS: PCP Family Medicine; Visit Provider Emergency Medicine | DX: S29.9XXA Unspecified injury of thorax, initial encounter (principal); V47.0XXA Car driver injured in collision with fixed or stationary object in nontraffic accident, initial encounter; Y92.410 Unspecified street and highway as the place of occurrence of the external cause | CPT/HCPCS: A0425; A0427 ==

== ENCOUNTER 2025-08-03 19:46 | Emergency (ER) | payer OTHER, MEDICARE, BC, SELFPAY ==
[2025-08-03] VITALS (32 sets, daily range): BP systolic 115–174; BP diastolic 72–126; PULSE 70–86; RESP 8–21; TEMP 36.7–36.8; O2SAT 91–98; BMI 39.9
--- NOTE | 2025-08-03 19:59 | CT_ITS ---
Patient: ROSIE SUERO Facility:?[facility] Patient ID:?[id number] Site Patient ID:?[id number]. Site :?[id number] Study:?CT-Neck Angio Angio CT NECK ANGIO ISOVUE 370 100ML T-08/03/2025 8:47:11 PM Ordering Physician:Winston Chery Final Report: DATE: 08/03/2025 CLINICAL HISTORY: Patient with neck pain after trauma. TECHNIQUE: Standard helical CT image acquisition of the neck up to the skull base after bolus intravenous contrast enhancement. 2D and 3D MIP images for post-processing were performed and interpreted on an independent workstation and 3D images were permanently archived. COMPARISON: CT same day. FINDINGS: The origins of the great vessels from the aortic arch are patent. The origin of the right vertebral artery is patent. The origin of the left vertebral artery is patent. The common carotid arteries are patent. There is no stenosis at the origin of the right internal carotid artery. There is no stenosis at the origin of the left internal carotid artery. The rest of the cervical segments of the internal carotid arteries are patent up to the skull base. The left vertebral artery is dominant. The cervical segments of the vertebral arteries are patent up to the skull base. The proximal intracranial vasculature is patent. The visualized lung apices are unremarkable. The thyroid gland is unremarkable. The soft tissues of the neck are unremarkable. There are degenerative changes in the cervical spine. IMPRESSION: Patent cervical vasculature. Please note that all CT scans at this facility use dose modulation, iterative reconstruction, and/or weight-based dosing when appropriate to reduce radiation dose to as low as reasonably achievable. Dictated by Lilly Rees MD @ 08/03/2025 10:03:01 PM (Electronic Signature)
--- NOTE | 2025-08-03 19:59 | CRLHL7_ITS ---
For Patients: As a result of the Century Cures Act, medical imaging exams and procedure reports are released immediately into your electronic medical record. You may view this report before your referring provider. If you have questions, please contact your health care provider. Indication: Neck pain. Trauma. Technique: Noncontrast axial CT of the cervical spine with coronal and sagittal reformats are provided. No comparisons. Findings: The overall stature, alignment of the cervical spine is within normal limits. No convincing evidence of suspicious bony fragments narrowing the central canal or neural foramina. Prevertebral soft tissues, cervical airway, dens and lateral masses are within normal limits. Mild scattered degenerative changes of the cervical spine. Impression: 1. No convincing radiographic evidence of acute osseous injury. 2. Mild scattered degenerative changes of the cervical spine. Please note that all CT scans at this facility use dose modulation, iterative reconstruction, and/or weight-based dosing when appropriate to reduce radiation dose to as low as reasonably achievable. Dictated by Dickson Gardner MD @ 08/03/2025 8:51:24 PM (Electronically Signed)
--- NOTE | 2025-08-03 19:59 | CRLHL7_ITS ---
For Patients: As a result of the Century Cures Act, medical imaging exams and procedure reports are released immediately into your electronic medical record. You may view this report before your referring provider. If you have questions, please contact your health care provider. INDICATION: Headache. Trauma TECHNIQUE: Noncontrast axial CT of the head is submitted. COMPARISON: Compared to prior study from February 13, 2025 FINDINGS: The ventricles, sulci and gyri are of normal size, shape and contour for age. Midline structures are centrally located. No convincing evidence of suspicious intra- or extra-axial fluid collections. patchy regions of decreased attenuation within the periventricular and subcortical white matter of both cerebral hemispheres. IMPRESSION: 1. No radiographic evidence of acute intracranial abnormalities. 2. Mild supratentorial white matter changes that are non-specific, but statistically most likely related to chronic small vessel ischemic disease. Please note that all CT scans at this facility use dose modulation, iterative reconstruction, and/or weight-based dosing when appropriate to reduce radiation dose to as low as reasonably achievable. Dictated by Dickson Gardner MD @ 08/03/2025 8:49:48 PM (Electronically Signed)
[2025-08-03 20:01] LABS: Creatinine, Point-of-Care* 0.9 mg/dl (0.6-1.3)
--- NOTE | 2025-08-03 20:05 | CRLHL7_ITS ---
For Patients: As a result of the Century Cures Act, medical imaging exams and procedure reports are released immediately into your electronic medical record. You may view this report before your referring provider. If you have questions, please contact your health care provider. INDICATION: Trauma. TECHNIQUE: CT chest, abdomen and pelvis acquired 100 cc Isovue 370 IV contrast. COMPARISON: CT abdomen pelvis 02/14/2025. CTA chest 02/14/2025. CTA chest abdomen pelvis 03/18/2025 FINDINGS: CHEST: Cardiovascular structures: No cardiomegaly or pericardial effusion. Main pulmonary artery is mildly dilated to 3.1 cm. No thoracic aortic aneurysm. Mediastinum and savana: No suspicious lymphadenopathy. Lungs and pleura: No focal consolidation. No pleural effusion or pneumothorax. Patent central airways. Chest wall and axilla: Soft tissue nodule at the left breast measuring 1.0 cm (series 3, image 36). No axillary lymphadenopathy. Bones: Nondisplaced fracture of the manubrium sternum. New superior endplate compression deformity of the T7 vertebral body without vertebral body retropulsion. ABDOMEN AND PELVIS: Liver: Unremarkable. Gallbladder and bile ducts: Cholecystectomy. No suspicious biliary dilatation. Pancreas: Unremarkable. Spleen: Unremarkable. Adrenal glands: Unremarkable. Kidneys: Symmetric renal enhancement. No hydronephrosis or hydroureter. No obstructing calculi. GI tract: Small hiatal hernia. No bowel obstruction. No suspicious bowel wall thickening. Normal appendix. Vascular structures: No abdominal aortic aneurysm. Scattered atherosclerotic calcifications. Lymph nodes: No suspicious lymphadenopathy. Peritoneum/Retroperitoneum/Abdominal Wall: No ascites or pneumoperitoneum. No acute abdominal wall abnormality. Pelvic Organs: Normal bladder. No suspicious adnexal mass. Bones and superficial soft tissues: Sternal and T7 vertebral compression fracture, as above. IMPRESSION: 1. Nondisplaced acute appearing fracture of the manubrium sternum. 2. Acute appearing superior endplate compression fracture of the T7 vertebral body. 3. No acute intrathoracic or intra-abdominal/pelvic pathology. 4. Mild dilatation of the main pulmonary artery which may be seen in the setting of pulmonary hypertension. 5. Soft tissue nodule at the left breast measuring 1.0 cm. Mammographic/sonographic correlation recommended. Please note that all CT scans at this facility use dose modulation, iterative reconstruction, and/or weight-based dosing when appropriate to reduce radiation dose to as low as reasonably achievable. Dictated by Ravin Thorne MD @ 08/03/2025 9:22:55 PM (Electronically Signed)
[2025-08-03 20:26] LABS: Hematocrit* 45.6 % (33.0-51.0); Hemoglobin* 14.6 gm/dL (12.0-16.0); Immature Granulocytes Abs Auto 0.13 K/uL (0.00-0.30); Immature Granulocytes Pct Auto 1.2 %; Mean Corpuscular HGB Conc 32 gm/dL (32-36); Mean Corpuscular Hemoglobin 29 pg (26-34); Mean Corpuscular Volume 91 fL (80-100); RDW Coefficient of Variation % 13.8 % (11.5-15.5); Red Blood Count* 5.04 m/uL (4.00-5.20); White Blood Count* 10.52 K/uL (4.50-11.00)
[2025-08-03 20:33] LABS: Lymphocytes Absolute Auto 1.70 K/uL (0.90-2.90); Slide Review Reflex No
[2025-08-03 20:44] LABS: Chloride* 99 mmol/L (96-114); Potassium* 3.8 mmol/L (3.6-5.1); Sodium* 136 mmol/L (135-149)
[2025-08-03 20:47] LABS: Blood Urea Nitrogen* 28 mg/dL (7-30); Creatinine* 0.8 mg/dL (0.5-1.5); Estimated Glomerular Filt Rate 77 ml/min
[2025-08-03] MEDS: ONDANSETRON 2 MG/ML inj 4 MG IVP ×2 (20:47→23:22)
[2025-08-03 20:48] LABS: Anion Gap 8 mEq/L (7-15); Calcium* 9.4 mg/dL (8.4-10.6); Carbon Dioxide* 29 mmol/L (20-32); Glucose* 139 mg/dL (60-115)
[2025-08-03 21:02] LABS: INR 0.91 (0.91-1.10); Prothrombin Time 13.1 Seconds
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
--- OUTSIDE RECORDS SUMMARY | 2025-08-03 21:09 | XMS_ITS ---
Author Organization [facility] Address [address] [place] [address] Care Team Providers Care Geoscience Technician Name Role Phone Elsewhere, Pcp Primary Care Provider Unavailabl e Active Problems * This document contains information received from the source organization and may not represent a complete record from that organization. Problem Noted Date Diagnosed Date Malignant Neoplasm Of Uterus 12/27/2024 Multiple Sclerosis, Unspecified 11/08/2024 Unspecified Ovarian Cyst Left Side 07/25/2024 [...]
--- OUTSIDE RECORDS SUMMARY | 2025-08-03 21:09 | XMS_ITS | Clinical Summary ---
Author Organization [facility] Address [address] [place] [address] Care Team Providers Care Safety Instruction Police Officer Name Role Phone Unavailable Primary Care [...]
--- OUTSIDE RECORDS SUMMARY | 2025-08-03 21:09 | XMS_ITS | Data Portability ---
Author Organization [facility] Address [address] [place] [address] Care Team Providers Care Candle Wicker Name Role Phone [facility] Referring Provider Assessment Encounter Date Assessment [...] Abnormal Flag Note LastModifiedBy Organization Detail LastModifiedTime 08/23/2008/23/2023 fluor oscop y (PROC ) No observ ation record ed. [email or web address] [facility] [address] [place], [place], [address], 09/10/2023 01:59:42 Result Notes None recorded. Problems Name Problem SNOMED Code Status Onset Date Resolution Date Notes Provider Name and Address Organization Details Recorded Time Kidney stone 82896114 Active 023 Harsh corbin MD, PHD [address], [place], [address] , [facility] 08/18/2023 10:39:59 Problem Notes None recorded. Procedures Surgical History Date Name Laterality Status Provider Name and Address Organization Details Recorded Time 8 [facility] 08/18/2023 09:39:35 Imaging Results None [...] Updated DateTime 08/18/2023 165.1 cm 38.6 kg/m2 129016.43 g [facility] 08/18/2023 09:37:16 Social History Question Answer Notes LastModified by Organizat ion Details LastModified Time Tobacco Smoking Status Never Smoker Radha prasad [facility] 08/18/2023 09:38:48 What Was The Date Of Your Most Recent Tobacco Screening? 08/18/2023 [email or web address] Information not available 08/18/2023 Sex: Unknown Functional Status Question Answer Note LastModified by Organization D etails LastModified Time What is your level of alcohol consumption? Moderate [email or web address] Information not available 08/18/2023 Mental Status None recorded. Family History Nothing Reported. Medical History Condition Response High Blood Pressure Y Kidney Stones Y Depression N GERD/Acid Reflux Y Diabetes N High Cholesterol Y Gynecological HistoryNo gynecological history recorded. Obstetrics History GPAL:G 0 P 0 0 0 0 Past Encounters Encounter ID Performer Location Encounter Start Date Encounter Closed Date Diagnosis/Indication Diagnosis SNOMED-CT Code Diagnosis ICD10 Code Diagnosis IMO Codes Diagnosis Note [id number] Harsh corbin MD, PHD [facility] [address] [place] [address] 08/18/2023 09:21:11 08/28/2023 13:58:22 Kidney stone 61502614 N20.0 Health Concerns Section Related Observation LastModified by Organization Detai ls LastModified Time None Recorded Concern Status LastModified by Organization Details LastModified Time None Recorded Advance Directives Directive None Recorded Payers Insurance Date Sequence Insurance Name Policy Number Policy Melvin Covered Member ID Melvin Member ID Guarantor Name 10/03/2023 1 [place] [employer] Martha L Postlethwaite [id number] Martha Postlethwaite 10/03/2023 2 [place] [id number] Martha L Postlethwaite [id number] Martha Postlethwaite Notes Date Note Type [...] MDD, stones (2007)PSH: 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
--- OUTSIDE RECORDS SUMMARY | 2025-08-03 21:09 | XMS_ITS | Clinical Summary ---
Author Organization [facility] Address [address] [place] [id number] Care Team Providers Care Commission Auditor Name Role Phone Wandy Sterling MD Primary [...] 21 10/14/2021 S/P knee replacement 03/28/2011 011 half-way (current) use of anticoagulants 03/22/2011 08/16/2011 Overview (03/22/2011): INR Goal Range: 1.5 - 2.5 Encounters Date Type Department Care Team Description 07/25/2025 9:00 AM CDT Telemedicine [facility] [address] [facility] [phone] Milena Ramirez, PhD, LP Individual Therapy 07/14/2025 4:00 PM CDT Telemedicine [facility] [address] [facility] [address] Milena Ramirez, PhD, LP Individual Therapy 07/07/2025 9:45 AM CDT Telemedicine [facility] [address] [facility] [phone] Milena Ramirez, PhD, LP Individual Therapy 06/25/2025 4:45 PM CDT Telemedicine [facility] [address] [facility] [place] [phone] Milena Ramirez, PhD, LP Individual Therapy 05/28/2025 1:45 PM CDT Telemedicine [facility] [address] [place] [phone] Milena Ramirez, PhD, LP Individual Therapy 05/22/2025 9:45 AM CDT Telemedicine [facility] [address] [place] [phone] Milena Ramirez, PhD, LP Individual Therapy 05/08/2025 9:45 AM CDT Telemedicine [facility] [address] [place] [phone] Milena Ramirez, PhD, LP Individual Therapy 05/08/2025 Travel from Last 3 Months Immunizations Immunization [...] (Age 80) Maternal Grandmother (Age 98) Mother Marluz Paternal Grandfather Paternal Grandmother Sister 1 Beryl Alive Sister 2 Social History Tobacco Use Types Packs/Day Years Used Date Smoking Tobacco: Never Smokeless Tobacco: Never Tobacco Cessation:Counseling Given: Yes Alcohol Use Standard Drinks/Week Comments Yes 2 (1 standard drink = 0.6 oz pur e alcohol) one drink per week PHQ-2 Answer Date Recorded PHQ-2 TOTAL SCORE 2 05/08/2025 Social Connections Answer Date Recorded Do you [...] on file Legal Sex Female 5:24 AM IT ENGINEER Gender Identity Not on file Sexual Orientation [...] Comments Blood Pressure 106/71 10/31/2024 10:12 AM IT ENGINEER Pulse 72 10/31/2024 10:12 AM IT ENGINEER Temperature 36.4 C (97.5 F) 09/13/2023 5:15 PM IT ENGINEER Respiratory Rate 18 09/13/2023 6:15 PM IT ENGINEER Oxygen Saturation 95% 10/31/2024 10:12 AM IT ENGINEER Inhaled Oxygen Concentration - - Weight 108 kg (238 lb) 10/31/2024 10:12 AM IT ENGINEER Height 165.1 cm (5' 5) 10/31/2024 10:12 AM IT ENGINEER Body Mass Index 39.61 10/31/2024 10:12 AM IT ENGINEER Plan of Treatment Upcoming Encounters Date Type Department Care Team (Late st Contact Info) Description 08/04/2025 9:45 AM CDT Telemedicine [facility] [address] [place] [phone] Milena Ramirez, PhD, LP [address] [place] [address] 08/11/2025 5:30 PM IT ENGINEER Telemedicine [facility] [address] [place] [address] Milena Ramirez, PhD, LP [address] [place] [address] 08/21/2025 9:00 AM IT ENGINEER Telemedicine [facility] [address] [place] [address] Milena Ramirez, PhD, LP [address] [place] [address] Health Maintenance Due Date Last Done Comments RSV vaccine for adults or (1 - 1-dose 75+ series) 2025 Influenza Vaccine (#1) 2025 , 06/28/2023, 06/28/2023, Additional history exists BMI (ht and wt on same day) for age 18+ 10/31/2025 10/31/2024, 09/12/2024, 08/21/2023, Additional history exists Medicare Wellness for age 65+ 11/01/2025 10/31/2024, 10/20/2022, 10/14/2021, Additional history exists Depression screening for age 12+ 05/08/2026 05/08/2025, 11/29/2024, 11/22/2024, Additional history exists Tetanus booster 09/26/2027 09/26/2017, 12/06/2006 Colonoscopy through age 75 12/07/202812/07 (Completed outside of [facility]), 10/25/2018, 10/25/2018, Additional history exists Lipids for age 45-75 10/10/2029 10/10/2024, 03/25/2024, 10/20/2022, Additional history exists Pneumococcal series for age 50+ Completed 09/26/2017, 09/20/2016 DEXA/DXA scan for age 65+ Completed 10/16/2017, Hepatitis C screening for age 18-79 Completed 10/10/2019 Zoster (shingles) series for age 50+ Completed 10/15/2022, 08/05/2022 Hepatitis B series for 19+ Aged Out N o longer eligible based on patient's age to complete this topic Medical Devices Implanted Type Area Salesperson New Cars Device Identifier Shelf Expiration Date Model / Serial / Lot Stent Uret [id number] Contour - [id number] Implanted:Qty: 1 on 08/23/2023 by Harsh Manzano MD at [facility] Left: [facility] 04/13/2026 [id number] / / [id number] Stent Uret [id number] Contour - [id number] Implanted:Qty: 1 on 09/13/2023 by Gilson Smith MD at [facility] Left: Ureter [facility] 03/28/2026 [id number] / / [id number] Procedures Procedure Name Priority Date/Time Associated Diagnosis Comments LIPID PANEL W REFLEX MEASURED LDL Routine 10/10/2024 2:22 PM IT ENGINEER Hyperlipidemia, unspecified hyperlipidemia type ANTI HCV Routine 10/10/2019 1:15 PM IT ENGINEER Encounter for hepatitis C screening test for low risk patient COLONOSCOPY 10/25/2018 8:24 AM IT ENGINEER XR DXA BONE DENSITY 2 SITES AXIAL Routine 10/16/2017 2:26 PM IT ENGINEER Asymptomatic postmenopausal state from Last 3 Months or Most Recently Relevant to Health Maintenance Results * (ABNORMAL) LIPID PANEL W REFLEX MEASURED LDL (10/10/2024 2:22 PM IT ENGINEER) CHOLESTEROL, TOTAL 124 <200 mg/dL [facility] HDL CHOLESTEROL 43(L) > OR = 50 mg/dL [facility] TRIGLYCERIDES 140 <150 mg/dL [facility] LDL-CHOLESTEROL 59 mg/dL (calc) [facility] Comment: Reference range: <100 Desirable range <100 mg/dL for primary prevention; <70 mg/dL for patients with CHD or diabetic patients with > or = 2 CHD risk factors. LDL-C is now calculated using the Dimitry calculation, which is a validated novel method providing better accuracy than the Friedewald equation in the estimation of LDL-C. Myron UGALDE et al. NAZIA. 2013;310(19): 3005-5929 (http://education.Klip/faq/UTH391) CHOL/HDLC RATIO 2.9 <5.0 (calc) [facility] NON HDL CHOLESTEROL 81 <130 mg/dL (calc) [facility] Comment: For patients with diabetes plus 1 major ASCVD risk factor, treating to a non-HDL-C goal of <100 mg/dL (LDL-C of <70 mg/dL) is considered a therapeutic option. Blood BLOOD SPECIMEN / Unknown 10/10/2024 2:22 PM IT ENGINEER 10/10/2024 2:23 PM IT ENGINEER Wandy Sterling MD CHEMISTRY Final Result [facility] [address] [place] [address], [facility] [address] [place] [address] * ANTI HCV (10/10/2019 1:15 PM IT ENGINEER) HEPATITIS C ANTIBODY Non-React macy Non-React macy 10/10/2019 7:34 PM IT ENGINEER [facility] Comment:Antibodies to HCV no t detected; does not exclude the possibility of exposure to HCV. Blood BLOOD SPECIMEN / Unknown Butterfly / Unknown 10/10/2019 1:15 PM IT ENGINEER 10/10/2019 1:15 PM IT ENGINEER us Wandy Sterling MD SEND OUTS Final Result [facility] [address] [place] [address], [place] * COLONOSCOPY (10/25/2018 8:24 AM IT ENGINEER) 10/25/2018 8:24 AM IT ENGINEER Narrative Transcriptions Myron Graham MD - 10/25/2018 9:08 AM CST [facility] Procedure Date: 10/25/2018 Gender: Female Date of [...] candidate for conscious sedation. The Colon [id number] [id number] was passed through the anus and advancedto [...] reponse to care. [facility] and nursing notes for moderate sedation details. Total physician intraservice time was 21 minutes. Myron Graham MD 10/25/2018 9:08:09 AM This report has been signed electronically. Note Initiated On: 10/25/2018 8:24 AM Procedure Code(s): --- Professional --- 95914, Colonoscopy, flexible; with biopsy, single or multiple Diagnosis Code(s): --- Professional --- Z86.010, Personal history of colonicpolyps D12.3, Benign neoplasm of transverse colon (hepatic flexure or splenic flexure) D12.4, Benign neoplasm of descending colon Q43.8, Other specified congenitalmalformations of intestine CPT copyright 2017 [employer]. All rights reserved. The codes documented in this report are preliminary and upon organization development consultant reviewmay be revised to meet current compliance requirements. Scope In: 8:44:14 AM Scope Withdrawal Time 0 hours 12 minutes 25 seconds Scope Out: 9:03:35 AM us Myron Graham MD PROCEDURE ORD Final Res ult * (ABNORMAL) XR DXA BONE DENSITY 2 SITES AXIAL (10/16/2017 2:26 PM IT ENGINEER) Anatomical Region Laterality Modality Spine, HIPS, HIPL, HIPR Other Narrative 10/20/2017 4:29 PM IT ENGINEER Please see scanned document for results of this study. 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
--- OUTSIDE RECORDS SUMMARY | 2025-08-03 21:09 | XMS_ITS | Clinical Summary ---
Author Organization [facility] Address [address] [place] [address] Care Team Providers Care Roll Plugger Name Role Phone Elsewhere, Pcp Primary Care Provider Unavailabl e Source Comments Patient records contain information from all sites at [facility]. For routine questions regarding patient records, call [phone] during business hours, M-F 8:00 AM - 5:00 PM Central Time. Record requests for emergency care only can be directed to [phone] at any time.[facility] Allergies Active Allergy Reactions Criticality Noted Date [...] with acetaminophen every 3 hours. 5 Active ondansetron (Zofran) 4 mg tabletIndicati [...] Of Falling 09/11/2023 Hypertension Essential Primary 04/03/2007 Immunizations Immunization Administration Dates Next Due Influenza [...] Diabetes Father father age 30 Breast cancer (in one breast) Mother mother age 50 Dementia Mother mother [...] drink = 0.6 oz pur e alcohol) [facility] Utilities Answer Date Recorded In the past 12 months has e [employer], gas, oil, or water [employer] threatened to shut off services in your [...] by your partner or ex-partner? No 02/13/2025 Hunger Vital Sign Answer Date Recorded Within [...] things needed for daily living? No 02/13/2025 Housing Stability Answer Date Recorded What is your living situation today? I have a [facility] place to live 02/13/2025 Comments No Sex and Gender Information Value Date Recorded Sex Assigned at Female 10/29/2023 4:34 PM PROTECTION AGENT Legal Sex Female 8:57 AM PROTECTION AGENT Gender Identity Female 10/29/2023 4:34 PM PROTECTION AGENT Sexual Orientation Straight 10/29/2023 4: 34 PM PROTECTION AGENT Last Filed Vital Signs Vital Sign Reading [...] exists RSV vaccine - (32-36 weeks) or 50+ years (1 - 1-dose 75+ series) 2025 COVID-19 Vaccine ( season) 2025 01/20/2025, 08/01/2024, 12/11/2023, Additional history exists Influenza Vaccine (#1) 2025 , 06/28/2023, 06/28/2023, Additional history exists Creatinine Level (Kidney Function Test) 11/08/2025 11/08/2024, [...] Discontinued 11/10/2023 Hepatitis C Screening Completed 11/10/2023 Depression Screening (Annual PHQ-2) Completed 11/08/2024, 11/05/2024 Fall Risk Screen (Annual) Completed 02/12/2025 IPV Vaccines Aged Out No longer eligi ble based on patient's age to complete this topic Medical Devices Implanted Type Area Curb Setter Helper Device Identifier Shelf Expiration Date Model / Serial / Lot Hardware E.G. Pins/Screws/R ods Hardware e.g. pins/screws/ rods Right: Wrist Description:Oct 2023 Knee Implant Knee Implant Bilateral : Knee Description:2010 & 2021 Ocular Lens Ocular Lens Bilateral : Eye Explanted Type Area Curb Setter Helper Device Identifier Shelf Expiration Date Model / Serial / Lot Stent Other Explanted:09/08 (Quantity not on file) Stent Other Kidney Procedures Procedure Name Priority Date/Time Associated Diagnosis Comments BASIC METABOLIC PANEL, S/P Routine 11/08/2024 12:33 PM PROTECTION AGENT Preanesthetic Medical Exam BI BREAST DIAGNOSTIC BILATERAL WITH TOMOSYNTHESIS RAD - Routine (most inpatients and all outpatients) 01/09/2024 10:41 AM CDT Intra Abdominal And Pelvic Swelling Mass And Lump Unspecified Site Lump In The Left Breast Lower Inner Quadrant COLONOSCOPY Routine 12/04/2023 12:48 PM PROTECTION AGENT Polyp Colon Personal History HCV AB SCRN W/REFLEX TO HCV PCR, S Routine 11/10/2023 8:31 AM PROTECTION AGENT Weakness Leg Left Multiple Sclerosis (HCC) Demyelinating Disease Central Nervous System (HCC) HEPATITIS B SURFACE ANTIGEN Routine 11/10/2023 8:31 AM PROTECTION AGENT Weakness Leg Left Multiple Sclerosis (HCC) Demyelinating Disease Central Nervous System (HCC) from Last 3 Months or Most Recently Relevant to Health Maintenance Results * (ABNORMAL) Basic Metabolic Panel (11/08/2024 12:33 PM PROTECTION AGENT) Potassium, P 4.2 3.6 - 5.2 mmol/L 11/08/2024 6:35 PM PROTECTION AGENT OWAT Sodium, P 140 135 - 145 mmol/L 11/08/2024 6:35 PM PROTECTION AGENT OWAT Chloride, P 103 98 - 107 mmol/L 11/08/2024 6:35 PM PROTECTION AGENT OWAT Bicarbonate, P 26 22 - 29 mmol/L 11/08/2024 6:35 PM PROTECTION AGENT OWAT Anion Gap, P 11 7 - 15 11/08/2024 6:35 PM PROTECTION AGENT OWAT BUN (Blood Urea Nitrogen), P 23(H) 6 - 21 mg/dL 11/08/2024 6:35 PM PROTECTION AGENT OWAT Creatinine 0.66 0.59 - 1.04 mg/dL 11/08/2024 6:35 PM PROTECTION AGENT OWAT Estimated GFR (eGFR) >90 >=60 mL/min/BSA 11/08/2024 6:35 PM PROTECTION AGENT OWAT Comment: Estimated GFR calculated using the 2020 CKD_EPI creatinine equation. Calcium, Total, P 9.2 8.8 - 10.2 mg/dL 11/08/2024 6:35 PM PROTECTION AGENT OWAT Glucose, P 93 70 - 140 mg/dL 11/08/2024 6:35 PM PROTECTION AGENT OWAT Blood (Blood, Venous) 11/08/2024 12:33 PM PROTECTION AGENT 11/08/2024 5:54 PM PROTECTION AGENT Justyn Valladares APRN, C.N.P., M.S.N. LAB BLOOD ADD-ON Final Result [facility] [address] [place] [address], [place] OWAT [facility] [address] [place] [address] * BI Breast Diagnostic Bilateral with Tomosynthesis [...] x 0.5 x 1.9 cm. Both the neurology hospitalist and Dr. Moss participated in the ultrasound [...] x 0.5 x 1.9 cm. Both the neurology hospitalist and Dr. Moss participated in the ultrasoundevaluation. [...] forComparison. Grupo Rojas, B .Ch., B.A.O., Ph.D. IMG BI PROCEDURES Edited Result - Final * Colonoscopy (12/04/2023 12:48 PM PROTECTION AGENT) Anatomical Region Laterality Modality Other 12/04/2023 12:4 8 PM PROTECTION AGENT Impressions 12/04/2023 2:24 PM PROTECTION AGENT Post-op Diagnoses: - The entire examined colon is normal on direct and retroflexion views. - No specimens collected. Narrative 12/04/2023 2:24 PM PROTECTION AGENT G[facility] 9 GI GI Patient Name: Martha [...] bowel preparation was evaluated using the BBPS ([place] Bowel Preparation Scale) with scores of: Right [...] M.D. GI PROCEDURE ORDERABLES Fin al Result * HCV Ab Scrn w/Reflex to HCV PCR, Serum (11/10/2023 8:31 AM PROTECTION AGENT) HCV Ab Screen, S Negative Negative 11/10/2023 11:52 AM PROTECTION AGENT [facility] Comment:Sctous-jj-agbsny rat io is <1.00. Blood (Blood, Venous) 11/10/2023 8:31 AM PROTECTION AGENT 11/10/2023 10:44 AM PROTECTION AGENT Grupo Rojas, B .Ch., B.A.O., Ph.D. LAB MICROBIOLOGY - BLOOD ORDERABLES Final Result [facility] [address] [place] [address] [facility] [address] [place] [address] * Hepatitis B Surface Antigen (11/10/2023 8:31 AM PROTECTION AGENT) HBs Antigen, S Negative Negative 11/10/2023 11:34 AM PROTECTION AGENT [facility] Blood (Blood, Venous) 11/10/2023 8:31 AM PROTECTION AGENT 11/10/2023 10:44 AM PROTECTION AGENT Grupo Rjoas, B .Paul., B.A.O., Ph.D. LAB MICROBIOLOGY - BLOOD ORDERABLES Final Result [facility] [address] [place] [address] [facility] [address] [place] [address] from Last 3 Months or Most Recently Relevant to Health Maintenance Insurance [address] [place] [id number] [facility] MEDICARE Advance Directives For more information, please contact: [phone] * Full Code (Latest Code Status on [...] Answer Comments Full Code: Discussed Care Teams Roll Plugger Relationship Specialty Start Date End Date Elsewhere, Pcp PCP - General Internal Medicine 09/11/23
--- NOTE | 2025-08-03 22:55 | PC.NURSE ---
Pt transferred to room 1 out of [facility]. All cares explained including waiting for [place] bed. 2nd trop done as ordered.
[2025-08-04 00:06] VITALS: O2SAT 95
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
--- OUTSIDE RECORDS SUMMARY | 2025-08-04 01:55 | XMS_ITS | Encounter Summary ---
Author Organization [facility] Address [address] [place] [address] Care Team Providers Care Acupuncturist Name Role Phone Elsewhere, Pcp Primary Care Provider Unavailabl e Encounter Details Date Type Department Care Team (Late Contact Info) Description 08/04/2025 1:55 AM CDT Ancillary Procedure Department of Radiology in [place], [place] [address] [place] [address] Kaya Dyson M.D. [address] [place] [address] Arrived Social History Tobacco Use Types Packs/Day [...] things needed for daily living? No 08/04/2025 [facility] Utilities Answer Date Recorded In the past 12 months has e electric, gas, oil, or water company threatened to shut off services in your home? No 08/04/2025 Housing Stability Answer Date Recorded What is your living situation today? I have a [facility] place to live 08/04/2025 Comments No Sex and Gender Information Value Date Recorded Sex Assigned at Female 10/29/2023 4:34 PM PRODUCTION CONTROL ANALYST Legal Sex Female 8:57 AM PRODUCTION CONTROL ANALYST Gender Identity Female 10/29/2023 4:34 PM PRODUCTION CONTROL ANALYST Sexual Orientation Straight 10/29/2023 4: 34 PM PRODUCTION CONTROL ANALYST documented as of this encounter Plan of Treatment Not on file documented as of this encounter Procedures Procedure Name Priority Date/Time Associated Diagnosis Comments INTERPRETATION OF OUTSIDE CT SPINE RAD - Semiurgent (Fast; most ED patients; some inpatients) 08/04/2025 6:10 AM CDT documented in this encounter Results * Interpretation of Outside CT Spine (08/04/2025 [...] or traumatic malalignment of the cervical spine. us Kaya Dyson M.D. IMDebby CT PROCEDURES Final Re sult documented in this encounter Visit Diagnoses Not on filedocumented in this encounter Care Teams Acupuncturist Relationship Specialty Start Date End Date Elsewhere, Pcp PCP - General Internal Medicine 09/11/23 documented as of this encounter
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
--- OUTSIDE RECORDS SUMMARY | 2025-08-04 19:34 | XMS_ITS | Clinical Summary ---
Author Organization [facility] Address [address] [place] [address] Care Team Providers Care Frame Opener Name Role Phone Unavailable Primary Care Provider [...]
--- OUTSIDE RECORDS SUMMARY | 2025-08-04 19:34 | XMS_ITS | Clinical Summary ---
Author Organization [facility] Address [address] [place] [id number] Care Team Providers Care Coal Handling Supervisor Name Role Phone Wandy Sterling MD Primary [...] residential (current) use of anticoagulants 03/22/2011 08/16/2011 Overview (03/22/2011): INR Goal Range: 1.5 - 2.5 Encounters Date Type Department Care Team Description 08/04/2025 9:45 AM CDT Telemedicine [facility] [address] [facility] [address] Milena Ramirez, PhD, LP Failed Appointment 07/25/2025 9:00 AM CDT Telemedicine [facility] [address] [place] [address] Milena Ramirez, PhD, LP Individual Therapy 07/14/2025 4:00 PM CDT Telemedicine [facility] [address] [facility] [place] [address] Milena Ramirez, PhD, LP Individual Therapy 07/07/2025 9:45 AM CDT Telemedicine [facility] [address] [facility] [place] [address] Milena Ramirez, PhD, LP Individual Therapy 06/25/2025 4:45 PM CDT Telemedicine [facility] [address] [place] [address] Milena Ramirez, PhD, LP Individual Therapy 05/28/2025 1:45 PM CDT Telemedicine [facility] [address] [place] [address] Milena Ramirez, PhD, LP Individual Therapy 05/22/2025 9:45 AM CDT Telemedicine [facility] [address] [place] [address] Milena Ramirez, PhD, LP Individual Therapy 05/08/2025 9:45 AM CDT Telemedicine [facility] [address] [place] [address] Milena Ramirez, PhD, LP Individual Therapy 05/08/2025 [...] on file Legal Sex Female 5:24 AM [facility] [employer] INSTRUCTION Gender Identity Not on file Sexual Orientation [...] Comments Blood Pressure 106/71 10/31/2024 10:12 AM DE[facility] [employer] INSTRUCTION Pulse 72 10/31/2024 10:12 AM [facility] INSTRUCTION Temperature 36.4 C (97.5 F) 09/13/2023 5:15 PM DEAN OF INSTRUCTION Respiratory Rate 18 09/13/2023 6:15 PM DE[facility] INSTRUCTION Oxygen Saturation 95% 10/31/2024 10:12 AM DEAN OF INSTRUCTION Inhaled Oxygen Concentration - - Weight 108 kg (238 lb) 10/31/2024 10:12 AM DEAN OF INSTRUCTION Height 165.1 cm (5' 5) 10/31/2024 10:12 AM DEAN OF INSTRUCTION Body Mass Index 39.61 10/31/2024 10:12 AM DEAN OF INSTRUCTION Plan of Treatment Upcoming Encounters Date Type Department Care Team (Late st Contact Info) Description 08/11/2025 5:30 PM DE[facility]STRUCTION Telemedicine [facility] [address] [place] [phone] Milena Ramirez, PhD, LP [address] [place] [address] 08/21/2025 9:00 AM DEAN OF INSTRUCTION Telemedicine [facility] [address] [place] [phone] Milena Ramirez, PhD, LP [address] [place] [address] Health Maintenance Due Date Last Done Comments [...] through age 75 12/07/202812/07 [facility] 10/25/2018, 10/25/2018, Additional history exists Lipids for [...] this topic Medical Devices Implanted Type Area Crosstie Inspector Device Identifier Shelf Expiration Date Model / Serial / Lot Stent Uret [id number] Contour - [id number] Implanted:Qty: 1 on 08/23/2023 by Harsh Manzano MD at [facility] Left: [facility] 04/13/2026 [id number] / / [id number] Stent Uret [id number] Contour - [id number] Implanted:Qty: 1 on 09/13/2023 by Gilson Smith MD at [facility] Left: [facility] [facility] 03/28/2026 [id number] / / [id number] Procedures Procedure Name Priority Date/Time Associated Diagnosis Comments LIPID PANEL W REFLEX MEASURED LDL Routine 10/10/2024 2:22 PM DE[facility] [employer] INSTRUCTION Hyperlipidemia, unspecified hyperlipidemia type ANTI HCV Routine 10/10/2019 1:15 PM DE[facility] OF INSTRUCTION Encounter for hepatitis C screening test for low risk patient COLONOSCOPY 10/25/2018 8:24 AM DEAN OF INSTRUCTION XR DXA BONE DENSITY 2 SITES AXIAL Routine 10/16/2017 2:26 PM DEAN OF INSTRUCTION Asymptomatic postmenopausal state from Last 3 Months or Most Recently Relevant to Health Maintenance Results * (ABNORMAL) LIPID PANEL W REFLEX MEASURED LDL (10/10/2024 2:22 PM DEAN OF INSTRUCTION) CHOLESTEROL, TOTAL 124 <200 mg/dL [facility] HDL CHOLESTEROL 43(L) > OR = 50 mg/dL [facility] TRIGLYCERIDES 140 <150 mg/dL [facility] LDL-CHOLESTEROL 59 mg/dL (calc) [facility] Comment: Reference range: <100 Desirable range <100 mg/dL for primary prevention; <70 mg/dL for patients with CHD or diabetic patients with > or = 2 CHD risk factors. LDL-C is now calculated using the Dimitry calculation, which is a validated novel method providing better accuracy than the Friedewald equation in the estimation of LDL-C. Myron SS et al. NAZAI. 2013;310(19): 1762-5452 (http://education.Nano/faq/UVE322) CHOL/HDLC RATIO 2.9 <5.0 (calc) [facility] NON HDL CHOLESTEROL 81 <130 mg/dL (calc) [facility] Comment: For patients with diabetes plus 1 major ASCVD risk factor, treating to a non-HDL-C goal of <100 mg/dL (LDL-C of <70 mg/dL) is considered a therapeutic option. Blood BLOOD SPECIMEN / Unknown 10/10/2024 2:22 PM DEAN OF INSTRUCTION 10/10/2024 2:23 PM DEAN OF INSTRUCTION Wandy Sterling MD CHEMISTRY Final Result Performing Organization Address [facility] Co de Phone Number Advanced Patient [facility] [address] [place] [address], [address] [address] * ANTI HCV (10/10/2019 1:15 PM DEAN OF INSTRUCTION) Pathologist [facility] HEPATITIS C ANTIBODY Non-React macy Non-React macy 10/10/2019 7:34 PM DEAN OF INSTRUCTION [facility] Comment:Antibodies to HCV no t detected; does not exclude the possibility of exposure to HCV. Blood BLOOD SPECIMEN / Unknown Butterfly / Unknown 10/10/2019 1:15 PM DEAN OF INSTRUCTION 10/10/2019 1:15 PM DEAN OF INSTRUCTION Wandy Sterling MD SEND OUTS Final Result [facility] [address] [place] [address], [place] * COLONOSCOPY (10/25/2018 8:24 AM DEAN OF INSTRUCTION) 10/25/2018 8:24 AM DEAN OF INSTRUCTION Narrative Transcriptions Myron Graham MD - 10/25/2018 9:08 AM CST [facility] Procedure Date: 10/25/2018 Gender: Female Date of : 1950 Admit Type: Outpatient Procedure: Colonoscopy Proceduralist: Myron Grahma MD , Miroslava Mendoza (Nurse) Indications/Pre-Op Diagnosis: [...] candidate for conscious sedation. The Colon CF-[id number] [id number] was passed through the anus and advancedto [...] reponse to care. [facility] flow[facility]ets and nursing notes for moderate sedation details. Total physician intraservice time was 21 minutes. Myron Graham MD 10/25/2018 9:08:09 AM This report has been signed electronically. Note Initiated On: 10/25/2018 8:24 AM Procedure Code(s): --- Professional --- 38193, Colonoscopy, flexible; with biopsy, single or multiple Diagnosis Code(s): --- Professional --- Z86.010, Personal history of colonicpolyps D12.3, Benign neoplasm of transverse colon (hepatic flexure or splenic flexure) D12.4, Benign neoplasm of descending colon Q43.8, Other specified congenitalmalformations of intestine CPT copyright 2017 [employer]. All rights reserved. The codes documented in this report are preliminary and upon renal dietitian reviewmay be revised to meet current compliance requirements. Scope In: 8:44:14 AM Scope Withdrawal Time 0 hours 12 minutes 25 seconds Scope Out: 9:03:35 AM us Myron Graham MD PROCEDURE ORD Final Res ult * (ABNORMAL) XR DXA BONE DENSITY 2 SITES AXIAL (10/16/2017 2:26 PM DEAN OF INSTRUCTION) Anatomical Region Laterality Modality Spine, HIPS, HIPL, HIPR Other Narrative 10/20/2017 4:29 PM DEAN OF INSTRUCTION Please see scanned document for results of this study. us Wandy Sterling MD DEXA Final Result from Last 3 Months or Most Recently Relevant to Health Maintenance Insurance MEDICARE PB ONLY [facility] MEDICARE PART B HB ONLY [facility] MEDICARE PB ONLY MEDICARE PART B HB ONLY Advance Directives Documents on File Type Date Recorded Patient Distance Learning Coordinator Expl anation Healthcare Directive 11/14/2019 2:03 PM [...] Code Status Discussion: Not Discussed Care Teams Coal Handling Supervisor Relationship Specialty Start Date End Date Wandy Sterling MD [address] [place] [address] PCP - General 01/28/06
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
--- OUTSIDE RECORDS SUMMARY | 2025-08-04 19:34 | XMS_ITS ---
Author Organization [facility] Address [address] [place] [address] Care Team Providers Care Orthotics Prosthetics Technician Name Role Phone Elsewhere, Pcp Primary Care Provider Unavailabl e Active Problems * This document contains information received from the source organization and may not represent a complete record from that organization. Problem Noted Date Diagnosed Date Observation Following [...]
== END 2025-08-04 00:11 | disposition short-term general hospital (02) ==
PROVIDERS: Family Medicine; Emergency Provider Emergency Medicine; PCP Family Medicine
DX: S22.20XA Unspecified fracture of sternum, initial encounter for closed fracture (principal); S22.069A Unspecified fracture of T7-T8 vertebra, initial encounter for closed fracture; V49.3XXA Car occupant (driver) (passenger) injured in unspecified nontraffic accident, initial encounter
CPT/HCPCS: 36415; 70450; 70498; 71260; 72125; 74177; 80048; 82565; 84484; 85025; 85610; 93005; 94761; 96374; 96375; 99285; 99291; G0390; J1171; J2405; J3010

== ENCOUNTER 2025-08-03 23:48 | Outpatient (CLI) | payer OTHER, MEDICARE, BC, SELFPAY | END 2025-08-03 23:49 | disposition home or self-care (01) | LOC: AMB 08-08 01:12 | PROVIDERS: PCP Family Medicine; Visit Provider Family Medicine | DX: S22.060A Wedge compression fracture of T7-T8 vertebra, initial encounter for closed fracture (principal) | CPT/HCPCS: A0425; A0434 ==